=== PATIENT | male | born 1985 | race Caucasian/White ===

== ENCOUNTER 2018-04-03 18:24 | Emergency (ER) | payer MEDICAID, SELFPAY ==
[2018-04-03 18:27] VITALS: BP 138/118; PULSE 94; RESP 18; TEMP 36.4; O2SAT 97
--- NOTE | 2018-04-03 18:39 | W.ED.GENAD ---
Discharge Plan Disposition Patient Disposition: [facility] Condition: Stable Discharge Details Chief Complaint: Nk/Back Pain Clinical Impression: Back pain, Bulging lumbar disc Primary Care Provider: Rodriguez Roberts ED Provider: Romel Issa Home Meds and New Rx's Prescriptions: No Action vitamin B complex 1 EACH capsule 1 ea PO DAILY RF: 0 tramadol 50 mg tablet 50 mg PO Q4H PRN Qty: 180 RF: 2 diazepam 5 mg tablet 5 mg PO HS PRN (Reason: muscle spasm) Qty: 30 RF: 0 methylphenidate HCl [Ritalin] 20 mg tablet 20 mg PO TID MDD 60 mg Qty: 90 RF: 0 Medical Decision Making 32-year-old male states that 6 days ago he noticed numbness on his right neck and upper extremity. He now states he has had 2 days of low back pain. Over the past day and a half he noted increased numbness primarily below his umbilicus, to the right leg as well as his perineum. This afternoon while getting off a couch he felt abrupt increase in the low back pain and now reports numbness from the waist down about motor with her deficit. He denies recent fall, injury, illness. His temp is 36, pulse 94, somewhat hypertensive with blood pressure 141/87. Exam reveals decreased subjective sensation below the umbilicus including in the saddle distribution. Rectal exam with weak but present tone. No motor deficits. Reflexes intact. Differential diagnosis would include spinal cord lesion, central mass or tumor, myelopathy. Labs obtained which reveal unremarkable CBC, chemistries notable for hypomagnesemia. CRP within normal range. Patient given supplemental magnesium. Screening head CT and spine CT obtained. There is a broad-based disc bulge at C6/7/T1, there is also broad-based disc bulge at L4/5/S1. With these findings and the patient's presentation I am concerned for the possibility of cauda equina syndrome. On-call neurosurgery at [facility] contacted, Dr Yan. She agrees the patient should be evaluated for urgent MRI. Patient to be transported to [facility]. Lab Data Lab results reviewed: Yes I reviewed the patient's lab results. Laboratory Results - last 24 hr 04/03/18 04/03/18 04/03/18 19:03 19:03 19:03 WBC 7.99 RBC 4.99 Hgb 14.5 Hct 42.3 MCV 84.8 MCH 29.1 MCHC 34.3 RDW 13.1 Plt Count 206 MPV 11.4 H Immature Gran % 0.3 Neutrophils % 66.7 Lymphocytes % 22.7 Monocytes % 8.6 Eosinophils % 1.3 Basophils % 0.4 Absolute Neutrophils 5.34 Absolute Lymphocytes 1.81 Absolute Monocytes 0.69 Absolute Eosinophils 0.10 Absolute Basophils 0.03 Sodium 142 Potassium 4.0 Chloride 105 Carbon Dioxide 30.4 Anion Gap 6.6 BUN 18 Creatinine 1.09 Estimated GFR/1.73 m2 >= 60.00 Glucose 102 H Calcium 9.1 Magnesium 1.6 L Total Bilirubin 0.3 AST 18 ALT 28 Alkaline Phosphatase 73 C-Reactive Protein 0.11 Total Protein 7.9 Albumin 3.8 HPI General Mode of arrival: ambulatory. Date/Time Provider Initiated Documentation: 04/03/18 18:26. Limitations to Documentation: no limitations. Information obtained by: patient. History of Present Illness described as moderate, Quality is described as other (Numbness), and is localized to the right. Patient started experiencing this day(s) and it has been constant. No relieving factors improve symptom(s), No exacerbating factors reported . Patient notes denies fever/chills and headaches. Patient did receive the following treatments prior to arrival, none HPI Narrative: 32-year-old male states that he had the insidious onset 5 days ago of what started as right neck and right arm numbness this progressed to numbness that comes and goes on the right side of his body, worse today. He states this was associated with low back pain. Pain in his low back increased yesterday to today. He states he felt like he could not feel his stream of urine this afternoon and when he went to wipe his rectum he felt was insensate as well. When getting up off a couch this afternoon, the pain abruptly increased and he felt he could not feel his legs. No recent fall or trauma. He has not had a headache or recent illness. He has not had new clumsiness or new motor weakness. Denies incontinence. States that he has had degenerative disc disease in the past. He last had a lumbar steroid injection February 06 at [facility] where he has been followed in the pain clinic. Related Data Home Medications Medication Instructions Recorded Confirmed vitamin B complex 1 ea PO DAILY 10/09/14 04/03/18 tramadol 50 mg tablet 50 mg PO Q4H PRN #180 tab-cap 02/08/18 04/03/18 diazepam 5 mg tablet 5 mg PO HS PRN #30 tab-cap 03/02/18 04/03/18 methylphenidate 20 mg tablet 20 mg PO TID #90 tab-cap MDD 60 mg 03/15/18 04/03/18 Previous Rx's Medication Instructions Recorded tramadol 50 mg tablet 50 mg PO Q4H PRN #180 tab-cap 02/08/18 diazepam 5 mg tablet 5 mg PO HS PRN #30 tab-cap 03/02/18 methylphenidate 20 mg tablet 20 mg PO TID #90 tab-cap MDD 60 mg 03/15/18 Allergies Allergy/AdvReac Type Severity Reaction Status Date / Time No Known Allergies Allergy Unverified 04/03/18 18:46 General Stated Complaint: Nk/Back Pain BRIDGETTE: 3 Review of Systems Review of Systems No incontinence. 8 systems reviewed and otherwise neg PFSH Social History Smoking and Tabacco status: Former Tobacco Use Exam Narrative Exam Narrative: GEN: awake, alert, oriented 3. Pleasant, well groomed, interactive. HEAD: Normocephalic, atraumatic ENT: Mucous membranes moist, oropharynx unremarkable, External ear exam unremarkable EYES: PERRL, EOMI NECK: Full ROM, no ALBERTA, no menigismus CHEST/RESP: Nontender, clear to auscultation bilateral, no wheeze/rhonchi/rales CARDIOVASCULAR: RRR, no murmur, rub ang. 2+ Rad pulse bilateral ABDOMEN: Soft, nontender, no mass. +Bowel sounds Back: Nontender, no step-off or deformity. EXT: Full ROM, no edema, no rash. Subjectively diminished sensation below the umbilicus on the legs and saddle distribution. Subjectively diminished sensation right shoulder and humerus Neuro: Cranial nerves II through XII intact. Motor is rated 5 out of 5 in the bilateral upper and lower extremity. Patient has subjective lack of sensation right greater than left below the umbilicus. His rectal tone is weak but positive. 2+ patellar and ankle reflex bilaterally. Great toe proprioception intact bilateral. Psych: Speech fluent, thoughts congruent, affect normal Course Vital Signs Temperature 36.4 C L 04/03/18 18:27 Pulse 94 H 04/03/18 18:27 Respiratory Rate 18 04/03/18 18:27 Pulse Oximetry 97 04/03/18 18:27 Temperature 36.4 C L 04/03/18 18:27 Temperature Source Skin 04/03/18 18:27 Pulse 94 H 04/03/18 18:27 Respiratory Rate 18 04/03/18 18:27 Pulse Oximetry 97 04/03/18 18:27 Pain Level 8 04/03/18 18:27
--- NOTE | 2018-04-03 18:54 | DI.CT_ITS ---
SYMPTOMS/DIAGNOSIS: RIGHT-SIDED NUMBNESS, H/O DEGENERATIVE DISC DISEASE CRANIAL CT: There is no evidence of an intra/extra-axial hemorrhage. There is no evidence of significant white matter disease. There is no evidence of edema or a mass. The ventricles are normal. There is no skull fracture. As visualized, the paranasal sinuses and mastoid air cells appear normal. The soft tissues are intact. Note is made of periapical lucencies in the insula, which may represent periapical abscesses. C-SPINE CT: The study was conducted according to the usual protocol. Straightening of the normal cervical lordosis is identified. The vertebral bodies appear intact. There is some slight narrowing of the C3-C4 and C4-C5 and C5-C6 disc interspaces. There is a question regarding broad-based disc bulges at C6-C7 and C7-T1. Further evaluation of this finding with an MRI could be considered to evaluate the possibility of spinal stenosis. There is no evidence of a fracture or subluxation. The neural canal appears widely patent. There is no evidence of foraminal bony compromise. The posterior elements and facet joints are intact. The odontoid is intact and is closely applied to the anterior arch of C1. The prevertebral soft tissues are normal. SUMMARY: Question disc bulges or protrusions at C6-C7, C7-T1. Further assessment with MRI should be considered. There is no evidence of a fracture or subluxation. T-SPINE CT: The study was conducted according to the usual protocol. Note is made of mild degenerative changes involving the mid thoracic spine. There is nothing to suggest an acute fracture. The vertebral bodies, posterior elements, facet joints and paravertebral soft tissues are well maintained. L-SPINE CT: The study was carried out according to the usual protocol. There is no evidence of a fracture or subluxation and the bony structures are normally mineralized. The possibility of disc bulges at L4-5 and L5-S1 is raised. If there is any further specific clinical question regarding the possibility of spinal stenosis in this patient, then an MRI could be considered.
[2018-04-03 19:08] VITALS: BP 141/87
[2018-04-03 19:12] LABS: Abs Immature Grans 0.02 k/cumm (0.0-0.09); Absolute Basophil Count 0.03 k/cumm (0.0-0.2); Absolute Lymphocyte Count 1.81 k/cumm (1.2-3.4); Absolute Monocyte Count 0.69 k/cumm (0.11-0.7); Absolute Neutrophil Count 5.34 k/cumm (1.2-6.7); Basophils % 0.4; Eosinophils % 1.3; HCT 42.3 % (40.0-50.0); HGB 14.5 g/dL (13.5-17.5); Immature Grans % 0.3; Lymphocytes % 22.7; Mean Corp. HGB Concentration 34.3 g/dL (32.0-36.0); Mean Corpuscular Hemoglobin 29.1 pg (27.0-33.0); Mean Corpuscular Volume 84.8 fL (80-95); Mean Platelet Volume 11.4 fL (8.0-11.0); Monocytes % 8.6; Neutrophils % 66.7; Platelet Count 206 x1000/uL (130-400); RBC 4.99 m/cumm (4.50-6.00); RBC Distribution Width 13.1 % (11.8-14.1); White Blood Cell Count 7.99 k/cumm (4.4-10.8)
[2018-04-03 19:26] LABS: C-Reactive Protein 0.11 mg/dL (0.0-0.3); Magnesium 1.6 mg/dL (1.8-2.4)
[2018-04-03 19:28] LABS: ALT 28 U/L (12-78); AST 18 U/L (15-37); Albumin 3.8 g/dL (3.4-5.0); Alkaline Phosphatase 73 U/L (46-116); Anion Gap 6.6 mmol/L (3-11); BUN 18 mg/dL (7-18); Bilirubin, Total 0.3 mg/dL (0.2-1.0); CO2 30.4 mmol/L (21.0-32.0); CREATININE 1.09 mg/dL (0.70-1.30); Calcium 9.1 mg/dL (8.5-10.1); Chloride 105 mmol/L (98-107); Glucose 102 mg/dL (70-100); Sodium 142 mmol/L (136-145); Total Protein 7.9 g/dL (6.4-8.2)
[2018-04-03] MEDS: Normal Saline 1,000 ML 150 ML IV (19:47)
[2018-04-03] MEDS: MAGNESIUM SULFATE 1 GM/100 ML BAG IVPB (19:48)
[2018-04-03 20:04] LABS: ESR 7 MM/HR (0-15)
--- NOTE | 2018-04-03 20:52 | DI.VRAD_ITS ---
EXAM: CT Head Without Contrast EXAM DATE/TIME: 04/03/2018 6:57 PM CLINICAL HISTORY: 32 years old, male; Signs and symptoms; Numbness / parasthesia; Right; Patient HX: R sided numbness, neck, arm, groin, leg. Known degen disc disease TECHNIQUE: Axial computed tomography images of the head/brain without contrast. All CT scans at this facility use at least one of these dose optimization techniques: automated exposure control; mA and/or kV adjustment per patient size (includes targeted exams where dose is matched to clinical indication); or iterative reconstruction. Coronal and sagittal reformatted images were created and reviewed. COMPARISON: No relevant prior studies available. FINDINGS: Brain: Normal. No hemorrhage. No significant white matter disease. No edema. Ventricles: Normal. No ventriculomegaly. Bones/joints: Unremarkable. No acute fracture. Sinuses: Visualized sinuses are unremarkable. No acute sinusitis. Mastoid air cells: Visualized mastoid air cells are unremarkable. No mastoid effusion. Soft tissues: Unremarkable. Dental: Periapical lucencies in the insula may represent periapical abscess. IMPRESSION: Periapical lucencies in the insula may represent periapical abscess. No acute intracranial hemorrhage EXAM: CT Cervical Spine Without Contrast EXAM DATE/TIME: 04/03/2018 6:57 PM CLINICAL HISTORY: 32 years old, male; Signs and symptoms; Numbness / parasthesia; Right; Patient HX: R sided numbness, neck, arm, groin, leg. Known degen disc disease TECHNIQUE: Axial computed tomography images of the cervical spine without intravenous contrast. All CT scans at this facility use at least one of these dose optimization techniques: automated exposure control; mA and/or kV adjustment per patient size (includes targeted exams where dose is matched to clinical indication); or iterative reconstruction. Coronal and sagittal reformatted images were created and reviewed. COMPARISON: No relevant prior studies available. FINDINGS: Vertebrae: No acute fracture. Normal alignment. Minimal anterior osteophyte formation at C6 Discs/Spinal canal/Neural foramina: Broad-based disc bulge at C6/C7 and C7/T1. Soft tissues: Unremarkable. Lymph nodes: Small nodes in the cervical soft tissues Lungs: Lung apices are normal. IMPRESSION: Broad-based disc bulge at C6/C7 and C7/T1. Recommend MRI if clinically indicated Dictated and Authenticated by: Marck Beck MD. Ordering:KHADRA Urena MD
--- NOTE | 2018-04-03 20:57 | DI.VRAD_ITS ---
EXAM: CT Thoracic Spine Without Contrast EXAM DATE/TIME: 04/03/2018 6:57 PM CLINICAL HISTORY: 32 years old, male; Signs and symptoms; Numbness; Patient HX: R sided numbness in neck, arm, leg, groin. Known degen. Disc disease TECHNIQUE: Axial computed tomography images of the thoracic spine without intravenous contrast. All CT scans at this facility use at least one of these dose optimization techniques: automated exposure control; mA and/or kV adjustment per patient size (includes targeted exams where dose is matched to clinical indication); or iterative reconstruction. Coronal and sagittal reformatted images were created and reviewed. COMPARISON: No relevant prior studies available. FINDINGS: Vertebrae: Mild degenerative changes in the midthoracic spine. There is no evidence of acute fracture. Discs/Spinal canal/Neural foramina: No spinal stenosis. No neural foraminal narrowing. Soft tissues: Unremarkable. IMPRESSION: 1. Mild degenerative changes in the midthoracic spine. 2. There is no evidence of acute fracture. . EXAM: CT Lumbar Spine Without Contrast EXAM DATE/TIME: 04/03/2018 6:57 PM CLINICAL HISTORY: 32 years old, male; Signs and symptoms; Numbness; Patient HX: R sided numbness in neck, arm, leg, groin. Known degen. Disc disease TECHNIQUE: Axial computed tomography images of the lumbar spine without intravenous contrast. All CT scans at this facility use at least one of these dose optimization techniques: automated exposure control; mA and/or kV adjustment per patient size (includes targeted exams where dose is matched to clinical indication); or iterative reconstruction. Coronal and sagittal reformatted images were created and reviewed. COMPARISON: No relevant prior studies available. FINDINGS: Vertebrae: No acute fracture. Normal alignment. Discs/Spinal canal/Neural foramina: Mild broad-based disc bulge at L4/L5 and L5/S1 consistent with degenerative disc disease. Soft tissues: Unremarkable. IMPRESSION: Mild broad-based disc bulge at L4/L5 and L5/S1 consistent with degenerative disc disease. Recommend MRI if clinically indicated Dictated and Authenticated by: Marck Beck MD. Ordering:KHADRA Urena MD
[2018-04-03] MEDS: Ketorolac 30 MG/ML VIAL IVP ×2 (22:56→22:58)
== END 2018-04-03 23:02 | disposition short-term general hospital (02) ==
PROVIDERS: Emergency Provider Emergency Medicine; PCP Family Medicine
DX: M54.5 Low back pain (principal); M51.16 Intervertebral disc disorders with radiculopathy, lumbar region; E83.42 Hypomagnesemia; M50.13 Cervical disc disorder with radiculopathy, cervicothoracic region; M54.2 Cervicalgia; R03.0 Elevated blood-pressure reading, without diagnosis of hypertension
CPT/HCPCS: 36415; 80053; 85652; 96361; 96365; 96366; 96375; 99285; 70450; 72125; 72128; 72131; 83735; 85025; 86140; J3475

== ENCOUNTER 2018-05-22 15:04 | Outpatient (CLI) | payer MEDICAID, SELFPAY ==
[2018-05-22 15:50] LABS: Abs Immature Grans 0.01 k/cumm (0.0-0.09); Absolute Basophil Count 0.03 k/cumm (0.0-0.2); Absolute Eosinophil Count 0.05 k/cumm (0.0-0.7); Absolute Lymphocyte Count 2.32 k/cumm (1.2-3.4); Absolute Monocyte Count 0.47 k/cumm (0.11-0.7); Absolute Neutrophil Count 4.11 k/cumm (1.2-6.7); Basophils % 0.4; Eosinophils % 0.7; HCT 42.8 % (40.0-50.0); HGB 14.6 g/dL (13.5-17.5); Immature Grans % 0.1; Lymphocytes % 33.2; Mean Corp. HGB Concentration 34.1 g/dL (32.0-36.0); Mean Corpuscular Hemoglobin 28.7 pg (27.0-33.0); Mean Corpuscular Volume 84.1 fL (80-95); Mean Platelet Volume 11.7 fL (8.0-11.0); Monocytes % 6.7; Neutrophils % 58.9; Platelet Count 226 x1000/uL (130-400); RBC 5.09 m/cumm (4.50-6.00); RBC Distribution Width 13.2 % (11.8-14.1); White Blood Cell Count 6.99 k/cumm (4.4-10.8)
[2018-05-22 16:20] LABS: ALT 29 U/L (12-78); AST 22 U/L (15-37); Albumin 3.9 g/dL (3.4-5.0); Alkaline Phosphatase 67 U/L (46-116); Bilirubin, Direct 0.12 mg/dL (0.00-0.20); Bilirubin, Total 0.4 mg/dL (0.2-1.0); Total Protein 7.3 g/dL (6.4-8.2)
[2018-05-24 06:52] LABS: Vitamin D 25 Total 14.3 ng/ml (30-100)
== END 2018-05-22 15:24 ==
PROVIDERS: PCP Family Medicine; Visit Provider Psychiatry & Neurology Neurology
DX: G35 Multiple sclerosis (principal); R50.9 Fever, unspecified
CPT/HCPCS: 36415; 80076; 82306; 85025

== ENCOUNTER 2018-10-09 11:44 | Outpatient (CLI) | payer MEDICAID, SELFPAY ==
[2018-10-09 12:57] LABS: Abs Immature Grans 0.01 k/cumm (0.0-0.09); Absolute Basophil Count 0.02 k/cumm (0.0-0.2); Absolute Eosinophil Count 0.14 k/cumm (0.0-0.7); Absolute Lymphocyte Count 1.53 k/cumm (1.2-3.4); Absolute Monocyte Count 0.55 k/cumm (0.11-0.7); Absolute Neutrophil Count 4.02 k/cumm (1.2-6.7); Basophils % 0.3; Eosinophils % 2.2; HCT 43.6 % (40.0-50.0); HGB 15.1 g/dL (13.5-17.5); Immature Grans % 0.2; Lymphocytes % 24.4; Mean Corp. HGB Concentration 34.6 g/dL (32.0-36.0); Mean Corpuscular Volume 83.8 fL (80-95); Mean Platelet Volume 10.9 fL (8.0-11.0); Monocytes % 8.8; Neutrophils % 64.1; Platelet Count 238 x1000/uL (130-400); White Blood Cell Count 6.27 k/cumm (4.4-10.8)
[2018-10-09 13:12] LABS: ALT 51 U/L (12-78); AST 21 U/L (15-37); Alkaline Phosphatase 70 U/L (46-116); Bilirubin, Direct 0.11 mg/dL (0.00-0.20); Bilirubin, Total 0.3 mg/dL (0.2-1.0); Total Protein 7.8 g/dL (6.4-8.2)
== END 2018-10-09 12:04 ==
PROVIDERS: PCP Family Medicine; Visit Provider Psychiatry & Neurology Neurology
DX: G35 Multiple sclerosis (principal)
CPT/HCPCS: 36415; 80076; 85025

== ENCOUNTER 2019-03-08 15:22 | Outpatient (CLI) | payer MEDICAID, SELFPAY ==
[2019-03-08 15:46] LABS: Abs Immature Grans 0.01 k/cumm (0.0-0.09); Absolute Basophil Count 0.02 k/cumm (0.0-0.2); Absolute Eosinophil Count 0.07 k/cumm (0.0-0.7); Absolute Lymphocyte Count 1.21 k/cumm (1.2-3.4); Absolute Monocyte Count 0.67 k/cumm (0.11-0.7); Absolute Neutrophil Count 4.36 k/cumm (1.2-6.7); Basophils % 0.3; Eosinophils % 1.1; HCT 43.2 % (40.0-50.0); HGB 14.8 g/dL (13.5-17.5); Immature Grans % 0.2 %; Lymphocytes % 19.1; Mean Corp. HGB Concentration 34.3 g/dL (32.0-36.0); Mean Corpuscular Hemoglobin 28.9 pg (27.0-33.0); Mean Corpuscular Volume 84.4 fL (80-95); Mean Platelet Volume 10.6 fL (8.0-11.0); Monocytes % 10.6; Neutrophils % 68.7; Platelet Count 219 x1000/uL (130-400); RBC 5.12 m/cumm (4.50-6.00); RBC Distribution Width 12.7 % (11.8-14.1); White Blood Cell Count 6.34 k/cumm (4.4-10.8)
[2019-03-08 16:22] LABS: ALT 112 U/L (16-63); AST 48 U/L (15-37); Albumin 4.2 g/dL (3.4-5.0); Alkaline Phosphatase 79 U/L (46-116); Anion Gap 8.8 mmol/L (3-11); BUN 25 mg/dL (7-18); Bilirubin, Total 0.4 mg/dL (0.2-1.0); CO2 29.2 mmol/L (21.0-32.0); CREATININE 0.87 mg/dL (0.70-1.30); Calculated LDL 169 mg/dL; Chloride 102 mmol/L (98-107); Cholesterol 225 mg/dL (<200); Glucose 90 mg/dL (74-106); HDL Cholesterol 46 mg/dL (40-60); Potassium 4.5 mmol/L (3.5-5.1); Sodium 140 mmol/L (136-145); Total Protein 7.7 g/dL (6.4-8.2); Triglyceride 53 mg/dL (<150)
== END 2019-03-08 15:42 ==
PROVIDERS: PCP Family Medicine; Visit Provider Family Medicine
DX: G35 Multiple sclerosis (principal); R50.9 Fever, unspecified
CPT/HCPCS: 36415; 80053; 80061; 85025

== ENCOUNTER 2019-09-10 03:13 | Outpatient (CLI) | payer MEDICAID, SELFPAY ==
[2019-09-10 15:01] LABS: HCT 42.5 % (40.0-50.0); HGB 14.4 g/dL (13.5-17.5); Mean Corp. HGB Concentration 33.9 g/dL (32.0-36.0); Mean Corpuscular Hemoglobin 28.5 pg (27.0-33.0); Mean Corpuscular Volume 84.2 fL (80-95); Mean Platelet Volume 10.8 fL (8.0-11.0); Platelet Count 235 x1000/uL (130-400); RBC 5.05 m/cumm (4.50-6.00); RBC Distribution Width 12.6 % (11.8-14.1); White Blood Cell Count 5.39 k/cumm (4.4-10.8)
[2019-09-10 16:09] LABS: ALT 53 U/L (16-63); AST 24 U/L (15-37); Alkaline Phosphatase 78 U/L (46-116); Anion Gap 9.8 mmol/L (3-11); BUN 26 mg/dL (7-18); Bilirubin, Total 0.3 mg/dL (0.2-1.0); CO2 26.2 mmol/L (21.0-32.0); CREATININE 0.87 mg/dL (0.70-1.30); Calcium 8.7 mg/dL (8.5-10.1); Chloride 106 mmol/L (98-107); Glucose 93 mg/dL (74-106); Potassium 4.4 mmol/L (3.5-5.1); Sodium 142 mmol/L (136-145); Total Protein 7.2 g/dL (6.4-8.2)
== END 2019-09-10 03:33 ==
PROVIDERS: PCP Family Medicine; Visit Provider Family Medicine
DX: G35 Multiple sclerosis (principal)
CPT/HCPCS: 36415; 80053; 85027

== ENCOUNTER 2020-01-02 00:46 | Outpatient (CLI) | payer MEDICAID, SELFPAY ==
--- NOTE | 2020-01-02 08:00 | DI.CT_ITS ---
EXAM: CT THORACIC SPINE WO CLINICAL HISTORY: T 8-9 DISC HERNIATION,PRE SURGICAL, ? CALCIFIED DISC. TECHNIQUE: Imaging Protocol: Axial computed tomography images with coronal and sagittal reformatted images were created and reviewed. COMPARISON: MR MRI - LUMBAR SPINE WO CONTRAST from 07/04/[address] thoracic lumbar spine wo from 04/03/[address] thoracic lumbar spine wo from 04/03/2018 FINDINGS: Bones: No fractures or dislocations are seen. The alignment of the spine is normal including the cerv icothoracic junction. There are degenerative changes present throughout the thoracic spine. There is calcification of anterior longitudinal ligaments at multiple levels of the thoracic spine. No disca l calcifications are seen. Soft tissues: The soft tissues of the chest are unremarkable. No large disk herniations are identifie d. IMPRESSION: Degenerative changes in the thoracic spine. RADIATION DOSE DELIVERED: 1,029.25mGy.cm Total DLP 1,029.25mGy.cm Total DLP DATA REPOSITORY: All CT scans at this facility are submitted to the National Radiology Data Registry (NRDR) Dose Index Registry (DIR) with the [employer] ([employer]). RADIATION OPTIMIZATION: All CT scans at this facility use at least one of these dose optimization te chniques: automated exposure control; mA and/or kV adjustment per patient size (includes targeted exa ms where dose is matched to clinical indication); or iterative reconstruction.
== END 2020-01-02 01:06 ==
PROVIDERS: PCP Family Medicine; Visit Provider Physician Assistant Surgical
DX: M47.814 Spondylosis without myelopathy or radiculopathy, thoracic region (principal)
CPT/HCPCS: 72128

== ENCOUNTER 2020-05-29 03:00 | Outpatient (CLI) | payer MEDICAID, SELFPAY ==
[2020-05-29 15:08] LABS: HGB 14.9 g/dL (13.5-17.5); MCH 28.8 pg (27.0-33.0); MCHC 33.1 % (32.0-36.0); MPV 10.9 fL (8.0-11.0); Platelet Count 219 10^3/uL (130-400); RBC 5.17 10^6/uL (4.36-5.78); RDW 12.5 % (11.8-14.1); RDW-SD 39.7 fL
[2020-05-29 16:33] LABS: ALT 48 U/L (16-63); AST 23 U/L (15-37); Albumin 3.9 g/dL (3.4-5.0); Alkaline Phosphatase 83 U/L (46-116); Anion Gap 5.3 mmol/L (3-11); BUN 23 mg/dL (7-18); Bilirubin, Total 0.4 mg/dL (0.2-1.0); CO2 30.7 mmol/L (21.0-32.0); CREATININE 1.1 mg/dL (0.70-1.30); Calcium 9.2 mg/dL (8.5-10.1); Chloride 105 mmol/L (98-107); Glucose 105 mg/dL (74-106); Potassium 4.5 mmol/L (3.5-5.1); Sodium 141 mmol/L (136-145); Total Protein 7.5 g/dL (6.4-8.2)
[2020-06-02 17:05] LABS: 1,25-Dihydroxyvitamin D 28 pg/mL (18-64)
== END 2020-05-29 03:01 | disposition home or self-care (01) ==
LOC: LBO 03:00
PROVIDERS: PCP Family Medicine; Visit Provider Family Medicine
DX: D64.9 Anemia, unspecified (principal); E55.9 Vitamin D deficiency, unspecified; R10.9 Unspecified abdominal pain
CPT/HCPCS: 36415; 80053; 85027; 82652

== ENCOUNTER 2022-05-26 13:25 | Outpatient (REF) | payer MEDICARE, MEDICAID, SELFPAY ==
[2022-06-23 08:42] LABS: Fungus Smear No Fungi Seen
== END 2022-05-26 13:26 | disposition home or self-care (01) ==
LOC: LBN 13:25
PROVIDERS: PCP Family Medicine; Visit Provider Family Medicine
DX: R05.8 Other specified cough (principal); Z77.120 Contact with and (suspected) exposure to mold (toxic); R09.3 Abnormal sputum; F17.210 Nicotine dependence, cigarettes, uncomplicated
CPT/HCPCS: 87102; 87206; 87070; 87205

== ENCOUNTER 2022-06-07 01:32 | Emergency (ER) | payer MEDICARE, MEDICAID, SELFPAY ==
[2022-06-07] VITALS (11 sets, daily range): BP systolic 144–152; BP diastolic 69–85; PULSE 63–70; RESP 13–22; TEMP 36.7; O2SAT 98–100
--- NOTE | 2022-06-07 01:30 | RT.EKG_ITS ---
APPROVED REPORT Exam: Resting ECG Reason for Exam: trouble breathing Patient Location: E HR:67 bpm ECG Measurements Heart Rate 67 AXIS MO 173 P 45 QRSd 96 QRS 18 QT 406 T 17 QTc 429 Conclusion Sinus rhythm...normal P axis, V-rate 60- 99. Sinus. Normal intervals. No STEMI. I have reviewed and interpreted ECG and agree with software generated interpretation.
--- NOTE | 2022-06-07 01:45 | DI.RAD_ITS ---
Exam(s) XR CHEST 2V PA LATERAL EXAM: XR CHEST 2V PA LATERAL CLINICAL HISTORY: SOB, r/o acute disease TECHNIQUE: 2D digital imaging was performed of the chest. Two images were obtained. PA and lateral views were obtained. COMPARISON: No exams were available for comparison FINDINGS: MEDIASTINUM: Normal. HEART: Normal. PULMONARY VASCULATURE: Normal. LUNGS: Clear. PLEURAL SPACE: No pleural effusion or pneumothorax. BONE:Within normal limits for the patient's age. OTHER FINDINGS:Normal. IMPRESSION: No acute pulmonary findings. DATA REPOSITORY: RADIATION DOSE DELIVERED:
--- NOTE | 2022-06-07 01:59 | ED.GENADUL_ITS ---
Discharge Plan Disposition Patient Disposition: Home Condition: Stable Discharge Details Clinical Impression: Dizziness, Chronic nausea, Chronic shortness of breath, Paresthesias Primary Care Provider: Lamont Owusu. ED Provider: Sheri Lezama Home Meds and New Rx's Prescriptions: Continued fluoxetine 40 mg capsule 40 mg PO DAILY Qty: 90 3RF baclofen 10 mg tablet 10 mg PO TID zinc 50 mg tablet 50 mg PO DAILY diroximel fumarate 231 mg capsule,delayed release(DR/EC) 462 mg PO BID albuterol sulfate [Ventolin HFA] 90 mcg/actuation HFA aerosol inhaler 2 puff inhalation QID PRN (Reason: shortness of breath or wheezing) Qty: 8.5 0RF (DME) Aerochamber Mini Spacer See Rx Instructions .ROUTE .MEDSUPPLY Qty: 1 0RF Rx Instructions: As directed vitamin B complex 1 EACH capsule 1 ea PO DAILY naloxone [Narcan] 4 mg/actuation spray,non-aerosol 4 mg intranasal Q2M PRN (Reason: opioid overdose) Qty: 2 0RF Rx Instructions: spray 1 dose into ONE nostril; alternate nostrils w each dose until help arrives losartan 25 mg tablet 25 mg PO DAILY Qty: 90 4RF polyethylene glycol 3350 [Miralax] 17 gram/dose powder 17 g PO DAILY Qty: 850 4RF tramadol 50 mg tablet 50 mg PO Q4H PRN MDD 3 Qty: 90 0RF buprenorphine [Butrans] 15 mcg/hour patch weekly 1 patch transdermal Q7D Qty: 4 5RF methylphenidate HCl [Ritalin] 20 mg tablet 20 mg PO TID MDD 60mg Qty: 84 0RF diazepam 5 mg tablet 5 mg PO HS PRN (Reason: muscle spasm) Qty: 28 2RF gabapentin 400 mg capsule 400 mg PO TID Qty: 90 5RF No Action buspirone 15 mg tablet 7.5 mg PO BID Qty: 30 2RF Discharge Instructions Instructions: Acute Nausea and Vomiting (ED), Dyspnea (ED), Dizziness (ED) Additional Instructions: Your blood tests, EKG and imaging today are reassuring and show no evidence of acute concerning or significant findings. Drink plenty of fluids and get plenty of rest. Follow-up with your primary care doctor in 1 week. Return to the emergency department with any worsening or new concerning symptoms. Discharge Data Discharge Date/Time-TO BE ENTERED AT DEPARTURE: 06/07/22 04:24 Discharge Physician: Sheri Lezama Medical Decision Making 36-year-old male with a history of multiple sclerosis, fibromyalgia, PTSD, anxiety and depression who has been followed by his PCP for chronic dizziness and nausea in the setting of mold exposure at his apartment for the past few months presents for cute onset of dizziness, nausea associated with shortness of breath and tingling in his hands upon walking to his bathroom in his apartment earlier this morning. Patient appears significantly anxious. His vitals are reassuring. His EKG notes a rate of 67, sinus with no acute ischemic findings. He denies any posterior headache, neck pain, thunderclap sensation and has no fever, focal deficits or meningeal signs to suggest meningitis or CVA. He has no tachycardia, hypoxia, leg pain or swelling to suggest PE and is PERC negative. He does endorse that the symptoms have come and gone for months and are not present when he leaves the apartment and are only present when in the apartment. Will obtain screening labs, chest x-ray. Patient drove him self here but has Valium at home. Screening labs reassuring. Chest x-ray negative for acute disease. Patient feels comfortable going home. He was advised to take his regular medications including his Valium as directed. Advised to follow up with the primary care doctor for re-evaluation. Usual and customary return precautions given prior to discharge. Medical Records Medical records reviewed: Yes I reviewed the patient's medical records. Imaging Data Radiologic Study: Radiologist's impression: XR Chest Exam date and time: 06/07/2022 2:07 AM Age: 36 years old Clinical indication: Shortness of breath; Patient HX: SOB, R/O acute disease TECHNIQUE: Imaging protocol: Radiologic exam of the chest. Views: 2 views. COMPARISON: CTA THORAX 03/21/2017 2:04 PM FINDINGS: Lungs: No pulmonary consolidation is seen. Pleural spaces: No pleural effusion or pneumothorax is demonstrated. Heart/Mediastinum: Cardiac monitoring leads overlie the exam. Heart size is normal. Bones/joints: The visualized bony structures appear grossly intact, as seen. IMPRESSION: No active disease is seen in the chest. Lab Data Lab results reviewed: Yes I reviewed the patient's lab results. Labs: Laboratory Tests Range/Units 06/07/22 06/07/22 06/07/22 03:50 03:50 03:50 WBC (4.4-10.8) 10^3/uL 7.63 RBC (4.36-5.78) 10^6/uL 4.58 Hgb (13.5-17.5) g/dL 13.4 L Hct (40.0-50.0) % 38.7 L MCV (80-95) fL 85 MCH (27.0-33.0) pg 29.3 MCHC (32.0-36.0) % 34.6 RDW (11.8-14.1) % 12.7 Plt Count (130-400) 10^3/uL 185 MPV (8.0-11.0) fL 11.2 H Immature Gran % 0.3 Neutrophils % 44.9 Lymphocytes % 43.0 Monocytes % 9.7 Eosinophils % 1.6 Basophils % 0.5 Nucleated RBC % (0.0-0.3) % 0.0 Absolute Neutrophils (1.2-6.7) 10^3/uL 3.43 Absolute Lymphocytes (1.2-3.4) 10^3/uL 3.28 Absolute Monocytes (0.1-0.8) 10^3/uL 0.74 Absolute Eosinophils (0.0-0.7) 10^3/uL 0.12 Absolute Basophils (0.0-0.2) 10^3/uL 0.04 Carboxyhemoglobin % % 3.3 Sodium (136-145) mmol/L 139 Potassium (3.5-5.1) mmol/L 3.4 L Chloride (98-107) mmol/L 104 Carbon Dioxide (21.0-32.0) mmol/L 28.2 Anion Gap (3-11) mmol/L 6.8 BUN (7-18) mg/dL 22 H Creatinine (0.70-1.30) mg/dL 0.9 Est GFR (CKD-EPI 2020) (mL/min/1.73m2) 112.81 Glucose (74-106) mg/dL 98 Calcium (8.5-10.1) mg/dL 8.7 Total Bilirubin (0.2-1.0) mg/dL 0.3 AST (15-37) U/L 24 ALT (16-63) U/L 27 Alkaline Phosphatase (46-116) U/L 81 Total Protein (6.4-8.2) g/dL 7.3 Albumin (3.4-5.0) g/dL 3.8 ECG Data Attestation: I personally reviewed and interpreted this ECG (s) as follows: Interpretation: Rate of 67, sinus, normal intervals, no STEMI. HPI General Mode of arrival: ambulatory . Date/Time Provider Initiated Documentation: 06/07/22 01:37 . Limitations to Documentation: no limitations . Information obtained by: patient . HPI Narrative: Patient is a 36-year-old male with a history of multiple sclerosis, fibromyalgia, ADHD, anxiety and depression who presents for shortness of breath, dizziness and nausea that started when he awoke to go to the bathroom this morning. Patient states he has had similar symptoms ongoing for several months for which she has been seen by his primary care doctor due to concern for exposure to mold in his apartment. Patient states his apartment is currently being treated for mold. Patient states that the past few months he has dealt with a strong mold smell with frontal headache and nausea. He states he only has the symptoms when he is in his apartment and then they usually resolve approximately 30 minutes after leaving his apartment. Patient states that his primary care doctor has recently tested his sputum for mold. Patient states when he awoke to go to the bathroom this morning he smelled the usual strong mold smell and felt short of breath with tingling in his hands. Patient states he takes Valium at home most days as needed for anxiety. Patient states he started to feel anxious when he noted the tingling in his hands. He states he did not take any Valium but drove directly here. He denies any known fever, thunderclap headache, blurry vision, neck pain, chest pain, abdominal pain, vomiting or diarrhea. Patient states he does not think he has carbon monoxide detectors at home. Related Data Home Medications Medication Instructions Recorded Confirmed vitamin B complex 1 ea PO DAILY 10/09/14 06/07/22 baclofen 10 mg tablet 10 mg PO TID 04/12/18 06/07/22 zinc 50 mg tablet 50 mg PO DAILY 06/03/20 06/07/22 naloxone 4 mg/actuation nasal 4 mg intranasal Q2M PRN opioid 09/08/20 06/07/22 spray (Narcan) overdose #2 ea diroximel fumarate 231 mg 462 mg PO BID 03/24/21 05/25/22 capsule,delayed release losartan 25 mg tablet 25 mg PO DAILY #90 tabs 07/26/21 06/07/22 fluoxetine 40 mg capsule 40 mg PO DAILY #90 caps 09/22/21 06/07/22 polyethylene glycol 3350 17 17 g PO DAILY #850 grams 03/19/22 06/07/22 gram/dose oral powder (Miralax) tramadol 50 mg tablet 50 mg PO Q4H PRN #90 tab-caps 05/19/22 06/07/22 albuterol sulfate 90 mcg/actuation 2 puff inhalation QID PRN 05/25/22 06/07/22 aerosol inhaler (Ventolin HFA) shortness of breath or wheezing #8.5 grams inhalational spacing device #1 ea 05/25/22 05/25/22 (Aerochamber Mini) Butrans 15 mcg/hour transdermal 1 patch transdermal Q7D #4 ea 05/30/22 06/07/22 patch (buprenorphine) methylphenidate HCl 20 mg tablet 20 mg PO TID #84 tabs 05/30/22 06/07/22 (Ritalin) diazepam 5 mg tablet 5 mg PO HS PRN muscle spasm #28 06/03/22 06/07/22 tab-caps gabapentin 400 mg capsule 400 mg PO TID #90 caps 06/03/22 06/07/22 buspirone 15 mg tablet 7.5 mg PO BID #30 tabs 06/08/22 Previous Rx's Medication Instructions Recorded naloxone 4 mg/actuation nasal 4 mg intranasal Q2M PRN opioid 09/08/20 spray (Narcan) overdose #2 ea losartan 25 mg tablet 25 mg PO DAILY #90 tabs 07/26/21 fluoxetine 40 mg capsule 40 mg PO DAILY #90 caps 09/22/21 polyethylene glycol 3350 17 17 g PO DAILY #850 grams 03/19/22 gram/dose oral powder (Miralax) tramadol 50 mg tablet 50 mg PO Q4H PRN #90 tab-caps 05/19/22 albuterol sulfate 90 mcg/actuation 2 puff inhalation QID PRN 05/25/22 aerosol inhaler (Ventolin HFA) shortness of breath or wheezing #8.5 grams inhalational spacing device #1 ea 05/25/22 (Aerochamber Mini) Butrans 15 mcg/hour transdermal 1 patch transdermal Q7D #4 ea 05/30/22 patch (buprenorphine) methylphenidate HCl 20 mg tablet 20 mg PO TID #84 tabs 05/30/22 (Ritalin) diazepam 5 mg tablet 5 mg PO HS PRN muscle spasm #28 06/03/22 tab-caps gabapentin 400 mg capsule 400 mg PO TID #90 caps 06/03/22 buspirone 15 mg tablet 7.5 mg PO BID #30 tabs 06/08/22 Allergies Allergy/AdvReac Type Severity Reaction Status Date / Time No Known Allergies Allergy Verified 06/07/22 01:46 General Stated Complaint: SOB BRIDGETTE: 3 Review of Systems All systems reviewed & are unremarkable except as noted in HPI and below Constitutional Constitutional: Reports as per HPI, Denies chills and Denies fever(s) Eyes Eyes: Denies blurry vision ENT Ears, Nose, Mouth, and Throat: Reports dizziness, Denies sore throat and Denies throat swelling Cardiovascular Cardiovascular: Denies chest pain and Reports dyspnea Respiratory Respiratory: Denies cough and Reports dyspnea Gastrointestinal Gastrointestinal: Denies abdominal pain, Denies diarrhea, Reports nausea and Denies vomiting Genitourinary Genitourinary: Denies hematuria and Denies dysuria Musculoskeletal Musculoskeletal: Denies back pain and Denies numbness Integumentary/Breasts Skin/Breast: Denies lesions and Denies rash Neurologic Neurologic: Reports dizziness, Denies localized weakness and Denies numbness Allergic/Immunologic Allergic/Immunologic: Denies throat swelling PFSH All Active Problems (Updated 06/07/22 @ 04:15 by Sheri Lezama DO) Dizziness (Acute) Chronic nausea (Acute) Chronic shortness of breath (Acute) Paresthesias (Acute) Low libido (Acute) Constipation (Acute) Acute pain associated with herpes zoster (Acute) Peripheral edema (Acute) Vitamin D deficiency (Acute) Thoracic disc herniation (Chronic 10/31/14) Raynaud's phenomenon without gangrene (Chronic 01/29/16) Family history of cardiovascular disease (Chronic) HYPERTENSION Back pain (Chronic 08/12/14) 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 Demyelinating lesions spinal cord and brain Surgical History (Updated 06/07/22 @ 03:55 by Sheri Lezama DO) No significant past surgical history Family History (Updated 04/12/18 @ 08:34 by Rodriguez Roberts MD) Other Family history of cardiovascular disease Social History Smoking/Tobacco Use Status: Current every day Smoking risk assessment performed?: Yes Drug use: Occasionally Substance use type: marijuana Do you feel safe in your relationship?: Yes Exam Const General: cooperative, healthy appearing and no acute distress HENMT Head: normal to inspection Ears: hearing grossly normal bilaterally and external ears normal Face and sinus: normal facial exam Mouth: oral mucosae normal Throat: posterior oropharynx normal Eyes General: appearance normal, both eyes and all related structures Pupils: PERRL EOM: EOM intact bilaterally Neck Neck: normal visual inspection and No submandibular swelling Lymphatic: no lymphadenopathy noted Chest Chest: normal inspection of the chest and no tenderness Resp Effort & Inspection: normal respiratory effort and able to speak in complete sentences Auscultation: clear to auscultation bilaterally Cardio Rate: regular rate Rhythm: regular rhythm GI Inspection: normal to inspection Palpation: soft, not firm, not rigid and nontender Auscultation: normal bowel sounds Skin General skin exam: no rashes or lesions noted Neuro General: patient alert, patient awake, patient oriented x3, moves all extremities and no meningeal signs Cranial Nerves: CN's II-XI intact bilaterally Cognition: normal cognition Speech: speech normal Motor: muscle tone normal throughout and strength 5/5 throughout Sensory Exam: no sensory deficits noted Extrem General: normal to inspection, full ROM, capillary refill normal, no calf tenderness bilaterally and no edema Psych Appearance: grossly normal Mental Status: mental status grossly normal Speech and Movement: speech and movement normal Affect: normal affect Course Vital Signs Vital signs: Vital Signs Pulse 65 06/07/22 01:36 Respiratory Rate 22 06/07/22 01:36 Blood Pressure 152/85 H 06/07/22 01:36 Pulse Oximetry 98 06/07/22 01:36 Temperature 98.1 F 06/07/22 01:55 Pulse 65 06/07/22 01:36 Respiratory Rate 17 06/07/22 01:39 Respiratory Effort Non-Labored 06/07/22 01:39 Respiratory Depth Normal 06/07/22 01:39 Respiratory Pattern Normal 06/07/22 01:39 Blood Pressure 152/85 H 06/07/22 01:36 Pulse Oximetry 98 06/07/22 01:36 Oxygen Delivery Method Room Air 06/07/22 01:36 Oxygen Flow Rate 0 06/07/22 01:36
--- NOTE | 2022-06-07 03:51 | DI.VRAD_ITS ---
PROCEDURE INFORMATION: Exam: XR Chest Exam date and time: 06/07/2022 2:07 AM Age: 36 years old Clinical indication: Shortness of breath; Patient HX: SOB, R/O acute disease TECHNIQUE: Imaging protocol: Radiologic exam of the chest. Views: 2 views. COMPARISON: CTA THORAX 03/21/2017 2:04 PM FINDINGS: Lungs: No pulmonary consolidation is seen. Pleural spaces: No pleural effusion or pneumothorax is demonstrated. Heart/Mediastinum: Cardiac monitoring leads overlie the exam. Heart size is normal. Bones/joints: The visualized bony structures appear grossly intact, as seen. IMPRESSION: No active disease is seen in the chest. Dictated and Authenticated by: Napoleon Lemos MD. Ordering:OG Wade MD
[2022-06-07 03:54] LABS: Abs Immature Grans 0.02 10^3/uL (0.0-0.06); Absolute Basophil Count 0.04 10^3/uL (0.0-0.2); Absolute Eosinophil Count 0.12 10^3/uL (0.0-0.7); Absolute Lymphocyte Count 3.28 10^3/uL (1.2-3.4); Absolute Monocyte Count 0.74 10^3/uL (0.1-0.8); Absolute Neutrophil Count 3.43 10^3/uL (1.2-6.7); Basophils % 0.5; Carboxyhemoglobin 3.3 %; Eosinophils % 1.6; HCT 38.7 % (40.0-50.0); HGB 13.4 g/dL (13.5-17.5); Immature Grans % 0.3; MCH 29.3 pg (27.0-33.0); MCHC 34.6 % (32.0-36.0); MCV 85 fL (80-95); MPV 11.2 fL (8.0-11.0); Monocytes % 9.7; Neutrophils % 44.9; Platelet Count 185 10^3/uL (130-400); RBC 4.58 10^6/uL (4.36-5.78); RDW 12.7 % (11.8-14.1); RDW-SD 38.6 fL; WBC 7.63 10^3/uL (4.4-10.8)
[2022-06-07 04:12] LABS: ALT 27 U/L (16-63); AST 24 U/L (15-37); Albumin 3.8 g/dL (3.4-5.0); Alkaline Phosphatase 81 U/L (46-116); Anion Gap 6.8 mmol/L (3-11); BUN 22 mg/dL (7-18); Bilirubin, Total 0.3 mg/dL (0.2-1.0); CO2 28.2 mmol/L (21.0-32.0); CREATININE 0.9 mg/dL (0.70-1.30); Calcium 8.7 mg/dL (8.5-10.1); Chloride 104 mmol/L (98-107); Estimated GFR 112.81 (mL/min/1.73m2); Glucose 98 mg/dL (74-106); Potassium 3.4 mmol/L (3.5-5.1); Sodium 139 mmol/L (136-145); Total Protein 7.3 g/dL (6.4-8.2)
== END 2022-06-07 04:24 | disposition home or self-care (01) ==
PROVIDERS: Emergency Provider Physician Assistant; PCP Family Medicine
DX: R42 Dizziness and giddiness (principal); R06.02 Shortness of breath; R11.0 Nausea; R20.2 Paresthesia of skin
CPT/HCPCS: 80053; 82375; 93005; 99283; 71046; 85025; 93010

== ENCOUNTER 2022-12-12 03:56 | Outpatient (CLI) | payer MEDICARE, MEDICAID, SELFPAY ==
[2022-12-12 15:07] LABS: HCT 47.2 % (40.0-50.0); HGB 15.5 g/dL (13.5-17.5); MCHC 32.8 % (32.0-36.0); MCV 85 fL (80-95); MPV 10.4 fL (8.0-11.0); Platelet Count 250 10^3/uL (130-400); RBC 5.53 10^6/uL (4.36-5.78); RDW 13.1 % (11.8-14.1); RDW-SD 40.6 fL; WBC 9.32 10^3/uL (4.4-10.8)
[2022-12-12 15:31] LABS: Potassium 4.3 mmol/L (3.5-5.1)
== END 2022-12-12 03:57 | disposition home or self-care (01) ==
PROVIDERS: PCP Family Medicine; Visit Provider Family Medicine
DX: I10 Essential (primary) hypertension (principal); R53.83 Other fatigue
CPT/HCPCS: 36415; 85027; 84132

== ENCOUNTER 2023-03-28 04:48 | Outpatient (CLI) | payer MEDICARE, MEDICAID, SELFPAY ==
[2023-03-28 14:19] LABS: Calculated LDL 92 mg/dL (<100); Cholesterol 150 mg/dL (<200); HDL Cholesterol 40 mg/dL (40-60); Triglyceride 90 mg/dL (<150)
[2023-03-28 14:38] LABS: Vitamin D 25 Total 23.9 ng/mL (30-100)
== END 2023-03-28 04:49 | disposition home or self-care (01) ==
LOC: LBO 04:48
PROVIDERS: PCP Family Medicine; Visit Provider Family Medicine
DX: E78.5 Hyperlipidemia, unspecified (principal); E55.9 Vitamin D deficiency, unspecified
CPT/HCPCS: 36415; 80061; 82306

== ENCOUNTER 2023-12-20 09:52 | Outpatient (CLI) | payer MEDICARE, MEDICAID, SELFPAY ==
[2023-12-20 12:52] LABS: ALT 122 U/L (16-63); AST 68 U/L (15-37); Albumin 4.1 g/dL (3.4-5.0); Alkaline Phosphatase 82 U/L (46-116); Bilirubin, Total 0.58 mg/dL (0.2-1.0); Calculated LDL 146 mg/dL (<100); Cholesterol 237 mg/dL (<200); HDL Cholesterol 54 mg/dL (40-60); Total Protein 8.3 g/dL (6.4-8.2); Triglyceride 188 mg/dL (<150)
[2023-12-20 13:20] LABS: Bilirubin, Direct 0.1 mg/dL (0.0-0.2)
== END 2023-12-20 09:53 | disposition home or self-care (01) ==
LOC: LOS 09:53
PROVIDERS: PCP Family Medicine; Referring Provider Family Medicine; Visit Provider Family Medicine
DX: E78.5 Hyperlipidemia, unspecified (principal); G72.89 Other specified myopathies; M54.31 Sciatica, right side; F11.20 Opioid dependence, uncomplicated; Z23 Encounter for immunization; G35 Multiple sclerosis
CPT/HCPCS: 36415; 80061; 80076

== ENCOUNTER 2023-12-27 01:42 | Outpatient (CLI) | payer MEDICARE, MEDICAID, SELFPAY ==
--- NOTE | 2023-12-27 07:30 | DI.MRI_ITS ---
Exam(s) MR LUMBAR SPINE WO EXAM: MR LUMBAR SPINE WO CLINICAL HISTORY: worsening rt leg pain, s/p test injection,SCIATICA RT SIDE,M54.31. TECHNIQUE: Multiplanar multisequence MRI of the Lumbar spine was performed. COMPARISON: MR MRI - LUMBAR SPINE WO CONTRAST from 07/04/2017 FINDINGS: Bones: The last intervertebral disc space is designated the L5/S1 level for the numbering purpose of this examination. The vertebral body heights are well maintained. Alignment is satisfactory. There is disc desiccation at L5-S1. Cord: The conus tip ends at the T12 level. It is of normal size and signal intensity. T12-L1: No disc herniations or bulges are present. No central spinal canal or neural foraminal stenos is. L1-2: No disc herniations or bulges are present. No central spinal canal or neural foraminal stenosis . L2-3: No disc herniations or bulges are present. No central spinal canal or neural foraminal stenosis . L3-4: No disc herniations or bulges are present. No central spinal canal or neural foraminal stenosis . L4-5: No disc herniations or bulges are present. No central spinal canal or neural foraminal stenosis .There are mild degenerative changes of the facets at this level. L5-S1: There is again seen a disc herniation at L5-S1 eccentric to the right. It does extend part wa y into the right neural foramen. There is a mild impression on the right S1 nerve root. No signific ant central spinal canal stenosis is seen. There is mild right neural foraminal narrowing. No signi ficant left neural foraminal stenosis. This is unchanged compared to the prior examination. Soft tissues: The visualized SI joints and sacrum are well maintained. The paraspinal soft tissues ar e unremarkable. IMPRESSION: There is again seen an eccentric disc herniation at L5-S1 causing mild compression of the right S1 ne rve root and mild right neural foraminal stenosis. This appears similar compared to the prior examin ation from 2018. DATA REPOSITORY:
== END 2023-12-27 02:02 ==
LOC: DI 01:43
PROVIDERS: PCP Family Medicine; Visit Provider Family Medicine
DX: M51.26 Other intervertebral disc displacement, lumbar region (principal); M54.31 Sciatica, right side
CPT/HCPCS: 72148

== ENCOUNTER 2024-01-09 02:59 | Outpatient (CLI) | payer MEDICARE, MEDICAID, SELFPAY ==
[2024-01-09 13:15] LABS: ALT 28 U/L (16-63); AST 23 U/L (15-37); Albumin 3.6 g/dL (3.4-5.0); Alkaline Phosphatase 80 U/L (46-116); Bilirubin, Direct 0.1 mg/dL (0.0-0.2); Bilirubin, Total 0.44 mg/dL (0.2-1.0); Total Protein 7.2 g/dL (6.4-8.2)
== END 2024-01-09 03:00 | disposition home or self-care (01) ==
PROVIDERS: PCP Family Medicine; Visit Provider Family Medicine
DX: G72.89 Other specified myopathies (principal)
CPT/HCPCS: 36415; 80076

== ENCOUNTER 2024-01-15 19:41 | Emergency (ER) | payer MEDICARE, MEDICAID, SELFPAY ==
[2024-01-15 19:46] VITALS: BP 166/99; PULSE 82; RESP 15; TEMP 36.7; O2SAT 92
[2024-01-15 19:48] VITALS: BP 166/99; PULSE 82; RESP 15; TEMP 36.7; O2SAT 92
--- NOTE | 2024-01-15 19:53 | ED.GENADUL_ITS ---
Discharge Plan Disposition Patient Disposition: Home Condition: Stable Discharge Details Clinical Impression: MOUNA su, broken Primary Care Provider: Lamont Owusu ED Provider: Octavio Teague Home Meds and New Rx's Prescriptions: Continued Ocrevus 30 mg/mL solution 600 mg IV [id number] baclofen 10 mg tablet 10 mg PO TID albuterol sulfate [Ventolin HFA] 90 mcg/actuation HFA aerosol inhaler 2 puff inhalation QID PRN (Reason: shortness of breath or wheezing) Qty: 8.5 0RF (DME) Aerochamber Mini Spacer See Rx Instructions .ROUTE .MEDSUPPLY Qty: 1 0RF Rx Instructions: As directed naloxone [Narcan] 4 mg/actuation spray,non-aerosol 4 mg intranasal Q2M PRN (Reason: opioid overdose) Qty: 2 0RF Rx Instructions: spray 1 dose into ONE nostril; alternate nostrils w each dose until help arrives buspirone 15 mg tablet 15 mg PO BID Qty: 180 3RF losartan 25 mg tablet 25 mg PO DAILY Qty: 90 4RF anastrozole 1 mg tablet 1 mg PO .week Qty: 12 3RF gabapentin 400 mg capsule 400 mg PO TID Qty: 90 5RF diazepam 5 mg tablet 5 mg PO HS PRN (Reason: muscle spasm) Qty: 28 2RF cholecalciferol (vitamin D3) 25 mcg (1,000 unit) capsule 25 mcg PO DAILY Qty: 90 3RF hydrocodone bitartrate [Hysingla ER] 20 mg tablet,oral only,ext.rel.24 hr 20 mg PO DAILY MDD 1 tab Qty: 28 0RF tramadol 50 mg tablet 50 mg PO Q4H PRN MDD 3 Qty: 90 0RF methylphenidate HCl [Ritalin] 20 mg tablet 20 mg PO TID MDD 60mg Qty: 84 0RF polyethylene glycol 3350 [Miralax] 17 gram/dose powder 17 g PO DAILY Qty: 850 4RF hydrocodone bitartrate [Hysingla ER] 30 mg tablet,oral only,ext.rel.24 hr 30 mg PO DAILY MDD 1 tab Qty: 14 0RF Rx Instructions: temp docusate sodium 100 mg capsule 100 mg PO BID Patient Comments: TAKE ONE CAPSULE BY MOUTH TWICE A DAY FOR 10 DAYS Discharge Instructions Instructions: Luis Su Additional Instructions: You were seen in the emergency department for your MOUNA drain issue, I do not suspect that the left drain is fully clogged I think that clot will become dislodged the more you keep trying to strip the tubing. Please send a picture to your surgeon in the morning for any recommendations they may want you to open the bubble up and just pull the clot but I do not suspect any dangerous occlusion at this time, you are afebrile and have no pain. Do not hesitate to return to the emergency department for worsening pain and more evidence of full occlusion of the MOUNA drain Referrals: Lamont Owusu MD [Primary Care Provider] - Discharge Data Discharge Date/Time-TO BE ENTERED AT DEPARTURE: 01/15/24 20:32 HPI General Date/Time Provider Initiated Documentation: 01/15/24 19:43 . HPI Narrative: 38 year-old male presents to ED today by POV/ambulating with a chief complaint of concerned about MOUNA drains clogged, has bilateral MOUNA drains from lumpectomy and fat pad removal with onset 2 days ago, noticed it 30 minutes prior to arrival. Quality described as a scant little clot is at the end of the tubing where drains into the MOUNA drain bag, no radiation to fever, worsening pain at surgical sites, the right drain had appears to have the same amount of fluid of as the right one in the collection container. Severity is described as mild. Palliating factors include nothing specific- has been milking the tubing. P rovoking factors include nothing specific. Events leading up to the incident/Associated Symptoms: Patient had surgery at [facility]. Patient not anticoagulated. Related Data Home Medications ?Medication ?Instructions ?Recorded ?Confirmed baclofen 10 mg tablet 10 mg PO TID 04/12/18 01/15/24 albuterol sulfate 90 mcg/actuation 2 puff inhalation QID PRN 05/25/22 01/15/24 aerosol inhaler (Ventolin HFA) shortness of breath or wheezing #8.5 grams inhalational spacing device #1 ea 05/25/22 01/15/24 (Aerochamber Mini) gabapentin 400 mg capsule 400 mg PO TID #90 caps 07/01/23 01/15/24 naloxone 4 mg/actuation nasal 4 mg intranasal Q2M PRN opioid 09/15/23 01/15/24 spray (Narcan) overdose #2 ea anastrozole 1 mg tablet 1 mg PO .week #12 tabs 10/24/23 01/15/24 buspirone 15 mg tablet 15 mg PO BID #180 tabs 10/24/23 01/15/24 losartan 25 mg tablet 25 mg PO DAILY #90 tabs 10/24/23 01/15/24 diazepam 5 mg tablet 5 mg PO HS PRN muscle spasm #28 11/07/23 01/15/24 tab-caps cholecalciferol (vitamin D3) 25 25 mcg PO DAILY #90 caps 12/04/23 01/15/24 mcg (1,000 unit) capsule ocrelizumab 30 mg/mL intravenous 600 mg (20 mL) IV [id number] 12/20/23 01/15/24 solution (Ocrevus) Hysingla ER 20 mg tablet, crush 20 mg PO DAILY #28 tabs 12/25/23 01/15/24 resistant, extended release (hydrocodone bitartrate) methylphenidate HCl 20 mg tablet 20 mg PO TID #84 tabs 12/25/23 01/15/24 (Ritalin) polyethylene glycol 3350 17 17 g PO DAILY #850 grams 12/25/23 01/15/24 gram/dose oral powder (Miralax) tramadol 50 mg tablet 50 mg PO Q4H PRN #90 tab-caps 12/25/23 01/15/24 hydrocodone bitartrate 30 mg 30 mg PO DAILY #14 tabs 01/04/24 01/15/24 tablet,crush resist,extended rel. 24hr (Hysingla ER) docusate sodium 100 mg capsule 100 mg PO BID 01/15/24 01/15/24 Previous Rx's ?Medication ?Instructions ?Recorded albuterol sulfate 90 mcg/actuation 2 puff inhalation QID PRN 05/25/22 aerosol inhaler (Ventolin HFA) shortness of breath or wheezing #8.5 grams inhalational spacing device #1 ea 05/25/22 (Aerochamber Mini) gabapentin 400 mg capsule 400 mg PO TID #90 caps 07/01/23 naloxone 4 mg/actuation nasal 4 mg intranasal Q2M PRN opioid 09/15/23 spray (Narcan) overdose #2 ea anastrozole 1 mg tablet 1 mg PO .week #12 tabs 10/24/23 buspirone 15 mg tablet 15 mg PO BID #180 tabs 10/24/23 losartan 25 mg tablet 25 mg PO DAILY #90 tabs 10/24/23 diazepam 5 mg tablet 5 mg PO HS PRN muscle spasm #28 11/07/23 tab-caps cholecalciferol (vitamin D3) 25 25 mcg PO DAILY #90 caps 12/04/23 mcg (1,000 unit) capsule ocrelizumab 30 mg/mL intravenous 600 mg (20 mL) IV [id number] 12/20/23 solution (Ocrevus) Hysingla ER 20 mg tablet, crush 20 mg PO DAILY #28 tabs 12/25/23 resistant, extended release (hydrocodone bitartrate) methylphenidate HCl 20 mg tablet 20 mg PO TID #84 tabs 12/25/23 (Ritalin) polyethylene glycol 3350 17 17 g PO DAILY #850 grams 12/25/23 gram/dose oral powder (Miralax) tramadol 50 mg tablet 50 mg PO Q4H PRN #90 tab-caps 12/25/23 hydrocodone bitartrate 30 mg 30 mg PO DAILY #14 tabs 01/04/24 tablet,crush resist,extended rel. 24hr (Hysingla ER) Allergies Allergy/AdvReac Type Severity Reaction Status Date / Time No Known Allergies Allergy Verified 01/15/24 19:49 General Stated Complaint: GenMedical BRIDGETTE: 4 Review of Systems All systems reviewed & are unremarkable except as noted in HPI and below Exam Narrative Exam Narrative: GENERAL APPEARANCE: Well-nourished, non-toxic, awake and alert, atraumatic, no acute distress. SKIN: Warm, pink, dry, intact, without rashes/lesions/ulcerations. HEAD: Normocephalic, atraumatic, normal hair distribution for gender/age. EYES: Normal conjunctiva, no exudates on lids/lashes. ENT: Nares patent, no circumoral cyanosis, no facial swelling NECK: Supple, trachea midline, painless cervical ROM. LUNGS/CHEST: Non-labored respirations, normal A/P diameter, symmetrical expansion, no chest wall deformity HEART (CV/PV): No peripheral edema, no JVD. ABDOMEN: Soft, non-distended, no guarding, bilateral MOUNA drains in the lower quadrants, the left one has a clot in the collecting bag but I do not suspect a full occlusion as there is some fluid that is definitely draining after some tr oubleshooting, both collecting bags of the same of fluid and do not suspect emergent occlusion. No erythema at surgical sites. MSK: Normal ROM, no swelling/deformity to bilateral UEs or LEs, moving all extremities without weakness, no cyanosis, spine midline without tenderness, normal curvature. NEURO: Mental Status AAOx4 - alert to person, place, time, events No facial droop, no forehead involvement. Motor: No focal weakness - strength 5/5 in bilateral UEs and LEs, proximal and distal, symmetric. Sensory: sensation intact to light touch globally. Gait normal: patient ambulated without ataxia into ED room. PSYCH: euthymic, cooperative, pleasant, appropriate speech Course Vital Signs Vital signs: Vital Signs Temperature 36.7 C 01/15/24 19:46 Pulse 82 01/15/24 19:46 Respiratory Rate 15 01/15/24 19:46 Blood Pressure 166/99 H 01/15/24 19:46 Pulse Oximetry 92 01/15/24 19:46 Temperature 36.7 C 01/15/24 19:48 Pulse 82 01/15/24 19:48 Respiratory Rate 15 01/15/24 19:48 Respiratory Effort Normal 01/15/24 19:48 Blood Pressure 166/99 H 01/15/24 19:48 Blood Pressure Position Sitting 01/15/24 19:48 Pulse Oximetry 92 01/15/24 19:48 Oxygen Delivery Method Room Air 01/15/24 19:48 Oxygen Flow Rate 0 01/15/24 19:46 Medical Decision Making This dictation utilizes [id number] dictation software and may contain unedited grammatical errors. 38 year-old male presents to ED today by POV/ambulating with a chief complaint of concerned about MOUNA drains clogged, has bilateral MOUNA drains from lumpectomy and fat pad removal with onset 2 days ago, noticed it 30 minutes prior to arrival. Quality described as a scant little clot is at the end of the tubing where drains into the MOUNA drain bag, no radiation to fever, worsening pain at surgical sites, the right drain had appears to have the same amount of fluid of as the right one in the collection container. Severity is described as mild. Palliating factors include nothing specific- has been milking the tubing. Provoking factors include nothing specific. Events leading up to the incident/Associated Symptoms: Patient had surgery at [facility]. Patients' medical history: Fibromyalgia, chronic pain syndrome, peripheral edema. Family and social history: Noncontributory. Pertinent exam findings / vital signs include appears to have a small possibly partially obstructing tiny clot in the left MOUNA drain tubing at the distal end, but it appears after some troubleshooting that there is still active drainage, surgical sites without erythema, afebrile nontoxic. Differential / pathologies of concern include postsurgical complication, MOUNA drain problem. Diagnostic studies of: -None. Interventions of: -Counseled the patient that the collecting bags in the same fluid I do not suspect any emergent occlusion and I counseled him on following up with his surgeon tomorrow for any troubleshooting tips and he could happily return to the ER for other intervention. Findings not consistent with complete occlusion of MOUNA drain. Disposition of MOUNA drain, broken. Patient verbalized understanding of the plan and return to ED criteria and engaged in shared decision making. Medical Records Medical records reviewed: Yes I reviewed the patient's medical records. Quality:SDOH Health Related Social Needs: Health related social needs transportation insecurity( Z59.82), problem related to primary support group(Z63.9) Health related social needs details none PFSH All Active Problems (Updated 01/15/24 @ 20:15 by TITI Gibson) MOUNA drain, broken (Acute) Sciatica of right side (Acute) Chronic pain syndrome (Chronic) Acne (Acute) Low libido (Acute) Constipation (Acute) Acute pain associated with herpes zoster (Acute) Peripheral edema (Acute) Vitamin D deficiency (Acute) Thoracic disc herniation (Chronic 10/31/14) Raynaud's phenomenon without gangrene (Chronic 01/29/16) Family history of cardiovascular disease (Chronic) HYPERTENSION Back pain (Chronic 08/12/14) 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 Demyelinating lesions spinal cord and brain Fibromyalgia (11/03/15) Depressive disorder Attention deficit hyperactivity disorder, combined type (03/02/12) Lumbar radiculopathy Surgical History No significant past surgical history Family History Other Family history of cardiovascular disease Social History Smoking/Tobacco Use Status: Former Tobacco Use Smokeless tobacco user: other Quit status: has quit before Second Hand Exposure: Yes Smoking risk assessment performed?: Yes Alcohol Intake: never Drug use: Rarely Substance use type: marijuana Adopted: No Caregiver/Support person: No Foster care: No Household members: family Housing: other Details: [place] [facility] Number of Children: 0 number of grandchildren: 0 Communication Needs: None Education Level: high school Do you need help understanding health information?: Rarely 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 Pets and animals: Yes Pets and animals: cat(s) Sexually active: Yes Do you think of yourself as: straight/heterosexual Current gender identity: male What is your relationship status?: never How often do you talk on the phone with friends or family?: once per week How often do you attend confucianism or tenriism services?: decline to answer Do you belong to any clubs or organized social groups?: no Panel score (0-1 are the most socially isolated patients): 0 What type of physical activity do you participate in: walking and weight lifting Duration: 15-30 minutes/day Frequency: 3-4 times per week Erica/Sabianist: Taoism Special erica needs: No Agree to transfusion: Yes Seatbelt use: always Helmet use: Yes Helmet use: sometimes Drive intox or ride w/intox route driver salesperson: No Working smoke detector in home: Yes Carbon monox detector in home: Yes Firearms in home: Yes Do you feel safe at home: Yes Do you feel safe in your relationship?: Yes Victim of physical abuse: No Victim of emotional abuse: No Victim of sexual abuse: No Would you like helpful sources: No
--- OUTSIDE RECORDS SUMMARY | 2024-01-15 20:00 | XMS_ITS | Encounter Summary ---
Author Organization Formerly [facility] Address [facility] [address] [place] [address] Care Team Providers Care Optics Manufacturing Technician Name Role Phone Lamont Owusu MD Primary Care Provider [phone] Reason for Visit * Reason Comments Pre-op Exam Encounter Details Date Type Department Care Team (Late st Contact Info) Description 01/05/2024 2:00 PM EST Office Visit Urology at [facility] [address] [place] [phone] Desean Marinelli MD [facility] [place] [address] Acquired buried penis; Hypogonadism in male; Abnormal results of function studies of other organs and systems Social History Tobacco Use Types Packs/Day Years Used Date Smoking Tobacco: Former Cigarettes Q uit: 08/20/2018 Smokeless Tobacco: Never Comments:Stopped smoking abo ut two months (documented on 08/30/23) Alcohol Use Standard Drinks/Week Comments Not Currently 0 (1 standard drink = 0.6 oz pur e alcohol) Sex and Gender Information Value Date Recorded Sex Assigned at Male 06/03/2020 7:58 PM EDT Gender Identity Male 02/26/2022 11:00 AM EST Sexual Orientation Straight 06/03/2020 7: 58 PM EDT documented as of this encounter Last Filed Vital Signs Vital Sign Reading Time Taken Comments Blood Pressure 137/84 01/05/2024 2:00 PM EST Pulse 74 01/05/2024 2:00 PM EST Temperature 36.6 ??C (97.9 ??F) 01/05/2024 2:00 PM ES T Respiratory Rate 18 01/05/2024 2:00 PM EST Oxygen Saturation 97% 01/05/2024 2:00 PM EST Inhaled Oxygen Concentration - - Weight - - Height - - Body Mass Index - - documented in this encounter Progress Notes * Desean Marinelli MD - 01/05/2024 2:00 PM EST S: I saw Mr. Chacon in follow-up for his history of hypogonadism. He was previously seen in March for this issue. He has been on a regimen of injectable testosterone cypionate dosed 1 mL of 200mg/mL every 14 days. He is also on anastrozole 1 mg weekly. He denies any adverse effects from these medications. He does note improvement in his hypogonadal symptoms on these medications. His last testosterone measurement was 529 in November. His last CBC showed a hematocrit of 49.2 in November. Hislast PSA was 0.55 in November. His last estradiol was less than 9 in November. These labs were drawn 8 days after injection. I changed his prescription for anastrozole to 1 mg weekly from 1 mg daily atour last visit. He also has a history of erectile dysfunction. In September 2022 he underwent DDU. At that visit he was found to have mixed arteriogenic and venoocclusive erectile dysfunction. He also has Peyronie's disease and during that visit penile curvature was noted to be 20 degrees to the right and 20 degrees dorsal but he was unable to achieve erection to measure curvature accurately. At our last visit he reported that his ED remains sufficiently responsive to sildenafil at the 50 mg dose for sexual activity. In the past he noted a hinging with erection but from his description itwas unclear if this was indeed a hinge deformity and the photos he brought in were inconclusive (nor did they demonstrate significant penile curvature). He also reported pain in his penis at the point where he had bending occurs, and said this pain is worse prior to ejaculation. I advised him to take sildenafil at the 100 mg dose and document what he describes as a hinge deformity on video and bring this to our next visit. He said at our last visit that he forgot to video his penis but on furthe r discussion said he was confused about penile hinge deformity. He noted instead that he has a bendbut no hinging, and that his curvature does not prevent penetration. 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 He also notes significant bothersome scrotal webbing on the ventral surface of his penis. Past medical history is notable for MS, anxiety, hypertension, ADHD, back issues. He is also on aspirin for occasional pain. Past surgical history is denied. From a social perspective, he quit smoking in June 2022 and has 2-year history of smoking. Alcohol usage is denied. Street drug usage is denied. He is single. He is on disabilty. Family history is notable for prostate cancer in two maternal great uncles. He has no known allergies. His medications were reviewed and are consistent with those in the electronic medical record. O: On physical exam today he is in general a healthy, well-appearing man. He is awake, alert and oriented to person place and time. Mood and affect are normal. Gait: Normal and neurologically intact. No focal motor or sensory deficits are noted. Skin: Skin is warm and dry. There are no visible scars, rashes or lesions. HEENT: He is normocephalic and atraumatic. There is no scleral icterus. Pupils are equally round and reactive to light and accommodation. Extraocular motions intact. Trachea is midline. Lungs: No audible wheezing, normal respiratory effort. Chest rise is symmetric. Clear to auscultation bilaterally. Heart: Regular rate and rhythm, S1-S2 both present. Chest: There is no evidence of gynecomastia. Extremities: Extremities do not demonstrate clubbing, cyanosis or edema. His abdomen is soft, nontender, nondistended. There is no abdominal tenderness, guarding or rebound. No abdominal or inguinal hernias are seen. He has a large suprapubic fat pad obscuring his penis. His phallus is circumcised. There is a palpable penile plaque located at the dorsal midshaft. He has a patent, orthotopic urinary meatus. Both testes are scrotally located. The bilateral cords are palpable and within normal limits. There are no testicular masses or nodules bilaterally. His scrotum is without edema or erythema. Ventral penile skin and scrotal skin is webbed. A digital rectal exam was deferred. A: This is a 38-year-old gentleman with a history of symptomatic hypogonadism now successfully treated with testosterone replacement therapy. He also has erectile dysfunction well-controlled with sildenafil. He also has Peyronie's disease. He also has acquired buried penis. P: Regarding his symptomatic hypogonadism he is doing well on his current medications. There are noadverse symptoms or issues with his medication regimen at this point. I have advised him to continue on this medication and to contact me if he has any further issues. I have also ordered repeat CBC,T, PSA and estradiol levels for comparison and management. I will have him return to clinic to see me in six months for continued evaluation. Regarding his erectile dysfunction, this is well-controlled with sildenafil at this time. Regardinghis Peyronie's disease, this is stable and there is no hinge deformity and no interference with sexual activity. Regarding his history of acquired buried penis, he has elected to proceed with buried penis repair on January 10 at [facility]. I explained that the surgery will entail a suprapubic incision as well as ventral scrotoplasty incision. Informed consent was obtained today after extensive explanation of the risks and benefits. Preoperative labs are ordered and preoperative orders are placed.The perioperative course was explained in detail and preoperative and postoperative instructions were given and reviewed. All questions were answered to his satisfaction, and he expressed understanding. He will hold his aspirin for 7 days prior to surgery. Thank you very much for allowing me to participate in his care. Please do not hesitate to contact me if you have any questions. documented in this encounter Miscellaneous Notes * Addendum Note - Desean Marinelli MD - 01/05/2024 2:00 PM ESTAddended by: DESEAN MARINELLI on: 01/05/2024 02:32 PM Modules accepted: Orders documented in this encounter Plan of Treatment Upcoming Encounters Date Type Department Care Team (Late st Contact Info) Description 01/19/2024 1:00 PM EST Office Visit Urology at [facility] [address] [place] [phone] Desean Marinelli [place] [address] 01/22/2024 12:30 PM EST Office Visit Neurosurgery at [facility] [address] [place] [phone] [place] [address] Liudm[place] [address] 02/01/2024 12:00 PM EST Office [place] [phone] Georgette Monae PA [facility] [place] [address] 05/30/2024 10:30 AM EDT Appointment [place] [phone] Scheduled Orders Name Type Priority Associated Diagnoses Orde r Schedule EKG 12 Lead ECG Routine Acquired buried penis Expected: 01/05/2024, Expires: 07/06/2024 CBC (with Diff) Lab Routine Hypogonadism in male Expected: 07/04/2024, Expires: 01/04/2025 Testosterone, total Lab Routine Hypogonadism in male Expected: 07/04/2024, Expires: 01/03/2025 PSA (Ultrasensitive) Lab Routine Hypogonadism in male Abnormal results of function studies of other organs and systems Expected: 07/04/2024 (Approximate), Expires: 01/04/2025 Estradiol Lab Routine Hypogonadism in male Expected: 07/04/2024, Expires: 01/03/2025 documented as of this encounter Goals Goal Patient Goal Type Associated Problems Recent Progress Patient-Stated? Author prevention of MS relapse Patient Facing Action Plan Dionicio Almeida, [facility] documented as of this encounter Procedures Procedure Name Priority Date/Time Associated Diagnosis Comments ECG SCAN 01/05/2024 12:00 AM EST documented in this encounter Results * Basic Metabolic Panel Non-fasting (01/05/2024 1:45 PM EST) Glucose 93 65 - 199 mg/dL 01/05/2024 9:17 PM [facility] Comment:Glucose Concentratio n >=200 mg/dL plus symptoms is consistent with Diabetes Mellitus. Blood Urea Nitrogen 14 10 - 20 mg/dL 01/05/2024 9:17 PM [facility] Creatinine 0.99 0.80 - 1.50 mg/dL 01/05/2024 9:17 PM [facility] Sodium 139 135 - 145 mMol/L 01/05/2024 9:17 PM [facility] Potassium 4.5 3.5 - 5.0 mMol/L 01/05/2024 9:17 PM [facility] Chloride 103 98 - 107 mMol/L 01/05/2024 9:17 PM [facility] Carbon Dioxide 29 22 - 31 mMol/L 01/05/2024 9:17 PM [facility] Anion Gap 7 5 - 15 mMol/L 01/05/2024 9:17 PM [facility] Calcium 9.5 8.5 - 10.5 mg/dL 01/05/2024 9:17 PM [facility] Est Glomerular Filtration Rate - Male 99 mL/min/1. 73 m?? 01/05/2024 9:17 PM [facility] Comment: This patient's estimated GFR was calculated using the 2020 CKD-EPI equation. The estimated GFR can vary from the measured GFR by up to 30% in the absence of rapidly changing kidney function. Assessment of the estimated GFR is not appropriate when creatinine concentrations are rapidly changing. For clinical situations in which a more precise estimate of GFR is necessary, consider alternative methods of GFR estimation such as a 24-hour urine creatinine clearance. Assignment of CKD stage 1 - 5 for patients with an eGFR near the transition point between stages may be based on clinical assessment of muscle mass and symptoms in addition to eGFR. Link: eGFR Calculator [employer] Fasting Status No 01/05/2024 9:17 PM [facility] Blood VENOUS BLOOD SPECIMEN / Unknown Venipuncture / Unknown 01/05/2024 1:45 PM EST 01/05/2024 1:45 PM EST Desean Marinelli MD CHEMISTRY ORDERABLES [facility] [place] [address] * (ABNORMAL) CBC (with Diff) (01/05/2024 1:45 PM EST) White Blood Cell 6.96 4.00 - 9.50 x10(3)/mc L 01/05/2024 1:56 PM [facility] Red Blood Cell 5.89(H) 4.58 - 5.54 x10(6)/mc L 01/05/2024 1:56 PM [facility] Hemoglobin 17.0(H) 13.7 - 16.5 g/dL 01/05/2024 1:56 PM [facility] Hematocrit 49.9(H) 40.5 - 48.5 % 01/05/2024 1:56 PM [facility] Mean Cell Volume 84.7 82.9 - 93.1 fL 01/05/2024 1:56 PM [facility] Mean Cell Hemoglobin 28.9 27.5 - 32.1 pg 01/05/2024 1:56 PM [facility] Mean Cell Hemoglobin Concentration 34.1 32.0 - 35.7 g/dL 01/05/2024 1:56 PM [facility] Platelet 234 145 - 357 x10(3)/mc L 01/05/2024 1:56 PM [facility] Mean Platelet Volume 10.4 7.6 - 12.9 fL 01/05/2024 1:56 PM [facility] RDW Standard Deviation 38.6 36.0 - 45.0 fL 01/05/2024 1:56 PM [facility] RDW coefficient of variation 12.4 11.4 - 13.8 % 01/05/2024 1:56 PM [facility] Neutrophil % 68.2 % 01/05/2024 1:56 PM [facility] Neutrophil Absolute (ANC) - Automated 4.74 1.70 - 6.10 x10(3)/mc L 01/05/2024 1:56 PM [facility] Lymph % 21.1 % 01/05/2024 1:56 PM [facility] Lymph Absolute 1.47 0.90 - 3.20 x10(3)/mc L 01/05/2024 1:56 PM [facility] Monocyte % 9.2 % 01/05/2024 1:56 PM [facility] Monocyte Absolute 0.64 0.30 - 0.90 x10(3)/mc L 01/05/2024 1:56 PM [facility] Eos % 1.1 % 01/05/2024 1:56 PM [facility] Eos Absolute 0.08 0.00 - 0.40 x10(3)/mc L 01/05/2024 1:56 PM [facility] Basophil % 0.4 % 01/05/2024 1:56 PM [facility] Baso Absolute <0.04 0.00 - 0.10 x10(3)/mc L 01/05/2024 1:56 PM [facility] Immature Gran % 0.0 % 1:56 PM [facility] Immature Gran Absolute <0.04 0.00 - 0.04 x10(3)/mc L 01/05/2024 1:56 PM [facility] Blood VENOUS BLOOD SPECIMEN / Unknown Venipuncture / Unknown 01/05/2024 1:45 PM EST 01/05/2024 1:45 PM EST Desean Marinelli MD HEMATOLOGY ORDERABLE S Performing Organization Address City/State/[facility] Co de Phone Number [facility] [address] [place] [address] * Scan Doc: ECG (01/05/2024 12:00 AM EST) Narrative 01/05/2024 12:00 AM EST Ordered by an unspecified provider. Scanning Provider MEDIA MGR SCAN EXT O RDR/RSLT documented in this encounter Visit Diagnoses Diagnosis Acquired buried penis Other specified disorder of penis Hypogonadism in male Abnormal results of function studies of other organs and systems documented in this encounter Care Teams Optics Manufacturing Technician Relationship Specialty Start Date End Date Lamont Owusu MD [address] [place] [address] PCP - General Family Medicine 02/10/21 documented as of this encounter
--- OUTSIDE RECORDS SUMMARY | 2024-01-15 20:00 | XMS_ITS | Encounter Summary ---
Author Organization [facility] [place] [address] Care Team Providers Care Electric Repair Supervisor Name Role Phone Lamont Owusu MD Primary Care Provider [phone] Encounter Details Date Type Department Care Team (Late st Contact Info) Description 01/15/2024 Telephone Urology at [facility] [address] [place] [phone] Michelle Scott Social History Tobacco Use Types Packs/Day Years [...] PM EDT documented as of this encounter Miscellaneous Notes * Telephone Encounter - Michelle Scott - 01/15/2024 1:11 PM EST Caller: Self Name of Caller: Erick Consent on File: yes Caller Wanting a Call Back: yes Ok to Leave a Message: yes Call Back Number: [phone] Reason for Call / Patient Message: Follow up Is this a post op patient? Yes yes When was the surgery? 01/11/2024 Brief Summary of Chief Complaint / Reason for Call: Patient wants to know if it is okay for him to inject his testocerone after his surgery on 01/10? Please advise patient question Thank you Last Appointment (Date & Provider): 01/11/2024, Dr. Coronado documented in this encounter Plan of Treatment Upcoming Encounters Date Type Department Care Team (Late st Contact Info) Description 01/19/2024 1:00 PM EST Office Visit Urology at [facility] [address] [place] [phone] Desean Coronado MD [facility] [place] [address] 01/22/2024 12:30 PM EST Office Visit Neurosurgery at [facility] [address] [place] [phone] Hema Escalante MD [address] [place] [place] [address] Liudmila Oates PA [address] [place] [address] 02/01/2024 12:00 PM EST Office [place] [phone] Georgette Monae PA [facility] [place] [address] 05/30/2024 10:30 AM EDT Appointment [place] [phone] documented as of this encounter Goals Goal Patient Goal Type Associated Problems Recent Progress Patient-Stated? Author prevention of MS relapse Patient Facing Action Plan Dionicio Almeida, [facility] documented as of this encounter Visit Diagnoses Not on filedocumented in this encounter Care Teams Electric Repair Supervisor Relationship Specialty Start Date End Date Lamont Owusu MD [address] [place] [address] [address] [place] [address] PCP - General Family Medicine 02/10/21 documented as of this encounter
--- OUTSIDE RECORDS SUMMARY | 2024-01-15 20:00 | XMS_ITS | Encounter Summary ---
Author Organization [facility] [place] [address] Care Team Providers Care Mounter Saxophones Name Role Phone Lamont Owusu MD Primary Care Provider [phone] Reason for Visit * Treatment/Therapy Plan Authorization (Routine) - Authorized Specialty Diagnoses / Procedures Referred By Contac t Referred To Contact Diagnoses Multiple sclerosis Procedures INFUSION THERAPY TC OCRELIZUMAB, 1MG, INJECTION Erick Sullivan III, MD [facility] [place] [address] [facility] Med Infusion [address] [place] [phone] Referral ID Status Reason Start Date Expiration Date V isits Requested Visits Authorized [id number] Authorized 09/13/2023 09/12/2024 99 99 Encounter Details Date Type Department Care Team (Latest Contact Info) Description 11/30/2023 10:53 AM EDT - 11/30/2023 11:59 PM EDT Hospital En[place] [phone] Multiple sclerosis Discharge Disposition: Home Social History Tobacco Use Types Packs/Day Years [...] Sign Reading Time Taken Comments Blood Pressure 134/82 11/30/2023 11:10 AM EDT Pulse 58 11/30/2023 11:10 AM EDT Temperature 36.4 ??C (97.5 ??F) 11/30/2023 11:10 AM E DT Respiratory Rate 17 11/30/2023 11:10 AM EDT Oxygen Saturation 99% 11/30/2023 11:10 AM EDT Inhaled Oxygen Concentration - - Weight 99.9 kg (220 lb 3.2 oz) 11/30/2023 11:10 AM EDT Height - - Body Mass Index 32.52 09/11/2023 8:08 AM EDT documented in this encounter Medications at Time of Discharge Medication Sig Dispensed Refills Start Date End Date oxyCODONE-acetaminop hen (Percocet) 5-325 mg tablet Take 1 tablet by mouth every 4 hours as needed. 10 tablet 01/11/2024 docusate sodium (Colace) 100 mg capsule Take 1 capsule by mouth 2 times daily for 10 days. 20 capsule 01/11/2024 01/21/2024 Hysingla ER 20 mg ER 24 hr tablet (CRUSH RESISTANT) Take 1 tablet by mouth Daily at Noon. 11/29/2023 baclofen (Lioresal) 10 mg tabletIndications:Mu scle spasms of both lower extremities Take 1 tablet by mouth 3 times daily for 180 days. 90 tablet 5 11/29/2023 05/27/2024 testosterone cypionate (DepoTESTOSTERONE Cypionate) (200mg/mL) injectionIndications :Hypogonadism in male Inject 1 mL into the muscle every 14 days. 6 mL 11/20/2023 syringe with needle, disposable, 3 mL 22 gauge x 1 Syringe Use 1 syringe weekly for IM testosterone injection 12 each 3 11/20/2023 naloxone (Narcan) 4 mg/actuation nasal spray Q2M 09/08/2020 BD SafetyGlide Needle 18 gauge x 1 1/2 Needle USE ONCE WEEKLY FOR TESTOSTERONE INJECTION 06/22/2023 anastrozole (Arimidex) 1 mg tablet Take 1 tablet by mouth once a week. 12 tablet 3 08/30/2023 Needle, Disp, 18 G 18 gauge x 1 1/2 Needle Use 1 syringe weekly for IM testosterone injection 100 each 3 06/22/2023 cholecalciferol, Vitamin D3, 25 mcg (1,000 unit) Capsule Take 1 capsule by mouth Daily at Noon. 03/29/2023 sildenafiL (Viagra) 100 mg tablet Take 1 tablet by mouth as needed. 30 tablet 5 10/06/2022 albuteroL 90 mcg/actuation HFA Aerosol Inhaler 4 times daily. 05/25/2022 busPIRone (Buspar) 15 mg tablet Take 7.5 mg by mouth 2 times daily. 09/21/2022 polyethylene glycoL (Miralax) 17 gram/dose Powder daily. 03/19/2022 losartan (Cozaar) 25 mg Tablet Take 25 mg by mouth nightly. 04/30/2020 gabapentin (Neurontin) 100 mg CapsuleIndications:M ultiple sclerosis PO. 2 tabs in AM, 2 tabs in the afternoon, and 4 tabs nightly. 240 capsule 5 04/30/2020 diazePAM (VALIUM) 5 mg Tablet Take 1 tablet by mouth nightly as needed for Muscle spasms. 14 tablet 04/07/2018 traMADol (ULTRAM) 50 mg Tablet Take 1 tablet by mouth every 4 hours as needed for Pain. 60 tablet 04/07/2018 b complex vitamins Capsule Take 1 capsule by mouth daily. methylphenidate (RITALIN) 20 mg Tablet Take 20 mg by mouth 3 times daily. 0 10/17/2014 aspirin 325 mg Tablet Take 325 mg by mouth every 6 hours as needed for Pain. 01/11/2024 documented as of this encounter Progress Notes * Sharee Martinez RN - 11/30/2023 12:32 PM EDT INFUSION THERAPY ADMINISTRATION NOTE DIAGNOSIS: 1. Multiple sclerosis REASON FOR VISIT: Ocrevus Infusion (induction dose #2) SUBJECTIVE: No complaints. States that the day after his first infusion he came down with the flu. Symptoms resolved after approximately 11 days. OBJECTIVE: Erick arrives today for his second induction dose of Ocrevus, previous dose received 11/15/2023. In setting of post infusion mild hypersensitivity (flushing) day of first infusion and manufacturerdocumented potential side effects, Dr. York notified of Erick's statement above to include hot/cold flashes, cough, body aches, reported sinus infection (not formally diagnosed, no antibiotics). Dr. York felt that this was most likely coincidence and not infusion related due to length of time between infusion and symptom onset. Ocrevus infusion proceeded as scheduled, Erick agreed to notify Dr. York if he develops any illness post infusion. No Known Allergies LAB DATA: Recent Results (from the past 24 hour(s)) CBC (with Diff) Result Value Ref Range White Blood Cell 6.38 4.00 - 9.50 x10(3)/mcL Red Blood Cell 5.68 (H) 4.58 - 5.54 x10(6)/mcL Hemoglobin 16.4 13.7 - 16.5 g/dL Hematocrit 49.2 (H) 40.5 - 48.5 % Mean Cell Volume 86.6 82.9 - 93.1 fL Mean Cell Hemoglobin 28.9 27.5 - 32.1 pg Mean Cell Hemoglobin Concentration 33.3 32.0 - 35.7 g/dL Platelet 241 145 - 357 x10(3)/mcL Mean Platelet Volume 10.7 7.6 - 12.9 fL RDW Standard Deviation 39.0 36.0 - 45.0 fL RDW coefficient of variation 12.6 11.4 - 13.8 % NRBC% auto 0.0 % NRBC Absolute <0.01 <0.01 x10(3)/mcL Neutrophil % 58.6 % Neutrophil Absolute (ANC) - Automated 3.74 1.70 - 6.10 x10(3)/mcL Lymph % 30.6 % Lymph Absolute 1.95 0.90 - 3.20 x10(3)/mcL Monocyte % 7.7 % Monocyte Absolute 0.49 0.30 - 0.90 x10(3)/mcL Eos % 1.9 % Eos Absolute 0.12 0.00 - 0.40 x10(3)/mcL Basophil % 0.6 % Baso Absolute 0.04 0.00 - 0.10 x10(3)/mcL Immature Gran % 0.6 % Immature Gran Absolute 0.04 0.00 - 0.04 x10(3)/mcL PSA (Ultrasensitive) Result Value Ref Range Prostate Specific Antigen (Ultrasensitive) 0.55 0.00-4.00 ng/mL ng/ml Estradiol Result Value Ref Range Estradiol 9 11 to 43 pg/mL pg/mL VITAL SIGNS Patient Vitals for the past 24 hrs: Temp Pulse Resp BP SpO2 11/30/23 1110 36.4 ??C (97.5 ??F) 58 17 134/82 99 % IF PAIN > 5, INTERVENTION AND EFFECTIVENESS: NA IV PLACEMENT: PIV 11/30/23 1135 24 gauge;3/4 in length cephalic vein (lateral side of arm), left (Active) ANTIEMETICS/PREMEDS: Acetaminophen 650mg PO @ given, see MAR Benadryl 50mg in 50 cc NS IV @ given over 15 min, see NANCI Solumedrol 100mg IVP @ given, see NANCI Pneumococcal vaccine and Hep B vaccine status: Current Immunizations Name Date INFLUENZA 12/01/2015 Patient identification and orders checked against actual dose given at bedside by Sharee Martinez RN TREATMENT: Ocrevus (ocrelizumab) 300 mg IV Administration times: See NANCI Patient infused with Ocrevus protocol without issue, beginning at 30 ml/hr and increasing by 30 ml/hr every 30 minutes. REACTIONS None. ASSESSMENT Tolerated treatment well. Patient remained for post infusion observation period. PLAN Return to clinic 05/30/2024 for first maintenance infusion dose (standard rate) documented in this encounter Plan of Treatment Upcoming Encounters Date Type Department Care Team (Late st Contact Info) Description 01/19/2024 1:00 PM EST Office Visit Urology at [facility] [address] [place] [phone] Desean Coronado MD [facility] [place] [address] 01/22/2024 12:30 PM EST Office Visit Neurosurgery at [facility] [place] [phone] Hema Escalante MD [facility] [place] [address] Liudmila Oates [place] [address] 02/01/2024 12:00 PM EST Office [place] [phone] Georgette Monae PA [facility] [place] [address] 05/30/2024 10:30 AM EDT [place]ment [place] [phone] documented as of this encounter Goals Goal Patient Goal Type Associated Problems Recent Progress Patient-Stated? Author prevention of MS relapse Patient Facing Action Plan Dionicio Almeida, [facility] documented as of this encounter Visit Diagnoses Diagnosis Multiple sclerosis documented in this encounter Administered Medications Inactive Administered Medications - up to 3 most recent administrations Medication Order MAR Action Action Date Dose Rate Site acetaminophen (Tylenol) tablet 650 mg 650 mg, Oral, ONCE, 1 dose, On Serina 11/30/23 at 1130, Routine Given 11/30/2023 11:34 AM EDT 650 mg diphenhydrAMINE (Benadryl) (50 mg/mL) injection 50 mg 50 mg, Intravenous, ONCE, 1 dose, On Serina 11/30/23 at 1130, May take IV if unable to take orally., Routine Given 11/30/2023 11:39 AM EDT 50 mg methylPREDNISolone sod succ (pf) (SOLU-Medrol) (125 mg/2 mL) injection 100 mg 100 mg, Intravenous, ONCE, 1 dose, On Serina 11/30/23 at 1200 Given 11/30/2023 11:37 AM EDT 100 mg ocrelizumab (Ocrevus) 300 mg in sodium chloride 0.9% 250 mL Initial infusions 300 mg, Intravenous, ONCE, 1 dose, On Serina 11/30/23 at 1200, Ocrevus 300 mg IV day 1, Ocrevus 300 mg IV day 15, then Ocrevus 600 mg IV every 6 months, Restricted Biologic: Ordering restricted to neurology attending. Please indicate appropriate provider. Dr. Erick Mac 11/30/2023 12:29 PM EDT 300 mg documented in this encounter Care Teams Mounter Saxophones Relationship Specialty Start Date End Date Lamont Owusu MD [address] [place] [address] PCP - General Family Medicine 02/10/21 documented as of this encounter
--- OUTSIDE RECORDS SUMMARY | 2024-01-15 20:00 | XMS_ITS | Encounter Summary ---
Author Organization [facility] Address [facility] [place] [address] Care Team Providers Care Iron Setter Name Role Phone Lamont Owusu MD Primary Care Provider [phone] Encounter Details Date Type Department Care Team (Late st Contact Info) Description 01/12/2024 Telephone Urology at [facility] [address] [place] [phone] Michelle Scott Social History Tobacco Use [...] encounter Miscellaneous Notes * Telephone Encounter - Ana Maria Barbour LPN - 01/12/2024 4:36 PM EST Returned patients call back in regards to his questions. Patient reports he is wondering if it is okay to go ahead and put Neosporin ointment on his incisions. Patient was informed per Dr. Coronado thatit is okay to do so. Patient reports he collected about 15 cc of drainage from MOUNA drains but reports the right side is putting out less than the left. Patient was informed that per Dr. Coronado this is not concerns and patient was reassured. Patient will call back with any questions or concerns. * Telephone Encounter - Michelle Scott - 01/12/2024 10:13 AM EST Caller: Self Name of Caller: Erick Consent on File: yes Caller Wanting a Call Back: yes Ok to Leave a Message: yes Call Back Number: [phone] Reason for Call / Patient Message: Follow up Is this a post op patient? Yes yes When was the surgery? 01/11/2024 Brief Summary of Chief Complaint / Reason for Call: Patient called to see if he can put antibiotic ointment on incisions when changing his gauze pads? The ointment is equate bacitracin. He wanted Dr. Coronado to know that the pain is manageable and seems to be feeling okay. Please call patient back with instruction on changing dressings. Thank you, Michelle Last Appointment (Date & Provider): 01/11/2024, Dr. Coronado documented in this encounter Plan of Treatment Upcoming Encounters Date Type Department Care Team (Late st Contact Info) Description 01/19/2024 1:00 PM EST Office Visit Urology at [facility] [address] [place] [phone] Desean Coronado MD [facility] [place] [place] [address] 01/22/2024 12:30 PM EST Office Visit Neurosurgery at [facility] [address] [place] [phone] Hema Escalante MD [address] [facility] [place] [address] Liudmila Oates PA [address] [facility] [place] [address] 02/01/2024 12:00 PM EST Office [place] [phone] Georgette Monae PA [facility] [place] [address] 05/30/2024 10:30 AM EDT Appointment [place] [phone] documented as of this encounter Goals Goal Patient Goal Type Associated Problems Recent Progress Patient-Stated? Author prevention of MS relapse Patient Facing Action Plan Dionicio Almeida, [facility] documented as of this encounter Visit Diagnoses Not on filedocumented in this encounter Care Teams Iron Setter Relationship Specialty Start Date End Date Lamont Owusu MD [address] [place] [address] PCP - General Family Medicine 02/10/21 documented as of this encounter
--- OUTSIDE RECORDS SUMMARY | 2024-01-15 20:00 | XMS_ITS | Encounter Summary ---
Author Organization [facility] Melinda [place]ив[address] [place] [address] Care Team Providers Care Riding Coach Name Role Phone Lamont Owusu MD Primary Care Provider [phone] [phone] Reason for Visit * Auth/Cert (Routine) Specialty Diagnoses / Procedures Referred By Contac t Referred To Contact Diagnoses Acquired buried penis Acquired buried penis Procedures PRO ADJ TISS TRANSFER HEAD, FAC, HAND 10.1-30 ADJ.TISSUE TRANSFER, REARRANGEMENT, 10.1 TO 30 SQ.CM, GENITALIA (WRVU 10.83) Desean Coronado MD [facility] [place] [address] [facility] Referral ID Status Reason Start Date Expiration Date Visits Re quested Visits Authorized [id number] 1 1 Encounter Details Date Type Department Care Team (Late st Contact Info) Description 01/11/2024 8:30 AM EST - 01/11/2024 11:00 AM EST Surgery Main OR at [address] [address] Desean Coronado MD [facility] [place] [address] ADJ.TISSUE TRANSFER, REARRANGEMENT, 10.1 TO 30 SQ.CM, GENITALIA (WRVU 10.83) Social History Tobacco Use Types Packs/Day Years Used Date Smoking Tobacco: Former Cigarettes Q uit: 08/20/2018 Smokeless Tobacco: Never Comments:Stopped smoking abo ut two months (documented on 7/10/24) Alcohol Use Standard Drinks/Week Comments Not Currently [...] Sign Reading Time Taken Comments Blood Pressure 138/94 01/11/2024 11:00 AM EST Pulse 80 01/11/2024 11:00 AM EST Temperature 36.2 ??C (97.2 ??F) 01/11/2024 10:[address] Respiratory Rate 14 01/11/2024 11:00 AM EST Oxygen Saturation 94% 01/11/2024 11:00 AM EST Inhaled Oxygen Concentration - - Weight 103.4 kg (228 lb) 01/11/2024 7:39 AM EST Height 175.3 cm (5' 9.02) 01/11/2024 7:39 AM ES T Body Mass Index 33.65 01/11/2024 7:39 AM EST documented in this encounter Discharge Instructions * Patient Instructions* Desean Coronado MD - 01/11/2024 10:30 AM EST You will have a postoperative follow up visit in about one week at [facility]. You will becontacted with the exact date and time. Hold your aspirin until after your drain removal visit. Please follow the below discharge instructions and contact my office if you have any questions. - If you were seen in clinic at [facility] [place] call [phone]. - If you were seen in clinic at in [place] call [phone]. - If you were seen in clinic at [facility] in [place] call [phone]. - If you were seen in clinic at [facility] call [phone]. POSTOPERATIVE INSTRUCTIONS BURIED PENIS SURGERY Wound Care / General Information: Keep the operative areas clean and dry. Remove the entire dressing 24 hours following surgery. Wear athletic supporter all the time until follow-up. Apply ice to your scrotum regularly after surgery to help reduce swelling. Apply the ice for 20 minutes on, [address] the ice directly on the skin. Slight bleeding may occur after dressing is removed, if worse bleeding occurs see instructions below. You can shower after two (2) days. Rinse gently (do not scrub) and pat dry. You can take a tub bath or swim in 10 days. Your reese will be removed in about 2 weeks. Follow the instructions you were given by the nursing staff for emptying your drain. Empty your drain at least twice daily and record the amounts. Special Instructions: 1. No exercise/jogging, biking, weight lifting for two (2) weeks. 2. No intercourse for at least four (4) weeks. It may be more comfortable to wait until sutures aredissolved. 3. If you had a circumcision, the head of the penis can become dry and scaly after a few weeks. This is normal. Signs and Symptoms to Report: 1. Observe the operative area for signs of excessive bleeding - slow general oozing that saturates the dressing complete or jaon bright red bleeding. In either case, apply pressure to the area, elevate if possible and contact your physician at once. 2. Observe the operative areas for signs of infection: Increased pain, redness, swelling, foul odor, Increasing wound drainage (clear or cloudy), chills, shaking and/or fever elevations greater than 101??, nausea and vomiting 3. If you experience any of the above signs and symptoms or develop any other unusual symptoms postoperatively following discharge from the hospital, please contact your physician or go to the nearest emergency room. Medications: If your physician ordered pain medication please take it as directed. Do not drive a motor vehicle, operate machinery or power tools while taking this medication. * Attachments The following attachments cannot be sent through Care Everywhere. * Surgical Drain Care (Maldivian) * Caring for a Drain After Surgery: Video (Maldivian) documented in this encounter Medications at Time [...] by mouth 3 times daily. 0 10/17/2014 documented as of this encounter Progress Notes * Viky Curry RN - 01/11/2024 11:47 AM EST Patient meets criteria for discharge from [facility] per protocol. AVS reviewed, including medications, activity, wound care and reportable s/s and follow up. all questions answered pt verbalized understanding. MOUNA drain education provided verbally and written This demonstrated how to empty MOUNA drain with pt and pt's mother. Pt verbalized understanding. Pt pain assessed and reports tolerable pain prior to d/c. PIV removed prior to discharge. Pt gathered own belongings. Pt brought off unit via wheelchair accompanied by staff and safe ride home. * Viky Curry RN - 01/11/2024 11:04 AM EST Pt A&Ox4, pt eating and drinking without difficulty. Pt stating 4/10 pain, will medicate pt perMAR. Pt left MOUNA drain leaking at insertion site. Dr. Coronado team to bedside to assess, MOUNA drain in place,new dressing applied. respirations equal and unlabored skin PWD, NAD noted documented in this encounter H&P Notes * Desean Coronado MD - 01/11/2024 8:07 AM EST The patient's history and physical exam have been reviewed and completed. There has been no interval change from that of the pre-operative history and physical exam done within the last 30 days. Source Note - Desean Coronado MD - 01/05/2024 2:00 PM EST S: I saw Mr. Degreenia in follow-up for his history of hypogonadism. [...] forgot to video his penis but on r discussion said he was confused about [...] buried penis repair on January 10 at [facility]. I explained that the surgery will [...] documented in this encounter Miscellaneous Notes * Brief Op Note - Desean Coronado MD - 01/11/2024 10:21 AM EST [facility] Brief Operative Note [address] Patient Name: Erick Chacon : [id number] MR#: [id number] Case Date: 01/11/2024 Case Scheduled Time: 0830 Surgeon: Surgeons and Role: * Desean Coronado MD - Primary * Shelby Bruno MD - Resident - Assisting Preoperative diagnosis: Acquired buried penis Postoperative diagnosis: Acquired buried penis Procedure(s) (LRB): ADJ.TISSUE TRANSFER, REARRANGEMENT, 10.1 TO 30 SQ.CM, GENITALIA (WRVU 10.83) (N/A) Anesthesia: General Findings: See dictation Complications: None Intake: 500 mL Output: Estimated Blood Loss: 50 mL Urine Output:: (no urine output recorded) Other Output: (no other output recorded) Drains: Bilateral MOUNA drains Specimens removed during surgery: ID Type Source Tests Collected by Time Destination 1 : Suprapubic fat pad Tissue Abdominal Fat Pad SURGICAL PATHOLOGY Desean Coronado MD 01/11/2024 0903 Disposition: awakened from anesthesia, extubated and taken to the recovery room in a stable condition, having suffered no apparent untoward event. Condition: doing well without problems (Please see the Surgical Encounter Summary for any Implant and Specimen details pertinent to this patient.) * Op Note - Desean Coronado MD - 01/11/2024 8:52 AM EST [facility] Operative Note [address] Patient Name: Erick Chacon : [id number] MR#: [id number] Case Date: 01/11/2024 Case Scheduled Time: 829 SURGEON: Desean Coronado MD MATHEMATICS EDUCATION PROFESSOR: Shelby Bruno MD ANESTHESIOLOGIST: Rajendra Osorio CRNA ANESTHESIA: General. PREOPERATIVE DIAGNOSIS: Buried penis POSTOPERATIVE DIAGNOSIS: Buried penis TITLE OF OPERATION: Buried penis repair IV FLUIDS: 500 mL. URINE OUTPUT: Not recorded. ESTIMATED BLOOD LOSS: 50 mL. SPECIMENS: Suprapubic fat pad. DRAINS: Bilateral MOUNA drains. COUNT: All counts were correct at the end of the case. COMPLICATIONS: None. CONDITION: Good at the end of the case. INDICATIONS: This is a very pleasant 38-year-old obese gentleman with an obscured penis resulting in hygiene issues and inadequate externalization of his penis. He presents today for buried penis repair. The patient was informed of his condition one more time, the risks and benefits were carefully explained and all his questions answered. As such, he elected to undergo an elective buried penis repair today. PROCEDURE: The patient was correctly identified in the preoperative holding area. His surgical sitewas marked with a marking pen in the standing position in the preop holding area. Informed consent was confirmed after extensive explanation of the risks and benefits of the procedure, he was broughtback to the operating room and placed on the table in the supine position. He was given intravenousAncef as preoperative antibiotic prophylaxis. A universal time-out was performed. Venodyne boots were placed. All team members were identified. Following this, he was then given general anesthesia bythe anesthesia team and prepped and draped in the standard sterile fashion. During anesthesia induction patient developed an erection and assessment of this erection indicatedthat ventral scrotoplasty to treat scrotal webbing was unlikely to be necessary as no penoscrotal webbing or tethering was seen. The original marking site was examined thoroughly and deemed appropriate for excision. Bovie cautery was used to excise a substantial ellipse of suprapubic fat tissue (approximately 15 cm long by 5 cm wide by 3 cm deep). This was the total size of the primary and secondary defect. Meticulous hemostasis was obtained using Bovie electrocautery. The suprapubic fat pad was excised and removed from the field and sent to pathology. Deeper fat tissue was excised using Bovie electrocautery. We then examined the estimated wound closure following excision and deemed it cosmetically appropriate. We also noted, however, that we would need to raise upper and lower flaps in order to reapproximate this tissue appropriately. Thus the upper and lower portions of the wound, as well as the corners of the wound, were carefully undermined using Bovie electrocautery to create vascularized skin flaps that could be gently pulled across longitudinally to approximate this gap. Once the flaps were created we pulled them across the gap manually and they were noted to fit and adequately cover the defect. Bilateral MOUNA drains were placed across the wound bed and the tubings were run through small incisions lateral to the main incision and connected to suction bulbs. The drains were secured in place with 3-0 nylon sutures at the skin level. We subsequently used 0 PDS in an interrupted fashion to closedeep tissue in the excision site. Another layer of 0 Vicryl sutures were placed to close the deep tissue further. The superficial skin flaps were connected using 2-0 Vicryl in a running fashion. The wound was closed with reese. The wound was extended at the corners using Metzenbaum scissors to provide adequatecosmesis for about 2 cm in each direction and further reese were added at these locations. After further assessment of penile externalization following fat pad excision it was confirmed thatventral scrotoplasty was not necessary.He then received 30 mL of 0.5% bupivacaine infiltrated around the wound area for pain control. The wound was cleaned and dried. Bacitracin and an island dressing were applied. An athletic supporter was placed and the scrotum was padded with two unrolled Kerlix and two packs of 4x4 gauze. He was then reversed from anesthesia, transferred to the stretcher, and brought back to the PACU in stable condition. ATTESTATION: I performed this case and I agree with the above dictation. Desean Coronado MD 01/11/2024 documented in this encounter Plan of Treatment Upcoming Encounters Date Type Department Care Team (Late st Contact Info) Description 01/19/2024 1:00 PM EST Office Visit Urology at [address] [phone] Desean Coronado MD [facility] [place] [address] 01/22/2024 12:30 PM EST Office Visit Neurosurgery at [facility] [address] [place] [address] Hema Escalante MD [address] [facility] [place] [address] Liudmila Oates PA [address] [facility] [place] [address] 02/01/2024 12:00 PM EST [place] [phone] Georgette Monae PA [facility] [place] [address] 05/30/2024 10:30 AM EDT [place] [phone] Pending Results Name Type Priority Associated Diagnoses Date /Time Surgical Pathology Pathology/Cytolo gy Routine Acquired buried penis 01/11/2024 9:03 AM EST Scheduled Orders Name Type Priority Associated Diagnoses Orde r Schedule Surgical Pathology Pathology/Cytol ogy Routine Acquired buried penis Release Upon Ordering for 1 Occurrences starting 01/11/2024, 1 completed documented as of this encounter Goals Goal Patient Goal Type Associated Problems Recent Progress Patient-Stated? Author prevention of MS relapse Patient Facing Action Plan Dionicio Almeida, [facility] documented as of this encounter Procedures Procedure Name Priority Date/Time Associated Diagnosis Comments Adj Tiss Transfer Head, Fac, Hand 10.1-30 (53576) 01/11/2024 8:26 AM EST Acquired buried penis documented in this encounter Visit Diagnoses Diagnosis Acquired buried penis Other specified disorder of penis Acquired buried penis Other specified disorder of penis documented in this encounter Administered Medications Inactive Administered Medications - up to 3 most recent administrations Medication Order MAR Action Action Date Dose Rate Site acetaminophen (Tylenol) tablet 975 mg 975 mg, Oral, ONCE, 1 dose, On Serina 01/11/24 at 0745, - Maximum dose of acetaminophen is 4,000 mg from all sources in 24 hours. - Unless otherwise specified, when ordered PRN for pain, acetaminophen should be given first if other PRN pain medications are ordered., Day of Surgery (Day of Procedure), Routine Given 01/11/2024 7:41 AM EST 975 mg BUPivacaine (pf) (Marcaine) (5 mg/mL) 0.5% injection PRN, Starting on Serina 01/11/24 at 1001, Until Serina 01/11/24 at 1149, Intra-Operative (Intra-Procedure), Routine Given 01/11/2024 10:01 AM EST 30 mLs celecoxib (CeleBREX) capsule 200 mg 200 mg, Oral, ONCE, 1 dose, On Serina 01/11/24 at 0745, Day of Surgery (Day of Procedure), Routine Given 01/11/2024 7:41 AM EST 200 mg gabapentin (Neurontin) capsule 600 mg 600 mg, Oral, ONCE, 1 dose, On Serina 01/11/24 at 0745, Day of Surgery (Day of Procedure), Routine Given 01/11/2024 7:41 AM EST 600 mg oxyCODONE (Roxicodone) tablet 5 mg 5 mg, Oral, ONCE, 1 dose, On Serina 01/11/24 at 1115, PACU Recovery, Routine Given 01/11/2024 11:12 AM EST 5 mg sodium chloride 0.9 % (flush) (BD PosiFlush Normal Saline 0.9) flush 5-20 mL 5-20 mL, Intravenous, EVERY 1 MIN PRN, Starting on Serina 01/11/24 at 0812, Until Serina 01/11/24 at 1149, flush, Flush pertains to all indwelling lines. Flush per protocol found in the job aid using the link provided on this medication record., Day of Surgery (Day of Procedure), Routine Given 01/11/2024 8:02 AM EST 10 mLs documented in this encounter Active and Recently Administered Medications Times are shown in EST. Scheduled Medication Order 01/09/2024 01/10/2024 01/11/2024 acetaminophen (Tylenol) tablet 975 mg (COMPLETED) 975 mg, Oral, ONCE, 1 dose, On Serina 01/11/24 at 0745, - Maximum dose of acetaminophen is 4,000 mg from all sources in 24 hours. - Unless otherwise specified, when ordered PRN for pain, acetaminophen should be given first if other PRN pain medications are ordered., Day of Surgery (Day of Procedure), Routine 07 (Given - Provid er: Ana Maria Mcdaniel RN) ceFAZolin (Ancef) 2 g vial attach to sodium chloride 0.9% 100 mL Mini-Bag Plus (COMPLETED) 2 g, Intravenous, ONCE, 1 dose, On Serina 01/11/24 at 0745, Administer over 30 Minutes, Redose every 3 hours if CrCl is greater than 20. Redose every 8 hours if CrCl is less than 20., Day of Surgery (Day of Procedure), Indication for (Active or Suspected): Prophylaxis 0838 (New Bag - Prov ider: Rajendra Osorio, JOSE) celecoxib (CeleBREX) capsule 200 mg (COMPLETED) 200 mg, Oral, ONCE, 1 dose, On Serina 01/11/24 at 0745, Day of Surgery (Day of Procedure), Routine 07 (Given - Provid er: Ana Maria Mcdaniel RN) gabapentin (Neurontin) capsule 600 mg (COMPLETED) 600 mg, Oral, ONCE, 1 dose, On Serina 01/11/24 at 0745, Day of Surgery (Day of Procedure), Routine 07 (Given - Provid er: Ana Maria Mcdaniel RN) oxyCODONE (Roxicodone) tablet 5 mg (COMPLETED) 5 mg, Oral, ONCE, 1 dose, On Serina 01/11/24 at 1115, PACU Recovery, Routine 1112 (Given - Provid er: Viky Curry RN) Continuous Medication Order 01/09/2024 01/10/2024 01/11/2024 lactated ringers infusion (CANCELED) 1,000 mL, Intravenous, CONTINUOUS, Starting on Serina 01/11/24 at 0830, Until Serina 01/11/24 at 1149, Day of Surgery (Day of Procedure) 0827 (New Bag - Prov ider: Rajendra Osorio CRNA) PRN Medication Order 01/09/2024 01/10/2024 01/11/2024 BUPivacaine (pf) (Marcaine) (5 mg/mL) 0.5% injection (CANCELED) PRN, Starting on Serina 01/11/24 at 1001, Until Serina 01/11/24 at 1149, Intra-Operative (Intra-Procedure), Routine 1001 (Given - Provid er: Desean Coronado MD) sodium chloride 0.9 % (flush) (BD PosiFlush Normal Saline 0.9) flush 5-20 mL (CANCELED) 5-20 mL, Intravenous, EVERY 1 MIN PRN, Starting on Serina 01/11/24 at 0812, Until Serina 01/11/24 at 1149, flush, Flush pertains to all indwelling lines. Flush per protocol found in the job aid using the link provided on this medication record., Day of Surgery (Day of Procedure), Routine 0802 (Given - Provid er: Kathrine Coronado RN) documented in this encounter Care Teams Riding Coach Relationship Specialty Start Date End Date Lamont Owusu MD [address] [place] [address] PCP - General Family Medicine 02/10/21 documented as of this encounter
--- OUTSIDE RECORDS SUMMARY | 2024-01-15 20:00 | XMS_ITS | Encounter Summary ---
Author Organization [facility] Address [facility] [place] [place] [address] Care Team Providers Care Dredge Lever Operator Name Role Phone Lamont Owusu MD Primary Care Provider [phone] Reason for Visit * Reason Onset Date Comments Medication Refill 11/29/2023 Encounter Details Date Type Department Care Team (Late st Contact Info) Description 11/29/2023 [place] [phone] Erick York III, MD [facility] [place] [address] Muscle spasms of both lower extremities Social History Tobacco Use Types Packs/Day Years [...] encounter Miscellaneous Notes * Telephone Encounter - Cassidy Wilkinson RMA - 11/29/2023 9:13 AM EDT Prescription Renewal Request Name: Erick Chacon : 1985 Prescription(s) Requested: Requested Prescriptions Pending Prescriptions Disp Refills baclofen (Lioresal) 10 mg tablet 90 tablet 5 Sig: Take 1 tablet by mouth 3 times daily for 180 days. Date of Encounter last in This Dept (If need an appointment send to secretaries to schedule): 09/11/2023 with Erick York III, MD Next Encounter in This Dept: Visit date not found. Visit requested. 09/11/2023 Visit note: Plan: plan to start Ocrevus in the near future Continue on baclofen 10 mg 3 times daily Follow-Up: 2 months with TITI Lundy Date of Last Refill (for each medication): baclofen (Lioresal) 10 mg tablet () Authorized By: Erick York III, MD Take 1 tablet by mouth 3 times daily for 180 days. Dispense:90 tablet, Refills: 5 ordered 05/25/2023 11/21/2023 Status of request: Pended No Known Allergies SABA BERMUDEZ 11/29/23 9:16 AM documented in this encounter Plan of Treatment Upcoming Encounters Date Type Department Care Team (Late st Contact Info) Description 01/19/2024 1:00 PM EST Office Visit Urology at [facility] [address] [place] [phone] Desean Coronado MD [facility] [place] [address] 01/22/2024 12:30 PM EST Office Visit Neurosurgery at [facility] [address] [place] [address] Hema Escalante MD [facility] [place] [address] Liudmila Oates PA [facility] [place] [address] 02/01/2024 12:00 PM EST [place] [address] Georgette Monae PA [facility] [place] [address] 05/30/2024 10:30 AM EDT [place] [phone] documented as of this encounter Goals Goal Patient Goal Type Associated Problems Recent Progress Patient-Stated? Author prevention of MS relapse Patient Facing Action Plan Dionicio Almeida, [facility] documented as of this encounter Visit Diagnoses Diagnosis Muscle spasms of both lower extremities documented in this encounter Care Teams Dredge Lever Operator Relationship Specialty Start Date End Date Lamont Owusu MD [address] [place] [address] PCP - General Family Medicine 02/10/21 documented as of this encounter
--- OUTSIDE RECORDS SUMMARY | 2024-01-15 20:00 | XMS_ITS | Encounter Summary ---
Author Organization [facility] [place]inda [place] [place] [address] Care Team Providers Care Steel Fitter Name Role Phone Lamont Owusu MD Primary Care Provider [phone] Encounter Details Date Type Department Care Team (Late st Contact Info) Description 12/27/2023 Ancillary Procedure Radiology Library at [facility] [place] [phone] Lamont Owusu MD [facility] [address] [place] [address] Social History Tobacco Use Types Packs/Day Years [...] PM EDT documented as of this encounter Plan of Treatment Upcoming Encounters Date Type Department Care Team (Late st Contact Info) Description 01/19/2024 1:00 PM EST Office Visit Urology at [facility] [address] [place] [phone] Desean Coronado MD [facility] [place] [address] 01/22/2024 12:30 PM EST Office Visit Neurosurgery at [facility] [address] [place] [address] [place] [address] Liudmila Oates PA [facility] [place] [address] 02/01/2024 12:00 PM EST Office [place] [phone] Georgette Monae PA [facility] [place] [address] 05/30/2024 10:30 AM EDT [place]ment [place] [phone] documented as of this encounter Goals Goal Patient Goal Type Associated Problems Recent Progress Patient-Stated? Author prevention of MS relapse Patient Facing Action Plan Dionicio Almeida, [facility] documented as of this encounter Procedures Procedure Name Priority Date/Time Associated Diagnosis Comments FILM LIBRARY STORAGE ONLY MR SPINE Routine 12/27/2023 12:00 AM EST documented in this encounter Results * Film Library- Storage Only MR Spine (12/27/2023 12:00 AM EST) Narrative [facility] - 01/04/2024 12:24 PM EST This exam is auto-finalizing. It's purpose is for storage only. Lamont Owusu MD IMG FILM LIBRARY ORDERABLES [place], [place] documented in this encounter Visit Diagnoses Not on filedocumented in this encounter Care Teams Steel Fitter Relationship Specialty Start Date End Date Lamont Owusu MD [address] [place] [address] [address] [place] [address] PCP - General Family Medicine 02/10/21 documented as of this encounter
--- OUTSIDE RECORDS SUMMARY | 2024-01-15 20:00 | XMS_ITS | Encounter Summary ---
Author Organization [facility] [place] [address] Care Team Providers Care Commuter Pilot Name Role Phone Lamont Owusu MD Primary Care Provider +1 [phone] Reason for Referral * Consultation (CORINNE) - Authorized Specialty Diagnoses / Procedures Referred By Contac t Referred To Contact Neurosurgery Diagnoses Sciatica, right side Lamont Owusu MD [address] [place] [address] [place] [address] Referral ID Status Reason Start Date Expiration Date Visits Requested Visits Authorized [id number] Authorized Consult, Test & Treat 01/04/2024 01/03/2025 1 1 Encounter Details Date Type Department Care Team (Late st Contact Info) Description 01/04/2024 Transcribe Orders eDH Incoming Referrals [phone] Lamont Owusu MD [address] [place], [place] [id number] Sciatica, right side Social History Tobacco Use Types Packs/Day Years [...] 1:00 PM EST Office Visit [facility]rology at [facility] [address] [place] [phone] Desean Coronado MD [facility] [place] [address] 01/22/2024 12:30 PM EST Office Visit Neurosurgery at [facility] [address] [place] [address] Hema Escalante MD [address] [facility] [place] [address] Liudmila Oates PA 10 [facility] [place] [address] 02/01/2024 12:00 PM EST [place] [address] Georgette Monae PA [facility] [place] [address] 05/30/2024 10:30 AM EDT [place] [phone] Scheduled Referrals Name Type Priority Associated Diagnoses Order Schedule Referral to Neurosurgery Outpatient Referral Routine Sciatica, right side Ordered: 01/04/2024 documented as of this encounter Goals Goal Patient Goal Type Associated Problems Recent Progress Patient-Stated? Author prevention of MS relapse Patient Facing Action Plan Dionicio Almeida, [facility] documented as of this encounter Visit Diagnoses Diagnosis Sciatica, right side documented in this encounter Care Teams Commuter Pilot Relationship Specialty Start Date End Date Lamont Owusu MD [address] [place] [address] PCP - General Family Medicine 02/10/21 documented as of this encounter
--- OUTSIDE RECORDS SUMMARY | 2024-01-15 20:00 | XMS_ITS | Encounter Summary ---
Author Organization [facility] Address [facility] [place] [address] Care Team Providers Care Evaporator Operator Molasses Name Role Phone Lamont Owusu MD Primary Care Provider [phone] [phone] Encounter Details Date Type Department Care Team (Late st Contact Info) Description 12/01/2023 Orders [place] [address] Desean Coronado MD [facility] [place] [address] Hypogonadism in male (Primary Dx); Abnormal results of function studies of other [...] 1:00 PM EST Office Visit U[facility] at [facility] [address] [address] Desean Coronado MD [facility] [place] [address] 01/22/2024 12:30 PM EST Office Visit Neurosurgery at [facility] [place] [address] Hema Escalante MD [address] [place] [address] Liudmila Oates PA [address] [place] [address] 02/01/2024 12:00 PM EST Office [place] [phone] Georgette Monae PA [facility] [place] [address] 05/30/2024 10:30 AM EDT Appointment [place] [address] Scheduled Orders Name Type Priority Associated Diagnoses Orde r Schedule CBC (with Diff) Lab Routine Hypogonadism in male Expected: 02/21/2024 (Approximate), Expires: 11/30/2024 Estradiol Lab Routine Hypogonadism in male Expected: 02/21/2024, Expires: 11/30/2024 Testosterone, total Lab STAT Hypogonadism in male Expected: 02/21/2024 (Approximate), Expires: 11/30/2024 PSA (Ultrasensitive) Lab Routine Hypogonadism in male Abnormal results of function studies of other organs and systems Expected: 02/21/2024 (Approximate), Expires: 11/30/2024 documented as of this encounter Goals Goal Patient Goal Type Associated Problems Recent Progress Patient-Stated? Author prevention of MS relapse Patient Facing Action Plan Dionicio Almeida, [facility] documented as of this encounter Visit Diagnoses Diagnosis Hypogonadism in male- Primary Abnormal results of function studies of other organs and systems documented in this encounter Care Teams Evaporator Operator Molasses Relationship Specialty Start Date End Date Lamont Owusu MD [address] [place] [address] PCP - General Family Medicine 02/10/21 documented as of this encounter
--- OUTSIDE RECORDS SUMMARY | 2024-01-15 20:00 | XMS_ITS | Encounter Summary ---
Author Organization [facility] Address [facility] [address]inda [place] [place] [address] Care Team Providers Care Rolloff Truck Driver Name Role Phone Lamont Owusu MD Primary Care Provider [phone] [phone] Encounter Details Date Type Department Care Team (Late st Contact Info) Description 01/06/2024 Orders Only Urology [address] [place] [phone] Desean Coronado MD [facility] [place] [address] Social History Tobacco Use Types Packs/Day Years [...] 1:00 PM EST Office Visit Urology at [facility] [address] [place] [phone] Desean Coronado MD [facility] [address] 01/22/2024 12:30 PM EST Office Visit Neurosurgery at [facility] [address] [place] [address] Hema Escalante MD [address] [address] Liudmila Oates PA [facility] [place] [address] 02/01/2024 12:00 PM EST Office [place] [phone] Georgette Monae PA [facility] [place] [address] 05/30/2024 10:30 AM EDT Appointment [place] [phone] documented as of this encounter Goals Goal Patient Goal Type Associated Problems Recent Progress Patient-Stated? Author prevention of MS relapse Patient Facing Action Plan Dionicio Almeida, [facility] documented as of this encounter Visit Diagnoses Not on filedocumented in this encounter Care Teams Rolloff Truck Driver Relationship Specialty Start Date End Date Lamont Owusu MD [address] [place] [address] PCP - General Family Medicine 02/10/21 documented as of this encounter
--- OUTSIDE RECORDS SUMMARY | 2024-01-15 20:00 | XMS_ITS | Encounter Summary ---
Author Organization [facility] Address [facility] [place] [address] Care Team Providers Care Cement Truck Driver Name Role Phone Lamont Owusu MD Primary Care Provider [phone] [phone] Encounter Details Date Type Department Care Team (Latest Contact Info) Description 01/05/2024 1:45 PM EST Laboratory Appointment Lab at [address] [phone] Acquired buried penis Social History Tobacco Use Types Packs/Day Years [...] 1:00 PM EST Office Visit Urology at [facility] [address] [place] [phone] Desean Coronado MD [facility] [place] [place] [address] 01/22/2024 12:30 PM EST Office Visit Neurosurgery at [facility] [place] [phone] Hema Escalante MD [address] [place] [address] Liudmila [place] [address] 02/01/2024 12:00 PM EST Office [place] [phone] Georgette Monae PA [facility] [place] [address] 05/30/2024 10:30 AM EDT Appointment [place] [phone] documented as of this encounter Goals Goal Patient Goal Type Associated Problems Recent Progress Patient-Stated? Author prevention of MS relapse Patient Facing Action Plan Dionicio Almeida, [facility] documented as of this encounter Procedures Procedure Name Priority Date/Time Associated Diagnosis Comments CBC (WITH DIFF) Routine 01/05/2024 1:45 PM EST Acquired buried penis BASIC METABOLIC PANEL Routine 01/05/2024 1:45 PM EST Acquired buried penis documented in this encounter Results * Basic Metabolic Panel Non-fasting (01/05/2024 1:45 PM EST) Glucose 93 65 - 199 mg/dL 01/05/2024 9:17 PM EST [facility] Comment:Glucose Concentratio n >=200 mg/dL plus symptoms is consistent with Diabetes Mellitus. Blood Urea Nitrogen 14 10 - 20 mg/dL 01/05/2024 9:17 PM EST [facility] Creatinine 0.99 0.80 - 1.50 mg/dL 01/05/2024 9:17 PM EST [facility] Sodium 139 135 - 145 mMol/L 01/05/2024 9:17 PM EST [facility] Potassium 4.5 3.5 - 5.0 mMol/L 01/05/2024 9:17 PM [facility] Chloride 103 98 - 107 mMol/L 01/05/2024 9:17 PM [facility] Carbon Dioxide 29 22 - 31 mMol/L 01/05/2024 9:17 PM [facility] Anion Gap 7 5 - 15 mMol/L 01/05/2024 9:17 PM [facility] Calcium 9.5 8.5 - 10.5 mg/dL 01/05/2024 9:17 PM [facility] Est Glomerular Filtration Rate - Male 99 mL/min/1. 73 m?? 01/05/2024 9:17 PM [facility] Comment: This patient's estimated GFR was [...] Foundation Fasting Status No 01/05/2024 9:17 PM [facility] Blood VENOUS BLOOD SPECIMEN / Unknown Venipuncture / Unknown 01/05/2024 1:45 PM EST 01/05/2024 1:45 PM EST Desean Coronado MD CHEMISTRY ORDERABLES [facility] [place] [address] * (ABNORMAL) CBC (with Diff) (01/05/2024 1:45 PM EST) White Blood Cell 6.96 4.00 - 9.50 x10(3)/mc L 01/05/2024 1:56 PM [facility] Red Blood Cell 5.89(H) 4.58 - 5.54 x10(6)/mc L 01/05/2024 1:56 PM [facility] Hemoglobin 17.0(H) 13.7 - 16.5 g/dL 01/05/2024 1:56 PM [facility] Hematocrit 49.9(H) 40.5 - 48.5 % 01/05/2024 1:56 PM [facility] Mean Cell Volume 84.7 82.9 - 93.1 fL 01/05/2024 1:56 PM [facility] Mean Cell Hemoglobin 28.9 27.5 - 32.1 pg 01/05/2024 1:56 PM [facility] Mean Cell Hemoglobin Concentration 34.1 32.0 - 35.7 g/dL 01/05/2024 1:56 PM [facility] Platelet 234 145 - 357 x10(3)/mc L 01/05/2024 1:56 PM [facility] Mean Platelet Volume 10.4 7.6 - 12.9 fL 01/05/2024 1:56 PM [facility] RDW Standard Deviation 38.6 36.0 - 45.0 fL 01/05/2024 1:56 PM [facility] RDW coefficient of variation 12.4 11.4 - 13.8 % 01/05/2024 1:56 PM [facility] Neutrophil % 68.2 % 01/05/2024 1:56 PM [facility] Neutrophil Absolute (ANC) - Automated 4.74 1.70 - 6.10 x10(3)/mc L 01/05/2024 1:56 PM [facility] Lymph % 21.1 % 01/05/2024 1:56 PM [facility] Lymph Absolute 1.47 0.90 - 3.20 x10(3)/mc L 01/05/2024 1:56 PM [facility] Monocyte % 9.2 % 01/05/2024 1:56 PM [facility] Monocyte Absolute 0.64 0.30 - 0.90 x10(3)/mc L 01/05/2024 1:56 PM [facility] Eos % 1.1 % 01/05/2024 1:56 PM [facility] Eos Absolute 0.08 0.00 - 0.40 x10(3)/mc L 01/05/2024 1:56 PM EST [facility] Basophil % 0.4 % 01/05/2024 1:56 PM EST [facility] Baso Absolute <0.04 0.00 - 0.10 x10(3)/mc L 01/05/2024 1:56 PM EST [facility] Immature Gran % 0.0 % 1:56 PM [facility] Immature Gran Absolute <0.04 0.00 - 0.04 x10(3)/mc L 01/05/2024 1:56 PM EST [facility] Blood VENOUS BLOOD SPECIMEN / Unknown Venipuncture / Unknown 01/05/2024 1:45 PM EST 01/05/2024 1:45 PM EST Desean Coronado MD HEMATOLOGY ORDERABLE S Performing Organization Address City/State/[facility] Co de Phone Number [facility] [address] [place] [phone] documented in this encounter Visit Diagnoses Diagnosis Acquired buried penis Other specified disorder of penis documented in this encounter Care Teams Cement Truck Driver Relationship Specialty Start Date End Date Lamont Owusu MD [address] [place] [address] PCP - General Family Medicine 02/10/21 documented as of this encounter
--- OUTSIDE RECORDS SUMMARY | 2024-01-15 20:00 | XMS_ITS | Encounter Summary ---
Author Organization [facility] Address [facility] [address] [place] [address] Care Team Providers Care Build Engineer Name Role Phone Lamont Owusu MD Primary Care Provider [phone] [phone] Encounter Details Date Type Department Care Team (Latest Contact Info) Description 01/05/2024 Travel Social History Tobacco Use Types Packs/Day Years [...] 1:00 PM EST Office Visit [facility]rology at [facility] [address] [place] [phone] Desean Coronado MD [facility] [place] [address] 01/22/2024 12:30 PM EST Office Visit Neurosurgery at [facility] [address] [place] [address] Hema Escalante MD [facility] [place] [address] [place] [address] 02/01/2024 12:00 PM EST Office [place] [phone] Georgette Monae PA [facility] [place] [address] 05/30/2024 10:30 AM EDT [place]ointment [place] [phone] documented as of this encounter Goals Goal Patient Goal Type Associated Problems Recent Progress Patient-Stated? Author prevention of MS relapse Patient Facing Action Plan Dionicio Almeida, [facility] documented as of this encounter Visit Diagnoses Not on filedocumented in this encounter Care Teams Build Engineer Relationship Specialty Start Date End Date Lamont Owusu MD [address] [place] [address] PCP - General Family Medicine 02/10/21 documented as of this encounter
--- OUTSIDE RECORDS SUMMARY | 2024-01-15 20:00 | XMS_ITS | Encounter Summary ---
Author Organization [facility] [place] [address] Care Team Providers Care Review Analyst Name Role Phone Lamont Owusu MD Primary Care Provider +1 [phone] Encounter Details Date Type Department Care Team (Late st Contact Info) Description 12/19/2023 [place] [phone] Carolin Ordaz RN Social History Tobacco Use Types Packs/Day Years [...] PM EDT documented as of this encounter Progress Notes * Carolin Ordaz RN - 12/19/2023 3:12 PM EDT Call returned to patient, notified pt that Dr. Coronado is in agreement that he should rotate with tylenol/IBU and apply heat/ice, if his pain is not relieved with heat/ice, rotating with tylenol/IBU and his prescribed pain medications then pt should be evaluated in the ED, patient verbalizes understanding. * Carolin Ordaz RN - 12/19/2023 2:19 PM EDT Call returned to patient. Review of symptoms: Patient reports that since his right IM gluteal injection of testosterone on 12/05/23 he has he hasbeen experiencing sudden sharp pains down right leg that radiates down his into his calf into his foot, that is aggravated by sitting. Patient took double gabapentin, he is also prescribed baclofen and ultram which has not improved symptoms. Recommended that patient try applying heat or ice to the right upper quadrant of his glute and rotating with IBU and tylenol. Patient is scheduled to see his primary care physician tomorrow, advised that patient be evaluated in the ED if pain gets worse or is unrelieved with the above recommendation. documented in this encounter Miscellaneous Notes * Telephone Encounter - Carolin Ordaz RN - 12/19/2023 2:18 PM EDT Copied from [facility] #[id number]. Topic: Specialty Dept CRMs - Triage >> Dec 19, 2023 12:34 PM Hany Kahn wrote: Triage Message Specialist: Desean Coronado MD Relationship (if other than patient-full name): Patient Symptom: Pain in Leg Has patient experienced symptom before No If patient has experienced symptom before, when was the last time this occurred N/a Is patient currently having symptom Yes When did symptom begin After 10/15 Injection Additional Comments: Patient calling in regards to having sharp pains going down his leg after he did his testosterone injection on right side of his bottom. Please advise documented in this encounter Plan of Treatment Upcoming Encounters Date Type Department Care Team (Late st Contact Info) Description 01/19/2024 1:00 PM EST Office Visit Urology at [facility] [address] [place] [phone] Desean Coronado MD [facility] [place] [address] 01/22/2024 12:30 PM EST Office Visit Neurosurgery at [facility] [address] [facility] [place] [address] Hema Escalante MD [facility] [place] [address] Liudmila Oates PA [address] [address] 02/01/2024 12:00 PM EST [place] [phone] Georgette Monae PA [facility] [place] [address] 05/30/2024 10:30 AM EDT [place] [phone] documented as of this encounter Goals Goal Patient Goal Type Associated Problems Recent Progress Patient-Stated? Author prevention of MS relapse Patient Facing Action Plan Dionicio Almeida, [facility] documented as of this encounter Visit Diagnoses Not on filedocumented in this encounter Care Teams Review Analyst Relationship Specialty Start Date End Date Lamont Owusu MD [address] [place] [address] PCP - General Family Medicine 02/10/21 documented as of this encounter
--- OUTSIDE RECORDS SUMMARY | 2024-01-15 20:00 | XMS_ITS | Encounter Summary ---
Author Organization [facility] Address [facility] [address] [place] [place] [address] Care Team Providers Care Dual Hose Cementer Name Role Phone Lamont Owusu MD Primary Care Provider [phone] [phone] Encounter Details Date Type Department Care Team (Latest Contact Info) Description 01/12/2024 Travel Social History Tobacco Use Types Packs/Day [...] 1:00 PM EST Office Visit Urology at [facility] [address] [place] [phone] Desean Coronado MD [facility] [place] [address] 01/22/2024 12:30 PM EST Office Visit Neurosurgery at [facility] [address] [place] [address] Hema Escalante MD [facility] [place] [address] [place] [address] 02/01/2024 12:00 PM EST Office [place] [phone] Georgette Monae PA [facility] [place] [address] 05/30/2024 10:30 AM EDT Appointment [place] [phone] documented as of this encounter Goals Goal Patient Goal Type Associated Problems Recent Progress Patient-Stated? Author prevention of MS relapse Patient Facing Action Plan Dionicio Almeida, [facility] documented as of this encounter Visit Diagnoses Not on filedocumented in this encounter Care Teams Dual Hose Cementer Relationship Specialty Start Date End Date Lamont wOusu MD [address] [place] [address] PCP - General Family Medicine 02/10/21 documented as of this encounter
--- OUTSIDE RECORDS SUMMARY | 2024-01-15 20:00 | XMS_ITS | Clinical Summary ---
Author Organization [facility] Address [facility] [place] [address] Care Team Providers Care Cryptologic Technician Technical Name Role Phone Lamont Owusu MD Primary Care Provider [phone] Allergies No known active allergies Medications Medication Sig Dispensed Refills Start Date End Date Status methylphenidate (RITALIN) 20 mg Tablet Take 20 mg by mouth 3 times daily. 0 10/17/2014 Active b complex vitamins Capsule Take 1 capsule by mouth daily. Active diazePAM (VALIUM) 5 mg Tablet Take 1 tablet by mouth nightly as needed for Muscle spasms. 14 tablet 04/07/2018 Active traMADol (ULTRAM) 50 mg Tablet Take 1 tablet by mouth every 4 hours as needed for Pain. 60 tablet 04/07/2018 Active gabapentin (Neurontin) 100 mg CapsuleIndication s:Multiple sclerosis PO. 2 tabs in AM, 2 tabs in the afternoon, and 4 tabs nightly. 240 capsule 5 04/30/2020 Active Additional Information Patient taking differently: 400 mg 3 TIMES DAILY, (No instructions reported), Reported on 08/16/2023 losartan (Cozaar) 25 mg Tablet Take 25 mg by mouth nightly. 04/30/2020 Active sildenafiL (Viagra) 100 mg tablet Take 1 tablet by mouth as needed. 30 tablet 5 10/06/2022 Active albuteroL 90 mcg/actuation HFA Aerosol Inhaler 4 times daily. 05/25/2022 Activ e busPIRone (Buspar) 15 mg tablet Take 7.5 mg by mouth 2 times daily. 09/21/2022 Active polyethylene glycoL (Miralax) 17 gram/dose Powder daily. 03/19/2022 Active cholecalciferol, Vitamin D3, 25 mcg (1,000 unit) Capsule Take 1 capsule by mouth Daily at Noon. 03/29/2023 Active Needle, Disp, 18 G 18 gauge x 1 1/2 Needle Use 1 syringe weekly for IM testosterone injection 100 each 3 06/22/2023 Active naloxone (Narcan) 4 mg/actuation nasal spray Q2M 09/08/2020 Active BD SafetyGlide Needle 18 gauge x 1 1/2 Needle USE ONCE WEEKLY FOR TESTOSTERONE INJECTION 06/22/2023 Active anastrozole (Arimidex) 1 mg tablet Take 1 tablet by mouth once a week. 12 tablet 3 08/30/2023 Active testosterone cypionate (DepoTESTOSTERONE Cypionate) (200mg/mL) injectionIndicati ons:Hypogonadism in male Inject 1 mL into the muscle every 14 days. 6 mL 11/20/2023 Active syringe with needle, disposable, 3 mL 22 gauge x 1 Syringe Use 1 syringe weekly for IM testosterone injection 12 each 3 11/20/2023 Active baclofen (Lioresal) 10 mg tabletIndications :Muscle spasms of both lower extremities Take 1 tablet by mouth 3 times daily for 180 days. 90 tablet 5 11/29/2023 05/27/2024 Active Hysingla ER 20 mg ER 24 hr tablet (CRUSH RESISTANT) Take 1 tablet by mouth Daily at Noon. 11/29/2023 Active oxyCODONE-acetami nophen (Percocet) 5-325 mg tablet Take 1 tablet by mouth every 4 hours as needed. 10 tablet 01/11/2024 Active docusate sodium (Colace) 100 mg capsule Take 1 capsule by mouth 2 times daily for 10 days. 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 There is T2 prolongation within the disc and postcontrast enhancement consistent with an acute on chronic protrusion. Question caudad migration of a disc fragment inferior and along the posterior aspect of T9. 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 Right lumbar radiculopathy 11/14/2014 Lower back pain 11/14/2014 Left lumbar radiculopathy 08/25/2014 Encounters Date Type Department Care Team Description 01/15/2024 Telephone Urology at [address] [phone] Michelle Scott 01/12/2024 Telephone Urology at [address] [phone] Michelle Scott 01/12/2024 Travel 01/11/2024 8:30 AM EST - 01/11/2024 11:00 AM EST Surgery Main OR at [address] [phone] Desean Coronado MD ADJ.TISSUE TRANSFER, REARRANGEMENT, 10.1 TO 30 SQ.CM, GENITALIA (WRVU 10.83) 01/11/2024 8:27 AM EST Anesthesia Event Main OR at [address] [phone] Rajendra Osorio, Kristin Rangel, JOSE 01/11/2024 7:20 AM EST - 01/11/2024 11:45 AM EST Hospital Encounter PACU at [address] [phone] Desean Coronado MD Acquired buried penis Discharge Disposition: Home 01/06/2024 Orders Only Urology [address] [place] [phone] Desean Coronado MD 01/05/2024 2:00 PM EST Office Visit Urology at [facility] [address] [place] [phone] Desean Coronado MD Acquired buried penis; Hypogonadism in male; Abnormal results of function studies of other organs and systems 01/05/2024 1:45 PM EST Laboratory Appointment Lab at [address] [address] Acquired buried penis 01/05/2024 Travel 01/04/2024 1:30 PM EST Telephone Pre Admission Testing at [address] [phone] 01/04/2024 Transcribe Orders eDH Incoming Referrals [phone] Lamont Owusu MD Sciatica, right side 12/27/2023 Ancillary Procedure Radiology Library at [facility] [place] [phone] Lamont Owusu MD 12/19/2023 [place] [address] Carolin Ordaz RN 12/01/2023 [place] [address] Desean Coronado MD Hypogonadism in male (Primary Dx); Abnormal results of function studies of other organs and systems 11/30/2023 4:00 PM EDT Laboratory Appointment Lab [address] [place] [address] Hypogonadism in male; Abnormal results of function studies of other organs and systems 11/30/2023 10:53 AM EDT - 11/30/2023 11:59 PM EDT Hospital En[place] [address] Multiple sclerosis Discharge Disposition: Home 11/30/2023 Travel 11/29/2023 [place] [address] Erick York III, MD Muscle spasms of both lower extremities 11/23/2023 Travel 11/20/2023 [place] [address] Desean Coronado MD 11/17/2023 [place] [address] Desean Coronado MD Hypogonadism in male 11/15/2023 9:48 AM EDT - 11/15/2023 11:59 PM EDT Hospital Encounter [place] [phone] Multiple sclerosis Discharge Disposition: Home 11/15/2023 Travel 11/08/2023 Travel 11/01/2023 [place] [phone] Desean Coronado MD Acquired buried penis 10/30/2023 Telephone Urology at [facility] [address] [place] [phone] Ana Maria Barbour LPN from Last 3 Months Immunizations Name Administration Dates Next Due Influenza PF, Split 12/01/2015 Family History Medical History Relation Comments Arthritis Mother Hypertension Mother Diabetes Paternal Grandfather Amblyopia Neg Hx Cataracts Neg Hx Glaucoma Neg Hx Macular Degeneration Neg Hx Retinal Detachment Neg Hx Strabismus Neg Hx Thyroid Disease Neg Hx Relation Status Comments Mother Alive Paternal Grandfather Social History Tobacco Use Types Packs/Day Years Used Date Smoking Tobacco: Former Cigarettes Q uit: 08/20/2018 Smokeless Tobacco: Never Tobacco Cessation:Counseling Given: No Comments:Stopped smoking about two months (documented on 08/30/23) Alcohol Use Standard Drinks/Week Comments Not Currently 0 (1 standard drink = 0.6 oz pur e alcohol) Sex and Gender Information Value Date Recorded Sex Assigned at Male 06/03/2020 7:58 PM EDT Gender Identity Male 02/26/2022 11:00 AM EST Sexual Orientation Straight 06/03/2020 7: 58 PM EDT Last Filed Vital Signs Vital Sign Reading Time Taken Comments Blood Pressure 144/97 01/11/2024 11:35 AM EST pt sitting at edge of bed, no dizziness/lightheaded ness, no CP/SOB, skin PWD Pulse 76 01/11/2024 11:35 AM EST Temperature 36.2 ??C (97.2 ??F) 01/11/2024 1 1:35 AM EST Respiratory Rate 23 01/11/2024 11:3 5 AM EST Oxygen Saturation 94% 01/11/2024 11: 35 AM EST Inhaled Oxygen Concentration - - Weight 103.4 kg (228 lb) 01/11/2024 7:3 9 AM EST Height 175.3 cm (5' 9.02) 01/11/2024 7 :39 AM EST Body Mass Index 33.65 01/11/2024 7:39 AM EST Plan of Treatment Upcoming Encounters Date Type Department Care Team (Late st Contact Info) Description 01/19/2024 1:00 PM EST Office Visit Urology at [facility] [address] [place] [phone] Desean Coronado MD [facility] [place] [address] 01/22/2024 12:30 PM EST Office Visit Neurosurgery at [facility] [address] [place] [address] Hema Escalante MD 10 [facility] [address] Liudmila Oates PA 10 [facility] [address] 02/01/2024 12:00 PM EST Office [place] [phone] Georgette Monae PA [facility] [place] [address] 05/30/2024 10:30 AM EDT Appointment [place] [phone] Health Maintenance Due Date Last Done Comments Lipid Screening 2002 Hepatitis B vaccine (0-59 yrs) (1) 11/10/2003 Tetanus/Diphtheria/Pertussis Vaccines (1 - Tdap) 11/10/2003 Covid-19 Vaccine (1 - season) 2023 Influenza (Flu) vaccine (1 o f 1 - Influenza standard series) 10/22/2023 12/01/2015 HIV screen Completed 04/06/2018 Hepatitis C Screening Completed 06/16/2023, 019 Goals Goal Patient Goal Type Associated Problems Recent Progress Patient-Stated? Author prevention of MS relapse Patient Facing Action Plan Dionicio Almeida, [facility] Procedures Procedure Name Priority Date/Time Associated Diagnosis Comments SCAN DOC: TELEMETRY STRIPS 01/11/2024 11:10 AM EST Adj Tiss Transfer Head, Fac, Hand 10.1-30 ([id number]) 01/11/2024 8:26 AM EST Acquired buried penis BASIC METABOLIC PANEL Routine 01/05/2024 1:45 PM EST Acquired buried penis CBC (WITH DIFF) Routine 01/05/2024 1:45 PM EST Acquired buried penis ECG SCAN 01/05/2024 12:00 AM EST FILM LIBRARY STORAGE ONLY MR SPINE Routine 12/27/2023 12:00 AM EST ESTRADIOL Routine 11/30/2023 10:46 AM EDT Hypogonadism in male PSA (ULTRASENSITIVE) Routine 11/30/2023 10:46 AM EDT Hypogonadism in male Abnormal results of function studies of other organs and systems TESTOSTERONE, TOTAL Routine 11/30/2023 1 0:46 AM EDT Hypogonadism in male CBC (WITH DIFF) Routine 11/30/2023 10:46 AM EDT Hypogonadism in male HEPATITIS C ANTIBODY Routine 06/16/2023 12:55 PM EDT Multiple sclerosis HIV SCREEN, 4TH GENERATION ([facility]P/APD/[facility]H) Routine 04/06/2018 11:10 AM EST from Last 3 Months or Most Recently Relevant to Health Maintenance Results * Scan Doc: Telemetry Strips (01/11/2024 11:10 AM EST) Narrative 01/11/2024 11:10 AM EST Ordered by an unspecified provider. Scanning Provider MEDIA MGR SCAN EXT O RDR/RSLT * (ABNORMAL) CBC (with Diff) (01/05/2024 1:45 PM EST) Only the most recent of2 resultswithin the time period is included. White Blood Cell 6.96 4.00 - 9.50 x10(3)/mc L 01/05/2024 1:56 PM [facility] Red Blood Cell 5.89(H) 4.58 - 5.54 x10(6)/mc L 01/05/2024 1:56 PM [facility] Hemoglobin 17.0(H) 13.7 - 16.5 g/dL 01/05/2024 1:56 PM [facility] Hematocrit 49.9(H) 40.5 - 48.5 % 01/05/2024 1:56 PM [facility] Mean Cell Volume 84.7 82.9 - 93.1 fL 01/05/2024 1:56 PM [facility] Mean Cell Hemoglobin 28.9 27.5 - 32.1 pg 01/05/2024 1:56 PM [facility] Mean Cell Hemoglobin Concentration 34.1 32.0 - 35.7 g/dL 01/05/2024 1:56 PM [facility] Platelet 234 145 - 357 x10(3)/mc L 01/05/2024 1:56 PM [facility] Mean Platelet Volume 10.4 7.6 - 12.9 fL 01/05/2024 1:56 PM [facility] RDW Standard Deviation 38.6 36.0 - 45.0 fL 01/05/2024 1:56 PM [facility] RDW coefficient of variation 12.4 11.4 - 13.8 % 01/05/2024 1:56 PM [facility] Neutrophil % 68.2 % 01/05/2024 1:56 PM [facility] Neutrophil Absolute (ANC) - Automated 4.74 1.70 - 6.10 x10(3)/mc L 01/05/2024 1:56 PM [facility] Lymph % 21.1 % 01/05/2024 1:56 PM [facility] Lymph Absolute 1.47 0.90 - 3.20 x10(3)/mc L 01/05/2024 1:56 PM [facility] Monocyte % 9.2 % 01/05/2024 1:56 PM [facility] Monocyte Absolute 0.64 0.30 - 0.90 x10(3)/mc L 01/05/2024 1:56 PM [facility] Eos % 1.1 % 01/05/2024 1:56 PM [facility] Eos Absolute 0.08 0.00 - 0.40 x10(3)/mc L 01/05/2024 1:56 PM [facility] Basophil % 0.4 % 01/05/2024 1:56 PM [facility] Baso Absolute <0.04 0.00 - 0.10 x10(3)/mc L 01/05/2024 1:56 PM [facility] Immature Gran % 0.0 % 1:56 PM [facility] Immature Gran Absolute <0.04 0.00 - 0.04 x10(3)/mc L 01/05/2024 1:56 PM [facility] Blood VENOUS BLOOD SPECIMEN / Unknown Venipuncture / Unknown 01/05/2024 1:45 PM EST 01/05/2024 1:45 PM EST Desean Coronado MD HEMATOLOGY ORDERABLE S [facility] [address] [place] [address] * Basic Metabolic Panel Non-fasting (01/05/2024 1:45 PM EST) Glucose 93 65 - 199 mg/dL 01/05/2024 9:17 PM EST [facility] Comment:Glucose Concentratio n >=200 mg/dL plus symptoms is consistent with Diabetes Mellitus. Blood Urea Nitrogen 14 10 - 20 mg/dL 01/05/2024 9:17 PM [facility] Creatinine 0.99 0.80 - 1.50 mg/dL 01/05/2024 9:17 PM [facility] Sodium 139 135 - 145 mMol/L 01/05/2024 9:17 PM [facility] Potassium 4.5 3.5 - 5.0 mMol/L 01/05/2024 9:17 PM [facility] Chloride 103 98 - 107 mMol/L 01/05/2024 9:17 PM [facility] Carbon Dioxide 29 22 - 31 mMol/L 01/05/2024 9:17 PM [facility] Anion Gap 7 5 - 15 mMol/L 01/05/2024 9:17 PM [facility] Calcium 9.5 8.5 - 10.5 mg/dL 01/05/2024 9:17 PM [facility] Est Glomerular Filtration Rate - Male 99 mL/min/1. 73 m?? 01/05/2024 9:17 PM [facility] Comment: This patient's estimated GFR [...] Foundation Fasting Status No 01/05/2024 9:17 PM [facility] Blood VENOUS BLOOD SPECIMEN / Unknown Venipuncture / Unknown 01/05/2024 1:45 PM EST 01/05/2024 1:45 PM EST Desean Coronado MD CHEMISTRY ORDERABLES Performing Organization Address City/[facility]/[place] [address] * Scan Doc: ECG (01/05/2024 12:00 AM EST) Narrative 01/05/2024 12:00 AM EST Ordered by an unspecified provider. Scanning Provider MEDIA MGR SCAN EXT O RDR/RSLT * Film Library- Storage Only MR Spine (12/27/2023 12:00 AM EST) Narrative [facility] - 01/04/2024 12:24 PM EST This exam is auto-finalizing. It's purpose is for storage only. Lamont Owusu MD IMG FILM LIBRARY ORDERABLES Performing Organization Address [facility] Co de Phone Number [place], [place] * Estradiol (11/30/2023 10:46 AM EDT) Estradiol 9 11 to 43 pg/mL pg/mL 11/30/2023 11:57 AM EDT [facility] Blood VENOUS BLOOD SPECIMEN / Unknown Venipuncture / Unknown 11/30/2023 10:46 AM EDT 11/30/2023 10:46 AM EDT Desean Coronado MD CHEMISTRY ORDERABLES Performing Organization Address City/[facility]/[place] [address] * Testosterone, total (11/30/2023 10:46 AM EDT) Testosterone 5.29 2.49 - 8.36 ng/ml 11/30/2023 2:00 PM EDT [facility] Blood VENOUS BLOOD SPECIMEN / Unknown Venipuncture / Unknown 11/30/2023 10:46 AM EDT 11/30/2023 10:46 AM EDT Desean Coronado MD CHEMISTRY ORDERABLES [facility] [place] [address] * PSA (Ultrasensitive) (11/30/2023 10:46 AM EDT) Prostate Specific Antigen (Ultrasensitive) 0.55 0.00-4.00 ng/mL ng/ml 11/30/2023 11:53 AM EDT [facility] Comment:The reference interv al (0 - 4 ng/mL) is applicable to individuals with an intact prostate. Values within this reference interval may indicate recurrence in those who have undergone radical prostatectomy. This result was generated using a Jennie Marissa immunoassay. Results obtained from other methods or manufacturers cannot be used interchangeably with this method. Blood VENOUS BLOOD SPECIMEN / Unknown Venipuncture / Unknown 11/30/2023 10:46 AM EDT 11/30/2023 10:46 AM EDT Desean Coronado MD CHEMISTRY ORDERABLES Performing Organization Address [facility]/ZIP Co de Phone Number [facility] [place] [address] * Hepatitis C Antibody (06/16/2023 12:55 PM EDT) Hepatitis C Antibody Negative Negative [facility] Blood 06/16/2023 12:5 5 PM EDT 06/16/2023 1:11 PM EDT Narrative Resulting Agency Comment Spec In Lab Erick York III, MD CHEMISTRY ORDERAB LES Performing Organization Address City/[facility]/ZIP Co de Phone Number [facility] [place] [address] * HIV Screen, 4th Generation (04/06/2018 11:10 AM EST) HIV Ab/Ag Screen Negative Negative [facility] Comment: This 4th Generation HIV test screens for the presence of the HIV-1 p24 antigen as well as antibodies reactive against HIV-1 and HIV-2. A negative screen does not rule out an acute HIV infection. If acute HIV infection is suspected, testing should be repeated in 2 - 3 weeks or HIV nucleic acid testing performed. Blood specimen (specimen) 04/06/2018 11:10 AM EST 04/06/2018 11:31 AM EST Narrative Resulting Agency Comment Spec In Lab Erick York III, MD CHEMISTRY ORDERAB LES [facility] [place] [address] from Last 3 Months or Most Recently Relevant to Health Maintenance Advance Directives * Full Code (Latest Code Status on File) Date Activated Date Inactivated Comments 04/04/2018 10:10 PM 04/07/2018 6:28 PM Question Answer Comments Does patient have capacity to make decision: Yes Care Teams Cryptologic Technician Technical Relationship Specialty Start Date End Date Lamont Owusu MD [address] [place] [address] PCP - General Family Medicine 02/10/21
--- OUTSIDE RECORDS SUMMARY | 2024-01-15 20:00 | XMS_ITS | Encounter Summary ---
Author Organization [facility] Address [facility] [address] [place] [address] Care Team Providers Care Converter Supervisor Name Role Phone Lamont Owusu MD Primary Care Provider [phone] Encounter Details Date Type Department Care Team (Latest Contact Info) Description 11/23/2023 Travel Social History Tobacco Use Types Packs/Day [...] 1:00 PM EST Office Visit Urology at [facility] [address] [place] [phone] Desean Coronado MD [facility] [place] [place] [address] 01/22/2024 12:30 PM EST Office Visit Neurosurgery at [facility] [address] [place] [address] Hema Escalante MD [facility] [place] [address] [place] [address] 02/01/2024 12:00 PM EST Office [place] [phone] Georgette Monae PA [facility] [place] [address] 05/30/2024 10:30 AM EDT Appointment [place] [phone] documented as of this encounter Goals Goal Patient Goal Type Associated Problems Recent Progress Patient-Stated? Author prevention of MS relapse Patient Facing Action Plan Dionicio Almeida, [facility] documented as of this encounter Visit Diagnoses Not on filedocumented in this encounter Care Teams Converter Supervisor Relationship Specialty Start Date End Date Lamont Owusu MD [address] [place] [address] PCP - General Family Medicine 02/10/21 documented as of this encounter
--- OUTSIDE RECORDS SUMMARY | 2024-01-15 20:00 | XMS_ITS | Encounter Summary ---
Author Organization Formerly [facility] Melinda me[place]иван [place] [address] Care Team Providers Care Canvas Cutter Name Role Phone Lamont Owusu MD Primary Care Provider [phone] [phone] Reason for Visit * Auth/Cert (Routine) Specialty Diagnoses / Procedures Referred By Contac t Referred To Contact Diagnoses Acquired buried penis Acquired buried penis Procedures PRO ADJ TISS TRANSFER HEAD, FAC, HAND 10.1-30 ADJ.TISSUE TRANSFER, REARRANGEMENT, 10.1 TO 30 SQ.CM, GENITALIA (WRVU 10.83) Desean Coronado MD [facility] [place] [address] [facility] Referral ID Status Reason Start Date Expiration Date Visits Re quested Visits Authorized [id number] 1 1 Encounter Details Date Type Department Care Team (Latest Contact Info) Description 01/11/2024 7:20 AM EST - 01/11/2024 11:45 AM [facility] Hospital Encounter PACU at [address] [phone] Desean Coronado MD [facility] [place] [address] Acquired buried penis Discharge Disposition: Home Social History Tobacco Use [...] up visit in about one week at [facility]. You will becontacted with the exact date and time. Hold your aspirin until after your drain removal visit. Please follow the below discharge instructions and contact my office if you have any questions. - If you were seen in clinic at [facility] in [place] call [phone]. - If you were seen in clinic at in [place] call [phone]. - If you were seen in clinic at [facility] in [place] call [phone]. - If you were seen in clinic at [facility] call [phone]. POSTOPERATIVE INSTRUCTIONS BURIED PENIS SURGERY Wound Care [...] oozing that saturates the dressing complete or joan bright red bleeding. In either case, apply [...] through Care Everywhere. * Surgical Drain Care (Japanese) * Caring for a Drain After Surgery: Video (Japanese) documented in this encounter Medications at Time [...] EST Patient meets criteria for discharge from [facility] per protocol. AVS reviewed, including medications, [...] documented in this encounter H&P Notes * Deesan Coronado MD - 01/11/2024 8:07 AM EST [...] buried penis repair on January 10 at [facility]. I explained that the surgery will [...] Coronado MD - 01/11/2024 10:21 AM EST [facility] Brief Operative Note [address] Patient Name: Erick Chacon : [id number] MR#: [id number] Case Date: 01/11/2024 Case Scheduled Time: 829 Surgeon: Surgeons and Role: * Desean Coronado [...] Coronado MD - 01/11/2024 8:52 AM EST [facility] Operative Note [address] Patient Name: Erick Chacon : [id number] MR#: [id number] Case Date: 01/11/2024 Case Scheduled Time: 829 SURGEON: Desean Coronado MD SOURCING ASSOCIATE: Shelby Bruno MD ANESTHESIOLOGIST: Rajendra Osorio CRNA [...] 1:00 PM EST Office Visit Urology at [address] [phone] Desean Croonado MD [facility] [place] [address] 01/22/2024 12:30 PM EST Office Visit Neurosurgery at [facility] [address] [place] [phone] Hema Escalante MD 10 [facility] [place] [address] Liudmila Oates PA 10 [facility] [place] [address] 02/01/2024 12:00 PM [place] [phone] Georgette Monae PA [facility] [place] [address] 05/30/2024 10:30 AM EDT [place] [phone] Pending Results Name Type Priority Associated Diagnoses [...] [facility] documented as of this encounter Procedures Procedure Name Priority Date/Time Associated Diagnosis Comments Adj Tiss Transfer Head, Fac, Hand 10.1-30 (10702) 01/11/2024 8:26 AM EST Acquired buried penis [...] Given 01/11/2024 7:41 AM EST 975 mg celecoxib (CeleBREX) capsule 200 mg 200 mg, [...] Procedure), Indication for (Active or Suspected): Prophylaxis 08 (New Bag - Prov ider: Rajendra Osorio CRNA) celecoxib (CeleBREX) capsule 200 mg (COMPLETED) 200 [...] 1149, Day of Surgery (Day of Procedure) 08 (New Bag - Prov ider: Rajendra Osorio [...] RN) documented in this encounter Care Teams Canvas Cutter Relationship Specialty Start Date End Date Lamont Owusu MD [address] [place] [address] PCP - General Family Medicine 02/10/21 documented as of this encounter
--- OUTSIDE RECORDS SUMMARY | 2024-01-15 20:00 | XMS_ITS | Encounter Summary ---
Author Organization [facility] Address [facility] Melinda meyerиван [place] [address] Care Team Providers Care Dragsaw Operator Name Role Phone Lamont Owusu MD Primary Care Provider [phone] [phone] Encounter Details Date Type Department Care Team (Latest Contact Info) Description 11/30/2023 Travel Social History Tobacco Use Types Packs/Day [...] 1:00 PM EST Office Visit Urology at [facility] [address] [place] [phone] Desean Coronado MD [facility] [place] [address] 01/22/2024 12:30 PM EST Office Visit Neurosurgery at [facility] [address] [place] [address] Hema Escalante MD [facility] [place] [address] [place] [address] 02/01/2024 12:00 PM EST Office [place] [phone] Georgette Monae PA [facility] [place] [address] 05/30/2024 10:30 AM EDT Appointment [place] [phone] documented as of this encounter Goals Goal Patient Goal Type Associated Problems Recent Progress Patient-Stated? Author prevention of MS relapse Patient Facing Action Plan Dionicio Almeida, [facility] documented as of this encounter Visit Diagnoses Not on filedocumented in this encounter Care Teams Dragsaw Operator Relationship Specialty Start Date End Date Lamont Owusu MD [address] [place] [address] PCP - General Family Medicine 02/10/21 documented as of this encounter
--- OUTSIDE RECORDS SUMMARY | 2024-01-15 20:00 | XMS_ITS | Encounter Summary ---
Author Organization [facility] [place] [address] Care Team Providers Care Cooker Soda Name Role Phone Lamont Owusu MD Primary Care Provider [phone] [phone] Reason for Visit * Auth/Cert (Routine) Specialty Diagnoses / Procedures Referred By Contac t Referred To Contact Diagnoses Acquired buried penis Acquired buried penis Procedures PRO ADJ TISS TRANSFER HEAD, FAC, HAND 10.1-30 ADJ.TISSUE TRANSFER, REARRANGEMENT, 10.1 TO 30 SQ.CM, GENITALIA (WRVU 10.83) Desean Coronado MD [facility] [place] [address] [facility] Referral ID Status Reason Start Date Expiration Date Visits Re quested Visits Authorized [id number] 1 1 Encounter Details Date Type Department Care Team (Late st Contact Info) Description 01/11/2024 8:27 AM EST Anesthesia Event Main OR at [address] [phone] Rajendra Osorio, JOSE [address] [place] [address] Kristin Santillan CRNA [address] [place] [address] [place] [address] Anesthesia Record Procedure Summary Procedure Name Responsible Anesthesiologist Anesthesia Start Time Anesthesia Stop Time ADJ.TISSUE TRANSFER, REARRANGEMENT, 10.1 TO 30 SQ.CM, GENITALIA (WRVU 10.83) (Perineum) Rajendra Osorio, ELECTRICIAN BUS 01/11/24 0827 01/11/24 1032 Events Date Time Event Comment 01/11/2024 0730 0827 AN Verify 0827 Start 0827 An Start Data 0832 An Induction 0835 An Intubation 0836 Anesthesia Ready 1010 Extubation/LMA Out 1015 an stop data 1032 Stop Meds Name Total Midazolam 2 mg fentaNYL 100 mcg Propofol 250 mg Propofol INF 137.01 mg Rocuronium 50 mg Ondansetron 4 mg Dexamethasone 8 mg ceFAZolin (Ancef) 2 g vial a ttach to sodium chloride 0.9% 100 mL Mini-Bag Plus 2 g Sugammadex 200 mg lactated ringers infusion 0 mL * Agents Name O2 Sevoflurane (et) * Blood No blood administrations on file. Lines, Drains, and Airways Type Details Placement Removal Incision 01/11/24; 0852; anterior, lower; abdomen 01/11/24 0852 by Christina Rodriguez, ANTONIO Closed/Suction Drain 01/11/24; 0937; Rig ht, Anterior; Hip; Bulb 01/11/24 0937 by Christina Rodriguez, ANTONIO Closed/Suction Drain 01/11/24; 0937; Lef t, Anterior; Hip; Bulb 01/11/24 0937 by Christina Rodriguez, ANTONIO PIV 01/11/24; 0801; zlyj-gpe-mdoakb catheter system; 20 gauge; metacarpal vein (top of hand), left; Anatomical Landmarks; US Not Used; distraction, tolerated well, appears comfortable; no longer indicated, removed per policy/procedure, catheter/device intact; 01/11/24; 1150 01/11/24 0801 by Kathrine Coronado RN 01/11/24 1150 by Viky Curry, RN ETT Mask Ventilation: No t Attempted (0); ETT Type: Cuffed, Oral; ETT Size: 7.5 mm; Indirect: Video; Notes: Asleep, Pre-O2, Stylette; Attempts: 1; Laryngoscopy Grade: 2; ETT Placement Verified By: Auscultation, Capnometry, Visual; Secured at Teeth: 24 cm; Intubation Injury: Soft Tissue; Removal Date: 01/11/24; Removal Time: 1010 01/11/24 0835 by Rajendra Osorio CRNA 01/11/24 1010 by Rajendra Osorio CRNA documented in this encounter Social History Tobacco Use Types Packs/Day Years [...] PM EDT documented as of this encounter OR Notes * Anesthesia Postprocedure Evaluation - Rajendra Osorio CRNA - 01/11/2024 10:32 AM EST Department of Anesthesiology Post-procedure Note Patient: Erick Chacon Procedure Summary Date: 01/11/24 Room / Location: [facility] MA[facility] OR Anesthesia Start: 826 Anesthesia Stop: 1031 Procedure: ADJ.TISSUE TRANSFER, REARRANGEMENT, 10.1 TO 30 SQ.CM, GENITALIA (WRVU 10.83) (Perineum) Diagnosis: Acquired buried penis (Acquired buried penis) Surgeons: Desean Coronado MD Responsible Provider: Rajendra Osorio CRNA Anesthesia Type: general ASA Status: 3 All Anesthesia Providers: JOSE Independent: Rajendra Osorio CRNA Vitals Value Taken Time BP 124/85 01/11/24 1030 Temp 36.2 ??C (97.2 ??F) 01/11/24 1024 Pulse 93 01/11/24 1031 Resp 24 01/11/24 1031 SpO2 94 % 01/11/24 1031 Pain Level Vitals shown include unfiled device data. Patient Location: PACU/[facility] Level of Consciousness: Conscious but Sleepy Pain Management: Satisfactory Analgesia PONV: None Cardiovascular Status: At Baseline Respiratory Status: At Baseline Postoperative Fluid Status: Intravascular EUvolemia Possible Anesthetic Complications: NONE apparent at time of evaluation Final Primary Anesthesia Type: General (The anesthetic type performed was the same as planned.) Comments: Please see PACU flowsheet for VS. Report and care to RN * Anesthesia Preprocedure Evaluation - Rajendra Osorio CRNA - 01/11/2024 7:42 AM EST Pre-Anesthesia Evaluation for: Erick Chacon a 38 y.o. male. 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 Right lumbar radiculopathy 11/14/2014 Lower back pain 11/14/2014 Left lumbar radiculopathy 08/25/2014 Past Medical History: Diagnosis Date Anxiety Arthritis Cardiac disease Dry mouth Headache(784.0) Hypertension Neuromuscular disorder Trauma Past Surgical History: Procedure Laterality Date XR FLUORO GUIDED LUMBAR PUNCTURE N/A 04/06/2018 XR Fluoro Lumbar Puncture 04/06/2018 Isabel Echols MD [facility] RAD XRAY Social History Tobacco Use Smoking status: Former Current packs/day: 0.00 Types: Cigarettes Quit date: 08/20/2018 Years since quittin.3 Smokeless tobacco: Never Tobacco comments: Stopped smoking about two months (documented on 08/30/23) Substance Use Topics Alcohol use: Not Currently Social History Substance and Sexual Activity Drug Use No No Known Allergies Medications: MAR and/or home medications have been reviewed. Physical Exam: Preprocedure Vitals Current as of 01/11/24 0742 BP: 139/92 Pulse: 70 Resp: 18 SpO2: 95 Temp: 36.4 ??C (97.6 ??F) Height: 175.3 cm (5' 9.02) (01/11/24) Weight: 103.4 kg (228 lb) (01/11/24) BMI: 33.65 IBW: 70.7 kg (155 lb 15.1 oz) Last edited 01/11/24 0711 by Airway Assessment: Mallampati: III TM distance: >3 FB Neck ROM: full Cardiovascular Assessment: Rhythm: regular Rate: normal Pulmonary Assessment: unlabored breathing Dental Assessment: Misc Assessment: Patient is wearing No contact(s). IV access: Peripheral line Last Filed Perioperative Cognitive Screening None Anesthesia Plan: ASA 3 general, with a(n) intravenous induction 38 yo with MS- ble sx, HLD, HTN, CAD, depression, asthma BMI 33.6. Pt reports no sob, cp, difficulty swallowing, and that the ble sx are subjectively stable. Discussed r/b/a of GETA, including MS flare in next 30 days or acutely. Pt agrees to proceed given risks. Informed Consent: Anesthetic plan and risks discussed with patient. Anesthesia Screening documented in this encounter Miscellaneous Notes * Addendum Note - Rajendra Osorio CRNA - 01/11/2024 12:14 PM EST Addendum created 01/11/24 1214 by Rajendra Osorio CRNA Intraprocedure Event edited documented in this encounter Plan of Treatment Upcoming Encounters Date Type Department Care Team (Late st Contact Info) Description 01/19/2024 1:00 PM EST Office Visit Urology at [facility] [address] [place] [phone] Desean Coronado MD [facility] [place] [address] 01/22/2024 12:30 PM EST Office Visit Neurosurgery at [facility] [address] [facility] [place] [address] Hema Escalante MD [facility] [place] [address] Liudmila Oates PA [facility] [place] [address] 02/01/2024 12:00 PM EST [place] [phone] Georgette Monae PA [facility] [place] [address] 05/30/2024 10:30 AM EDT [place] [phone] documented as of this encounter Goals Goal Patient Goal Type Associated Problems Recent Progress Patient-Stated? Author prevention of MS relapse Patient Facing Action Plan Dionicio Almeida, [facility] documented as of this encounter Visit Diagnoses Not on filedocumented in this encounter Administered Medications Inactive Administered Medications - up to 3 most recent administrations Medication Order MAR Action Action Date Dose Rate Site ceFAZolin (Ancef) 2 g vial attach to sodium chloride 0.9% 100 mL Mini-Bag Plus 2 g, Intravenous, ONCE, 1 dose, On Serina 01/11/24 at 0745, Administer over 30 Minutes, Redose every 3 hours if CrCl is greater than 20. Redose every 8 hours if CrCl is less than 20., Day of Surgery (Day of Procedure), Indication for (Active or Suspected): Prophylaxis New Bag 01/11/2024 8:38 AM EST 2 g dexAMETHasone (Decadron) injection Intravenous, PRN, Starting on Serina 01/11/24 at 0838, Until Serina 01/11/24 at 1032, Anesthesia Intra-op, Routine Given 01/11/2024 8:38 AM EST 8 mg fentaNYL (pf) (50 mcg/mL) multi-dose injection Intravenous, PRN, Starting on Serina 01/11/24 at 0832, Until Serina 01/11/24 at 1032, Anesthesia Intra-op, Routine Given 01/11/2024 8:32 AM EST 100 mcg lactated ringers infusion 1,000 mL, Intravenous, CONTINUOUS, Starting on Serina 01/11/24 at 0830, Until Serina 01/11/24 at 1149, Day of Surgery (Day of Procedure) New Bag 01/11/2024 8:27 AM EST midazolam (pf) (Versed) (1 mg/mL) injection Intravenous, PRN, Starting on Serina 01/11/24 at 0827, Until Serina 01/11/24 at 1032, Anesthesia Intra-op, Routine Given 01/11/2024 8:27 AM EST 2 mg ondansetron (pf) (Zofran) (2 mg/mL) injection Intravenous, PRN, Starting on Serina 01/11/24 at 0838, Until Serina 01/11/24 at 1032, Anesthesia Intra-op, Routine Given 01/11/2024 8:38 AM EST 4 mg propofoL (Diprivan) (10 mg/mL) infusion Intravenous, CONTINUOUS PRN, Starting on Serina 01/11/24 at 0843, Until Serina 01/11/24 at 1032, Anesthesia Intra-op, Routine New Bag 01/11/2024 8:43 AM EST 15 mcg/kg/min 7.542 mL/hr propofoL (Diprivan) 10 mg/mL bolus injection (Anesthesia) Intravenous, PRN, Starting on Serina 01/11/24 at 0832, Until Serina 01/11/24 at 1032, Anesthesia Intra-op Given 01/11/2024 8:32 AM EST 250 mg rocuronium (Zemuron) 10 mg/mL injection Intravenous, PRN, Starting on Serina 01/11/24 at 0832, Until Serina 01/11/24 at 1032, Anesthesia Intra-op, Routine Given 01/11/2024 8:32 AM EST 50 mg sugammadex (Bridion) 100 mg/mL injection Intravenous, PRN, Starting on Serina 01/11/24 at 0928, Until Serina 01/11/24 at 1032, Anesthesia Intra-op, Routine Given 01/11/2024 9:28 AM EST 200 mg documented in this encounter Care Teams Cooker Soda Relationship Specialty Start Date End Date Lamont Owusu MD [address] [place] [address] PCP - General Family Medicine 02/10/21 documented as of this encounter
--- OUTSIDE RECORDS SUMMARY | 2024-01-15 20:00 | XMS_ITS | Encounter Summary ---
Author Organization [facility] [place] [address] Care Team Providers Care Crime Specialist Name Role Phone Lamont Owusu MD Primary Care Provider [phone] [phone] Encounter Details Date Type Department Care Team (Latest Contact Info) Description 11/30/2023 4:00 PM EDT Laboratory Appointment Lab 3L [place] [phone] Hypogonadism in male; Abnormal results of function [...] 1:00 PM EST Office Visit Urology at [facility] [address] [place] [phone] Desean Coronado MD [facility] [place] [address] 01/22/2024 12:30 PM EST Office Visit Neurosurgery at [facility] [place] [address] [place] [address] Liudmila [place] [address] 02/01/2024 12:00 PM EST [place] [phone] Georgette Monae PA [facility] [place] [address] 05/30/2024 10:30 AM EDT [place] [phone] documented as of this encounter Goals Goal Patient Goal Type Associated Problems Recent Progress Patient-Stated? Author prevention of MS relapse Patient Facing Action Plan Dionicio Almeida, [facility] documented as of this encounter Procedures Procedure Name Priority Date/Time Associated Diagnosis Comments ESTRADIOL Routine 11/30/2023 10:46 AM EDT Hypogonadism in male CBC (WITH DIFF) Routine 11/30/2023 10:46 AM EDT Hypogonadism in male TESTOSTERONE, TOTAL Routine 11/30/2023 1 0:46 AM EDT Hypogonadism in male PSA (ULTRASENSITIVE) Routine 11/30/2023 10:46 AM EDT Hypogonadism in male Abnormal results of function studies of other organs and systems documented in this encounter Results * Estradiol (11/30/2023 10:46 AM EDT) Estradiol 9 11 to 43 pg/mL pg/mL 11/30/2023 11:57 AM EDT [facility] Blood VENOUS BLOOD SPECIMEN / Unknown Venipuncture / Unknown 11/30/2023 10:46 AM EDT 11/30/2023 10:46 AM EDT Desean Coronado MD CHEMISTRY ORDERABLES Performing Organization Address [facility] Co de Phone Number [facility] [place] [address] * PSA (Ultrasensitive) (11/30/2023 10:46 AM EDT) Prostate Specific Antigen (Ultrasensitive) 0.55 0.00-4.00 ng/mL ng/ml 11/30/2023 11:53 AM EDT [facility] Comment:The reference interv al (0 [...] Coronado MD CHEMISTRY ORDERABLES Performing Organization Address [facility] Co de Phone Number [facility] [place] [address] * Testosterone, total (11/30/2023 10:46 AM EDT) Testosterone 5.29 2.49 - 8.36 ng/ml 11/30/2023 2:00 PM EDT [facility] Blood VENOUS BLOOD SPECIMEN / Unknown Venipuncture / Unknown 11/30/2023 10:46 AM EDT 11/30/2023 10:46 AM EDT Desean Coronado MD CHEMISTRY ORDERABLES Performing Organization Address [facility] Co de Phone Number [facility] [place] [address] * (ABNORMAL) CBC (with Diff) (11/30/2023 10:46 AM EDT) White Blood Cell 6.38 4.00 - 9.50 x10(3)/mc L 11/30/2023 12:[address] [facility] Red Blood Cell 5.68(H) 4.58 - 5.54 x10(6)/mc L 11/30/2023 12:[address] [facility] Hemoglobin 16.4 13.7 - 16.5 g/dL 11/30/2023 12:[address] [facility] Hematocrit 49.2(H) 40.5 - 48.5 % 11/30/2023 12:[address] [facility] Mean Cell Volume 86.6 82.9 - 93.1 fL 11/30/2023 12:[address] [facility] Mean Cell Hemoglobin 28.9 27.5 - 32.1 pg 11/30/2023 12:[address] [facility] Mean Cell Hemoglobin Concentration 33.3 32.0 - 35.7 g/dL 11/30/2023 12:[address] [facility] Platelet 241 145 - 357 x10(3)/mc L 11/30/2023 12:[address] [facility] Mean Platelet Volume 10.7 7.6 - 12.9 fL 11/30/2023 12:[address] [facility] RDW Standard Deviation 39.0 36.0 - 45.0 fL 11/30/2023 12:[address] [facility] RDW coefficient of variation 12.6 11.4 - 13.8 % 11/30/2023 12:[address] [facility] NRBC% auto 0.0 % 11/30/2023 12:[address] [facility] NRBC Absolute <0.01 <0.01 x10(3)/mc L 11/30/2023 12:[address] [facility] Neutrophil % 58.6 % 11/30/2023 12:15 PM EDT [facility] Neutrophil Absolute (ANC) - Automated 3.74 1.70 - 6.10 x10(3)/mc L 11/30/2023 12:15 PM EDT [facility] Lymph % 30.6 % 11/30/2023 12:15 PM EDT [facility] Lymph Absolute 1.95 0.90 - 3.20 x10(3)/mc L 11/30/2023 12:15 PM EDT [facility] Monocyte % 7.7 % 11/30/2023 12:15 PM EDT [facility] Monocyte Absolute 0.49 0.30 - 0.90 x10(3)/mc L 11/30/2023 12:15 PM EDT [facility] Eos % 1.9 % 11/30/2023 12:15 PM EDT [facility] Eos Absolute 0.12 0.00 - 0.40 x10(3)/mc L 11/30/2023 12:15 PM EDT [facility] Basophil % 0.6 % 11/30/2023 12:15 PM EDT [facility] Baso Absolute 0.04 0.00 - 0.10 x10(3)/mc L 11/30/2023 12:15 PM EDT [facility] Immature Gran % 0.6 % 12:15 PM EDT [facility] Immature Gran Absolute 0.04 0.00 - 0.04 x10(3)/mc L 11/30/2023 12:15 PM EDT [facility] Blood VENOUS BLOOD SPECIMEN / Unknown Venipuncture / Unknown 11/30/2023 10:46 AM EDT 11/30/2023 10:46 AM EDT Desean Coronado MD HEMATOLOGY ORDERABLE S [facility] [place] [address] documented in this encounter Visit Diagnoses Diagnosis Hypogonadism in male Abnormal results of function studies of other organs and systems documented in this encounter Care Teams Crime Specialist Relationship Specialty Start Date End Date Lamont Owusu MD [address] [place] [address] PCP - General Family Medicine 02/10/21 documented as of this encounter
--- OUTSIDE RECORDS SUMMARY | 2024-01-15 20:00 | XMS_ITS | Encounter Summary ---
Author Organization [facility] Melinda me[address] [place] [address] Care Team Providers Care Piercing Artist Name Role Phone Lamont Owusu MD Primary Care Provider [phone] Reason for Visit * Reason Onset Date Comments Medication Refill 11/20/2023 Encounter Details Date Type Department Care Team (Late st Contact Info) Description 11/20/2023 Refill [place] [address] Desean Coronado MD [facility] [place] [address] Social History Tobacco Use Types Packs/Day Years [...] encounter Miscellaneous Notes * Telephone Encounter - Selina Sandoval I - 11/20/2023 10:18 AM EDT Patient calling stating that the pharmacy does not have his prescription and he would like the needles sent to his home address on file if possible. documented in this encounter Plan of Treatment Upcoming Encounters Date Type Department Care Team (Late st Contact Info) Description 01/19/2024 1:00 PM EST Office Visit Urology at [facility] [address] [place] [phone] Desean Coronado MD [facility] [place] [address] 01/22/2024 12:30 PM EST Office Visit Neurosurgery at [facility] [address] [place] [address] Hema Escalante MD [address] [facility] [place] [address] Liudmila Oates PA [address] [facility] [place] [address] 02/01/2024 12:00 PM EST Office [place] [address] Georgette Monae PA [facility] [place] [address] 05/30/2024 10:30 AM EDT Appointment [place] [address] documented as of this encounter Goals Goal Patient Goal Type Associated Problems Recent Progress Patient-Stated? Author prevention of MS relapse Patient Facing Action Plan Dionicio Almeida, [facility] documented as of this encounter Visit Diagnoses Not on filedocumented in this encounter Care Teams Piercing Artist Relationship Specialty Start Date End Date Lamont Owusu MD [address] [place] [address] [address] [place] [address] PCP - General Family Medicine 02/10/21 documented as of this encounter
--- OUTSIDE RECORDS SUMMARY | 2024-01-15 20:00 | XMS_ITS | Encounter Summary ---
Author Organization [facility] Address [facility] [place] [address] Care Team Providers Care Fruit Harvester Name Role Phone Lamont Owusu MD Primary Care Provider [phone] Encounter Details Date Type Department Care Team (Late st Contact Info) Description 01/04/2024 1:30 PM EST Telephone Pre Admission Testing at [address] [phone] Social History Tobacco Use Types Packs/Day Years [...] as of this encounter Progress Notes * Ana Ruelas RN - 01/04/2024 1:29 PM EST EXPOSURE: Have you been in contact with anyone suspected of or confirmed to have COVID-19 or any other communicable illness in the PAST 10 DAYS? No INFECTIOUS DISEASE SCREENING: In the past 10 days, have you had any of the following symptoms: [] Fever (subjective or documented fever) [] Chills [] Cough [] Shortness of breath or difficulty breathing [] Fatigue [] Muscle or body aches [] Headache [] New loss of taste or smell [] Sore throat [] Nausea or vomiting [] Diarrhea [x]NONE OF THE ABOVE Tested positive for Covid (within the past 6 weeks): No Upper respiratory symptoms: No Lower respiratory symptoms: No Other symptoms: no OTHER SCREENING Anticipated Disposition from PACU: Home/Same Day Discharge Transportation Plan To and From Hospital: Christianne Velasco Current Living Situation and Caregiver Support (Name, Relationship and Level of Engagement): Lives with mom Patient perceived Barriers to Discharge: None documented in this encounter Plan of Treatment Upcoming Encounters Date Type Department Care Team (Late st Contact Info) Description 01/19/2024 1:00 PM EST Office Visit Urology at [facility] [address] [place] [phone] Desean Coronado MD [facility] [place] [address] 01/22/2024 12:30 PM EST Office Visit Neurosurgery at [facility] [address] [place] [address] Hema Escalante MD [address] [facility] [place] [address] Liudmila Oates PA [address] [facility] [place] [address] 02/01/2024 12:00 PM EST [place] [phone] Georgette Monae PA [facility] [place] [address] 05/30/2024 10:30 AM EDT [place] [phone] documented as of this encounter Goals Goal Patient Goal Type Associated Problems Recent Progress Patient-Stated? Author prevention of MS relapse Patient Facing Action Plan Dionicio Almeida, [facility] documented as of this encounter Visit Diagnoses Not on filedocumented in this encounter Care Teams Fruit Harvester Relationship Specialty Start Date End Date Lamont Owusu MD [address] [place] [address] PCP - General Family Medicine 02/10/21 documented as of this encounter
--- OUTSIDE RECORDS SUMMARY | 2024-01-15 20:01 | XMS_ITS | Encounter Summary ---
Author Organization [facility] Address [facility] [place] [address] Care Team Providers Care Life Science Research Assistant Name Role Phone Lamont Owusu MD Primary Care Provider [phone] Encounter Details Date Type Department Care Team (Late st Contact Info) Description 09/12/2023 [place] [address] Erick York III, MD [facility] [place] [address] Social History Tobacco Use Types Packs/Day Years [...] 1:00 PM EST Office Visit Urology at [facility] [address] [place] [phone] Desean Coronado MD [facility] [place] [address] 01/22/2024 12:30 PM EST Office Visit Neurosurgery at [facility] [address] [place] [address] Hema Escalante MD [facility] [place] [address] Liudmila Oates PA [address] [place] [address] 02/01/2024 12:00 PM EST Office [place] [phone] Georgette Monae PA [facility] [place] [address] 05/30/2024 10:30 AM EDT [place]ointment [place] [phone] documented as of this encounter Goals Goal Patient Goal Type Associated Problems Recent Progress Patient-Stated? Author prevention of MS relapse Patient Facing Action Plan Dionicio Almeida, [facility] documented as of this encounter Visit Diagnoses Not on filedocumented in this encounter Care Teams Life Science Research Assistant Relationship Specialty Start Date End Date Lamont Owusu MD [address] [place] [address] PCP - General Family Medicine 02/10/21 documented as of this encounter
--- OUTSIDE RECORDS SUMMARY | 2024-01-15 20:01 | XMS_ITS | Encounter Summary ---
Author Organization [facility] Address [facility] [place] [address] Care Team Providers Care Airport Ramp Supervisor Name Role Phone Lamont Owusu MD Primary Care Provider [phone] Encounter Details Date Type Department Care Team (Late st Contact Info) Description 09/04/2023 Orders [place] [address] Erick York III, MD [facility] [place] [address] Multiple sclerosis Social History Tobacco Use Types Packs/Day Years [...] 1:00 PM EST Office Visit Urology at [facility] [address] [place] [phone] Desean Coronado MD [facility] [place] [address] 01/22/2024 12:30 PM EST Office Visit Neurosurgery at [facility] [place] [address] [place] [address] Liudmila [place] [address] 02/01/2024 12:00 PM EST Office [place] [phone] Georgette Monae PA [facility] [place] [place] [address] 05/30/2024 10:30 AM EDT Appointment [place] [phone] documented as of this encounter Goals Goal Patient Goal Type Associated Problems Recent Progress Patient-Stated? Author prevention of MS relapse Patient Facing Action Plan Dionicio Almeida, [facility] documented as of this encounter Results * QuantiFERON-TB Gold (09/11/2023 9:31 AM EDT) Quantiferon Nil 0.028 IU/mL [facility] QFT TB Ag1-Nil 0.017 IU/mL [facility] QFT TB Ag2-Nil 0.052 IU/mL [facility] Quantiferon Mitogen-Nil 9.972 IU/mL [facility] Quantiferon-TB Gold Negative Negative [facility] Quantiferon Tb Interp M. tuberculosis infection NOT likely A negative specimen should have a TB1 Ag minus Nil value and TB2 Ag minus Nil value of less than 0.35 IU/mL OR a TB1 Ag minus Nil or TB2 Ag minus Nil value greater than or equal to 0.35 IU/mL AND a TB Ag minus Nil value from the same tube of less than 25% of the Nil value. A negative specimen must also have a mitogen minus Nil value greater than or equal to 0.5 IU/mL. A negative QFT-Plus result does not preclude the possibility of M. tuberculosis infection. False negative results can occur due to stage of infection (specimen obtained prior to the development of immune response), co-morbid conditions which affect immune function, or other immunological factors. [facility] Blood 09/11/2023 9:31 AM EDT 09/12/2023 7:33 AM EDT Narrative Resulting Agency Comment Spec In Lab Erick York III, MD CHEMISTRY ORDERAB LES [facility] [place] [address] documented in this encounter Visit Diagnoses Diagnosis Multiple sclerosis documented in this encounter Care Teams Airport Ramp Supervisor Relationship Specialty Start Date End Date Lamont Owusu MD [address] [place] [address] PCP - General Family Medicine 02/10/21 documented as of this encounter
--- OUTSIDE RECORDS SUMMARY | 2024-01-15 20:01 | XMS_ITS | Encounter Summary ---
Author Organization [facility] [place] [address] Care Team Providers Care Security Intern Name Role Phone Lamont Owusu MD Primary Care Provider [phone] Reason for Referral * Diagnostic Test (Routine) - Closed Specialty Diagnoses / Procedures Referred By Contac t Referred To Contact Radiology Diagnoses Multiple sclerosis Procedures MRI Thoracic Spine wo Contrast (Generic) Erick York III, MD [facility] [place] [address] [place] [address] Referral ID Status Reason Start Date Expiration Date V isits Requested Visits Authorized [id number] Closed Specialty Service Requested 05/25/2023 11/23/2024 1 1 * Diagnostic Test (Routine) - Closed Specialty Diagnoses / Procedures Referred By Contac t Referred To Contact Radiology Diagnoses Multiple sclerosis Procedures MRI Cervical Spine wo Contrast (Generic) Erick York III, MD [facility] [place] [address] [place] [address] Referral ID Status Reason Start Date Expiration Date V isits Requested Visits Authorized [id number] Closed Specialty Service Requested 05/25/2023 11/23/2024 1 1 * Diagnostic Test (Routine) - Closed Specialty Diagnoses / Procedures Referred By Mallorie swift Referred To Contact Radiology Diagnoses Multiple sclerosis Procedures MRI Brain wo Contrast Erick York III, MD [facility] [place] [address] [place] [address] Referral ID Status Reason Start Date Expiration Date V isits Requested Visits Authorized [id number] Closed Specialty Service Requested 05/25/2023 11/23/2024 1 1 Reason for Visit * Diagnostic Test (Routine) - Closed Specialty Diagnoses / Procedures Referred By Mallorie swift Referred To Contact Radiology Diagnoses Multiple sclerosis Procedures MRI Brain wo Contrast Erick York III, MD [facility] [place] [address] [place] [address] Referral ID Status Reason Start Date Expiration Date V isits Requested Visits Authorized [id number] Closed Specialty Service Requested 05/25/2023 11/23/2024 1 1 Encounter Details Date Type Department Care Team (Latest Contact Info) Description 06/16/2023 1:04 PM EDT - 06/16/2023 11:59 PM EDT Hospital [place] [address] Erick York III, MD [facility] [place] [address] Multiple sclerosis Discharge Disposition: Home Social History Tobacco Use Types Packs/Day Years Used Date Smoking Tobacco: Every Day Cigarettes Last attempted to quit: 08/20/2018 Smokeless Tobacco: Never Alcohol Use Standard Drinks/Week Comments Not Currently 0 (1 standard drink = 0.6 oz pur e alcohol) Sex and Gender Information Value Date Recorded Sex Assigned at Male 06/03/2020 7:58 PM EDT Gender Identity Male 02/26/2022 11:00 AM EST Sexual Orientation Straight 06/03/2020 7: 58 PM EDT documented as of this encounter Medications at Time of Discharge Medication Sig Dispensed Refills Start Date End Date naloxone (Narcan) 4 mg/actuation nasal spray Q2M 09/08/2020 cholecalciferol, Vitamin D3, 25 mcg (1,000 unit) [...] by mouth 3 times daily. 0 10/17/2014 syringe with needle, disposable, 3 mL 22 gauge x 1 Syringe Use 1 syringe weekly for IM testosterone injection 12 each 3 06/15/2023 11/20/2023 anastrozole (Arimidex) 1 mg tablet Take 1 tablet by mouth daily. 12 tablet 3 06/06/2023 08/15/2023 baclofen (Lioresal) 10 mg tabletIndications:Mu scle spasms of both lower extremities Take 1 tablet by mouth 3 times daily for 180 days. 90 tablet 5 05/25/2023 11/29/2023 testosterone cypionate (DepoTESTOSTERONE Cypionate) (200mg/mL) injectionIndications :Hypogonadism in male Inject 1 mL into the muscle every 14 days for 90 days. 6 mL 04/06/2023 06/27/2023 Butrans 15 mcg/hour Patch Weekly PLACE 1 PATCH ON THE SKIN EVERY 7 DAYS 08/30/2023 aspirin 325 mg Tablet Take 325 mg by mouth every 6 hours as needed for Pain. 01/11/2024 documented as of this encounter Plan of Treatment Upcoming Encounters Date Type Department Care Team (Late st Contact Info) Description 01/19/2024 1:00 PM EST Office Visit Urology at [facility] [address] [place] [phone] Desean Coronado MD [facility] [place] [address] 01/22/2024 12:30 PM EST Office Visit Neurosurgery at [facility] [place] [address] Hema Escalante MD [address] [facility] [address] [facility] [place] [address] Liudmila Oates PA [address] [facility] [place] [address] 02/01/2024 12:00 PM EST Office [place] [address] Georgette Monae PA [facility] [place] [address] 05/30/2024 10:30 AM EDT Appointment [place] [phone] documented as of this encounter Goals Goal Patient Goal Type Associated Problems Recent Progress Patient-Stated? Author prevention of MS relapse Patient Facing Action Plan Dionicio Almeida, [facility] documented as of this encounter Procedures Procedure Name Priority Date/Time Associated Diagnosis Comments MRI THORACIC SPINE WITHOUT CONTRAST Routine 06/16/2023 2:25 PM EDT Multiple sclerosis MRI CERVICAL SPINE WO CONTRAST Routine 06/16/2023 2:25 PM EDT Multiple sclerosis MRI BRAIN WO CONTRAST Routine 06/16/2023 2:25 PM EDT Multiple sclerosis documented in this encounter Results * MRI Thoracic Spine wo Contrast (Generic) (06/16/2023 2:25 PM EDT) [employer] Signature WORKSTATION ID [id number] RAD Anatomical Region Laterality Modality T-spine Magnetic Resonan ce Impressions 06/16/2023 3:10 PM EDT 1. ??Unchanged demyelinating cervical cord lesions. 2. ??No thoracic cord lesions. 3. ??Unchanged fluid-signal structure under the right hilum in the region of the pericardium, favor pericardial fluid or cyst. Thank you for letting us participate in the care of this patient. ??If you are a health care provider and have any questions regarding this report, please contact the number below. ??For patients who have questions please contact the health managed care nurse that requested your imaging first. ? Electronically signed by: Alba Oliver MD, [facility] ([phone]), at 06/16/2023 3:10 PM Narrative 06/16/2023 3:10 PM EDT EXAMINATION: MRI CERVICAL SPINE WO CONTRAST (GENERIC), MRI THORACIC SPINE WO CONTRAST (GENERIC) CLINICAL HISTORY: Multiple sclerosis, monitor G35, Multiple sclerosis TECHNIQUE: MRI of the cervical and thoracic spine performed without intravenous contrast administration. COMPARISON: MRI cervical and thoracic spine November 16, 2019. CT of the thoracic spine April 03, 2018. FINDINGS: Cervical spine: T2 hyperintense lesion along the right dorso-lateral spinal cord at C2-3; right dorsal cord at C3-4: No midline dorsal cord from C5-C6 to the inferior C6 level with accompanying cord volume loss are unchanged. No new cervical cord lesions. Vertebral body height, alignment and marrow signal are normal. No significant disc bulge or canal stenosis. Uncovertebral hypertrophy contributes to mild foraminal stenosis bilaterally at C3-4, C4-5 and C6-7, and on the left at C5-6. Thoracic spine: A right paracentral disc protrusion indenting the right ventral spinal cord at T8-9 be slightly decreased. There is no associated cord signal abnormality. Otherwise no abnormal spinal cord signal, caliber or contour. The conus terminates in normal position at the mid L1 level. Vertebral body height, alignment and marrow signal are preserved. No other disc bulges or significant canal or foraminal stenosis. T2 hyperintense and T1 hypointense structure at the right anteromedial lung base, and to the right hilum and in the region of the pericardium, is unchanged back to 2015. Procedure Note Alba Oliver MD - 06/16/2023 EXAMINATION: MRI CERVICAL SPINE WO CONTRAST (GENERIC), MRI THORACIC SPINEWO CONTRAST (GENERIC) CLINICAL HISTORY: Multiple sclerosis, monitor G35, Multiple sclerosis TECHNIQUE: MRI of the cervical and thoracic spine performed without intravenouscontrast administration. COMPARISON: MRI cervical and thoracic spine November 16, 2019. CT of the thoracicspine April 03, 2018. FINDINGS: Cervical spine: T2 hyperintense lesion along the right dorso-lateral spinal cord at C2-3;right dorsal cord at C3-4: No midline dorsal cord from C5-C6 to the inferior R1mrehm with accompanying cord volume loss are unchanged. No new cervical cordlesions. Vertebral body height, alignment and marrow signal are normal. Nosignificant disc bulge or canal stenosis. Uncovertebral hypertrophy contributes tomild foraminal stenosis bilaterally at C3-4, C4-5 and C6-7, and on the left atC5-6. Thoracic spine: A right paracentral disc protrusion indenting the right ventral spinalcord at T8-9 be slightly decreased. There is no associated cord signalabnormality. Otherwise no abnormal spinal cord signal, caliber or contour. The conus terminates in normal position at the mid L1 level. Vertebral body height, alignment and marrow signal are preserved. No otherdisc bulges or significant canal or foraminal stenosis. T2 hyperintense and T1 hypointense structure at the right anteromediallung base, and to the right hilum and in the region of the pericardium, isunchanged back to 2015. IMPRESSION 1. Unchanged demyelinating cervical cord lesions. 2. No thoracic cord lesions. 3. Unchanged fluid-signal structure under the right hilum in the regionof the pericardium, favor pericardial fluid or cyst. Thank you for letting us participate in the care of this patient. If youare a health care provider and have any questions regarding this report,please contact the number below. For patients who have questions please contactthe health managed care nurse that requested your imaging first. Electronically signed by: Alba Oliver MD, [facility]([phone]), at 06/16/2023 3:10 PM Erick York III, MD IMG MRI ORDERABLE S * MRI Cervical Spine wo Contrast (Generic) (06/16/2023 2:25 PM EDT) WORKSTATION ID [id number] RAD Anatomical Region Laterality Modality C-spine Magnetic Resonan ce Impressions 06/16/2023 3:10 PM EDT 1. ??Unchanged demyelinating cervical cord lesions. 2. ??No thoracic cord lesions. 3. ??Unchanged fluid-signal structure under the right hilum in the region of the pericardium, favor pericardial fluid or cyst. Thank you for letting us participate in the care of this patient. ??If you are a health care provider and have any questions regarding this report, please contact the number below. ??For patients who have questions please contact the health managed care nurse that requested your imaging first. ? Electronically signed by: Alba Oliver MD, [facility] ([phone]), at 06/16/2023 3:10 PM Narrative 06/16/2023 3:10 PM EDT EXAMINATION: MRI CERVICAL SPINE WO CONTRAST (GENERIC), MRI THORACIC SPINE WO CONTRAST (GENERIC) CLINICAL HISTORY: Multiple sclerosis, monitor G35, Multiple sclerosis TECHNIQUE: MRI of the cervical and thoracic spine performed without intravenous contrast administration. COMPARISON: MRI cervical and thoracic spine November 16, 2019. CT of the thoracic spine April 03, 2018. FINDINGS: Cervical spine: T2 hyperintense lesion along the right dorso-lateral spinal cord at C2-3; right dorsal cord at C3-4: No midline dorsal cord from C5-C6 to the inferior C6 level with accompanying cord volume loss are unchanged. No new cervical cord lesions. Vertebral body height, alignment and marrow signal are normal. No significant disc bulge or canal stenosis. Uncovertebral hypertrophy contributes to mild foraminal stenosis bilaterally at C3-4, C4-5 and C6-7, and on the left at C5-6. Thoracic spine: A right paracentral disc protrusion indenting the right ventral spinal cord at T8-9 be slightly decreased. There is no associated cord signal abnormality. Otherwise no abnormal spinal cord signal, caliber or contour. The conus terminates in normal position at the mid L1 level. Vertebral body height, alignment and marrow signal are preserved. No other disc bulges or significant canal or foraminal stenosis. T2 hyperintense and T1 hypointense structure at the right anteromedial lung base, and to the right hilum and in the region of the pericardium, is unchanged back to 2015. Procedure Note Alba Oliver MD - 06/16/2023 EXAMINATION: MRI CERVICAL SPINE WO CONTRAST (GENERIC), MRI THORACIC SPINEWO CONTRAST (GENERIC) CLINICAL HISTORY: Multiple sclerosis, monitor G35, Multiple sclerosis TECHNIQUE: MRI of the cervical and thoracic spine performed without intravenouscontrast administration. COMPARISON: MRI cervical and thoracic spine November 16, 2019. CT of the thoracicspine April 03, 2018. FINDINGS: Cervical spine: T2 hyperintense lesion along the right dorso-lateral spinal cord at C2-3;right dorsal cord at C3-4: No midline dorsal cord from C5-C6 to the inferior C2jqcsu with accompanying cord volume loss are unchanged. No new cervical cordlesions. Vertebral body height, alignment and marrow signal are normal. Nosignificant disc bulge or canal stenosis. Uncovertebral hypertrophy contributes tomild foraminal stenosis bilaterally at C3-4, C4-5 and C6-7, and on the left atC5-6. Thoracic spine: A right paracentral disc protrusion indenting the right ventral spinalcord at T8-9 be slightly decreased. There is no associated cord signalabnormality. Otherwise no abnormal spinal cord signal, caliber or contour. The conus terminates in normal position at the mid L1 level. Vertebral body height, alignment and marrow signal are preserved. No otherdisc bulges or significant canal or foraminal stenosis. T2 hyperintense and T1 hypointense structure at the right anteromediallung base, and to the right hilum and in the region of the pericardium, isunchanged back to 2015. IMPRESSION 1. Unchanged demyelinating cervical cord lesions. 2. No thoracic cord lesions. 3. Unchanged fluid-signal structure under the right hilum in the regionof the pericardium, favor pericardial fluid or cyst. Thank you for letting us participate in the care of this patient. If youare a health care provider and have any questions regarding this report,please contact the number below. For patients who have questions please contactthe health managed care nurse that requested your imaging first. Electronically signed by: Alba Oliver MD, [facility]([phone]), at 06/16/2023 3:10 PM Erick York III, MD [facility] MRI ORDERABLE S * MRI Brain wo Contrast (06/16/2023 2:25 PM EDT) WORKSTATION ID [id number] RAD Anatomical Region Laterality Modality Head Magnetic Resonan ce Impressions 06/16/2023 2:35 PM EDT Small left frontal juxtacortical and left medial parietal subcortical lesions are either new or increased conspicuity since the prior study, possibly due to differences in technique. Otherwise stable supratentorial white matter lesions. Thank you for letting us participate in the care of this patient. ??If you are a health care provider and have any questions regarding this report, please contact the number below. ??For patients who have questions please contact the health managed care nurse that requested your imaging first. ? Electronically signed by: Alba Oliver MD, [facility] ([phone]), at 06/16/2023 2:35 PM Narrative 06/16/2023 2:35 PM EDT EXAMINATION: MRI BRAIN WO CONTRAST CLINICAL HISTORY: Multiple sclerosis, monitor G35, Multiple sclerosis TECHNIQUE: MRI of the brain performed without intravenous contrast administration. COMPARISON: MRI brain November 11, 2019 FINDINGS: A radiating T2 hyperintense lesion in the right frontal rosado radiata a few small radiating periventricular white matter lesions, most prominent surrounding the left occipital horn, unchanged. Small left frontal juxtacortical lesion (series 3, image 107) and a punctate left medial parietal subcortical lesion (series 3, image 97) are new or increased in conspicuity, possibly due to differences in technique. There is no midline shift, mass effect, hydrocephalus or extra-axial collection. No diffusion restricted lesions. Expected intracranial vascular flow voids are preserved. 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 Pituitary gland is normal in size and signal. No aggressive osseous lesions. Small right posterior maxillary sinus callosal thickening. Visible paranasal sinuses are otherwise clear. Unchanged moderate left mastoid fluid. Procedure Note Alba Oliver MD - 06/16/2023 EXAMINATION: MRI BRAIN WO CONTRAST CLINICAL HISTORY: Multiple sclerosis, monitor G35, Multiple sclerosis TECHNIQUE: MRI of the brain performed without intravenous contrast administration. COMPARISON: MRI brain November 11, 2019 FINDINGS: A radiating T2 hyperintense lesion in the right frontal rosado radiata afew small radiating periventricular white matter lesions, most prominentsurrounding the left occipital horn, unchanged. Small left frontal juxtacorticallesion (series 3, image 107) and a punctate left medial parietal subcorticallesion (series 3, image 97) are new or increased in conspicuity, possibly dueto differences in technique. There is no midline shift, mass effect, hydrocephalus or extra-axialcollection. No diffusion restricted lesions. Expected intracranial vascular flow voidsare preserved. 7 mm cerebellar tonsillar ectopia and mild crowding at the foramenmagnum, unchanged. Pituitary gland is normal in size and signal. No aggressive osseous lesions. Small right posterior maxillary sinuscallosal thickening. Visible paranasal sinuses are otherwise clear. Unchangedmoderate left mastoid fluid. IMPRESSION Small left frontal juxtacortical and left medial parietal subcorticallesions are either new or increased conspicuity since the prior study, possiblydue to differences in technique. Otherwise stable supratentorial white matterlesions. Thank you for letting us participate in the care of this patient. If youare a health care provider and have any questions regarding this report,please contact the number below. For patients who have questions please contactthe health managed care nurse that requested your imaging first. Electronically signed by: Alba Oliver MD, [facility]([phone]), at 06/16/2023 2:35 PM Erick York III, MD IMG MRI ORDERABLE S documented in this encounter Visit Diagnoses Diagnosis Multiple sclerosis documented in this encounter Care Teams Security Intern Relationship Specialty Start Date End Date Lamont Owusu MD [address] [place] [address] PCP - General Family Medicine 02/10/21 documented as of this encounter
--- OUTSIDE RECORDS SUMMARY | 2024-01-15 20:01 | XMS_ITS | Encounter Summary ---
Author Organization [facility] Address [facility] [place] [address] Care Team Providers Care Drilling Plant Operator Name Role Phone Lamont Owusu MD Primary Care Provider [phone] Encounter Details Date Type Department Care Team (Latest Contact Info) Description 08/22/2023 Travel Social History Tobacco Use Types Packs/Day [...] 1:00 PM EST Office Visit Urology at [facility] [address] [place] [phone] Desean Coronado MD [facility] [place] [address] 01/22/2024 12:30 PM EST Office Visit Neurosurgery at [facility] [address] [place] [phone] Hema Escalante MD [facility] [place] [address] [place] [address] 02/01/2024 12:00 PM EST Office [place] [phone] Georgette Monae PA [facility] [place] [address] 05/30/2024 10:30 AM EDT Appointment [place] [phone] documented as of this encounter Goals Goal Patient Goal Type Associated Problems Recent Progress Patient-Stated? Author prevention of MS relapse Patient Facing Action Plan Dionicio Almeida, [facility] documented as of this encounter Visit Diagnoses Not on filedocumented in this encounter Care Teams Drilling Plant Operator Relationship Specialty Start Date End Date Lamont Owusu MD [address] [place] [address] PCP - General Family Medicine 02/10/21 documented as of this encounter
--- OUTSIDE RECORDS SUMMARY | 2024-01-15 20:01 | XMS_ITS | Encounter Summary ---
Author Organization [facility] Address [facility] [place] [address] Care Team Providers Care Hoop Rolls Operator Name Role Phone Lamont Owusu MD Primary Care Provider [phone] Encounter Details Date Type Department Care Team (Latest Contact Info) Description 06/16/2023 12:55 PM EDT Laboratory Appointment Lab [address] [place] [phone] Multiple sclerosis; Hypogonadism in male; Abnormal results of function [...] 1:00 PM EST Office Visit Urology at [facility] [address] [place] [phone] Desean Coronado MD [facility] [place] [address] 01/22/2024 12:30 PM EST Office Visit Neurosurgery at [facility] [place] [address] Hema Escalante MD [address] [place] [address] Liudmila Oates PA [address] [place] [address] 02/01/2024 12:00 PM EST Office [place] [phone] Georgette Monae PA [facility] [place] [address] 05/30/2024 10:30 AM EDT [place]ointment [place] [phone] documented as of this encounter Goals Goal Patient Goal Type Associated Problems Recent Progress Patient-Stated? Author prevention of MS relapse Patient Facing Action Plan Dionicio Almeida, [facility] documented as of this encounter Procedures Procedure Name Priority Date/Time Associated Diagnosis Comments IMMUNOGLOBULINS, QUANTITATIVE Routine 06/16/2023 12:55 PM EDT Multiple sclerosis HEMOGRAM Routine 06/16/2023 12:55 PM EDT Hypogonadism in male DIFFERENTIAL, AUTOMATED Routine 06/16/2023 12:55 PM EDT Hypogonadism in male HEPATITIS C ANTIBODY Routine 06/16/2023 12:55 PM EDT Multiple sclerosis HEPATITIS B CORE ANTIBODY, TOTAL Routine 06/16/2023 12:55 PM EDT Multiple sclerosis ESTRADIOL Routine 06/16/2023 12:55 PM EDT Hypogonadism in male HEPATITIS B SURFACE ANTIBODY Routine 06/16/2023 12:55 PM EDT Multiple sclerosis HEPATITIS B SURFACE ANTIGEN Routine 06/16/2023 12:55 PM EDT Multiple sclerosis CBC (WITH DIFF) Routine 06/16/2023 12:55 PM EDT Hypogonadism in male TESTOSTERONE, TOTAL Routine 06/16/2023 1 2:55 PM EDT Hypogonadism in male PSA (ULTRASENSITIVE) Routine 06/16/2023 12:55 PM EDT Hypogonadism in male Abnormal results of function studies of other organs and systems COMPREHENSIVE METABOLIC PANEL Routine 06/16/2023 12:55 PM EDT Multiple sclerosis documented in this encounter Results * Differential, Automated (06/16/2023 12:55 PM EDT) Neutrophil % 63.8 % [facility] Neutrophil Absolute 4.44 1.70 - 6.10 x10(3)/[facility] Lymph % 26.7 % [facility] Lymphocytes Abs 1.9 0.9 - 3.2 x10(3)/[facility] Monocyte % 7.9 % [facility] Monocyte Abs 0.6 0.3 - 0.9 x10(3)/[facility] Eos % 0.9 % [facility] Eosinophils Abs 0.1 0.0 - 0.4 x10(3)/[facility] Basophil % 0.4 % [facility] Baso Absolute 0.0 0.0 - 0.1 x10(3)/[facility] Immature Gran % 0.30 % [facility] Comment: Immature granulocytes(IG's)percentage and absolute count will include metamyelocytes, myelocytes, and promyelocytes. Blood smears from CBCs yielding IG's will be scanned manually for concordance. If this scan disagrees with the automated IG or if promyelocytes are noted, a manual differential will be performed. Immature Gran Absolute 0.02 0.00 - 0.04 x10(3)/[facility] Blood 06/16/2023 12:5 5 PM EDT 06/16/2023 1:11 PM EDT Narrative Resulting Agency Comment Spec In Lab Desean Coronado MD HEMATOLOGY ORDERABLE S [facility] [place] [address] * (ABNORMAL) Hemogram (06/16/2023 12:55 PM EDT) White Blood Cell 7.0 4.0 - 9.5 x10(3)/mc L [facility] Red Blood Cell 5.97(H) 4.58 - 5.54 x10(6)/mc L [facility] Hemoglobin 17.4(H) 13.7 - 16.5 g/dL [facility] Hematocrit 51.8(H) 40.5 - 48.5 % [facility] Mean Cell Volume 86.8 82.9 - 93.1 fL [facility] Mean Cell Hemoglobin 29.1 27.5 - 32.1 pg [facility] Mean Cell Hemoglobin Concentration 33.6 32.0 - 35.7 g/dL [facility] Platelet 210 145 - 357 x10(3)/mc L [facility] RDW Standard Deviation 41.3 36.0 - 45.0 fL [facility] RDW coefficient of variation 13.1 11.4 - 13.8 % [facility] Mean Platelet Volume 10.9 7.6 - 12.9 fL [facility] NRBC% auto 0.0 % [facility] NRBC Absolute 0.000 0.000 - 0.000 x10(3)/mc L [facility] Blood 06/16/2023 12:5 5 PM EDT 06/16/2023 1:11 PM EDT Narrative Resulting Agency Comment Spec In Lab Desean Coronado MD HEMATOLOGY ORDERABLE S Performing Organization Address City/[facility] Co de Phone Number [facility] [place] [address] * Immunoglobulins, Quantitative (06/16/2023 12:55 PM EDT) Immunoglobulin G 1,177 700 - 1,600 mg/dL [facility] Comment: Pediatric Reference Intervals obtained from the Caliper Reference Interval project. http://www.[employer].ca/caliperproject/index.html IgA 373 70 - 400 mg/dL [facility] IgM 98 40 - 230 mg/dL [facility] Blood 06/16/2023 12:5 5 PM EDT 06/16/2023 1:11 PM EDT Narrative Resulting Agency Comment Spec In Lab Erick York III, MD CHEMISTRY ORDERAB LES Performing Organization Address [facility] Co de Phone Number [facility] [place] [address] * Estradiol (06/16/2023 12:55 PM EDT) Pathologist [facility] Estradiol <5 pg/mL [facility] Comment: Reference ranges: Males: Adult: ? 11 to 43 pg/mL Females: Non- females: ?Follicular: ??12-233 pg/mL ?Ovulation: ?? 41-398 pg/mL ?Luteal: ?22-341 pg/mL ?Postmenopausal: ?? <5 - 138 pg/mL females: ?1st trimester: ??154-3243 pg/mL ?2nd trimester: ??1561-72078 pg/mL ?3rd trimester: ??8525- >08390 pg/mL Blood 06/16/2023 12:5 5 PM EDT 06/16/2023 1:11 PM EDT Narrative Resulting Agency Comment Spec In Lab Desean Coronado MD CHEMISTRY ORDERABLES Performing Organization Address [facility] de Phone Number [facility] [place] [address] * PSA (Ultrasensitive) (06/16/2023 12:55 PM EDT) Pathologist [facility] Prostate Specific Antigen (Ultrasensitive) 0.65 0.00 - 4.00 ng/mL [facility] Comment: PLEASE NOTE: The above reference interval is intended for healthy males with an intact prostate. Values within this reference interval may indicate recurrence in men who have undergone radical prostatectomy. This result was generated using a [employer] immunoassay. ??Results obtained from other methods or manufacturers cannot be used interchangeably with this method. Blood 06/16/2023 12:5 5 PM EDT 06/16/2023 1:11 PM EDT Narrative Resulting Agency Comment Spec In Lab Desean Coronado MD CHEMISTRY ORDERABLES Performing Organization Address [facility] de Phone Number [facility] [place] [address] * (ABNORMAL) Testosterone, total (06/16/2023 12:55 PM EDT) Pathologist [facility] Testosterone 14.40(H) 2.49 - 8.36 ng/mL [facility] Comment: Pediatric Reference Ranges: ? Males (7 - 18 years) ?Females (8 - 18 years) Ole Stage ?ng/ml ? ng/ml ? 1 ? <0.03 ? <0.03 to 0.06 ? 2 ? <0.03 to 4.32 ? <0.03 to 0.10 ? 3 ?0.65 to 7.78 ? <0.03 to 0.24 ? 4 ?1.80 to 7.63 ? <0.03 to 0.27 ? 5 ?1.88 to 8.82 ?0.05 to 0.38 Stated reference ranges derived from review of Jennie Marissa Testosterone II 12/2021, v2.0 Blood 06/16/2023 12:5 5 PM EDT 06/16/2023 1:11 PM EDT Narrative Resulting Agency Comment Spec In Lab Desean Coronado MD CHEMISTRY ORDERABLES Performing Organization Address [facility] de Phone Number [facility] [place] [address] * Hepatitis C Antibody (06/16/2023 12:55 PM EDT) Hepatitis C Antibody Negative Negative [facility] Blood 06/16/2023 12:5 5 PM EDT 06/16/2023 1:11 PM EDT Narrative Resulting Agency Comment Spec In Lab Erick York III, MD CHEMISTRY ORDERAB LES Performing Organization Address [facility] de Phone Number [facility] [place] [address] * Hepatitis B Surface Antibody (06/16/2023 12:55 PM EDT) Hepatitis B Surface Antibody, Quantitative <3.5 IU/L [facility] Comment: HepB Surface Ab Quant: Unvaccinated: < 8.5 IU/L Vaccinated: >= 11.5 IU/L Hepatitis B Surface Antibody Negative [facility] Comment: Patient is presumed to be not vaccinated or immune to HBV infection. Expected Results: Vaccinated: Positive Unvaccinated: Negative Blood 06/16/2023 12:5 5 PM EDT 06/16/2023 1:11 PM EDT Narrative Resulting Agency Comment Spec In Lab Erick York III, MD CHEMISTRY ORDERAB LES Performing Organization Address City/[facility]/ZIP Co de Phone Number [facility] [place] [address] * Hepatitis B Surface Antigen (06/16/2023 12:55 PM EDT) Hepatitis B Surface Antigen Negative Negative [facility] Blood 06/16/2023 12:5 5 PM EDT 06/16/2023 1:11 PM EDT Narrative Resulting Agency Comment Spec In Lab Erick York III, MD CHEMISTRY ORDERAB LES Performing Organization Address City/[facility]/ZIP Co de Phone Number [facility] [place] [address] * Hepatitis B Core Antibody, Total (06/16/2023 12:55 PM EDT) Hepatitis B Core Antibody Negative Negative [facility] Blood 06/16/2023 12:5 5 PM EDT 06/16/2023 1:11 PM EDT Narrative Resulting Agency Comment Spec In Lab Erick York III, MD CHEMISTRY ORDERAB LES Performing Organization Address City/[facility]/ZIP Co de Phone Number [facility] [place] [address] * Comprehensive metabolic panel (non-fasting) (06/16/2023 12:55 PM EDT) Glucose 99 65 - 199 mg/dL [facility] Comment:Diabetes: >=200 mg/d L plus symptoms Blood Urea Nitrogen 19 10 - 20 mg/dL [facility] Creatinine 1.00 0.80 - 1.50 mg/dL [facility] Sodium 144 135 - 145 mmol/L [facility] Potassium 4.7 3.5 - 5.0 mmol/L [facility] Comment: Please note: ??Patients with WBC >100,000 may have falsely elevated Potassium levels. ??For accurate Potassium quantification in these patients send serum separator tube (gold top) for subsequent determinations. ??Contact the Clinical Chemistry Laboratory if there are any questions. Chloride 105 98 - 107 mmol/L [facility] Carbon Dioxide 28 22 - 31 mmol/L [facility] Anion Gap 11 5 - 15 mmol/L [facility] Calcium 10.1 8.5 - 10.5 mg/dL [facility] Protein, Total 7.9 6.1 - 8.0 g/dL [facility] Albumin 4.7 3.2 - 5.2 g/dL [facility] Aspartate Aminotransferase 23 0 - 39 unit/L [facility] Alanine Aminotransferase 25 0 - 55 unit/L [facility] Alkaline Phosphatase 85 40 - 130 unit/L [facility] Bilirubin, Total 0.4 0.2 - 1.3 mg/dL [facility] Est Glomerular Filtration Rate 99 >=60 mL/min/1. 73 m?? [facility] Comment: This patient's estimated GFR was [...] urine creatinine clearance. Assignment of CKD stage 1-5 for patients with an eGFR near the transition point between stages may be based on clinical assessment of muscle mass and symptoms in addition to eGFR. Blood 06/16/2023 12:5 5 PM EDT 06/16/2023 1:11 PM EDT Narrative Resulting Agency Comment Spec In Lab Erick York III, MD CHEMISTRY ORDERAB LES [facility] [place] [address] documented in this encounter Visit Diagnoses Diagnosis Multiple sclerosis Hypogonadism in male Abnormal results of function studies of other organs and systems documented in this encounter Care Teams Hoop Rolls Operator Relationship Specialty Start Date End Date Lamont Owusu MD [address] [place] [address] PCP - General Family Medicine 02/10/21 documented as of this encounter
--- OUTSIDE RECORDS SUMMARY | 2024-01-15 20:01 | XMS_ITS | Encounter Summary ---
Author Organization [facility] Address [facility] [place] [address] Care Team Providers Care Vice President Marketing & Development Name Role Phone Lamont Owusu MD Primary Care Provider [phone] [phone] Reason for Visit * Reason Onset Date Comments Appointment 05/26/2023 Encounter Details Date Type Department Care Team (Late st Contact Info) Description 05/26/2023 [place] [address] Erick York III, MD [facility] [place] [address] Appointment Social History Tobacco Use Types Packs/Day Years [...] encounter Miscellaneous Notes * Telephone Encounter - Karen Hernandez Ko - 05/26/2023 9:00 AM EDT Scheduling Instructions Provider: Dr York Visit Type (paste SAIGE Instructions or manually enter): Return in about 2 months (around 07/25/2023) for In Person If EMG Visit needed list diagnosis for the EMG to be used in Decision Tree: Appt Note: MS Additional Info Needed: Schedule mri x 3 , mri questions need to be asked. documented in this encounter Plan of Treatment Upcoming Encounters Date Type Department Care Team (Late st Contact Info) Description 01/19/2024 1:00 PM EST Office Visit Urology at [address] [phone] Desean Coronado MD [facility] [place] [address] 01/22/2024 12:30 PM EST Office Visit Neurosurgery at [facility] [address] [place] [phone] Hema Escalante MD [address] [facility] [address] Liudmila Oates PA [address] [place] [address] 02/01/2024 12:00 PM EST Office [place] [phone] Georgette Monae PA [facility] [place] [address] 05/30/2024 10:30 AM EDT Appointment [place] [phone] documented as of this encounter Goals Goal Patient Goal Type Associated Problems Recent Progress Patient-Stated? Author prevention of MS relapse Patient Facing Action Plan Dionicio Almeida, [facility] documented as of this encounter Visit Diagnoses Not on filedocumented in this encounter Care Teams Vice President Marketing & Development Relationship Specialty Start Date End Date Lamont Owusu MD [address] [place] [address] [address] PCP - General Family Medicine 02/10/21 documented as of this encounter
--- OUTSIDE RECORDS SUMMARY | 2024-01-15 20:01 | XMS_ITS | Encounter Summary ---
Author Organization [facility] Address [facility] Melinda meyerиван [place] [address] Care Team Providers Care Neurology Physician Assistant Name Role Phone Lamont Owusu MD Primary Care Provider [phone] Encounter Details Date Type Department Care Team (Latest Contact Info) Description 11/15/2023 Travel Social History Tobacco Use Types Packs/Day [...] 1:00 PM EST Office Visit Urology at [facility] [address] [place] [phone] Desean Coronado MD [facility] [place] [address] 01/22/2024 12:30 PM EST Office Visit Neurosurgery at [facility] [address] [place] [address] Hema Escalante MD [facility] [place] [address] [place] [address] 02/01/2024 12:00 PM EST Office [place] [phone] Georgette Monae PA [facility] [place] [address] 05/30/2024 10:30 AM EDT Appointment [place] [phone] documented as of this encounter Goals Goal Patient Goal Type Associated Problems Recent Progress Patient-Stated? Author prevention of MS relapse Patient Facing Action Plan Dionicio Almeida, [facility] documented as of this encounter Visit Diagnoses Not on filedocumented in this encounter Care Teams Neurology Physician Assistant Relationship Specialty Start Date End Date Lamont Owusu MD [address] [place] [address] PCP - General Family Medicine 02/10/21 documented as of this encounter
--- OUTSIDE RECORDS SUMMARY | 2024-01-15 20:01 | XMS_ITS | Encounter Summary ---
Author Organization [facility] Address [facility] [place] [address] Care Team Providers Care Spinning Lathe Operator Hydraulic Name Role Phone Lamont Owusu MD Primary Care Provider [phone] Reason for Visit * Reason Onset Date Comments Other 10/02/2023 Encounter Details Date Type Department Care Team (Late st Contact Info) Description 10/02/2023 [place] [phone] Erick York III, MD [facility] [place] [address] Other Social History Tobacco Use Types Packs/Day Years [...] encounter Miscellaneous Notes * Telephone Encounter - Darinel-Audrey Nolan RN - 10/02/2023 10:54 AM EDT Renée from [employer] called stating she has been trying to reach patient but pt has not responded. She is following up to see pt has started ocrevus. I explained pt has not started Ocrevus but he is scheduled for 11/15/23 and 11/30/23. Plan: per above and Renée thankful for call back and f/u. No further action required at this time. documented in this encounter Plan of Treatment Upcoming Encounters Date Type Department Care Team (Late st Contact Info) Description 01/19/2024 1:00 PM EST Office Visit Urology at [facility] [address] [place] [phone] Desean Coronado MD [facility] [place] [address] 01/22/2024 12:30 PM EST Office Visit Neurosurgery at [facility] [address] [place] [address] Hema Escalante MD [address] [facility] [place] [address] Liudmila Oates PA [address] [facility] [place] [address] 02/01/2024 12:00 PM EST Office [place] [phone] Georgette Monae PA [facility] [place] [address] 05/30/2024 10:30 AM EDT Appointment [place] [phone] documented as of this encounter Goals Goal Patient Goal Type Associated Problems Recent Progress Patient-Stated? Author prevention of MS relapse Patient Facing Action Plan Dionicio Almeida, [facility] documented as of this encounter Visit Diagnoses Not on filedocumented in this encounter Care Teams Spinning Lathe Operator Hydraulic Relationship Specialty Start Date End Date Lamont Owusu MD [address] [place] [address] PCP - General Family Medicine 02/10/21 documented as of this encounter
--- OUTSIDE RECORDS SUMMARY | 2024-01-15 20:01 | XMS_ITS | Encounter Summary ---
Author Organization [facility] Address [facility] [place] [address] Care Team Providers Care Vest Baster Name Role Phone Lamont Owusu MD Primary Care Provider [phone] [phone] Encounter Details Date Type Department Care Team (Latest Contact Info) Description 06/07/2023 Travel Social History Tobacco Use Types Packs/Day [...] 1:00 PM EST Office Visit Urology at [facility] [address] [place] [phone] Desean Coronado MD [facility] [place] [address] 01/22/2024 12:30 PM EST Office Visit Neurosurgery at [facility] [address] [place] [phone] Hema Escalante MD [facility] [place] [address] [place] [address] 02/01/2024 12:00 PM EST [place] [phone] Georgette Monae PA [facility] [place] [address] 05/30/2024 10:30 AM EDT [place]oint[place] [phone] documented as of this encounter Goals Goal Patient Goal Type Associated Problems Recent Progress Patient-Stated? Author prevention of MS relapse Patient Facing Action Plan Dionicio Almeida, [facility] documented as of this encounter Visit Diagnoses Not on filedocumented in this encounter Care Teams Vest Baster Relationship Specialty Start Date End Date Lamont Owusu MD [address] [place] [address] PCP - General Family Medicine 02/10/21 documented as of this encounter
--- OUTSIDE RECORDS SUMMARY | 2024-01-15 20:01 | XMS_ITS | Encounter Summary ---
Author Organization [facility] Address [facility] [place] [address] Care Team Providers Care Bounty Hunter Name Role Phone Lamont Owusu MD Primary Care Provider [phone] Encounter Details Date Type Department Care Team (Latest Contact Info) Description 06/03/2023 Travel Social History Tobacco Use Types Packs/Day [...] 1:00 PM EST Office Visit Urology at [facility] [address] [place] [phone] Desean Coronado MD [facility] [place] [address] 01/22/2024 12:30 PM EST Office Visit Neurosurgery at [facility] [address] [place] [phone] Hema Escalante MD [facility] [address] [place] [address] 02/01/2024 12:00 PM EST [place] [phone] Georgette Monae PA [facility] [place] [place] [address] 05/30/2024 10:30 AM EDT [place]ointment [place] [phone] documented as of this encounter Goals Goal Patient Goal Type Associated Problems Recent Progress Patient-Stated? Author prevention of MS relapse Patient Facing Action Plan Dionicio Almeida, [facility] documented as of this encounter Visit Diagnoses Not on filedocumented in this encounter Care Teams Bounty Hunter Relationship Specialty Start Date End Date Lamont Owusu MD [address] [place] [address] PCP - General Family Medicine 02/10/21 documented as of this encounter
--- OUTSIDE RECORDS SUMMARY | 2024-01-15 20:01 | XMS_ITS | Encounter Summary ---
[facility] Organization [facility] Address [facility] [place] [address] Care Team Providers Care Wax Room Supervisor Name Role Phone Lamont Owusu MD Primary Care Provider [phone] [phone] Reason for Visit * Reason Onset Date Comments Medication Refill 06/27/2023 Encounter Details Date Type Department Care Team (Late st Contact Info) Description 06/27/2023 [place] [address] Desean Coronado MD [facility] [place] [address] Hypogonadism in male Social History Tobacco Use Types Packs/Day Years [...] encounter Miscellaneous Notes * Telephone Encounter - Jackie Niño RN - 06/27/2023 10:18 AM EDT Duplicate request documented in this encounter Plan of Treatment Upcoming Encounters Date Type Department Care Team (Late st Contact Info) Description 01/19/2024 1:00 PM EST Office Visit Urology at [facility] [address] [place] [phone] Desean Coronado MD [facility] [place] [address] 01/22/2024 12:30 PM EST Office Visit Neurosurgery at [facility] [address] [place] [address] Hema Escalante MD [address] [facility] [place] [address] Liudmila Oates PA [address] [facility] [place] [address] 02/01/2024 12:00 PM [place] [phone] Georgette Monae PA [facility] [place] [address] 05/30/2024 10:30 AM EDT [place] [phone] documented as of this encounter Goals Goal Patient Goal Type Associated Problems Recent Progress Patient-Stated? Author prevention of MS relapse Patient Facing Action Plan Dionicio Almeida, [facility] documented as of this encounter Visit Diagnoses Diagnosis Hypogonadism in male documented in this encounter Care Teams Wax Room Supervisor Relationship Specialty Start Date End Date Lamont Owusu MD [address] [place] [address] [address] [facility] [address] [place] [address] PCP - General Family Medicine 02/10/21 documented as of this encounter
--- OUTSIDE RECORDS SUMMARY | 2024-01-15 20:01 | XMS_ITS | Encounter Summary ---
Author Organization [facility] [place] [address] Care Team Providers Care Event Services Manager Name Role Phone Lamont Owusu MD Primary Care Provider [phone] [phone] Reason for Referral * Diagnostic Test (Routine) - Closed Specialty Diagnoses / Procedures Referred By Contac t Referred To Contact Radiology Diagnoses Multiple sclerosis Procedures MRI Thoracic Spine wwo Contrast Georgette Monae PA [facility] [place] [address] [place] [address] Referral ID Status Reason Start Date Expiration Date V isits Requested Visits Authorized [id number] Closed Specialty Service Requested 08/17/2023 02/15/2025 1 1 * Diagnostic Test (Routine) - Closed Specialty Diagnoses / Procedures Referred By Contac t Referred To Contact Radiology Diagnoses Multiple sclerosis Procedures MRI Brain wwo Contrast (Generic) Georgette Monae PA [facility] [place] [address] [place] [address] Referral ID Status Reason Start Date Expiration Date V isits Requested Visits Authorized [id number] Closed Specialty Service Requested 08/17/2023 02/15/2025 1 1 Encounter Details Date Type Department Care Team (Late st Contact Info) Description 08/17/[address] [facility] [address] [place] [address] Georgette Monae PA [facility] [place] [address] Social History Tobacco Use Types Packs/Day Years [...] encounter Miscellaneous Notes * Telephone Encounter - Georgette Monae PA - 08/17/2023 11:51 AM EDT Subjective: Erick Chacon is a 37 y.o. with MS who is concerned about MS relapse. Timeline: 08/01 noted new numbness in feet 08/04- up his legs, sharp pains in his feet as well. 08/07 numbness from the waist down, difficulty walking, legs very heavy 08/08-present: numbness has moved up to his chest, below the nipple but above the belly button. All symptoms are very similar to his first relapse in 2020, however, he states that the current symptoms are much worse. Specifically his legs are heavier, he is having more difficulty ambulating, hedid not have sharp pains in 2020, and he also has vision involvement. Vision complaints: started around 08/07. When trying to read or look at his phone, he reports the images/words are blurry/fuzzy. Red and greens colors are more fuzzy then other colors. When closing 1 eye - both are problematic, however, right is worse. He has a history of vision blurring in the past and was seen by Dr. Black - Dry eyes diagnosed; no evidence of MS disease activity. He is not on a DMT - he had discussed Ocrevus with Dr. York at this last visit on 05/25/23 but reports he is now hesitant to start this given what he has read. Pre-labs have been obtained but he has not received the Prevnar vaccine. Plan: MRI brain and T-spine ordered for worsening, ascending sensory changes in his legs up to his upper abdomen, as well as, vision blurring OU. Discussed Ocrevus concerns at length. Pt is willing to trial it and will work on getting Prevnar vaccine. I will send PCP a letter asking for him to administer it (per patient request). Briefly discussed IV steroids for the treatment of relapses. Pt aware side effects , risks, indications and expectations - will hold off for now. [place] documented in this encounter Plan of Treatment Upcoming Encounters Date Type Department Care Team (Late st Contact Info) Description 01/19/2024 1:00 PM EST Office Visit Urology at [facility] [address] [place] [phone] Desean Coronado MD [facility] [place] [address] 01/22/2024 12:30 PM EST Office Visit Neurosurgery at [facility] [place] [address] Hema Escalante MD [facility] [place] [address] Liudmila Oates PA [facility] [place] [address] 02/01/2024 12:00 PM EST [place] [address] Georgette Monae PA [facility] [place] [address] 05/30/2024 10:30 AM EDT [place]ointment [place] [phone] documented as of this encounter Goals Goal Patient Goal Type Associated Problems Recent Progress Patient-Stated? Author prevention of MS relapse Patient Facing Action Plan Dionicio Almeida, [facility] documented as of this encounter Results * MRI Thoracic Spine wwo Contrast (09/08/2023 8:32 AM EDT) WORKSTATION ID [id number] RAD Anatomical Region Laterality Modality T-spine Magnetic Resonan ce Impressions 09/10/2023 2:51 PM EDT MRI brain: 1. ??There are 5 new multiple sclerosis plaques, 4 of which have abnormal enhancement consistent with active demyelination. 2. ??Stable Chiari I malformation. MRI thoracic spine: 1. ??No multiple sclerosis plaques in the thoracic spine. Normal thoracic spinal cord signal abnormality. 2. ??Stable right disc protrusion at T9 which continues to contour the ventral right spinal cord without spinal cord compression. Thank you for letting us participate in the care of this patient. ??If you are a health care provider and have any questions regarding this report, please contact the number below. ??For patients who have questions please contact the health professional healthcare representative that requested your imaging first. ? Electronically signed by: Trish Corral MD, [facility] ([phone]), at 09/10/2023 2:51 PM Narrative 09/10/2023 2:51 PM EDT EXAMINATION: MRI BRAIN WWO CONTRAST (GENERIC), MRI THORACIC SPINE WWO CONTRAST CLINICAL HISTORY: c/f MS relapse: vision blurring OU, as well as, ascending numbness from the legs to the mid thoracic level G35, Multiple sclerosis TECHNIQUE: MRI of the brain and thoracic spine performed before and after the intravenous administration of 20cc Dotarem. COMPARISON: MRI brain 06/16/2023 FINDINGS: MRI brain: There are new T2 bright, enhancing lesions in the ventral left paramedian lloyd, along the lateral margin of the right lateral ventricular atrium, about the posterolateral aspect of the left occipital horn, and along the posterior margin of the right side of the corpus callosum splenium. There is a new T2 bright nonenhancing lesion along the lateral margin of the posterior body of the right lateral ventricle. Additional T2 bright lesions are stable. No additional abnormal enhancement. No mass, mass effect, hydrocephalus, or midline shift. The cerebellar tonsils again extend below the foramen magnum by roughly 7 mm. MRI thoracic spine: The vertebral bodies are normal in height. No subluxation. No marrow signal abnormality. Moderate degenerative disc changes at T8-9 with a similar right paracentral disc protrusion that mildly contours the ventral right spinal cord without cord compression. There is mild enhancement about the protrusion consistent with granulation tissue. No additional abnormal enhancement. No abnormal spinal cord signal. There is a 3.5 cm presumed pericardial cyst on the right. Procedure Note Trish Corral MD - 09/10/2023 EXAMINATION: MRI BRAIN WWO CONTRAST (GENERIC), MRI THORACIC SPINE WWOCONTRAST CLINICAL HISTORY: c/f MS relapse: vision blurring OU, as well as,ascending numbness from the legs to the mid thoracic level G35, Multiple sclerosis TECHNIQUE: MRI of the brain and thoracic spine performed before and after theintravenous administration of 20cc Dotarem. COMPARISON: MRI brain 06/16/2023 FINDINGS: MRI brain: There are new T2 bright, enhancing lesions in the ventral left paramedianpons, along the lateral margin of the right lateral ventricular atrium, aboutthe posterolateral aspect of the left occipital horn, and along the posteriormargin of the right side of the corpus callosum splenium. There is a new [id number] nonenhancing lesion along the lateral margin of the posterior body of theright lateral ventricle. Additional T2 bright lesions are stable. Noadditional abnormal enhancement. No mass, mass effect, hydrocephalus, or midline shift. The cerebellartonsils again extend below the foramen magnum by roughly 7 mm. MRI thoracic spine: The vertebral bodies are normal in height. No subluxation. No marrowsignal abnormality. Moderate degenerative disc changes at T8-9 with a similarright paracentral disc protrusion that mildly contours the ventral right spinalcord without cord compression. There is mild enhancement about the protrusion consistent with granulation tissue. No additional abnormal enhancement.No abnormal spinal cord signal. There is a 3.5 cm presumed pericardial cyst on the right. IMPRESSION MRI brain: 1. There are 5 new multiple sclerosis plaques, 4 of which have abnormal enhancement consistent with active demyelination. 2. Stable Chiari I malformation. MRI thoracic spine: 1. No multiple sclerosis plaques in the thoracic spine. Normal thoracicspinal cord signal abnormality. 2. Stable right disc protrusion at T9 which continues to contour theventral right spinal cord without spinal cord compression. Thank you for letting us participate in the care of this patient. If youare a health care provider and have any questions regarding this report,please contact the number below. For patients who have questions please contactthe health professional healthcare representative that requested your imaging first. Electronically signed by: Trish Corral MD, [facility]([phone]), at 09/10/2023 2:51 PM Erick Flowers MD IMG MRI ORDERABLES * MRI Brain wwo Contrast (Generic) (09/08/2023 8:32 AM EDT) WORKSTATION ID [id number] RAD Anatomical Region Laterality Modality Head Magnetic Resonan ce Impressions 09/10/2023 2:51 PM EDT MRI brain: 1. ??There are 5 new multiple sclerosis plaques, 4 of which have abnormal enhancement consistent with active demyelination. 2. ??Stable Chiari I malformation. MRI thoracic spine: 1. ??No multiple sclerosis plaques in the thoracic spine. Normal thoracic spinal cord signal abnormality. 2. ??Stable right disc protrusion at T9 which continues to contour the ventral right spinal cord without spinal cord compression. Thank you for letting us participate in the care of this patient. ??If you are a health care provider and have any questions regarding this report, please contact the number below. ??For patients who have questions please contact the health professional healthcare representative that requested your imaging first. ? Electronically signed by: Trish Corral MD, [facility] ([phone]), at 09/10/2023 2:51 PM Narrative 09/10/2023 2:51 PM EDT EXAMINATION: MRI BRAIN WWO CONTRAST (GENERIC), MRI THORACIC SPINE WWO CONTRAST CLINICAL HISTORY: c/f MS relapse: vision blurring OU, as well as, ascending numbness from the legs to the mid thoracic level G35, Multiple sclerosis TECHNIQUE: MRI of the brain and thoracic spine performed before and after the intravenous administration of 20cc Dotarem. COMPARISON: MRI brain 06/16/2023 FINDINGS: MRI brain: There are new T2 bright, enhancing lesions in the ventral left paramedian lloyd, along the lateral margin of the right lateral ventricular atrium, about the posterolateral aspect of the left occipital horn, and along the posterior margin of the right side of the corpus callosum splenium. There is a new T2 bright nonenhancing lesion along the lateral margin of the posterior body of the right lateral ventricle. Additional T2 bright lesions are stable. No additional abnormal enhancement. No mass, mass effect, hydrocephalus, or midline shift. The cerebellar tonsils again extend below the foramen magnum by roughly 7 mm. MRI thoracic spine: The vertebral bodies are normal in height. No subluxation. No marrow signal abnormality. Moderate degenerative disc changes at T8-9 with a similar right paracentral disc protrusion that mildly contours the ventral right spinal cord without cord compression. There is mild enhancement about the protrusion consistent with granulation tissue. No additional abnormal enhancement. No abnormal spinal cord signal. There is a 3.5 cm presumed pericardial cyst on the right. Procedure Note Trish Corral MD - 09/10/2023 EXAMINATION: MRI BRAIN WWO CONTRAST (GENERIC), MRI THORACIC SPINE WWOCONTRAST CLINICAL HISTORY: c/f MS relapse: vision blurring OU, as well as,ascending numbness from the legs to the mid thoracic level G35, Multiple sclerosis TECHNIQUE: MRI of the brain and thoracic spine performed before and after theintravenous administration of 20cc Dotarem. COMPARISON: MRI brain 06/16/2023 FINDINGS: MRI brain: There are new T2 bright, enhancing lesions in the ventral left paramedianpons, along the lateral margin of the right lateral ventricular atrium, aboutthe posterolateral aspect of the left occipital horn, and along the posteriormargin of the right side of the corpus callosum splenium. There is a new [id number] nonenhancing lesion along the lateral margin of the posterior body of theright lateral ventricle. Additional T2 bright lesions are stable. Noadditional abnormal enhancement. No mass, mass effect, hydrocephalus, or midline shift. The cerebellartonsils again extend below the foramen magnum by roughly 7 mm. MRI thoracic spine: The vertebral bodies are normal in height. No subluxation. No marrowsignal abnormality. Moderate degenerative disc changes at T8-9 with a similarright paracentral disc protrusion that mildly contours the ventral right spinalcord without cord compression. There is mild enhancement about the protrusion consistent with granulation tissue. No additional abnormal enhancement.No abnormal spinal cord signal. There is a 3.5 cm presumed pericardial cyst on the right. IMPRESSION MRI brain: 1. There are 5 new multiple sclerosis plaques, 4 of which have abnormal enhancement consistent with active demyelination. 2. Stable Chiari I malformation. MRI thoracic spine: 1. No multiple sclerosis plaques in the thoracic spine. Normal thoracicspinal cord signal abnormality. 2. Stable right disc protrusion at T9 which continues to contour theventral right spinal cord without spinal cord compression. Thank you for letting us participate in the care of this patient. If youare a health care provider and have any questions regarding this report,please contact the number below. For patients who have questions please contactthe health professional healthcare representative that requested your imaging first. Electronically signed by: Trish Corral MD, [facility]([phone]), at 09/10/2023 2:51 PM Erick Flowers MD IMG MRI ORDERABLES documented in this encounter Visit Diagnoses Diagnosis Multiple sclerosis Multiple sclerosis documented in this encounter Care Teams Event Services Manager Relationship Specialty Start Date End Date Lamont Owusu MD [address] [place] [address] PCP - General Family Medicine 02/10/21 documented as of this encounter
--- OUTSIDE RECORDS SUMMARY | 2024-01-15 20:01 | XMS_ITS | Encounter Summary ---
Author Organization [facility] Address [facility] Melinda [place]ив[address] [place] [address] Care Team Providers Care Build Engineer Name Role Phone Lamont Owusu MD Primary Care Provider [phone] [phone] Reason for Visit * Reason Onset Date Comments Medication Refill 09/06/2023 Encounter Details Date Type Department Care Team (Late st Contact Info) Description 09/06/2023 [place] [address] Desean Coronado MD [facility] [place] [address] Hypogonadism in male Social History Tobacco Use [...] Telephone Encounter - Jackie Niño RN - 09/06/2023 12:01 PM EDT Last office visit: 08/30/23 He has been on a regimen of injectable testosterone cypionate dosed 1 mL of 200 mg/mL every 14 days. He is also on anastrozole 1 mg daily (but was supposed to be prescribed weekly) A: This is a 37-year-old gentleman with a history of symptomatic hypogonadism [...] deformity and no interference with sexual activity. 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 We discussed buried penis repair in detail today as a surgical option to improve penis externalization and reduce hygiene concerns. I explained this procedure in detail, including the procedure itself as well as the perioperative course and the postoperative recovery. We discussed the risks of the procedure, including bleeding, bruising, swelling, infection, injury to surrounding structures, incisional discomfort,cosmetic changes, seroma formation, recurrence, and potential need for further procedures. He will let me know if he wishes to proceed. All questions were answered to his satisfaction and he expressed understanding. documented in this encounter Plan of Treatment Upcoming Encounters Date Type Department Care Team (Late st Contact Info) Description 01/19/2024 1:00 PM EST Office Visit Urology at [facility] [address] [place] [phone] Desean Coronado MD [facility] [place] [address] 01/22/2024 12:30 PM EST Office Visit Neurosurgery at [facility] [address] [facility] [place] [phone] Hema [place] [address] Liudmila [place] [address] 02/01/2024 12:00 PM EST Office [place] [phone] Georgette Monae PA [facility] [place] [address] 05/30/2024 10:30 AM EDT Appointment [place] [phone] documented as of this encounter Goals Goal Patient Goal Type Associated Problems Recent Progress Patient-Stated? Author prevention of MS relapse Patient Facing Action Plan Dionicio Almeida, [facility] documented as of this encounter Visit Diagnoses Diagnosis Hypogonadism in male documented in this encounter Care Teams Build Engineer Relationship Specialty Start Date End Date Lamont Owusu MD [address] [facility] 1 [place] [address] PCP - General Family Medicine 02/10/21 documented as of this encounter
--- OUTSIDE RECORDS SUMMARY | 2024-01-15 20:01 | XMS_ITS | Encounter Summary ---
Author Organization [facility] Address [facility] Melinda [place]ив[address] [place] [address] Care Team Providers Care Locker Room Attendant Name Role Phone Lamont Owusu MD Primary Care Provider [phone] Encounter Details Date Type Department Care Team (Latest Contact Info) Description 09/06/2023 Travel Social History Tobacco Use Types Packs/Day [...] 1:00 PM EST Office Visit Urology at [facility] [address] [place] [phone] Desean Coronado MD [facility] [place] [address] 01/22/2024 12:30 PM EST Office Visit Neurosurgery at [facility] [address] [place] [address] Hema Escalante MD [facility] [place] [address] [place] [address] 02/01/2024 12:00 PM EST [place] [phone] Georgette Monae PA [facility] [place] [address] 05/30/2024 10:30 AM EDT [place]oint[place] [phone] documented as of this encounter Goals Goal Patient Goal Type Associated Problems Recent Progress Patient-Stated? Author prevention of MS relapse Patient Facing Action Plan Dionicio Almeida, [facility] documented as of this encounter Visit Diagnoses Not on filedocumented in this encounter Care Teams Locker Room Attendant Relationship Specialty Start Date End Date Lamont Owusu MD [address] [place] [address] PCP - General Family Medicine 02/10/21 documented as of this encounter
--- OUTSIDE RECORDS SUMMARY | 2024-01-15 20:01 | XMS_ITS | Encounter Summary ---
Author Organization [facility] Address [facility] Melinda [place]ив[address] [place] [address] Care Team Providers Care Bus Escort Name Role Phone Lamont Owusu MD Primary Care Provider [phone] Reason for Visit * Reason Onset Date Comments Medication Refill 11/17/2023 Encounter Details Date Type Department Care Team (Late Contact Info) Description 11/17/2023 [place] [address] Desean Coronado MD [facility] [place] [address] Hypogonadism in male Social History Tobacco Use [...] 1:00 PM EST Office Visit Urology at [facility] [address] [phone] Desean Coronado MD [facility] [place] [address] 01/22/2024 12:30 PM EST Office Visit Neurosurgery at [facility] [address] [place] [address] Hema Escalante MD [address] [place] [address] Liudmila Oates PA [address] [place] [address] 02/01/2024 12:00 PM EST Office [place] [phone] Georgette Monae PA [facility] [place] [address] 05/30/2024 10:30 AM EDT Appointment [place] [phone] documented as of this encounter Goals Goal Patient Goal Type Associated Problems Recent Progress Patient-Stated? Author prevention of MS relapse Patient Facing Action Plan Dionicio Almeida, [facility] documented as of this encounter Visit Diagnoses Diagnosis Hypogonadism in male documented in this encounter Care Teams Bus Escort Relationship Specialty Start Date End Date Lamont Owusu MD [address] [place] [address] [address] [place] [address] PCP - General Family Medicine 02/10/21 documented as of this encounter
--- OUTSIDE RECORDS SUMMARY | 2024-01-15 20:01 | XMS_ITS | Encounter Summary ---
Author Organization [facility] [place] [address] Care Team Providers Care Neon Electrician Name Role Phone Lamont Owusu MD Primary Care Provider [phone] [phone] Encounter Details Date Type Department Care Team (Late st Contact Info) Description 09/11/2023 8:00 AM EDT [place] [address] Erick Yrok III, MD [facility] [place] [address] Multiple sclerosis Social History Tobacco Use Types [...] Sign Reading Time Taken Comments Blood Pressure 147/98 09/11/2023 8:08 AM EDT Pulse 78 09/11/2023 8:08 AM EDT Temperature - - Respiratory Rate - - Oxygen Saturation - - Inhaled Oxygen Concentration - - Weight 99.8 kg (220 lb) 09/11/2023 8:08 AM EDT p t reported Height 175.3 cm (5' 9) 09/11/2023 8:08 AM EDT p t reported Body Mass Index 32.49 09/11/2023 8:08 AM EDT documented in this encounter Progress Notes * Agustina Tidwell MAPPING SPECIALIST - 09/11/2023 8:00 AM EDT Images from the original note were not included. [facility] Follow-up Visit Dear Lamont Owusu MD, I saw Erick Valero Ines in clinic today in follow-up for Multiple sclerosis. He was not accompanied with any one at today's visit. Below is my progress note with impression and plan. Please do not hesitate to call with any questions. DISEASE SUMMARY: Principal neurologic diagnosis: MS Onset: 2018 Diagnosis of MS: 03/2018 CSF: 13 OCBs, normal IgG index, normal cell# and protein Disease course at onset: Relapsing Current disease course: Relapsing Relapses: 2019 -B/L legs ,Right arm and neck Last relapse: 07/2023: Bilateral leg weakness and numbness MS Severity Score (EDSS and Disease Duration): 12/11/2019 3:22 PM 06/03/2020 8:20 PM 02/01/2021 6:41 PM 05/25/2023 10:36 AM 06/14/2023 11:43 AM 09/10/2023 2:34 PM [facility] Multiple Sclerosis Audit Sub Scores 1 (Low Risk) 2 (Low Risk) 2 (Low Risk) Pain Typical 5 (None-0, Worst-10) Incomplete Incomplete 4 (None-0, Worst-10) 3 (None-0, Worst-10) 3(None-0, Worst-10) Pain Now 3 (None-0, Worst-10) 2 (None-0, Worst-10) Incomplete 2 (None-0, Worst- 10) 5 (None-0, Worst-10) 5 (None-0, Worst-10) Pain at Rest 2 (None-0, Worst-10) Incomplete Incomplete 1 (None-0, Worst-10) 1 (None-0, Worst-10) 1(None-0, Worst-10) Pain with Activity 8 (None-0, Worst-10) Incomplete Incomplete 7 (None-0, Worst- 10) 3 (None-0, Worst-10) 3 (None-0, Worst-10) PHQ-9 Depression 20 (Severe Depression) MSIS-29 100 69 82 70 61 62 Treatment History Previous disease therapies: Tecfidera, Vumerity Current disease therapies: None Imaging History Most recent MRI brain: 09/08/2023 (5 new lesions, 4 with enhancement; prior imaging May 2023) Most recent MRI cervical spine: 06/16/2023 (stable, no new lesions; prior October 2019) Most recent MRI thoracic spine: 09/08/2023 (no lesions) Interval History: Erick Chacon was last seen via telemedicine in May 2023. At that time he did not report anynew or worsening neurological symptoms concerning for MS relapse or disability progression. He has reported stopping Vumerity 1 year prior (2022) due to flushing. Repeat MRI scan of his brain, cervical, and thoracic spine did not show any new lesions. We discussed transitioning to alternative MS immunotherapy, and specifically discussed treatment with Eliquis. However apparently after this appointment he was reticent to start Ocrevus due to infection concerns. In the interim, he called the clinic in July 2023 with symptoms of new numbness in his feet which gradually progressed to the torso. He also reported increased heaviness in both legs and more difficulties with walking. Additionally he reported some difficulties with reading due to images being blurry or fuzzy, but denied any double vision. Treatment with steroids was offered, but he deferred at that time. MRI scan of his brain and thoracic spine were ordered. Treatment options were discussed again including Ocrevus. When seated for a bowel movement he develops numbness and tingling sensation in both legs (L > R) that takes a couple of minutes to resolve upon moving from the toilet. His symptoms are lessened when using a toilet seat that is higher and wider. Today he further added that he have numbness /tingling all around his abdomen which is kind of persistent since his flare in July 2023. Over the course of the past month or so his leg weakness and walking difficulties have gradually improved, but not back to their baseline. His vision is also improving, but not back to his baseline. He does not report any additional new or worsening neurological symptoms. Current Medications: reviewed and updated in EMR Physical Examination No data found. He was alert and oriented to person, place, and time with normal language, attention and concentration, recent and remote memory, praxis, and intellectual function. Mood was euthymic. Affect was congruent. Visual acuity was 20/25 OD, 20/25 OS. Visual joiner were full to confrontation. Funduscopic examination appeared normal. Ocular ductions were full without nystagmus. Facial sensation was normal. Muscles of facial expression moved normally. Hearing was normal. There was no dysarthria. Motor tone was as below. There was no pronator drift. Upper extremities (R/L) Die Repair 5/5 Finger abduction 5/5 Finger extension 5/5 Wrist extension 5/5 Elbow flexion 5/5 Elbow extension 5/5 Shoulder abduction 5/5 Lower extremities (R/L) Hip flexion 5/5 Knee extension 5/5 Knee flexion 5/5 Ankle plantarflexion 5/5 Ankle dorsiflexion 5/5 Pin sensation was intact and symmetric in all distal extremities. Vibratory sensation was 10-14 seconds at the toes. Negative Romberg. No dysmetria with [id number]-tu-[id number] testing bilaterally. Finger tapping was rapid and accurate bilaterally. Standard gait was normal . He was able to tandem walk. Timed 25-foot walk (sec): 4 sec Assistive device: -None. REVIEW OF IMAGING STUDIES: I reviewed the following studies: MRI brain: [facility] contrast Date:09/08/2023 IMPRESSION MRI brain: 1. There are 5 new multiple sclerosis plaques, 4 of which have abnormal enhancement consistent with active demyelination. 2. Stable Chiari I malformation. MRI spine: without contrast -09/08/2023 MRI thoracic spine: 1. No multiple sclerosis plaques in the thoracic spine. Normal thoracic spinal cord signal abnormality. 2. Stable right disc protrusion at T9 which continues to contour the ventral right spinal cord without spinal cord compression. Assessment: ICD-10-CM 1. Multiple sclerosis G35 2. Muscle spasms of both lower extremities M62.838 baclofen (Lioresal) 10 mg tablet Erick Chacon is a 37 y.o. man with relapsing multiple sclerosis with activity not currently on MS immunotherapy (last on Vumerity in 2022). He is presenting with walking difficulties as well asblurring of vision with recent MRI scan of the brain showing 5 new lesions, for which showed evidence of contrast-enhancement. We again discussed the role of treatment with MS immunotherapy to reducethe risk of future relapses. We again reviewed efficacy, safety concerns, and potential side effects of treatment with Ocrevus (he is not interested in treatment with Kesimpta due to home injections). He will need to receive Prevnar 20 vaccination. QuantiFERON testing was completed following this appointment and was negative. Hepatitis B and C panel was also negative. Plan: plan to start Ocrevus in the near future Continue on baclofen 10 mg 3 times daily Follow-Up: 2 months with TITI Lundy Thank you for allowing us to participate in Erick 's [facility]. If you have questions or concerns please do not hesitate to call our clinic at [phone]. Erick York III, MD Department of Neurology [address] [place], [place] P F 4:55 PM 09/16/2023 documented in this encounter Plan of Treatment Upcoming Encounters Date Type Department Care Team (Late st Contact Info) Description 01/19/2024 1:00 PM EST Office Visit [facility] at [facility] [address] [place] [phone] Desean Coronado MD [facility] [place] [address] 01/22/2024 12:30 PM EST Office Visit Neurosurgery at [facility] [address] [place] [address] Hema Escalante MD [facility] [place] [address] Liudmila Oates PA [facility] [place] [address] 02/01/2024 12:00 PM EST Office [place] [address] Georgette Monae PA [facility] [place] [address] 05/30/2024 10:30 AM EDT [place]ointment [place] [address] documented as of this encounter Goals Goal Patient Goal Type Associated Problems Recent Progress Patient-Stated? Author prevention of MS relapse Patient Facing Action Plan Dionicio Almeida, [facility] documented as of this encounter Visit Diagnoses Diagnosis Multiple sclerosis documented in this encounter Care Teams Neon Electrician Relationship Specialty Start Date End Date Lamont Owusu MD [facility] [address] [facility] [address] [place] [address] PCP - General Family Medicine 02/10/21 documented as of this encounter
--- OUTSIDE RECORDS SUMMARY | 2024-01-15 20:01 | XMS_ITS | Encounter Summary ---
Author Organization [facility] Address [facility] [place] [address] Care Team Providers Care Software Project Lead Name Role Phone Lamont Owusu MD Primary Care Provider [phone] [phone] Encounter Details Date Type Department Care Team (Latest Contact Info) Description 06/15/2023 Travel Social History Tobacco Use Types Packs/Day [...] 1:00 PM EST Office Visit Urology at [facility] [address] [place] [phone] Desean Coronado MD [facility] [place] [address] 01/22/2024 12:30 PM EST Office Visit Neurosurgery at [facility] [address] [place] [phone] Hema Escalante MD [facility] [place] [address] [place] [address] 02/01/2024 12:00 PM EST [place] [phone] Georgette Monae PA [facility] [place] [address] 05/30/2024 10:30 AM EDT [place] [address] documented as of this encounter Goals Goal Patient Goal Type Associated Problems Recent Progress Patient-Stated? Author prevention of MS relapse Patient Facing Action Plan Dionicio Almeida, [facility] documented as of this encounter Visit Diagnoses Not on filedocumented in this encounter Care Teams Software Project Lead Relationship Specialty Start Date End Date Lamont Owusu MD [address] [place] [address] PCP - General Family Medicine 02/10/21 documented as of this encounter
--- OUTSIDE RECORDS SUMMARY | 2024-01-15 20:01 | XMS_ITS | Encounter Summary ---
Author Organization [facility] [place]inda [place] [address] Care Team Providers Care Press Hand Supervisor Name Role Phone Lamont Owusu MD Primary Care Provider [phone] [phone] Reason for Visit * Reason Onset Date Comments Medication Refill 06/15/2023 Encounter Details Date Type Department Care Team (Late st Contact Info) Description 06/15/2023 [place] [address] Desean Coronado MD [facility] [place] [address] Social History Tobacco Use Types Packs/Day Years [...] 1:00 PM EST Office Visit Urology at [facility] [address] [place] [phone] Desean Coronado MD [facility] [place] [address] 01/22/2024 12:30 PM EST Office Visit Neurosurgery at [facility] [address] [facility] [address] Hema Escalante MD [facility] [place] [address] Liudmila Oates PA [address] [place] [address] 02/01/2024 12:00 PM EST [place] [phone] Georgette Monae PA [facility] [place] [address] 05/30/2024 10:30 AM EDT [place] [phone] documented as of this encounter Goals Goal Patient Goal Type Associated Problems Recent Progress Patient-Stated? Author prevention of MS relapse Patient Facing Action Plan Dionicio Almeida, [facility] documented as of this encounter Visit Diagnoses Not on filedocumented in this encounter Care Teams Press Hand Supervisor Relationship Specialty Start Date End Date Lamont Owusu MD [address] [place] [address] PCP - General Family Medicine 02/10/21 documented as of this encounter
--- OUTSIDE RECORDS SUMMARY | 2024-01-15 20:01 | XMS_ITS | Encounter Summary ---
Author Organization [facility] Address [facility] Melinda meyerиван [place] [address] Care Team Providers Care Optician Manager Name Role Phone Lamont Owusu MD Primary Care Provider [phone] [phone] Encounter Details Date Type Department Care Team (Latest Contact Info) Description 08/30/2023 Travel Social History Tobacco Use Types Packs/Day [...] 1:00 PM EST Office Visit [facility]rology at [facility] [address] [place] [phone] Desean Coronado MD [facility] [place] [address] 01/22/2024 12:30 PM EST Office Visit Neurosurgery at [facility] [address] [place] [address] Hema Escalante MD [facility] [place] [address] [place] [address] 02/01/2024 12:00 PM EST Office [place] [phone] Georgette Monae PA [facility] [place] [address] 05/30/2024 10:30 AM EDT Appointment [place] [phone] documented as of this encounter Goals Goal Patient Goal Type Associated Problems Recent Progress Patient-Stated? Author prevention of MS relapse Patient Facing Action Plan Dionicio Almeida, [facility] documented as of this encounter Visit Diagnoses Not on filedocumented in this encounter Care Teams Optician Manager Relationship Specialty Start Date End Date Lamont Owusu MD [address] [place] [address] PCP - General Family Medicine 02/10/21 documented as of this encounter
--- OUTSIDE RECORDS SUMMARY | 2024-01-15 20:01 | XMS_ITS | Encounter Summary ---
Author Organization [facility] Melinda [facility] [place] [address] Care Team Providers Care Survey Superintendent Name Role Phone Lamont Owusu MD Primary Care Provider [phone] [phone] Encounter Details Date Type Department Care Team (Late st Contact Info) Description 06/16/2023 [place] [phone] Devon Hilario RN Social History Tobacco Use Types Packs/Day [...] encounter Miscellaneous Notes * Telephone Encounter - Devon Hilario RN - 06/16/2023 3:21 PM EDT Copied from [facility] #[id number]. Topic: Specialty Dept CRMs - Generic Call >> Jun 16, 2023 2:46 PM Vanessa Silver wrote: Specialist: Desean Coronado MD Relationship (if other than patient-full name): Self Reason for Call: Patient stated he was just speaking to someone regarding his last testosterone injection - please see lab note from today. Patient confirmed last injection was Monday, 06/13. documented in this encounter Plan of Treatment Upcoming Encounters Date Type Department Care Team (Late st Contact Info) Description 01/19/2024 1:00 PM EST Office Visit Urology at [facility] [address] [place] [phone] Desean Coronado MD [facility] [place] [address] 01/22/2024 12:30 PM EST Office Visit Neurosurgery at [facility] [address] [place] [address] Hema Escalante MD [address] [facility] [place] [address] Liudmila Oates PA [address] [facility] [place] [address] 02/01/2024 12:00 PM EST [place] [phone] Georgette Monae PA [facility] [place] [address] 05/30/2024 10:30 AM EDT [place] [phone] documented as of this encounter Goals Goal Patient Goal Type Associated Problems Recent Progress Patient-Stated? Author prevention of MS relapse Patient Facing Action Plan Dionicio Almeida, [facility] documented as of this encounter Visit Diagnoses Not on filedocumented in this encounter Care Teams Survey Superintendent Relationship Specialty Start Date End Date Lamont Owusu MD [address] [place] [address] [address] [place] [address] PCP - General Family Medicine 02/10/21 documented as of this encounter
--- OUTSIDE RECORDS SUMMARY | 2024-01-15 20:01 | XMS_ITS | Encounter Summary ---
Author Organization [facility] Address [facility] Melinda [place]ив[place] [address] Care Team Providers Care Executive Talent Acquisition Consultant Name Role Phone Lamont Owusu MD Primary Care Provider [phone] [phone] Encounter Details Date Type Department Care Team (Latest Contact Info) Description 09/08/2023 Travel Social History Tobacco Use Types Packs/Day [...] 1:00 PM EST Office Visit Urology at [facility] [address] [place] [phone] Desean Coronado MD [facility] [place] [address] 01/22/2024 12:30 PM EST Office Visit Neurosurgery at [facility] [address] [place] [address] Hema Escalante MD [facility] [place] [address] [place] [address] 02/01/2024 12:00 PM EST [place] [phone] Georgette Monae PA [facility] [place] [address] 05/30/2024 10:30 AM EDT [place]ointment [place] [phone] documented as of this encounter Goals Goal Patient Goal Type Associated Problems Recent Progress Patient-Stated? Author prevention of MS relapse Patient Facing Action Plan Dionicio Almeida, [facility] documented as of this encounter Visit Diagnoses Not on filedocumented in this encounter Care Teams Executive Talent Acquisition Consultant Relationship Specialty Start Date End Date Lamont Owusu MD [address] [place] [address] PCP - General Family Medicine 02/10/21 documented as of this encounter
--- OUTSIDE RECORDS SUMMARY | 2024-01-15 20:01 | XMS_ITS | Encounter Summary ---
Author Organization [facility] Address [facility] [place] [address] Care Team Providers Care Reel Repairer Name Role Phone Lamont Owusu MD Primary Care Provider [phone] [phone] Encounter Details Date Type Department Care Team (Latest Contact Info) Description 06/14/2023 Travel Social History Tobacco Use Types Packs/Day [...] 1:00 PM EST Office Visit Urology at [facility] [address] [place] [phone] Desean Coronado MD [facility] [place] [address] 01/22/2024 12:30 PM EST Office Visit Neurosurgery at [facility] [address] [place] [phone] Hema Escalante MD [facility] [place] [address] [place] [address] 02/01/2024 12:00 PM EST [place] [phone] Georgette Monae PA [facility] [place] [place] [address] 05/30/2024 10:30 AM EDT [place]ointment [place] [address] documented as of this encounter Goals Goal Patient Goal Type Associated Problems Recent Progress Patient-Stated? Author prevention of MS relapse Patient Facing Action Plan Dionicio Almeida, [facility] documented as of this encounter Visit Diagnoses Not on filedocumented in this encounter Care Teams Reel Repairer Relationship Specialty Start Date End Date Lamont Owusu MD [address] [place] [address] PCP - General Family Medicine 02/10/21 documented as of this encounter
--- OUTSIDE RECORDS SUMMARY | 2024-01-15 20:01 | XMS_ITS | Encounter Summary ---
Author Organization [facility] Address [facility] Melinda [place]иван [place] [address] Care Team Providers Care Paste Up Artist Name Role Phone Lamont Owusu MD Primary Care Provider [phone] [phone] Reason for Visit * Reason Onset Date Comments Medication Refill 08/15/2023 Encounter Details Date Type Department Care Team (Late st Contact Info) Description 08/15/2023 [place] [address] Desean Coronado MD [facility] [place] [address] Social History Tobacco Use Types Packs/Day Years [...] Telephone Encounter - Jackie Niño RN - 08/15/2023 11:31 AM EDT Last office visit: 04/06/23 A: This is a 37-year-old gentleman with a history of symptomatic hypogonadism now successfully treated with testosterone replacement therapy. He also has erectile dysfunction well-controlled with sildenafil. He also has Peyronie's disease. He also has acquired buried penis. P: Regarding his symptomatic hypogonadism he is doing well on his current medication. There are no adverse symptoms or issues with his medication regimen at this point. I have advised him to continueon this medication and to contact me if he has any further issues. We discussed adding anastrozole 1 mg weekly in order to mitigate effects of increased estradiol. We discussed proper dosing and administration of this medication as well as potential side effects in detail. He expressed understanding and would like to proceed. I have sent a prescription to his pharmacy. I have also ordered repeat CBC, T, PSA and estradiol levels for comparison and management. I will have him return to clinic to see me in three months for continued evaluation. Regarding his erectile dysfunction, this is well-controlled with sildenafil at this time. Regardinghis Peyronie's disease, the presence of a hinge deformity remains unclear. I advised him to take sildenafil at the 100 mg dose and document what he describes as a hinge deformity on video and bring this to our next visit. We will also work on his acquired buried penis once we have adequately improved his symptomatic hypogonadism and erectile dysfunction and Peyronie's disease. He expressed understanding of this plan, and all questions were answered to his satisfaction. documented in this encounter Plan of Treatment Upcoming Encounters Date Type Department Care Team (Late st Contact Info) Description 01/19/2024 1:00 PM EST Office Visit Urology at [facility] [address] [place] [phone] Desean Coronado MD [facility] [address] 01/22/2024 12:30 PM EST Office Visit Neurosurgery at [facility] [place] [phone] Hema Escalante MD [place] [address] Liudmila Oates PA [facility] [place] [address] 02/01/2024 12:00 PM EST Office [place] [phone] Georgette Monae PA [facility] [place] [address] 05/30/2024 10:30 AM EDT Appointment [place] [phone] documented as of this encounter Goals Goal Patient Goal Type Associated Problems Recent Progress Patient-Stated? Author prevention of MS relapse Patient Facing Action Plan Dionicio Almeida, [facility] documented as of this encounter Visit Diagnoses Not on filedocumented in this encounter Care Teams Paste Up Artist Relationship Specialty Start Date End Date Lamont Owusu MD [address] [place] [address] PCP - General Family Medicine 02/10/21 documented as of this encounter
--- OUTSIDE RECORDS SUMMARY | 2024-01-15 20:01 | XMS_ITS | Encounter Summary ---
Author Organization [facility] [place] [address] Care Team Providers Care Mds Nurse Name Role Phone Lamont Owusu MD Primary Care Provider [phone] Encounter Details Date Type Department Care Team (Late st Contact Info) Description 11/01/2023 Orders [place] [address] Desean Coronado MD [facility] [place] [address] Acquired buried penis Social History Tobacco Use [...] 1:00 PM EST Office Visit Urology at [facility] [address] [place] [phone] Desean Coronado MD [facility] [place] [place] [address] 01/22/2024 12:30 PM EST Office Visit Neurosurgery at [facility] [address] [facility] [place] [address] Hema Escalante MD [address] [place] [address] Liudmila Oates PA [address] [place] [address] 02/01/2024 12:00 PM EST Office [place] [phone] Georgette Monae PA [facility] [place] [address] 05/30/2024 10:30 AM EDT Appointment [place] [phone] Scheduled Orders Name Type Priority Associated Diagnoses Orde r Schedule SURGICAL CASE REQUEST: ADJ.TISSUE TRANSFER, REARRANGEMENT, 10.1 TO 30 SQ.CM, GENITALIA (WRVU 10.83) Procedures Routine Acquired buried penis Ordered: 11/01/2023 documented as of this encounter Goals Goal Patient Goal Type Associated Problems Recent Progress Patient-Stated? Author prevention of MS relapse Patient Facing Action Plan Dionicio Almeida, [facility] documented as of this encounter Visit Diagnoses Diagnosis Acquired buried penis Other specified disorder of penis documented in this encounter Care Teams Mds Nurse Relationship Specialty Start Date End Date Lamont Owusu MD [address] [place] [address] [address] [place] [address] PCP - General Family Medicine 02/10/21 documented as of this encounter
--- OUTSIDE RECORDS SUMMARY | 2024-01-15 20:01 | XMS_ITS | Encounter Summary ---
Author Organization [facility] Address [facility] [place] [address] Care Team Providers Care Marketing Operations Specialist Name Role Phone Lamont Owusu MD Primary Care Provider [phone] Reason for Visit * Reason Onset Date Comments Letter/Form 09/04/2023 Ocrevus start fo rm Encounter Details Date Type Department Care Team (Late st Contact Info) Description 09/04/2023 [place] [address] Erick York III, MD [facility] [place] [address] Letter/Form (Ocrevus start form) Social History Tobacco Use Types Packs/Day Years [...] Telephone Encounter - Darinel-Audrey Nolan RN - 09/13/2023 2:[address] York patient is clear to start Ocrevus. Therapy plan pended for provider review and signature. Ocrevus start form faxed to [employer] on 09/13/23 to fax number [phone]. Copy of form scanned to chart. * Telephone Encounter - Audrey Rausch RN - 09/04/2023 3:09 PM EDT I phoned pt as he will be starting Ocrevus. Pt needs to have prevnar 20 vaccine and quantiferon test prior to starting. I phoned pt to review above. He will have lab draw next week when he is here for his office visit. Pt states he sees his PCP 09/13 and will have Prevnar vaccine then. Plan: as above and pt instructed to call back once he has received the prevnar vaccine. Pt agrees with plan and verbalizes understanding. documented in this encounter Plan of Treatment Upcoming Encounters Date Type Department Care Team (Late st Contact Info) Description 01/19/2024 1:00 PM EST Office Visit Urology at [facility] [address] [place] [phone] Desean Coronado MD [facility] [place] [address] 01/22/2024 12:30 PM EST Office Visit Neurosurgery at [facility] [address] [facility] [place] [address] Hema Escalante MD [address] [place] [address] Liudmila Oates PA [address] [place] [address] 02/01/2024 12:00 PM EST Office [place] [address] Georgette Monae PA [facility] [place] [address] 05/30/2024 10:30 AM EDT Appointment [place] [address] documented as of this encounter Goals Goal Patient Goal Type Associated Problems Recent Progress Patient-Stated? Author prevention of MS relapse Patient Facing Action Plan Dionicio Almeida, [facility] documented as of this encounter Visit Diagnoses Not on filedocumented in this encounter Care Teams Marketing Operations Specialist Relationship Specialty Start Date End Date Lamont Owusu MD [address] [place] [address] [address] [facility] [address] [place] [address] PCP - General Family Medicine 02/10/21 documented as of this encounter
--- OUTSIDE RECORDS SUMMARY | 2024-01-15 20:01 | XMS_ITS | Encounter Summary ---
Author Organization Replaced By [facility] Address [facility] [place]inda [place] [address] Care Team Providers Care Job Developer For Deaf Adults Name Role Phone Lamont Owusu MD Primary Care Provider [phone] Encounter Details Date Type Department Care Team (Latest Contact Info) Description 09/11/2023 Travel Social History Tobacco Use Types Packs/Day [...] 1:00 PM EST Office Visit Urology at [facility] [address] [place] [phone] Desean Coronado MD [facility] [place] [address] 01/22/2024 12:30 PM EST Office Visit Neurosurgery at [facility] [address] [place] [address] Hema Escalante MD [facility] [place] [address] [place] [place] [address] 02/01/2024 12:00 PM [place] [phone] Georgette Monae PA [facility] [place] [place] [address] 05/30/2024 10:30 AM EDT [place] [phone] documented as of this encounter Goals Goal Patient Goal Type Associated Problems Recent Progress Patient-Stated? Author prevention of MS relapse Patient Facing Action Plan Dionicio Almeida, [facility] documented as of this encounter Visit Diagnoses Not on filedocumented in this encounter Care Teams Job Developer For Deaf Adults Relationship Specialty Start Date End Date Lamont Owusu MD [address] [place] [address] PCP - General Family Medicine 02/10/21 documented as of this encounter
--- OUTSIDE RECORDS SUMMARY | 2024-01-15 20:01 | XMS_ITS | Encounter Summary ---
Author Organization [facility] [place] [address] Care Team Providers Care Ground Equipment Mechanic Name Role Phone Lamont Owusu MD Primary Care Provider [phone] [phone] Reason for Referral * Diagnostic Test (Routine) - Closed Specialty Diagnoses / Procedures Referred By Contac t Referred To Contact Radiology Diagnoses Multiple sclerosis Procedures MRI Thoracic Spine wo Contrast (Generic) Erick York III, MD [facility] [place] [address] [place] [address] Referral ID Status Reason Start Date Expiration Date V isits Requested Visits Authorized [id number] Closed Specialty Service Requested 05/25/2023 11/23/2024 1 1 * Diagnostic Test (Routine) - Closed Specialty Diagnoses / Procedures Referred By Contac t Referred To Contact Radiology Diagnoses Multiple sclerosis Procedures MRI Cervical Spine wo Contrast (Generic) Erick York III, MD [facility] [place] [address] [place] [address] Referral ID Status Reason Start Date Expiration Date V isits Requested Visits Authorized [id number] Closed Specialty Service Requested 05/25/2023 11/23/2024 1 1 * Diagnostic Test (Routine) - Closed Specialty Diagnoses / Procedures Referred By Contac t Referred To Contact Radiology Diagnoses Multiple sclerosis Procedures MRI Brain wo Contrast Erick York III, MD [facility] [place] [address] [facility] [place] [address] Referral ID Status Reason Start Date Expiration Date V isits Requested Visits Authorized [id number] Closed Specialty Service Requested 05/25/2023 11/23/2024 1 1 Encounter Details Date Type Department Care Team (Latest Contact Info) Description 05/25/2023 10:30 AM EDT TH Visit (TeleHealth) [place] [address] Erick York III, MD [facility] [place] [address] Multiple sclerosis; Muscle spasms of both lower extremities Social [...] as of this encounter Progress Notes * Erick York III, MD - 05/25/2023 10:30 AM EDT [facility] Telemedicine Follow-Up Visit (home) Dear Lamont Owusu MD, I saw Erick Chacon today in follow-up for multiple via telemedicine. Below is my progress note with impression and plan. Please do not hesitate to call with any questions. DISEASE SUMMARY: Principal neurologic diagnosis: MS Onset: 2019 Diagnosis of MS: 03/2018 CSF: 13 OCBs, normal IgG index, normal cell# and protein Disease course at onset: relapsing Current disease course: relapsing Relapses: 2019 - bilateral leg, R arm and neck numbness Treatment History Previous disease therapies: Tecfidera, Vumerity Current disease therapies: none Imaging History Most recent MRI brain: 11/11/2019 Most recent MRI cervical spine: 11/16/2019 Most recent MRI thoracic spine: 11/16/2019 Interval History: Erick Chacon was last seen in clinic in January 2021. Prior to that he had sent a message saying that he had stopped Tecfidera in December 2020 due to side effect of flushing. In January 2021he reported development of numbness from mid torso down through his feet including genital area, occasional sensation of leg heaviness. His symptoms were worse with sitting. His neurological examination was notable for mild right hip flexion weakness, bilateral lower extremity hyperreflexia, and decreased sensation with mid thoracic sensory level. I ordered MRI scan of the brain and thoracic spine. We discussed switching to Vumerity. Vumerity was prescribed with subsequent refills completed in February 2021, October 2021, and February 2022. He continued on baclofen 10 mg 2 times daily. In the interim, he canceled or no showed for appointments appointments in March 2021, June 2022, August 2022, and September 2022. Today, Erick Today, he reports no new or worsening neurological symptoms concerning for MS relapse or disabilityprogression. He stopped taking Vumerity due to flushing - stopped more than 1 year ago. Specifically, they deny any new subacute onset of neurological symptoms lasting more than 24 hours,including: loss of vision in 1 or both eyes, double vision, vertigo with ataxia, hemiface/arm/leg/hemibody numbness or weakness or bilateral lower extremity numbness or weakness. He reports pain on either side of his face. He was seen by a dentist who did not find a cause for the pain. He report that the pain started in March 2023. He describes the pain as a dull ache thatis worse with chewing. He denies any shooting pain. The pain is anterior to the TMJ. He reports more grinding of his teeth when he sleeps. He has been seen by a urologist (Dr. Coronado at [facility]) for erectile dysfunction (start ~ 1 year ago). He has been taking testosterone due to low testosterone levels. The testosterone treatments have been helpful. He was also started on sildenafil which has been effective. He reports when supine if he moves his head he has an internal sensation of spinning that lasts about 30 seconds. He is not sure if this is triggered with left or right head movements. This started about 1 year ago and occurs a few times per month. He reports hearing a pulse in his R ear that is constant, but no loss of hearing or pressure/pain in the ear. He plans to discuss this with his PCP. Outside of these episodes of vertigo he is not having difficulty with walking other than when he turns quickly. He is able to walk > 1-2 miles and @ 1 mile he might experience recurrence of paresthesias in his legs. He has not had any falls in the past year. When seated for a bowel movement he develops numbness and tingling sensation in both legs (L > R) that takes a couple of minutes to resolve upon moving from the toilet. His symptoms are lessened when using a toilet seat that is higher and wider. He continues on baclofen 10mg 2 times daily. His muscle spasms seem to recur in the early afternoon. Current Medications: reviewed and updated in EMR Physical Examination VS were not able to be obtained due to patient location. He was alert and oriented to person, place, and time with normal language, attention and concentration, recent and remote memory, praxis, and intellectual function. Mood was euthymic. Affect was congruent. REVIEW OF IMAGING STUDIES: I reviewed the following studies: no new imaging Assessment: ICD-10-CM 1. Multiple sclerosis G35 2. Muscle spasms of both lower extremities M62.838 baclofen (Lioresal) 10 mg tablet Erick Chacon is a 37 y.o. man with relapsing multiple sclerosis with uncertain disease activity status not currently on MS immunotherapy. He was previously on Vumerity, but stopped more than 1 year ago and since that time has been lost to follow-up. He is not reporting any new neurological symptoms concerning for MS relapse or disability progression. He has chronic lower back pain not secondary to multiple sclerosis. His facial pain seems to be most consistent with TMJ, not consistent with trigeminal neuralgia which is sometimes seen in patients with multiple sclerosis. 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 Treatment Plan: Muscle spasticity: Increase baclofen from 10 mg 2 times daily to 10 mg 3 times daily. We discussed potential for sedation. Advised him not to drive after the new midday dose until he is aware of potential We discussed starting a new MS immunotherapy. We specifically discussed Ocrevus and Kesimpta including efficacy, potential safety concerns (immunosuppression and increased risks of infection), infusion/injection reactions, screening laboratory evaluation and serial laboratory monitoring. He was most interested in starting Ocrevus. Prior to starting Ocrevus he will need CBC diff, CMP, hepatitis screening (B and C), and QuantiFERON. There was also noted that if I that he will need the influenza and Prevnar 20 vaccination at least 1 month before starting Ocrevus. Follow-up: 2 to 3 months in clinic Thank you for allowing us to participate in [facility]. If you have questions or concerns please do not hesitate to call our clinic at [phone]. Erick York III, MD Building Superintendent [facility] Department of Neurology [facility] [address] P F 5:16 PM 05/25/2023 documented in this encounter Plan of Treatment Upcoming Encounters Date Type Department Care Team (Late st Contact Info) Description 01/19/2024 1:00 PM EST Office Visit Urology at [facility] [address] [place] [phone] Desean Coronado MD [facility] [place] [address] 01/22/2024 12:30 PM EST Office Visit Neurosurgery at [facility] [address] [place] [phone] Hema Escalante MD [facility] [place] [address] Liudmila Oates PA [address] [address] 02/01/2024 12:00 PM EST Office [place] [phone] Georgette Monae PA [facility] [place] [address] 05/30/2024 10:30 AM EDT Appointment [place] [address] Scheduled Orders Name Type Priority Associated Diagnoses Orde r Schedule CBC (with Diff) Lab Routine Multiple sclerosis Every 6 months for 3 Occurrences starting 05/25/2023 until 05/24/2024 Immunoglobulins, Quantitative Lab Routine Multiple sclerosis Every 6 months for 3 Occurrences starting 05/25/2023 until 05/24/2024, 1 completed documented as of this encounter Goals Goal Patient Goal Type Associated Problems Recent Progress Patient-Stated? Author prevention of MS relapse Patient Facing Action Plan Dionicio Almeida, [facility] documented as of this encounter Results * MRI Thoracic Spine wo Contrast (Generic) (06/16/2023 2:25 PM EDT) [employer] WORKSTATION ID [id number] [facility] Anatomical Region Laterality Modality T-spine Magnetic Resonan [...] who have questions please contact the health director career that requested your imaging first. ? Narrative 06/16/2023 3:10 PM EDT EXAMINATION: MRI [...] dorsal cord from C5-C6 to the inferior [id number] with accompanying cord volume loss are unchanged. [...] patients who have questions please contactthe health director career that requested your imaging first. Erick York III, MD IM MRI ORDERABLE S * MRI Cervical Spine wo Contrast (Generic) (06/16/2023 2:25 PM EDT) WORKSTATION ID [id number] RAD Anatomical Region Laterality Modality C-spine Magnetic [...] who have questions please contact the health director career that requested your imaging first. ? Narrative 06/16/2023 3:10 PM EDT EXAMINATION: MRI [...] of the pericardium, is unchanged back to 2014. Procedure Note Alba Oliver MD - 06/16/2023 [...] dorsal cord from C5-C6 to the inferior R9fpesh with accompanying cord volume loss are unchanged. [...] region of the pericardium, isunchanged back to 2014. IMPRESSION 1. Unchanged demyelinating cervical cord lesions. [...] patients who have questions please contactthe health director career that requested your imaging first. Erick York III, MD [facility] MRI ORDERABLE S * MRI Brain wo Contrast (06/16/2023 2:25 PM EDT) WORKSTATION ID [id number] RAD Anatomical Region Laterality Modality Head Magnetic [...] who have questions please contact the health director career that requested your imaging first. ? Narrative 06/16/2023 2:35 PM EDT EXAMINATION: MRI [...] patients who have questions please contactthe health director career that requested your imaging first. Erick York III, MD [facility] MRI ORDERABLE S * Immunoglobulins, Quantitative (06/16/2023 12:55 PM EDT) Immunoglobulin G 1,177 700 - 1,600 mg/dL [facility] Comment: Pediatric Reference Intervals obtained from the Caliper Reference Interval project. http://www.Jibe.ca/caliperproject/index.html IgA 373 70 - 400 mg/dL [facility] IgM 98 40 - 230 mg/dL [facility] Blood 06/16/2023 12:5 5 PM EDT 06/16/2023 1:11 PM EDT Narrative Resulting Agency Comment Spec In Lab Erick York III, MD CHEMISTRY ORDERAB LES Performing Organization Address City/[facility]/ZIP Co de Phone Number [facility] [place] [address] * Hepatitis C Antibody (06/16/2023 12:55 PM EDT) Hepatitis C Antibody Negative Negative [facility] Blood 06/16/2023 12:5 5 PM EDT 06/16/2023 1:11 PM EDT Narrative Resulting Agency Comment Spec In Lab Erick York III, MD CHEMISTRY ORDERAB LES Performing Organization Address City/[facility]/ZIP Co de Phone Number [facility] [place] [address] * Hepatitis B Surface Antibody (06/16/2023 12:55 PM EDT) Hepatitis B Surface Antibody, Quantitative <3.5 IU/L [facility] Comment: HepB Surface Ab Quant: Unvaccinated: < 8.5 IU/L Vaccinated: >= 11.5 IU/L Hepatitis B Surface Antibody Negative [facility] Comment: Patient is presumed to be not vaccinated or immune to HBV infection. Expected Results: Vaccinated: Positive Unvaccinated: Negative Blood 06/16/2023 12:5 5 PM EDT 06/16/2023 1:11 PM EDT Narrative Resulting Agency Comment Spec In Lab Erick York III, MD CHEMISTRY ORDERAB LES Performing Organization Address City/[facility]/ZIP Co de Phone Number [facility] [place] [address] * Hepatitis B Surface Antigen (06/16/2023 12:55 PM EDT) Hepatitis B Surface Antigen Negative Negative [facility] Blood 06/16/2023 12:5 5 PM EDT 06/16/2023 1:11 PM EDT Narrative Resulting Agency Comment Spec In Lab Erick York III, MD CHEMISTRY ORDERAB LES Performing Organization Address [facility]/[employer] Co de Phone Number [facility] [place] [address] * Hepatitis B Core Antibody, Total (06/16/2023 12:55 PM EDT) Hepatitis B Core Antibody Negative Negative [facility] Blood 06/16/2023 12:5 5 PM EDT 06/16/2023 1:11 PM EDT Narrative Resulting Agency Comment Spec In Lab Erick York III, MD CHEMISTRY ORDERAB LES Performing Organization Address [facility]/[employer] Co de Phone Number [facility] [place] [address] * Comprehensive metabolic panel (non-fasting) (06/16/2023 12:55 PM EDT) Glucose 99 65 - 199 mg/dL [facility] Comment:Diabetes: >=200 mg/d L plus symptoms Blood Urea Nitrogen 19 10 - 20 mg/dL [facility] Creatinine 1.00 0.80 - 1.50 mg/dL [facility] Sodium 144 135 - 145 mmol/L [facility] Potassium 4.7 3.5 - 5.0 mmol/L [facility] Comment: Please note: ??Patients with WBC >100,000 may have falsely elevated Potassium levels. ??For accurate Potassium quantification in these patients send serum separator tube (gold top) for subsequent determinations. ??Contact the Clinical Chemistry Laboratory if there are any questions. Chloride 105 98 - 107 mmol/L [facility] Carbon Dioxide 28 22 - 31 mmol/L [facility] Anion Gap 11 5 - 15 mmol/L [facility] Calcium 10.1 8.5 - 10.5 mg/dL [facility] Protein, Total 7.9 6.1 - 8.0 g/dL [facility] Albumin 4.7 3.2 - 5.2 g/dL [facility] Aspartate Aminotransferase 23 0 - 39 unit/L [facility] Alanine Aminotransferase 25 0 - 55 unit/L [facility] Alkaline Phosphatase 85 40 - 130 unit/L [facility] Bilirubin, Total 0.4 0.2 - 1.3 mg/dL [facility] Est Glomerular Filtration Rate 99 >=60 mL/min/1. 73 m?? [facility] Comment: This patient's estimated GFR [...] Erick York III, MD CHEMISTRY ORDERAB LES [facility] [place] [address] documented in this encounter Visit Diagnoses Diagnosis Multiple sclerosis Muscle spasms of both lower extremities Multiple sclerosis documented in this encounter Care Teams Ground Equipment Mechanic Relationship Specialty Start Date End Date Lamont Owusu MD [address] [place] [address] PCP - General Family Medicine 02/10/21 documented as of this encounter
--- OUTSIDE RECORDS SUMMARY | 2024-01-15 20:01 | XMS_ITS | Encounter Summary ---
Author Organization [facility] [place] [address] Care Team Providers Care Rotary Envelope Machine Operator Name Role Phone Lamont Owusu MD Primary Care Provider [phone] [phone] Reason for Visit * Treatment/Therapy Plan Authorization (Routine) - Authorized Specialty Diagnoses / Procedures Referred By Contac t Referred To Contact Diagnoses Multiple sclerosis Procedures INFUSION THERAPY TC OCRELIZUMAB, 1MG, INJECTION Erick Sullivan III, MD [facility] [place] [address] [facility] Med Infusion [address] [place] [phone] Referral ID Status Reason Start Date Expiration Date V isits Requested Visits Authorized [id number] Authorized 09/13/2023 09/12/2024 99 99 Encounter Details Date Type Department Care Team (Latest Contact Info) Description 11/15/2023 9:48 AM EDT - 11/15/2023 11:59 PM EDT Hospital Encounter [place] [phone] Multiple sclerosis Discharge Disposition: Home [...] Sign Reading Time Taken Comments Blood Pressure 135/84 11/15/2023 2:12 PM EDT Pulse 77 11/15/2023 2:12 PM EDT Temperature 36.2 ??C (97.1 ??F) 11/15/2023 9:49 AM ED T Respiratory Rate 16 11/15/2023 9:49 AM EDT Oxygen Saturation 100% 11/15/2023 9:49 AM EDT Inhaled Oxygen Concentration - - Weight 101 kg (222 lb 9.6 oz) 11/15/2023 9:49 AM EDT Height - - Body Mass Index 32.87 09/11/2023 8:08 AM EDT documented in this encounter Medications at Time of Discharge Medication Sig Dispensed Refills Start Date End Date oxyCODONE-acetaminop hen (Percocet) 5-325 mg tablet Take 1 tablet by mouth every 4 hours as needed. 10 tablet 01/11/2024 docusate sodium (Colace) 100 mg capsule Take 1 capsule by mouth 2 times daily for 10 days. 20 capsule 01/11/2024 01/21/2024 naloxone (Narcan) 4 mg/actuation nasal spray Q2M [...] by mouth 3 times daily. 0 10/17/2014 testosterone cypionate (DepoTESTOSTERONE Cypionate) (200mg/mL) injectionIndications :Hypogonadism in male Inject 1 mL into the muscle every 14 days. 6 mL 09/06/2023 11/17/2023 syringe with needle, disposable, 3 mL 22 gauge x 1 Syringe Use 1 syringe weekly for IM testosterone injection 12 each 3 06/15/2023 11/20/2023 baclofen (Lioresal) 10 mg tabletIndications:Mu scle spasms of both lower extremities Take 1 tablet by mouth 3 times daily for 180 days. 90 tablet 5 05/25/2023 11/29/2023 aspirin 325 mg Tablet Take 325 mg by mouth every 6 hours as needed for Pain. 01/11/2024 documented as of this encounter Progress Notes * Sharee Martinez RN - 11/15/2023 10:57 AM EDT Images from the original note were not included. INFUSION THERAPY ADMINISTRATION NOTE DIAGNOSIS: 1. Multiple sclerosis REASON FOR VISIT: Ocrevus Infusion (FIRST dose) SUBJECTIVE: No complaints. OBJECTIVE: Erick arrives today for his first Ocrevus infusion. Nursing education regarding medication, s/s ofpossible hypersensitivity and protocol reviewed. No Known Allergies LAB DATA: No results found for this or any previous visit (from the past 24 hour(s)). VITAL SIGNS Patient Vitals for the past 24 hrs: Temp Pulse Resp BP SpO2 11/15/23 0949 36.2 ??C (97.1 ??F) 65 16 135/82 100 % IF PAIN > 5, INTERVENTION AND EFFECTIVENESS: NA IV PLACEMENT: PIV 11/15/23 1040 24 gauge;3/4 in length median vein (underside of arm), right (Active) ANTIEMETICS/PREMEDS: Acetaminophen 650mg PO @ given, see NANCI Benadryl 50mg in 50 cc NS IV [...] by 30 ml/hr every 30 minutes. REACTIONS Upon completion of infusion it was noted that Gage cheeks had become blotchy, flush, and warm totouch. He states that this is what has happened before with medications and it typically spreads tohis chest. Currently it is localized to his face. No other s/s of hypersensitivity, states he feelsfine. 1410: NS fluid bolus started, provider notified and in agreement with fluid bolus and monitoring. 1430: Right cheek still reddened, all other areas clear, continue fluid bolus. 1445: Flushing resolved and no longer warm to touch. Will finish NS bolus and discharged home. Discussed with Erick following the same premedication and monitoring protocol for his next 300 mg dose, recommend his first 600 mg dose be given at the standard infusion rate and not accelerated until it is known how he will react. He is in agreement with this plan. ASSESSMENT Tolerated treatment well. Patient remained for 60 min post infusion observation period. PLAN Next infusion on 11/30/2023, dose 2. documented in this encounter Plan of Treatment Upcoming Encounters Date Type Department Care Team (Late st Contact Info) Description 01/19/2024 1:00 PM EST Office Visit Urology at [facility] [address] [place] [phone] Desean Coronado MD [facility] [place] [address] 01/22/2024 12:30 PM EST Office Visit Neurosurgery at [facility] [address] [place] [address] Hema Escalante MD [address] [facility] [place] [address] Liudmila Oates PA [address] [facility] [place] [address] 02/01/2024 12:00 PM EST Office [place] [phone] Georgette Monae PA [facility] [place] [address] 05/30/2024 10:30 AM EDT [place]ointment [place] [phone] documented as of this encounter [...] 650 mg, Oral, ONCE, 1 dose, On Mon11/15/23 at 1030, Routine Given 11/15/2023 10:46 AM EDT 650 mg diphenhydrAMINE (Benadryl) (50 mg/mL) injection 50 mg 50 mg, Intravenous, ONCE, 1 dose, On Mon11/15/23 at 1030, May take IV if unable to take orally., Routine Given 11/15/2023 10:45 AM EDT 50 mg methylPREDNISolone sod succ (pf) (SOLU-Medrol) (125 mg/2 mL) injection 100 mg 100 mg, Intravenous, ONCE, 1 dose, On Mon11/15/23 at 1100 Given 11/15/2023 10:45 AM EDT 100 mg ocrelizumab (Ocrevus) 300 mg in sodium chloride 0.9% 250 mL Initial infusions 300 mg, Intravenous, ONCE, 1 dose, On Mon11/15/23 at 1100, Ocrevus 300 mg IV day 1, Ocrevus 300 mg IV day 15, then Ocrevus 600 mg IV every 6 months, Restricted Biologic: Ordering restricted to neurology attending. Please indicate appropriate provider. Dr. Erick York III New Bag 11/15/2023 11:23 AM EDT 300 mg sodium chloride 0.9% infusion 500 mL, Intravenous, CONTINUOUS, Starting on Mon11/15/23 at 1430, Until Serina 11/16/23 at 0435, Ensure patent IV access to keep vein open New Bag 11/15/2023 2:10 PM EDT 500 mLs documented in this encounter Care Teams Rotary Envelope Machine Operator Relationship Specialty Start Date End Date Lamont Owusu MD [facility] [address] [facility] [address] [place] [address] PCP - General Family Medicine 02/10/21 documented as of this encounter
--- OUTSIDE RECORDS SUMMARY | 2024-01-15 20:01 | XMS_ITS | Encounter Summary ---
Author Organization [facility] Address [facility] [address] [place] [address] Care Team Providers Care Nut Orchardist Name Role Phone Lamont Owusu MD Primary Care Provider [phone] [phone] Encounter Details Date Type Department Care Team (Late st Contact Info) Description 08/30/2023 1:40 PM EDT [place] [phone] Desean Coronado MD [facility] [place] [address] Hypogonadism in male; Abnormal results of function studies of other organs and systems; Peyronie's disease; Erectile dysfunction, unspecified erectile dysfunction type; Acquired buried penis Social History Tobacco Use Types Packs/Day Years Used Date Smoking Tobacco: Former Cigarettes Q uit: 08/20/2018 Smokeless Tobacco: Never Tobacco Cessation:Counseling Given: Not Answered Comments:Stopped smoking about two months (documented on [...] Sign Reading Time Taken Comments Blood Pressure 140/98 08/30/2023 1:31 PM EDT Pulse 76 08/30/2023 1:31 PM EDT Temperature - - Respiratory Rate - - Oxygen Saturation - - Inhaled Oxygen Concentration - - Weight - - Height - - Body Mass Index - - documented in this encounter Progress Notes * Desean Coronado MD - 08/30/2023 1:40 PM EDT S: I saw Mr. Chacon in follow-up for his history of hypogonadism. He was previously seen in March for this issue. He has been on a regimen of injectable testosterone cypionate dosed 1 mL of 200mg/mL every 14 days. He is also on anastrozole 1 mg daily (but was supposed to be prescribed weekly). He denies any adverse effects from these medications. He does note improvement in his hypogonadalsymptoms on these medications. His last testosterone measurement was 1440 in May. His last CBC showed a hematocrit of 51.8 in May. His last PSA was 0.65 in May. His last estradiol was less than5 in May. These labs were drawn 3 days after injection. I changed his prescription for anastrozole dose to 1 mg weekly. He also has a history of erectile dysfunction and was seen for this issue in September for DDU. At that visit he was found to have mixed arteriogenic and venoocclusive erectile dysfunction. He also has Peyronie's disease and during that visit penile curvature was noted to be 20 degrees to the right and 20 degrees dorsal but he was unable to achieve erection to measure curvature accurately. He reports today that his ED remains sufficiently responsive to sildenafil at the 50 mg dose for sexual activity. At our last visit he noted a hinging with erection but from his description it was unclear if this was indeed a hinge deformity and the photos he brought in were inconclusive (nor do they demonstrate significant penile curvature). He also reported pain in his penis at the point where he had bending occurs, and said this pain is worse prior to ejaculation. I advised him to take sildenafil at the 100 mg dose and document what he describes as a hinge deformity on video and bring thisto our next visit. He says today that he forgot to video his penis but on further discussion today says he was confused about penile hinge deformity. He notes instead that he has a bend but no hinging, and that his curvature does not prevent penetration. He also has a history of acquired buried penis and the plan is to treat this once his other urologic issues have been successfully resolved. Today he notes that he remains interested in buried penis repair and that he is having penile hygiene issues due to his buried penis. He also notes significant bothersome scrotal webbing on the ventral surface of his penis. Past medical history is notable for MS, anxiety, hypertension, ADHD, back issues. He is also on aspirin for occasional pain. Past surgical history is denied. From a social perspective, he quit smoking in June and has 2-year history of smoking. Alcohol [...] normal respiratory effort. Chest rise is symmetric. Chest: There is no evidence of gynecomastia. [...] erythema. Ventral penile skin and scrotal skin has a mild degree of webbing. A digital rectal exam was deferred. A: This is a 37-year-old gentleman with [...] to his satisfaction and he expressed understanding. Thank you very much for allowing me to participate in his care. Please do not hesitate to contact me if you have any questions. documented in this encounter Plan of Treatment Upcoming Encounters Date Type Department Care Team (Late st Contact Info) Description 01/19/2024 1:00 PM EST Office Visit Urology at [facility] [address] [place] [phone] Desean Coronado MD [facility] [place] [address] 01/22/2024 12:30 PM EST Office Visit Neurosurgery at [facility] [place] [phone] Hema Escalante MD [facility] [place] [address] Liudmila [place] [address] 02/01/2024 12:00 PM EST Office [place] [phone] Georgette Monae PA [facility] [place] [address] 05/30/2024 10:30 AM EDT Appointment [place] [phone] documented as of this encounter Goals Goal Patient Goal Type Associated Problems Recent Progress Patient-Stated? Author prevention of MS relapse Patient Facing Action Plan Dionicio Almeida, [facility] documented as of this encounter Results * Estradiol (11/30/2023 10:46 AM EDT) Estradiol 9 11 to 43 pg/mL pg/mL 11/30/2023 11:[address] [facility] Blood VENOUS BLOOD SPECIMEN / Unknown Venipuncture / Unknown 11/30/2023 10:46 AM EDT 11/30/2023 10:46 AM EDT Desean Coronado MD CHEMISTRY ORDERABLES [facility] [place] [address] * PSA (Ultrasensitive) (11/30/2023 10:46 AM EDT) Prostate Specific Antigen (Ultrasensitive) 0.55 0.00-4.00 ng/mL ng/ml 11/30/2023 11:[address] [facility] Comment:The reference interv al (0 [...] 10:46 AM EDT 11/30/2023 10:46 AM EDT Narrative Authorizing Provider Result Alejandra Coronado MD CHEMISTRY ORDERABLES [facility] [place] [address] * Testosterone, total (11/30/2023 10:46 AM EDT) Testosterone 5.29 2.49 - 8.36 ng/ml 11/30/2023 2:[address] [facility] Blood VENOUS BLOOD SPECIMEN / Unknown Venipuncture / Unknown 11/30/2023 10:46 AM EDT 11/30/2023 10:46 AM EDT Narrative Authorizing Provider Result Alejandra Coronado MD CHEMISTRY ORDERABLES Performing Organization Address City/[facility]/ZIP Co de Phone Number [facility] [place] [address] * (ABNORMAL) CBC (with Diff) (11/30/2023 10:46 AM EDT) Pathologist [facility] White Blood Cell 6.38 4.00 - 9.50 x10(3)/mc L 11/30/2023 12:[address] [facility] Red Blood Cell 5.68(H) 4.58 - 5.54 x10(6)/mc L 11/30/2023 12:[address] [facility] Hemoglobin 16.4 13.7 - 16.5 g/dL 11/30/2023 12:[address] [facility] Hematocrit 49.2(H) 40.5 - 48.5 % 11/30/2023 12:[address] [facility] Mean Cell Volume 86.6 82.9 - 93.1 fL 11/30/2023 12:[address] [facility] Mean Cell Hemoglobin 28.9 27.5 - 32.1 pg 11/30/2023 12:15 PM [facility] Mean Cell Hemoglobin Concentration 33.3 32.0 - 35.7 g/dL 11/30/2023 12:15 PM [facility] Platelet 241 145 - 357 x10(3)/mc L 11/30/2023 12:15 PM [facility] Mean Platelet Volume 10.7 7.6 - 12.9 fL 11/30/2023 12:15 PM [facility] RDW Standard Deviation 39.0 36.0 - 45.0 fL 11/30/2023 12:15 PM [facility] RDW coefficient of variation 12.6 11.4 - 13.8 % 11/30/2023 12:15 PM [facility] NRBC% auto 0.0 % 11/30/2023 12:15 PM [facility] NRBC Absolute <0.01 <0.01 x10(3)/mc L 11/30/2023 12:15 PM [facility] Neutrophil % 58.6 % 11/30/2023 12:15 PM [facility] Neutrophil Absolute (ANC) - Automated 3.74 1.70 - 6.10 x10(3)/mc L 11/30/2023 12:15 PM [facility] Lymph % 30.6 % 11/30/2023 12:15 PM [facility] Lymph Absolute 1.95 0.90 - 3.20 x10(3)/mc L 11/30/2023 12:15 PM [facility] Monocyte % 7.7 % 11/30/2023 12:15 PM [facility] Monocyte Absolute 0.49 0.30 - 0.90 x10(3)/mc L 11/30/2023 12:15 PM [facility] Eos % 1.9 % 11/30/2023 12:15 PM [facility] Eos Absolute 0.12 0.00 - 0.40 x10(3)/mc L 11/30/2023 12:[address] [facility] Basophil % 0.6 % 11/30/2023 12:[address] [facility] Baso Absolute 0.04 0.00 - 0.10 x10(3)/mc L 11/30/2023 12:[address] [facility] Immature Gran % 0.6 % 12:[address] [facility] Immature Gran Absolute 0.04 0.00 - 0.04 x10(3)/mc L 11/30/2023 12:[address] [facility] Blood VENOUS BLOOD SPECIMEN / Unknown Venipuncture / Unknown 11/30/2023 10:46 AM EDT 11/30/2023 10:46 AM EDT Desean Coronado MD HEMATOLOGY ORDERABLE S [facility] [place] [address] documented in this encounter Visit Diagnoses Diagnosis Hypogonadism in male Abnormal results of function studies of other organs and systems Peyronie's disease Erectile dysfunction, unspecified erectile dysfunction type Acquired buried penis Other specified disorder of penis documented in this encounter Care Teams Nut Orchardist Relationship Specialty Start Date End Date Lamont Owusu MD [address] [place] [address] PCP - General Family Medicine 02/10/21 documented as of this encounter
--- OUTSIDE RECORDS SUMMARY | 2024-01-15 20:01 | XMS_ITS | Encounter Summary ---
Author Organization [facility] Address [facility] [place] [address] Care Team Providers Care Overnight Houseperson Name Role Phone Lamont Owusu MD Primary Care Provider [phone] [phone] Encounter Details Date Type Department Care Team (Late st Contact Info) Description 10/30/2023 Telephone Urology at [facility] [address] [place] [phone] Ana Maria Barbour LPN Social History Tobacco Use Types Packs/Day Years [...] Encounter - Ana Maria Barbour LPN - 10/30/2023 2:32 PM EDT Patient called, Health Assessment reviewed with patient. Patient reports he has no history of Anesthesia. Patient states he does sometimes feel sleepy or tired during the day. Patient reports his neck size is unknown and he is not sure if it is over 17 inches. Patient reports a history of high blood pressure which managed by Losartan 25 mg. Patient reports he does take controlled substances senior care for a chronic pain condition. Patient reports his PCP Lamont Owusu MD prescribes and monitors the prescriptions for Hysingla 20 mg daily, and Tramadol 50 mg which he can take up to 3 times daily. Patient verbalizes he has answered all questions to the best of his ability. Health assessment form dropped of in OR space scheduler office and message sent to Dr. Coronado, and Melissa Chandler. documented in this encounter Plan of Treatment Upcoming Encounters Date Type Department Care Team (Late st Contact Info) Description 01/19/2024 1:00 PM EST Office Visit Urology at [facility] [address] [phone] Desean Coronado MD [facility] [address] 01/22/2024 12:30 PM EST Office Visit Neurosurgery at [facility] [address] [place] [address] Hema Escalante MD [address] [facility] [place] [address] Liudmila Oates PA [address] [facility] [place] [address] 02/01/2024 12:00 PM EST [place] [phone] Georgette Monae PA [facility] [place] [address] 05/30/2024 10:30 AM EDT [place] [phone] documented as of this encounter Goals Goal Patient Goal Type Associated Problems Recent Progress Patient-Stated? Author prevention of MS relapse Patient Facing Action Plan Dionicio Almeida, [facility] documented as of this encounter Visit Diagnoses Not on filedocumented in this encounter Care Teams Overnight Houseperson Relationship Specialty Start Date End Date Lamont Owusu MD [address] [place] [address] PCP - General Family Medicine 02/10/21 documented as of this encounter
--- OUTSIDE RECORDS SUMMARY | 2024-01-15 20:01 | XMS_ITS | Encounter Summary ---
Author Organization [facility] [place] [address] Care Team Providers Care Sketch Liner Name Role Phone Lamont Owusu MD Primary Care Provider [phone] Encounter Details Date Type Department Care Team (Late st Contact Info) Description 06/21/2023 [place] [phone] Jackie Niño RN Social History Tobacco Use Types Packs/Day [...] Telephone Encounter - Jackie Niño RN - 06/21/2023 12:10 PM EDT ----- Message from Erick Chacon sent at 06/21/2023 11:58 AM EDT ----- Regarding: Received Wrong Prescription For Sharps Contact: Alyse Coronado, apparently whom ever did the renewal for the needles that I needed, didn't read mynote in the renewal quest under the syringes themselves, because there's wasn't a spot to just request the 18g x 1 1/2 so under the renewal for syringes, I stated I was all set on the syringes, I just need the 18g x 1 1/2 needles. Erick Becker. documented in this encounter Plan of Treatment Upcoming Encounters Date Type Department Care Team (Late st Contact Info) Description 01/19/2024 1:00 PM EST Office Visit Urology at [facility] [address] [place] [phone] Desean Coronado MD [facility] [place] [address] 01/22/2024 12:30 PM EST Office Visit Neurosurgery at [facility] [address] [place] [address] Hema Escalante MD [address] [facility] [place] [place] [address] Liudmila Oates PA [address] [facility] [place] [address] 02/01/2024 12:00 PM EST [place] [phone] Georgette Monae PA [facility] [place] [place] [address] 05/30/2024 10:30 AM EDT [place]oint[place] [phone] documented as of this encounter Goals Goal Patient Goal Type Associated Problems Recent Progress Patient-Stated? Author prevention of MS relapse Patient Facing Action Plan Dionicio Almeida, [facility] documented as of this encounter Visit Diagnoses Not on filedocumented in this encounter Care Teams Sketch Liner Relationship Specialty Start Date End Date Lamont Owusu MD [address] [place] [address] PCP - General Family Medicine 02/10/21 documented as of this encounter
--- OUTSIDE RECORDS SUMMARY | 2024-01-15 20:01 | XMS_ITS | Encounter Summary ---
Author Organization [facility] Address [facility] [place] [address] Care Team Providers Care Skip Load Driver Name Role Phone Lamont Owusu MD Primary Care Provider [phone] [phone] Reason for Visit * Reason Onset Date Comments Other 08/14/2023 MS flare up Encounter Details Date Type Department Care Team (Late st Contact Info) Description 08/14/2023 [place] [address] Erick York III, MD [facility] [place] [address] Other (MS flare up) Social History Tobacco Use Types Packs/Day Years [...] Telephone Encounter - Darinel-Audrey Nolan RN - 08/21/2023 12:23 PM EDT I phoned pt to f/u on how he is doing. He states that his symptoms are improving and he is feeling better. He denies any fever or illness. After speaking with TITI Lundy he states he is willing to give ocrevus a try. He states he will call his PCP to get the prevnar 20 vaccine. Pt instructed to let me know once he is vaccinated. Iinstructed pt that he needs to wait 4 weeks to start infusion after vaccine. Ocrevus start form sent to pt via my to complete. Pt instructed to let me know if he has any issues completing on line and I would mail him form. Plan: per above and pt agrees with plan and verbalizes understanding. * Telephone Encounter - Audrey Rausch RN - 08/15/2023 2:13 PM EDT Multiple Sclerosis Symptom Last Appointment: 05/25/23 Next Appointment: 09/11/23 Primary Question/Concern Today: Patient reports numbness from belly button to feet and pins and needles feeling in the balls of hisfeet. Pt reports he has had this feeling in his feet/legs off and on, usually once year. He states the last bad spell was when he was diagnosed. He reports he has not had numbness to his belly button [id number] when he was diagnosed. Pt also states that he read up on Ocrevus and is very nervous about it. He thinks he wants to go back on [employer]. I explained I would forward to for when he returns. Pt aware I will forwardmessage with current symptom concerns to covering provider in absence of . Current Symptoms: (for any positive/yes answer provide explanation) Changes in sensation: numbness from belly button to feet. Pins and needles feeling balls of his feet (patch of numbness also - worse left side) Changes in strength: legs feel heavy and he shuffles with his cane Changes in vision: vision is fuzzy ( he describes it as 3D) - this started the no double or burred vision When did symptoms start/or start to get worse: began August 01 and increased the Has pt had symptoms in past: has had numbness to belly button but not since diagnosis in 2019 What alleviates symptoms: What aggravates symptoms: heat Current Medications: Current Outpatient Medications on File Prior to Visit Medication Sig Dispense Refill gabapentin (Neurontin) 100 mg Capsule PO. 2 tabs in AM, 2 tabs in the afternoon, and 4 tabs nightly. (Patient taking differently: 400 mg 3 times daily.) 240 capsule 5 testosterone cypionate (DepoTESTOSTERONE Cypionate) (200mg/mL) injection INJECT 1 ML INTO THE MUSCLE EVERY 14 DAYS 6 mL 0 Needle, Disp, 18 G 18 gauge x 1 1/2 Needle Use 1 syringe weekly for IM testosterone injection 100 each 3 syringe with needle, disposable, 3 mL 22 gauge x 1 Syringe Use 1 syringe weekly for IM testosterone injection 12 each 3 [DISCONTINUED] anastrozole (Arimidex) 1 mg tablet Take 1 tablet by mouth daily. 12 tablet 3 baclofen (Lioresal) 10 mg tablet Take 1 tablet by mouth 3 times daily for 180 days. 90 tablet 5 cholecalciferol, Vitamin D3, 25 mcg (1,000 unit) Capsule Take 1 capsule by mouth Daily at Noon. sildenafiL (Viagra) 100 mg tablet Take 1 tablet by mouth as needed. 30 tablet 5 albuteroL 90 mcg/actuation HFA Aerosol Inhaler 4 times daily. Butrans 15 mcg/hour Patch Weekly PLACE 1 PATCH ON THE SKIN EVERY 7 DAYS busPIRone (Buspar) 15 mg tablet Take 7.5 mg by mouth 2 times daily. polyethylene glycoL (Miralax) 17 gram/dose Powder daily. losartan (Cozaar) 25 mg Tablet Take 25 mg by mouth daily. aspirin 325 mg Tablet Take 325 mg by mouth daily. diazePAM (VALIUM) 5 mg Tablet Take 1 tablet by mouth nightly as needed for Muscle spasms. 14 tablet0 traMADol (ULTRAM) 50 mg Tablet Take 1 tablet by mouth every 4 hours as needed for Pain. 60 tablet 0 b complex vitamins Capsule Take 1 capsule by mouth daily. methylphenidate (RITALIN) 20 mg Tablet Take 20 mg by mouth 3 times daily. 0 No current facility-administered medications on file prior to visit. GENERAL QUESTIONS (for any positive response note explanation) Any current sleep concerns: since symptoms it has been harder to sleep Any current appetite or eating concerns: No Any current bladder or bowel concerns: he states can't tell if he is moving bowels and it also feels like he can't empty his bladder like when he was diagnosed in 2019 Any current respiratory or cardiac concerns: No Any current movement/mobility concerns: legs heavy and shuffles with cane Any current pain concerns: No If yes please explain: Rate on scale of 1-10: Any new worries, stressors, or routine changes: Yes Any recent Illness/Injuries/Surgeries: No - denies fever, illness, injuries etc Plan/Intervention/Follow Up - Report forwarded to TITI Lundy for review and comment. Pt/calleraware they will be called back with input when available and to call back in the interim if additional questions or change arise before they hear back from this office. Pt/caller agreeable to this plan. * Telephone Encounter - Melissa Carrillo RN - 08/14/2023 8:56 AM EDT Copied from [facility] #[id number]. Topic: Specialty Dept CRMs - Triage >> Aug 14, 2023 8:43 AM Soila Lawrence wrote: Triage Message Specialist: Jaylen Suarez MD Relationship (if other than patient-full name): self Erick Degreenia Symptom: ms flare up Has patient experienced symptom before yes If patient has experienced symptom before, when was the last time this occurred last severe flare up was 2018 Is patient currently having symptom yes When did symptom begin August 01 Additional Comments: Erick states he started to experience symptoms around the that had increased in severity around the and have become very bad over the weekend. Erick is experiencing numbness from his belly button down to his feel all over, declines any one sided numbness or tingling. Erick is experiencing pins and needles feeling in the balls of his feet.Please return call to advise as soon as able documented in this encounter Plan of Treatment Upcoming Encounters Date Type Department Care Team (Late st Contact Info) Description 01/19/2024 1:00 PM EST Office Visit Urology at [facility] [address] [place] [phone] Desean Coronado MD [facility] [place] [address] 01/22/2024 12:30 PM EST Office Visit Neurosurgery at [facility] [address] [place] [address] Hema Escalante MD [address] [place] [address] Liudmila Oates PA [facility] [place] [address] 02/01/2024 12:00 PM EST [place] [phone] Georgette Monae PA [facility] [place] [address] 05/30/2024 10:30 AM EDT Appointment [place] [phone] documented as of this encounter Goals Goal Patient Goal Type Associated Problems Recent Progress Patient-Stated? Author prevention of MS relapse Patient Facing Action Plan Dionicio Almeida, [facility] documented as of this encounter Visit Diagnoses Not on filedocumented in this encounter Care Teams Skip Load Driver Relationship Specialty Start Date End Date Lamont Owusu MD [address] [place] [address] PCP - General Family Medicine 02/10/21 documented as of this encounter
--- OUTSIDE RECORDS SUMMARY | 2024-01-15 20:01 | XMS_ITS | Encounter Summary ---
Author Organization [facility] Address [facility] Melinda meyerиван [place] [address] Care Team Providers Care Category Development Analyst Name Role Phone Lamont Owusu MD Primary Care Provider [phone] [phone] Encounter Details Date Type Department Care Team (Latest Contact Info) Description 11/08/2023 Travel Social History Tobacco Use Types Packs/Day [...] 1:00 PM EST Office Visit Urology at [facility] [address] [place] [phone] Desean Coronado MD [facility] [place] [address] 01/22/2024 12:30 PM EST Office Visit Neurosurgery at [facility] [address] [place] [address] Hema Escalante MD [facility] [address] [place] [place] [address] 02/01/2024 12:00 PM EST [place] [phone] Georgette Monae PA [facility] [place] [address] 05/30/2024 10:30 AM EDT [place] [phone] documented as of this encounter Goals Goal Patient Goal Type Associated Problems Recent Progress Patient-Stated? Author prevention of MS relapse Patient Facing Action Plan Dionicio Almeida, [facility] documented as of this encounter Visit Diagnoses Not on filedocumented in this encounter Care Teams Category Development Analyst Relationship Specialty Start Date End Date Lamont Owusu MD [address] [place] [address] PCP - General Family Medicine 02/10/21 documented as of this encounter
--- OUTSIDE RECORDS SUMMARY | 2024-01-15 20:01 | XMS_ITS | Encounter Summary ---
Author Organization [facility] [address] Care Team Providers Care Barrel Raiser Name Role Phone Lamont Owusu MD Primary Care Provider [phone] [phone] Reason for Referral * Diagnostic Test (Routine) - Closed Specialty Diagnoses / Procedures Referred By Contac t Referred To Contact Radiology Diagnoses Multiple sclerosis Procedures MRI Thoracic Spine wwo Contrast Georgette Monae PA [facility] [place] [address] [place] [address] Referral ID Status Reason Start Date Expiration Date V isits Requested Visits Authorized [id number] Closed Specialty Service Requested 08/17/2023 02/15/2025 1 1 * Diagnostic Test (Routine) - Closed Specialty Diagnoses / Procedures Referred By Contac t Referred To Contact Radiology Diagnoses Multiple sclerosis Procedures MRI Brain wwo Contrast (Generic) Georgette Monae PA [facility] [place] [address] [place] [address] Referral ID Status Reason Start Date Expiration Date V isits Requested Visits Authorized [id number] Closed Specialty Service Requested 08/17/2023 02/15/2025 1 1 Reason for Visit * Diagnostic Test (Routine) - Closed Specialty Diagnoses / Procedures Referred By Mallorie swift Referred To Contact Radiology Diagnoses Multiple sclerosis Procedures MRI Brain wwo Contrast (Generic) Georgette Monae PA [facility] [place] [address] [facility] [place] [address] Referral ID Status Reason Start Date Expiration Date V isits Requested Visits Authorized [id number] Closed Specialty Service Requested 08/17/2023 02/15/2025 1 1 Encounter Details Date Type Department Care Team (Latest Contact Info) Description 09/08/2023 7:08 AM EDT - 09/08/2023 11:59 PM EDT Hospital [place] [address] Erick Flowers MD [facility] [place] [address] Multiple sclerosis Discharge Disposition: Home Social History [...] 1:00 PM EST Office Visit Urology at [facility] [address] [place] [phone] Desean Coronado MD [facility] [place] [address] 01/22/2024 12:30 PM EST Office Visit Neurosurgery at [facility] 10 [place] [address] Hema Escalante MD [address] [facility] [place] [address] Liudmila Oates PA [address] [facility] [place] [address] 02/01/2024 12:00 PM EST [place] [phone] Georgette Monae PA [facility] [place] [address] 05/30/2024 10:30 AM EDT [place]oint[place] [phone] documented as of this encounter Goals Goal Patient Goal Type Associated Problems Recent Progress Patient-Stated? Author prevention of MS relapse Patient Facing Action Plan Dionicio Almeida, [facility] [facility] documented as of this encounter Procedures Procedure Name Priority Date/Time Associated Diagnosis Comments MRI THORACIC SPINE WITH/WO CONTRAST Routine 09/08/2023 8:32 AM EDT Multiple sclerosis MRI BRAIN WWO CONTRAST (GENERIC) Routine 09/08/2023 8:32 AM EDT Multiple sclerosis documented in this encounter Results * MRI Thoracic Spine wwo Contrast (09/08/2023 8:32 AM EDT) [employer] Signature WORKSTATION ID [id number] [facility] Anatomical Region Laterality Modality T-spine Magnetic Resonan [...] who have questions please contact the health physician assistant primary care that requested your imaging first. ? Narrative 09/10/2023 2:51 PM EDT EXAMINATION: MRI [...] corpus callosum splenium. There is a new [id number] nonenhancing lesion along the lateral margin of [...] patients who have questions please contactthe health physician assistant primary care that requested your imaging first. Erick Flowers MD IMG MRI ORDERABLES * MRI Brain wwo Contrast (Generic) (09/08/2023 8:32 AM EDT) [employer] WORKSTATION ID [id number] [facility] Anatomical Region Laterality Modality Head Magnetic Resonan [...] who have questions please contact the health physician assistant primary care that requested your imaging first. ? Narrative 09/10/2023 2:51 PM EDT EXAMINATION: MRI [...] corpus callosum splenium. There is a new D4khcanh nonenhancing lesion along the lateral margin of [...] patients who have questions please contactthe health physician assistant primary care that requested your imaging first. Erick Flowers MD [facility] MRI ORDERABLES documented in this encounter Visit Diagnoses Diagnosis Multiple sclerosis documented in this encounter Administered Medications Inactive Administered Medications - up to 3 most recent administrations Medication Order MAR Action Action Date Dose Rate Site gadoterate meglumine (Dotarem) (0.5 mMol/mL) injection solution 0-100 mL 0-100 mL, Intravenous, ONCE PRN, 1 dose, Starting on Mon09/08/23 at 0832, Until Mon09/08/23 at 0832, Per Protocol, Radiology Contrast, Routine Given 09/08/2023 8:32 AM EDT 20 mLs documented in this encounter Care Teams Barrel Raiser Relationship Specialty Start Date End Date Lamont Owusu MD [address] [place] [address] [address] [facility] [address] [place] [address] PCP - General Family Medicine 02/10/21 documented as of this encounter
--- OUTSIDE RECORDS SUMMARY | 2024-01-15 20:01 | XMS_ITS | Encounter Summary ---
Author Organization [facility] Address [facility] [place] [address] Care Team Providers Care Valve Setter Name Role Phone Lamont Owusu MD Primary Care Provider [phone] [phone] Reason for Visit * Reason Comments Medication Refill Encounter Details Date Type Department Care Team (Late st Contact Info) Description 06/27/2023 [place] [address] Desean Coronado MD [facility] [place] [address] Hypogonadism in male Social History Tobacco Use [...] Encounter - Jackie Niño RN - 06/27/2023 10:19 AM EDT Last visit: 04/06/23 A: This is a 37-year-old [...] 1:00 PM EST Office Visit Urology at [facility] [address] [place] [phone] Desean Coronado MD [facility] [place] [address] 01/22/2024 12:30 PM EST Office Visit Neurosurgery at [facility] [place] [phone] Hema Escalante MD [address] [place] [address] Liudmila Oates PA [address] [facility] [place] [address] 02/01/2024 12:00 PM EST Office [place] [phone] Georgette Monae PA [facility] [place] [address] 05/30/2024 10:30 AM EDT Appointment [place] [phone] documented as of this encounter Goals Goal Patient Goal Type Associated Problems Recent Progress Patient-Stated? Author prevention of MS relapse Patient Facing Action Plan Dionicio Almeida, [facility] documented as of this encounter Visit Diagnoses Diagnosis Hypogonadism in male documented in this encounter Care Teams Valve Setter Relationship Specialty Start Date End Date Lamont Owusu MD [address] [place] [address] PCP - General Family Medicine 02/10/21 documented as of this encounter
--- OUTSIDE RECORDS SUMMARY | 2024-01-15 20:01 | XMS_ITS | Encounter Summary ---
Author Organization [facility] [place] [address] Care Team Providers Care Frit Burner Name Role Phone Lamont Owusu MD Primary Care Provider [phone] [phone] Reason for Visit * Reason Onset Date Comments Letter/Form 06/01/2023 Ocrevus start fo rm Encounter Details Date Type Department Care Team (Late st Contact Info) Description 06/01/2023 [place] [address] Erick York III, MD [facility] DR [place] [address] Letter/Form (Ocrevus start form) Social History Tobacco [...] encounter Miscellaneous Notes * Telephone Encounter - Audrey Lucas RN - 06/01/2023 10:52 AM EDT Ocrevus start form and patient pamphlet placed in outgoing mail to home address on file at request of Dr. York. I attempted to phone pt to discuss. There was no answer. Message left on voice mail to call back [phone]. documented in this encounter Plan of Treatment Upcoming Encounters Date Type Department Care Team (Late st Contact Info) Description 01/19/2024 1:00 PM EST Office Visit Urology at [facility] [address] [place] [phone] Desean Coronado MD [facility] [place] [address] 01/22/2024 12:30 PM EST Office Visit Neurosurgery at [facility] 10 [place] [phone] Hema Escalante MD [address] [facility] [place] [address] Liudmila Oates PA [address] [facility] [place] [address] 02/01/2024 12:00 PM EST [place] [phone] Georgette Monae PA [facility] [place] [address] 05/30/2024 10:30 AM EDT Appointment [place] [phone] documented as of this encounter Goals Goal Patient Goal Type Associated Problems Recent Progress Patient-Stated? Author prevention of MS relapse Patient Facing Action Plan Dionicio Almeida, [facility] documented as of this encounter Visit Diagnoses Not on filedocumented in this encounter Care Teams Frit Burner Relationship Specialty Start Date End Date Lamont Owusu MD [address] [place], [place] [address]Y [address] [address] PCP - General Family Medicine 02/10/21 documented as of this encounter
--- OUTSIDE RECORDS SUMMARY | 2024-01-15 20:01 | XMS_ITS | Encounter Summary ---
Author Organization [facility] Address [facility] Melinda [place]yerиван [place] [address] Care Team Providers Care Manager Banking Name Role Phone Lamont Owusu MD Primary Care Provider [phone] [phone] Reason for Visit * Reason Onset Date Comments Medication Refill 06/06/2023 Encounter Details Date Type Department Care Team (Late st Contact Info) Description 06/06/2023 [place] [address] Desean Coronado MD [facility] [place] [address] Social History Tobacco Use Types Packs/Day Years [...] Telephone Encounter - Jackie Niño RN - 06/06/2023 12:52 PM EDT Last visit: 04/06/23 A: This is [...] return to clinic to see me in the months for continued evaluation. Regarding his erectile [...] and all questions were answered to his satisfaction documented in this encounter Plan of Treatment Upcoming Encounters Date Type Department Care Team (Late st Contact Info) Description 01/19/2024 1:00 PM EST Office Visit Urology at [facility] [address] [place] [phone] Desean Coronado MD [facility] [address] 01/22/2024 12:30 PM EST Office Visit Neurosurgery at [facility] [address] [place] [phone] Hema Escalante MD [address] [place] [address] Liudmila Oates PA [facility] [place] [address] 02/01/2024 12:00 PM EST [place] [phone] Georgette Monae PA [facility] [place] [address] 05/30/2024 10:30 AM EDT [place]ointment [place] [phone] documented as of this encounter Goals Goal Patient Goal Type Associated Problems Recent Progress Patient-Stated? Author prevention of MS relapse Patient Facing Action Plan Dionicio Almeida, [facility] documented as of this encounter Visit Diagnoses Not on filedocumented in this encounter Care Teams Manager Banking Relationship Specialty Start Date End Date Lamont Owusu MD [address] [place] [address] PCP - General Family Medicine 02/10/21 documented as of this encounter
--- OUTSIDE RECORDS SUMMARY | 2024-01-15 20:01 | XMS_ITS | Encounter Summary ---
Author Organization [facility] [place] [address] Care Team Providers Care Mechanical Intern Name Role Phone Lamont Owusu MD Primary Care Provider [phone] [phone] Encounter Details Date Type Department Care Team (Late Contact Info) Description 09/15/2023 Telephone [place] [phone] Iris Gupta Social History Tobacco Use Types Packs/Day Years [...] encounter Miscellaneous Notes * Telephone Encounter - Iris Gupta - 09/15/2023 12:23 PM EDT 1st attempt to contact Pt: Reason for call: LVM to schedule OCREVUS [x] Left Message for Pt to return call to the Office Appt Notes: DAY1 & DAY15 RANDAL documented in this encounter Plan of Treatment Upcoming Encounters Date Type Department Care Team (Late st Contact Info) Description 01/19/2024 1:00 PM EST Office Visit Urology at [facility] [address] [place] [phone] Desean Coronado MD [facility] [place] [address] 01/22/2024 12:30 PM EST Office Visit Neurosurgery at [facility] 10 [place] [address] Hema Escalante MD [address] [facility] [place] [address] Liudmila Oaets PA [address] [facility] [place] [address] 02/01/2024 12:00 PM EST Office [place] [address] Georgette Monae PA [facility] [place] [address] 05/30/2024 10:30 AM EDT Appointment [place] [phone] documented as of this encounter Goals Goal Patient Goal Type Associated Problems Recent Progress Patient-Stated? Author prevention of MS relapse Patient Facing Action Plan Dionicio Almeida, [facility] documented as of this encounter Visit Diagnoses Not on filedocumented in this encounter Care Teams Mechanical Intern Relationship Specialty Start Date End Date Lamont Owusu MD [address] [place] [address] [address] PCP - General Family Medicine 02/10/21 documented as of this encounter
--- OUTSIDE RECORDS SUMMARY | 2024-01-15 20:01 | XMS_ITS | Encounter Summary ---
Author Organization [facility] Address [facility] [place] [address] Care Team Providers Care Disk Grinder Name Role Phone Lamont Owusu MD Primary Care Provider +1 [phone] Encounter Details Date Type Department Care Team (Latest Contact Info) Description 09/11/2023 9:40 AM EDT Laboratory Appointment Lab [address] [place] [phone] Multiple sclerosis Social History Tobacco Use Types [...] 1:00 PM EST Office Visit Urology at [place] [facility] [address] [place] [phone] Desean Coronado MD [facility] [place] [address] 01/22/2024 12:30 PM EST Office Visit Neurosurgery at [facility] [place] [address] Hema Escalante MD [address] [place] [address] Liudmila [place] [address] 02/01/2024 12:00 PM EST Office [place] [phone] Georgette Monae PA [facility] [place] [address] 05/30/2024 10:30 AM EDT Appointment [place] [phone] documented as of this encounter Goals Goal Patient Goal Type Associated Problems Recent Progress Patient-Stated? Author prevention of MS relapse Patient Facing Action Plan Dionicio Almeida, [facility] documented as of this encounter Procedures Procedure Name Priority Date/Time Associated Diagnosis Comments QUANTIFERON-TB GOLD Routine 09/11/2023 9 :31 AM EDT Multiple sclerosis documented in this encounter Results * QuantiFERON-TB Gold (09/11/2023 9:31 AM EDT) Quantiferon Nil 0.028 IU/mL [facility] QFT TB Ag1-Nil 0.017 IU/mL [facility] QFT TB Ag2-Nil 0.052 IU/mL [facility] Quantiferon Mitogen-Nil 9.972 IU/mL [facility] Quantiferon-TB Gold Negative Negative [facility] Quantiferon Tb Interp M. tuberculosis infection [...] affect immune function, or other immunological factors. [facility] Blood 09/11/2023 9:31 AM EDT 09/12/2023 7:33 AM EDT Narrative Resulting Agency Comment Spec In Lab Erick York III, MD CHEMISTRY ORDERAB LES [facility] [place] [id number] documented in this encounter Visit Diagnoses Diagnosis Multiple sclerosis documented in this encounter Care Teams Disk Grinder Relationship Specialty Start Date End Date Lamont Owusu MD [address] [place] [address] PCP - General Family Medicine 02/10/21 documented as of this encounter
--- OUTSIDE RECORDS SUMMARY | 2024-01-15 20:02 | XMS_ITS | Encounter Summary ---
Author Organization [facility] Address [facility] [place] [address] Care Team Providers Care Structural Ironworker Name Role Phone Lamont Owusu MD Primary Care Provider [phone] [phone] Reason for Visit * Reason Onset Date Comments Medication Refill 01/31/2023 Encounter Details Date Type Department Care Team (Late st Contact Info) Description 01/31/2023 [place] [address] Erick York III, MD [facility] [place] [address] Multiple sclerosis Social History Tobacco Use Types Packs/Day Years Used Date Smoking Tobacco: Former Cigarettes Q uit: 08/20/2018 Smokeless Tobacco: Never Alcohol Use Standard Drinks/Week Comments Not Currently 0 (1 standard drink = 0.6 oz pur e alcohol) Sex and Gender Information Value Date Recorded Sex Assigned at Male 06/03/2020 7:58 PM EDT Gender Identity Male 02/26/2022 11:00 AM EST Sexual Orientation Straight 06/03/2020 7: 58 PM EDT documented as of this encounter Miscellaneous Notes * Telephone Encounter - Jennie Rice MA - 02/02/2023 12:39 PM EST Prescription Renewal Request Name: Erick Chacon : 1985 Prescription(s) Requested: Requested Prescriptions Pending Prescriptions Disp Refills baclofen (Lioresal) 10 mg tablet 30 tablet 0 Sig: TAKE ONE TABLET BY MOUTH EVERY MORNING AND ONE TABLET EVERY EVENING Date of Encounter last in This Dept (If need an appointment send to secretaries to schedule): Next Encounter in This Dept: Visit date not found Date of Last Refill (for each medication): 01/31/23 30 tabs with 0 refills Medication category requirements (labs etc): Status of request: Refused No Known Allergies Jennie Rice MA 02/02/23 12:39 PM documented in this encounter Plan of Treatment Upcoming Encounters Date Type Department Care Team (Late st Contact Info) Description 01/19/2024 1:00 PM EST Office Visit Urology at [place] [facility] [address] [place] [phone] Desean Coronado MD [facility] [place] [address] 01/22/2024 12:30 PM EST Office Visit Neurosurgery at [facility] [address] [place] [address] Hema Escalante MD 10 [facility] [place] [address] Liudmila Oates PA 10 [facility] [place] [address] 02/01/2024 12:00 PM EST Office [place] [phone] Georgette Monae PA [facility] [place] [address] 05/30/2024 10:30 AM EDT Appointment [place] [phone] documented as of this encounter Goals Goal Patient Goal Type Associated Problems Recent Progress Patient-Stated? Author prevention of MS relapse Patient Facing Action Plan No Doherty, Dionicio D, [facility] documented as of this encounter Visit Diagnoses Diagnosis Multiple sclerosis documented in this encounter Care Teams Structural Ironworker Relationship Specialty Start Date End Date Lamont Owusu MD [address] [place] [address] PCP - General Family Medicine 02/10/21 documented as of this encounter
--- OUTSIDE RECORDS SUMMARY | 2024-01-15 20:02 | XMS_ITS | Encounter Summary ---
Author Organization [facility] Address [facility] [place]inda [place] [place] [address] Care Team Providers Care Director Corporate Security Name Role Phone Lamont Owusu MD Primary Care Provider [phone] [phone] Reason for Visit * Reason Onset Date Comments Medication Refill 07/05/2022 Encounter Details Date Type Department Care Team (Late st Contact Info) Description 07/05/2022 [place] [address] Erick York III, MD [facility] [place] [address] Multiple sclerosis Social History Tobacco Use Types [...] 1:00 PM EST Office Visit Urology at [place] [facility] [address] [place] [phone] Desean Coronado MD [facility] [place] [place] [address] 01/22/2024 12:30 PM EST Office Visit Neurosurgery at [facility] [address] [place] [address] Hema Escalante MD [address] [place] [address] Liudmila Oates PA [address] [place] [address] 02/01/2024 12:00 PM EST Office [place] [phone] Georgette Monae PA [facility] [place] [address] 05/30/2024 10:30 AM EDT Appointment [place] [phone] documented as of this encounter Goals Goal Patient Goal Type Associated Problems Recent Progress Patient-Stated? Author prevention of MS relapse Patient Facing Action Plan Dionicio Almeida, [facility] documented as of this encounter Visit Diagnoses Diagnosis Multiple sclerosis documented in this encounter Care Teams Director Corporate Security Relationship Specialty Start Date End Date Lamont Owusu MD [address] [place] [address] PCP - General Family Medicine 02/10/21 documented as of this encounter
--- OUTSIDE RECORDS SUMMARY | 2024-01-15 20:02 | XMS_ITS | Encounter Summary ---
Author Organization [facility] Address [facility] [place] [place] [address] Care Team Providers Care Contracting Support Specialist Name Role Phone Lamont Owusu MD Primary Care Provider [phone] [phone] Reason for Visit * Reason Onset Date Comments Medication Refill 03/09/2023 Encounter Details Date Type Department Care Team (Late st Contact Info) Description 03/09/2023 [place] [address] Erick York III, MD [facility] [place] [address] Multiple sclerosis Social History Tobacco Use Types [...] Telephone Encounter - Jennie Rice MA - 03/09/2023 11:51 AM EST Prescription Renewal Request Name: Erick Chacon : 1985 Prescription(s) Requested: Requested Prescriptions Pending Prescriptions Disp Refills baclofen (Lioresal) 10 mg tablet 60 tablet 0 Sig: TAKE ONE TABLET BY MOUTH EVERY MORNING AND ONE TABLET EVERY EVENING Date of Encounter last in This Dept (If need an appointment send to secretaries to schedule): 02/03/21 Jaylen Next Encounter in This Dept: 05/29/2023 Date of Last Refill (for each medication): 02/21/23 30 tabs with 0 refills Medication category requirements (labs etc): n/a Status of request: Pended No Known Allergies Jennie Rice MA 03/09/23 11:54 AM documented in this encounter Plan of Treatment Upcoming Encounters Date Type Department Care Team (Late st Contact Info) Description 01/19/2024 1:00 PM EST Office Visit Urology at [place] [facility] [address] [place] [phone] Desean Coronado MD [facility] [place] [address] 01/22/2024 12:30 PM EST Office Visit Neurosurgery at [facility] [address] [place] [address] Hema Esaclante MD 10 [facility] [place] [address] Liudmila Oates PA 10 [facility] [place] [address] 02/01/2024 12:00 PM EST [place] [phone] Georgette Monae PA [facility] [place] [address] 05/30/2024 10:30 AM EDT [place] [phone] documented as of this encounter Goals Goal Patient Goal Type Associated Problems Recent Progress Patient-Stated? Author prevention of MS relapse Patient Facing Action Plan Dionicio Almeida, [facility] documented as of this encounter Visit Diagnoses Diagnosis Multiple sclerosis documented in this encounter Care Teams Contracting Support Specialist Relationship Specialty Start Date End Date Lamont Owusu MD [address] [place] [address] PCP - General Family Medicine 02/10/21 documented as of this encounter
--- OUTSIDE RECORDS SUMMARY | 2024-01-15 20:02 | XMS_ITS | Encounter Summary ---
Author Organization [facility] Address [facility] [place] [address] Care Team Providers Care Help Desk Operator Name Role Phone Lamont Owusu MD Primary Care Provider [phone] [phone] Encounter Details Date Type Department Care Team (Latest Contact Info) Description 09/14/2022 Travel Social History Tobacco Use Types Packs/Day [...] 1:00 PM EST Office Visit [facility] at [place] [facility] [address] [place] [phone] Desean Coronado MD [facility] [place] [address] 01/22/2024 12:30 PM EST Office Visit Neurosurgery at [facility] 10 [place] [phone] Hema Escalante MD [facility] [place] [address] [place] [address] 02/01/2024 12:00 PM EST [place] [phone] Georgette Monae PA [facility] [place] [address] 05/30/2024 10:30 AM EDT [place] [phone] documented as of this encounter Goals Goal Patient Goal Type Associated Problems Recent Progress Patient-Stated? Author prevention of MS relapse Patient Facing Action Plan Dionicio Almeida, [facility] documented as of this encounter Visit Diagnoses Not on filedocumented in this encounter Care Teams Help Desk Operator Relationship Specialty Start Date End Date Lamont Owusu MD [facility] [address] [place] [address] PCP - General Family Medicine 02/10/21 documented as of this encounter
--- OUTSIDE RECORDS SUMMARY | 2024-01-15 20:02 | XMS_ITS | Encounter Summary ---
Author Organization [facility] Address [facility] Melinda [place]ив[address] [place] [address] Care Team Providers Care Pattern Drum Maker Name Role Phone Lamont Owusu MD Primary Care Provider +1 [phone] Reason for Visit * Reason Comments Follow-up Encounter Details Date Type Department Care Team (Late st Contact Info) Description 09/14/2022 11:40 AM EDT [place] [address] Desean Coronado MD [facility] [place] [address] Low libido; Peyronie's disease; Erectile dysfunction, unspecified erectile dysfunction type; Acquired buried penis; Hypogonadism in male Social History Tobacco Use [...] Sign Reading Time Taken Comments Blood Pressure 121/79 09/14/2022 11:40 AM EDT Pulse 70 09/14/2022 11:40 AM EDT Temperature - - Respiratory Rate 14 09/14/2022 11:40 AM EDT Oxygen Saturation - - Inhaled Oxygen Concentration - - Weight 92.5 kg (204 lb) 09/14/2022 11:40 AM EDT Height 175.3 cm (5' 9) 09/14/2022 11:40 AM EDT Body Mass Index 30.13 09/14/2022 11:40 AM EDT documented in this encounter Progress Notes * Desean Coronado MD - 09/14/2022 11:40 AM EDT S: I saw Mr. Chacon in follow-up for his history of erectile dysfunction, Peyronie's disease, acquired buried penis, and low libido. He was previously seen in May for these issues. He has been on a regimen of sildenafil. He denies any adverse effects from this medication, specifically pain, headaches, priapism or other concerning findings. He does note improvement in his erectile dysfunctionon this medication. At 100 mg and 50 mg he had sufficient erectile quality for sexual activity. Perhis report he had increased penile pain with a more rigid erection, likely due to his Peyronie's disease. Neither curvature nor suprapubic fat pad precluded sexual activity. In his low libido, at our last visit I recommended obtaining a free and total testosterone to evaluate further. This returned at 145 in July, and thus he had further labs for baseline evaluation and confirmation. Repeat testosterone was 0.9 in July drawn at 10 AM. PSA was 0.37 in July. CBC showed ahematocrit of 40.2 in July. LH was 2.4 in July. Prolactin was 8.3 in July. Estradiol was 17 in July. At our last visit he also noted a sensation of incomplete emptying and PVR was 139 mL 2.5 hours after voiding. There have been no changes to his past medical, surgical, or social histories since his last visit.His allergies and medications were reviewed. A review of systems was performed and he has no pertinent positives, except for those listed in thehistory of present illness. O: On physical exam today he is [...] normal respiratory effort. Chest rise is symmetric. Extremities: Extremities do not demonstrate clubbing, cyanosis or edema. His abdomen is nondistended. A: This is a 36-year-old gentleman with a history of erectile dysfunction now successfully treated with sildenafil. He also has Peyronie's disease. He also has acquired buried penis. He also has symptomatic hypogonadism.. P: Regarding his erectile dysfunction, he is doing well on his current medication. There are no adverse symptoms or issues with his medication regimen at this point. I have advised him to continue onthis medication and to contact me if he has any further issues. Regarding his Peyronie's disease, we discussed proceeding with intracavernosal injection and duplexDoppler ultrasound to evaluate his penis curvature in more detail as he is interested in pursuing further management of this issue. I explained the procedure to him, including the risk of priapism, and he wishes to proceed. My staff will have this scheduled to be performed in September. We discussed the role of testosterone in male physiology. We also discussed how hypogonadism influences this physiology. We discussed options for testosterone replacement therapy in detail today. These could include treatment with clomiphene to improve his own testosterone production versus exogenous testosterone replacement therapy. Risks of clomiphene include tachyphylaxis, vasomotor flushing, abdominal pelvic discomfort, nausea and vomiting, breast discomfort, headache, visual symptoms, and venous thrombosis. These were listed in declining order of prevalence and all are reported in very low percentages in the literature. Exogenous testosterone methods could include gels (with specific risk of medication transference), injections, or testosterone pellets (with specific risk of periprocedural bruising if on anticoagulation medications). We also discussed newer oral testosterone formulations and I explained that I am a waiting long-term data on efficacy and safety before prescribing these medications. We also discussed intranasal testosterone gel and I explained the dose frequency needed as well as potential side effects like nasal irritation and runny nose. We had an extensive and detailed discussion regarding the costs, risks and benefits of each method. We also discussed the potential use of aromatase inhibitors if clinically appropriate. We talked about the impact of testosterone replacement therapy on spermatogenesis and fertility. I explained that clomiphene therapy will improve fertility and increase testicular volume whereas treatment with exogenous testosterone will compromise fertility and reduce testicular volume. We discusse d the varied (and often protracted) durations of time to return of normal spermatogenesis followingcessation of testosterone replacement therapy in the literature. We discussed the risk of venothromboembolic events (VTE) and cardiovascular events (myocardial infarction, stroke, cardiovascular-related mortality) with testosterone replacement therapy. I explainedthat systematic reviews of the literature do not show increased incidence of VTE with testosterone replacement therapy. I also explained that there is no definitive evidence linking testosterone replacement therapy to an increase or decrease in cardiovascular events. We will proceed with testosterone replacement therapy with an appropriate method of his choosing atour next visit if he so desires. He is going to decide between clomiphene (in order to preserve fertility) or testosterone replacement therapy (if he has no interest in future fertility). We discussed the need for follow-up labs 6 to 8 weeks after initiation of therapy and every 6 months thereafter. I explained that testosterone, CBC, and PSA will also be followed every 6 months once testosteronetherapy has started. I explained the importance of the office visits associated with these lab checks, in order to assess for symptom improvement, medication efficacy, and any adverse medication effects. I further explained the rationale for monitoring these lab values. I explained that testosterone levels are checked to evaluate the adequacy of his medication regimen. I explained that CBCs are checked to monitor hematocrit levels and to evaluate for polycythemia and risk of VTE. I explained that PSA values are checked to screen for prostate cancer, and that any future evidence of concern for prostate cancer with PSA screening will warrant temporary or permanent cessation of testosterone replacement therapy and further investigation regarding prostate cancer. All questions were answered to his satisfaction, and he expressed understanding. Thank you very much for allowing me to participate in his care. Please do not hesitate to contact me if you have any questions. documented in this encounter Plan of Treatment Upcoming Encounters Date Type Department Care Team (Late st Contact Info) Description 01/19/2024 1:00 PM EST Office Visit Urology at [place] [facility] [address] [place] [phone] Desean Coronado MD [facility] [place] [address] 01/22/2024 12:30 PM EST Office Visit Neurosurgery at [facility] [address] [place] [address] Hema Escalante MD [address] [place] [address] Liudmila Oates PA [address] [place] [address] 02/01/2024 12:00 PM EST Office [place] [phone] Georgette Monae PA [facility] [place] [address] 05/30/2024 10:30 AM EDT Appointment [place] [phone] documented as of this encounter Goals Goal Patient Goal Type Associated Problems Recent Progress Patient-Stated? Author prevention of MS relapse Patient Facing Action Plan Dionicio Almeida, [facility] documented as of this encounter Visit Diagnoses Diagnosis Low libido Peyronie's disease Erectile dysfunction, unspecified erectile dysfunction type Acquired buried penis Other specified disorder of penis Hypogonadism in male documented in this encounter Care Teams Pattern Drum Maker Relationship Specialty Start Date End Date Lamont Owusu MD [address] [place] [address] [address] [place] [address] PCP - General Family Medicine 02/10/21 documented as of this encounter
--- OUTSIDE RECORDS SUMMARY | 2024-01-15 20:02 | XMS_ITS | Encounter Summary ---
Author Organization [facility] [place] [address] Care Team Providers Care Mask Layout Designer Name Role Phone Lamont Owusu MD Primary Care Provider [phone] [phone] Encounter Details Date Type Department Care Team (Late st Contact Info) Description 08/09/2022 [place] [phone] Yari Marquez RN Social History Tobacco Use Types Packs/Day [...] encounter Miscellaneous Notes * Telephone Encounter - Yari Marquez RN - 08/09/2022 2:09 PM EDT I called the patient to let him know the results of his testosterone level was low per Dr. Coronado. The patient would like to do the repeat testing. He will do this on 08/12/22 at 3L in the morning. * Telephone Encounter - Yari Marquez RN - 08/09/2022 2:08 PM EDT ----- Message from Desean Coronado MD sent at 08/09/2022 2:03 PM EDT ----- Please let him know testosterone level was low and I would recommend getting repeat testosterone, PSA, LH, estradiol, prolactin, and CBC to evaluate further. If he wishes to do so please order these and I will sign them. ----- Message ----- From: Mert, [facility] Sent: 08/09/2022 1:40 PM EDT To: Desean Coronado MD documented in this encounter Plan of Treatment Upcoming Encounters Date Type Department Care Team (Late st Contact Info) Description 01/19/2024 1:00 PM EST Office Visit Urology at [address] [phone] Desean Coronado MD [facility] [place] [address] 01/22/2024 12:30 PM EST Office Visit Neurosurgery at [facility] [address] [place] [address] Hema Escalante MD 10 [facility] [place] [address] Liudmila Oates PA 10 [facility] [place] [address] 02/01/2024 12:00 PM EST [place] [phone] Georgette Monae PA [facility] [place] [place] [address] 05/30/2024 10:30 AM EDT [place] [phone] documented as of this encounter Goals Goal Patient Goal Type Associated Problems Recent Progress Patient-Stated? Author prevention of MS relapse Patient Facing Action Plan Dionicio Almeida, [facility] documented as of this encounter Visit Diagnoses Not on filedocumented in this encounter Care Teams Mask Layout Designer Relationship Specialty Start Date End Date Lamont Owusu MD [address] [place] [address] PCP - General Family Medicine 02/10/21 documented as of this encounter
--- OUTSIDE RECORDS SUMMARY | 2024-01-15 20:02 | XMS_ITS | Encounter Summary ---
Author Organization [facility] Address [facility] [place] [address] Care Team Providers Care Cath Lab Nurse Name Role Phone Lamont Owusu MD Primary Care Provider +1 [phone] Encounter Details Date Type Department Care Team (Latest Contact Info) Description 04/06/2023 Travel Social History Tobacco Use Types Packs/Day [...] 1:00 PM EST Office Visit Urology at [facility] [address] [place] [phone] Desean Coronado MD [facility] [place] [address] 01/22/2024 12:30 PM EST Office Visit Neurosurgery at [facility] 10 [place] [phone] Hema Escalante MD [facility] [place] [address] [place] [address] 02/01/2024 12:00 PM EST Office [place] [phone] Georgette Monae PA [facility] [place] [address] 05/30/2024 10:30 AM EDT Appointment [place] [phone] documented as of this encounter Goals Goal Patient Goal Type Associated Problems Recent Progress Patient-Stated? Author prevention of MS relapse Patient Facing Action Plan Dionicio Almeida, [facility] documented as of this encounter Visit Diagnoses Not on filedocumented in this encounter Care Teams Cath Lab Nurse Relationship Specialty Start Date End Date Lamont Owusu MD [address] [place] [address] PCP - General Family Medicine 02/10/21 documented as of this encounter
--- OUTSIDE RECORDS SUMMARY | 2024-01-15 20:02 | XMS_ITS | Encounter Summary ---
Author Organization [facility] Address [facility] [place] [address] Care Team Providers Care Certified Court/Medical Interpreter Name Role Phone Lamont Owusu MD Primary Care Provider [phone] [phone] Reason for Visit * Reason Onset Date Comments Medication Refill 10/06/2022 Encounter Details Date Type Department Care Team (Late st Contact Info) Description 10/06/2022 [place] [address] Erick York III, MD [facility] [place] [address] Multiple sclerosis Social History Tobacco Use Types [...] encounter Miscellaneous Notes * Telephone Encounter - Susan Gamez RN - 10/07/2022 6:04 AM EDT Prescription Renewal Request Name: Erick Chacon : 1985 Prescription(s) Requested: Requested Prescriptions Pending Prescriptions Disp Refills baclofen (Lioresal) 10 mg tablet 60 tablet 1 Sig: TAKE ONE TABLET BY MOUTH EVERY MORNING AND ONE TABLET EVERY EVENING Date of Last Encounter: 02/03/21 Erick Chacon is a 35 y.o. man with relapsing multiple sclerosis previously on Tecfidera, stopped within the last 2 months due to adverse side effects (flushing). Now presenting with new onset/recurrence of decreased sensation below mid thoracic region. Neurological examination notable for decreased vibration sensation on the left more than right lower extremity. He had similar prior examination findings in the past. Interestingly, pin sensation is decreased in the mid thoracic region, butintact in the legs which may suggest nerve root impingement in the thoracic region bilaterally suchas with a large disc. He has history of T9-T10 spinal canal stenosis (moderate) with eccentric discprotrusion affecting right more than left. Next Encounter: 10/20/2022 Date of Last Refill: 08/04/22 Status of request: Pended No Known Allergies Susan Gamez RN 10/07/22 6:05 AM documented in this encounter Plan of Treatment Upcoming Encounters Date Type Department Care Team (Late st Contact Info) Description 01/19/2024 1:00 PM EST Office Visit Urology at [facility] [address] [place] [phone] Desean Coronado MD [facility] [place] [address] 01/22/2024 12:30 PM EST Office Visit Neurosurgery at [facility] 10 [place] [address] Hema Escalante MD [facility] [place] [address] Liudmila Oates PA [facility] [place] [address] 02/01/2024 12:00 PM EST [place] [address] Georgette Monae PA [facility] [place] [address] 05/30/2024 10:30 AM EDT [place] [address] documented as of this encounter Goals Goal Patient Goal Type Associated Problems Recent Progress Patient-Stated? Author prevention of MS relapse Patient Facing Action Plan Dionicio Almeida, [facility] documented as of this encounter Visit Diagnoses Diagnosis Multiple sclerosis documented in this encounter Care Teams Certified Court/Medical Interpreter Relationship Specialty Start Date End Date Lamont Owusu MD [address] [place] [address] PCP - General Family Medicine 02/10/21 documented as of this encounter
--- OUTSIDE RECORDS SUMMARY | 2024-01-15 20:02 | XMS_ITS | Encounter Summary ---
Author Organization [facility] Melinda [place] [place] [address] Care Team Providers Care Food Service Counter Clerk Name Role Phone Lamont Owusu MD Primary Care Provider [phone] [phone] Encounter Details Date Type Department Care Team (Late st Contact Info) Description 09/07/2022 Telephone Urology at [facility] [place] [address] Desean Coronado MD [facility] [place] [address] Social History Tobacco Use Types Packs/Day Years [...] encounter Miscellaneous Notes * Telephone Encounter - Jag Atkins - 09/07/2022 8:43 AM EDTSummary: time change LMOM for pt to call back to confirm appt time change to 4:20pm with Dr. Coronado documented in this encounter Plan of Treatment Upcoming Encounters Date Type Department Care Team (Late st Contact Info) Description 01/19/2024 1:00 PM EST Office Visit Urology at [facility] [address] [place] [phone] Desean Coronado MD [facility] [place] [address] 01/22/2024 12:30 PM EST Office Visit Neurosurgery at [facility] 10 [place] [address] Hema Escalante MD [address] [facility] [place] [address] Liudmila Oates PA [address] [facility] [place] [address] 02/01/2024 12:00 PM EST [place] [address] Georgette Monae PA [facility] [place] [address] 05/30/2024 10:30 AM EDT [place] [address] documented as of this encounter Goals Goal Patient Goal Type Associated Problems Recent Progress Patient-Stated? Author prevention of MS relapse Patient Facing Action Plan Dionicio Almeida, [facility] documented as of this encounter Visit Diagnoses Not on filedocumented in this encounter Care Teams Food Service Counter Clerk Relationship Specialty Start Date End Date Lamont Owusu MD [address] [place] [address] [address] [place] [address] PCP - General Family Medicine 02/10/21 documented as of this encounter
--- OUTSIDE RECORDS SUMMARY | 2024-01-15 20:02 | XMS_ITS | Encounter Summary ---
Author Organization [facility] [place] [address] Care Team Providers Care Transmissions Systems Operator Name Role Phone Lamont Owusu MD Primary Care Provider [phone] [phone] Encounter Details Date Type Department Care Team (Late st Contact Info) Description 01/19/2023 [place] [address] Desean Coronado MD [facility] [address] Hypogonadism in male Social History Tobacco Use [...] 1:00 PM EST Office Visit Urology at [facility] [address] [place] [phone] Desean Coronado MD [facility] [place] [address] 01/22/2024 12:30 PM EST Office Visit Neurosurgery at [facility] [address] [place] [address] Hema Escalante MD [address] [place] [address] [place] [address] 02/01/2024 12:00 PM EST [place] [address] Georgette Monae PA [facility] [place] [address] 05/30/2024 10:30 AM EDT [place] [phone] documented as of this encounter Goals Goal Patient Goal Type Associated Problems Recent Progress Patient-Stated? Author prevention of MS relapse Patient Facing Action Plan Dionicio Almeida, [facility] documented as of this encounter Visit Diagnoses Diagnosis Hypogonadism in male documented in this encounter Care Teams Transmissions Systems Operator Relationship Specialty Start Date End Date Lamont Owusu MD [address] [place] [address] PCP - General Family Medicine 02/10/21 documented as of this encounter
--- OUTSIDE RECORDS SUMMARY | 2024-01-15 20:02 | XMS_ITS | Encounter Summary ---
Author Organization [facility] [place]inda [place] [address] Care Team Providers Care Federal Mediator Name Role Phone Lamont Owusu MD Primary Care Provider [phone] [phone] Reason for Visit * Reason Onset Date Comments Medication Refill 10/26/2022 Encounter Details Date Type Department Care Team (Late st Contact Info) Description 10/26/2022 [place] [address] Desean Coronado MD [facility] [place] [address] Social History Tobacco Use Types Packs/Day Years [...] 1:00 PM EST Office Visit Urology at [facility] [address] [place] [phone] Desean Coronado MD [facility] [place] [address] 01/22/2024 12:30 PM EST Office Visit Neurosurgery at [facility] 10 [place] [address] Hema Escalante MD [address] [place] [address] Liudmila Oates PA [address] [place] [address] 02/01/2024 12:00 PM EST Office [place] [phone] Georgette Monae PA [facility] [place] [address] 05/30/2024 10:30 AM EDT [place]ointment [place] [phone] documented as of this encounter Goals Goal Patient Goal Type Associated Problems Recent Progress Patient-Stated? Author prevention of MS relapse Patient Facing Action Plan Dionicio Almeida, [facility] documented as of this encounter Visit Diagnoses Not on filedocumented in this encounter Care Teams Federal Mediator Relationship Specialty Start Date End Date Lamont Owusu MD [address] [place] [address] PCP - General Family Medicine 02/10/21 documented as of this encounter
--- OUTSIDE RECORDS SUMMARY | 2024-01-15 20:02 | XMS_ITS | Encounter Summary ---
Author Organization [facility] Address [facility] [place] [address] Care Team Providers Care Commercial Food Instructor Name Role Phone Lamont Owusu MD Primary Care Provider [phone] [phone] Encounter Details Date Type Department Care Team (Latest Contact Info) Description 10/06/2022 Travel Social History Tobacco Use Types Packs/Day [...] 1:00 PM EST Office Visit Urology at [facility] [address] [place] [phone] Desean Coronado MD [facility] [place] [address] 01/22/2024 12:30 PM EST Office Visit Neurosurgery at [facility] 10 [place] [phone] Hema Escalante MD [facility] [place] [address] [place] [address] 02/01/2024 12:00 PM EST [place] [phone] Georgette Monae PA [facility] [place] [address] 05/30/2024 10:30 AM EDT [place] [address] documented as of this encounter Goals Goal Patient Goal Type Associated Problems Recent Progress Patient-Stated? Author prevention of MS relapse Patient Facing Action Plan Dionicio Almeida, [facility] documented as of this encounter Visit Diagnoses Not on filedocumented in this encounter Care Teams Commercial Food Instructor Relationship Specialty Start Date End Date Lamont Owusu MD [facility] [address] [place] [address] PCP - General Family Medicine 02/10/21 documented as of this encounter
--- OUTSIDE RECORDS SUMMARY | 2024-01-15 20:02 | XMS_ITS | Encounter Summary ---
Author Organization [facility] [place] [address] Care Team Providers Care Rebeamer Name Role Phone Lamont Owusu MD Primary Care Provider [phone] [phone] Encounter Details Date Type Department Care Team (Late st Contact Info) Description 08/09/2022 Orders [place] [address] Desean Coronado MD [facility] [place] [address] Low libido Social History Tobacco Use Types Packs/Day Years [...] 1:00 PM EST Office Visit Urology at [facility] [address] [place] [phone] Desean Coronado MD [facility] [place] [address] 01/22/2024 12:30 PM EST Office Visit Neurosurgery at [facility] [address] [place] [address] Hema Escalante MD [address] [place] [address] Liudmila Oates PA [address] [address] 02/01/2024 12:00 PM EST Office [place] [address] Georgette Monae PA [facility] [place] [place] [address] 05/30/2024 10:30 AM EDT Appointment [place] [address] documented as of this encounter Goals Goal Patient Goal Type Associated Problems Recent Progress Patient-Stated? Author prevention of MS relapse Patient Facing Action Plan Dionicio Almeida, [facility] documented as of this encounter Results * (ABNORMAL) Testosterone, total (08/12/2022 10:05 AM EDT) [facility] Testosterone 0.90(L) 2.49 - 8.36 ng/mL [facility] Comment: Pediatric Reference Ranges: ? [...] Jennie Marissa Testosterone II 12/2021, v2.0 Blood 08/12/2022 10:0 5 AM EDT 08/12/2022 10:12 AM EDT Narrative Resulting Agency Comment Spec In Lab Desean Coronado MD CHEMISTRY ORDERABLES Performing Organization Address [facility] Phone Number [facility] [place] [address] * PSA (Ultrasensitive) (08/12/2022 10:05 AM EDT) Prostate Specific Antigen (Ultrasensitive) 0.37 0.00 - 4.00 ng/mL [facility] Comment: PLEASE NOTE: The above reference interval is intended for healthy males with an intact prostate. Values within this reference interval may indicate recurrence in men who have undergone radical prostatectomy. This result was generated using a Jennie Marissa immunoassay. ??Results obtained from other methods or manufacturers cannot be used interchangeably with this method. Blood 08/12/2022 10:0 5 AM EDT 08/12/2022 10:13 AM EDT Narrative Resulting Agency Comment Spec In Lab Desean Coronado MD CHEMISTRY ORDERABLES Performing Organization Address City/State/[facility] Co de Phone Number [facility] [place] [address] * Estradiol (08/12/2022 10:05 AM EDT) Estradiol 17 pg/mL [facility] Comment: Reference ranges: Males: Adult: ? 11 to 43 pg/mL Females: Non- females: ?Follicular: ??12-233 pg/mL ?Ovulation: ?? 41-398 pg/mL ?Luteal: ?22-341 pg/mL ?Postmenopausal: ?? <5 - 138 pg/mL females: ?1st trimester: ??154-3243 pg/mL ?2nd trimester: ??1561-25913 pg/mL ?3rd trimester: ??8525- >12054 pg/mL Blood 08/12/2022 10:0 5 AM EDT 08/12/2022 10:12 AM EDT Narrative Resulting Agency Comment Spec In Lab Desean Coronado MD CHEMISTRY ORDERABLES Performing Organization Address [facility] Co de Phone Number [facility] [place] [address] * Prolactin (08/12/2022 10:05 AM EDT) Prolactin 8.3 4.0 - 15.2 ng/mL [facility] Blood 08/12/2022 10:0 5 AM EDT 08/12/2022 10:12 AM EDT Narrative Resulting Agency Comment Spec In Lab Desean Coronado MD CHEMISTRY ORDERABLES Performing Organization Address [facility] Co de Phone Number [facility] [place] [address] * Luteinizing Hormone (08/12/2022 10:05 AM EDT) Luteinizing Hormone 2.4 1.7 - 8.6 mlU/ML [facility] Comment: Reference Ranges Male: ? 1.7-8.6 mIU/mL Female ?? Follicular: ?2.4-12.6 mIU/mL ?? Ovulation: ? 14.0-95.6 mIU/mL ?? Luteal: ?1.0-11.4 mIU/mL ?? Postmenopausal: ?7.7-58.5 mIU/mL Blood 08/12/2022 10:0 5 AM EDT 08/12/2022 10:12 AM EDT Narrative Resulting Agency Comment Spec In Lab Desean Coronado MD CHEMISTRY ORDERABLES Performing Organization Address City/State/[facility] Co de Phone Number [facility] [place] [address] documented in this encounter Visit Diagnoses Diagnosis Low libido documented in this encounter Care Teams Rebeamer Relationship Specialty Start Date End Date Lamont Owusu MD [address] [place] [address] PCP - General Family Medicine 02/10/21 documented as of this encounter
--- OUTSIDE RECORDS SUMMARY | 2024-01-15 20:02 | XMS_ITS | Encounter Summary ---
Author Organization [facility] Address [facility] [place] [address] Care Team Providers Care Diesel Engine Fitter Name Role Phone Lamont Owusu MD Primary Care Provider [phone] [phone] Reason for Visit * Reason Onset Date Comments Medication Refill 04/09/2023 Encounter Details Date Type Department Care Team (Late st Contact Info) Description 04/09/2023 [place] [address] Erick York III, MD [facility] [place] [address] Multiple sclerosis Social History Tobacco Use Types [...] encounter Miscellaneous Notes * Telephone Encounter - Sonia CarneyJINA - 04/10/2023 3:15 PM EST Prescription Renewal Request Name: Erick Chacon : 1985 Prescription(s) Requested: Requested Prescriptions Pending Prescriptions Disp Refills baclofen (Lioresal) 10 mg tablet 60 tablet 1 Sig: TAKE ONE TABLET BY MOUTH EVERY MORNING AND ONE TABLET EVERY EVENING Date of Encounter last in This Dept (If need an appointment send to secretaries to schedule): 02/03/2021 with Erick York III, MD Next Encounter in This Dept: 05/29/2023 with Erick York III, MD Date of Last Refill (for each medication): 03/09/2023, 60:0 Status of request: Pended No Known Allergies Sonia Carney CMA 04/10/23 3:15 PM documented in this encounter Plan of Treatment Upcoming Encounters Date Type Department Care Team (Late st Contact Info) Description 01/19/2024 1:00 PM EST Office Visit Urology at [facility] [address] [place] [phone] Desean Coronado MD [facility] [place] [address] 01/22/2024 12:30 PM EST Office Visit Neurosurgery at [facility] 10 [place] [address] Hema Escalante MD [address] [facility] [place] [address] Liudmila Oates PA [address] [facility] [place] [address] 02/01/2024 12:00 PM EST [place] [phone] Georgette Monae PA [facility] [place] [address] 05/30/2024 10:30 AM EDT [place] [phone] documented as of this encounter Goals Goal Patient Goal Type Associated Problems Recent Progress Patient-Stated? Author prevention of MS relapse Patient Facing Action Plan Dionicio Almeida, [facility] documented as of this encounter Visit Diagnoses Diagnosis Multiple sclerosis documented in this encounter Care Teams Diesel Engine Fitter Relationship Specialty Start Date End Date Lamont Owusu MD [address] [place] [address] PCP - General Family Medicine 02/10/21 documented as of this encounter
--- OUTSIDE RECORDS SUMMARY | 2024-01-15 20:02 | XMS_ITS | Encounter Summary ---
Author Organization [facility] Address [facility] [place] [address] Care Team Providers Care Clinical Nursing Manager Name Role Phone Lamont Owusu MD Primary Care Provider [phone] [phone] Reason for Visit * Reason Onset Date Comments Appointment 03/25/2022 Encounter Details Date Type Department Care Team (Late st Contact Info) Description 03/25/2022 [place] [address] Erick York III, MD [facility] [place] [address] Appointment Social History Tobacco Use Types Packs/Day [...] encounter Miscellaneous Notes * Telephone Encounter - [place] - 03/25/2022 10:44 AM EST Patient needing follow up with Dr. York first available. documented in this encounter Plan of Treatment Upcoming Encounters Date Type Department Care Team (Late st Contact Info) Description 01/19/2024 1:00 PM EST Office Visit Urology at [facility] [address] [place] [phone] Desean Coronado MD [facility] [place] [address] 01/22/2024 12:30 PM EST Office Visit Neurosurgery at [facility] 10 [place] [address] Hema Escalante MD [address] [facility] [place] [address] Liudmila Oates PA [address] [facility] [place] [address] 02/01/2024 12:00 PM EST [place] [phone] Georgette Monae PA [facility] [place] [address] 05/30/2024 10:30 AM EDT [place] [phone] documented as of this encounter Goals Goal Patient Goal Type Associated Problems Recent Progress Patient-Stated? Author prevention of MS relapse Patient Facing Action Plan Dionicio Almeida, [facility] documented as of this encounter Visit Diagnoses Not on filedocumented in this encounter Care Teams Clinical Nursing Manager Relationship Specialty Start Date End Date Lamont Owusu MD [address] [place] [address] [address] [place] [address] PCP - General Family Medicine 02/10/21 documented as of this encounter
--- OUTSIDE RECORDS SUMMARY | 2024-01-15 20:02 | XMS_ITS | Encounter Summary ---
Author Organization [facility] Melinda me[place]иван [place] [address] Care Team Providers Care House Shorer Name Role Phone Lamont Owusu MD Primary Care Provider [phone] [phone] Reason for Visit * Reason Onset Date Comments Medication Refill 10/06/2022 Encounter Details Date Type Department Care Team (Late st Contact Info) Description 10/06/2022 [place] [address] Desean Coronado MD [facility] [place] [address] Social History Tobacco Use Types Packs/Day Years [...] 1:00 PM EST Office Visit Urology at [facility] [address] [place] [phone] Desean Coronado MD [facility] [place] [address] 01/22/2024 12:30 PM EST Office Visit Neurosurgery at [facility] 10 [place] [address] Hema Escalante MD [address] [place] [address] Liudmila Oates PA [address] [place] [address] 02/01/2024 12:00 PM [place] [phone] Georgette Monae PA [facility] [place] [address] 05/30/2024 10:30 AM EDT [place] [phone] documented as of this encounter Goals Goal Patient Goal Type Associated Problems Recent Progress Patient-Stated? Author prevention of MS relapse Patient Facing Action Plan Dionicio Almeida, [facility] documented as of this encounter Visit Diagnoses Not on filedocumented in this encounter Care Teams House Shorer Relationship Specialty Start Date End Date Lamont Owusu MD [address] [place] [address] PCP - General Family Medicine 02/10/21 documented as of this encounter
--- OUTSIDE RECORDS SUMMARY | 2024-01-15 20:02 | XMS_ITS | Encounter Summary ---
Author Organization [facility] Address [facility] [place] [address] Care Team Providers Care Cutter In Name Role Phone Lamont Owusu MD Primary Care Provider [phone] [phone] Encounter Details Date Type Department Care Team (Latest Contact Info) Description 06/01/2022 Travel Social History Tobacco Use Types Packs/Day [...] 1:00 PM EST Office Visit Urology at [facility] [address] [place] [phone] Desean Coronado MD [facility] [place] [address] 01/22/2024 12:30 PM EST Office Visit Neurosurgery at [facility] 10 [place] [phone] Hema Escalante MD [facility] [place] [address] [place] [address] 02/01/2024 12:00 PM EST Office [place] [phone] Georgette Monae PA [facility] [place] [address] 05/30/2024 10:30 AM EDT Appointment [place] [address] documented as of this encounter Goals Goal Patient Goal Type Associated Problems Recent Progress Patient-Stated? Author prevention of MS relapse Patient Facing Action Plan Dionicio Almeida, [facility] documented as of this encounter Visit Diagnoses Not on filedocumented in this encounter Care Teams Cutter In Relationship Specialty Start Date End Date Lamont Owusu MD [facility] [address] [place] [address] PCP - General Family Medicine 02/10/21 documented as of this encounter
--- OUTSIDE RECORDS SUMMARY | 2024-01-15 20:02 | XMS_ITS | Encounter Summary ---
Author Organization [facility] Address [facility] [place] [address] Care Team Providers Care Gas Technician Name Role Phone Lamont Owusu MD Primary Care Provider [phone] [phone] Encounter Details Date Type Department Care Team (Late st Contact Info) Description 10/07/2022 Orders Only Urology at [facility] [place] [address] Desean Coronado MD [facility] [place] [address] Social History Tobacco Use Types Packs/Day Years [...] as of this encounter Progress Notes * Deana Rivera RN - 10/07/2022 7:03 AM EDT Pended orders for testosterone 200 mg IM every 14 days. Supplies were provided in clinic yesterday for syringes and needles. documented in this encounter Plan of Treatment Upcoming Encounters Date Type Department Care Team (Late st Contact Info) Description 01/19/2024 1:00 PM EST Office Visit Urology at [facility] [address] [place] [phone] Desean Coronado MD [facility] [place] [address] 01/22/2024 12:30 PM EST Office Visit Neurosurgery at [facility] 10 [place] [address] Hema Escalante MD [address] [facility] [place] [address] Liudmila Oates PA [address] [facility] [place] [address] 02/01/2024 12:00 PM EST Office Visit [place] [address] Georgette Monae PA [facility] [place] [place] [address] 05/30/2024 10:30 AM EDT Appointment Med [place] [phone] documented as of this encounter Goals Goal Patient Goal Type Associated Problems Recent Progress Patient-Stated? Author prevention of MS relapse Patient Facing Action Plan Dionicio Almeida, [facility] documented as of this encounter Visit Diagnoses Not on filedocumented in this encounter Care Teams Gas Technician Relationship Specialty Start Date End Date Lamont Owusu MD [address] [place] [address] [address] PCP - General Family Medicine 02/10/21 documented as of this encounter
--- OUTSIDE RECORDS SUMMARY | 2024-01-15 20:02 | XMS_ITS | Encounter Summary ---
Author Organization [facility] [place] [place] [address] Care Team Providers Care Hl7 Developer Name Role Phone Lamont Owusu MD Primary Care Provider [phone] [phone] Reason for Visit * Reason Comments Medication Management Encounter Details Date Type Department Care Team (Late st Contact Info) Description 03/29/2022 Specialty [place] [phone] Dionicio Doherty [facility] Social History Tobacco Use Types Packs/Day Years [...] as of this encounter Progress Notes * Dionicio Doherty [facility] - 03/29/2022 9:08 AM EST Clinical Management Plan: Transfer of Care/Discharge Specialty Services Specialty Pharmacy Consultation; Dionicio Doherty [facility] Comprehensive Medication Management (CMM) Erick Chacon [address] [facility] [address] Telephone Information: Work Phone Not on file. Is the patient transferring services to a different Specialty Pharmacy or discontinuing the medication? Discontinuing Services Medication: Vumerity Reason for discontinuation or transfer: unable to reach patient Approximate date of discontinuation or transfer: 03/29/22 Patient's response to therapy: well tolerated Summary of services provided by D- Specialty: hank krishna consult, PA renewals, refill reminders Summary of on-going needs: Follow up with clinic or pharmacy to resume filling medication Referral for additional services (if applicable): n/a Is patient aware of referral? n/a Instructions provided to patient about discharge/transfer: yes - left voicemail stating we would stop outreach, but to call to resume services Provider aware of discontinuation or transfer: yes Patient understands no changes to current drug regimen were made at the appointment and that [facility] isproviding recommendations (summary located at top of note) for provider review and follow up. Dionicio Doherty RPH 03/29/22 9:09 AM documented in this encounter Plan of Treatment Upcoming Encounters Date Type Department Care Team (Late st Contact Info) Description 01/19/2024 1:00 PM EST Office Visit Urology at [facility] [address] [place] [phone] Desean Coronado MD [facility] [place] [address] 01/22/2024 12:30 PM EST Office Visit Neurosurgery at [facility] 10 [place] [address] Hema Escalante MD 10 [facility] [place] [address] Liudmila Oates PA [address] [facility] [place] [address] 02/01/2024 12:00 PM EST Office [place] [address] Georgette Monae PA [facility] [place] [address] 05/30/2024 10:30 AM EDT Appointment [place] [address] documented as of this encounter Goals Goal Patient Goal Type Associated Problems Recent Progress Patient-Stated? Author prevention of MS relapse Patient Facing Action Plan Dionicio Almeida, [facility] documented as of this encounter Visit Diagnoses Not on filedocumented in this encounter Care Teams Hl7 Developer Relationship Specialty Start Date End Date Lamont Owusu MD [address] [place] [address] PCP - General Family Medicine 02/10/21 documented as of this encounter
--- OUTSIDE RECORDS SUMMARY | 2024-01-15 20:02 | XMS_ITS | Encounter Summary ---
Author Organization [facility] Address [facility] Melinda [place]yerиван [place] [address] Care Team Providers Care Beauty Culture Teacher Name Role Phone Lamont Owusu MD Primary Care Provider [phone] [phone] Reason for Visit * Reason Onset Date Comments Medication Refill 10/07/2022 Encounter Details Date Type Department Care Team (Late st Contact Info) Description 10/07/2022 [place] [address] Erick [place] III, MD [facility] [place] [address] Multiple sclerosis Social History Tobacco Use Types [...] 1:00 PM EST Office Visit Urology at [facility] [address] [place] [phone] Desean Coronado MD [facility] [place] [address] 01/22/2024 12:30 PM EST Office Visit Neurosurgery at [facility] 10 [place] [address] Hema Escalante MD [address] [place] [address] Liudmila Oates PA [place] [address] 02/01/2024 12:00 PM EST Office [place] [phone] Georgette Monae PA [facility] [place] [place] [address] 05/30/2024 10:30 AM EDT [place] [phone] documented as of this encounter Goals Goal Patient Goal Type Associated Problems Recent Progress Patient-Stated? Author prevention of MS relapse Patient Facing Action Plan Dionicio Almeida, [facility] documented as of this encounter Visit Diagnoses Diagnosis Multiple sclerosis documented in this encounter Care Teams Beauty Culture Teacher Relationship Specialty Start Date End Date Lamont Owusu MD [address] [place] [address] PCP - General Family Medicine 02/10/21 documented as of this encounter
--- OUTSIDE RECORDS SUMMARY | 2024-01-15 20:02 | XMS_ITS | Encounter Summary ---
Author Organization [facility] Address [facility] Melinda meyerиван [place] [address] Care Team Providers Care School Bus Dispatcher Name Role Phone Lamont Owusu MD Primary Care Provider [phone] [phone] Reason for Visit * Reason Comments Specialty Pharmacy Review Vumerity 231mg Cap Encounter Details Date Type Department Care Team (Late st Contact Info) Description 09/08/2022 Specialty [place] [address] Latosha Bai, INSULATION MECHANIC Social History Tobacco Use Types Packs/Day Years [...] 1:00 PM EST Office Visit Urology at [place] [facility] [address] [place] [phone] Desean Coronado MD [facility] [place] [address] 01/22/2024 12:30 PM EST Office Visit Neurosurgery at [facility] [place] [place] [phone] Hema Escalante MD [address] [place] [address] [place] [address] 02/01/2024 12:00 PM EST Office [place] [phone] Georgette Monae PA [facility] [place] [address] 05/30/2024 10:30 AM EDT Appointment [place] [phone] documented as of this encounter Goals Goal Patient Goal Type Associated Problems Recent Progress Patient-Stated? Author prevention of MS relapse Patient Facing Action Plan Dionicio Almeida, [facility] documented as of this encounter Visit Diagnoses Not on filedocumented in this encounter Care Teams School Bus Dispatcher Relationship Specialty Start Date End Date Lamont Owusu MD [address] [facility] 1 [place] [address] PCP - General Family Medicine 02/10/21 documented as of this encounter
--- OUTSIDE RECORDS SUMMARY | 2024-01-15 20:02 | XMS_ITS | Encounter Summary ---
Author Organization [facility] [place] [address] Care Team Providers Care Human Services Worker Name Role Phone Lamont Owusu MD Primary Care Provider [phone] [phone] Encounter Details Date Type Department Care Team (Late st Contact Info) Description 08/02/2022 9:50 AM EDT Laboratory Appointment Lab 3L [place] [phone] Low libido Social History Tobacco Use Types [...] 1:00 PM EST Office Visit Urology at [facility] [place] [facility] [address] [place] [phone] Desean Coronado MD [facility] [place] [address] 01/22/2024 12:30 PM EST Office Visit [place] [phone] Hema [place] [address] Liudmila [place] [address] 02/01/2024 12:00 PM EST Office [place] [address] Georgette Monae PA [facility] [place] [address] 05/30/2024 10:30 AM EDT [place]ointment [place] [address] documented as of this encounter Goals Goal Patient Goal Type Associated Problems Recent Progress Patient-Stated? Author prevention of MS relapse Patient Facing Action Plan Dionicio Almeida, [facility] documented as of this encounter Procedures Procedure Name Priority Date/Time Associated Diagnosis Comments TESTOSTERONE, TOTAL AND FREE Routine 08/02/2022 9:44 AM EDT Low libido documented in this encounter Results * (ABNORMAL) Testosterone, total and free (08/02/2022 9:44 AM EDT) Testo, Total (Ms) (JUNE) 145(L) 240 - 950 ng/dL [facility] Comment: ADDITIONAL INFORMATION Testing performed by Liquid Chromatography-Tandem Mass Spectrometry (LC-MS/MS). This test was developed and its performance characteristics determined by [facility] in a manner consistent with CLIA requirements. This test has not been cleared or approved by the U.S. Food and Drug Administration. Test Performed by: [address] [address] Armature Winder Helper Repair: Gilson Christine M.D. Ph.D.; CLIA# [id number] Testo Free (JUNE) 5.35 4.65 - 18.1 ng/dL [facility] Comment: ADDITIONAL INFORMATION This test was developed and its performance characteristics determined by [facility] in a manner consistent with CLIA requirements. This test has not been cleared or approved by the U.S. Food and Drug Administration. Test Performed by: [facility] [address] [place] [address] Armature Winder Helper Repair: Gilson Christine M.D. Ph.D.; CLIA# [id number] Blood 08/02/2022 9:44 AM EDT 08/02/2022 12:18 PM EDT Narrative Resulting Agency Comment Spec In Lab Desean Coronado MD LAB SEND OUT ORDERAB LES Performing Organization Address City/State/[facility] Co de Phone Number [facility] [place] [address] documented in this encounter Visit Diagnoses Diagnosis Low libido documented in this encounter Care Teams Human Services Worker Relationship Specialty Start Date End Date Lamont Owusu MD [address] [place] [address] PCP - General Family Medicine 02/10/21 documented as of this encounter
--- OUTSIDE RECORDS SUMMARY | 2024-01-15 20:02 | XMS_ITS | Encounter Summary ---
Author Organization [facility] Address [facility] [place] [address] Care Team Providers Care Lapeler Name Role Phone Lamont Owusu MD Primary Care Provider [phone] [phone] Reason for Visit * Reason Comments Medication Refill Encounter Details Date Type Department Care Team (Late st Contact Info) Description 07/02/2022 [place] [address] Erick [place] III, MD [facility] [place] [address] Multiple sclerosis Social History Tobacco Use Types [...] 1:00 PM EST Office Visit Urology at [place] [facility] [address] [place] [phone] Desean Coronado MD [facility] [place] [address] 01/22/2024 12:30 PM EST Office Visit Neurosurgery at [facility] [address] [place] [address] Hema Escalante MD [address] [place] [address] Liudmila Oates PA [facility] [place] [address] 02/01/2024 12:00 PM EST [place] [phone] Georgette Monae PA [facility] [place] [place] [address] 05/30/2024 10:30 AM EDT [place] [phone] documented as of this encounter Goals Goal Patient Goal Type Associated Problems Recent Progress Patient-Stated? Author prevention of MS relapse Patient Facing Action Plan Dionicio Almeida, [facility] documented as of this encounter Visit Diagnoses Diagnosis Multiple sclerosis documented in this encounter Care Teams Lapeler Relationship Specialty Start Date End Date Lamont Owusu MD [address] [place] [address] PCP - General Family Medicine 02/10/21 documented as of this encounter
--- OUTSIDE RECORDS SUMMARY | 2024-01-15 20:02 | XMS_ITS | Encounter Summary ---
Author Organization [facility] Address [facility] [place] [place] [address] Care Team Providers Care Special Forces Officer Name Role Phone Lamont Owusu MD Primary Care Provider [phone] [phone] Reason for Visit * Reason Onset Date Comments Medication Refill 02/17/2023 Encounter Details Date Type Department Care Team (Late st Contact Info) Description 02/17/2023 [place] [address] Erick [place] III, MD [facility] [place] [address] Multiple sclerosis Social History Tobacco Use Types [...] encounter Miscellaneous Notes * Telephone Encounter - Rommel Sonia Tony CMA - 02/21/2023 1:02 PM EST Prescription Renewal Request Name: Erick Chacon : 1985 Prescription(s) Requested: Requested Prescriptions Pending Prescriptions Disp Refills baclofen (Lioresal) 10 mg tablet 30 tablet 0 Sig: TAKE ONE TABLET BY MOUTH EVERY MORNING AND ONE TABLET EVERY EVENING Date of Encounter last in This Dept (If need an appointment send to secretaries to schedule): 02/03/2021 with Melquiades [place] MD Next Encounter in This Dept: 05/29/2023 Date of Last Refill (for each medication): 01/31/2023, 30:0 Status of request: Pended No Known Allergies Sonia Carney CMA 02/21/23 1:02 PM documented in this encounter Plan of Treatment Upcoming Encounters Date Type Department Care Team (Late st Contact Info) Description 01/19/2024 1:00 PM EST Office Visit Urology at [place] [facility] [address] [place] [phone] Desean Coronado MD [place] [address] 01/22/2024 12:30 PM EST Office Visit Neurosurgery at [facility] 10 [place] [address] Hema Escalante MD [address] [facility] [place] [address] Liudmila Oates PA [address] [facility] [place] [address] 02/01/2024 12:00 PM EST [place] [phone] Georgette Monae PA [facility] [place] [address] 05/30/2024 10:30 AM EDT [place] [phone] documented as of this encounter Goals Goal Patient Goal Type Associated Problems Recent Progress Patient-Stated? Author prevention of MS relapse Patient Facing Action Plan Dionicio Almeida, [facility] documented as of this encounter Visit Diagnoses Diagnosis Multiple sclerosis documented in this encounter Care Teams Special Forces Officer Relationship Specialty Start Date End Date Lamont Owusu MD [address] [place] [address] PCP - General Family Medicine 02/10/21 documented as of this encounter
--- OUTSIDE RECORDS SUMMARY | 2024-01-15 20:02 | XMS_ITS | Encounter Summary ---
Author Organization [facility] [address] Care Team Providers Care Scene And Lighting Design Lecturer Name Role Phone Lamont Owusu MD Primary Care Provider [phone] Encounter Details Date Type Department Care Team (Late st Contact Info) Description 06/03/2022 Telephone [place] [phone] Veronika James, RN Social History Tobacco Use Types Packs/Day [...] encounter Miscellaneous Notes * Telephone Encounter - Veronika James, RN - 06/03/2022 1:58 PM EDT Received call from Erick on nurse line. He states that he was told by [facility] that he would have to wait until a prior auth could be submitted for his rx for sildenafil. Left a voicemail lettinghim know that I have submitted a prior authorization, but it can take several days to hear back. Advised him that If he does not want to wait, he can go on [employer] and print a coupon and it looks l radha it would be approx $14 for 30, 100 mg tablets at [facility]. Requested he call the clinic withany additional questions or concerns. documented in this encounter Plan of Treatment Upcoming Encounters Date Type Department Care Team (Late st Contact Info) Description 01/19/2024 1:00 PM EST Office Visit Urology at [address] [phone] Desean Coronado MD [facility] [place] [address] 01/22/2024 12:30 PM EST Office Visit Neurosurgery at [facility] 10 [place] [phone] Hema Escalante MD [address] [facility] [place] [address] Liudmila Oates PA [address] [facility] [place] [address] 02/01/2024 12:00 PM EST Office Visit [place] [phone] Georgette Monae PA [facility] [place] [address] 05/30/2024 10:30 AM EDT Appointment Med [place] [phone] documented as of this encounter Goals Goal Patient Goal Type Associated Problems Recent Progress Patient-Stated? Author prevention of MS relapse Patient Facing Action Plan Dionicio Almeida, [facility] documented as of this encounter Visit Diagnoses Not on filedocumented in this encounter Care Teams Scene And Lighting Design Lecturer Relationship Specialty Start Date End Date Lamont Owusu MD [address] [place] [address] [address] PCP - General Family Medicine 02/10/21 documented as of this encounter
--- OUTSIDE RECORDS SUMMARY | 2024-01-15 20:02 | XMS_ITS | Encounter Summary ---
Author Organization [facility] Address [facility] [place] [address] Care Team Providers Care Cookie Mixer Helper Name Role Phone Lamont Owusu MD Primary Care Provider [phone] [phone] Reason for Visit * Reason Onset Date Comments Appointment 07/12/2022 Encounter Details Date Type Department Care Team (Late st Contact Info) Description 07/12/2022 Telephone [place] [address] Erick York III, MD [facility] [place] [address] Appointment Social History Tobacco Use Types Packs/Day [...] * Telephone Encounter - Nova [place] - 07/12/2022 1:30 PM EDT Left message to schedule an appointment with Dr. York. First available. documented in this encounter Plan of Treatment Upcoming Encounters Date Type Department Care Team (Late st Contact Info) Description 01/19/2024 1:00 PM EST Office Visit Urology at [place] [facility] [address] [place] [phone] Desean Coronado MD [facility] [place] [address] 01/22/2024 12:30 PM EST Office Visit Neurosurgery at [facility] [address] [place] [address] Hema Escalante MD [address] [facility] [place] [address] Liudmila Oates PA [address] [facility] [place] [address] 02/01/2024 12:00 PM EST Office [place] [address] Georgette Monae PA [facility] [place] [address] 05/30/2024 10:30 AM EDT Appointment [place] [phone] documented as of this encounter Goals Goal Patient Goal Type Associated Problems Recent Progress Patient-Stated? Author prevention of MS relapse Patient Facing Action Plan Dionicio Almeida, [facility] documented as of this encounter Visit Diagnoses Not on filedocumented in this encounter Care Teams Cookie Mixer Helper Relationship Specialty Start Date End Date Lamont Owusu MD [address] [place] [address] PCP - General Family Medicine 02/10/21 documented as of this encounter
--- OUTSIDE RECORDS SUMMARY | 2024-01-15 20:02 | XMS_ITS | Encounter Summary ---
Author Organization [facility] Address [facility] [place] [address] Care Team Providers Care Supervisor Fruit Grading Name Role Phone Lamont Owusu MD Primary Care Provider [phone] [phone] Encounter Details Date Type Department Care Team (Latest Contact Info) Description 09/01/2022 Travel Social History Tobacco Use Types Packs/Day [...] 1:00 PM EST Office Visit Urology at [place] [facility] [address] [place] [phone] Desean Coronado MD [facility] [place] [address] 01/22/2024 12:30 PM EST Office Visit Neurosurgery at [facility] 10 [place] [phone] Hema Escalante MD [facility] [place] [address] [place] [address] 02/01/2024 12:00 PM EST Office [place] [phone] Georgette Monae PA [facility] [place] [address] 05/30/2024 10:30 AM EDT Appointment [place] [address] documented as of this encounter Goals Goal Patient Goal Type Associated Problems Recent Progress Patient-Stated? Author prevention of MS relapse Patient Facing Action Plan Dionicio Almeida, [facility] documented as of this encounter Visit Diagnoses Not on filedocumented in this encounter Care Teams Supervisor Fruit Grading Relationship Specialty Start Date End Date Lamont Owusu MD [facility] [address] [place] [address] PCP - General Family Medicine 02/10/21 documented as of this encounter
--- OUTSIDE RECORDS SUMMARY | 2024-01-15 20:02 | XMS_ITS | Encounter Summary ---
Author Organization [facility] Address [facility] [place] [address] Care Team Providers Care Pharmacy Customer Care Specialist Name Role Phone Lamont Owusu MD Primary Care Provider [phone] [phone] Encounter Details Date Type Department Care Team (Latest Contact Info) Description 08/18/2022 Travel Social History Tobacco Use Types Packs/Day [...] 1:00 PM EST Office Visit Urology at [place] [facility] [address] [place] [phone] Desean Coronado MD [facility] [place] [address] 01/22/2024 12:30 PM EST Office Visit Neurosurgery at [facility] 10 [place] [phone] Hema Escalante MD [facility] [place] [address] [place] [address] 02/01/2024 12:00 PM EST Office [place] [phone] Georgette Monae PA [facility] [place] [address] 05/30/2024 10:30 AM EDT [place]ointment [place] [address] documented as of this encounter Goals Goal Patient Goal Type Associated Problems Recent Progress Patient-Stated? Author prevention of MS relapse Patient Facing Action Plan Dionicio Almeida, [facility] documented as of this encounter Visit Diagnoses Not on filedocumented in this encounter Care Teams Pharmacy Customer Care Specialist Relationship Specialty Start Date End Date Lamont Owusu MD [facility] [address] [place] [address] PCP - General Family Medicine 02/10/21 documented as of this encounter
--- OUTSIDE RECORDS SUMMARY | 2024-01-15 20:02 | XMS_ITS | Encounter Summary ---
Author Organization [facility] Address [facility] [place] [address] Care Team Providers Care Station Manager Name Role Phone Lamont Owusu MD Primary Care Provider [phone] [phone] Reason for Visit * Reason Onset Date Comments Reminder Appointment 10/12/2022 Encounter Details Date Type Department Care Team (Late st Contact Info) Description 10/12/2022 [place] [address] Erick York III, MD [facility] [place] [address] Reminder Appointment Social History Tobacco Use Types Packs/Day [...] encounter Miscellaneous Notes * Telephone Encounter - Eladia Cleary CMA - 10/12/2022 8:33 AM EDT Unable to reach this patient by phone to review their medications and allergies prior to their upcoming tele-appointment with the Neurology provider. No message left. documented in this encounter Plan of Treatment Upcoming Encounters Date Type Department Care Team (Late st Contact Info) Description 01/19/2024 1:00 PM EST Office Visit Urology at [place] [facility] [address] [place] [phone] Desean Coronado MD [facility] [place] [address] 01/22/2024 12:30 PM EST Office Visit Neurosurgery at [facility] 10 [place] [address] Hema Escalante MD [address] [facility] [place] [address] Liudmila Oates PA [address] [facility] [place] [address] 02/01/2024 12:00 PM EST [place] [address] Georgette Monae PA [facility] [place] [address] 05/30/2024 10:30 AM EDT [place] [address] documented as of this encounter Goals Goal Patient Goal Type Associated Problems Recent Progress Patient-Stated? Author prevention of MS relapse Patient Facing Action Plan Dionicio Almeida, [facility] documented as of this encounter Visit Diagnoses Not on filedocumented in this encounter Care Teams Station Manager Relationship Specialty Start Date End Date Lamont Owusu MD [address] [place] [address] [facility] [address] [place] [address] PCP - General Family Medicine 02/10/21 documented as of this encounter
--- OUTSIDE RECORDS SUMMARY | 2024-01-15 20:02 | XMS_ITS | Encounter Summary ---
Author Organization [facility] [place] [address] Care Team Providers Care Marketing Project Coordinator Name Role Phone Lamont Owusu MD Primary Care Provider [phone] [phone] Encounter Details Date Type Department Care Team (Late st Contact Info) Description 02/17/2023 [place] [address] Desean Coronado MD [facility] [place] [address] Social History Tobacco Use Types Packs/Day Years [...] 1:00 PM EST Office Visit Urology at [place] [facility] [address] [place] [phone] Desean Coronado MD [facility] [place] [address] 01/22/2024 12:30 PM EST Office Visit Neurosurgery at 10 [place] [address] Hema Escalante MD [address] [place] [address] Liudm[place] [address] 02/01/2024 12:00 PM EST [place] [phone] Georgette Monae PA [facility] [place] [address] 05/30/2024 10:30 AM EDT [place]ointment [place] [address] documented as of this encounter Goals Goal Patient Goal Type Associated Problems Recent Progress Patient-Stated? Author prevention of MS relapse Patient Facing Action Plan Dionicio Almeida, [facility] documented as of this encounter Visit Diagnoses Not on filedocumented in this encounter Care Teams Marketing Project Coordinator Relationship Specialty Start Date End Date Lamont Owusu MD [address] [place] [address] PCP - General Family Medicine 02/10/21 documented as of this encounter
--- OUTSIDE RECORDS SUMMARY | 2024-01-15 20:02 | XMS_ITS | Encounter Summary ---
Author Organization [facility] Address [facility] [place] [address] Care Team Providers Care Collar Feller Name Role Phone Lamont Owusu MD Primary Care Provider [phone] Reason for Visit * Reason Comments Medication Refill Encounter Details Date Type Department Care Team (Late st Contact Info) Description 08/04/2022 Refill [place] [address] Erick York III, MD [facility] [place] [address] Multiple sclerosis Social History Tobacco Use Types [...] Telephone Encounter - Susan Gamez RN - 08/04/2022 2:44 PM EDT Medication request for : Baclofen 10 mg tablets Information from Last Rx filled: Dose, Route, Frequency: As Directed Dispense Quantity: 60 tablet Refills: 0 Note to Pharmacy: Pt needs to call clinic and schedule visit Sig: TAKE ONE TABLET BY MOUTH EVERY MORNING AND ONE TABLET BY MOUTH EVERY EVENING Start Date: 07/06/22 End Date: -- Written Date: 07/06/22 From last note: Erick Chacon is a 35 y.o. man [...] eccentric discprotrusion affecting right more than left. He also notes episodes of imbalance/incoordination without other lateralizing features. For evaluation of both current symptoms as well as prior episode of imbalance and coordination willobtain MRI demonstrating and thoracic spine. We will also be able to evaluate prior thoracic spinalcanal stenosis. We discussed alternative MS immunotherapies including efficacy, potential side effects, laboratory monitoring, and potential risks in the setting of COVID-19 pandemic. Decision was made to switch to alternative fumarate medication, Vumerity (diroximal fumarate). Prior clinical studies have showed that Vumerity results in less frequent adverse side effects. He had been clinically stable on Tecfidera. I think that there is relatively low utility of treatment with steroids and rate given relatively mild symptoms without significant change in functional abilities. Monitoring Plan: Repeat MRI brain and thoracic spine Recent CBC diff and LFTs Treatment Plan: Continue on switching to Vumerity Follow-Up: 2 months via telemedicine Last appt: 02/03/21 Next appt: 09/08/22 documented in this encounter Plan of Treatment Upcoming Encounters Date Type Department Care Team (Late st Contact Info) Description 01/19/2024 1:00 PM EST Office Visit Urology at [place] [facility] [address] [place] [phone] Desean Coronado MD [facility] [place] [address] 01/22/2024 12:30 PM EST Office Visit Neurosurgery at [facility] 10 [place] [address] Hema Escalante MD [address] [place] [address] [place] [address] 02/01/2024 12:00 PM EST Office Visit [place] [phone] Georgette Monae PA [facility] [place] [address] 05/30/2024 10:30 AM EDT Appointment [place] [phone] documented as of this encounter Goals Goal Patient Goal Type Associated Problems Recent Progress Patient-Stated? Author prevention of MS relapse Patient Facing Action Plan Dionicio Almeida, [facility] documented as of this encounter Visit Diagnoses Diagnosis Multiple sclerosis documented in this encounter Care Teams Collar Feller Relationship Specialty Start Date End Date Lamont Owusu MD [address] [place] [address] PCP - General Family Medicine 02/10/21 documented as of this encounter
--- OUTSIDE RECORDS SUMMARY | 2024-01-15 20:02 | XMS_ITS | Encounter Summary ---
Author Organization [facility] Address [facility] [place] [address] Care Team Providers Care Civil Draftsman Name Role Phone Lamont Owusu MD Primary Care Provider [phone] Encounter Details Date Type Department Care Team (Latest Contact Info) Description 08/12/2022 Travel Social History Tobacco Use Types Packs/Day [...] 1:00 PM EST Office Visit Urology at [place] [facility] [address] [place] [phone] Desean Coronado MD [facility] [place] [address] 01/22/2024 12:30 PM EST Office Visit Neurosurgery at [facility] 10 [place] [phone] Hema Escalante MD [facility] [address] [place] [address] 02/01/2024 12:00 PM EST Office [place] [phone] Georgette Monae PA [facility] [place] [address] 05/30/2024 10:30 AM EDT Appointment [place] [address] documented as of this encounter Goals Goal Patient Goal Type Associated Problems Recent Progress Patient-Stated? Author prevention of MS relapse Patient Facing Action Plan Dionicio Almeida, [facility] documented as of this encounter Visit Diagnoses Not on filedocumented in this encounter Care Teams Civil Draftsman Relationship Specialty Start Date End Date Lamont Owusu MD [facility] [address] [place] [address] PCP - General Family Medicine 02/10/21 documented as of this encounter
--- OUTSIDE RECORDS SUMMARY | 2024-01-15 20:02 | XMS_ITS | Encounter Summary ---
Author Organization [facility] Address [facility] [place] [address] Care Team Providers Care Intramural Director Name Role Phone Lamont Owusu MD Primary Care Provider [phone] [phone] Encounter Details Date Type Department Care Team (Latest Contact Info) Description 08/02/2022 Travel Social History Tobacco Use Types Packs/Day [...] 1:00 PM EST Office Visit Urology at [place] [facility] [address] [place] [phone] Desean Coronado MD [facility] [place] [address] 01/22/2024 12:30 PM EST Office Visit Neurosurgery at [facility] 10 [place] [phone] Hema Escalante MD [facility] [place] [address] [place] [address] 02/01/2024 12:00 PM EST Office [place] [phone] Georgette Monae PA [facility] [place] [address] 05/30/2024 10:30 AM EDT Appointment [place] [address] documented as of this encounter Goals Goal Patient Goal Type Associated Problems Recent Progress Patient-Stated? Author prevention of MS relapse Patient Facing Action Plan Dionicio Almeida, [facility] documented as of this encounter Visit Diagnoses Not on filedocumented in this encounter Care Teams Intramural Director Relationship Specialty Start Date End Date Lamont Owusu MD [facility] [address] [place] [address] PCP - General Family Medicine 02/10/21 documented as of this encounter
--- OUTSIDE RECORDS SUMMARY | 2024-01-15 20:02 | XMS_ITS | Encounter Summary ---
Author Organization [facility] Address [facility] [place] [place] [address] Care Team Providers Care Liability Claims Adjuster Name Role Phone Lamont Owusu MD Primary Care Provider [phone] [phone] Reason for Visit * Reason Onset Date Comments Medication Refill 01/09/2023 Encounter Details Date Type Department Care Team (Late st Contact Info) Description 01/09/2023 [place] [address] Erick York III, MD [facility] [place] [address] Multiple sclerosis Social History Tobacco Use Types [...] Telephone Encounter - Jennie Rice MA - 01/11/2023 8:29 AM EST Prescription Renewal Request Name: Erick Chacon : 1985 Prescription(s) Requested: Requested Prescriptions Pending Prescriptions Disp Refills baclofen (Lioresal) 10 mg tablet 30 tablet 0 Sig: TAKE ONE TABLET BY MOUTH EVERY MORNING AND ONE TABLET EVERY EVENING Date of Encounter last in This Dept (If need an appointment send to secretaries to schedule): 02/03/21 Jay[place] Next Encounter in This Dept: Visit date not found Date of Last Refill (for each medication): 12/09/22 60 tabs with 0 refills Medication category requirements (labs etc): n/a Status of request: Pended No Known Allergies Jennie Rice MA 01/11/23 8:29 AM documented in this encounter Plan of Treatment Upcoming Encounters Date Type Department Care Team (Late st Contact Info) Description 01/19/2024 1:00 PM EST Office Visit Urology at [place] [facility] [address] [place] [phone] Desean Coronado MD [facility] [place] [address] 01/22/2024 12:30 PM EST Office Visit Neurosurgery at [facility] 10 [place] [address] Hema Escalante MD [address] [facility] [place] [address] Liudmila Oates PA [address] [facility] [place] [address] 02/01/2024 12:00 PM EST Office [place] [phone] Georgette Monae PA [facility] [place] [address] 05/30/2024 10:30 AM EDT [place]ointment [place] [phone] documented as of this encounter Goals Goal Patient Goal Type Associated Problems Recent Progress Patient-Stated? Author prevention of MS relapse Patient Facing Action Plan Dionicio Almeida, [facility] documented as of this encounter Visit Diagnoses Diagnosis Multiple sclerosis documented in this encounter Care Teams Liability Claims Adjuster Relationship Specialty Start Date End Date Lamont Owusu MD [address] [place] [address] PCP - General Family Medicine 02/10/21 documented as of this encounter
--- OUTSIDE RECORDS SUMMARY | 2024-01-15 20:02 | XMS_ITS | Encounter Summary ---
Author Organization [facility] Address [facility] [place]inda [place]ив[place] [address] Care Team Providers Care Supervisor Asbestos Textile Name Role Phone Lamont Owusu MD Primary Care Provider +1 [phone] Encounter Details Date Type Department Care Team (Latest Contact Info) Description 01/17/2023 10:50 AM EST Laboratory Appointment Lab [address]L [place] [phone] Hypogonadism in male; Abnormal results of function [...] 1:00 PM EST Office Visit [facility] at [facility] [address] [place] [phone] Desean Coronado MD [facility] [place] [address] 01/22/2024 12:30 PM EST Office Visit Neurosurgery at [facility] [place] [address] [place] [address] Liudmila O[place]se [place] [address] 02/01/2024 12:00 PM EST [place] [address] Georgette Monae PA [facility] [place] [address] 05/30/2024 10:30 AM EDT [place] [phone] documented as of this encounter Goals Goal Patient Goal Type Associated Problems Recent Progress Patient-Stated? Author prevention of MS relapse Patient Facing Action Plan Dionicio Almeida, [facility] documented as of this encounter Procedures Procedure Name Priority Date/Time Associated Diagnosis Comments HEMOGRAM Routine 01/17/2023 10:26 AM EST Hypogonadism in male DIFFERENTIAL, AUTOMATED Routine 01/17/2023 10:26 AM EST Hypogonadism in male ESTRADIOL Routine 01/17/2023 10:26 AM EST Hypogonadism in male CBC (WITH DIFF) Routine 01/17/2023 10:26 AM EST Hypogonadism in male TESTOSTERONE, TOTAL Routine 01/17/2023 1 0:26 AM EST Hypogonadism in male PSA (ULTRASENSITIVE) Routine 01/17/2023 10:26 AM EST Hypogonadism in male Abnormal results of function studies of other organs and systems documented in this encounter Results * Differential, Automated (01/17/2023 10:26 AM EST) Neutrophil % 58.8 % [facility] Neutrophil Absolute 4.45 1.70 - 6.10 x10(3)/[facility] Lymph % 28.8 % [facility] Lymphocytes Abs 2.2 0.9 - 3.2 x10(3)/[facility] Monocyte % 9.9 % [facility] Monocyte Abs 0.8 0.3 - 0.9 x10(3)/[facility] Eos % 1.7 % [facility] Eosinophils Abs 0.1 0.0 - 0.4 x10(3)/[facility] Basophil % 0.7 % [facility] Baso Absolute 0.0 0.0 - 0.1 x10(3)/[facility] Immature Gran % 0.10 % [facility] Comment: Immature granulocytes(IG's)percentage and absolute count will include metamyelocytes, myelocytes, and promyelocytes. Blood smears from CBCs yielding IG's will be scanned manually for concordance. If this scan disagrees with the automated IG or if promyelocytes are noted, a manual differential will be performed. Immature Gran Absolute 0.01 0.00 - 0.04 x10(3)/[facility] Blood 01/17/2023 10:2 6 AM EST 01/17/2023 10:31 AM EST Narrative Resulting Agency Comment Spec In Lab Desean Coronado MD HEMATOLOGY ORDERABLE S Performing Organization Address City/State/[facility] Co de Phone Number [facility] [place] [address] * (ABNORMAL) Hemogram (01/17/2023 10:26 AM EST) White Blood Cell 7.6 4.0 - 9.5 x10(3)/mc L [facility] Red Blood Cell 5.57(H) 4.58 - 5.54 x10(6)/mc L [facility] Hemoglobin 15.9 13.7 - 16.5 g/dL [facility] Hematocrit 47.2 40.5 - 48.5 % [facility] Mean Cell Volume 84.7 82.9 - 93.1 fL [facility] Mean Cell Hemoglobin 28.5 27.5 - 32.1 pg [facility] Mean Cell Hemoglobin Concentration 33.7 32.0 - 35.7 g/dL [facility] Platelet 216 145 - 357 x10(3)/mc L [facility] RDW Standard Deviation 43.0 36.0 - 45.0 fL [facility] RDW coefficient of variation 13.9(H) 11.4 - 13.8 % [facility] Mean Platelet Volume 11.0 7.6 - 12.9 fL [facility] NRBC% auto 0.0 % [facility] NRBC Absolute 0.000 0.000 - 0.000 x10(3)/mc L [facility] Blood 01/17/2023 10:2 6 AM EST 01/17/2023 10:31 AM EST Narrative Resulting Agency Comment Spec In Lab Desean Coronado MD HEMATOLOGY ORDERABLE S Performing Organization Address City/State/[facility] Co de Phone Number [facility] [place] [address] * (ABNORMAL) Testosterone, total (01/17/2023 10:26 AM EST) Testosterone 8.61(H) 2.49 - 8.36 ng/mL [facility] Comment: Pediatric Reference Ranges: ? [...] Jennie Marissa Testosterone II 12/2021, v2.0 Blood 01/17/2023 10:2 6 AM EST 01/17/2023 10:31 AM EST Narrative Resulting Agency Comment Spec In Lab Desean Coronado MD CHEMISTRY ORDERABLES Performing Organization Address [facility] de Phone Number [facility] [place] [address] * PSA (Ultrasensitive) (01/17/2023 10:26 AM EST) [facility] Prostate Specific Antigen (Ultrasensitive) 0.50 0.00 - 4.00 ng/mL [facility] Comment: PLEASE NOTE: The above reference interval is intended for healthy males with an intact prostate. Values within this reference interval may indicate recurrence in men who have undergone radical prostatectomy. This result was generated using a Jennie Marissa immunoassay. ??Results obtained from other methods or manufacturers cannot be used interchangeably with this method. Blood 01/17/2023 10:2 6 AM EST 01/17/2023 10:31 AM EST Narrative Resulting Agency Comment Spec In Lab Desean Coronado MD CHEMISTRY ORDERABLES Performing Organization Address [facility] de Phone Number [facility] [place] [address] * Estradiol (01/17/2023 10:26 AM EST) [facility] Estradiol 104 pg/mL [facility] Comment: Reference ranges: Males: Adult: ? 11 to 43 pg/mL Females: Non- females: ?Follicular: ??12-233 pg/mL ?Ovulation: ?? 41-398 pg/mL ?Luteal: ?22-341 pg/mL ?Postmenopausal: ?? <5 - 138 pg/mL females: ?1st trimester: ??154-3243 pg/mL ?2nd trimester: ??1561-92282 pg/mL ?3rd trimester: ??8525- >35886 pg/mL Blood 01/17/2023 10:2 6 AM EST 01/17/2023 10:31 AM EST Narrative Resulting Agency Comment Spec In Lab Desean Coronado MD CHEMISTRY ORDERABLES [facility] [place] [address] documented in this encounter Visit Diagnoses Diagnosis Hypogonadism in male Abnormal results of function studies of other organs and systems documented in this encounter Care Teams Supervisor Asbestos Textile Relationship Specialty Start Date End Date Lamont Owusu MD [address] [place] [address] PCP - General Family Medicine 02/10/21 documented as of this encounter
--- OUTSIDE RECORDS SUMMARY | 2024-01-15 20:02 | XMS_ITS | Encounter Summary ---
Author Organization [facility], [facility]1983 Address [facility] [place] [place] [address] Care Team Providers Care Accounts Payable Technician Name Role Phone Lamont Owusu MD Primary Care Provider [phone] [phone] Reason for Visit * Reason Onset Date Comments Medication Refill 04/08/2022 Encounter Details Date Type Department Care Team (Late st Contact Info) Description 04/08/2022 [place] [address] Erick York III, MD [facility] [place] [address] Multiple sclerosis Social History Tobacco Use Types [...] Miscellaneous Notes * Telephone Encounter - Eladia Cleary, POLITICAL DIRECTOR - 04/08/2022 12:12 PM EST Last Appt: 02/03/21 Next Appt Schedule date: 07/25/22 Msg sent to medical secretary receptionist to schedule past due or needed Appt:no Last Rx: 03/25/22 Quantity: 30 Refills: 0 Request matches most recent chart documentation for dosing directions: yes OR Request does not match most recent chart documentation for dosing directions - msg sent to the nurse Quantity on prepped rx equals either 30 or 90 day of med: 30 documented in this encounter Plan of Treatment Upcoming Encounters Date Type Department Care Team (Late st Contact Info) Description 01/19/2024 1:00 PM EST Office Visit Urology at [place] [place] [facility] [address] [place] [phone] Desean Coronado MD [facility] [place] [address] 01/22/2024 12:30 PM EST Office Visit Neurosurgery at [facility] [address] [place] [address] Hema Escalante MD [address] [facility] [place] [address] Liudmila Oates PA [address] [facility] [place] [address] 02/01/2024 12:00 PM EST Office [place] [phone] Georgette Monae PA [facility] [place] [address] 05/30/2024 10:30 AM EDT Appointment [place] [phone] documented as of this encounter Goals Goal Patient Goal Type Associated Problems Recent Progress Patient-Stated? Author prevention of MS relapse Patient Facing Action Plan Dionicio Almeida, [facility] documented as of this encounter Visit Diagnoses Diagnosis Multiple sclerosis documented in this encounter Care Teams Accounts Payable Technician Relationship Specialty Start Date End Date Lamont Owusu MD [address] [place] [address] [place] [address] PCP - General Family Medicine 02/10/21 documented as of this encounter
--- OUTSIDE RECORDS SUMMARY | 2024-01-15 20:02 | XMS_ITS | Encounter Summary ---
Author Organization [facility] Address [facility] [place] [address] Care Team Providers Care Valuation Consultant Name Role Phone Lamont Owusu MD Primary Care Provider +1 [phone] Encounter Details Date Type Department Care Team (Late st Contact Info) Description 11/03/2022 [place] [phone] Veronika James RN Social History Tobacco Use Types Packs/Day [...] as of this encounter Progress Notes * Veronika James RN - 11/03/2022 3:12 PM EDT Prior authorization for testosterone cypionate approved documented in this encounter Plan of Treatment Upcoming Encounters Date Type Department Care Team (Late st Contact Info) Description 01/19/2024 1:00 PM EST Office Visit Urology at [facility] [address] [phone] Desean Coronado MD [facility] [address] 01/22/2024 12:30 PM EST Office Visit Neurosurgery at [facility] [address] [place] [address] Hema Escalante MD [address] [place] [address] Liudmila Oates PA [facility] [place] [place] [address] 02/01/2024 12:00 PM EST [place] [phone] Georgette Monae PA [facility] [place] [address] 05/30/2024 10:30 AM EDT [place] [phone] documented as of this encounter Goals Goal Patient Goal Type Associated Problems Recent Progress Patient-Stated? Author prevention of MS relapse Patient Facing Action Plan Dionicio Almeida, [facility] documented as of this encounter Visit Diagnoses Not on filedocumented in this encounter Care Teams Valuation Consultant Relationship Specialty Start Date End Date Lamont Owusu MD [address] [place] [address] [address] [place] [address] PCP - General Family Medicine 02/10/21 documented as of this encounter
--- OUTSIDE RECORDS SUMMARY | 2024-01-15 20:02 | XMS_ITS | Encounter Summary ---
Author Organization [facility] Address [facility] [place] [address] Care Team Providers Care Spiral Gear Generator Name Role Phone Lamont Owusu MD Primary Care Provider +1 [phone] Encounter Details Date Type Department Care Team (Latest Contact Info) Description 10/06/2022 4:00 PM EDT [place] [address] Desean Coronado MD [facility] [address] Hypogonadism in male; Abnormal results of function [...] Sign Reading Time Taken Comments Blood Pressure 122/80 10/06/2022 4:10 PM EDT Pulse 80 10/06/2022 4:10 PM EDT Temperature - - Respiratory Rate - - Oxygen Saturation - - Inhaled Oxygen Concentration - - Weight - - Height - - Body Mass Index - - documented in this encounter Progress Notes * Desean Coronado MD - 10/06/2022 4:00 PM EDT I had the pleasure of seeing Mr. Chacon back today in followup. He presents today for duplex Doppler ultrasonography of his penis to identify and characterize his erectile dysfunction and Peyronie's disease. At our initial visit he reported 30 degree dorsal penile curvature and bilateral indentation. At our last visit he noted that his erectile dysfunction was sufficiently responsive to sildenafil at the 50 mg and 100 mg doses, but today he notes this was during masturbation.Thus it is unclear if he has bending with full erection as described in his initial visit. At his last visit we also discussed his symptomatic hypogonadism and today he notes that he has elected to proceed with testosterone injections as per our discussion. PROCEDURE: The patient was brought back to the procedure room. The procedure was explained in detail and he agreed to proceed. He was given an injection of 5 units of mix #5. This is a standard rangedose mix consisting of 30 mg papaverine, 1 mg phentolamine, and 10 mcg prostaglandin E1. About 15 minutes later, he had a 30% erection and was redosed with another 15 units of mix #5. About 15 minutes later he had a 50% erection and measurements were taken. Penile curvature was measured by goniometer and was noted to be 20 degrees to the right and 20 degrees dorsal. Cavernosal arterial diameters were 1 mm on the right and 1 mm on the left. Peak systolic velocitieswere 23 cm/second on the right and 29 cm/second on the left. End diastolic velocities were 9 cm/second on the right and 9 cm/second on the left. No perforators were seen traversing between the corpora. Cavernosal arteries had normal vascular integrity and smooth vessel espino. Erectile tissue appeared normal with intact integrity and homogeneity throughout. On grayscale evaluation for Peyronie's disease at the point of maximal curvature no penile plaque was seen. Tunica albuginea integrity appeared normal, with smooth and continuous tunica with thickness less than 2 mm. At the end of the procedure, his phallus had mostly detumesced. He denied penile pain. He was discharged from clinic with appropriate plans for followup. ASSESSMENT/PLAN: Mr. Chacon is a very pleasant 36-year-old gentleman with chronic phase Peyronie's disease and mixed arteriogenic and venoocclusive erectile dysfunction. He also has acquired buried penis. He also has symptomatic hypogonadism. We discussed these issues at length today. Unfortunately his penile curvature was not sufficiently evaluated during DDU today. He was unable to achieve an erection sufficient to quantify penile curvature to an accurate degree. Per his report,he has better response to sildenafil at home, although it is unclear if this medication resulted inan erection that is suitable for sexual activity without bending at maximal erection. Regarding his symptomatic hypogonadism. He underwent nurse teaching for testosterone injections today and will start at 1 mL of 200 mg/mL testosterone cypionate every 14 days. He will have repeat labwork in 2 months, drawn in the middle of his cycle. I will contact him with these results. He will tell me at that time if improvement in testosterone and if sildenafil have both been sufficient to improve his erectile quality in order to accurately quantify his penile curvature further. I advised him to take photographs at home at maximal erection and have given him a goniometer to use to quantify curvature further. We will also work on his acquired buried penis once we have adequately improved his symptomatic hypogonadism and erectile dysfunction and Peyronie's disease. He expressed understanding of this plan, and all questions were answered to his satisfaction. Thank you for allowing me to participate in his care. Please do not hesitate to contact me if you have any questions. documented in this encounter Plan of Treatment Upcoming Encounters Date Type Department Care Team (Late st Contact Info) Description 01/19/2024 1:00 PM EST Office Visit [facility]rology at [place] [facility] [address] [place] [phone] Desean Coronado MD [facility] [place] [address] 01/22/2024 12:30 PM EST Office Visit Neurosurgery at [facility] [address] [facility] [place] [address] Hema Ecsalante MD [facility] [place] [address] [place] [address] 02/01/2024 12:00 PM EST [place] [phone] Georgette Monae PA [facility] [place] [address] 05/30/2024 10:30 AM EDT [place] [phone] documented as of this encounter Goals Goal Patient Goal Type Associated Problems Recent Progress Patient-Stated? Author prevention of MS relapse Patient Facing Action Plan Dionicio Almeida, [facility] documented as of this encounter Results * Estradiol (01/17/2023 10:26 AM EST) Estradiol 104 pg/mL [facility] Comment: Reference ranges: Males: Adult: ? 11 to 43 pg/mL Females: Non- females: ?Follicular: ??12-233 pg/mL ?Ovulation: ?? 41-398 pg/mL ?Luteal: ?22-341 pg/mL ?Postmenopausal: ?? <5 - 138 pg/mL females: ?1st trimester: ??154-3243 pg/mL ?2nd trimester: ??1561-47217 pg/mL ?3rd trimester: ??8525- >59951 pg/mL Blood 01/17/2023 10:2 6 AM EST 01/17/2023 10:31 AM EST Narrative Resulting Agency Comment Spec In Lab Desean Coronado MD CHEMISTRY ORDERABLES Performing Organization Address City/State/[facility] de Phone Number [facility] [place] [address] * PSA (Ultrasensitive) (01/17/2023 10:26 AM EST) Prostate Specific Antigen (Ultrasensitive) 0.50 0.00 - 4.00 ng/mL [facility] Comment: PLEASE NOTE: The above [...] Coronado MD CHEMISTRY ORDERABLES Performing Organization Address [facility] de Phone Number [facility] [place] [address] * (ABNORMAL) Testosterone, total (01/17/2023 10:26 AM EST) Pathologist [facility] Testosterone 8.61(H) 2.49 - 8.36 ng/mL [facility] Comment: Pediatric Reference Ranges: ? [...] In Lab Desean Coronado MD CHEMISTRY ORDERABLES [facility] [place] [address] documented in this encounter Visit Diagnoses Diagnosis Hypogonadism in male Abnormal results of function studies of other organs and systems Peyronie's disease Erectile dysfunction, unspecified erectile dysfunction type Acquired buried penis Other specified disorder of penis documented in this encounter Administered Medications Inactive Administered Medications - up to 3 most recent administrations Medication Order MAR Action Action Date Dose Rate Site testosterone cypionate (DepoTESTOSTERONE Cypionate) (200mg/mL) injection 200 mg 200 mg, Intramuscular, ONCE, 1 dose, On Serina 10/06/22 at 1815, Routine Given 10/06/2022 6:15 PM EDT 200 mg Right Quadriceps documented in this encounter Care Teams Spiral Gear Generator Relationship Specialty Start Date End Date Lamont Owusu MD [address] [place] [address] PCP - General Family Medicine 02/10/21 documented as of this encounter
--- OUTSIDE RECORDS SUMMARY | 2024-01-15 20:02 | XMS_ITS | Encounter Summary ---
Author Organization [facility] [place] [address] Care Team Providers Care Transmission Supervisor Name Role Phone Lamont Owusu MD Primary Care Provider +1 [phone] Encounter Details Date Type Department Care Team (Late st Contact Info) Description 01/18/2023 [place] [phone] Carolin Ordaz RN Social History Tobacco Use [...] Progress Notes * Carolin Ordaz RN - 01/18/2023 4:56 PM EST Call placed to patient as requested per Dr. Coronado, message reviewed with patient. Patient is not bothered by breast enlargement or tenderness. Patient reports improved erectile function with combination of sildenafil and testosterone, he willneed a refill on testosterone. Patient in agreement with plan for follow up. documented in this encounter Miscellaneous Notes * Telephone Encounter - Carolin Ordaz RN - 01/18/2023 4:56 PM EST ----- Message from Desean Coronado MD sent at 01/17/2023 5:15 PM EST ----- Please let him know labs look good. Estradiol was a little high and please check if he is having any symptoms of this (i.e. breast tenderness or enlargement). Plan per my last note was to see if his erectile function was improved with the combination of sildenafil and testosterone replacement therapy. Please ask him if this is the case. If so, I want to see him 6 months from his last visit. If not, I want to see him sooner. Thanks. ----- Message ----- From: Mert, Lab In [facility] Sent: 01/17/2023 10:36 AM EST To: Desean Coronado MD documented in this encounter Plan of Treatment Upcoming Encounters Date Type Department Care Team (Late st Contact Info) Description 01/19/2024 1:00 PM EST Office Visit Urology at [place] [facility] [address] [place] [phone] Desean Coronado MD [facility] [place] [address] 01/22/2024 12:30 PM EST Office Visit Neurosurgery at [facility] [address] [place] [address] Hema Escalante MD [address] [facility] [address] Liudmila Oates PA [address] [facility] [place] [address] 02/01/2024 12:00 PM EST Office [place] [address] Georgette Monae PA [facility] [place] [address] 05/30/2024 10:30 AM EDT [place]ointment [place] [address] documented as of this encounter Goals Goal Patient Goal Type Associated Problems Recent Progress Patient-Stated? Author prevention of MS relapse Patient Facing Action Plan Dionicio Almeida, [facility] documented as of this encounter Visit Diagnoses Not on filedocumented in this encounter Care Teams Transmission Supervisor Relationship Specialty Start Date End Date Lamont Owusu MD [address] [place] [address] PCP - General Family Medicine 02/10/21 documented as of this encounter
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
--- OUTSIDE RECORDS SUMMARY | 2024-01-15 20:02 | XMS_ITS | Encounter Summary ---
Author Organization [facility] Melinda meyerиван [place] [address] Care Team Providers Care Sausage Canner Name Role Phone Lamont Owusu MD Primary Care Provider [phone] Reason for Visit * Reason Onset Date Comments Medication Refill 01/19/2023 Encounter Details Date Type Department Care Team (Late st Contact Info) Description 01/19/2023 [place] [address] Desean Coronado MD [facility] [address] Hypogonadism in male Social History Tobacco Use [...] 1:00 PM EST Office Visit [facility] at [place] [facility] [address] [place] [phone] Desean Coronado MD [facility] [place] [address] 01/22/2024 12:30 PM EST Office Visit Neurosurgery at [facility] [address] [place] [address] [place] [address] Liudmila Oates PA [address] [address] 02/01/2024 12:00 PM EST Office [place] [phone] Georgette Monae PA [facility] [place] [place] [address] 05/30/2024 10:30 AM EDT Appointment [place] [phone] documented as of this encounter Goals Goal Patient Goal Type Associated Problems Recent Progress Patient-Stated? Author prevention of MS relapse Patient Facing Action Plan Dionicio Almeida, [facility] documented as of this encounter Visit Diagnoses Diagnosis Hypogonadism in male documented in this encounter Care Teams Sausage Canner Relationship Specialty Start Date End Date Lamont Owusu MD [address] [place] [address] PCP - General Family Medicine 02/10/21 documented as of this encounter
--- OUTSIDE RECORDS SUMMARY | 2024-01-15 20:02 | XMS_ITS | Encounter Summary ---
Author Organization [facility] Address [facility] [place] [place] [address] Care Team Providers Care Assistant Women'S Tennis Coach Name Role Phone Lamont Owusu MD Primary Care Provider [phone] Reason for Visit * Reason Onset Date Comments Medication Refill 12/08/2022 Encounter Details Date Type Department Care Team (Late st Contact Info) Description 12/08/2022 [place] [address] Erick York III, MD [facility] [place] [place] [address] Multiple sclerosis Social History Tobacco Use Types [...] Telephone Encounter - Jennie Rice MA - 12/09/2022 9:22 AM EDT Prescription Renewal Request Name: Erick [...] Date of Last Refill (for each medication): 10/07/2022 60 tabs with 1 refill Medication category requirements (labs etc): n/a Status of request: Pended No Known Allergies Jennie Rice MA 12/09/22 9:27 AM documented in this encounter Plan of Treatment Upcoming Encounters Date Type Department Care Team (Late st Contact Info) Description 01/19/2024 1:00 PM EST Office Visit [facility] at [place] [facility] [address] [place] [phone] Desean Coronado MD [facility] [place] [address] 01/22/2024 12:30 PM EST Office Visit Neurosurgery at [facility] 10 [place] [address] Hema Escalante MD 10 [facility] [place] [address] Liudmila Oates PA 10 [facility] [place] [address] 02/01/2024 12:00 PM EST Office [place] [address] Georgette Monae PA [facility] [place] [place] [address] 05/30/2024 10:30 AM EDT [place]ointment [place] [phone] documented as of this encounter Goals Goal Patient Goal Type Associated Problems Recent Progress Patient-Stated? Author prevention of MS relapse Patient Facing Action Plan Dionicio Almeida, [facility] documented as of this encounter Visit Diagnoses Diagnosis Multiple sclerosis documented in this encounter Care Teams Assistant Women'S Tennis Coach Relationship Specialty Start Date End Date Lamont Owusu MD [address] [place] [address] PCP - General Family Medicine 02/10/21 documented as of this encounter
--- OUTSIDE RECORDS SUMMARY | 2024-01-15 20:02 | XMS_ITS | Encounter Summary ---
Author Organization [facility] Address [facility] [place] [address] Care Team Providers Care Brick Or Block Maker Name Role Phone Lamont Owusu MD Primary Care Provider [phone] Encounter Details Date Type Department Care Team (Latest Contact Info) Description 01/17/2023 Travel Social History Tobacco Use Types Packs/Day [...] 1:00 PM EST Office Visit [facility] at [place] [facility] [address] [place] [phone] Desean Coronado MD [facility] [place] [address] 01/22/2024 12:30 PM EST Office Visit Neurosurgery at [facility] 10 [place] [phone] Hema [address] [facility] [place] [address] [place] [address] 02/01/2024 12:00 PM EST [place] [phone] Georgette Monae PA [facility] [place] [place] [address] 05/30/2024 10:30 AM EDT [place] [phone] documented as of this encounter Goals Goal Patient Goal Type Associated Problems Recent Progress Patient-Stated? Author prevention of MS relapse Patient Facing Action Plan Dionicio Almeida, [facility] documented as of this encounter Visit Diagnoses Not on filedocumented in this encounter Care Teams Brick Or Block Maker Relationship Specialty Start Date End Date Lamont Owusu MD [facility] [address] [place] [address] PCP - General Family Medicine 02/10/21 documented as of this encounter
--- OUTSIDE RECORDS SUMMARY | 2024-01-15 20:02 | XMS_ITS | Encounter Summary ---
Author Organization [facility] Address [facility] Melinda [facility] [place] [address] Care Team Providers Care Denture Finisher Name Role Phone Lamont Owusu MD Primary Care Provider [phone] [phone] Encounter Details Date Type Department Care Team (Late st Contact Info) Description 04/06/2023 4:20 PM EST Office [place] [address] Desean Coronado MD [facility] [place] [address] Hypogonadism in male; Abnormal results of function studies of other organs and systems; Peyronie's disease; Erectile dysfunction, unspecified erectile dysfunction type; Acquired buried penis Social History Tobacco Use Types Packs/Day Years Used Date Smoking Tobacco: Every Day Cigarettes Last attempted to quit: 08/20/2018 Smokeless Tobacco: Never Tobacco Cessation:Ready to Q uit: Not Asked; Counseling Given: Not Answered Alcohol Use Standard Drinks/Week Comments Not Currently [...] Sign Reading Time Taken Comments Blood Pressure 143/93 04/06/2023 4:05 PM EST Pulse 77 04/06/2023 4:05 PM EST Temperature - - Respiratory Rate - - Oxygen Saturation 97% 04/06/2023 4:05 PM EST Inhaled Oxygen Concentration - - Weight - - Height - - Body Mass Index - - documented in this encounter Progress Notes * Desean Coronado MD - 04/06/2023 4:20 PM EST S: I saw Mr. Chacon in follow-up for his history of hypogonadism. He was previously seen in September for this issue. He has been on a regimen of injectable testosterone cypionate dosed 1 mL of 200 mg/mL every 14 days. He denies any adverse effects from this medication but does note left nipple tenderness. He does note improvement in his hypogonadal symptoms on this medication. His last testosterone measurement was 861 in December. His last CBC showed a hematocrit of 47.2 in December. His last PSA was 0.5 in December. His last estradiol was 104 in December. These labs were drawn 1 week after injection. He also has a history of erectile dysfunction and was last seen for this issue in September for DDU. At that visit he was found to have mixed arteriogenic and venoocclusive erectile dysfunction. He alsohas Peyronie's disease and during that visit penile curvature was noted to be 20 degrees to the right and 20 degrees dorsal but he was unable to achieve erection to measure curvature accurately. He reports today that his ED is sufficiently responsive to sildenafil at the 50 mg dose for sexual activity. He continues to note a hinging with erection but from his description it is unclear if this is indeed a hinge deformity and the photos he brought in today are inconclusive (nor do they demonstrate significant penile curvature). He also reports pain in his penis at the point where he says bending occurs, and says this pain is worse prior to ejaculation. He also has a history of acquired buried penis and the plan is to treat this once his other urologic issues have been successfully resolved. There have been no changes to his [...] abdomen is nondistended. A: This is a 37-year-old gentleman with [...] were answered to his satisfaction. Thank you very much for allowing me to participate in his care. Please do not hesitate to contact me if you have any questions. documented in this encounter Plan of Treatment Upcoming Encounters Date Type Department Care Team (Late st Contact Info) Description 01/19/2024 1:00 PM EST Office Visit [facility] at [place] [facility] [address] [place] [phone] Desean Coronado MD [facility] [place] [address] 01/22/2024 12:30 PM EST Office Visit Neurosurgery at [facility] 10 [place] [address] Hema Escalante MD [address] [facility] [place] [address] Liudmila Oates PA [address] [facility] [place] [address] 02/01/2024 12:00 PM EST Office [place] [phone] Georgette Monae PA [facility] [place] [address] 05/30/2024 10:30 AM EDT Appointment [place] [phone] documented as of this encounter Goals Goal Patient Goal Type Associated Problems Recent Progress Patient-Stated? Author prevention of MS relapse Patient Facing Action Plan Dionicio Almeida, [facility] documented as of this encounter Results * Estradiol (06/16/2023 12:55 PM EDT) Estradiol <5 pg/mL [facility] Comment: Reference ranges: Males: Adult: ? 11 to 43 pg/mL Females: Non- females: ?Follicular: ??12-233 pg/mL ?Ovulation: ?? 41-398 pg/mL ?Luteal: ?22-341 pg/mL ?Postmenopausal: ?? <5 - 138 pg/mL females: ?1st trimester: ??154-3243 pg/mL ?2nd trimester: ??1561-50966 pg/mL ?3rd trimester: ??8525- >57495 pg/mL Blood 06/16/2023 12:5 5 PM EDT 06/16/2023 1:11 PM EDT Narrative Resulting Agency Comment Spec In Lab Desean Coronado MD CHEMISTRY ORDERABLES Performing Organization Address [facility] de Phone Number [facility] [address] * PSA (Ultrasensitive) (06/16/2023 12:55 PM EDT) Prostate Specific Antigen (Ultrasensitive) 0.65 0.00 - 4.00 ng/mL [facility] Comment: PLEASE NOTE: The above [...] Coronado MD CHEMISTRY ORDERABLES Performing Organization Address [facility] de Phone Number [facility] [place] [address] * (ABNORMAL) Testosterone, total (06/16/2023 12:55 PM EDT) Testosterone 14.40(H) 2.49 - 8.36 ng/mL [facility] Comment: Pediatric Reference Ranges: ? [...] In Lab Desean Coronado MD CHEMISTRY ORDERABLES [facility] [place] [address] documented in this encounter Visit Diagnoses Diagnosis Hypogonadism in male Abnormal results of function studies of other organs and systems Peyronie's disease Erectile dysfunction, unspecified erectile dysfunction type Acquired buried penis Other specified disorder of penis documented in this encounter Care Teams Denture Finisher Relationship Specialty Start Date End Date Lamont Owusu MD [address] [place] [address] PCP - General Family Medicine 02/10/21 documented as of this encounter
--- OUTSIDE RECORDS SUMMARY | 2024-01-15 20:02 | XMS_ITS | Encounter Summary ---
Author Organization [facility] [place] [address] Care Team Providers Care Professor Of Architecture Name Role Phone Lamont Owusu MD Primary Care Provider [phone] Encounter Details Date Type Department Care Team (Late st Contact Info) Description 08/12/2022 9:50 AM EDT Laboratory Appointment Lab [address] [place] [phone] Low libido Social History Tobacco Use Types [...] 1:00 PM EST Office Visit [facility] at [facility] [address] [place] [phone] Desean Coronado MD [facility] [place] [address] 01/22/2024 12:30 PM EST Office Visit [place] [phone] Hema Escalante [place] [address] Liudmila [place] [address] 02/01/2024 12:00 PM EST Office [place] [phone] Georgette Monae PA [facility] [place] [address] 05/30/2024 10:30 AM EDT Appointment [place] [phone] documented as of this encounter Goals Goal Patient Goal Type Associated Problems Recent Progress Patient-Stated? Author prevention of MS relapse Patient Facing Action Plan Dionicio Almeida, [facility] documented as of this encounter Procedures Procedure Name Priority Date/Time Associated Diagnosis Comments HEMOGRAM Routine 08/12/2022 10:05 AM EDT Low libido DIFFERENTIAL, AUTOMATED Routine 08/12/2022 10:05 AM EDT Low libido PROLACTIN Routine 08/12/2022 10:05 AM EDT Low libido ESTRADIOL Routine 08/12/2022 10:05 AM EDT Low libido CBC (WITH DIFF) Routine 08/12/2022 10:05 AM EDT Low libido TESTOSTERONE, TOTAL Routine 08/12/2022 1 0:05 AM EDT Low libido PSA (ULTRASENSITIVE) Routine 08/12/2022 10:05 AM EDT Low libido HC LH ASSAY, SERUM Routine 08/12/2022 10 :05 AM EDT Low libido documented in this encounter Results * Differential, Automated (08/12/2022 10:05 AM EDT) Neutrophil % 57.6 % [facility] Neutrophil Absolute 4.28 1.70 - 6.10 x10(3)/[facility] LAB[facility] Lymph % 29.2 % [facility] Lymphocytes Abs 2.2 0.9 - 3.2 x10(3)/[facility]ORATORY Monocyte % 9.8 % [facility] Monocyte Abs 0.7 0.3 - 0.9 x10(3)/[facility] LABORATORY Eos % 2.2 % [facility] Eosinophils Abs 0.2 0.0 - 0.4 x10(3)/[facility] LABORATORY Basophil % 0.8 % [facility] Baso Absolute 0.1 0.0 - 0.1 x10(3)/[facility] LABORATORY Immature Gran % 0.40 % [facility] Comment: Immature granulocytes(IG's)percentage and absolute count will include metamyelocytes, myelocytes, and promyelocytes. Blood smears from CBCs yielding IG's will be scanned manually for concordance. If this scan disagrees with the automated IG or if promyelocytes are noted, a manual differential will be performed. Immature Gran Absolute 0.03 0.00 - 0.04 x10(3)/[facility]ATORY Blood 08/12/2022 10:0 5 AM EDT 08/12/2022 10:13 AM EDT Narrative Resulting Agency Comment Spec In Lab Desean Coronado MD HEMATOLOGY ORDERABLE S [facility] [place] [address] * (ABNORMAL) Hemogram (08/12/2022 10:05 AM EDT) Pathologist [facility] [place] White Blood Cell 7.4 4.0 - 9.5 x10(3)/mc L [facility] Red Blood Cell 4.67 4.58 - 5.54 x10(6)/mc L [facility] Hemoglobin 13.8 13.7 - 16.5 g/dL [facility] Hematocrit 40.2(L) 40.5 - 48.5 % [facility] Mean Cell Volume 86.1 82.9 - 93.1 fL [facility] Mean Cell Hemoglobin 29.6 27.5 - 32.1 pg [facility] Mean Cell Hemoglobin Concentration 34.3 32.0 - 35.7 g/dL [facility] Platelet 203 145 - 357 x10(3)/mc L [facility] RDW Standard Deviation 40.2 36.0 - 45.0 fL [facility] RDW coefficient of variation 12.8 11.4 - 13.8 % [facility] Mean Platelet Volume 11.3 7.6 - 12.9 fL [facility] NRBC% auto 0.0 % [facility] NRBC Absolute 0.000 0.000 - 0.000 x10(3)/mc L [facility] Blood 08/12/2022 10:0 5 AM EDT 08/12/2022 10:13 AM EDT Narrative Resulting Agency Comment Spec In Lab Desean Coronado MD HEMATOLOGY ORDERABLE S [facility] [place] [address] * Luteinizing Hormone (08/12/2022 10:05 AM EDT) Luteinizing Hormone 2.4 1.7 - 8.6 mlU/ML [facility] Comment: Reference Ranges Male: ? 1.7-8.6 mIU/mL Female ?? Follicular: ?2.4-12.6 mIU/mL ?? Ovulation: ? 14.0-95.6 mIU/mL ?? Luteal: ?1.0-11.4 mIU/mL ?? Postmenopausal: ?7.7-58.5 mIU/mL Blood 08/12/2022 10:0 5 AM EDT 08/12/2022 10:12 AM EDT Narrative Resulting Agency Comment Spec In Lab Desean Coronado MD CHEMISTRY ORDERABLES Performing Organization Address City/[facility] Co de Phone Number [facility] [place] [address] * Prolactin (08/12/2022 10:05 AM EDT) Prolactin 8.3 4.0 - 15.2 ng/mL [facility] Blood 08/12/2022 10:0 5 AM EDT 08/12/2022 10:12 AM EDT Narrative Resulting Agency Comment Spec In Lab Desean Coronado MD CHEMISTRY ORDERABLES Performing Organization Address [facility] Co de Phone Number [facility] [place] [address] * Estradiol (08/12/2022 10:05 AM EDT) Estradiol 17 pg/mL [facility] Comment: Reference ranges: Males: Adult: ? 11 to 43 pg/mL Females: Non- females: ?Follicular: ??12-233 pg/mL ?Ovulation: ?? 41-398 pg/mL ?Luteal: ?22-341 pg/mL ?Postmenopausal: ?? <5 - 138 pg/mL females: ?1st trimester: ??154-3243 pg/mL ?2nd trimester: ??1561-62796 pg/mL ?3rd trimester: ??8525- >64664 pg/mL Blood 08/12/2022 10:0 5 AM EDT 08/12/2022 10:12 AM EDT Narrative Resulting Agency Comment Spec In Lab Desean Coronado MD CHEMISTRY ORDERABLES Performing Organization Address City/[facility] Co de Phone Number [facility] [place] [address] * PSA (Ultrasensitive) (08/12/2022 10:05 AM EDT) Prostate Specific Antigen (Ultrasensitive) 0.37 0.00 - 4.00 ng/mL [facility] Comment: PLEASE NOTE: The above reference [...] In Lab Desean Coronado MD CHEMISTRY ORDERABLES [facility] [place] [address] * (ABNORMAL) Testosterone, total (08/12/2022 10:05 AM EDT) Pathologist [facility] [place] Testosterone 0.90(L) 2.49 - 8.36 ng/mL [facility] Comment: Pediatric Reference Ranges: ? Males [...] Stated reference ranges derived from review of [employer] Marissa Testosterone II 12/2021, v2.0 Blood 08/12/2022 10:0 5 AM EDT 08/12/2022 10:12 AM EDT Narrative Resulting Agency Comment Spec In Lab Dseean Coronado MD CHEMISTRY ORDERABLES Performing Organization Address City/State/[facility] Co de Phone Number [facility] [address] documented in this encounter Visit Diagnoses Diagnosis Low libido documented in this encounter Care Teams Professor Of Architecture Relationship Specialty Start Date End Date Lamont Owusu MD [address] [place] [address] PCP - General Family Medicine 02/10/21 documented as of this encounter
--- OUTSIDE RECORDS SUMMARY | 2024-01-15 20:02 | XMS_ITS | Encounter Summary ---
Author Organization [facility] Address [facility] [place] [address] Care Team Providers Care Tray Drier Operator Name Role Phone Lamont Owusu MD Primary Care Provider [phone] Encounter Details Date Type Department Care Team (Latest Contact Info) Description 06/20/2022 Travel Social History Tobacco Use Types Packs/Day [...] 1:00 PM EST Office Visit [facility] at [place] [facility] [address] [place] [phone] Desean Coronado MD [facility] [place] [address] 01/22/2024 12:30 PM EST Office Visit Neurosurgery at [facility] [address] [place] [phone] Hmea Escalante MD [facility] [place] [address] [place] [address] 02/01/2024 12:00 PM EST [place] [phone] Georgette Monae PA [facility] [place] [address] 05/30/2024 10:30 AM EDT [place] [phone] documented as of this encounter Goals Goal Patient Goal Type Associated Problems Recent Progress Patient-Stated? Author prevention of MS relapse Patient Facing Action Plan Dionicio Almeida, [facility] documented as of this encounter Visit Diagnoses Not on filedocumented in this encounter Care Teams Tray Drier Operator Relationship Specialty Start Date End Date Lamont Owusu MD [facility] [address] [place] [address] PCP - General Family Medicine 02/10/21 documented as of this encounter
--- OUTSIDE RECORDS SUMMARY | 2024-01-15 20:02 | XMS_ITS | Encounter Summary ---
Author Organization [facility] Address [facility] [place] [address] Care Team Providers Care Orthopaedic Physician Assistant Name Role Phone Lamont Owusu MD Primary Care Provider [phone] Reason for Visit * Reason Onset Date Comments Medication Refill 01/28/2023 Encounter Details Date Type Department Care Team (Late st Contact Info) Description 01/28/2023 [place] [phone] Erick York III, MD [facility] [place] [address] Multiple sclerosis Social History Tobacco Use Types [...] Miscellaneous Notes * Telephone Encounter - Jennie iRce MA - 01/31/2023 4:31 PM EST Prescription Renewal Request Name: Erick [...] Date of Last Refill (for each medication): 01/11/2023 30 tabs with 0 refills Medication category requirements (labs etc): n/a Status of request: Pended No Known Allergies Jennie Rice MA 01/31/23 4:32 PM documented in this encounter Plan of Treatment Upcoming Encounters Date Type Department Care Team (Late st Contact Info) Description 01/19/2024 1:00 PM EST Office Visit Urology at [place] [facility] [address] [place] [phone] Desean Coronado MD [facility] [place] [address] 01/22/2024 12:30 PM EST Office Visit Neurosurgery at [facility] 10 [place] [address] Hema Escalante MD [address] [facility] [place] [address] Liudmila Oates PA [address] [facility] [place] [address] 02/01/2024 12:00 PM EST Office [place] [phone] Georgette Monae PA [facility] [place] [address] 05/30/2024 10:30 AM EDT Appointment [place] [phone] documented as of this encounter Goals Goal Patient Goal Type Associated Problems Recent Progress Patient-Stated? Author prevention of MS relapse Patient Facing Action Plan Dionicio Almeida, [facility] documented as of this encounter Visit Diagnoses Diagnosis Multiple sclerosis documented in this encounter Care Teams Orthopaedic Physician Assistant Relationship Specialty Start Date End Date Lamont Owusu MD [address] [place] [address] PCP - General Family Medicine 02/10/21 documented as of this encounter
--- OUTSIDE RECORDS SUMMARY | 2024-01-15 20:03 | XMS_ITS | Encounter Summary ---
Author Organization [place] [address] Care Team Providers Care Men'S Basketball Coach Name Role Phone Rodriguez Roberts MD Primary Care Provider [phone] Reason for Visit * Reason Comments Medication Management Encounter Details Date Type Department Care Team (Late st Contact Info) Description 01/07/2021 Specialty [place] [phone] Dionicio Doherty [facility] Social History Tobacco Use Types Packs/Day Years [...] this encounter Progress Notes * Dionicio Doherty RP - 01/07/2021 1:28 PM EST Clinical Management Plan: Medication Question Specialty Pharmacy Consultation; Dionicio Doherty [facility] Comprehensive Medication Management (CMM) Erick Narvaezbrigida Mr. Erick Chacon is a 35 y.o. (1985) male who contacted Specialty Pharmacy regarding a concern with their specialty medication, Tecfidera. Summary and Recommendations: Specialty Pharmacy has tried contacting Erick several times via phone and [facility] messages regarding a refill reminder and consult for his Tecfidera, but we have not received any response. It appears that he is currently not adherent to the medication. We last sent it to him on 11/27/20, so his next fill was due about 12/28/20. We will continue to try to contact him, but if we don't get a responsein the next 2 weeks, we will likely stop our outreach attempts until we hear back from him. Clinic follow-up needed: yes - please try to reach patient Was a change made to the Care Plan: no If yes, should the medication be held: No Pt understands no changes to current drug regimen were made at the appointment and that [facility] is providing recommendations (summary located at top of note) for provider review and follow up. Dionicio Doherty RPH 01/07/21 1:33 PM documented in this encounter Plan of Treatment Upcoming Encounters Date Type Department Care Team (Late st Contact Info) Description 01/19/2024 1:00 PM EST Office Visit Urology at [facility] [facility] [address] [place] [phone] Desean Coronado MD [facility] [place] [address] 01/22/2024 12:30 PM EST Office Visit Neurosurgery at [facility] [place] [address] Hema Escalante MD [address] [facility] [place] [address] Liudmila Oates PA [address] [facility] [address] 02/01/2024 12:00 PM EST Office [place] [address] Georgette Monae PA [facility] [place] [address] 05/30/2024 10:30 AM EDT Appointment [place] [phone] documented as of this encounter Visit Diagnoses Not on filedocumented in this encounter Care Teams Men'S Basketball Coach Relationship Specialty Start Date End Date Rodriguez Roberts MD [address] [place] [address] PCP - General 11/15/13 02/09/21 documented as of this encounter
--- OUTSIDE RECORDS SUMMARY | 2024-01-15 20:03 | XMS_ITS | Encounter Summary ---
[place] [address] Care Team Providers Care Auto Electrical Technician Name Role Phone Lamont Owusu MD Primary Care Provider [phone] Reason for Referral * Consultation (Routine) - Closed Specialty Diagnoses / Procedures Referred By Contxavier t Referred To Contact Urology Diagnoses Decreased libido Lamont Owusu MD [address] [place] [address] [facility] [place] [address] Referral ID Status Reason Start Date Expiration Date V isits Requested Visits Authorized [id number] Closed Consult, Test & Treat PCP Updated and/or Approved 09/29/2021 09/29/2022 6 6 Encounter Details Date Type Department Care Team (Late st Contact Info) Description 09/29/2021 Transcribe Orders eDH Incoming Referrals [phone] Lamont Owusu MD [address] [place], [place] [phone] Decreased libido Social History Tobacco Use Types Packs/Day [...] 1:00 PM EST Office Visit Urology at [facility] [address] [place] [phone] Desean Coronado MD [facility] [address] 01/22/2024 12:30 PM EST Office Visit Neurosurgery at [facility] 10 [place] [address] Hema Escalante MD [address] [facility] [place] [address] Liudmila Oates PA [address] [facility] [place] [address] 02/01/2024 12:00 PM EST [place] [address] Georgette Monae PA [facility] [place] [place] [address] 05/30/2024 10:30 AM EDT [place] [address] Scheduled Referrals Name Type Priority Associated Diagnoses Orde r Schedule Referral to Urology Outpatient Referral Routine Decreased libido Ordered: 09/29/2021 documented as of this encounter Goals Goal Patient Goal Type Associated Problems Recent Progress Patient-Stated? Author prevention of MS relapse Patient Facing Action Plan Dionicio Almeida, [facility] documented as of this encounter Visit Diagnoses Diagnosis Decreased libido documented in this encounter Care Teams Auto Electrical Technician Relationship Specialty Start Date End Date Lamont Owusu MD [address] [place] [address] PCP - General Family Medicine 02/10/21 documented as of this encounter
--- OUTSIDE RECORDS SUMMARY | 2024-01-15 20:03 | XMS_ITS | Encounter Summary ---
Author Organization [facility] [place] [address] Care Team Providers Care Pc Installation Engineer Name Role Phone Rodriguez Roberts MD Primary Care Provider [phone] Reason for Visit * Reason Comments Prior Authorization Tecfidera 240MG CPDR Encounter Details Date Type Department Care Team (Late st Contact Info) Description 08/25/2020 Specialty [place] [phone] Tyler Shah, SNOWBOARD INSTRUCTOR Social History Tobacco Use Types Packs/Day Years [...] as of this encounter Progress Notes * Tyler Shah - 08/25/2020 9:50 AM EDT [facility], Medication Prior Authorization Patient: Ada Valero Ines Patient : 1985 Patient Address: [address] [place] [address] [address] [facility] [address] (home) Medication Name: TECFIDERA 240 MG CAPSULE,DELAYED RELEASE Medication ID: [id number] Patient Location: [facility] 3C Patient Location Comment: Subscriber Insurance: [place] Medicaid Subscriber Insurance Comment: Fax: Physician: ADA ZAVALA III Physician Comment: Sent Via: Fax Zarate: Ref/Case/PA#: Medication Strength Frequency Requested: Tecfidera 240MG CPDR Take one capsule by mouth two times daily Qty/Day Supply: New Start: Renewal Diagnosis & ICD-10 Code: Multiple sclerosis [G35] Patient Notified: No Submission Notes: None Tyler Shah 08/25/20 9:54 AM * Tyler Shah - 08/25/2020 9:50 AM EDT [facility], Prior Authorization Approval Medication Name: TECFIDERA 240 MG CAPSULE,DELAYED RELEASE Medication ID: [id number] Approval Dates: 08/25/2020 to 08/25/2021 Insurance requirements/notes: None Other Notes: None Case/Reference #: [id number] Approval notification Received via: Fax Copay: $3.00 Copay assistance: None Copay Notes: Insurance mandated Pharmacy: Fillable at [facility]: Yes Pharmacy staff will be reaching out to the patient to inform them of their medication's approval byecu health insurance. If applicable, a pharmacist will speak with the patient to offer our specialty pharmacy services and to arrange delivery of their medication. Tyler Shah 08/25/20 1:02 PM documented in this encounter Plan of Treatment Upcoming Encounters Date Type Department Care Team (Late Contact Info) Description 01/19/2024 1:00 PM EST Office Visit Urology at [place] [facility] [address] [place] [phone] Desean Coronado MD [facility] [place] [address] 01/22/2024 12:30 PM EST Office Visit Neurosurgery at [facility] 10 [place] [address] Hema Escalante MD [address] [facility] [place] [address] Liudmila Oates PA [address] [facility] [place] [place] [address] 02/01/2024 12:00 PM EST Office [place] [phone] Georgette Monae PA [facility] [place] [address] 05/30/2024 10:30 AM EDT Appointment [place] [phone] documented as of this encounter Visit Diagnoses Not on filedocumented in this encounter Care Teams Pc Installation Engineer Relationship Specialty Start Date End Date Rodriguez Roberts MD [address] [place] [address] PCP - General 11/15/13 02/09/21 documented as of this encounter
--- OUTSIDE RECORDS SUMMARY | 2024-01-15 20:03 | XMS_ITS | Encounter Summary ---
Author Organization [facility] Address [facility] [place] [address] Care Team Providers Care Laundry Marker Supervisor Name Role Phone Lamont Owusu MD Primary Care Provider [phone] Reason for Visit * Reason Onset Date Comments Medication Refill 03/24/2022 Encounter Details Date Type Department Care Team (Late st Contact Info) Description 03/24/2022 Refill [place] [address] Erick York III, MD [facility] [place] [address] Multiple sclerosis Social History Tobacco Use Types [...] encounter Miscellaneous Notes * Telephone Encounter - Marium Macias RN - 03/25/2022 10:02 AM EST Surescript request for : baclofen (Lioresal) 10 mg Last rx: 02/24/22 Quantity: 60 Refills: 0 Last appt:02/03/21 Next appt: Was to have been 04/2021, cancelled, no pending FUV. Msg to corporate legal secretary as pt needs to be scheduled for FUV. Pt also messaged in [facility]. documented in this encounter Plan of Treatment Upcoming Encounters Date Type Department Care Team (Late st Contact Info) Description 01/19/2024 1:00 PM EST Office Visit Urology at [place] [facility] [address] [place] [phone] Desean Coronado MD [facility] [place] [address] 01/22/2024 12:30 PM EST Office Visit Neurosurgery at [facility] 10 [place] [address] Hema Escalante MD [address] [facility] [place] [address] Liudmila Oates PA [address] [facility] [place] [address] 02/01/2024 12:00 PM EST Office Visit [place] [phone] Georgette Monae PA [facility] [place] [address] 05/30/2024 10:30 AM EDT Appointment Med [place] [phone] documented as of this encounter Goals Goal Patient Goal Type Associated Problems Recent Progress Patient-Stated? Author prevention of MS relapse Patient Facing Action Plan Dionicio Almeida, [facility] documented as of this encounter Visit Diagnoses Diagnosis Multiple sclerosis documented in this encounter Care Teams Laundry Marker Supervisor Relationship Specialty Start Date End Date Lamont Owusu MD [address] [place] [address] [address] PCP - General Family Medicine 02/10/21 documented as of this encounter
--- OUTSIDE RECORDS SUMMARY | 2024-01-15 20:03 | XMS_ITS | Encounter Summary ---
Author Organization [facility] Address [facility] [place] [address] Care Team Providers Care Rod Greaser Name Role Phone Lamont Owusu MD Primary Care Provider [phone] Reason for Visit * Reason Onset Date Comments Medication Refill 09/02/2021 Encounter Details Date Type Department Care Team (Late st Contact Info) Description 09/02/2021 [place] [address] Erick York III, MD [facility] [place] [address] Multiple sclerosis Social History Tobacco Use Types [...] Telephone Encounter - Eladia Cleary CMA - 09/02/2021 11:36 AM EDT Surescript request for : BACLOFEN Last rx: 05/17/21 Quantity: 180 Refills: 0 Last appt: 02/03/21 Next appt: Pt needs a follow up appt- MSG sent to certified legal secretary specialist pool documented in this encounter Plan of Treatment Upcoming Encounters Date Type Department Care Team (Late st Contact Info) Description 01/19/2024 1:00 PM EST Office Visit Urology at [address] [address] Desean Coronado MD [facility] [place] [address] 01/22/2024 12:30 PM EST Office Visit Neurosurgery at [facility] 10 [place] [phone] Hema Escalante MD [address] [facility] [place] [address] Liudmila Oates PA [address] [facility] [place] [address] 02/01/2024 12:00 PM EST Office [place] [phone] Georgette Monae PA [facility] [place] [address] 05/30/2024 10:30 AM EDT [place] [phone] documented as of this encounter Goals Goal Patient Goal Type Associated Problems Recent Progress Patient-Stated? Author prevention of MS relapse Patient Facing Action Plan Dionicio Almeida, [facility] documented as of this encounter Visit Diagnoses Diagnosis Multiple sclerosis documented in this encounter Care Teams Rod Greaser Relationship Specialty Start Date End Date Lamont Owusu MD [address] [place] [address] PCP - General Family Medicine 02/10/21 documented as of this encounter
--- OUTSIDE RECORDS SUMMARY | 2024-01-15 20:03 | XMS_ITS | Encounter Summary ---
Author Organization [facility] [place] [address] Care Team Providers Care Care Transport Nurse Name Role Phone Lamont Owusu MD Primary Care Provider [phone] Encounter Details Date Type Department Care Team (Late st Contact Info) Description 05/15/2021 [place] [phone] Carolin Keyes MD [facility] [place] [address] Social History Tobacco Use Types Packs/Day Years [...] Miscellaneous Notes * Telephone Encounter - Carolin Keyes MD - 05/15/2021 8:38 PM EDT Returned patient phone call. There was no answer; left voicemail instructing patient to call back if he still needs to speak with the provider. Carolin Keyes MD 05/15/2021 documented in this encounter Plan of Treatment Upcoming Encounters Date Type Department Care Team (Late st Contact Info) Description 01/19/2024 1:00 PM EST Office Visit Urology at [facility] [address] [address] Desean Coronado MD [facility] [place] [address] 01/22/2024 12:30 PM EST Office Visit Neurosurgery at [facility] 10 [place] [address] Hema Escalante MD [address] [place] [address] Liudmila Oates PA [address] [place] [address] 02/01/2024 12:00 PM EST Office [place] [address] Georgette Monae PA [facility] [place] [address] 05/30/2024 10:30 AM EDT [place]oint[place] [phone] documented as of this encounter Goals Goal Patient Goal Type Associated Problems Recent Progress Patient-Stated? Author prevention of MS relapse Patient Facing Action Plan Dionicio Almeida, [facility] documented as of this encounter Visit Diagnoses Not on filedocumented in this encounter Care Teams Care Transport Nurse Relationship Specialty Start Date End Date Lamont Owusu MD [address] [place] [address] [address] PCP - General Family Medicine 02/10/21 documented as of this encounter
--- OUTSIDE RECORDS SUMMARY | 2024-01-15 20:03 | XMS_ITS | Encounter Summary ---
Author Organization [facility] Address [facility] [place] [address] Care Team Providers Care Timing Inspector Name Role Phone Rodriguez Roberts MD Primary Care Provider [phone] Encounter Details Date Type Department Care Team (Late st Contact Info) Description 12/11/2019 Specialty [place] [address] Octavio Yanes, [facility] Social History Tobacco Use Types Packs/Day Years [...] 1:00 PM EST Office Visit Urology at [facility] [address] [place] [phone] Desean Coronado MD [facility] [place] [address] 01/22/2024 12:30 PM EST Office Visit Neurosurgery at [place] [address] Hema Escalante MD [address] [address] Liudmila Oates PA [facility] [address] 02/01/2024 12:00 PM EST [place] [phone] Georgette Monae PA [facility] [place] [address] 05/30/2024 10:30 AM EDT [place] [phone] documented as of this encounter Visit Diagnoses Not on filedocumented in this encounter Care Teams Timing Inspector Relationship Specialty Start Date End Date Rodriguez Roberts MD [address] [place] [address] PCP - General 11/15/13 02/09/21 documented as of this encounter
--- OUTSIDE RECORDS SUMMARY | 2024-01-15 20:03 | XMS_ITS | Encounter Summary ---
Author Organization [facility] [place] [address] Care Team Providers Care Talent Rep Name Role Phone Lamont Owusu MD Primary Care Provider [phone] Reason for Visit * Reason Comments Specialty Pharmacy Review Encounter Details Date Type Department Care Team (Late st Contact Info) Description 02/03/2021 Specialty [place] [phone] Dionicio Doherty Adrianne Social History Tobacco Use Types Packs/Day Years [...] this encounter Progress Notes * Dionicio Doherty RPH - 02/03/2021 10:43 AM EST [facility] has completed a benefits investigation for Erick Marylu Chacon to review their eligibility to fill at [facility]. Per patient's medication list they are prescribed Vumerity and the medication is able to be filled at the [facility]. documented in this encounter Plan of Treatment Upcoming Encounters Date Type Department Care Team (Late st Contact Info) Description 01/19/2024 1:00 PM EST Office Visit Urology at [facility] [address] [place] [phone] Desean Coronado MD [facility] [place] [address] 01/22/2024 12:30 PM EST Office Visit Neurosurgery at [facility] 10 [place] [address] Hema Escalante MD [address] [facility] [place] [address] Liudmila Oates PA [address] [facility] [place] [address] 02/01/2024 12:00 PM EST Office [place] [address] Georgette Monae PA [facility] [place] [address] 05/30/2024 10:30 AM EDT Appointment [place] [address] documented as of this encounter Goals Goal Patient Goal Type Associated Problems Recent Progress Patient-Stated? Author prevention of MS relapse Patient Facing Action Plan Dionicio Almeida, [facility] documented as of this encounter Visit Diagnoses Not on filedocumented in this encounter Care Teams Talent Rep Relationship Specialty Start Date End Date Lamont Owusu MD [address] [place] [address] [address] [facility] [address] [place] [address] PCP - General Family Medicine 02/10/21 documented as of this encounter
--- OUTSIDE RECORDS SUMMARY | 2024-01-15 20:03 | XMS_ITS | Encounter Summary ---
Author Organization [facility] [place] [address] Care Team Providers Care Lockstitch Waistline Joiner Name Role Phone Rodriguez Roberts MD Primary Care Provider [phone] Encounter Details Date Type Department Care Team (Late st Contact Info) Description 12/20/2019 [place] [phone] Komal Chan Social History Tobacco Use Types Packs/Day Years [...] encounter Miscellaneous Notes * Telephone Encounter - Komal Chan - 01/08/2020 4:44 PM EST Called pt to schedule = scheduled for next available pm appt per pt request Pt uses [facility] * Telephone Encounter - Donna Tovar - 01/03/2020 12:[address] imaging in [facility]. Left message for patient to call back to schedule with TCR. * Telephone Encounter - Donna Tovar - 12/26/2019 4:01 PM EST Spoke with [facility] radiology, patient is not scheduled, but they have reached out twice with no returncall. Called patient to follow up on scheduling CT scan. He advised he hasn't scheduled, but will call now. Asked that he call back to let us know date of imaging and can then schedule consult with TCR. * Telephone Encounter - Donna Tovar - 12/20/2019 12:18 PM EDT Per [facility] website, PA not required due to pandemic. Faxed order to [facility] via eD. Postponing to allow time for scheduling. * Telephone Encounter - Komal Chan - 12/20/2019 8:54 AM EDT Patient needs f/u appointment(s): With TCR on/around after imaging after imaging CON, s/p Thoracic disc herniation, CT T-spine-[facility] prior ~~~~~~~~~~~~~~~~~~~~~~~~~~~~~~~~~~~~~~~~~~~~~~~~~~~~~~~~~~ Dannie Sorto PA Sent: Serina December 19, 2019 10:02 PM To: Amos Hanson MD; P [facility] [employer] ?? Follow-up and Dispositions Check-out Note: 1) CT thoracic spine in [facility] 2) FU w/ TCR after documented in this encounter Plan of Treatment Upcoming Encounters Date Type Department Care Team (Late st Contact Info) Description 01/19/2024 1:00 PM EST Office Visit Urology at [facility] [address] [place] [phone] Desean Coronado MD [facility] [place] [address] 01/22/2024 12:30 PM EST Office Visit Neurosurgery at [facility] 10 [place] [address] Hema Escalante MD [address] [place] [address] Liudmila Oates PA [address] [place] [address] 02/01/2024 12:00 PM EST [place] [phone] Georgette Monae PA [facility] [place] [address] 05/30/2024 10:30 AM EDT [place] [phone] documented as of this encounter Visit Diagnoses Not on filedocumented in this encounter Care Teams Lockstitch Waistline Joiner Relationship Specialty Start Date End Date Rodriguez Roberts MD [address] [place] [address] PCP - General 11/15/13 02/09/21 documented as of this encounter
--- OUTSIDE RECORDS SUMMARY | 2024-01-15 20:03 | XMS_ITS | Encounter Summary ---
[place] [address] Care Team Providers Care Senior Relationship Manager Name Role Phone Rodriguez Roberts MD Primary Care Provider [phone] Encounter Details Date Type Department Care Team (Latest Contact Info) Description 12/11/2019 3:30 PM EDT TH Visit (TeleHealth) [place] [address] Erick York III, MD [facility] [place] [address] Multiple sclerosis; Thoracic spinal stenosis Social History Tobacco Use Types Packs/Day Years [...] Notes * Erick York III, MD - 12/11/2019 3:30 PM EDT [facility] Telemedicine Follow-Up Visit (home) Dear Rodriguez Roberts MD, I saw Erick Chacon today in follow-up for multiple via telemedicine. Erick Chacon was unaccompanied at today's visit. Below is my progress note with impression and plan. Please do not hesitate to call with any questions. Appointment time: 3:36-3:58 (total 22 minutes) DISEASE SUMMARY: Principal neurologic diagnosis: MS Onset: 2018 Diagnosis of MS: 03/2018 CSF: 13 OCBs, normal IgG index, normal cell# and protein Disease course at onset: relapsing Current disease course: relapsing Relapses: 2019 - bilateral leg, R arm and neck numbness Treatment History Previous disease therapies: none Current disease therapies: Tecfidera (May 2018) Imaging History Most recent MRI brain: 11/11/2019 Most recent MRI cervical spine: 11/16/2019 Most recent MRI thoracic spine: 11/16/2019 Interval History: Erick Chacon was last seen in clinic on 11/11/2019. At that time he did not report any new neurological symptoms concerning for MS relapse since his last appointment in October 2018. He continued to have difficulty with walking due to leg fatigue as well as imbalance. He noted significant difficulty with adherence to Tecfidera. Repeat MRI scan of his brain not clearly show any new lesion, question of a possible new right cerebellar lesion though this could be artifact as well. Neuroradiology did not think there were any new lesions. Due to his continued difficulty with walking I ordered an MRI scan of his cervical and thoracic spine due to his known thoracic spinal canal stenosis. Today, Erick denies any new neurological symptoms. Overall he feels his symptoms are relatively similar compared to 1 month ago. He continues to have midthoracic neuropathic pain that is worse when he lies on either side. He is currently taking baclofen 10 mg the morning, 10 mg in the afternoon and 15 to 20 mg at night and gabapentin 200 mg 3 times daily. He reports improved adherence to Tecfidera without missed doses. Flushing side effect has improved with taking pills following eating peanut butter. He has questions about his MRI scan of his brain and spine which we reviewed. Current Medications: reviewed and updated in EMR Physical Examination VS were not able to be obtained due to patient location. He was alert and oriented to person, place, and time with normal language, attention and concentration, recent and remote memory, praxis, and intellectual function. Mood was euthymic. Affect was congruent. REVIEW OF IMAGING STUDIES: I reviewed the following studies: MRI cervical and thoracic spine: without and with contrast Date: 11/16/2019 Cervical spine: Disc spaces and vertebral body heights are well-maintained. 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 ?? No significant spinal canal narrowing. ?? Several sites of signal alteration within the cervical cord most prominent at C5-C6 similar compared to prior examination. None of these sites enhance. ?? Thoracic spine: Alignment is near anatomic. Disc spaces and vertebral body heights are well-maintained. The previously identified signal alteration within the right side of the cord at T9-T10 is not well visualized on the current study. No new sites of thoracic spinal cord signal alteration. Stability of the right paracentral disc extrusion at T8-T9 that results in focal moderate spinal canal narrowing. Otherwise the spinal canal is patent. No new disc herniations. ?? Stability of a nonenhancing right hilar T2 hyperintense structure measuring about 3.8 cm in size. The etiology for this is uncertain. ?? IMPRESSION No evidence for progression of the demyelination within the cervical or thoracic spinal cord. ?? 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 ?? Stability of a 3.8 cm T2 hyperintense structure within the right hilum going back to 2015. Assessment: ICD-10-CM 1. Multiple sclerosis G35 2. Thoracic spinal stenosis M48.04 Erick Chacon is a 34 y.o. man with relapsing multiple sclerosis without activity on Tecfidera. He also has moderate spinal canal stenosis at T9-T10 secondary to bulging vertebral disc. This maybe contributing to his walking difficulties. He has been referred to neurosurgery and has appointment on 12/18/2019. He had questions about the Chiari malformation that has been noted on prior MRI scans. I do not think that this has changed over time and that reported differences are related to measurement techniques. There is no evidence of crowding of the foramen magnum or clinical or radiographic sequelae of a symptomatic Chiari malformation. Treatment Plan: 1. Continue on Tecfidera 240 mg 2 times daily 2. Continue on baclofen: 10 mg, 10 mg 15 to 20 mg 3. Increase gabapentin from 200 mg 3 times daily to 200 mg in the morning, 200 mg in the afternoon and 400 mg at night Follow-up: 4 months Thank you for allowing us to participate [facility]. If you have questions or concerns please do not hesitate to call our clinic at [phone]. Erick York III, MD [facility] Department of Neurology [facility] of Medicine [address] [place] [address] F More than 50% of this 22 minute telemedicine appointment was spent in counseling on diagnosis, prognosis, and medication and symptom management. 4:14 PM 12/11/2019 documented in this encounter Plan of Treatment Upcoming Encounters Date Type Department Care Team (Late st Contact Info) Description 01/19/2024 1:00 PM EST Office Visit Urology at [facility] [address] [place] [phone] Desean Coronado MD [facility] [place] [address] 01/22/2024 12:30 PM EST Office Visit Neurosurgery at [facility] 10 [place] [address] Hema Escalante MD [address] [facility] [place] [address] Liudmila Oates PA [address] [facility] [place] [address] 02/01/2024 12:00 PM EST Office [place] [phone] Georgette Monae PA [facility] [place] [address] 05/30/2024 10:30 AM EDT Appointment [place] [phone] documented as of this encounter Visit Diagnoses Diagnosis Multiple sclerosis Thoracic spinal stenosis Spinal stenosis of thoracic region documented in this encounter Care Teams Senior Relationship Manager Relationship Specialty Start Date End Date Rodriguez Roberts MD [address] [place] [address] PCP - General 11/15/13 02/09/21 documented as of this encounter
--- OUTSIDE RECORDS SUMMARY | 2024-01-15 20:03 | XMS_ITS | Encounter Summary ---
Author Organization [facility] Address [facility] [place] [place] [address] Care Team Providers Care Feedlot Manager Name Role Phone Rodriguez Roberts MD Primary Care Provider [phone] Reason for Visit * Reason Comments Medication Management Patient Education Encounter Details Date Type Department Care Team (Late st Contact Info) Description 04/29/2020 Specialty [place] [phone] Josef Zabala Adrianne Social History Tobacco Use Types Packs/Day [...] as of this encounter Progress Notes * Josef Zabala RPH - 04/29/2020 2:00 PM EST Clinical Management Plan: Refill Specialty Pharmacy Consultation; Josef Zabala Adrianne Comprehensive Medication Management (CMM) Erick Chacon Mr. Erick Chacon is a 34 y.o. (1985) male who was contacted in regard to a specialty medication refill reminder. Spoke with patient regarding tecfidera. A review of the medication therapy was performed. The medication was Refilled as scheduled, and all medication related questions and concerns were addressed. The specialty pharmacy staff will follow up with the patient 5-7 days prior to next refill. Was a change made to the Care Plan: no If yes, should the medication be held: No Assessment and Recommendations: Title Type of Medication Management: chronic disease management, comprehensive medication review, targeted medication review Referred By: provider Recipient: beneficiary Provider: plan sponsor pharmacist Visit Type: [facility] Follow-up Method of Contact: by telephone Cognitive Ability: good Cognitive Impairment Status Verified this Year: no Allergies and Drug intolerance: No Known Allergies Medication Reconciliation Discrepancies (compared to [facility] med list) -none New medications: no New medical conditions: no New allergies: no Adherence: Medication Adherence Patient reported X missed doses in the last month: 0 Any gaps in refill history greater than 2 weeks in the last 3 months: no Demonstrates understanding of importance of adherence: yes Informant: patient Reliability of informant: reliable Provider-estimated medication adherence level: 90-100% Reasons for non-adherence: no problems identified Adherence tools used: alarm Support network for adherence: family member Confirmed plan for next specialty medication refill: delivery by pharmacy Refills needed for supportive medications: not needed Are you experiencing any side effects from your medications? no Pt understands no changes to current drug regimen were made at the appointment and that [facility] is providing recommendations (summary located at top of note) for provider review and follow up. Josef Zabala RPH 04/29/20 2:02 PM documented in this encounter Plan of Treatment Upcoming Encounters Date Type Department Care Team (Late st Contact Info) Description 01/19/2024 1:00 PM EST Office Visit Urology at [facility] [address] [place] [phone] Desean Coronado MD [facility] [place] [address] 01/22/2024 12:30 PM EST Office Visit Neurosurgery at [facility] 10 [place] [address] Hema Escalante MD [facility] [place] [address] [place] [address] 02/01/2024 12:00 PM EST [place] [address] Georgette Monae PA [facility] [place] [place] [address] 05/30/2024 10:30 AM EDT [place] [phone] documented as of this encounter Visit Diagnoses Not on filedocumented in this encounter Care Teams Feedlot Manager Relationship Specialty Start Date End Date Rordiguez Roberts MD [address] [place] [address] PCP - General 11/15/13 02/09/21 documented as of this encounter
--- OUTSIDE RECORDS SUMMARY | 2024-01-15 20:03 | XMS_ITS | Encounter Summary ---
Author Organization [facility] [address] Care Team Providers Care Ethylene Plant Helper Name Role Phone Rodriguez Roberts MD Primary Care Provider Encounter Details Date Type Department Care Team (Late st Contact Info) Description 02/25/2020 Specialty [place] [address] Octavio Yanes [facility] Social History Tobacco Use Types Packs/Day Years [...] as of this encounter Progress Notes * Octavio Yanes [facility] - 02/25/2020 10:40 AM EST Clinical Management Plan: Transfer of Care/Discharge Specialty Services Specialty Pharmacy Consultation; Octavio Yanes [facility] Comprehensive Medication Management (CMM) Erick Chacon [address] [address] Telephone Information: Work Phone Not on file. Is the patient transferring services to a different Specialty Pharmacy or discontinuing the medication? Discontinuing services Medication: Tecfidera Reason for discontinuation or transfer: unable to reach patient after multiple attempts since 01/06/2020 Approximate date of discontinuation or transfer: 01/06/2020 Patient's response to therapy: unknown, non-adherent Summary of services provided by D- Specialty: benefits investigation, one time fill Summary of on-going needs: Follow up with patient, if patient is interested in taking therapy must return communication on a monthly basis to authorize refills Referral for additional services (if applicable): no Is patient aware of referral? no Instructions provided to patient about discharge/transfer: no Provider aware of discontinuation or transfer: yes Patient understands no changes to current drug regimen were made at the appointment and that [facility] isproviding recommendations (summary located at top of note) for provider review and follow up. Octavio Yanes RPH 02/25/20 10:41 AM * Octavio Yanes RPH - 02/25/2020 10:40 AM EST Patient enrolled on 03/06 after calling pharmacy for refill documented in this encounter Plan of Treatment Upcoming Encounters Date Type Department Care Team (Late st Contact Info) Description 01/19/2024 1:00 PM EST Office Visit Urology at [facility] [address] [place] [phone] Desean Coronado MD [facility] [place] [address] 01/22/2024 12:30 PM EST Office Visit Neurosurgery at [facility] [address] [place] [phone] Hema Escalante MD [address] [place] [address] Liudmila Oates PA 10 [facility] [place] [address] 02/01/2024 12:00 PM EST [place] [phone] Georgette Monae PA [facility] [place] [address] 05/30/2024 10:30 AM EDT [place] [phone] documented as of this encounter Visit Diagnoses Not on filedocumented in this encounter Care Teams Ethylene Plant Helper Relationship Specialty Start Date End Date Rodriguez Roberts MD [address] [place] [address] PCP - General 11/15/13 02/09/21 documented as of this encounter
--- OUTSIDE RECORDS SUMMARY | 2024-01-15 20:03 | XMS_ITS | Encounter Summary ---
[facility] Organization [facility] [place] [address] Care Team Providers Care Software Development Specialist Name Role Phone Lamont Owusu MD Primary Care Provider [phone] Reason for Visit * Reason Onset Date Comments Medication Refill 02/23/2022 Encounter Details Date Type Department Care Team (Late st Contact Info) Description 02/23/2022 [place] [address] Erick Flowers MD [facility] DR NEUROLOG[place] [address] Multiple sclerosis Social History Tobacco Use Types [...] encounter Miscellaneous Notes * Telephone Encounter - Lisa Choudhury RN - 02/24/2022 2:00 PM EST Surescript request for : Baclofen Last rx: 09/02/21 Quantity: 180 Refills: 1 From last note: Last appt: 02/03/21 Next appt: Needs a follow up. Message sent to division head documented in this encounter Plan of Treatment Upcoming Encounters Date Type Department Care Team (Late st Contact Info) Description 01/19/2024 1:00 PM EST Office Visit Urology at [facility] [address] [place] [phone] Desean Coronado MD [facility] [place] [address] 01/22/2024 12:30 PM EST Office Visit Neurosurgery at [facility] 10 [place] [address] Hema Escalante MD [address] [facility] [address] [place] [address] Liudmila Oates PA [address] [facility] [address] [place] [address] 02/01/2024 12:00 PM EST Office [place] [phone] Georgette Monae PA [facility] [address] [place]OLOG[place] [address] 05/30/2024 10:30 AM EDT Appointment [place] [phone] documented as of this encounter Goals Goal Patient Goal Type Associated Problems Recent Progress Patient-Stated? Author prevention of MS relapse Patient Facing Action Plan Dionicio Almeida, [facility] documented as of this encounter Visit Diagnoses Diagnosis Multiple sclerosis documented in this encounter Care Teams Software Development Specialist Relationship Specialty Start Date End Date Lamont Owusu MD [address] [facility] [address] [place] [address] PCP - General Family Medicine 02/10/21 documented as of this encounter
--- OUTSIDE RECORDS SUMMARY | 2024-01-15 20:03 | XMS_ITS | Encounter Summary ---
Author Organization [facility] [place] [address] Care Team Providers Care Energy Management Specialist Name Role Phone Lamont Owusu MD Primary Care Provider [phone] Reason for Visit * Reason Comments Patient Education Encounter Details Date Type Department Care Team (Late st Contact Info) Description 10/14/2021 Specialty [place] [phone] Dionicio Doherty [facility] Social History Tobacco Use Types [...] Progress Notes * Dionicio Doherty RPH - 10/14/2021 11:24 AM EDT Specialty Pharmacy Consultation; Dionicio Doherty RPH Comprehensive Medication Management (CMM): Specialty Consult, Opt Out Erick Narvaezbrigida Diagnosis: MS ?? Current Therapy Start Date: 02/2021 ?? MS Diagnosis date (mm/yy): 03/2018 ?? Prior MS therapy: Tecfidera Duration of therapy: 2.5 years Reason for discontinuation: side effects Mr. Erick Chacon is a 35 y.o. (1985) male who was contacted in regard to specialty medication. Spoke with patient regarding Vumerity. A review of the medication therapy was performed. The medication was refilled as scheduled, and all medication related questions and concerns were addressed. The specialty pharmacy staff will follow up with the patient 7-10 days prior to next refill. Is the patient willing to proceed with the Clinical Assessment? No Summary and Recommendations: Patient responded to refill reminder, but has not responded to any consult outreach attempts. Economic Assessment: Patient is agreeable to medication copay: Yes Copay Amount: $3 Day Supply: 30 Date Needed: 10/11/21 Therapy Assessment: Appropriate Therapy: Yes Current Medication Dosing/Route/Frequency: Vumerity 462 mg po BID Additional equipment/supplies required: no Care Plan Reviewed and Approved by Pharmacist : Yes Problem List: Patient Active Problem List Diagnosis Code ??? Left lumbar radiculopathy M54.16 ??? Right lumbar radiculopathy M54.16 ??? Lower back pain M54.50 ??? 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 Abnormal MRI, spinal cord R90.89 ??? Multiple sclerosis G35 ??? Abnormal brain MRI R90.89 ??? Sensory impairment R44.8 ??? Lhermitte's sign positive R29.818 ??? Gait instability R26.81 ??? Thoracic disc herniation M51.24 Medications Reviewed: Yes Medications reconciled: No Allergies Reviewed:Yes Allergies reconciled: No Pharmacist follow-up needed: Yes Informed patient of specialty pharmacy services: Yes -Patient will be provided with welcome packet: Yes Date to be provided: 12/13/2019 Delivery Method: mail -Patient returned signed Rights & Responsibilities: No Date to be provided: 12/13/2019 Delivery Method: mail -Patient is aware a licensed pharmacist is available 24 hours a day, 7 days a week to discuss medication-related questions or concerns: Yes -Patient verbalizes understanding of the common side effect profile of their medication. The patient is able to call 911 or seek urgent care if signs/symptoms of allergy or harmful adverse reactions occur: Yes Patient understands no changes to current drug regimen were made at the appointment and that the pharmacist is providing recommendations (summary located at top of note) for provider review and follow up. Dionicio Doherty [facility] 10/14/21 11:31 AM documented in this encounter Plan of Treatment Upcoming Encounters Date Type Department Care Team (Late st Contact Info) Description 01/19/2024 1:00 PM EST Office Visit Urology at [address] [address] Desean Coronado MD [facility] [place] [address] 01/22/2024 12:30 PM EST Office Visit Neurosurgery at [facility] 10 [place] [phone] Hema Escalante MD 10 [facility] [place] [address] Liudmila Oates PA 10 [facility] [place] [address] 02/01/2024 12:00 PM EST [place] [phone] Georgette Monae PA [facility] [place] [address] 05/30/2024 10:30 AM EDT [place] [phone] documented as of this encounter Goals Goal Patient Goal Type Associated Problems Recent Progress Patient-Stated? Author prevention of MS relapse Patient Facing Action Plan No Dinoicio Doherty [facility] documented as of this encounter Visit Diagnoses Not on filedocumented in this encounter Care Teams Energy Management Specialist Relationship Specialty Start Date End Date Lamont Owusu MD [address] [place] [address] [address] PCP - General Family Medicine 02/10/21 documented as of this encounter
--- OUTSIDE RECORDS SUMMARY | 2024-01-15 20:03 | XMS_ITS | Encounter Summary ---
[place] [address] Care Team Providers Care Assembly Line Robot Operator Name Role Phone Rodriguez Roberts MD Primary Care Provider [phone] Reason for Visit * Reason Comments Medication Management Encounter Details Date Type Department Care Team (Late st Contact Info) Description 01/21/2021 Specialty [place] [phone] Dionicio Doherty [facility] Social History Tobacco Use Types Packs/Day Years [...] this encounter Progress Notes * Dionicio Doherty [facility] - 01/21/2021 10:48 AM EST Clinical Management Plan: Transfer of Care/Discharge Specialty Services Specialty Pharmacy Consultation; Dionicio Doherty [facility] Comprehensive Medication Management (CMM) Erick Chacon [address] [facility] [address] Telephone Information: Work Phone Not on file. Is the patient transferring services to a different Specialty Pharmacy or discontinuing the medication? Discontinuing Services Medication: Tecfidera Reason for discontinuation or transfer: Unable to reach patient Approximate date of discontinuation or transfer: 01/21/2021 Patient's response to therapy: n/a Summary of services provided by D- Specialty: New start consult, benefits investigation, refill reminders, follow-up consults Summary of on-going needs: Please call clinic or pharmacy to continue Referral for additional services (if applicable): n/a Is patient aware of referral? no Instructions provided to patient about discharge/transfer: no Provider aware of discontinuation or transfer: Yes Patient understands no changes to current drug regimen were made at the appointment and that [facility] isproviding recommendations (summary located at top of note) for provider review and follow up. Dionicio Doherty RPH 01/21/21 10:49 AM documented in this encounter Plan of Treatment Upcoming Encounters Date Type Department Care Team (Late st Contact Info) Description 01/19/2024 1:00 PM EST Office Visit Urology at [facility] [address] [place] [phone] Desean Coronado MD [facility] [place] [address] 01/22/2024 12:30 PM EST Office Visit Neurosurgery at [facility] 10 [place] [address] Hema Escalante MD 10 [facility] [place] [address] Liudmila Oates PA 10 [facility] [place] [address] 02/01/2024 12:00 PM EST Office [place] [address] Georgette Monae PA [facility] [place] [address] 05/30/2024 10:30 AM EDT [place]oint[place] [address] documented as of this encounter Visit Diagnoses Not on filedocumented in this encounter Care Teams Assembly Line Robot Operator Relationship Specialty Start Date End Date Rodriguez Roberts MD [address] [place] [address] PCP - General 11/15/13 02/09/21 documented as of this encounter
--- OUTSIDE RECORDS SUMMARY | 2024-01-15 20:03 | XMS_ITS | Encounter Summary ---
Author Organization [facility] [place] [place] [address] Care Team Providers Care Paper Deliverer Name Role Phone Lamont Owusu MD Primary Care Provider [phone] Reason for Visit * Reason Comments Prior Authorization Vumerity 231MG CPDR Encounter Details Date Type Department Care Team (Late st Contact Info) Description 02/03/2021 Specialty [place] [phone] Kayce Ramos, ENVIRONMENTAL PLANNER Social History Tobacco Use Types Packs/Day Years [...] as of this encounter Progress Notes * Kayce Ramos - 02/03/2021 3:26 PM EST [facility], Medication Prior Authorization Submission Patient: dAa Chacon Patient : 1985 Patient Address: [address] [place] [address] [address] [facility] [address] (home) Medication Name: VUMERITY 231 MG CAPSULE,DELAYED RELEASE Medication ID: [id number] Subscriber Insurance: [place] Subscriber Insurance Comment: Fax: Physician: ADA ZAVALA III Physician Comment: Sent Via: Fax Zarate: Ref/Case/PA#: [id number] Medication Strength Frequency Requested: Vumerity 231MG capsules. Take 231 mg by mouth 2 times daily for 7 days. Then increase to 462 mg (2 capsules) twice a day thereafter Qty/Day Supply: New Start: New to Therapy Diagnosis & ICD-10 Code: Multiple sclerosis G35 Patient Notified: No Submission Notes: None Kayce Ramos 02/03/21 3:33 PM * Kayce Ramos - 02/03/2021 3:26 PM EST [facility], Prior Authorization Approval Medication Name: VUMERITY 231 MG CAPSULE,DELAYED RELEASE Medication ID: [id number] Approval Dates: 02/09/2021 to 05/10/2021 Insurance requirements/notes: None Other Notes: None Case/Reference #: [id number] Approval notification Received via: Telephone Copay: $3.00 Copay assistance: None Copay Notes: Insurance mandated Pharmacy: Fillable at [facility]: Yes Pharmacy staff will be reaching out to the patient to inform them of their medication's approval by[employer] health insurance. If applicable, a pharmacist will speak with the patient to offer our specialty pharmacy services and to arrange delivery of their medication. Kayce Ramos 02/10/21 9:44 AM documented in this encounter Plan of Treatment Upcoming Encounters Date Type Department Care Team (Late st Contact Info) Description 01/19/2024 1:00 PM EST Office Visit Urology at [facility] [address] [place] [phone] Desean Coronado MD [facility] [place] [address] 01/22/2024 12:30 PM EST Office Visit Neurosurgery at [facility] 10 [place] [address] Hema Escalante MD [address] [facility] [place] [address] Liudmila Oates PA 10 [facility] [place] [address] 02/01/2024 12:00 PM EST [place] [address] Georgette Monae PA [facility] [place] [address] 05/30/2024 10:30 AM EDT [place] [phone] documented as of this encounter Goals Goal Patient Goal Type Associated Problems Recent Progress Patient-Stated? Author prevention of MS relapse Patient Facing Action Plan Dionicio Almeida, [facility] documented as of this encounter Visit Diagnoses Not on filedocumented in this encounter Care Teams Paper Deliverer Relationship Specialty Start Date End Date Lamont Owusu MD [address] [place] [address] [address] [facility] 1 [place] [address] PCP - General Family Medicine 02/10/21 documented as of this encounter
--- OUTSIDE RECORDS SUMMARY | 2024-01-15 20:03 | XMS_ITS | Encounter Summary ---
Author Organization [facility] Address [facility] [place] [place] [address] Care Team Providers Care Research Interviewer Name Role Phone Rodriguez Roberts MD Primary Care Provider [phone] Reason for Visit * Reason Comments Medication Management Patient Education Encounter Details Date Type Department Care Team (Late st Contact Info) Description 03/06/2020 Specialty Pharm[place] [phone] Dionicio Hsu [facility] Social History Tobacco Use Types Packs/Day Years [...] of this encounter Progress Notes * Dionicio Hsu [facility] - 03/06/2020 3:42 PM EST Clinical Management Plan: Refill Specialty Pharmacy Consultation; Dionicio Hsu [facility] Comprehensive Medication Management (CMM) Erick Marylu Ines Mr. Erick Chacon is a 34 y.o. (1985) male who was contacted in regard to a specialty medication refill reminder. Spoke with patient regarding TECFIDERA. A review of the medication therapy was performed. The medication was Refilled as scheduled, and all medication related questions and concerns were addressed. The specialty pharmacy staff will follow up with the patient 5-7 days prior to next refill. Was a change made to the Care Plan: no Assessment and Recommendations: Title Type of Medication Management: chronic disease management, targeted medication review Referred By: pharmacist Recipient: beneficiary Provider: plan sponsor pharmacist Visit Type: [facility] Follow-up Method of Contact: by telephone Cognitive Ability: good Cognitive Impairment Status Verified this Year: no Allergies and Drug intolerance: No Known Allergies Medication Reconciliation Discrepancies (compared to [facility] med list) -None New medications: no New medical conditions: no New allergies: no Adherence: Medication Adherence Patient reported X missed doses in the last month: 0 Any gaps in refill history greater than 2 weeks in the last 3 months: no Demonstrates understanding of importance of adherence: yes Informant: patient Reliability of informant: reliable Provider-estimated medication adherence level: good Reasons for non-adherence: no problems identified Adherence tools used: alarm Support network for adherence: family member Are you experiencing any side effects from your medications? no Pt understands no changes to current drug regimen were made at the appointment and that [facility] is providing recommendations (summary located at top of note) for provider review and follow up. Dionicio Hsu [facility] 03/06/20 3:43 PM documented in this encounter Plan of Treatment Upcoming Encounters Date Type Department Care Team (Late st Contact Info) Description 01/19/2024 1:00 PM EST Office Visit Urology at [facility] [address] [place] [phone] Desean Coronado MD [facility] [place] [address] 01/22/2024 12:30 PM EST Office Visit Neurosurgery at [facility] [place] [phone] Hema Escalante MD [address] [place] [address] Liudmila Oates PA 10 [facility] [place] [address] 02/01/2024 12:00 PM EST Office [place] [phone] Georgette Monae PA [facility] [place] [address] 05/30/2024 10:30 AM EDT Appointment [place] [address] documented as of this encounter Visit Diagnoses Not on filedocumented in this encounter Care Teams Research Interviewer Relationship Specialty Start Date End Date Rodriguez Roberts MD [address] [place] [address] PCP - General 11/15/13 02/09/21 documented as of this encounter
--- OUTSIDE RECORDS SUMMARY | 2024-01-15 20:03 | XMS_ITS | Encounter Summary ---
Author Organization [facility] Address [facility] [place] [address] Care Team Providers Care Wire Weaver Name Role Phone Rodriguez Roberts MD Primary Care Provider [phone] Reason for Visit * Reason Onset Date Comments Other 12/26/2019 Encounter Details Date Type Department Care Team (Late st Contact Info) Description 12/26/2019 [place] [phone] Erick York III, MD [facility] [place] [address] Other Social History Tobacco Use Types Packs/Day [...] encounter Miscellaneous Notes * Telephone Encounter - Angeline Goodwin - 12/26/2019 4:14 PM EST Call Center / Senior Accounting Analyst Message - General Issue Call Provider patient sees in Clinic: Analilia Caller and relationship (if other than patient-full name): self Call back number: [phone] Ok to leave a message: y Reason for call: Pt states he has a CT appt on 12/30/19 at [facility] and would like to make Dr. York aware of this please. Disposition of Call (choose one and remove others): ??? Red Arrow Message Reason red arrow Message: n ??? Routine Message sent to the Nurse: y ??? Routine message sent to Senior Accounting Analyst: n documented in this encounter Plan of Treatment Upcoming Encounters Date Type Department Care Team (Late st Contact Info) Description 01/19/2024 1:00 PM EST Office Visit Urology at [facility] [address] [place] [phone] Desean Coronado MD [facility] [place] [address] 01/22/2024 12:30 PM EST Office Visit Neurosurgery at [facility] 10 [place] [address] Hema Escalante MD 10 [facility] [address] Liudmila Oates PA 10 [facility] [address] 02/01/2024 12:00 PM EST [place] [phone] Georgette Monae PA [facility] [place] [address] 05/30/2024 10:30 AM EDT [place] [phone] documented as of this encounter Visit Diagnoses Not on filedocumented in this encounter Care Teams Wire Weaver Relationship Specialty Start Date End Date Rodriguez Roberts MD [address] [place] [address] [address] [place] [address] PCP - General 11/15/13 02/09/21 documented as of this encounter
--- OUTSIDE RECORDS SUMMARY | 2024-01-15 20:03 | XMS_ITS | Encounter Summary ---
Author Organization [facility] [place] [address] Care Team Providers Care Burial Vault Deliverer And Installer Name Role Phone Lamont Owusu MD Primary Care Provider [phone] Reason for Visit * Reason Comments Prior Authorization Vumerity 231mg CPDR Encounter Details Date Type Department Care Team (Late st Contact Info) Description 05/17/2021 Specialty [place] [phone] Tyler Shah, DIRECTOR AUDIENCE MARKETING Social History Tobacco Use Types Packs/Day Years [...] encounter Progress Notes * Tyler Shah - 05/17/2021 2:15 PM EDT [facility], Medication Prior Authorization Submission Patient: Ada Chacon Patient : 1985 Patient Address: [address] [place] [address] [facility] [address] (home) Medication Name: VUMERITY 231 MG CAPSULE,DELAYED RELEASE Medication ID: [id number] Subscriber Insurance: [place] Subscriber Insurance Comment: Phone: Fax: Physician: ADA ZAVALA III Physician Comment: Sent Via: Fax Zarate: Ref/Case/PA#: Medication Strength Frequency Requested: Vumerity 231mg CPDR Take 2 capsules by mouth 2 times daily. Qty/Day Supply: 120/30 New Start: Renewal Diagnosis & ICD-10 Code: Multiple sclerosis [G35] Patient Notified: No Submission Notes: None Tyelr Shah 05/17/21 2:19 PM * Kayce Ramos - 05/17/2021 2:15 PM EDT [facility], Prior Authorization Approval Medication Name: VUMERITY 231 MG CAPSULE,DELAYED RELEASE Medication ID: [id number] Approval Dates: 05/17/2021 to 05/17/2022 Insurance requirements/notes: None Other Notes: None Case/Reference #: [id number] Approval notification Received via: Fax Copay: $ 3.00 Copay assistance: None Copay Notes: Insurance mandated Pharmacy: Fillable at [facility]: Yes Pharmacy staff will be reaching out to the patient to inform them of their medication[facility]. If applicable, a pharmacist will speak with the patient to offer our specialty pharmacy services and to arrange delivery of their medication. Kayce Ramos 05/18/21 9:05 AM documented in this encounter Plan of Treatment Upcoming Encounters Date Type Department Care Team (Late st Contact Info) Description 01/19/2024 1:00 PM EST Office Visit Urology at [place] [address] [place] [phone] Desean Coronado MD [facility] [place] [address] 01/22/2024 12:30 PM EST Office Visit Neurosurgery at [facility] [address] [place] [address] Hema Escalante MD [address] [facility] [place] [address] Liudmila Oates PA [address] [facility] [place] [address] 02/01/2024 12:00 PM EST Office [place] [phone] Georgette Monae PA [facility] [place] [address] 05/30/2024 10:30 AM EDT [place]oint[place] [phone] documented as of this encounter Goals Goal Patient Goal Type Associated Problems Recent Progress Patient-Stated? Author prevention of MS relapse Patient Facing Action Plan Dionicio Almeida, [facility] documented as of this encounter Visit Diagnoses Not on filedocumented in this encounter Care Teams Burial Vault Deliverer And Installer Relationship Specialty Start Date End Date Lamont Ouwsu MD [address] [place] [address] [address] [place] [address] PCP - General Family Medicine 02/10/21 documented as of this encounter
--- OUTSIDE RECORDS SUMMARY | 2024-01-15 20:03 | XMS_ITS | Encounter Summary ---
Author Organization [facility] [place] [address] Care Team Providers Care Toddler Lead Teacher Name Role Phone Lamont Owusu MD Primary Care Provider [phone] Reason for Visit * Reason Comments Patient Education Encounter Details Date Type Department Care Team (Late st Contact Info) Description 04/01/2021 Specialty [place] [phone] Dionicio Doherty [facility] Social History Tobacco Use Types Packs/Day [...] Progress Notes * Dionicio Doherty RPH - 04/01/2021 2:55 PM EST Specialty Pharmacy Consultation; Dionicio Doherty RPH Comprehensive Medication Management (CMM): Specialty Consult, Opt Out Erick R Ines Diagnosis: MS Current Therapy Start Date: 02/2021 MS Diagnosis date (mm/yy): 03/2018 Prior MS therapy: Tecfidera Duration of therapy: 2.5 years Reason for discontinuation: side effects Contact in person or via telephone:[facility] Mr. Erick Chacon is a 35 y.o. [...] Amount: $3 Day Supply: 30 Date Needed: 03/29/2021 Therapy Assessment: Appropriate Therapy: Yes Current Medication Dosing/Route/Frequency: Vumerity 231 mg, Take 2 caps BID Additional equipment/supplies required: no Care Plan [...] welcome packet: Yes Date to be provided: 12/13/19 Delivery Method: mail -Patient returned signed Rights & Responsibilities: Yes Date to be provided: 12/13/2019 Delivery [...] provider review and follow up. Dionicio Doherty [facility] 04/01/21 2:55 PM documented in this encounter Plan of Treatment Upcoming Encounters Date Type Department Care Team (Late st Contact Info) Description 01/19/2024 1:00 PM EST Office Visit Urology at [address] [phone] Desean Coronado MD [facility] [place] [address] 01/22/2024 12:30 PM EST Office Visit Neurosurgery at [facility] [address] [place] [phone] Hema Escalante MD [address] [facility] [place] [address] Liudmila Oates PA [address] [facility] [place] [address] 02/01/2024 12:00 PM EST Office [place] [phone] Georgette Monae PA [facility] [place] [address] 05/30/2024 10:30 AM EDT Appointment [place] [phone] documented as of this encounter Goals Goal Patient Goal Type Associated Problems Recent Progress Patient-Stated? Author prevention of MS relapse Patient Facing Action Plan No Dionicio Doherty Adrianne documented as of this encounter Visit Diagnoses Not on filedocumented in this encounter Care Teams Toddler Lead Teacher Relationship Specialty Start Date End Date Lamont Owusu MD [address] [place] [address] [address] [place] [address] PCP - General Family Medicine 02/10/21 documented as of this encounter
--- OUTSIDE RECORDS SUMMARY | 2024-01-15 20:03 | XMS_ITS | Encounter Summary ---
Author Organization [facility] Address [facility] Melinda mitchиван [place] [address] Care Team Providers Care Industrial Roof Plumber Name Role Phone Rodriguez Roberts MD Primary Care Provider [phone] Encounter Details Date Type Department Care Team (Late st Contact Info) Description 02/03/2021 [place] [address] Erick York III, MD [facility] [place] [address] Social History Tobacco Use Types Packs/Day Years [...] 1:00 PM EST Office Visit Urology at [facility] [address] [place] [phone] Desean Coronado MD [facility] [place] [address] 01/22/2024 12:30 PM EST Office Visit Neurosurgery at [facility] [place] [address] Hema Escalante MD [address] [place] [address] Liudmila Oates PA [facility] [address] 02/01/2024 12:00 PM EST Office [place] [address] Georgette Monae PA [facility] [place] [address] 05/30/2024 10:30 AM EDT [place]ointment [place] [phone] documented as of this encounter Visit Diagnoses Not on filedocumented in this encounter Care Teams Industrial Roof Plumber Relationship Specialty Start Date End Date Rodriguez Roberts MD [address] [place] [address] PCP - General 11/15/13 02/09/21 documented as of this encounter
--- OUTSIDE RECORDS SUMMARY | 2024-01-15 20:03 | XMS_ITS | Encounter Summary ---
Author Organization [facility] Address [facility] [place] [address] Care Team Providers Care Shore Worker Name Role Phone Lamont Owusu MD Primary Care Provider [phone] Reason for Visit * Reason Comments Medication Refill Encounter Details Date Type Department Care Team (Late st Contact Info) Description 10/06/2020 Ref[place] [address] Erick York III, MD [facility] [place] [address] Multiple sclerosis Social History Tobacco Use Types [...] 1:00 PM EST Office Visit Urology at [facility] [address] [place] [phone] Desean Coronado MD [facility] [place] [address] 01/22/2024 12:30 PM EST Office Visit Neurosurgery at [facility] [address] [place] [address] Hema Escalante MD [address] [place] [address] Liudmila Oates PA [facility] [place] [address] 02/01/2024 12:00 PM EST Office [place] [phone] Georgette Monae PA [facility] [place] [address] 05/30/2024 10:30 AM EDT Appointment [place] [phone] documented as of this encounter Goals Goal Patient Goal Type Associated Problems Recent Progress Patient-Stated? Author prevention of MS relapse Patient Facing Action Plan Dionicio Almeida, [facility] documented as of this encounter Visit Diagnoses Diagnosis Multiple sclerosis documented in this encounter Care Teams Shore Worker Relationship Specialty Start Date End Date Lamont Owusu MD [address] [place] [address] PCP - General Family Medicine 02/10/21 documented as of this encounter
--- OUTSIDE RECORDS SUMMARY | 2024-01-15 20:03 | XMS_ITS | Encounter Summary ---
Author Organization [facility] Address [facility] [place] [address] Care Team Providers Care Supervising Editor News Reel Name Role Phone Rodriguez Roberts MD Primary Care Provider [phone] Encounter Details Date Type Department Care Team (Late st Contact Info) Description 01/02/2020 1:35 PM EST Ancillary Procedure Radiology Library at [facility] [place] [phone] Rodriguez Roberts MD [address] [place] [address] [address] [facility] [address] [place] [address] Social History Tobacco Use Types Packs/Day Years [...] 1:00 PM EST Office Visit Urology at [place] [facility] [address] [place] [phone] Desean Coronado MD [facility] [place] [address] 01/22/2024 12:30 PM EST Office Visit Neurosurgery at [facility] [address] [place] [address] [place] [address] Liudmila [place] [address] 02/01/2024 12:00 PM EST [place] [address] Georgette Monae PA [facility] [place] [address] 05/30/2024 10:30 AM EDT [place] [phone] documented as of this encounter Procedures Procedure Name Priority Date/Time Associated Diagnosis Comments FILM LIBRARY STORAGE ONLY CT SPINE Routine 01/02/2020 1:32 PM EST documented in this encounter Results * Film Library- Storage Only CT Spine (01/02/2020 1:32 PM EST) Narrative [facility] - 01/02/2020 1:32 PM EST This exam is auto-finalizing. It's purpose is for storage only. Rodriguez Roberts MD G FILM LIBRARY ORD ERABLES [place], [place] documented in this encounter Visit Diagnoses Not on filedocumented in this encounter Care Teams Supervising Editor News Reel Relationship Specialty Start Date End Date Rodriguez Roberts MD [address] [place] [address] PCP - General 11/15/13 02/09/21 documented as of this encounter
--- OUTSIDE RECORDS SUMMARY | 2024-01-15 20:03 | XMS_ITS | Encounter Summary ---
Author Organization [facility] Address [facility] [place]ив[place] [address] Care Team Providers Care Fender Mechanic Name Role Phone Lamont Owusu MD Primary Care Provider [phone] Reason for Visit * Reason Onset Date Comments Medication Refill 05/16/2021 Encounter Details Date Type Department Care Team (Late st Contact Info) Description 05/16/2021 [place] [address] Erick York III, MD [facility] [place] [address] Multiple sclerosis Social History Tobacco Use Types [...] Telephone Encounter - Eladia Cleary CMA - 05/17/2021 7:24 AM EDT Surescript request for : baclofen Last rx: 11/10/20 Quantity: 120 Refills: 3 Last appt: 02/03/21 Next appt: Pt needs a follow up appt- MSG sent to administrative secretary pool documented in this encounter Plan of Treatment Upcoming Encounters Date Type Department Care Team (Late st Contact Info) Description 01/19/2024 1:00 PM EST Office Visit Urology at [address] [phone] Desean Coronado MD [facility] [place] [address] 01/22/2024 12:30 PM EST Office Visit [facility]surgery at [facility] [address] [place] [phone] Hema Escalante MD [address] [facility] [place] [address] Liudmila Oates PA [address] [facility] [place] [address] 02/01/2024 12:00 PM EST [place] [phone] Georgette Monae PA [facility] [place] [address] 05/30/2024 10:30 AM EDT [place] [phone] documented as of this encounter Goals Goal Patient Goal Type Associated Problems Recent Progress Patient-Stated? Author prevention of MS relapse Patient Facing Action Plan Dionicio Almeida, [facility] documented as of this encounter Visit Diagnoses Diagnosis Multiple sclerosis documented in this encounter Care Teams Fender Mechanic Relationship Specialty Start Date End Date Lamont Owusu MD [address] [facility] [address] [place] [address] PCP - General Family Medicine 02/10/21 documented as of this encounter
--- OUTSIDE RECORDS SUMMARY | 2024-01-15 20:03 | XMS_ITS | Encounter Summary ---
Author Organization [facility] Address [facility] [place] [address] Care Team Providers Care Used Equipment Sales Representative Name Role Phone Rodriguez Roberts MD Primary Care Provider [phone] Encounter Details Date Type Department Care Team (Late st Contact Info) Description 02/03/2021 10:30 AM EST Office [place] [address] Erick Yokr III, MD [facility] [place] [address] Multiple sclerosis; Thoracic spinal stenosis Social History [...] Sign Reading Time Taken Comments Blood Pressure 121/84 02/03/2021 10:12 AM EST Pulse 67 02/03/2021 10:12 AM EST Temperature - - Respiratory Rate - - Oxygen Saturation - - Inhaled Oxygen Concentration - - Weight 101.5 kg (223 lb 12. 8 oz) 02/03/2021 10:12 AM EST with shoes n Height 175.3 cm (5' 9) 02/03/2021 10:1 2 AM EST reported Body Mass Index 33.05 02/03/2021 10:12 AM EST documented in this encounter Progress Notes * Erick York III, MD - 02/03/2021 10:30 AM EST [facility] Follow-up Visit Dear Rodriguez Roberts MD, I saw Erick Valero Ines in clinic today in follow-up for newly diagnosed MS. He was unaccompanied at today's visit. Below is my progress note with impression and plan. Please do not hesitate to callwith any questions. Appointment time: 10:37 AM-11:07 AM (30 minutes) DISEASE SUMMARY: Principal neurologic diagnosis: MS Onset: 2018 Diagnosis of MS: 03/2018 CSF: 13 OCBs, normal IgG index, normal cell# and protein Disease course at onset: relapsing Current disease course: relapsing Relapses: 2019 - bilateral leg, R arm and neck numbness EDSS (today): between 2-4.5 MS Severity Score (EDSS and Disease Duration): too early myD-H Multiple Sclerosis 07/18/2018 09/27/2018 11/11/2019 12/11/2019 06/03/2020 02/01/2021 Audit Sub Scores - 1 (Low Risk) - - 1 (Low Risk) - Pain Typical 7 (None-0, Worst-10) 5 (None-0, Worst-10) 4 (None-0, Worst-10) 5 (None-0, Worst-10) Incomplete Incomplete Pain Now 4 (None-0, Worst-10) 2 (None-0, Worst-10) 2 (None-0, Worst-10) 3 (None- 0, Worst-10) 2 (None-0, Worst-10) Incomplete Pain at Rest 5 (None-0, Worst-10) 2 (None-0, Worst-10) 2 (None-0, Worst-10) 2 (None-0, Worst-10) Incomplete Incomplete Pain with Activity 10 (None-0, Worst-10) 7 (None-0, Worst-10) 7 (None-0, Worst- 10) 8 (None-0, Worst-10) Incomplete Incomplete PHQ-9 Depression 12 (Moderate Depression) 15 (Moderately Severe Depression) 17 (Moderately Severe Depression) 20 (Severe Depression) - - MSIS-29 93 104 92 100 69 82 Treatment History Previous disease therapies: none Current disease therapies: Tecfidera (May 2018) Imaging History Most recent MRI brain:11/11/2019 Most recent MRI cervical spine: 11/16/2019 Most recent MRI thoracic spine: 11/16/2019 Medication-related monitoring: see below Interval History: Erick was last seen via telemedicine in November 2019. At that time reviewed prior MRI scan of his cervical and thoracic spine which did not show any new lesions. He continued on Tecfidera. Recently, he sent a [facility] message saying that he has stopped Tecfidera in early December 2020 due to side effect of flushing. Then approximately 10 days ago he developed numbness from mid torso down through his feet includinggenital area. Positioning such as sitting makes the numbness worse. He also notes occasional sensation of leg heaviness. He has chronic lower back pain. He notes that there is a sensation of numbnessthat wraps around his abdomen. He denies any recent fevers or symptoms of infection. He received COVID-19 vaccination in late December 2020. He also notes episodes of incoordination/imbalance in the spring 2020. Current Medications: reviewed and updated in EMR Physical Examination Patient Vitals for the past 24 hrs: Pulse BP 02/03/21 1012 67 121/84 Hair, skin, nails, and joints were normal. Neck was supple without Lhermitte???s phenomenon. He was alert and oriented to person, place, and time with normal language, attention and concentration, recent and remote memory, praxis, and intellectual function. Mood was euthymic. Affect was flat. Ocular ductions were full without nystagmus. Facial sensation was normal. Muscles of facial expression moved normally. Hearing was normal. Palatal movements were normal. Trapezius power and tongue movements were normal. There was no dysarthria. Motor tone was increased in the RLE. There was no pronator drift. Upper extremities (R/L) Site Leader 5/5 Finger abduction 5/5 Finger extension 5/5 Wrist extension 5/5 Elbow flexion 5/5 Elbow extension 5/5 Shoulder abduction 5/5 Lower extremities (R/L) Hip flexion 5-/5 Knee extension 5/5 Knee flexion 5/5 Ankle plantarflexion 5/5 Ankle dorsiflexion 5/5 Deep tendon reflexes (R/L): Biceps 2+/2+ Triceps 2+/2+ Knees 3+/3+ Ankles 3+/3+ Pin sensation was intact in bilateral lower extremities, but decreased in mid to lower thoracic region and around the abdomen. Vibration sensation was absent in the left lower extremity to the ankle,present on the right. There was a thoracic region sensory level with vibration on the back. Mildly positive Romberg No dysmetria with vflvho-ao-zlnd testing bilaterally. Finger tapping was slowed on the R fast on the L and accurate bilaterally. Standard gait was slightly slowed. He had difficulty with tandem walk due to recurrent sway to the right. Timed 25-foot walk (sec): 4.3 (last 4.5 in 10/2019) Assistive device: none. QUANTITATIVE SCORES: Vision 0 Brainstem 0 Pyramidal 2 Cerebellar 0 Sensory 2 B&B 1 Cerebral 0 Ambulation 1 EDSS 2.5 REVIEW OF IMAGING STUDIES: No new imaging REVIEW OF LABORATORY STUDIES: No recent labs Assessment: ICD-10-CM 1. Multiple sclerosis G35 CBC (with Diff) Hepatic Function Panel MRI Brain wo Contrast MRI Thoracic Spine wo Contrast (Generic) Hepatic Function Panel CBC (with Diff) 2. Thoracic spinal stenosis M48.04 MRI Thoracic Spine wo Contrast (Generic) Erick Chacon is a 35 y.o. man [...] significant change in functional abilities. Monitoring Plan: 1. Repeat MRI brain and thoracic spine 2. Recent CBC diff and LFTs Treatment Plan: 1. Continue on switching to Vumerity Follow-Up: 2 months via telemedicine Thank you for allowing [facility]. If you have questions or concerns please do not hesitate to call our clinic at [phone]. Erick York III, MD Radiology Specialist of Neurology [facility] More than 50% of this 30 minute wipi-od-dgft interaction was spent in counseling on diagnosis, prognosis, and medication and symptom management. 12:09 PM 02/03/2021 documented in this encounter Plan of Treatment Upcoming Encounters Date Type Department Care Team (Late st Contact Info) Description 01/19/2024 1:00 PM EST Office Visit Urology at [place] [facility] [address] [place] [phone] Desean Coronado MD [facility] [address] 01/22/2024 12:30 PM EST Office Visit Neurosurgery at [facility] [address] [place] [address] Hema Escalante MD [facility] [place] [address] Liudmila Oates PA [facility] [address] 02/01/2024 12:00 PM EST Office [place] [phone] Georgette Monae PA [facility] [place] [address] 05/30/2024 10:30 AM EDT Appointment Med Infusion at [facility] [place] [address] documented as of this encounter Procedures Procedure Name Priority Date/Time Associated Diagnosis Comments HEMOGRAM Routine 02/03/2021 11:45 AM EST Multiple sclerosis DIFFERENTIAL, AUTOMATED Routine 02/03/2021 11:45 AM EST Multiple sclerosis HC CBC,PLT & AUTO DIFF Routine 02/03/2021 11:45 AM EST Multiple sclerosis HC VENIPUNCTURE Routine 02/03/2021 11:45 AM EST Multiple sclerosis documented in this encounter Results * (ABNORMAL) Differential, Automated (02/03/2021 11:45 AM EST) Neutrophil % 73.9 % [facility] Neutrophil Absolute 6.21(H) 1.70 - 6.10 x10(3)/mc L [facility] Lymph % 17.9 % [facility] Lymphocytes Abs 1.5 0.9 - 3.2 x10(3)/mc L [facility] Monocyte % 6.1 % [facility] Monocyte Abs 0.5 0.3 - 0.9 x10(3)/mc L [facility] Eos % 1.3 % [facility] Eosinophils Abs 0.1 0.0 - 0.4 x10(3)/mc L [facility] Basophil % 0.6 % [facility] Baso Absolute 0.0 0.0 - 0.1 x10(3)/mc L [facility] Immature Gran % 0.20 % [facility] Comment: Immature granulocytes(IG's)percentage and absolute count will include metamyelocytes, myelocytes, and promyelocytes. Blood smears from CBCs yielding IG's will be scanned manually for concordance. If this scan disagrees with the automated IG or if promyelocytes are noted, a manual differential will be performed. Immature Gran Absolute 0.02 0.00 - 0.04 x10(3)/mc L [facility] Blood 02/03/2021 11:4 5 AM EST 02/03/2021 11:53 AM EST Narrative Resulting Agency Comment Spec In Lab Erick York III, MD HEMATOLOGY ORDERA BLES [facility] [place] [address] * Hemogram (02/03/2021 11:45 AM EST) White Blood Cell 8.4 4.0 - 9.5 x10(3)/[facility] Red Blood Cell 5.20 4.58 - 5.54 x10(6)/[facility] Hemoglobin 15.1 13.7 - 16.5 g/dL [facility] Hematocrit 44.3 40.5 - 48.5 % [facility] Mean Cell Volume 85.2 82.9 - 93.1 fL [facility] Mean Cell Hemoglobin 29.0 27.5 - 32.1 pg [facility] Mean Cell Hemoglobin Concentration 34.1 32.0 - 35.7 g/dL [facility] Platelet 232 145 - 357 x10(3)/[facility] RDW Standard Deviation 40.3 36.0 - 45.0 fL [facility] RDW coefficient of variation 13.0 11.4 - 13.8 % [facility] Mean Platelet Volume 11.2 7.6 - 12.9 fL [facility] NRBC% auto 0.0 % [facility] NRBC Absolute 0.000 0.000 - 0.000 x10(3)/[facility] Blood 02/03/2021 11:4 5 AM EST 02/03/2021 11:53 AM EST Narrative Resulting Agency Comment Spec In Lab Erick York III, MD HEMATOLOGY ORDERA BLES Performing Organization Address City/[facility] Co de Phone Number [facility] [place] [address] * Hepatic Function Panel (02/03/2021 11:45 AM EST) Protein, Total 7.4 6.1 - 8.0 g/dL [facility] Albumin 4.4 3.2 - 5.2 g/dL [facility] Aspartate Aminotransferase 20 0 - 39 unit/L [facility] Alanine Aminotransferase 27 0 - 55 unit/L [facility] Alkaline Phosphatase 74 40 - 130 unit/L [facility] Bilirubin, Total 0.4 0.2 - 1.3 mg/dL [facility] Bilirubin, Direct 0.1 0.0 - 0.3 mg/dL [facility] Blood 02/03/2021 11:4 5 AM EST 02/03/2021 11:53 AM EST Narrative Resulting Agency Comment Spec In Lab Erick York III, MD CHEMISTRY ORDERAB LES Performing Organization Address City/[facility] Co de Phone Number [facility] [place] [address] documented in this encounter Visit Diagnoses Diagnosis Multiple sclerosis Thoracic spinal stenosis Spinal stenosis of thoracic region documented in this encounter Care Teams Used Equipment Sales Representative Relationship Specialty Start Date End Date Rodriguez Roberts MD [address] [place] [address] PCP - General 11/15/13 02/09/21 documented as of this encounter
--- OUTSIDE RECORDS SUMMARY | 2024-01-15 20:03 | XMS_ITS | Encounter Summary ---
Author Organization [facility] Address [facility] Melinda meyerиван [place] [address] Care Team Providers Care Silverware Washer Name Role Phone Lamont Owusu MD Primary Care Provider [phone] Reason for Visit * Reason Onset Date Comments Medication Refill 02/27/2020 Encounter Details Date Type Department Care Team (Late st Contact Info) Description 02/27/2020 [place] [address] Erick York III, MD [facility] [place] [address] Social History Tobacco Use Types Packs/Day Years [...] 1:00 PM EST Office Visit [facility]rology at [place] [facility] [address] [place] [phone] Desean Coronado MD [facility] [place] [address] 01/22/2024 12:30 PM EST Office Visit Neurosurgery at [facility] [place] [address] [place] [address] Liudmila Oates PA [facility] [place] [address] 02/01/2024 12:00 PM EST Office [place] [phone] Georgette Monae PA [facility] [place] [address] 05/30/2024 10:30 AM EDT Appointment [place] [phone] documented as of this encounter Visit Diagnoses Not on filedocumented in this encounter Care Teams Silverware Washer Relationship Specialty Start Date End Date Lamont Owusu MD [address] [place] [address] PCP - General Family Medicine 02/10/21 documented as of this encounter
--- OUTSIDE RECORDS SUMMARY | 2024-01-15 20:03 | XMS_ITS | Encounter Summary ---
Author Organization [facility] [place] [address] Care Team Providers Care Tube Building Machine Operator Name Role Phone Rodriguez Roberts MD Primary Care Provider [phone] Reason for Visit * Reason Comments Specialty Pharmacy Review Encounter Details Date Type Department Care Team (Late st Contact Info) Description 12/02/2020 Specialty [place] [phone] Josef Zabala RPH Social History Tobacco Use Types Packs/Day Years [...] Progress Notes * Josef Zabala RPH - 12/02/2020 11:59 PM EDT The [facility] has completed a benefits investigation for Erick Valero Ines to review their eligibility to fill at [facility]. Per patient's medication list they are prescribed Tecfidera and the medication is able to be filled at the [facility]. documented in this encounter Plan of Treatment Upcoming Encounters Date Type Department Care Team (Late st Contact Info) Description 01/19/2024 1:00 PM EST Office Visit Urology at [place] [facility] [address] [place] [phone] Desean Coronado MD [facility] [place] [address] 01/22/2024 12:30 PM EST Office Visit Neurosurgery at [facility] [address] [place] [address] Hema Escalante MD [address] [facility] [place] [address] Liudmila Oates PA [address] [facility] [place] [place] [address] 02/01/2024 12:00 PM EST [place] [address] Georgette Monae PA [facility] [place] [address] 05/30/2024 10:30 AM EDT Appointment [place] [address] documented as of this encounter Visit Diagnoses Not on filedocumented in this encounter Care Teams Tube Building Machine Operator Relationship Specialty Start Date End Date Rodriguez Roberts MD [address] [place] [address] PCP - General 11/15/13 02/09/21 documented as of this encounter
--- OUTSIDE RECORDS SUMMARY | 2024-01-15 20:03 | XMS_ITS | Encounter Summary ---
Author Organization [facility] Address [facility] [place] [address] Care Team Providers Care Senior Android Software Engineer Name Role Phone Lamont Owusu MD Primary Care Provider [phone] Encounter Details Date Type Department Care Team (Late st Contact Info) Description 03/03/2021 [place] [address] Erick York III, MD [facility] [place] [address] Social History Tobacco Use Types Packs/Day Years [...] 1:00 PM EST Office Visit Urology at [place] [facility] [address] [place] [phone] Desean Coronado MD [facility] [place] [address] 01/22/2024 12:30 PM EST Office Visit Neurosurgery at [facility] [place] [address] Hema Escalante MD [address] [address] [place] [address] 02/01/2024 12:00 PM EST Office [place] [phone] Georgette Monae PA [facility] [place] [address] 05/30/2024 10:30 AM EDT Appointment [place] [phone] documented as of this encounter Goals Goal Patient Goal Type Associated Problems Recent Progress Patient-Stated? Author prevention of MS relapse Patient Facing Action Plan Dionicio Almeida, [facility] documented as of this encounter Visit Diagnoses Not on filedocumented in this encounter Care Teams Senior Android Software Engineer Relationship Specialty Start Date End Date Lamont Owusu MD [address] [place] [address] PCP - General Family Medicine 02/10/21 documented as of this encounter
--- OUTSIDE RECORDS SUMMARY | 2024-01-15 20:03 | XMS_ITS | Encounter Summary ---
[place] [address] Care Team Providers Care Staff Midwife Name Role Phone Rodriguez Roberts MD Primary Care Provider [phone] Reason for Visit * Reason Onset Date Comments TeleHealth 12/17/2019 Encounter Details Date Type Department Care Team (Late st Contact Info) Description 12/17/2019 [place] [phone] Babs Nguyễn V, RN TeleHealth Social History Tobacco Use Types Packs/Day Years [...] encounter Miscellaneous Notes * Telephone Encounter - Babs Nguyễn CCMA - 12/17/2019 2:36 PM EDT Unable to reach patient to review medications and allergies prior to upcoming tele- appointment scheduled with Neurosurgery provider. documented in this encounter Plan of Treatment Upcoming Encounters Date Type Department Care Team (Late st Contact Info) Description 01/19/2024 1:00 PM EST Office Visit Urology at [place] [facility] [address] [place] [phone] Desean Coronado MD [facility] [place] [address] 01/22/2024 12:30 PM EST Office Visit Neurosurgery at [facility] [address] [facility] [place] [address] Hema Escalante MD [address] [facility] [place] [address] Liudmila Oates PA [address] [facility] [place] [address] 02/01/2024 12:00 PM EST [place] [phone] Georgette Monae PA [facility] [place] [address] 05/30/2024 10:30 AM EDT [place] [phone] documented as of this encounter Visit Diagnoses Not on filedocumented in this encounter Care Teams Staff Midwife Relationship Specialty Start Date End Date Rodriguez Roberts MD [address] [place] [address] PCP - General 11/15/13 02/09/21 documented as of this encounter
--- OUTSIDE RECORDS SUMMARY | 2024-01-15 20:03 | XMS_ITS | Encounter Summary ---
Author Organization [facility] [place] [address] Care Team Providers Care Credit Risk Analytics Manager Name Role Phone Rodriguez Roberts MD Primary Care Provider [phone] Reason for Visit * Reason Comments Specialty Pharmacy Review Encounter Details Date Type Department Care Team (Late Contact Info) Description 07/08/2020 Specialty [place] [phone] Octavio Yanes RPH Social History Tobacco Use Types Packs/Day [...] this encounter Progress Notes * Octavio Yanes RPH - 07/08/2020 9:52 AM EDT The [facility] has completed a benefits investigation for Erick Valero Ines to review their eligibility to fill at [facility]. Per patient's medication list they are prescribed Tecfidera and the medication is able to be filled at the [facility]. documented in this encounter Plan of Treatment Upcoming Encounters Date Type Department Care Team (Late st Contact Info) Description 01/19/2024 1:00 PM EST Office Visit Urology at [place] [facility] [address] [place] [phone] Desean Coronado MD [facility] [place] [address] 01/22/2024 12:30 PM EST Office Visit Neurosurgery at [facility] 10 [place] [address] Hema Escalante MD [address] [facility] [place] [address] Liudmila Oates PA [address] [facility] [place] [address] 02/01/2024 12:00 PM EST [place] [address] Georgette Monae PA [facility] [place] [address] 05/30/2024 10:30 AM EDT [place]oint[place] [phone] documented as of this encounter Visit Diagnoses Not on filedocumented in this encounter Care Teams Credit Risk Analytics Manager Relationship Specialty Start Date End Date Rodriguez Roberts MD [address] [place] [address] PCP - General 11/15/13 02/09/21 documented as of this encounter
--- OUTSIDE RECORDS SUMMARY | 2024-01-15 20:03 | XMS_ITS | Encounter Summary ---
Author Organization [facility] [place] [address] Care Team Providers Care Title Clerk Automobile Name Role Phone Lamont Owusu MD Primary Care Provider [phone] Reason for Visit * Reason Comments Patient Education Medication Management Encounter Details Date Type Department Care Team (Late st Contact Info) Description 02/10/2021 Specialty [place] [phone] Dionicio Doherty [facility] Social History Tobacco Use Types Packs/Day Years [...] Progress Notes * Dionicio Doherty RP - 02/10/2021 3:24 PM EST Images from the original note were not included. Specialty Pharmacy Consultation; Dionicio Doherty Adrianne Comprehensive Medication Management (CMM) Erick Valero Ines Diagnosis: MS Therapy Start Date: anticipated start 02/18/2021 MS Diagnosis date (mm/yy): Prior MS therapy: Tecfidera Duration of therapy: 2.5 years Reason for discontinuation: side effects Contact in person or via telephone:telephone Mr. Erick Chacon is a 35 y.o. (1985) male who was contacted in regard to specialty medication. Spoke with patient regarding Vumerity . A review of the medication therapy was performed. Themedication was Filled as scheduled, and all medication related questions and concerns were addressed. The specialty pharmacy staff will follow up with the patient 5-7 days prior to next refill. Is the patient willing to proceed with the Clinical Assessment? Yes Summary and Recommendations: ?? Comprehensive review of Vumerity discussed with the patient. Topics covered include: warnings/precautions & contraindications, patient's dose and frequency of administration, personal indication for use, potential adverse effects, drug &/or food interactions, monitoring/safety parameters ?? Medication & allergy review completed ?? Medication access - Prior Authorization was recently approved and patient was agreeable to $3 copay ?? Titration - discussed rationale for dose titration and went over dosing schedule, Erick felt confident that he could take medication correctly ?? Side effects - discussed common side effects (flushing, GI issues) and mitigation strategies ?? Clinic follow-up needed: no Allergies and Drug intolerance: No Known Allergies Problem List: Patient Active Problem List Diagnosis Code ??? Left lumbar radiculopathy M54.16 ??? Right lumbar radiculopathy M54.16 ??? Lower back pain M54.50 ??? 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 Abnormal MRI, spinal cord R90.89 ??? Multiple sclerosis G35 ??? Abnormal brain MRI R90.89 ??? Sensory impairment R44.8 ??? Lhermitte's sign positive R29.818 ??? Gait instability R26.81 ??? Thoracic disc herniation M51.24 Special Dietary or Hydration Requirements: no Medication Reconciliation Discrepancies (compared to [facility] med list) -n/a Medication List: Current Outpatient Medications Medication Sig Dispense Refill ??? meloxicam (MOBIC) 15 mg Tablet Take 15 mg by mouth daily. ??? FLUoxetine (PROzac) 20 mg Capsule Take 40 mg by mouth daily. ??? diroximel fumarate (Vumerity) 231 mg Capsule, Delayed Release(E.C.) Take 231 mg by mouth 2 times daily for 7 days. Then increase to 462 mg (2 capsules) twice a day thereafter 106 capsule 0 ??? baclofen (Lioresal) 10 mg Tablet PO. 10mg AM, 10mg PM, 15-20mg in the evening. 120 tablet 3 ??? losartan (Cozaar) 25 mg Tablet Take 25 mg by mouth daily. ??? gabapentin (Neurontin) 100 mg Capsule PO. 2 tabs in AM, 2 tabs in the afternoon, and 4 tabs nightly. 240 capsule 5 ??? venlafaxine (EFFEXOR-XR) 150 mg Capsule, Sust. Release 24 hr Take 150 mg by mouth daily. ??? aspirin 325 mg Tablet Take 325 mg by mouth daily. ??? diazePAM (VALIUM) 5 mg Tablet Take 1 tablet by mouth nightly as needed for Muscle spasms. 14 tablet 0 ??? traMADol (ULTRAM) 50 mg Tablet Take 1 tablet by mouth every 4 hours as needed for Pain. 60 tablet 0 ??? b complex vitamins Capsule Take 1 capsule by mouth daily. ??? methylphenidate (RITALIN) 20 mg Tablet Take 20 mg by mouth 3 times daily. 0 No current facility-administered medications for this visit. Most Recent Vitals: Ht Readings from Last 1 Encounters: 02/03/21 175.3 cm (5' 9) Wt Readings from Last 3 Encounters: 02/03/21 101.5 kg (223 lb 12.8 oz) 11/11/19 99.3 kg (219 lb) 10/26/18 103.8 kg (228 lb 12.8 oz) Temp Readings from Last 3 Encounters: 04/07/18 36.6 ??C (97.9 ??F) (Oral) 12/01/15 36.7 ??C (98 ??F) 10/08/15 36.7 ??C (98 ??F) (Oral) BP Readings from Last 3 Encounters: 02/03/21 121/84 11/11/19 132/81 10/26/18 123/71 Pulse Readings from Last 3 Encounters: 02/03/21 67 11/11/19 75 10/26/18 75 There is no height or weight on file to calculate BMI. Pertinent Lab values: Lab Results Component Value Date NA 139 04/05/2018 K 3.8 04/05/2018 CL 103 04/05/2018 CO2 27 04/05/2018 BUN 16 04/05/2018 CREATININE 0.76 (L) 04/05/2018 GLUCOSE 106 04/05/2018 CALCIUM 9.1 04/05/2018 Lab Results Component Value Date ALT 27 02/03/2021 AST 20 02/03/2021 ALKPHOS 74 02/03/2021 BILITOT 0.4 02/03/2021 BILIDIR 0.1 02/03/2021 ALBUMIN 4.4 02/03/2021 PROT 7.4 02/03/2021 Lab Results Component Value Date WBC 8.4 02/03/2021 HGB 15.1 02/03/2021 HCT 44.3 02/03/2021 MCV 85.2 02/03/2021 PLATELET 232 02/03/2021 No results found for: HA1C Immunization History Administered Date(s) Administered ??? Influenza PF, Split 12/01/2015 Assessment and Recommendations: Patient Counseling Patient accepted offer to certified alcohol drug counselor: cost of medications/cost implications, possible adverse side effects and management, possible drug/Rx drug interactions, therapeutic rationale, adherence/missed doses, doses and administration, pharmacy contact information, possible drug/OTC drug and food interactions, safe handling, storage, and disposal Medication Management Summary Topics discussed: reviewed medication changes since last visit, drug interaction education provided to patient, possible adverse effects and management discussed, cost of medications and cost implications discussed, adherence and missed doses discussed, health goals discussed, monitoring medication discussed, recommendations to doctor discussed, reminder to refill or pickling tank operator medication discussed, self-monitoring discussed, start medication discussed Time spent: 1-15 min Treatment Outcomes 02/10/2021 1532 Disease progression: Mild Treatment Goals: Have not been met Patient Overall Status: Worsensed experienced relapse before starting new med Reviewed in detail with patient: Dose appropriateness based on recommended standard dosing Current medication list including OTC medications Medication and disease problems Allergies Comorbid conditions/ Problem List Past adverse events if any Special needs of the patient including physical and cognitive limitations Goals of therapy and management strategies Warnings, precautions, and contraindications Side effects Drug-drug and drug-food interactions Administration instructions including dose, frequency and method Handling, storage, and disposal Verifying expiration dates on products before use Rotating medication inventory to use oldest product first Relevant lab data Treatments impact on disease Dose appropriateness based on recommended standard dosing schedule, including any variations from FDA approved dosing Patient verbalizes understanding and is able to read-back instructions on self-administration/injection, proper storage, drug stability, importance of adherence and management strategies, side effect avoidance and mitigation strategies, and interruptions in therapy: Yes Patient is aware a licensed pharmacist is available 24 hours a day, 7 days a week to discuss medication-related questions or concerns: Yes Patient verbalizes understanding of the common side effect profile of their medication. The patient is able to call 911 or seek urgent care if signs/symptoms of allergy or harmful adverse reactions occur: Yes Additional care/services needed: No Additional equipment/supplies required: No Patient satisfied with care/services provided: Yes Specialty Assessment: Physical and Cognitive Assessment: Functional limitations identified: No Cognitive limitations identified: No Concern regarding orientation/memory: No Concern with reasoning/judgement: No Is patient a fall risk: No Social Assessment: Does patient have a primary director of primary care: No Does patient have an emergency contact on file: Yes Does patient need referral to renal social worker: No Does patient need referral to advocacy group: No Home Health Assessment: Is the patient in a safe home environment?: Yes Is the patient able to store their medication as directed?: Yes Does the patient have a support network at home?: Yes Reviewed potential home safety hazards with patient: Yes Economic Assessment: Patient is agreeable to medication copay: Yes Actual Copay: $: 3 Days Supply: 30 Welcome Packet and Rights and Responsibilities: Patient provided welcome packet/rights and responsibilities: Yes Date Confirmed: 12/13/19 Confirmation: Verbal Specialty Med Adherence Patient Demonstrates Understanding of Importance of Adherence: Yes Educational Information or Adherence Tools Provided: Yes Patient Reported X Missed Doses in the Last Month: 0 Other reason for gaps in therapy: experienced side effects from Tecfidera and went off medication Adherence Tools Used: directed education Adherence Summary: Pt experienced side effects from previous therapy, stopped med and agreed with decision Therapy Assessment: Current Medication Dosing/Route/Frequency: Vumerity 231 mg, Take one capsule BID for 7 days, then take 2 capsules BID thereafter Appropriate Therapy: Yes MS Diagnosis Type: RRMS Recent Relapses: yes - Dec 2020 after stopping Tecfidera Relapsing/Remitting Factors: numbness in torso and lower extremities Current Pain Levels: 2-3 Unmanaged MS Symptoms Identified: none Patient's Problems/Needs: none Expected Outcome: prevention of future MS relapses Patient's goals: Patient's specific desired goal: to prevent MS relapses Measured by: MRI and clinical symptoms Time-frame to meet goal: 6 months Monitoring requirements for prescribed medication: CBC with diff, LFTS, MRI Care Plan Reviewed and Approved by both Pharmacist and Patient: Yes Interventions (if applicable): No Pharmacist follow-up needed: Yes Patient understands no changes to current drug regimen were made at the appointment and that [facility] is[facility] (summary located at top of note) for provider review and follow up. Dionicio Doherty RPH 02/10/21 3:41 PM documented in this encounter Plan of Treatment Upcoming Encounters Date Type Department Care Team (Late st Contact Info) Description 01/19/2024 1:00 PM EST Office Visit Urology at [place] [address] [place] [phone] Desean Coronado MD [facility] [place] [address] 01/22/2024 12:30 PM EST Office Visit Neurosurgery at [facility] [place] [address] Hema Escalante MD [address] [facility] [place] [address] Liudmila Oates PA 10 [facility] [place] [address] 02/01/2024 12:00 PM EST Office [place] [address] Georgette Monae PA [facility] [place] [place] [address] 05/30/2024 10:30 AM EDT Appointment [place] [phone] documented as of this encounter Goals Goal Patient Goal Type Associated Problems Recent Progress Patient-Stated? Author prevention of MS relapse Patient Facing Action Plan Dionicio Almeida, [facility] documented as of this encounter Visit Diagnoses Not on filedocumented in this encounter Care Teams Title Clerk Automobile Relationship Specialty Start Date End Date Lamont Owusu MD [address] [place] [address] PCP - General Family Medicine 02/10/21 documented as of this encounter
--- OUTSIDE RECORDS SUMMARY | 2024-01-15 20:03 | XMS_ITS | Encounter Summary ---
Author Organization [facility] Address [facility] [place] [address] Care Team Providers Care News Clerk Name Role Phone Rodriguez Roberts MD Primary Care Provider [phone] Reason for Visit * Consultation - Closed Specialty Diagnoses / Procedures Referred By Contac t Referred To Contact Neurosurgery Diagnoses Thoracic spinal stenosis T8-9 extruding disc with impression on the ventral aspect of the spinal cord Erick York III, MD [facility] [place] [address] [facility] Neurosurgery [address] [place] [phone] Referral ID Status Reason Start Date Expiration Date V isits Requested Visits Authorized [id number] Closed Consult, Test & Treat 12/04/2019 12/03/2020 1 1 Encounter Details Date Type Department Care Team (Latest Contact Info) Description 12/18/2019 2:30 PM EDT TH Visit (TeleHealth) [place] [phone] Dannie Sorto PA [facility] [place] [address] Thoracic disc herniation Social History Tobacco Use Types Packs/Day Years [...] as of this encounter Progress Notes * aDnnie Sorto PA - 12/18/2019 2:30 PM EDT Images from the original note were not included. . Section of Neurosurgery Initial Consultation Note - Telehealth Office Visit 12/18/2019 Erick York III, MD [facility] [place] [address] RE: Erick Chacon : [address] York: Thank you for referring your patient Erick Chacon to the Neurosurgery Clinic at [facility] for evaluation of T8-9 disc herniation. Mr. Chacon is a 34 yo M with h/o MS, cervicothoracic plaques, Chiari I malformation, and a T8-9 right paracentral disc herniation (stable since 2014). He complains of weakness and spasticity in the RLE and altered sensation in the LLE. He has been having worsening difficulty with ambulating due to leg fatigue and imbalance. He reports he can only walk about a quarter of a mile before his symptoms set in. PAST MEDICAL HISTORY: Patient Active Problem List Diagnosis ??? Multiple sclerosis ??? Abnormal brain MRI ??? Sensory impairment Overview Note: Decreased sensation of BL lower extremities (right worse than left), right arm, and right neck ??? Lhermitte's sign positive ??? Gait instability ??? Thoracic disc herniation Overview Note: RIGHT posterior lateral T8-T9 disc protrusion with foraminal extension and mass effect on the cord resulting in moderate central canal narrowing and moderate RIGHT T8-T9 subarticular recess narrowing. There is T2 prolongation within the disc and postcontrast enhancement consistent with an acute on chronic protrusion. Question caudad migration of a disc fragment inferior and along the posterior aspect of T9. ??? Abnormal MRI, spinal cord ??? Angiokeratoma circumscriptum ??? Right lumbar radiculopathy ??? Lower back pain ??? Left lumbar radiculopathy Past Medical History: Diagnosis Date ??? Anxiety ??? Arthritis ??? Cardiac disease ??? Dry mouth ??? Headache(784.0) ??? Hypertension ??? Neuromuscular disorder ??? Trauma PAST SURGICAL HISTORY: Past Surgical History: Procedure Laterality Date ??? XR FLUORO GUIDED LUMBAR PUNCTURE N/A 04/06/2018 XR Fluoro Lumbar Puncture 04/06/[address] [facility] RAD XRAY SOCIAL HISTORY: Social History Tobacco Use ??? Smoking status: Former Smoker Types: Cigarettes Quit date: 08/20/2018 Years since quittin.3 ??? Smokeless tobacco: Never Used Substance Use Topics ??? Alcohol use: Not Currently ??? Drug use: No FAMILY HISTORY: Family History Problem Relation Age of Onset ??? Arthritis Mother ??? Hypertension Mother ??? Diabetes Paternal Grandfather ??? Amblyopia Neg Hx ??? Cataracts Neg Hx ??? Glaucoma Neg Hx ??? Macular Degeneration Neg Hx ??? Retinal Detachment Neg Hx ??? Strabismus Neg Hx ??? Thyroid Disease Neg Hx CURRENT MEDICATIONS: ??? Tecfidera 240 mg Capsule, Delayed Release(E.C.) ??? baclofen (Lioresal) 10 mg Tablet ??? gabapentin (Neurontin) 100 mg Capsule ??? topiramate (TOPAMAX) 50 mg Tablet ??? venlafaxine (EFFEXOR-XR) 150 mg Capsule, Sust. Release 24 hr ??? aspirin 325 mg Tablet ??? diazePAM (VALIUM) 5 mg Tablet ??? traMADol (ULTRAM) 50 mg Tablet ??? NIFEdipine (ADALAT CC) 30 mg Tablet Sustained Release ??? b complex vitamins Capsule ??? methylphenidate (RITALIN) 20 mg Tablet ALLERGIES: No Known Allergies REVIEW OF SYSTEMS: MSK: Per HPI Neuro: Per HPI : Negative GI: Constipation RADIOGRAPHIC STUDIES: MRI thoracic spine w/wo contrast 11/16/2019 T8-9 right paracentral disc herniation indents right nilton cord with compression. No associate cord signal change. Finding similar to 2015. IMPRESSION AND PLAN: Mr. Chacon is a 34 y.o. male with MS, Chiari I malformation, and right paracentral T8-9 disc herniation presenting with RLE spasticity, and LLE sensory deficits Findings warrant further evaluation. Patient will be scheduled for in person evaluation and meetingwith Dr. Hanson. CT thoracic spine beforehand. Thank you again for your referral. Please don't hesitate to contact me if you have any further questions. Sincerely, Dannie Sorto PA-C, [place] Physician Game Artist [facility] Department of Neurosurgery [address] [place] [phone] CC: Rodriguez Roberts MD CC: Erick York III, MD [facility] [place] [address] This message is confidential, intended only for the named recipient(s) and may contain information that is privileged or exempt from disclosure under applicable law. If you are not the intended recipient(s), you are notified that the dissemination, distribution or copying of this information is strictly prohibited. If you received this message in error, please notify the sender then delete this message. documented in this encounter Plan of Treatment Upcoming Encounters Date Type Department Care Team (Late st Contact Info) Description 01/19/2024 1:00 PM EST Office Visit Urology at [place] [facility] [address] [place] [phone] Desean Coronado MD [facility] [place] [address] 01/22/2024 12:30 PM EST Office Visit Neurosurgery at [facility] [place] [address] Hema Escalante MD [address] [facility] [place] [address] Liudmila Oates PA [address] [facility] [place] [address] 02/01/2024 12:00 PM EST Office [place] [address] Georgette Monae PA [facility] [place] [address] 05/30/2024 10:30 AM EDT Appointment [place] [phone] documented as of this encounter Visit Diagnoses Diagnosis Thoracic disc herniation Displacement of thoracic intervertebral disc without myelopathy documented in this encounter Care Teams News Clerk Relationship Specialty Start Date End Date Rodriguez Roberts MD [address] [place] [address] PCP - General 11/15/13 02/09/21 documented as of this encounter
--- OUTSIDE RECORDS SUMMARY | 2024-01-15 20:03 | XMS_ITS | Encounter Summary ---
Author Organization [facility] Address [facility] [place] [address] Care Team Providers Care Camp Coordinator Name Role Phone Lamont Owusu MD Primary Care Provider [phone] Encounter Details Date Type Department Care Team (Latest Contact Info) Description 12/27/2021 Travel Social History Tobacco Use Types Packs/Day [...] 1:00 PM EST Office Visit Urology at [place] [facility] [address] [place] [phone] Desean Coronado MD [facility] [place] [address] 01/22/2024 12:30 PM EST Office Visit Neurosurgery at [facility] [address] [place] [phone] Hema Escalante MD [facility] [place] [address] [place] [address] 02/01/2024 12:00 PM EST Office [place] [phone] Georgette Monae PA [facility] [place] [address] 05/30/2024 10:30 AM EDT Appointment [place] [phone] documented as of this encounter Goals Goal Patient Goal Type Associated Problems Recent Progress Patient-Stated? Author prevention of MS relapse Patient Facing Action Plan Dionicio Almeida, [facility] documented as of this encounter Visit Diagnoses Not on filedocumented in this encounter Care Teams Camp Coordinator Relationship Specialty Start Date End Date Lamont Owusu MD [facility] [address] [place] [address] PCP - General Family Medicine 02/10/21 documented as of this encounter
--- OUTSIDE RECORDS SUMMARY | 2024-01-15 20:03 | XMS_ITS | Encounter Summary ---
Author Organization [facility] Address [facility] [place] [place] [address] Care Team Providers Care Medical Equipment Sales Name Role Phone Rodriguez Roberts MD Primary Care Provider [phone] Reason for Visit * Reason Onset Date Comments Appointment 12/16/2019 Encounter Details Date Type Department Care Team (Late st Contact Info) Description 12/16/2019 [place] [address] Erick York III, MD [facility] [place] [address] Appointment Social History Tobacco Use Types Packs/Day [...] encounter Miscellaneous Notes * Telephone Encounter - Francisco Bailey - 12/16/2019 8:26 AM EDT Schedule 4mo FUV w/ Dr. York (around 04/12/2020) documented in this encounter Plan of Treatment Upcoming Encounters Date Type Department Care Team (Late st Contact Info) Description 01/19/2024 1:00 PM EST Office Visit Urology at [place] [facility] [address] [place] [phone] Desean Coronado MD [facility] [place] [address] 01/22/2024 12:30 PM EST Office Visit Neurosurgery at [facility] [address] [place] [address] Hema Escalante MD [address] [facility] [place] [address] Liudmila Oates PA [address] [facility] [place] [address] 02/01/2024 12:00 PM EST Office [place] [address] [facility] [place] [address] 05/30/2024 10:30 AM EDT Appointment [place] [phone] documented as of this encounter Visit Diagnoses Not on filedocumented in this encounter Care Teams Medical Equipment Sales Relationship Specialty Start Date End Date Rodriguez Roberts MD [address] [place] [address] PCP - General 11/15/13 02/09/21 documented as of this encounter
--- OUTSIDE RECORDS SUMMARY | 2024-01-15 20:03 | XMS_ITS | Encounter Summary ---
Author Organization [facility] Address [facility] [place] [address] Care Team Providers Care Promotions Team Leader Name Role Phone Rodriguez Roberts MD Primary Care Provider [phone] Reason for Visit * Reason Onset Date Comments Medication Refill 11/10/2020 Encounter Details Date Type Department Care Team (Late st Contact Info) Description 11/10/2020 [place] [address] Erick York III, MD [facility] [place] [address] Multiple sclerosis Social History Tobacco Use Types [...] 1:00 PM EST Office Visit U[facility] at [facility] [address] [place] [phone] Desean Coronado MD [facility] [place] [address] 01/22/2024 12:30 PM EST Office Visit Neurosurgery at [facility] [address] [place] [address] Hema Escalante MD [address] [place] [address] Liudmila Oates PA [facility] [place] [address] 02/01/2024 12:00 PM EST Office [place] [phone] Georgette Monae PA [facility] [place] [address] 05/30/2024 10:30 AM EDT [place]ointment [place] [phone] documented as of this encounter Visit Diagnoses Diagnosis Multiple sclerosis documented in this encounter Care Teams Promotions Team Leader Relationship Specialty Start Date End Date Rodriguez Roberts MD [address] [place] [address] PCP - General 11/15/13 02/09/21 documented as of this encounter
--- OUTSIDE RECORDS SUMMARY | 2024-01-15 20:03 | XMS_ITS | Encounter Summary ---
Author Organization [facility] Address [facility] [place] [address] Care Team Providers Care Insect Control Inspector Name Role Phone Rodriguez Roberts MD Primary Care Provider [phone] Reason for Visit * Reason Onset Date Comments Appointment 01/08/2021 Encounter Details Date Type Department Care Team (Late st Contact Info) Description 01/08/2021 [place] [address] Erick York III, MD [facility] [place] [address] Appointment Social History Tobacco Use Types Packs/Day [...] Miscellaneous Notes * Telephone Encounter - Babs Perry - 01/08/2021 8:[address] York, patient contacted one additional time to schedule an overdue follow up visit. Scheduling Instructions Provider: migdalia Visit Type (paste SAIGE Instructions or manually enter): fuv Appt Note: overdue ms fuv Additional Info Needed: documented in this encounter Plan of Treatment Upcoming Encounters Date Type Department Care Team (Late st Contact Info) Description 01/19/2024 1:00 PM EST Office Visit Urology at [facility] [address] [place] [phone] Desean Coronado MD [facility] [place] [address] 01/22/2024 12:30 PM EST Office Visit Neurosurgery at [facility] 10 [place] [address] Hema Escalante MD 10 [facility] [place] [address] Liudmila Oates PA 10 [facility] [place] [address] 02/01/2024 12:00 PM EST Office [place] [phone] Georgette Monae PA [facility] [place] [address] 05/30/2024 10:30 AM EDT [place]oint[place] [phone] documented as of this encounter Visit Diagnoses Not on filedocumented in this encounter Care Teams Insect Control Inspector Relationship Specialty Start Date End Date Rodriguez Roberts MD [address] [place] [address] PCP - General 11/15/13 02/09/21 documented as of this encounter
--- OUTSIDE RECORDS SUMMARY | 2024-01-15 20:03 | XMS_ITS | Encounter Summary ---
Author Organization [facility] Address [facility] [place] [address] Care Team Providers Care Drop Wire Hanger Name Role Phone Lamont Owusu MD Primary Care Provider [phone] Reason for Visit * Reason Onset Date Comments Appointment 02/25/2022 Encounter Details Date Type Department Care Team (Late st Contact Info) Description 02/25/2022 Telephone [place] [address] Erick York III, MD [facility] [place] [address] Appointment Social History Tobacco Use Types Packs/Day [...] * Telephone Encounter - Nova [place] - 03/18/2022 8:20 AM EST Left message to schedule overdue follow up with Dr. York. Letter sent. * Telephone Encounter - Nova [place] - 02/25/2022 2:24 PM EST Scheduling Instructions Provider: Jaylen Visit Type (paste SAIGE Instructions or manually enter): Follow up If EMG Visit needed list diagnosis for the EMG to be used in Decision Tree: Appt Note: Overdue follow up Additional Info Needed: Schedule first available follow up documented in this encounter Plan of Treatment Upcoming Encounters Date Type Department Care Team (Late st Contact Info) Description 01/19/2024 1:00 PM EST Office Visit Urology at [facility] [address] [place] [phone] Desean Coronado MD [facility] [place] [address] 01/22/2024 12:30 PM EST Office Visit Neurosurgery at [facility] 10 [place] [address] Hema Escalante MD 10 [facility] [place] [address] Liudmila Oates PA 10 [facility] [place] [address] 02/01/2024 12:00 PM EST Office [place] [phone] Georgette Monae PA [facility] [place] [address] 05/30/2024 10:30 AM EDT Appointment [place] [address] documented as of this encounter Goals Goal Patient Goal Type Associated Problems Recent Progress Patient-Stated? Author prevention of MS relapse Patient Facing Action Plan Dionicio Almeida, [facility] documented as of this encounter Visit Diagnoses Not on filedocumented in this encounter Care Teams Drop Wire Hanger Relationship Specialty Start Date End Date Lamont Owusu MD [address] [place] [address] PCP - General Family Medicine 02/10/21 documented as of this encounter
--- OUTSIDE RECORDS SUMMARY | 2024-01-15 20:03 | XMS_ITS | Encounter Summary ---
Author Organization [facility] Address [facility] [place] [address] Care Team Providers Care Beet End Supervisor Name Role Phone Lamont Owusu MD Primary Care Provider [phone] Encounter Details Date Type Department Care Team (Late st Contact Info) Description 11/01/2021 [place] [address] Erick York III, MD [facility] [place] [address] Social History Tobacco Use Types Packs/Day Years [...] 1:00 PM EST Office Visit Urology at [facility] [address] [place] [phone] Desean Coronado MD [facility] [place] [address] 01/22/2024 12:30 PM EST Office Visit Neurosurgery at [facility] [place] [address] Hema Escalante MD [address] [place] [address] [place] [address] 02/01/2024 12:00 PM EST Office [place] [phone] Georgette Monae PA [facility] [place] [address] 05/30/2024 10:30 AM EDT Appointment [place] [phone] documented as of this encounter Goals Goal Patient Goal Type Associated Problems Recent Progress Patient-Stated? Author prevention of MS relapse Patient Facing Action Plan Dionicio Almeida, [facility] documented as of this encounter Visit Diagnoses Not on filedocumented in this encounter Care Teams Beet End Supervisor Relationship Specialty Start Date End Date Lamont Owusu MD [address] [place] [address] PCP - General Family Medicine 02/10/21 documented as of this encounter
--- OUTSIDE RECORDS SUMMARY | 2024-01-15 20:03 | XMS_ITS | Encounter Summary ---
Author Organization [facility] [place] [address] Care Team Providers Care Floor Layer Apprentice Name Role Phone Rodriguez Roberts MD Primary Care Provider [phone] Encounter Details Date Type Department Care Team (Late st Contact Info) Description 07/29/2020 [place] [address] Erick York III, MD [facility] [place] [address] Social History Tobacco Use Types Packs/Day Years [...] encounter Miscellaneous Notes * Telephone Encounter - Octavio Yanes RPH - 07/29/2020 12:29 PM EDT Erick is past due for refill of Tecfidera. Pending rx accordingly. documented in this encounter Plan of Treatment Upcoming Encounters Date Type Department Care Team (Late st Contact Info) Description 01/19/2024 1:00 PM EST Office Visit [facility] at [facility] [address] [place] [phone] Desean Coronado MD [facility] [place] [address] 01/22/2024 12:30 PM EST Office Visit Neurosurgery at [facility] 10 [place] [address] Hema Escalante MD 10 [facility] [place] [address] Liudmila Oates PA 10 [facility] [place] [address] 02/01/2024 12:00 PM EST [place] [address] Georgette Monae PA [facility] [place] [address] 05/30/2024 10:30 AM EDT Appointment [place] [phone] documented as of this encounter Visit Diagnoses Not on filedocumented in this encounter Care Teams Floor Layer Apprentice Relationship Specialty Start Date End Date Rodriguez Roberts MD [address] [facility] [place] [address] PCP - General 11/15/13 02/09/21 documented as of this encounter
--- OUTSIDE RECORDS SUMMARY | 2024-01-15 20:03 | XMS_ITS | Encounter Summary ---
Author Organization [facility] [place] [address] Care Team Providers Care Skidder Loader Name Role Phone Rodriguez Roberts MD Primary Care Provider [phone] Encounter Details Date Type Department Care Team (Late st Contact Info) Description 12/13/2019 [place] [address] Erick York III, MD [facility] [place] [address] Social History Tobacco Use Types Packs/Day Years [...] Telephone Encounter - Octavio Yanes RPH - 12/13/2019 2:06 PM EDT Patient would like to fill Tecfidera through [facility]. Pended accordingly. He only has3 days left documented in this encounter Plan of Treatment Upcoming Encounters Date Type Department Care Team (Late st Contact Info) Description 01/19/2024 1:00 PM EST Office Visit Urology at [place] [facility] [address] [place] [phone] Desean Coronado MD [facility] [place] [address] 01/22/2024 12:30 PM EST Office Visit Neurosurgery at [facility] 10 [place] [address] Hema Escalante MD [address] [facility] [place] [address] Liudmila Oates PA 10 [facility] [place] [address] 02/01/2024 12:00 PM EST [place] [address] Georgette Monae PA [facility] [place] [address] 05/30/2024 10:30 AM EDT [place]oint[place] [phone] documented as of this encounter Visit Diagnoses Not on filedocumented in this encounter Care Teams Skidder Loader Relationship Specialty Start Date End Date Rodriguez Roberts MD [address] [facility] [place] [address] PCP - General 11/15/13 02/09/21 documented as of this encounter
--- OUTSIDE RECORDS SUMMARY | 2024-01-15 20:03 | XMS_ITS | Encounter Summary ---
Author Organization [facility] [address] Care Team Providers Care Stiff Leg Operator Name Role Phone Lamont Owusu MD Primary Care Provider [phone] Reason for Visit * Reason Comments Specialty Pharmacy Review Encounter Details Date Type Department Care Team (Late st Contact Info) Description 05/17/2021 Specialty Pharm[place] [phone] Dionicio Doherty [facility] Social History Tobacco Use Types [...] Progress Notes * Dionicio Doherty RPH - 05/17/2021 11:59 PM EDT [facility] has completed a benefits investigation for Erick Marylu Chacon to review their eligibility to fill at [facility]. Per patient's medication list they are prescribed Vumerity and the medication is able to be filled at the [facility]. documented in this encounter Plan of Treatment Upcoming Encounters Date Type Department Care Team (Late st Contact Info) Description 01/19/2024 1:00 PM EST Office Visit Urology at [place] [facility] [address] [place] [phone] Desean Coronado MD [facility] [place] [address] 01/22/2024 12:30 PM EST Office Visit Neurosurgery at [facility] 10 [place] [address] Hema Escalante MD [address] [facility] [place] [address] Liudmila Oates PA 10 [facility] [place] [address] 02/01/2024 12:00 PM EST Office [place] [address] Georgette Monae PA [facility] [place] [address] 05/30/2024 10:30 AM EDT Appointment [place] [address] documented as of this encounter Goals Goal Patient Goal Type Associated Problems Recent Progress Patient-Stated? Author prevention of MS relapse Patient Facing Action Plan Dionicio Almeida, [facility] documented as of this encounter Visit Diagnoses Not on filedocumented in this encounter Care Teams Stiff Leg Operator Relationship Specialty Start Date End Date Lamont Owusu MD [address] [place] [address] [address] PCP - General Family Medicine 02/10/21 documented as of this encounter
--- OUTSIDE RECORDS SUMMARY | 2024-01-15 20:03 | XMS_ITS | Encounter Summary ---
Author Organization [facility] Address [facility] [place] [address] Care Team Providers Care Business Analyst Manager Name Role Phone Rodriguez Roberts MD Primary Care Provider [phone] Reason for Visit * Reason Onset Date Comments Medication Refill 10/06/2020 Encounter Details Date Type Department Care Team (Late st Contact Info) Description 10/06/2020 [place] [address] Erick York III, MD [facility] [place] [address] Multiple sclerosis Social History Tobacco Use Types [...] encounter Miscellaneous Notes * Telephone Encounter - Kimberley Best RN - 10/07/2020 8:13 AM EDT surescript for baclofen last rx 11/2019 1 mo and 5 RF Last appt 07/08/20 Pt No Show - no pending appts - msg to guidance secretary documented in this encounter Plan of Treatment Upcoming Encounters Date Type Department Care Team (Late st Contact Info) Description 01/19/2024 1:00 PM EST Office Visit Urology at [place] [address] [place] [phone] [facility] [place] [address] 01/22/2024 12:30 PM EST Office Visit Neurosurgery at [facility] 10 [place] [address] Hema Escalante MD 10 [facility] [place] [address] Liudmila Oates PA 10 [facility] [place] [address] 02/01/2024 12:00 PM EST [place] [phone] [facility] [place] [address] 05/30/2024 10:30 AM EDT [place] [address] documented as of this encounter Visit Diagnoses Diagnosis Multiple sclerosis documented in this encounter Care Teams Business Analyst Manager Relationship Specialty Start Date End Date Rodriguez Roberts MD [address] [place] [address] PCP - General 11/15/13 02/09/21 documented as of this encounter
--- OUTSIDE RECORDS SUMMARY | 2024-01-15 20:03 | XMS_ITS | Encounter Summary ---
Author Organization [facility] Address [facility] [place] [address] Care Team Providers Care Flour Broker Name Role Phone Lamont Owusu MD Primary Care Provider [phone] Reason for Visit * Reason Onset Date Comments Other 02/09/2021 Encounter Details Date Type Department Care Team (Late st Contact Info) Description 02/09/2021 Tele[place] [phone] Erick York III, MD [facility] [place] [address] Other Social History Tobacco Use Types Packs/Day [...] Telephone Encounter - Audrey Lucas RN - 02/11/2021 8:46 AM EST PA has been approved per [facility]. * Telephone Encounter - Audrey Caldwell RN - 02/09/2021 11:16 AM EST forwarded to Kayce Ramos at [facility] who has been working on PA * Telephone Encounter - Vanessa Mora - 02/09/2021 11:06 AM EST Call Center / Facility Operations Manager Message - General Issue Call Provider patient sees in Clinic: Jaylen Caller and relationship (if other than patient-full name): [employer] and position if other than patient or family: [employer]- [place] Medicaid Pharmacy Benefits Call back number: [phone], ask for Mercedes Ok to leave a message: no Reason for call: [employer] called today, return Dr. York's call. She states that he asked her to fax over a determination for an appealed PA but her team works remotely and does not have a fax machine. Someone will be able to fax on 02/11. Please return Mercedes's call Disposition of Call (choose one and remove others): ??? Routine Message sent to the Nurse: yes Nurse/Facility Operations Manager contacted via: Message: y Call: n Pager: n documented in this encounter Plan of Treatment Upcoming Encounters Date Type Department Care Team (Late st Contact Info) Description 01/19/2024 1:00 PM EST Office Visit Urology at [place] [facility] [address] [place] [phone] Desean Coronado MD [facility] [place] [address] 01/22/2024 12:30 PM EST Office Visit Neurosurgery at [facility] 10 [facility] [place] [phone] Hema Escalante MD [address] [address] [place] [address] 02/01/2024 12:00 PM EST Office [place] [phone] Georgette Monae PA [facility] [place] [address] 05/30/2024 10:30 AM EDT Appointment [place] [phone] documented as of this encounter Goals Goal Patient Goal Type Associated Problems Recent Progress Patient-Stated? Author prevention of MS relapse Patient Facing Action Plan Dionicio Almeida, [facility] documented as of this encounter Visit Diagnoses Not on filedocumented in this encounter Care Teams Flour Broker Relationship Specialty Start Date End Date Lamont Owusu MD [facility] [address] [place] [address] PCP - General Family Medicine 02/10/21 documented as of this encounter
--- OUTSIDE RECORDS SUMMARY | 2024-01-15 20:03 | XMS_ITS | Encounter Summary ---
Author Organization [facility] Address [facility] [place] [address] Care Team Providers Care Inspector Metal Fabricating Name Role Phone Lamont Owusu MD Primary Care Provider [phone] Reason for Visit * Reason Comments Medication Refill Encounter Details Date Type Department Care Team (Late st Contact Info) Description 05/15/2021 [place] [address] Erick York III, MD [facility] [place] [address] Multiple sclerosis Social History Tobacco Use Types [...] Office Visit Urology at [facility] [address] [place] [phone] Desean Coronado MD [facility] [place] [address] 01/22/2024 12:30 PM EST Office Visit Neurosurgery at [facility] [address] [place] [address] Hema Escalante MD [address] [place] [address] Liudmila Oates PA [facility] [place] [address] 02/01/2024 12:00 PM EST [place] [phone] Georgette Moane PA [facility] [place] [address] 05/30/2024 10:30 AM EDT [place]ointment [place] [phone] documented as of this encounter Goals Goal Patient Goal Type Associated Problems Recent Progress Patient-Stated? Author prevention of MS relapse Patient Facing Action Plan Dionicio Almeida, [facility] documented as of this encounter Visit Diagnoses Diagnosis Multiple sclerosis documented in this encounter Care Teams Inspector Metal Fabricating Relationship Specialty Start Date End Date Lamont Owusu MD [address] [place] [address] PCP - General Family Medicine 02/10/21 documented as of this encounter
--- OUTSIDE RECORDS SUMMARY | 2024-01-15 20:03 | XMS_ITS | Encounter Summary ---
Author Organization [facility] Address [facility] [place] [address] Care Team Providers Care Cardiology Tech Name Role Phone Rodriguez Roberts MD Primary Care Provider [phone] Reason for Visit * Reason Onset Date Comments Appointment 10/07/2020 Encounter Details Date Type Department Care Team (Late st Contact Info) Description 10/07/2020 [place] [phone] Erick York III, MD [facility] [place] [address] Appointment Social History Tobacco Use Types Packs/Day [...] * Telephone Encounter - Babs Perry - 10/07/2020 11:01 AM EDT Scheduling Instructions Provider: migdalia Visit Type: fuv Appt Note: ms fuv Additional Info Needed: documented in this encounter Plan of Treatment Upcoming Encounters Date Type Department Care Team (Late st Contact Info) Description 01/19/2024 1:00 PM EST Office Visit [facility] at [facility] [address] [place] [phone] Desean Coronado MD [facility] [address] 01/22/2024 12:30 PM EST Office Visit Neurosurgery at [facility] 10 [place] [address] Hema Escalante MD [address] [facility] [place] [address] Liudmila Oates PA 10 [facility] [place] [address] 02/01/2024 12:00 PM EST [place] [address] Georgette Monae PA [facility] [place] [address] 05/30/2024 10:30 AM EDT [place]oint[place] [address] documented as of this encounter Visit Diagnoses Not on filedocumented in this encounter Care Teams Cardiology Tech Relationship Specialty Start Date End Date Rodriguez Roberts MD [address] [place] [address] PCP - General 11/15/13 02/09/21 documented as of this encounter
--- OUTSIDE RECORDS SUMMARY | 2024-01-15 20:03 | XMS_ITS | Encounter Summary ---
Author Organization [facility] Address [facility] [place] [place] [address] Care Team Providers Care Automotive Engineering Technician Name Role Phone Lamont Owusu MD Primary Care Provider [phone] Reason for Visit * Reason Onset Date Comments Bumped Appointment 04/22/2021 Encounter Details Date Type Department Care Team (Late Contact Info) Description 04/22/2021 [place] [address] Erick York III, MD [facility] [place] [address] Bumped Appointment Social History Tobacco Use Types Packs/Day [...] * Telephone Encounter - Babs Perry - 04/22/2021 2:53 PM EST Patient's appointment with Dr. York on 04/29 requires rescheduling. documented in this encounter Plan of Treatment Upcoming Encounters Date Type Department Care Team (Late st Contact Info) Description 01/19/2024 1:00 PM EST Office Visit Urology at [facility] [address] [place] [phone] Desean Coronado MD [facility] [place] [address] 01/22/2024 12:30 PM EST Office Visit Neurosurgery at [facility] [address] [place] [address] Hema Escalante MD [address] [place] [address] Liudmila Oates PA [address] [place] [address] 02/01/2024 12:00 PM [place] [address] Georgette Monae PA [facility] [place] [address] 05/30/2024 10:30 AM EDT [place] [phone] documented as of this encounter Goals Goal Patient Goal Type Associated Problems Recent Progress Patient-Stated? Author prevention of MS relapse Patient Facing Action Plan Dionicio Almeida, [facility] documented as of this encounter Visit Diagnoses Not on filedocumented in this encounter Care Teams Automotive Engineering Technician Relationship Specialty Start Date End Date Lamont Owusu MD [address] [place] [address] [address] [facility] [address] [place] [address] PCP - General Family Medicine 02/10/21 documented as of this encounter
--- OUTSIDE RECORDS SUMMARY | 2024-01-15 20:03 | XMS_ITS | Encounter Summary ---
Author Organization [facility] [place] [address] Care Team Providers Care Pitch Gatherer Name Role Phone Rodriguez Roberts MD Primary Care Provider [phone] Reason for Visit * Reason Comments Medication Management Prior Authorization Encounter Details Date Type Department Care Team (Late st Contact Info) Description 12/13/2019 Specialty [place] [phone] Octavio Yanes [facility] Social History Tobacco Use Types [...] this encounter Progress Notes * Octavio Yanes [facility] - 12/13/2019 3:24 PM EDT Specialty Pharmacy Consultation; Octavio Yanes [facility] Comprehensive Medication Management (CMM) Erick Chacon Diagnosis: MS Current Therapy Start Date: 05/2018 MS Diagnosis date (mm/yy): 03/2018 Prior MS therapy: none Contact in person or via telephone:telephone Mr. Erick Chacon is a 34 y.o. (1985) male who was contacted in regard to specialty medication. Spoke with patient regarding Tecfidera. A review of the medication therapy was performed. Themedication was Filled as scheduled, and all medication related questions and concerns were addressed. The specialty pharmacy staff will follow up with the patient 5-7 days prior to next refill. Is the patient willing to proceed with the Clinical Assessment? Yes Summary and Recommendations: Erick has been existing to therapy since 05/2018. He denies cramping, diarrhea, or constipation from Tecfidera but does flush. Symptoms start from legs and redness works its' way up. Symptoms onset approximately 10-50 minutes after dose and happens with more than half of the doses. No other reported side effects. Patient was seen in telehealth on 12/10 and recommendations were provided by Clinician to take withfood/peanut butter. Erick does feel like his side effects have improved. Erick had no further questions or concerns at this time. Clinic follow-up needed: no Allergies and Drug intolerance: No Known Allergies Problem List: Patient Active Problem List Diagnosis Code ??? Left lumbar radiculopathy M54.16 ??? Right lumbar radiculopathy M54.16 ??? Lower back pain M54.5 ??? 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 Abnormal MRI, spinal cord R90.89 ??? Multiple sclerosis G35 ??? Abnormal brain MRI R90.89 ??? Sensory impairment R44.8 ??? Lhermitte's sign positive R29.818 ??? Gait instability R26.81 ??? Thoracic disc herniation M51.24 Special Dietary or Hydration Requirements: no There is no height or weight on file to calculate BMI. Medication Reconciliation Discrepancies (compared to [facility] med list) no Medication Adherence Patient reported X missed doses in the last month: 0 Any gaps in refill history greater than 2 weeks in the last 3 months: no Informant: patient Reliability of informant: reliable Provider-estimated medication adherence level: 90-100% Reasons for non-adherence: no problems identified Adherence tools used: alarm Support network for adherence: family member Medication List: Current Outpatient Medications Medication Sig Dispense Refill ??? Tecfidera 240 mg Capsule, Delayed Release(E.C.) Take 240 mg by mouth 2 times daily. 60 capsule 5 ??? baclofen (Lioresal) 10 mg Tablet PO. 10mg AM, 10mg PM, 15-20mg in the evening. 120 tablet 5 ??? gabapentin (Neurontin) 100 mg Capsule PO. 2 tabs in AM, 2 tabs in PM, and 4 tabs nightly. 240 capsule 2 ??? topiramate (TOPAMAX) 50 mg Tablet Take 1 tablet by mouth nightly for 30 days. 30 tablet 3 ??? venlafaxine (EFFEXOR-XR) 150 mg Capsule, Sust. [...] needed for Pain. 60 tablet 0 ??? NIFEdipine (ADALAT CC) 30 mg Tablet Sustained Release Take 30 mg by mouth daily. ??? b complex vitamins Capsule Take 1 capsule by mouth daily. ??? methylphenidate (RITALIN) 20 mg Tablet Take 20 mg by mouth 3 times daily. 0 No current facility-administered medications for this visit. Most Recent Vitals: Ht Readings from Last 1 Encounters: 11/11/19 175.3 cm (5' 9) Wt Readings from Last 3 Encounters: 11/11/19 99.3 kg (219 lb) 10/26/18 103.8 kg (228 lb 12.8 oz) 09/03/18 99.8 kg (220 lb) Temp Readings from Last 3 Encounters: 04/07/18 36.6 ??C (97.9 ??F) (Oral) 12/01/15 36.7 ??C (98 ??F) 10/08/15 36.7 ??C (98 ??F) (Oral) BP Readings from Last 3 Encounters: 11/11/19 132/81 10/26/18 123/71 09/03/18 143/87 Pulse Readings from Last 3 Encounters: 11/11/19 75 10/26/18 75 09/03/18 74 Pertinent Lab values: Lab Results Component Value Date NA 139 04/05/2018 K 3.8 04/05/2018 CL 103 04/05/2018 CO2 27 04/05/2018 BUN 16 04/05/2018 CREATININE 0.76 (L) 04/05/2018 GLUCOSE 106 04/05/2018 CALCIUM 9.1 04/05/2018 Lab Results Component Value Date ALT 51 10/09/2018 AST 21 10/09/2018 ALKPHOS 70 10/09/2018 BILITOT 0.3 10/09/2018 BILIDIR 0.11 10/09/2018 ALBUMIN 4.0 10/09/2018 PROT 7.8 10/09/2018 Lab Results Component Value Date WBC 6.27 10/09/2018 HGB 15.1 10/09/2018 HCT 43.6 10/09/2018 MCV 83.8 10/09/2018 PLATELET 238 10/09/2018 No results found for: HA1C Immunization History Administered Date(s) Administered ??? Influenza PF, Split 12/01/2015 Assessment and Recommendations: Title Type of Medication Management: comprehensive medication review, chronic disease management Referred By: provider Recipient: beneficiary Provider: plan sponsor pharmacist Visit Type: [facility] Follow-up Method of Contact: by telephone Cognitive Ability: good Cognitive Impairment Status Verified this Year: no Patient Counseling Counseled the patient on the following: doses and administration discussed, safe handling, storage, and disposal discussed, possible adverse effects and management discussed, possible drug and prescription drug interactions discussed, possible drug and OTC drug and food interactions discussed, lab monitoring and follow-up discussed, therapeutic rationale discussed, cost of medications and cost implications discussed, adherence and missed doses discussed, pharmacy contact information discussed, health goals discussed, monitoring medication discussed, lifestyle modification education Drug Medication Management Summary Topics discussed: doses and administration discussed, safe handling, storage, and disposal discussed, possible adverse effects and management discussed, possible drug and prescription drug interactions discussed, possible drug and OTC drug and food interactions discussed, lab monitoring and follow-up discussed, therapeutic rationale discussed, cost of medications and cost implications discussed, adherence and missed doses discussed, pharmacy contact information discussed, health goals discussed, monitoring medication discussed, lifestyle modification education Number of adverse drug events identified: 1 Time spent: 31-45 min Treatment Outcomes 12/13/2019 1525 Disease progression: Stable Patient Overall Status: Stable Reviewed in detail with patient: Dose appropriateness [...] use oldest product first Relevant lab data Patient verbalizes understanding and is able to read-back instructions on self-administration/injection, proper storage, drug stability, importance of adherence and management strategies, side effectavoidance and mitigation strategies, and interruptions in therapy: Yes Physical and Cognitive Assessment: Functional limitations identified: no Cognitive limitations identified: no Concern regarding orientation/memory: no Concern with reasoning/judgement: no Is patient a fall risk: no Other needed information: no Social Assessment: Does the patient have a primary resident care supervisor? no Does the patient have an emergency contact on file: Yes Does patient need referral to bilingual social worker: No Does patient need referral to advocacy group: No Home Health Assessment: Is the patient in a safe home environment? Yes Is the patient able to store their medication as directed? Yes Does the patient have a support network at home? Yes Reviewed potential home safety hazards with patient: Yes Economic Assessment: Patient is agreeable to medication copay: yes Copay Amount: $3 Day Supply: 30 Date Needed: 12/14 Copay assistance required: no Therapy Assessment: Current Medication Dosing/Route/Frequency: Tecfidera 240mg by mouth twice daily Appropriate Therapy: Yes Effective: yes - Recent Relapses: 2019 Current pain rating (1-10): unreported Relapsing/Remitting Factors: bilateral leg, right arm, and neck numbness Patient-Reported Side Effects: yes - moderate flushing Occurrence of recent infections: no Patient Goals: Patient's specific desired goal: reduce risk for relapse and slow disease progression Measured by: MRI, symptom reports Time-frame to meet goal: ongoing Is the patient on track to achieve goals of therapy? yes Care Plan and Interventions: Care Plan Reviewed and Approved by both Pharmacist and Patient: Yes Did Care Plan Change? No Interventions (if applicable): No Patient experienced change in condition that affects treatment: no Additional care/services needed: no Educational information or adherence tools provided: Yes Additional equipment/supplies required: no Patient Counseling: Administration issues identified: no Pharmacist follow-up needed: No Patient Satisfaction with Care/Services Provided: Yes Informed patient of specialty pharmacy services: Yes -Patient received welcome packet: yes - Date Received: 12/13/19 Delivery Method: mail -Patient returned signed Rights & Responsibilities: no Date Received: 12/13/19 Delivery Method: mail -Patient is aware a licensed pharmacist is available 24 hours a day, 7 days a week to discuss medication-related questions or concerns: Yes -Patient verbalizes understanding of education on the common side effect profile of the medication:Yes -The patient is able to call 911 or seek urgent care if signs/symptoms of allergy or harmful adverse reactions occur: Yes Patient understands no changes to current drug regimen were made at the appointment and that [facility] (summary located at top of note) for provider review and follow up. Octavio Yanes RPH 12/13/19 3:26 PM documented in this encounter Plan of Treatment Upcoming Encounters Date Type Department Care Team (Late st Contact Info) Description 01/19/2024 1:00 PM EST Office Visit Urology at [facility] [address] [place] [phone] Desean Coronado MD [facility] [place] [address] 01/22/2024 12:30 PM EST Office Visit Neurosurgery at [facility] [address] [facility] [place] [address] Hema Escalante MD [address] [facility] [place] [address] Liudmila Oates PA [address] [facility] [address] 02/01/2024 12:00 PM EST Office [place] [address] Georgette Monae PA [facility] [place] [address] 05/30/2024 10:30 AM EDT Appointment [place] [phone] documented as of this encounter Visit Diagnoses Not on filedocumented in this encounter Care Teams Pitch Gatherer Relationship Specialty Start Date End Date Rodriguez Roberts MD [address] [place] [address] PCP - General 11/15/13 02/09/21 documented as of this encounter
--- OUTSIDE RECORDS SUMMARY | 2024-01-15 20:03 | XMS_ITS | Encounter Summary ---
Author Organization [facility] Address [facility] [place] [place] [address] Care Team Providers Care Forge Shop Machine Repairer Name Role Phone Lamont Owusu MD Primary Care Provider [phone] Reason for Visit * Reason Onset Date Comments Medication Refill 02/23/2022 Encounter Details Date Type Department Care Team (Late st Contact Info) Description 02/23/2022 [place] [address] Erick York III, MD [facility] [place] [address] Social History Tobacco Use Types Packs/Day Years [...] Telephone Encounter - Kimberley Best RN - 02/25/2022 1:51 PM EST Last appt 01/2021 FUV was to have been 03/2021 - no pending FUV Surescript request for Vumerity Last rx sent to pharmacy - this is request for local pharmacy Msg to secretary to the vice president as pt needs to be sched for FUV rx repped for 1 mo and no RF and forwarded to Dr. York Last rx Dose: 2 capsule Route: Oral Frequency: 2 TIMES DAILY Dispense Quantity: 120 capsule Refills: 5 ?? Sig: Take 2 capsules by mouth 2 times daily. ?? Start Date: 11/01/21 End Date: -- Written Date: 11/01/21 Expiration Date: -- Original Order: diroximel fumarate (Vumerity) 231 mg Capsule, Delayed Release(E.C.) [[id number]] Providers Ordering and Authorizing Provider: Erick York III, MD documented in this encounter Plan of Treatment Upcoming Encounters Date Type Department Care Team (Late st Contact Info) Description 01/19/2024 1:00 PM EST Office Visit Urology at [facility] [address] [address] Desean Coronado MD [facility] [place] [address] 01/22/2024 12:30 PM EST Office Visit Neurosurgery at [facility] [place] [address] Hema Escalante MD [facility] [place] [address] Liudmila Oates PA [facility] [place] [address] 02/01/2024 12:00 PM EST [place] [phone] Georgette Monae PA [facility] [place] [address] 05/30/2024 10:30 AM EDT [place]ointment [place] [address] documented as of this encounter Goals Goal Patient Goal Type Associated Problems Recent Progress Patient-Stated? Author prevention of MS relapse Patient Facing Action Plan Dionicio Almeida, [facility] documented as of this encounter Visit Diagnoses Not on filedocumented in this encounter Care Teams Forge Shop Machine Repairer Relationship Specialty Start Date End Date Lamont Owusu MD [address] [place] [address] PCP - General Family Medicine 02/10/21 documented as of this encounter
--- OUTSIDE RECORDS SUMMARY | 2024-01-15 20:03 | XMS_ITS | Encounter Summary ---
Author Organization [facility] Address [facility] [place] [address] Care Team Providers Care Baker Biscuit Name Role Phone Rodriguez Roberts MD Primary Care Provider Reason for Visit * Reason Onset Date Comments Medication Refill 04/29/2020 Encounter Details Date Type Department Care Team (Late st Contact Info) Description 04/29/2020 [place] [address] Erick York III, MD [facility] [place] [address] Multiple sclerosis Social History Tobacco Use Types [...] 1:00 PM EST Office Visit Urology at [facility] [address] [place] [phone] Desean Coronado MD [facility] [place] [address] 01/22/2024 12:30 PM EST Office Visit Neurosurgery at [facility] [address] [place] [address] Hema Escalante MD [address] [place] [address] Liudmila Oates [place] [address] 02/01/2024 12:00 PM EST [place] [phone] Georgette Monae PA [facility] [place] [address] 05/30/2024 10:30 AM EDT [place] [phone] documented as of this encounter Visit Diagnoses Diagnosis Multiple sclerosis documented in this encounter Care Teams Baker Biscuit Relationship Specialty Start Date End Date Rodriguez Roberts MD [address] [place] [address] PCP - General 11/15/13 02/09/21 documented as of this encounter
--- OUTSIDE RECORDS SUMMARY | 2024-01-15 20:03 | XMS_ITS | Encounter Summary ---
Author Organization [facility] Address [facility] [place] [address] Care Team Providers Care Theater Manager Name Role Phone Lamont Owusu MD Primary Care Provider [phone] Encounter Details Date Type Department Care Team (Late st Contact Info) Description 10/14/2021 [place] [address] Dionicio Doherty, [facility] Social History Tobacco [...] 1:00 PM EST Office Visit Urology at [facility] [address] [place] [phone] Desean Coronado MD [facility] [place] [address] 01/22/2024 12:30 PM EST Office Visit Neurosurgery at [facility] [place] [address] Hema Escalante MD [address] [place] [address] Liudmila Oates PA [facility] [address] 02/01/2024 12:00 PM EST [place] [phone] Georgette Monae PA [facility] [place] [address] 05/30/2024 10:30 AM EDT [place] [phone] documented as of this encounter Goals Goal Patient Goal Type Associated Problems Recent Progress Patient-Stated? Author prevention of MS relapse Patient Facing Action Plan Dionicio Almeida, [facility] documented as of this encounter Visit Diagnoses Not on filedocumented in this encounter Care Teams Theater Manager Relationship Specialty Start Date End Date Lamont Owusu MD [address] [place] [address] PCP - General Family Medicine 02/10/21 documented as of this encounter
--- OUTSIDE RECORDS SUMMARY | 2024-01-15 20:04 | XMS_ITS | Encounter Summary ---
Author Organization [facility] [place] [address] Care Team Providers Care Internal Carver Name Role Phone Rodriguez Roberts MD Primary Care Provider [phone] Encounter Details Date Type Department Care Team (Late st Contact Info) Description 07/18/2018 [place] [address] Erick York III, MD [facility] [place] [address] Social History Tobacco Use Types Packs/Day Years Used Date Smoking Tobacco: Some Days Cigarettes Smokeless Tobacco: Never Alcohol Use Standard Drinks/Week Comments Not Currently 0 (1 standard drink = 0.6 oz pur e alcohol) Sex and Gender Information Value Date Recorded Sex Assigned at Male 06/03/2020 7:58 PM EDT Gender Identity Male 02/26/2022 11:00 AM EST Sexual Orientation Straight 06/03/2020 7: 58 PM EDT documented as of this encounter Miscellaneous Notes * Telephone Encounter - Zahra David RN - 07/18/2018 11:09 AM EDT Received call from Deja at [facility]. She called to find out if the patient is still taking his Tecfidera as they have only filled this once and they have been unable to reach him to fill this again. Explained that the patient is being seen in clinic today and we will know after that visit what the plan is. She gave the pharmacy phone number for the patient to call to set up shipment if he is to continue on the tecfidera that is [phone]. documented in this encounter Plan of Treatment Upcoming Encounters Date Type Department Care Team (Late st Contact Info) Description 01/19/2024 1:00 PM EST Office Visit Urology at [facility] [address] [place] [phone] Desean Coronado MD [facility] [place] [address] 01/22/2024 12:30 PM EST Office Visit Neurosurgery at [facility] [address] [place] [address] Hema Escalante MD [address] [place] [address] Liudmila Oates PA [address] [place] [address] 02/01/2024 12:00 PM EST [place] [address] Georgette Monae PA [facility] [place] [address] 05/30/2024 10:30 AM EDT [place]oint[place] [phone] documented as of this encounter Visit Diagnoses Not on filedocumented in this encounter Care Teams Internal Carver Relationship Specialty Start Date End Date Rodriguez Roberts MD [address] [place] [address] PCP - General 11/15/13 02/09/21 documented as of this encounter
--- OUTSIDE RECORDS SUMMARY | 2024-01-15 20:04 | XMS_ITS | Encounter Summary ---
Author Organization [facility] Address [facility] [place] [address] Care Team Providers Care Elevator Repairer Helper Name Role Phone Rodriguez Roberts MD Primary Care Provider [phone] Encounter Details Date Type Department Care Team (Late st Contact Info) Description 10/26/2018 3:00 PM EDT [place] [address] Erick York III, MD [facility] [place] [address] Multiple sclerosis; Neuropathic pain; Depression, unspecified depression type Social History Tobacco Use Types Packs/Day Years [...] Sign Reading Time Taken Comments Blood Pressure 123/71 10/26/2018 2:46 PM EDT Pulse 75 10/26/2018 2:46 PM EDT Temperature - - Respiratory Rate - - Oxygen Saturation - - Inhaled Oxygen Concentration - - Weight 103.8 kg (228 lb 12. 8 oz) 10/26/2018 2:46 PM EDT With shoes Height 175.3 cm (5' 9) 10/26/2018 2:46 PM EDT Reported Body Mass Index 33.79 10/26/2018 2:46 PM EDT documented in this encounter Patient Instructions * Patient Instructions* Erick York III, MD - 10/26/2018 3:00 PM EDT Continue on Tecfidera: set a timer/alert on your phone to space the doses by 12 hours. Increase baclofen to 10mg in the AM, 10mg PM, and 15-20mg in the evening. You stopped taking nortriptyline. Start taking Cymbalta 20mg daily for depression and neuropathic pain. I will see you back in clinic in 3 months to see how you are doing. Quit smoking. Try to increase your exercise as this will help with sleep, mood, and fatigue. Erick York III, MD documented in this encounter Progress Notes * Erick York III, MD - 10/26/2018 3:00 PM EDT [facility] Sclerosis [facility] Follow-up Visit Dear Rodriguez Roberts MD, I saw Erick Marylu Chacon in clinic today in follow-up for newly diagnosed MS. He was unaccompanied at today's visit. Below is my progress note with impression and plan. Please do not hesitate to callwith any questions. Appointment time: 3:00 - 3:28 (28 minutes) DISEASE SUMMARY: Principal neurologic diagnosis: MS Onset: 2019 Diagnosis of MS: 03/2018 CSF: 13 OCBs, normal IgG index, normal cell# and protein Disease course at onset: relapsing Current disease course: relapsing Relapses: 2019 - bilateral leg, R arm and neck numbness EDSS (today): between 2-4.5 MS Severity Score (EDSS and Disease Duration): too early myD-H Multiple Sclerosis 08/25/2014 07/18/2018 09/27/2018 Audit Sub Scores - - 1 (Low Risk) Pain Typical 8 7 5 Pain Now 7 4 2 Pain at Rest 3 5 2 Pain with Activity 10 10 7 PHQ-9 Depression - 12 (Moderate Depression) 15 (Moderately Severe Depression) MSIS-29 - 93 104 Treatment History Previous disease therapies: none Current disease therapies: Tecfidera (May 2018) Imaging History Most recent MRI brain: 10/26/2018 Most recent MRI cervical spine: 10/26/2018 Most recent MRI thoracic spine: 04/04/2018 Medication-related monitoring: see below Interval History: Erick was last seen in clinic on July 18, 2018. At that time he did not report any new neurologicalsymptoms concerning for relapse. He continued on Tecfidera, but had significant flushing medicationreaction. I advised him to try taking aspirin twice daily prior to each dose. I advised him to increase his baclofen dosing from 10 mg 3 times daily to 10 mg in the morning, 10 mg in the afternoon, and 20 mg nightly. Today, and he denies any new neurological symptoms consistent with an MS relapse. He continues to have flushing medication reaction secondary to Tecfidera despite taking aspirin prior to each dose and eating fatty food prior to each Tecfidera dose. He still would rather continue on Tecfidera then switch to an alternative therapy. MS Symptom Review: Mood: He is being referred for psychological counseling due to his depression. He has rare suicidalideation, without intent or plan. Spasms/spasticity: Continues to have muscle spasms primarily in the evening. He is taking baclofen 10 mg 3 times daily. He never increase the dose to 10 mg in the morning, 10 mg in the afternoon, and20 mg nightly as discussed at his last appointment in June. Neuropathic pain: He reports intermittent shooting pain on the left side of his head starting in the neck. There are no clear provoking factors. He is currently taking gabapentin 100 mg 3 times daily, previously on 900 mg 3 times daily but had to reduce dose due to sedation. Walking: Stable-he reports difficulty with walking more than 0.5mile due to balance difficulties - he has started to use a cane for longer walks/hikes. Turning quickly can worsen his balance Bladder: On tamsulosin 0.4 mg daily for neurogenic bladder Bowel: none Current Medications: reviewed and updated in EMR Review of Systems A ROS was obtained and reviewed with the patient. Pertinent positives and negatives were included in the HPI. Physical Examination Most Recent Vitals: 10/26/18 1446 BP: 123/71 Pulse: 75 Hair, skin, nails, and joints were normal. Neck was supple without Lhermitte???s phenomenon. He was alert and oriented to person, place, and time with normal language, attention and concentration, recent and remote memory, praxis, and intellectual function. Mood was euthymic. Affect was congruent. Ocular ductions were full without nystagmus. Facial sensation was normal. Muscles of facial expression moved normally. Hearing was normal. Palatal movements were normal. Trapezius power and tongue movements were normal. There was no dysarthria. Motor tone was increased in the RLE. There was no pronator drift. Upper extremities (R/L) Coordinator Of Genetic Services 5/5 Finger abduction 5/5 Finger extension 5/5 Wrist extension 5/5 Elbow flexion 5/5 Elbow extension 5/5 Shoulder abduction 5/5 Lower extremities (R/L) Hip flexion 5/5 Knee extension 5/5 Knee flexion 5/5 Ankle plantarflexion 5/5 Ankle dorsiflexion 5/5 Deep tendon reflexes (R/L): Biceps 2+/2+ Triceps 2+/2+ Knees 3+/3+ Ankles 3+/3+ Temperature sensation was decreased in the LLE. Vibratory sensation was slightly reduced in the LLEto about 6 seconds at the feet Negative Romberg. No dysmetria with [id number] testing bilaterally. Finger tapping was slowed on the R fast on the L and accurate bilaterally. Standard gait was normal. Timed 25-foot walk (sec): 4.0 - stable Assistive device: none. QUANTITATIVE SCORES: Vision 0 Brainstem 0 Pyramidal 1 Cerebellar 0 Sensory 2 B&B 1 Cerebral 0 Ambulation 1 EDSS 2.0 REVIEW OF IMAGING STUDIES: MRI brain and cervical spine wwo contrast 10/26/2018 -stable, no new lesions REVIEW OF LABORATORY STUDIES: Assessment: ICD-10-CM 1. Multiple sclerosis G35 baclofen (LIORESAL) 10 mg Tablet 2. Neuropathic pain M79.2 DULoxetine (CYMBALTA) 20 mg Capsule, Delayed Release(E.C.) 3. Depression, unspecified depression type F32.9 DULoxetine (CYMBALTA) 20 mg Capsule, Delayed Release(E.C.) Erick Chacon is a 32 y.o. man with recent diagnosis of relapsing multiple sclerosis with activity (March 2018) who was started on Tecfidera in May 2018. He continues to have side effects of flushing since starting Tecfidera 240 mg twice daily despite taking aspirin prior to each dose. Heis not always taking the dose 12 hours apart which may be contributing to some of the side effects.I recommend that he start taking Tecfidera closer to 12 hours apart. Regardless, he reports that should his flushing side effects continue acute rather stay on Tecfidera than switch to an alternate disease modifying therapy. Laboratory monitoring on Tecfidera has been within normal limits-last completed 10/09/2018. His neurological examination has remained stable including time 25 Foot Walk. He does have significant disability related to his ambulation secondary to imbalance which is likely related to his sensory deficit in his feet from his prior spinal cord lesions. Due to this he requires using a cane whenwalking more than several blocks. He never increased his baclofen dosing as discussed as his last appointment. Therefore I recommend that he start doing this at this time: Baclofen 10 mg in the morning, 10 mg in the afternoon, and 20mg nightly. For his worsening depression and neuropathic pain we will have him try Cymbalta 20 mg daily. He is also scheduled to start counseling therapy in the near future. Monitoring Plan: 1. Repeat MRI scan of the brain in 6 months 2. CBC with differential and LFTs today every 3 months after starting Tecfidera Treatment Plan: 1. Continue on Tecfidera 240 mg twice daily 2. Start Cymbalta 20 mg daily 3. Take Tecfidera approximately 30 minutes after eating. Take aspirin 81 mg approximately 1 hour prior to each dose 4. Increase baclofen to 10 mg in a.m., 10 mg early p.m., and 20 mg nightly 5. Continue tamsulosin 0.4 mg daily 6. Recommend regular exercise Follow-Up: 3 months Thank you for allowing us to participate in [facility]. If you have questions or concerns please do not hesitate to call our clinic at [phone]. Erick York III, MD Wrap Yarn Sorter of Neurology Multiple S[facility] More than 50% of this 28 minute [id number] interaction was spent in counseling on diagnosis, prognosis, and medication and symptom management. 12:16 PM 10/29/2018 documented in this encounter Plan of Treatment Upcoming Encounters Date Type Department Care Team (Late st Contact Info) Description 01/19/2024 1:00 PM EST Office Visit Urology at [facility] [address] [place] [phone] Desean Coronado MD [facility] [place] [address] 01/22/2024 12:30 PM EST Office Visit Neurosurgery at [facility] [address] [place] [address] Hema Escalante MD [address] [facility] [place] [address] Liudmila Oates PA [address] [facility] [place] [address] 02/01/2024 12:00 PM EST [place] [address] Georgette Monae PA [facility] [place] [address] 05/30/2024 10:30 AM EDT [place] [address] documented as of this encounter Visit Diagnoses Diagnosis Multiple sclerosis Neuropathic pain Neuralgia, neuritis, and radiculitis, unspecified Depression, unspecified depression type documented in this encounter Care Teams Elevator Repairer Helper Relationship Specialty Start Date End Date Rodriguez Roberts MD [address] [place] [address] PCP - General 11/15/13 02/09/21 documented as of this encounter
--- OUTSIDE RECORDS SUMMARY | 2024-01-15 20:04 | XMS_ITS | Encounter Summary ---
Author Organization [facility] Address [facility] [place] [address] Care Team Providers Care Wrapper Hands Sprayer Name Role Phone Rodriguez Roberts MD Primary Care Provider [phone] Reason for Visit * Reason Onset Date Comments TeleHealth 12/10/2019 apt 12/10 Encounter Details Date Type Department Care Team (Late st Contact Info) Description 12/10/2019 [place] [address] Erick York III, MD [facility] [place] [address] TeleHealth (apt 12/10) Social History Tobacco Use Types Packs/Day Years [...] encounter Miscellaneous Notes * Telephone Encounter - Claudia Herman CCMA - 12/10/2019 3:48 PM EDT Unable to reach patient to review medications and allergies prior to upcoming tele- appointment scheduled with Neurology provider. documented in this encounter Plan of Treatment Upcoming Encounters Date Type Department Care Team (Late st Contact Info) Description 01/19/2024 1:00 PM EST Office Visit Urology at [facility] [address] [place] [phone] Desean Coronado MD [facility] [place] [address] 01/22/2024 12:30 PM EST Office Visit [facility]surgery at [facility] [address] [place] [address] Hema Escalante MD [address] [facility] [place] [address] Liudmila Oates PA [address] [facility] [place] [address] 02/01/2024 12:00 PM EST [place] [address] Georgette Monae PA [facility] [place] [address] 05/30/2024 10:30 AM EDT [place] [address] documented as of this encounter Visit Diagnoses Not on filedocumented in this encounter Care Teams Wrapper Hands Sprayer Relationship Specialty Start Date End Date Rodriguez Roberts MD [address] [place] [address] PCP - General 11/15/13 02/09/21 documented as of this encounter
--- OUTSIDE RECORDS SUMMARY | 2024-01-15 20:04 | XMS_ITS | Encounter Summary ---
Author Organization [facility] [place] [address] Care Team Providers Care Equal Opportunity Officer Name Role Phone Rodriguez Roberts MD Primary Care Provider [phone] Reason for Referral * Consultation - Closed Specialty Diagnoses / Procedures Referred By Contac t Referred To Contact Neurosurgery Diagnoses Thoracic spinal stenosis T8-9 extruding disc with impression on the ventral aspect of the spinal cord Erick York III, MD [facility] [place] [address] [facility] [address] [place] [address] Referral ID Status Reason Start Date Expiration Date V isits Requested Visits Authorized [id number] Closed Consult, Test & Treat 12/04/2019 12/03/2020 1 1 Encounter Details Date Type Department Care Team (Late st Contact Info) Description 12/04/2019 Telephone [place] [address] Erick York III, MD [facility] [place] [address] Social History Tobacco Use Types Packs/Day Years [...] encounter Miscellaneous Notes * Telephone Encounter - Erick York III, MD - 12/04/2019 5:16 PM EDT Called Erick with MRI scan results. Continued abdominal and LE paresthesias. No change in functional ability compared to last visit. MRI showing T8-9 disc protrusion with impression on the spinal cord - similar to prior imaging. Will refer to neurosurgery for further evaluaiton. He is reporting headaches consistent with cluster-SUNCT - R sided radiating to behind the R eye lasting 30 seconds to a couple of minutes and occurring 2 days per week with some days having recurrentepisodes. Will start topamax 50mg nightly. Reviewed potential side effects including acute angle glaucoma, nephrolithiasis, sedation. Erick York III, MD documented in this encounter Plan of Treatment Upcoming Encounters Date Type Department Care Team (Late st Contact Info) Description 01/19/2024 1:00 PM EST Office Visit Urology at [facility] [address] [place] [phone] Desean Coronado MD [facility] [place] [address] 01/22/2024 12:30 PM EST Office Visit Neurosurgery at [facility] [address] [place] [address] Hema Escalante MD [facility] [address] Liudmila Oates PA [facility] [address] 02/01/2024 12:00 PM EST Office [place] [address] Georgette Monae PA [facility] [place] [address] 05/30/2024 10:30 AM EDT Appointment [place] [address] Scheduled Referrals Name Type Priority Associated Diagnoses Order Schedule Referral to Neurosurgery Outpatient Referral Routine Thoracic spinal stenosis Ordered: 12/04/2019 documented as of this encounter Visit Diagnoses Diagnosis Thoracic spinal stenosis Spinal stenosis of thoracic region Episodic cluster headache, not intractable Episodic cluster headache documented in this encounter Care Teams Equal Opportunity Officer Relationship Specialty Start Date End Date Rodriguez Roberts MD [address] [place] [address] PCP - General 11/15/13 02/09/21 documented as of this encounter
--- OUTSIDE RECORDS SUMMARY | 2024-01-15 20:04 | XMS_ITS | Encounter Summary ---
Author Organization [facility] Address [facility] [place] [address] Care Team Providers Care Inspector Glass Or Mirror Name Role Phone Rodriguez Roberts MD Primary Care Provider [phone] Reason for Visit * Reason Onset Date Comments Other 12/28/2018 Encounter Details Date Type Department Care Team (Late st Contact Info) Description 12/28/2018 [place] [phone] Erick York III, MD [facility] [place] [address] Other Social History Tobacco Use Types Packs/Day [...] Telephone Encounter - Audrey Lucas RN - 12/28/2018 1:09 PM EST My message sent to pt asking he call Deja at [employer]. * Telephone Encounter - [place] - 12/28/2018 11:49 AM EST Clinical Accounts Payable Specialist Message Call from Mail Order Pharmacy / Specialty Pharmacy Name of Pharmacy: [facility] Name of Caller:Deja Kidders role at pharmacy: Pharmacy Call back number: [phone] Any extension or option numbers to go with phone number: Mail Order Pharmacy / Specialty Pharmacy calling to: Alert that they have been unable to reach the patient regarding medication delivery Additional pharmacy questions requiring a nurse: Asks if the pt calls in about medication states that he will have to reach out to them to get set up. States been trying to reach pt. Confirmed numberand stated not in service. Disposition of call: ?? FYI message of mail order pharmacy inability to reach pt sent to nurse documented in this encounter Plan of Treatment Upcoming Encounters Date Type Department Care Team (Late st Contact Info) Description 01/19/2024 1:00 PM EST Office Visit Urology at [facility] [address] [place] [phone] Desean Coronado MD [facility] [place] [address] 01/22/2024 12:30 PM EST Office Visit Neurosurgery at [facility] [address] [place] [address] Hema Escalante MD [address] [facility] [place] [address] Liudmila Oates PA [address] [facility] [place] [address] 02/01/2024 12:00 PM EST [place] [address] Georgette Monae PA [facility] [place] [address] 05/30/2024 10:30 AM EDT Appointment [place] [address] documented as of this encounter Visit Diagnoses Not on filedocumented in this encounter Care Teams Inspector Glass Or Mirror Relationship Specialty Start Date End Date Rodriguez Roberts MD [address] [place] [address] PCP - General 11/15/13 02/09/21 documented as of this encounter
--- OUTSIDE RECORDS SUMMARY | 2024-01-15 20:04 | XMS_ITS | Encounter Summary ---
Author Organization [facility] [place] [address] Care Team Providers Care Intelligence Operations Name Role Phone Rodriguez Roberts MD Primary Care Provider [phone] Reason for Referral * Diagnostic Test (Routine) - Closed Specialty Diagnoses / Procedures Referred By Contac t Referred To Contact Radiology Diagnoses Multiple sclerosis Procedures MRI Thoracic Spine wwo Erick Gaffney III, MD [facility] [place] [address] [place] [address] Referral ID Status Reason Start Date Expiration Date V isits Requested Visits Authorized [id number] Closed Specialty Service Requested 11/12/2019 05/10/2020 1 1 * Diagnostic Test (Routine) - Closed Specialty Diagnoses / Procedures Referred By Contac t Referred To Contact Radiology Diagnoses Multiple sclerosis Procedures MRI Cervical Spine wwo Erick Gaffney III, MD [facility] [place] [address] [place] [address] Referral ID Status Reason Start Date Expiration Date V isits Requested Visits Authorized [id number] Closed Specialty Service Requested 11/12/2019 05/10/2020 1 1 Reason for Visit * Diagnostic Test (Routine) - Closed Specialty Diagnoses / Procedures Referred By Mallorie t Referred To Contact Radiology Diagnoses Multiple sclerosis Procedures MRI Thoracic Spine wwo Contrast Erick York III, MD [facility] [place] [address] [facility] [place] [address] Referral ID Status Reason Start Date Expiration Date V isits Requested Visits Authorized [id number] Closed Specialty Service Requested 11/12/2019 05/10/2020 1 1 Encounter Details Date Type Department Care Team (Latest Contact Info) Description 11/16/2019 12:57 PM EDT - 11/16/2019 11:59 PM EDT Hospital [place] [address] Erick York III, MD [facility] [place] [address] Multiple sclerosis Discharge Disposition: Home [...] Sig Dispensed Refills Start Date End Date diazePAM (VALIUM) 5 mg Tablet Take 1 [...] by mouth 3 times daily. 0 10/17/2014 venlafaxine (EFFEXOR-XR) 150 mg Capsule, Sust. Release 24 hr Take 150 mg by mouth daily. 09/14/2022 baclofen (Lioresal) 10 mg TabletIndications:Multi ple sclerosis PO. 10mg AM, 10mg PM, 15-20mg in the evening. 120 tablet 10/25/2019 12/11/2019 aspirin 325 mg Tablet Take 325 mg by mouth every 6 hours as needed for Pain. 01/11/2024 gabapentin (NEURONTIN) 100 mg Capsule Take 100 mg by mouth 3 times daily. 2 10/13/2018 12/11/2019 NIFEdipine (ADALAT CC) 30 mg Tablet Sustained Release Take 30 mg by mouth daily. 06/01/2020 documented as of this encounter Plan of Treatment Upcoming Encounters Date Type Department Care Team (Late st Contact Info) Description 01/19/2024 1:00 PM EST Office Visit Urology at [place] [facility] [address] [place] [phone] Desean Coronado MD [facility] [place] [address] 01/22/2024 12:30 PM EST Office Visit Neurosurgery at [facility] [address] [place] [address] Hema Escalante MD 10 [facility] [place] [address] Liudmila Oates PA 10 [facility] [place] [address] 02/01/2024 12:00 PM EST Office [place] [phone] Georgette Monae PA [facility] [place] [address] 05/30/2024 10:30 AM EDT Appointment [place] [phone] documented as of this encounter Procedures Procedure Name Priority Date/Time Associated Diagnosis Comments MRI THORACIC SPINE WITH/WO CONTRAST Routine 11/16/2019 2:31 PM EDT Multiple sclerosis MRI CERVICAL SPINE WITH/WO CONTRAST Routine 11/16/2019 2:31 PM EDT Multiple sclerosis documented in this encounter Results * MRI Thoracic Spine wwo Contrast (11/16/2019 2:31 PM EDT) Anatomical Region Laterality Modality T-spine Magnetic Resonan ce Impressions 11/16/2019 6:02 PM EDT No evidence for progression of the demyelination within the cervical or thoracic spinal cord. 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 Stability of a 3.8 cm T2 hyperintense structure within the right hilum going back to 2014. Thank you for letting us participate in the care of this patient. For questions regarding this report, please contact the number below. ? Narrative 11/16/2019 6:02 PM EDT EXAMINATION: MRI CERVICAL SPINE WWO CONTRAST, MRI THORACIC SPINE WWO CONTRAST CLINICAL HISTORY: Multiple sclerosis, monitor Other Pertinent Information TECHNIQUE: MRI of the cervical spine and thoracic was performed before and after the intravenous administration of 20cc Dotarem.Myelopathy protocol. COMPARISON: Cervical spine MRI 10/26/2018. MRI total spine 04/04/2018. FINDINGS: Cervical spine: Disc spaces and vertebral body heights are well-maintained. 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 No significant spinal canal narrowing. Several sites of signal alteration within the cervical cord most prominent at C5-C6 similar compared to prior examination. None of these sites enhance. Thoracic spine: Alignment is near anatomic. Disc [...] canal is patent. No new disc herniations. Stability of a nonenhancing right hilar T2 hyperintense structure measuring about 3.8 cm in size. The etiology for this is uncertain. Procedure Note Dannie Cintron MD - 11/16/2019 EXAMINATION: MRI CERVICAL SPINE WWO CONTRAST, MRI THORACIC SPINE WWOCONTRAST CLINICAL HISTORY: Multiple sclerosis, monitor Other Pertinent Information TECHNIQUE: MRI of the cervical spine and thoracic was performed before and afterthe intravenous administration of 20cc Dotarem.Myelopathy protocol. COMPARISON: Cervical spine MRI 10/26/2018. MRI total spine 04/04/2018. FINDINGS: Cervical spine: Disc spaces and vertebral body heights arewell-maintained. 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 No significant spinal canal narrowing. Several sites of signal alteration within the cervical cord most prominentat C5-C6 similar compared to prior examination. None of these sitesenhance. Thoracic spine: Alignment is near anatomic. Disc spaces and vertebralbody heights are well-maintained. The previously identified signal alterationwithin the right side of the cord at T9-T10 is not well visualized on thecurrent study. No new sites of thoracic spinal cord signal alteration. Stabilityof the right paracentral disc extrusion at T8-T9 that results in focal moderatespinal canal narrowing. Otherwise the spinal canal is patent. No new discherniations. Stability of a nonenhancing right hilar T2 hyperintense structuremeasuring about 3.8 cm in size. The etiology for this is uncertain. IMPRESSION No evidence for progression of the demyelination within the cervical orthoracic spinal cord. 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 Stability of a 3.8 cm T2 hyperintense structure within the right hilumgoing back to 2014. Thank you for letting us participate in the care of this patient. Forquestions regarding this report, please contact the number below. Erick York III, MD IMG MRI ORDERABLE S * MRI Cervical Spine wwo Contrast (11/16/2019 2:31 PM EDT) Anatomical Region Laterality Modality C-spine Magnetic Resonan ce Impressions 11/16/2019 6:02 PM EDT No evidence for progression of the demyelination within the cervical or thoracic spinal cord. 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 Stability of a 3.8 cm T2 hyperintense structure within the right hilum going back to 2014. Thank you for letting us participate in the care of this patient. For questions regarding this report, please contact the number below. ? Narrative 11/16/2019 6:02 PM EDT EXAMINATION: MRI CERVICAL SPINE WWO CONTRAST, MRI THORACIC SPINE WWO CONTRAST CLINICAL HISTORY: Multiple sclerosis, monitor Other Pertinent Information TECHNIQUE: MRI of the cervical spine and thoracic was performed before and after the intravenous administration of 20cc Dotarem.Myelopathy protocol. COMPARISON: Cervical spine MRI 10/26/2018. MRI total spine 04/04/2018. FINDINGS: Cervical spine: Disc spaces and vertebral body heights are well-maintained. 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 No significant spinal canal narrowing. Several sites of signal alteration within the cervical cord most prominent at C5-C6 similar compared to prior examination. None of these sites enhance. Thoracic spine: Alignment is near anatomic. Disc [...] canal is patent. No new disc herniations. Stability of a nonenhancing right hilar T2 hyperintense structure measuring about 3.8 cm in size. The etiology for this is uncertain. Procedure Note Dannie Cintron MD - 11/16/2019 EXAMINATION: MRI CERVICAL SPINE WWO CONTRAST, MRI THORACIC SPINE WWOCONTRAST CLINICAL HISTORY: Multiple sclerosis, monitor Other Pertinent Information TECHNIQUE: MRI of the cervical spine and thoracic was performed before and afterthe intravenous administration of 20cc Dotarem.Myelopathy protocol. COMPARISON: Cervical spine MRI 10/26/2018. MRI total spine 04/04/2018. FINDINGS: Cervical spine: Disc spaces and vertebral body heights arewell-maintained. 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 No significant spinal canal narrowing. Several sites of signal alteration within the cervical cord most prominentat C5-C6 similar compared to prior examination. None of these sitesenhance. Thoracic spine: Alignment is near anatomic. Disc spaces and vertebralbody heights are well-maintained. The previously identified signal alterationwithin the right side of the cord at T9-T10 is not well visualized on thecurrent study. No new sites of thoracic spinal cord signal alteration. Stabilityof the right paracentral disc extrusion at T8-T9 that results in focal moderatespinal canal narrowing. Otherwise the spinal canal is patent. No new discherniations. Stability of a nonenhancing right hilar T2 hyperintense structuremeasuring about 3.8 cm in size. The etiology for this is uncertain. IMPRESSION No evidence for progression of the demyelination within the cervical orthoracic spinal cord. 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 Stability of a 3.8 cm T2 hyperintense structure within the right hilumgoing back to 2014. Thank you for letting us participate in the care of this patient. Forquestions regarding this report, please contact the number below. Erick York III, MD IMG MRI ORDERABLE S documented in this encounter Visit Diagnoses Diagnosis Multiple sclerosis documented in this encounter Administered Medications Inactive Administered Medications - up to 3 most recent administrations Medication Order MAR Action Action Date Dose Rate Site gadoterate meglumine (DOTAREM) 0.5 mmol/mL (376.9 mg/mL) injection 19.86 mL 19.86 mL (0.2 mL/kg/dose ? 99.3 kg), Intravenous, ONCE PRN, 1 dose, Starting on 11/16/19 at 1432, Until 11/16/19 at 1432, Per Protocol, Radiology Contrast, Routine Given 11/16/2019 2:32 PM EDT 20 mLs documented in this encounter Care Teams Intelligence Operations Relationship Specialty Start Date End Date Rodriguez Roberts MD [address] [place] [address] [address] [facility] [address] [place] [address] PCP - General 11/15/13 02/09/21 documented as of this encounter
--- OUTSIDE RECORDS SUMMARY | 2024-01-15 20:04 | XMS_ITS | Encounter Summary ---
Author Organization [facility] Address [facility] [place] [address] Care Team Providers Care Sr. Manager Name Role Phone Rodriguez Roberts MD Primary Care Provider [phone] Encounter Details Date Type Department Care Team (Late st Contact Info) Description 05/16/2018 [place] [address] Erick York III, MD [facility] [place] [address] Social History Tobacco Use Types Packs/Day Years Used Date Smoking Tobacco: Some Days Smokeless Tobacco: Never Alcohol Use Standard Drinks/Week [...] 1:00 PM EST Office Visit Urology at [place] [facility] [address] [place] [phone] Desean Coronado MD [facility] [place] [address] 01/22/2024 12:30 PM EST Office Visit Neurosurgery at [facility] [place] [address] Hema Escalante MD [address] [facility] [place] [address] Liudmila Oates PA [facility] [address] 02/01/2024 12:00 PM EST Office [place] [address] Georgette Monae PA [facility] [place] [address] 05/30/2024 10:30 AM EDT Appointment [place] [phone] documented as of this encounter Visit Diagnoses Not on filedocumented in this encounter Care Teams Sr. Manager Relationship Specialty Start Date End Date Rodriguez Roberts MD [address] [place] [address] PCP - General 11/15/13 02/09/21 documented as of this encounter
--- OUTSIDE RECORDS SUMMARY | 2024-01-15 20:04 | XMS_ITS | Encounter Summary ---
Author Organization [facility] Address [facility] [place] [address] Care Team Providers Care Manager Of Broadcast Content Name Role Phone Rodriguez Robrets MD Primary Care Provider [phone] Reason for Visit * Reason Onset Date Comments Other 11/28/2019 medical source s tatement of ability to do work related activities Encounter Details Date Type Department Care Team (Late st Contact Info) Description 11/28/2019 Tele[place] [address] Erick York III, MD [facility] [place] [address] Other (medical source statement of ability to do work related activities) Social History Tobacco Use Types Packs/Day Years [...] Telephone Encounter - Audrey Lucas RN - 11/28/2019 9:12 AM EDT medical source statement of ability to do work related activities completed by Dr. York and faxed to [employer] attn: Js Lopez on 11/28/2019 to fax number [phone]. Copy sent to be scanned to chart. documented in this encounter Plan of Treatment Upcoming Encounters Date Type Department Care Team (Late st Contact Info) Description 01/19/2024 1:00 PM EST Office Visit Urology at [place] [address] [place] [phone] Desean Coronado MD [facility] [place] [address] 01/22/2024 12:30 PM EST Office Visit Neurosurgery at [facility] 10 [place] [address] Hema Escalante MD [address] [facility] [place] [address] Liudmila Oates PA [address] [facility] [place] [address] 02/01/2024 12:00 PM EST Office [place] [phone] Georgette Monae PA [facility] [place] [address] 05/30/2024 10:30 AM EDT Appointment [place] [phone] documented as of this encounter Visit Diagnoses Not on filedocumented in this encounter Care Teams Manager Of Broadcast Content Relationship Specialty Start Date End Date Rodriguez Roberts MD [address] [place] [address] PCP - General 11/15/13 02/09/21 documented as of this encounter
--- OUTSIDE RECORDS SUMMARY | 2024-01-15 20:04 | XMS_ITS | Encounter Summary ---
Author Organization [facility] Address [facility] [place] [address] Care Team Providers Care Engraver Signature Name Role Phone Rodriguez Roberts MD Primary Care Provider [phone] Reason for Visit * Reason Onset Date Comments Prior Authorization 05/18/2018 TECFIDERA 12 0MG - APPROVED & 240MG APPROVED (1 MONTH EACH) Encounter Details Date Type Department Care Team (Late st Contact Info) Description 05/18/2018 [place] [address] Erick York III, MD [facility] [place] [address] Prior Authorization (TECFIDERA 120MG - APPROVED & 240MG APPROVED (1 MONTH EACH) ) Social History Tobacco Use Types Packs/Day Years [...] Telephone Encounter - Audrey Lucas RN - 06/20/2018 10:20 AM EDT I called [facility] pharmacy and spoke with Deja. She will f/u on this and call back if any further issues. * Telephone Encounter - Meenu Berry - 06/20/2018 10:08 AM EDT CALLED [place] MEDICAID TO SEE WHY THIS WAS REJECTING AT PHARMACY (BELOW PA REQUEST) [phone]. 240MG WAS APPROVED 06/18/18-08/28/18. REJECTION SHOWING UP IS A 'DUR' CODE. THIS WILL SHOW UP LOOKING LIKE A PA BUT IT IS NOT. IT IS BUMPING AGAINST THE STARTER PACK (MS RX DMD). THIS NEEDS TO BE ADDRESSED AT THE PHARMACY BEFORE IT CAN BE FILLED. NOTHING THE DRS OFFICE OR INSURANCE CAN DO. PHARMACY INFO LISTED BELOW IN PA REQUEST FROM 06/19/18. * Telephone Encounter - Meenu Berry - 06/20/2018 9:59 AM EDT Images from the original note were not included. PA REQUEST CAME IN 06/19/2018 * Telephone Encounter - Meenu Berry - 06/20/2018 9:57 AM EDT Images from the original note were not included. * Telephone Encounter - Meenu Berry - 06/20/2018 9:56 AM EDT Images from the original note were not included. * Telephone Encounter - Meenu Berry - 05/23/2018 11:21 AM EDT Images from the original note were not included. * Telephone Encounter - Meenu Berry - 05/22/2018 3:47 PM EDT CHECKING STATUS OF MAINTENANCE DOSE. NEVER REC'D DECISION. * Telephone Encounter - Meenu Berry - 05/22/2018 8:37 AM EDT Images from the original note were not included. * Telephone Encounter - Meenu Berry - 05/21/2018 2:06 PM EDT Images from the original note were not included. WROTE UP THE FOLLOWING AND FAXED IT BACK TO INSURANCE WITH BOTH REQUESTS FOR MORE INFORMATION. * Telephone Encounter - Meenu Berry - 05/21/2018 1:33 PM EDT Images from the original note were not included. LOOKED UP CRITERIA ON [employer] WEBSITE. * Telephone Encounter - Meenu Berry - 05/21/2018 1:25 PM EDT IT IS CLEARLY MARKED ON THE PA REQUESTS THAT THE PT HAS A DX OF RELAPSING REMITTING MS. IT IS ALSO MARKED ON THE PA REQUEST THAT PT CANNOT DO INJECTIONS DUE TO DECREASED RIGHT ARM SENSATION. CANNOT TAKE GILENYA DUE TO EXISTING BACK PROBLEMS. GILENYA HAS COMMON SIDE EFFECTS OF BACK PROBLEMS. * Telephone Encounter - Meenu Berry - 05/21/2018 1:24 PM EDT Images from the original note were not included. * Telephone Encounter - Meenu Berry - 05/18/2018 2:21 PM EDT Images from the original note were not included. FORMS FILLED OUT FOR BOTH 120MG AND 240MG AND FAXED TO [facility] [employer]. [phone]. * Telephone Encounter - Meenu Berry - 05/18/2018 2:18 PM EDT Images from the original note were not included. documented in this encounter Plan of Treatment Upcoming Encounters Date Type Department Care Team (Late st Contact Info) Description 01/19/2024 1:00 PM EST Office Visit Urology at [place] [address] [place] [phone] Desean Coronado MD [facility] [place] [address] 01/22/2024 12:30 PM EST Office Visit Neurosurgery at [facility] 10 [place] [address] Hema Escalante MD [address] [facility] [place] [address] Liudmila Oates PA [address] [facility] [place] [address] 02/01/2024 12:00 PM EST Office [place] [phone] Georgette Monae PA [facility] [place] [address] 05/30/2024 10:30 AM EDT Appointment [place] [phone] documented as of this encounter Visit Diagnoses Not on filedocumented in this encounter Care Teams Engraver Signature Relationship Specialty Start Date End Date Rodriguez Roberts MD [address] [place] [address] [address] [place] [address] PCP - General 11/15/13 02/09/21 documented as of this encounter
--- OUTSIDE RECORDS SUMMARY | 2024-01-15 20:04 | XMS_ITS | Encounter Summary ---
Author Organization [facility] Address [facility] [place] [address] Care Team Providers Care Application Penetration Tester Name Role Phone Rodriguez Roberts MD Primary Care Provider [phone] Encounter Details Date Type Department Care Team (Late st Contact Info) Description 01/18/2019 Specialty [place] [address] Octavio Yanes, [facility] Social History Tobacco Use Types Packs/Day Years [...] 1:00 PM EST Office Visit Urology at [place] [facility] [address] [place] [phone] Desean Coronado MD [facility] [place] [address] 01/22/2024 12:30 PM EST Office Visit Neurosurgery at [facility] [address] [place] [address] Hema Escalante MD [address] [facility] [place] [address] Liudmila Oates PA [facility] [place] [address] 02/01/2024 12:00 PM EST Office [place] [phone] Georgette Monae PA [facility] [place] [address] 05/30/2024 10:30 AM EDT Appointment [place] [phone] documented as of this encounter Visit Diagnoses Not on filedocumented in this encounter Care Teams Application Penetration Tester Relationship Specialty Start Date End Date Rodriguez Roberts MD [address] [place] [address] PCP - General 11/15/13 02/09/21 documented as of this encounter
--- OUTSIDE RECORDS SUMMARY | 2024-01-15 20:04 | XMS_ITS | Encounter Summary ---
Author Organization [facility] [place] [address] Care Team Providers Care Car Driver Name Role Phone Rodriguez Roberts MD Primary Care Provider [phone] Reason for Visit * Reason Onset Date Comments Other 12/02/2019 Encounter Details Date Type Department Care Team (Late st Contact Info) Description 12/02/2019 [place] [address] Erick York III, MD [facility] [place] [address] Other Social History Tobacco Use Types Packs/Day [...] Telephone Encounter - Audrey Lucas RN - 12/02/2019 11:04 AM EDT I will forward to Dr. York * Telephone Encounter - Sharee Wilson - 12/02/2019 10:23 AM EDT Call Center / [place] Message - General Issue Call Provider patient sees in Clinic: Dr. York Caller and relationship (if other than patient-full name): Pt Call back number: [phone] Ok to leave a message: yes Reason for call: Pt called stating he is returning Dr. York's phone call regarding his MRI results. Pt stated he is available all day today to go over results but if Dr. York is unable to call today then pt will keep his cellphone with him all week. Please call pt back. Disposition of Call (choose one and remove others): ??? Routine Message sent to the Nurse: documented in this encounter Plan of Treatment Upcoming Encounters Date Type Department Care Team (Late st Contact Info) Description 01/19/2024 1:00 PM EST Office Visit Urology at [address] [address] Desean Coronado MD [facility] [place] [address] 01/22/2024 12:30 PM EST Office Visit Neurosurgery at [facility] [address] [place] [address] Hema Escalante MD [address] [facility] [place] [address] Liudmila Oates PA [address] [facility] [place] [address] 02/01/2024 12:00 PM EST Office [place] [address] Georgette Monae PA [facility] [place] [address] 05/30/2024 10:30 AM EDT [place]oint[place] [address] documented as of this encounter Visit Diagnoses Not on filedocumented in this encounter Care Teams Car Driver Relationship Specialty Start Date End Date Rodriguez Roberts MD [address] [place] [address] PCP - General 11/15/13 02/09/21 documented as of this encounter
--- OUTSIDE RECORDS SUMMARY | 2024-01-15 20:04 | XMS_ITS | Encounter Summary ---
Author Organization [facility] [place] [address] Care Team Providers Care Civil Preparedness Training Officer Name Role Phone Rodriguze Roberts MD Primary Care Provider [phone] Reason for Visit * Reason Comments Pain Management Back Pain Pain, Chronic * Consultation (Routine) - Closed Specialty Diagnoses / Procedures Referred By Contac t Referred To Contact Pain Management Diagnoses Multiple sclerosis Chronic bilateral low back pain with right-sided sciatica Erick York III, MD [facility] [place] [address] [facility] [address] [place] [phone] Referral ID Status Reason Start Date Expiration Date V isits Requested Visits Authorized [id number] Closed Consult, Test & Treat 08/22/2018 08/22/2019 1 1 Encounter Details Date Type Department Care Team (Late st Contact Info) Description 09/03/2018 8:30 AM EDT Office [place] [id number] Asael Tejada PA [facility] [place] [address] Bilateral low back pain with sciatica, sciatica laterality unspecified, unspecified chronicity Social History Tobacco Use Types Packs/Day Years [...] Sign Reading Time Taken Comments Blood Pressure 143/87 09/03/2018 8:29 AM EDT Pulse 74 09/03/2018 8:29 AM EDT Temperature - - Respiratory Rate - - Oxygen Saturation 98% 09/03/2018 8:29 AM EDT Inhaled Oxygen Concentration - - Weight 99.8 kg (220 lb) 09/03/2018 8:29 AM EDT Height 175.3 cm (5' 9) 09/03/2018 8:29 AM EDT Body Mass Index 32.49 09/03/2018 8:29 AM EDT documented in this encounter Patient Instructions * Patient Instructions* Asael Tejada PA - 09/03/2018 8:30 AM EDT Recommendations: #1 Medications:Discussed low dose naltrexone at some length When used at low doses, naltrexone functions as a microglial attenuating therapy that decreases inflammation within the central nervous system and improves chronic pain without causing habituation and dependence. ?? -Sofya Rivera, et al. The use of low-dose naltrexone (LDN) as a novel anti- inflammatory treatment for chronic pain. Clin Rheumatol (2014) 33:451-459 -Sofya Rivera, et al. Fibromyalgia symptoms are reduced by low dose naltrexone: a outside contractor sales study. ?? PainMedicine (200() 10:663-672 Low-Dose Naltrexone (LDN)-Review of Therapeutic Utilization. Joan Bauer. Med Sci ([place]). 2018 Nov 10;6(4). pii: E82. doi: 10.3390/[id number]. Review. Low dose naltrexone is a compounded medication that must be made at this low dosage per capsule by a compounding pharmacy. As a compounded medication is unlikely to be covered by insurance. The compounding pharmacy will contact you with a nelson and will ask how you would like to pay. They will thenship the medication to your address. Discussion of medical cannabis: I include the following concerning he use of medical cannabis for pain management. I do not advocate for or against the use of therapeutic cannabis. I leave it to patients and their Primary Care Physician to determine if it is appropriate for any individual case. ?? Cannabis is not approved by the Federal Food and Drug Administration for therapeutic purposes and that, although [place] and [place] have approved the limited use of cannabis for therapeutic purposes, its use is not approved under federal law. An individual risks loss of employment may occur at employer???s discretion for using cannabis. ?? There is controversy in the medical scientific literature available regarding the health effects ofcannabis for therapeutic purposes and more research is currently being conducted. ?? Cannabis is an herb that contains over 400 chemicals many of which are biologically active. Some ofthese are ???cannabinoids?? which may be helpful for pain, anxiety, loss of appetite, nausea or other symptoms in some persons. Cannabinoids and other chemicals also may be associated with toxic effects (see below) ?? Cannabis is a naturally occurring substance and therefore the chemical content is not precisely controlled and the effects of marijuana can vary considerably between plants. ?? No Federal, State or other regulatory agency oversees the production or distribution of cannabis toassure dosing or quality of cannabis or freedom from contaminants such pesticides, fungi or other contaminants. ?? The following are potential health effects of therapeutic use of cannabis: Potential Immediate Risks or Side Effects whether smoked, orally consumed, or vaporized: 1. Altered sensations, perceptions, thinking, memory, and/or judgment that can impair your ability to safely and responsibly drive, work, or operate machinery for hours to days after last use depending on the type, amount and frequency of marijuana used ?? 2. Risk for falls, motor vehicle accidents, or other accidents or injury due to above impairments ?? 3. Anxiety or panic has been reported in some persons ?? 4. Dryness of mouth and/or other mucosal membranes. ?? 5. Increased appetite ?? 6. Rapid heart rate and increased blood pressure. These may increase risk of heart attack, especially in persons with pre-existing heart disease or condition. ?? 7. Possibly increased risk of stroke (brain injury) due to spasm of blood vessels in the brain. ?? 8. Smoked cannabis may worsen symptoms due to asthma, COPD or other pulmonary conditions. ?? Potential Risks or Side Effects from Regular Cannabis Use 1. Physical dependency on the cannabis which means that a person may experience a number of withdrawal symptoms if the person stops using it regularly including irritability, anxiety, disordered sleep, loss of appetite, cannabis craving and others ?? 2. Addiction, indicated by an inability to stop using cannabis despite the fact it is causing ongoing negative effects; evidence suggest occurs in approximately 9% of persons who use cannabis ?? 3. Academic, social, or work related problems due to delays or challenges in intellectual, psychological or social development, including significant memory impairment ?? 4. Schizophrenia and some other psychiatric disorders appear to be more common and earlier in onsetin persons who use cannabis regularly in their teenage years. ?? 5. Smoked cannabis may cause bronchitis, increased asthma symptoms and possible increased risk of lung cancer. ?? 6. Cannabis use by women is associated with abnormal development of the nervous system in unborn babies and in growth retardation and low weights. #2 Procedures: No new procedures at this time #3 Imaging:None at this time #4 Referrals:None at this time #5 Behavioral Medicine:None at this time #6 Physical Medicine:Recommend a round of physical therapy/pool therapy to try to enhance Mobilization Discussed the FRP program. Mr. Chacon is not interested at this time but may consider in The future. Right now he's an hour away and feels that is too far to be manageable. #7 Education:None at this time #8 FOLLOW UP: F/u PRN, call or return if symptoms worsen or fail to improve documented in this encounter Progress Notes * Asael Tejada PA - 09/03/2018 8:30 AM EDT PAIN CLINIC FOLLOW-UP DATE OF VISIT 09/03/2018 Patient Erick Chacon 1985 PRIMARY CARE PROVIDER Rodriguez Roberts MD CHIEF COMPLAINT: Chronic back pain HPI: Erick Chacon is a 32 y.o. male is here today to follow up in the [facility] for chronic pain and multiple sclerosis. He was seen in Neurology 07/18/2018 where this was noted: Erick Chacon is a 32 y.o. year old right-handed man with chronic back pain who was diagnosed with MS in March 2018 after presenting to [facility] on 04/04/2018 with subacute onset of progressivenumbness in the legs and right arm. His initial examination was notable for decreased sensation in the right upper extremity and right lower extremity more than left lower extremity, mild hyperreflexia on the right, and decreased finger tapping on the right. MRI scan of his cervical spine shows multilevel foci of T2 hyperintense signal in which the longus lesion spans from C2-C4 with focal enhancement at C2-C3 on the right. There are also several other cervical cord lesions without contrast enhancement. MRI of the thoracic spine showed interval worsening of right posterior lateral T8-T9 disc protrusion with mass-effect on the cord resulting in moderate central canal narrowing. MRI scan of his brain showed multiple T2 hyperintense white matter lesions consistent with demyelination including a contrast-enhancing lesion at the right brachium pontis. He was treated with 3 days of IV steroids followed by a 2-week prednisone taper. He had a lumbar puncture performed which showed the presence of 13 oligoclonal bands, but was otherwise unremarkable. Serum autoimmune markers were notable forpositive HELEN with titer of 1: 320. ?? Interval History: Erick was last seen in clinic in April after his hospitalization in when he was diagnosedwith MS. At that time he completed enrollment for Tecfidera. Today, he reports flushing with every dosing of Tecfidera (which he started in May). He has triedtaking a baby Aspirin at the same time that he takes Tecfidera. He experiences the flushing sensation about 15 minutes after he takes Tecfidera and lasts about 1 hour. He eats before taking Tecfidera. Sometimes the flushing is so intense that he does not want to continue on Tecfidera. He also notesworsening fatigue with the flushing sensation. He has also had some intermittent LLQ abdominal painsince starting Tecfidera - happens sometimes about 1 hour after doses. ?? He denies any new neurological symptoms at today's appointment concerning for a MS relapse. ?? He notes worsening neck pain that radiates down into both of his elbows that is worse when he lifts. It is not an electrical sensation, but more of a muscle pain. He reports stiffness in both of his elbows that is worse in the morning. He continues to have spasms in his legs, shoulders, forearms despite taking baclofen 10mg three times daily. He denies any side effects from baclofen and is unsureif it was helping. He is doing some stretching exercises every other day, but is not sure that thisis helping. ? MS Symptom Review: Mood: Frustrated, anxious and depressed. He denies any thoughts of hurting himself. He has difficulty sleeping at night due to muscle spasms but also worsening anxiety. He is under a lot of financialstress. Spasms/spasticity: improved on baclofen 10mg three times daily Walking: He reports difficulty with walking more than 0.5mile due to balance difficulties - he has started to use a cane for longer walks/hikes. Turning quickly can worsen his balance Bladder: intermittent difficulty with micturition Bowel: none ?? He was seen by Dr. Franco in our clinic last January and this was noted: Erick Chacon He is a 32 y.o. year old male who presents to the pain clinic today at the referral of: ?? Rodriguez Roberts MD [address] [place], [place] [id number] ?? for consideration of low back pain radiating down legs. Was last seen here 2.5 years ago by Prema Vazquez APRN when he was titrating off opioids. He has since gotten off all extended release opioids. He still takes Tramadol prn for pain which he feels helps him do his job. He is here today because his pain has become acutely worse over the past few months. This pain originally started about 4 years ago. He had LESI x3 which provided him with good relief and he states that he feels like that would likely be helpful for his current pain. He is currently on a steroid burst which he states has helped the the pain in his back, but has not really improved the pain that shoots down his legs. 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 [facility] and needs to be able to lift heavy boxes. ?? He followed that with an epidural steroid injection 02/06/2019. He now returns for follow up. INTERVAL HISTORY: He says the last injection gave maybe a couple of weeks of relief. But, it did not provide a long lasting solution. Pain Assessment: Description: Aching pain usually; but sometime stabbing Location: across bilateral lumbar spine and now having symptoms in upper thoracic back (left side) and shoulder Weakness, numbness, tingling: sometimes in lateral thigh and in calf and into feet Saddle Anesthesia: none Other associated symptoms: none Alleviating factors: lying down can help with legs propped on pillow Aggravating factors: prolonged sitting; bending over; twisting Pain today: 5/10 Best in past week: 10--lying down Worst in past week: 6-08/29--when being active PAST THERAPIES: Acetaminophen: tried it, doesn't help NSAID: aleve in past Opioids: was on in past maybe 2 yrs ago and was on morphine for 2 years earlier Storage of opioids:na Antidepressants: cymbalta and amitriptyline in past (was working ) Anticonvulsants: gabapentin and lyrica--was on 900mg daily of gabapentin; was on Lyrica too--says wasn't helping and thinks he had some side effect issue Muscle relaxants: on baclofen now; calmed spasms down some Topicals: tried lidocaine; tried compounded ointment--PCP was not a big fan Herbal supplements/vitamins: none Injections: multiple epidural steroid injections Surgery: none Physical Therapy: can't do it due to pain TENS: has one Acupuncture: none Chiropractic: none Massage: none CBT,Meditation/Imagery: listens to music Yoga/David Chi/ Movement: none Marijuana: none Other: sometimes heat and cold WOULD LIKE TO: Bike, play basketball, exercise, We discussed the FRP and he says he would be kicked out in two days because he is so bad. MEDICATIONS Medications 09/03/18 8462 Medication Sig Taking? nortriptyline (PAMELOR) 25 mg Capsule Take 1 capsule by mouth nightly. Yes baclofen (LIORESAL) 10 mg Tablet Take 1 tablet by mouth 3 times daily. Yes dimethyl fumarate (TECFIDERA) 120 mg (14)- 240 mg (46) Capsule, Delayed Release(E.C.) Take by mouth. Continue 240 mg BID after titration pack Yes diazePAM (VALIUM) 5 mg Tablet Take 1 tablet by mouth nightly as needed for Muscle spasms. Yes traMADol (ULTRAM) 50 mg Tablet Take 1 tablet by mouth every 4 hours as needed for Pain. Yes NIFEdipine (ADALAT CC) 30 mg Tablet Sustained Release Take 30 mg by mouth daily. Yes arginine 500 mg Tablet Take 1,000 mg by mouth daily. Yes b complex vitamins Capsule Take 1 capsule by mouth daily. Yes methylphenidate (RITALIN) 20 mg Tablet Take 20 mg by mouth 3 times daily. Yes [place] and [place] Prescription Monitoring Program were checked and 31 prescriptions were reported. FUNCTIONAL /SOCIAL Lives with: alone Work: not working, filed for disability Interference with activities/ADL: doing daily activities, has help with housework and shopping RISK ASSESSMENT Smoking: quit smoking Alcohol: none Other drugs: none ADVERSE DRUG REACTIONS Allergies as of 09/03/2018 ??? (No Known Allergies) REVIEW OF SYSTEMS: Constitutional Denies Fevers, sweats when back is bad Chills, loss of weight HEENT Denies new hearing problems, vision problems has dry eye or dental problems. Cardiovascular Denies chest pain occasional after pushups; (was told it was heartburn) then told itwas maybe from cervical or thoracic spine, palpitations, OR, hypertension (recommended talking withPCP about that), heart murmur. Respiratory Denies cough, SOB, wheezing, asthma. GI Denies N when really sore/V, Hepatits, yellow jaudice, liver problems. Stool incontinence Denies kidney problems, infections, blood in urine, or kidney stones Musculoskeletal Denies other joint pains, see HPI. Neurologic Denies seizures, convulsions, stroke, shock, frequent headaches getting more with MS, dizziness or passing out. Sleep is poor. Psychiatric Denies depression, anxiety, stress or suicidal ideation. Hematologic Denies prolonged bleeding, easy bruising, lymph gland swelling Dermatologic Denies rashes, or other skin problems saw dermatology and did biopsies with nothing serious PHYSICAL EXAMINATION Body mass index is 32.49 kg/m??. BP 143/87 Pulse 74 Ht 175.3 cm (5' 9) Wt 99.8 kg (220 lb) Appearance/ Behavior Well groomed, good eye contact, relaxed, cooperative, normal speech, no acute distress. HEENT Sclera non-icteric, conjunctiva clear. Hearing grossly intact. Lungs Clear to ausculation bilaterally Cardiovascular Regular rate and rhythm Psychiatric Pleasant mood, cooperative, oriented to person, place, and date Extremities No peripheral edema or digital cyanosis Skin No rash, lesions or ulcers Psych Alert and oriented to person, place and time, cooperative, pleasant affect MSK Tenderness to palpation of the mid-thoracic spine and over lower lumbar spine. Positive Cooney test R more than L. Pain with lumbar flexion to 30 deg and extension to 5 degrees. Neg straight leg raise bilat. Neg Sharon bilat. Neg SI compression/distraction bilat. Neuro No apparent sensory loss in lower extremities. DIAGNOSTIC STUDIES EXAMINATION: MRI TOTAL SPINE WWO CONTRAST ?? CLINICAL HISTORY: saddle anesthesia, difficulty urinating, numbness radiating from neck, more pronounced sensory level at t10 ?? TECHNIQUE: MRI of the cervical, thoracic and lumbar spine was performed before and after the intravenous administration of 20cc Dotarem. ?? COMPARISON: CT of the cervical thoracic and lumbar spine dated April 03, 2018. MR total spine dated September 22, 2014. ?? FINDINGS: CERVICAL SPINE: There is mild straightening of the normal cervical lordosis is maintained part be positional. The vertebral body heights and disc spaces are well-maintained. Normal regional osseous marrow signal. ?? Multiple foci of T2 signal alteration within the cervical spine, the longest lesion affects the posterior RIGHT lateral aspect of the cord and spans from the inferior endplate of C2 to the superior endplate of C4, approximately 2.8 cm in length with focal enhancement posterior to the C2-C3 disc space in the RIGHT posterior column (series 26 image 16). [place] segments of T2 prolongation with enhancement are seen within the anterolateral cord posterior to the C4 vertebral body (series 26 image 22), and involving the bilateral posterior columns posterior to the C6 vertebral body. ?? Foci of T2 prolongation without enhancement are seen involving the RIGHT ventrolateral cord and RIGHT posterolateral cord at the mid C5 vertebral body (series 8 image 25) and involving the the RIGHT posterior lateral cord posterior to the C6 inferior endplate (series 8 image 31). ?? THORACIC SPINE: Unchanged disc space height loss at T8-T9 with interval worsening of the RIGHT posterior lateral T8-T9 disc protrusion with foraminal extension and mass effect on the cord resulting in moderate central canal narrowing and moderate RIGHT T8-T9 subarticular recess narrowing. There is T2 prolongation within the disc and postcontrast enhancement consistent with an acute on chronic protrusion. Question caudad migration of a disc fragment inferior and along the posterior aspect of T9 (series 9 image 10). ?? The remaining thoracic vertebral body heights and disc spaces are maintained with normal alignment. Normal regional osseous marrow signal. ?? Focal T2 signal alteration without enhancement within the RIGHT lateral aspect of the thoracic cord at the level of the T9-T10 disc space (series 100 image 40). ?? LUMBAR SPINE: Unchanged degenerative T1 and T2 signal alteration at the L5-S1 disc, with mild posterior disc space height loss. ?? The remaining vertebral body heights and disc spaces are preserved. Normal alignment of the lumbar spine. No areas of significant central canal or neural foraminal narrowing. Regional osseous marrow is normal in signal characteristics. ?? The visualized cervical soft tissues, intrathoracic and intra-abdominal contents are unremarkable. No lesions within the visualized posterior fossa. Incidentally noted is nonspecific fluid signal within the LEFT mastoid air cell. ?? IMPRESSION 1. Multifocal nonexpansile T2 signal alteration within the cervical and thoracic cord, with 3 enhancing lesions in the cervical cord as above. Differential diagnosis includes demyelinating disease such as multiple sclerosis. MRI with and without contrast suggested of the brain.. 2. Disc extrusion T8-T9 with moderate central canal narrowing and moderate RIGHT T8-T9 subarticular recess narrowing, question possible caudad migration posterior to the mid T9 vertebral body. ?? Preliminary report signed by: Rajendra Rowell MD at 04/04/2018 3:26 PM ?? I have personally reviewed the image(s) and the residents interpretation and agree with the findings, John Hartman at 04/04/2018 3:44 PM ?? Thank you for letting us participate in the care of this patient. For questions regarding this report, please contact the number below. EXAMINATION: MRI TOTAL SPINE WWO CONTRAST ?? CLINICAL HISTORY: saddle anesthesia, difficulty urinating, numbness radiating from neck, more pronounced sensory level at t10 ?? TECHNIQUE: MRI of the cervical, thoracic and lumbar spine was performed before and after the intravenous administration of 20cc Dotarem. ?? COMPARISON: CT of the cervical thoracic and lumbar spine dated April 03, 2018. MR total spine dated September 22, 2014. ?? FINDINGS: CERVICAL SPINE: There is mild straightening of the normal cervical lordosis is maintained part be positional. The vertebral body heights and disc spaces are well-maintained. Normal regional osseous marrow signal. ?? Multiple foci of T2 signal alteration within the cervical spine, the longest lesion affects the posterior RIGHT lateral aspect of the cord and spans from the inferior endplate of C2 to the superior endplate of C4, approximately 2.8 cm in length with focal enhancement posterior to the C2-C3 disc space in the RIGHT posterior column (series 26 image 16). [place] segments of T2 prolongation with enhancement are seen within the anterolateral cord posterior to the C4 vertebral body (series 26 image 22), and involving the bilateral posterior columns posterior to the C6 vertebral body. ?? Foci of T2 prolongation without enhancement are seen involving the RIGHT ventrolateral cord and RIGHT posterolateral cord at the mid C5 vertebral body (series 8 image 25) and involving the the RIGHT posterior lateral cord posterior to the C6 inferior endplate (series 8 image 31). ?? THORACIC SPINE: Unchanged disc space height loss at T8-T9 with interval worsening of the RIGHT posterior lateral T8-T9 disc protrusion with foraminal extension and mass effect on the cord resulting in moderate central canal narrowing and moderate RIGHT T8-T9 subarticular recess narrowing. There is T2 prolongation within the disc and postcontrast enhancement consistent with an acute on chronic protrusion. Question caudad migration of a disc fragment inferior and along the posterior aspect of T9 (series 9 image 10). ?? The remaining thoracic vertebral body heights and disc spaces are maintained with normal alignment. Normal regional osseous marrow signal. ?? Focal T2 signal alteration without enhancement within the RIGHT lateral aspect of the thoracic cord at the level of the T9-T10 disc space (series 100 image 40). ?? LUMBAR SPINE: Unchanged degenerative T1 and T2 signal alteration at the L5-S1 disc, with mild posterior disc space height loss. ?? The remaining vertebral body heights and disc spaces are preserved. Normal alignment of the lumbar spine. No areas of significant central canal or neural foraminal narrowing. Regional osseous marrow is normal in signal characteristics. ?? The visualized cervical soft tissues, intrathoracic and intra-abdominal contents are unremarkable. No lesions within the visualized posterior fossa. Incidentally noted is nonspecific fluid signal within the LEFT mastoid air cell. ?? IMPRESSION 1. Multifocal nonexpansile T2 signal alteration within the cervical and thoracic cord, with 3 enhancing lesions in the cervical cord as above. Differential diagnosis includes demyelinating disease such as multiple sclerosis. MRI with and without contrast suggested of the brain.. 2. Disc extrusion T8-T9 with moderate central canal narrowing and moderate RIGHT T8-T9 subarticular recess narrowing, question possible caudad migration posterior to the mid T9 vertebral body. ?? Preliminary report signed by: Rajendra Rowell MD at 04/04/2018 3:26 PM ?? I have personally reviewed the image(s) and the residents interpretation and agree with the findings, John Hartman at 04/04/2018 3:44 PM ?? Thank you for letting us participate in the care of this patient. For questions regarding this report, please contact the number below. SSMENT Erick Chacon is a 32 y.o. male is here today to follow up in the [facility] for chronicpain and multiple sclerosis. He has had multiple epidural steroid injections in the past for back/leg symptoms. But, he denies that these had much beneficial effect. He has bilateral low back pain, pain in the upper thoracic back (rhomboid area), and symptoms into his lower extremities. It seems difficult to discern whether the leg symptoms are spine driven or MSdriven at this point. His lack of response to LESI makes spinal etiology less likely. On exam, he has tenderness to palpation over his mid-thoracic spine, his lower lumbar spine, his lumbar paraspinal muscles, and to a lesser extent in his rhomboid muscles (L worse than R). We discussed how this generalized muscle pain would likely be improved with physical therapy (or pool therapy). Mr. Chacon does not feel he can tolerate PT at this time and does not with to try it right now. We also discussed the [employer] [facility], a 3 week intensive program to aid in regaining function that has been lost due to chronic pain. It does not pretend to be a program that will take pain away. But, it can help people with chronic pain achieve their activity goals in spite of their pain. Mr. Chacon feels his distance from [facility] is prohibitive at this time anyway. We discussed medications. I'm unclear exactly what the history is with gabapentin and Lyrica. He believes he had some cognitive adverse effect from the gabapentin and was less sure about Lyrica. But,those would be the medications I would try were it not for adverse effects. We discussed low dose naltrexone at some length. I said that would be what I would recommend. But, one can not concurrently take opioids and naltrexone. So, he would have to taper his tramadol and beopioid free for at least 5 days prior to starting LDN. I said I would include some information about it in my note. The other thing Mr. Chacon could discuss with his PCP is medical marijuana. I again said I wouldnot recommend for or against that but would provide some information in my note. We discussed procedures and how LESI is the procedure most likely to help with his leg symptoms. But, it appears his last one was only successful in the short term. Given that, I said it could be repeated. But, it may be that there is a mix of spine and MS related symptoms in his lower extremities that is confounding whatever benefit there is from the LESI. We agreed to follow up as needed with the understanding that he is free to contact us if he wants more information on LDN or on the [employer] [facility] that we discussed. Recommendations: #1 Medications:Discussed low dose naltrexone at some length When used at low doses, naltrexone functions as a microglial attenuating therapy that decreases inflammation within the central nervous system and improves chronic pain without causing habituation and dependence. ?? -Sofya Rivera, et al. The use of low-dose naltrexone (LDN) as a novel anti- inflammatory treatment for chronic pain. Clin Rheumatol (2014) 33:451-459 -Sofya Rivera, et al. Fibromyalgia symptoms are reduced by low dose naltrexone: a outside contractor sales study. ?? PainMedicine (200() 10:663-672 Low-Dose Naltrexone (LDN)-Review of Therapeutic Utilization. Joan Bauer. Med Sci ([place]). 2018 Nov 10;6(4). pii: E82. doi: 10.3390/gldxud0828472. Review. Low dose naltrexone is a compounded medication that must be made at this low dosage per capsule by a compounding pharmacy. As a compounded medication is unlikely to be covered by insurance. The compounding pharmacy will contact you with a nelson and will ask how you would like to pay. They will thenship the medication to your address. Discussion of medical cannabis: I include the following concerning he use of medical cannabis for pain management. I do not advocate for or against the use of therapeutic cannabis. I leave it to patients and their Primary Care Physician to determine if it is appropriate for any individual case. ?? Cannabis is not approved by the Federal Food and Drug Administration for therapeutic purposes and that, although [place] and [place] have approved the limited use of cannabis for therapeutic purposes, its use is not approved under federal law. An individual risks loss of employment may occur at employer???s discretion for using cannabis. ?? There is controversy in the medical scientific literature available regarding the health effects ofcannabis for therapeutic purposes and more research is currently being conducted. ?? Cannabis is an herb that contains over 400 chemicals many of which are biologically active. Some ofthese are ???cannabinoids?? which may be helpful for pain, anxiety, loss of appetite, nausea or other symptoms in some persons. Cannabinoids and other chemicals also may be associated with toxic effects (see below) ?? Cannabis is a naturally occurring substance and therefore the chemical content is not precisely controlled and the effects of marijuana can vary considerably between plants. ?? No Federal, State or other regulatory agency oversees the production or distribution of cannabis toassure dosing or quality of cannabis or freedom from contaminants such pesticides, fungi or other contaminants. ?? The following are potential health effects of therapeutic use of cannabis: Potential Immediate Risks or Side Effects whether smoked, orally consumed, or vaporized: 1. Altered sensations, perceptions, thinking, memory, and/or judgment that can impair your ability to safely and responsibly drive, work, or operate machinery for hours to days after last use depending on the type, amount and frequency of marijuana used ?? 2. Risk for falls, motor vehicle accidents, or other accidents or injury due to above impairments ?? 3. Anxiety or panic has been reported in some persons ?? 4. Dryness of mouth and/or other mucosal membranes. ?? 5. Increased appetite ?? 6. Rapid heart rate and increased blood pressure. These may increase risk of heart attack, especially in persons with pre-existing heart disease or condition. ?? 7. Possibly increased risk of stroke (brain injury) due to spasm of blood vessels in the brain. ?? 8. Smoked cannabis may worsen symptoms due to asthma, COPD or other pulmonary conditions. ?? Potential Risks or Side Effects from Regular Cannabis Use 1. Physical dependency on the cannabis which means that a person may experience a number of withdrawal symptoms if the person stops using it regularly including irritability, anxiety, disordered sleep, loss of appetite, cannabis craving and others ?? 2. Addiction, indicated by an inability to stop using cannabis despite the fact it is causing ongoing negative effects; evidence suggest occurs in approximately 9% of persons who use cannabis ?? 3. Academic, social, or work related problems due to delays or challenges in intellectual, psychological or social development, including significant memory impairment ?? 4. Schizophrenia and some other psychiatric disorders appear to be more common and earlier in onsetin persons who use cannabis regularly in their teenage years. ?? 5. Smoked cannabis may cause bronchitis, increased asthma symptoms and possible increased risk of lung cancer. ?? 6. Cannabis use by women is associated with abnormal development of the nervous system in unborn babies and in growth retardation and low weights. #2 Procedures: No new procedures at this time. #3 Imaging:None at this time #4 Referrals:None at this time #5 Behavioral Medicine:None at this time #6 Physical Medicine:Recommend a round of physical therapy/pool therapy to try to enhance Mobilization Discussed the [facility]P program. Mr. Chacon is not interested at this time but may consider in the Future. Right now he's an hour away and feels that is too far to be manageable. #7 Education:None at this time #8 FOLLOW UP: F/u PRN, call or return if symptoms worsen or fail to improve Erick Chacon had the opportunity to ask questions and indicated that all questions were answered to his satisfaction. Asael Tejada PA-C Physician [facility] [address] [phone] / [facility] documented in this encounter Plan of Treatment Upcoming Encounters Date Type Department Care Team (Late st Contact Info) Description 01/19/2024 1:00 PM EST Office Visit Urology at [facility] [address] [place] [phone] Desean Coronado MD [facility] [place] [address] 01/22/2024 12:30 PM EST Office Visit Neurosurgery at [facility] [address] [facility] [place] [address] Hema Escalante MD [address] [facility] [place] [address] Liudmila Oates PA [facility] [place] [address] 02/01/2024 12:00 PM [place] [address] Georgette Monae PA [facility] [place] [place] [address] 05/30/2024 10:30 AM EDT [place] [address] Scheduled Referrals Name Type Priority Associated Diagnoses Orde r Schedule Referral to Pain Clinic Outpatient Referral Routine Multiple sclerosis Chronic bilateral low back pain with right-sided sciatica Ordered: 08/22/2018 documented as of this encounter Visit Diagnoses Diagnosis Bilateral low back pain with sciatica, sciatica laterality unspecified, unspecified chronicity documented in this encounter Care Teams Civil Preparedness Training Officer Relationship Specialty Start Date End Date Rodriguez Roberts MD [address] [place] [address] PCP - General 11/15/13 02/09/21 documented as of this encounter
--- OUTSIDE RECORDS SUMMARY | 2024-01-15 20:04 | XMS_ITS | Encounter Summary ---
Author Organization [place] [address] Care Team Providers Care Drier Unloader Name Role Phone Rodriguez Roberts MD Primary Care Provider [phone] Reason for Referral * Consultation (Routine) - Closed Specialty Diagnoses / Procedures Referred By Contxavier t Referred To Contact Ophthalmology Diagnoses Multiple sclerosis Ada York III, MD [facility] [place] [address] Sherley Hope MD [facility] [place] [address] Referral ID Status Reason Start Date Expiration Date V isits Requested Visits Authorized [id number] Closed Consult, Test & Treat 05/16/2018 05/16/2019 1 1 * Diagnostic Test (Routine) - Closed Specialty Diagnoses / Procedures Referred By Contac t Referred To Contact Radiology Diagnoses Multiple sclerosis Procedures MRI Cervical Spine wwo Contrast Ada York III, MD [facility] [place] [address] [place] [address] Referral ID Status Reason Start Date Expiration Date V isits Requested Visits Authorized [id number] Closed Specialty Service Requested 05/16/2018 05/16/2019 1 1 * Diagnostic Test (Routine) - Closed Specialty Diagnoses / Procedures Referred By Mallorie swift Referred To Contact Radiology Diagnoses Multiple sclerosis Procedures MRI Brain wwo Contrast (Generic) Ada York III, MD [facility] [place] [address] [facility] [place] [address] Referral ID Status Reason Start Date Expiration Date V isits Requested Visits Authorized [id number] Closed Specialty Service Requested 10/04/2018 01/02/2019 1 1 Reason for Visit * Consultation (Routine) - Closed Specialty Diagnoses / Procedures Referred By Mallorie swift Referred To Contact Neurology Diagnoses Multiple sclerosis Stephania Bhardwaj MD [facility] [place] [address] [facility] [address] [place] [address] Referral ID Status Reason Start Date Expiration Date V isits Requested Visits Authorized [id number] Closed Consult, Test & Treat 04/07/2018 04/07/2019 1 1 Encounter Details Date Type Department Care Team (Late st Contact Info) Description 05/16/2018 2:00 PM EDT Office [place] [address] Ada York III, MD [facility] [place] [address] Multiple sclerosis Social History Tobacco Use Types [...] Sign Reading Time Taken Comments Blood Pressure 134/76 05/16/2018 1:44 PM EDT Pulse 92 05/16/2018 1:44 PM EDT Temperature - - Respiratory Rate - - Oxygen Saturation - - Inhaled Oxygen Concentration - - Weight 98.4 kg (217 lb) 05/16/2018 1:44 PM EDT Height 175.3 cm (5' 9) 05/16/2018 1:44 PM EDT r eported Body Mass Index 32.05 05/16/2018 1:44 PM EDT documented in this encounter Patient Instructions * Patient Instructions* Ada York III, MD - 05/16/2018 2:00 PM EDT We talked about starting a medication to reduce your risk of future MS relapses including: Tecfidera Gilenya Tysabri and Rituximab and Ocrelizumab We decided to start Tecfidera. I gave you information on this medication. We completed an enrollment form today. You should know in the next 2-4 weeks about starting. I will see you back in clinic in about 2 months. I have referred you to Dr. Jordan, neuro-ophthalmology, to evaluation your vision. Continue on Baclofen 10mg three times daily. Ada York III, MD documented in this encounter Progress Notes * Ada York III, MD - 05/16/2018 2:00 PM EDT [facility] Follow-up Visit Dear Rodriguez Roberts MD, I saw Ada Chacon in clinic today in follow-up for newly diagnosed MS. He was unaccompanied at today's visit. Below is my progress note with impression and plan. Please do not hesitate to callwith any questions. Appointment time: 2:00-3:05 (total 65 minutes) DISEASE SUMMARY: Principal neurologic diagnosis: MS Onset: 2019 Diagnosis of MS: 03/2018 CSF: 13 OCBs, normal IgG index, normal cell# and protein Disease course at onset: relapsing Current disease course: relapsing Relapses: 2019 - bilateral leg, R arm and neck numbness EDSS (today): 2.0 MS Severity Score (EDSS and Disease Duration): too early myD-H Multiple Sclerosis 08/25/2014 Pain Typical 8 Pain Now 7 Pain at Rest 3 Pain with Activity 10 Treatment History Previous disease therapies: none Current disease therapies: none Imaging History Most recent MRI brain: 04/05/2018 Most recent MRI cervical spine: 04/04/2018 Most recent MRI thoracic spine: 04/04/2018 Medication-related monitoring: see below HPI: Ada Chacon is a 32 y.o. year old right-handed man with chronic back pain who was diagnosed with MS in March 2018 after presenting to [facility] on 04/04/2018 with subacute onset of [...] forpositive HELEN with titer of 1: 320. Interval History: Since Ada was last seen in clinic he notes significant improvement of his symptoms. In the interim he developed transient abdominal numbness that have since resolved. He continues to have intermittent spasms, but these are significantly improved on baclofen 10 mg 3 times daily. He does report some intermittent blurring of his vision in both eyes without retro-orbital pain or loss of color perception. This is not necessarily new. Headaches: History of Migraines: since about age 24 Severity is worse than prior migraines Location - bilateral temporal Duration: a couple of hours Frequency: 3 times per week Aura: none Associated: light and sound sensitivity, no nausea Triggers: anxiety/stress Trigeminal symptoms: L lacrimation; no conjunctival erythema or rhinorea Current Medication - Taking Tylenol, does not help MS Symptom Review: Cognition: some difficulty with short-term memory Vision: some blurring of vision that lasted about 1 week a few weeks ago - (OS > OD), no color desaturation Fatigue: more fatigued after 3PM Mood: weird - more irritable, feels depressed in the setting of increased financial stress; he denies suicidal ideation Neuropathic symptoms: intermittent bilateral hand numbness Spasms/spasticity: improved on baclofen 10mg three times daily Falls: none in the past 6 months Bladder: intermittent difficulty with micturition Bowel: none Lifestyle: Exercise: started to lift weights - notices that hands cramp and go numb Diet: improved diet - more fish, vegetables Sleep: well - on baclofen and valium Current Medications: reviewed and updated in EMR Review of Systems A ROS was obtained and reviewed with the patient. Pertinent positives and negatives were included in the HPI. Physical Examination Most Recent Vitals: 05/16/18 1344 BP: 134/76 Pulse: 92 Hair, skin, nails, and joints were normal. Neck was supple without Lhermitte???s phenomenon. He was alert and oriented to person, place, and time with normal language, attention and concentration, recent and remote memory, praxis, and intellectual function. Mood was euthymic. Affect was congruent. Visual acuity was 20/15 OD, 20/20 OS. No clear red desaturation was noted bilaterally. Visual joiner were full on OD, possible small inferior nasal scotoma on OS, otherwise intact VF. Pupils were 3 mm and briskly reactive OU to 2 mm without a relative afferent pupillary defect. Funduscopic examination appeared normal. Ocular ductions were full without nystagmus. Facial sensation was normal. Muscles of facial expression moved normally. Hearing was normal. Palatal movements were normal. Trapeziuspower and tongue movements were normal. There was no dysarthria. Motor tone was increased in the RLE. There was no pronator drift. Upper extremities (R/L) Paper Testing Supervisor 5/5 Finger abduction 5/5 Finger extension 5/5 [...] the feet Negative Romberg. No dysmetria with abvgnv-sv-wply testing bilaterally. Finger tapping was slowed on the R fast on the L and accurate bilaterally. Standard gait was normal. Timed 25-foot walk (sec): 3.9 Assistive device: none. QUANTITATIVE SCORES: Vision 0 Brainstem 0 Pyramidal 1 Cerebellar 0 Sensory 2 B&B 1 Cerebral 0 Ambulation 0 EDSS 2.0 REVIEW OF IMAGING STUDIES: No new imaging REVIEW OF LABORATORY STUDIES: Results for ADA CHACON ( ) as of 05/16/2018 13:57 Ref. Range 04/06/2018 11:10 04/06/2018 15:41 HIV-1/2 Ab and Ag Latest Ref Range: Negative Negative QFT Nil Latest Units: IU/mL 0.030 QFT TB Ag1-Nil Latest Units: IU/mL -0.010 QFT TB Ag2-Nil Latest Units: IU/mL -0.010 QFT Mitogen-Nil Latest Units: IU/mL 9.820 Quantiferon TB Latest Ref Range: Negative Negative Quantiferon TB Interp Unknown M. tuberculosis infection not likely Enterovirus PCR, Qualitative Latest Ref Range: Negative Negative HepB Surface Ab Quant Latest Units: IU/L 3.5 HepB Surface Ab Unknown Negative HepB Surface Ag Latest Ref Range: Negative Negative Hep B Core IgM Latest Ref Range: Negative Negative Hepatitis C Ab Latest Ref Range: Negative Negative Varicella-Zoster PCR Unknown ... Varicella IgG Unknown Pos Assessment: ICD-10-CM 1. Multiple sclerosis G35 CBC (with Diff) Hepatic Function Panel Vitamin D, 25-Hydroxy MRI Brain wwo Contrast (Generic) MRI Cervical Spine wwo Contrast Referral to Ophthalmology Ada Chacon is a 32 y.o. man with recent diagnosis of relapsing multiple sclerosis with activity. He does have significant risk factors for disability in the future including sex and cervical lesion burden. Based on this I would like to start him on a highly effective MS disease modifying therapy in the near future. We discussed the following treatments: Tecfidera, Gilenya, ocrelizumab/rituximab, and Tysabri. After lengthy discussion about potential side effects, safety concerns, efficacy we decided to complete enrollment forms for starting Tecfidera. Monitoring Plan: 1. Repeat MRI scan of the brain in approximately 6 months 2. CBC with differential and LFTs every 3 months after starting Tecfidera 3. Referral to neuro-ophthalmology, Dr. Munoz, for reported vision difficulties Treatment Plan: 1. Enrollment form for Tecfidera completed today 2. Continue baclofen 10 mg 3 times daily 3. Continue tamsulosin 0.4 mg daily 4. Recommend regular exercise Follow-Up: 2 months Thank you for allowing [facility]. If you have questions or concerns please do not hesitate to call our clinic at [phone]. Ada York III, MD Mobile Marketing Specialist of Neurology [facility] More than 50% of this 65 minute sjkr-sm-vppw interaction was spent in counseling on diagnosis, prognosis, and medication and symptom management. 3:22 PM 05/18/2018 documented in this encounter Plan of Treatment Upcoming Encounters Date Type Department Care Team (Late st Contact Info) Description 01/19/2024 1:00 PM EST Office Visit Urology at [facility] [address] [place] [phone] Desean Coronado MD [facility] [place] [address] 01/22/2024 12:30 PM EST Office Visit Neurosurgery at [facility] [address] [place] [phone] Hema Escalante MD [facility] [place] [address] Liudmila Oates PA [address] [facility] [address] 02/01/2024 12:00 PM EST Office [place] [phone] Georgette Monae PA [facility] [place] [address] 05/30/2024 10:30 AM EDT Appointment [place] [address] Scheduled Referrals Name Type Priority Associated Diagnoses Order Schedule Referral to Ophthalmology Outpatient Referral Routine Multiple sclerosis Ordered: 05/16/2018 documented as of this encounter Results * MRI Cervical Spine wwo Contrast (10/26/2018 2:17 PM EDT) Anatomical Region Laterality Modality C-spine Magnetic Resonan ce Impressions 10/26/2018 3:55 PM EDT No new or enhancing lesion within the brain or cervical cord. Resolution of enhancement within the previously enhancing brain and cervical cord lesions. Thank you for letting us participate in the care of this patient. For questions regarding this report, please contact the number below. ? Narrative 10/26/2018 3:55 PM EDT EXAMINATION: MRI CERVICAL SPINE WWO CONTRAST, MRI BRAIN WWO CONTRAST (GENERIC) CLINICAL HISTORY: MS, serial evaluation for interval new lesions TECHNIQUE: Multiple sclerosis protocol MRI of the brain and cervical spine was performed before and after the intravenous administration of 20cc Dotarem. COMPARISON: MRI brain 04/05/2018, MRI spine 04/04/2018 FINDINGS: Brain: Similar appearance of the previously described subcortical and deep supratentorial white matter lesions. Less conspicuous signal alteration along the right lloyd/brachium pontis which no longer demonstrates enhancement. No new or enhancing lesion in the brain. No diffusion-weighted abnormality, mass effect or extra-axial collection. The ventricles are unchanged in caliber and contour. Similar appearance of cerebellar tonsillar descent through the foramen magnum by approximately 6 mm, though the tonsils maintain their normal rounded morphology and there is no effacement of CSF at the foramen magnum. Partial fluid opacification of left mastoid air cells. Trace maxillary sinus and ethmoid air cell mucosal thickening. The orbits are unremarkable. Cervical spine: ??Alignment and regional marrow signal are normal. The prevertebral soft tissues are normal in thickness. Similar size of right dorsal cord lesion at the superior C3 level. And central and dorsal cord lesion at the superior C4 level. Unchanged small left ventral cord lesion at the C4 level. Unchanged left ventral lateral and right dorsolateral cord lesions at the C5 level. Slightly more conspicuous central dorsal cord lesion at the C5-6 level, possibly related to technique. Unchanged right dorsolateral cord lesion at C6 level. The previously describe enhancing lesions no longer demonstrate enhancement. No new enhancing lesion. Procedure Note Isabel Echols MD - 10/26/2018 EXAMINATION: MRI CERVICAL SPINE WWO CONTRAST, MRI BRAIN WWO CONTRAST(GENERIC) CLINICAL HISTORY: MS, serial evaluation for interval new lesions TECHNIQUE: Multiple sclerosis protocol MRI of the brain and cervical spine wasperformed before and after the intravenous administration of 20cc Dotarem. COMPARISON: MRI brain 04/05/2018, MRI spine 04/04/2018 FINDINGS: Brain: Similar appearance of the previously described subcortical anddeep supratentorial white matter lesions. Less conspicuous signal alterationalong the right lloyd/brachium pontis which no longer demonstrates enhancement.No new or enhancing lesion in the brain. No diffusion-weighted abnormality, masseffect or extra-axial collection. The ventricles are unchanged in caliber andcontour. Similar appearance of cerebellar tonsillar descent through the foramenmagnum by approximately 6 mm, though the tonsils maintain their normal roundedmorphology and there is no effacement of CSF at the foramen magnum. Partial fluid opacification of left mastoid air cells. Trace maxillary sinus and ethmoidair cell mucosal thickening. The orbits are unremarkable. Cervical spine: Alignment and regional marrow signal are normal. The prevertebral soft tissues are normal in thickness. Similar size of rightdorsal cord lesion at the superior C3 level. And central and dorsal cord lesionat the superior C4 level. Unchanged small left ventral cord lesion at the [id number]. Unchanged left ventral lateral and right dorsolateral cord lesions at theC5 level. Slightly more conspicuous central dorsal cord lesion at the C5-6level, possibly related to technique. Unchanged right dorsolateral cord lesion atC6 level. The previously describe enhancing lesions no longer demonstrate enhancement. No new enhancing lesion. IMPRESSION No new or enhancing lesion within the brain or cervical cord. Resolution of enhancement within the previously enhancing brain andcervical cord lesions. Thank you for letting us participate in the care of this patient. Forquestions regarding this report, please contact the number below. Ada York III, MD [facility] MRI ORDERABLE S * MRI Brain wwo Contrast (Generic) (10/26/2018 2:17 PM EDT) Anatomical Region Laterality Modality Head Magnetic Resonan ce Impressions 10/26/2018 3:55 PM EDT No new or enhancing lesion within the brain or cervical cord. Resolution of enhancement within the previously enhancing brain and cervical cord lesions. Thank you for letting us participate in the care of this patient. For questions regarding this report, please contact the number below. ? Narrative 10/26/2018 3:55 PM EDT EXAMINATION: MRI CERVICAL SPINE WWO CONTRAST, MRI BRAIN WWO CONTRAST (GENERIC) CLINICAL HISTORY: MS, serial evaluation for interval new lesions TECHNIQUE: Multiple sclerosis protocol MRI of the brain and cervical spine was performed before and after the intravenous administration of 20cc Dotarem. COMPARISON: MRI brain 04/05/2018, MRI spine 04/04/2018 FINDINGS: Brain: Similar appearance of the previously described subcortical and deep supratentorial white matter lesions. Less conspicuous signal alteration along the right lloyd/brachium pontis which no longer demonstrates enhancement. No new or enhancing lesion in the brain. No diffusion-weighted abnormality, mass effect or extra-axial collection. The ventricles are unchanged in caliber and contour. Similar appearance of cerebellar tonsillar descent through the foramen magnum by approximately 6 mm, though the tonsils maintain their normal rounded morphology and there is no effacement of CSF at the foramen magnum. Partial fluid opacification of left mastoid air cells. Trace maxillary sinus and ethmoid air cell mucosal thickening. The orbits are unremarkable. Cervical spine: ??Alignment and regional marrow signal are normal. The prevertebral soft tissues are normal in thickness. Similar size of right dorsal cord lesion at the superior C3 level. And central and dorsal cord lesion at the superior C4 level. Unchanged small left ventral cord lesion at the C4 level. Unchanged left ventral lateral and right dorsolateral cord lesions at the C5 level. Slightly more conspicuous central dorsal cord lesion at the C5-6 level, possibly related to technique. Unchanged right dorsolateral cord lesion at C6 level. The previously describe enhancing lesions no longer demonstrate enhancement. No new enhancing lesion. Procedure Note Isabel Echols MD - 10/26/2018 EXAMINATION: MRI CERVICAL SPINE WWO CONTRAST, MRI BRAIN WWO CONTRAST(GENERIC) CLINICAL HISTORY: MS, serial evaluation for interval new lesions TECHNIQUE: Multiple sclerosis protocol MRI of the brain and cervical spine wasperformed before and after the intravenous administration of 20cc Dotarem. COMPARISON: MRI brain 04/05/2018, MRI spine 04/04/2018 FINDINGS: Brain: Similar appearance of the previously described subcortical anddeep supratentorial white matter lesions. Less conspicuous signal alterationalong the right lloyd/brachium pontis which no longer demonstrates enhancement.No new or enhancing lesion in the brain. No diffusion-weighted abnormality, masseffect or extra-axial collection. The ventricles are unchanged in caliber andcontour. Similar appearance of cerebellar tonsillar descent through the foramenmagnum by approximately 6 mm, though the tonsils maintain their normal roundedmorphology and there is no effacement of CSF at the foramen magnum. Partial fluid opacification of left mastoid air cells. Trace maxillary sinus and ethmoidair cell mucosal thickening. The orbits are unremarkable. Cervical spine: Alignment and regional marrow signal are normal. The prevertebral soft tissues are normal in thickness. Similar size of rightdorsal cord lesion at the superior C3 level. And central and dorsal cord lesionat the superior C4 level. Unchanged small left ventral cord lesion at the K8gxgah. Unchanged left ventral lateral and right dorsolateral cord lesions at theC5 level. Slightly more conspicuous central dorsal cord lesion at the C5-6level, possibly related to technique. Unchanged right dorsolateral cord lesion atC6 level. The previously describe enhancing lesions no longer demonstrate enhancement. No new enhancing lesion. IMPRESSION No new or enhancing lesion within the brain or cervical cord. Resolution of enhancement within the previously enhancing brain andcervical cord lesions. Thank you for letting us participate in the care of this patient. Forquestions regarding this report, please contact the number below. Ada York III, MD IMG MRI ORDERABLE S documented in this encounter Visit Diagnoses Diagnosis Multiple sclerosis Multiple sclerosis documented in this encounter Care Teams Drier Unloader Relationship Specialty Start Date End Date Rodriguez Roberts MD [address] [facility] [address] [place] [address] PCP - General 11/15/13 02/09/21 documented as of this encounter
--- OUTSIDE RECORDS SUMMARY | 2024-01-15 20:04 | XMS_ITS | Encounter Summary ---
Author Organization [facility] Address [facility] [place] [address] Care Team Providers Care Recreation Therapy Teacher Name Role Phone Rodriguez Roberts MD Primary Care Provider Encounter Details Date Type Department Care Team (Late st Contact Info) Description 10/16/2018 External [place] [address] Erick York III, MD [facility] [place] [address] Social History Tobacco Use Types Packs/Day Years [...] 1:00 PM EST Office Visit Urology at [facility] [address] [place] [phone] Desean Coronado MD [facility] [place] [address] 01/22/2024 12:30 PM EST Office Visit Neurosurgery at [address] [place] [phone] Hema Escalante MD [address] [place] [address] Liudmila Oates [place] [address] 02/01/2024 12:00 PM EST [place] [address] Georgette Monae PA [facility] [place] [place] [address] 05/30/2024 10:30 AM EDT [place]ointment [place] [phone] documented as of this encounter Procedures Procedure Name Priority Date/Time Associated Diagnosis Comments CBC (WITH DIFF) Routine 10/09/2018 COMPREHENSIVE METABOLIC PANEL Routine 10/09/2018 documented in this encounter Results * Comprehensive metabolic panel (non-fasting) (10/09/2018) Pathologist [facility] Protein, Total 7.8 Albumin 4.0 Bilirubin, Total 0.3 Bilirubin, Direct 0.11 Alkaline Phosphatase 70 Aspartate Aminotransferase 21 Alanine Aminotransferase 51 Blood specimen (specimen) 10/09/2018 Historical Provider CHEMISTRY ORDERAB LES * CBC (with Diff) (10/09/2018) White Blood Cell 6.27 Red Blood Cell 5.20 Hemoglobin 15.1 Hematocrit 43.6 Mean Cell Volume 83.8 Mean Cell Hemoglobin 29.0 Mean Cell Hemoglobin Concentration 34.6 RDW coefficient of variation 13 Platelet 238 Mean Platelet Volume 10.9 Neutrophil % 64.1 Lymph % 24.4 Monocyte % 8.8 Eosinophil Manual 2.2 Basophil % 0.3 Immature Gran % 0.2 Neutrophil Absolute (ANC) - Automated 4.02 Lymph Absolute Manual 1.53 Monocyte Abs 0.55 Eos Absolute Manual 0.14 Baso Absolute Manual 0.02 Blood specimen (specimen) 10/09/2018 Historical Provider HEMATOLOGY ORDERA BLES documented in this encounter Visit Diagnoses Not on filedocumented in this encounter Care Teams Recreation Therapy Teacher Relationship Specialty Start Date End Date Rodriguez Roberts MD [address] [place] [address] [place] [address] PCP - General 11/15/13 02/09/21 documented as of this encounter
--- OUTSIDE RECORDS SUMMARY | 2024-01-15 20:04 | XMS_ITS | Encounter Summary ---
Author Organization [facility] [place] [address] Care Team Providers Care Jira Developer Name Role Phone Rodriguez Roberts MD Primary Care Provider [phone] Reason for Referral * Diagnostic Test (Routine) - Closed Specialty Diagnoses / Procedures Referred By Mallorie swift Referred To Contact Radiology Diagnoses Multiple sclerosis Procedures MRI Brain wwo Contrast (Generic) Ada York III, MD [facility] [place] [address] [place] [address] Referral ID Status Reason Start Date Expiration Date V isits Requested Visits Authorized [id number] Closed Specialty Service Requested 11/05/2019 05/03/2020 1 1 Reason for Visit * Reason Onset Date Comments Questions 10/07/2019 Encounter Details Date Type Department Care Team (Late st Contact Info) Description 10/07/2019 [place] [phone] Ada York III, MD [facility] [place] [address] Questions Social History Tobacco Use Types Packs/Day Years [...] * Telephone Encounter - Babs Perry - 10/15/2019 8:48 AM EDT Pt successfully scheduled. * Telephone Encounter - Babs Perry - 10/10/2019 11:29 AM EDT Pt to be scheduled for MRI Brain wwo Contrast. Can be coordinated for same day as f/u w/ Dr. York. * Addendum Note - Ada York III, MD - 10/07/2019 1:17 PM EDTAddended by: ADA YORK III on: 10/07/2019 01:17 PM Modules accepted: Orders * Telephone Encounter - Audrey Caldwell RN - 10/07/2019 12:42 PM EDT will discuss with Dr York and let pt know if he needs any imaging prior to appt * Telephone Encounter - Joon Terrell - 10/07/2019 12:11 PM EDT Call Center / Production Tester Message - General Issue Call Provider patient sees in Clinic: Dr. York Caller and relationship (if other than patient-full name): self Call back number: [phone] Ok to leave a message: yes Reason for call: Patient called to schedule a follow up which this agent scheduled. Patient was unsure at time of the appointment if he needs a routine Mri to go along with his follow up. Please callto discuss. Disposition of Call (choose one and remove others): ??? Routine Message sent to the Nurse: yes documented in this encounter Plan of Treatment Upcoming Encounters Date Type Department Care Team (Late st Contact Info) Description 01/19/2024 1:00 PM EST Office Visit Urology at [facility] [address] [address] Desean Coronado MD [facility] [address] 01/22/2024 12:30 PM EST Office Visit Neurosurgery at [facility] [address] [place] [address] Hema Escalante MD [address] [facility] [address] [place] [address] Liudmila Oates PA [address] [facility] [address] [place] [address] 02/01/2024 12:00 PM EST Office [place] [phone] Georgette Monae PA [facility] [place] [address] 05/30/2024 10:30 AM EDT Appointment [place] [phone] documented as of this encounter Results * MRI Brain wwo Contrast (Generic) (11/11/2019 7:24 AM EDT) Anatomical Region Laterality Modality Head Magnetic Resonan ce Impressions 11/11/2019 10:55 AM EDT No new or enhancing white matter lesion in the brain. I have personally reviewed the image(s) and the resident's interpretation and agree with the findings, John Hartman MD at 11/11/2019 10:55 AM Thank you for letting us participate in the care of this patient. For questions regarding this report, please contact the number below. ? Electronically signed by: John Hartman MD, [facility] ([phone]), at 11/11/2019 10:55 AM Narrative 11/11/2019 10:55 AM EDT EXAMINATION: MRI BRAIN WWO CONTRAST (GENERIC) CLINICAL HISTORY: Multiple sclerosis, monitor TECHNIQUE: MRI of the brain was performed before and after the intravenous administration of 20cc Dotarem. COMPARISON: MR brain 10/26/2018 FINDINGS: There is no mass or mass effect. Similar appearance of white matter lesions within the subcortical white matter and right centrum semiovale. There is new lesion or abnormal enhancement. No diffusion-weighted abnormality. No extra-axial collection. Ventricles are unchanged in caliber and contour. There is approximately 6 mm of descent of the cerebellar tonsils through the foramen magnum, similar to prior. Proximal intracranial vascular flow voids. There is fluid signal within the left mastoid air cells, the remainder the visualized paranasal sinuses and right mastoid air cells are normal in signal. Procedure Note John Hartman MD - 11/11/2019 EXAMINATION: MRI BRAIN WWO CONTRAST (GENERIC) CLINICAL HISTORY: Multiple sclerosis, monitor TECHNIQUE: MRI of the brain was performed before and after the intravenousadministration of 20cc Dotarem. COMPARISON: MR brain 10/26/2018 FINDINGS: There is no mass or mass effect. Similar appearance of white matterlesions within the subcortical white matter and right centrum semiovale. There isnew lesion or abnormal enhancement. No diffusion-weighted abnormality. No extra-axial collection. Ventricles are unchanged in caliber and contour.There is approximately 6 mm of descent of the cerebellar tonsils through theforamen magnum, similar to prior. Proximal intracranial vascular flow voids. Thereis fluid signal within the left mastoid air cells, the remainder thevisualized paranasal sinuses and right mastoid air cells are normal in signal. IMPRESSION No new or enhancing white matter lesion in the brain. I have personally reviewed the image(s) and the resident's interpretationand agree with the findings, John Hartman MD at 11/11/2019 10:55 AM Thank you for letting us participate in the care of this patient. Forquestions regarding this report, please contact the number below. Electronically signed by: John Hartman MD, [facility]([phone]), at 11/11/2019 10:55 AM Ada York III, MD IMG MRI ORDERABLE S documented in this encounter Visit Diagnoses Diagnosis Multiple sclerosis Multiple sclerosis documented in this encounter Care Teams Jira Developer Relationship Specialty Start Date End Date Rodriguez Roberts MD [address] [place] [address] PCP - General 11/15/13 02/09/21 documented as of this encounter
--- OUTSIDE RECORDS SUMMARY | 2024-01-15 20:04 | XMS_ITS | Encounter Summary ---
Author Organization [facility] Address [facility] [place] [place] [address] Care Team Providers Care Hospice Educator Name Role Phone Rodriguez Roberts MD Primary Care Provider [phone] Reason for Visit * Reason Onset Date Comments Appointment 11/07/2019 Encounter Details Date Type Department Care Team (Late st Contact Info) Description 11/07/2019 [place] [address] Erick York III, MD [facility] [place] [address] Appointment Social History Tobacco Use Types Packs/Day [...] Telephone Encounter - Audrey Lucas RN - 11/11/2019 8:[address] York: He can leave the paperwork for me. Otherwise he can reschedule to a different time. I attempted to phone pt Monday11/08/19 and left detailed message on named voice mail per Dr. York above. * Telephone Encounter - WillardJennieAna E - 11/07/2019 4:42 PM EDT Call Center / Agenda Message - General Issue Call Provider patient sees in Clinic: Erick York Caller and relationship (if other than patient-full name): Patient Call back number: [phone] Ok to leave a message: yes Reason for call: Patient called to see if appointment can be extended for a longer time 11/10. Patient needs help from the provider to fill out paperwork. Please contact back to discuss. Disposition of Call (choose one and remove others): ??? Routine message sent to Agenda: documented in this encounter Plan of Treatment Upcoming Encounters Date Type Department Care Team (Late st Contact Info) Description 01/19/2024 1:00 PM EST Office Visit Urology at [facility] [address] [place] [phone] Desean Coronado MD [facility] [place] [address] 01/22/2024 12:30 PM EST Office Visit Neurosurgery at [facility] [address] [place] [address] Hema Escalante MD [address] [facility] [address] Liudmila Oates PA [address] [facility] [place] [address] 02/01/2024 12:00 PM EST [place] [address] Georgette Monae PA [facility] [place] [address] 05/30/2024 10:30 AM EDT [place] [phone] documented as of this encounter Visit Diagnoses Not on filedocumented in this encounter Care Teams Hospice Educator Relationship Specialty Start Date End Date Rodriguez Roberts MD [address] [place] [address] PCP - General 11/15/13 02/09/21 documented as of this encounter
--- OUTSIDE RECORDS SUMMARY | 2024-01-15 20:04 | XMS_ITS | Encounter Summary ---
Author Organization [facility] Address [facility] [place] [place] [place] [address] Care Team Providers Care Die Polisher Name Role Phone Rodriguez Roberts MD Primary Care Provider [phone] Reason for Visit * Reason Onset Date Comments Medication Refill 06/02/2018 Encounter Details Date Type Department Care Team (Late st Contact Info) Description 06/02/2018 [place] [address] Melissa Blake MD [facility] [place] [address] Social History Tobacco Use Types Packs/Day Years [...] 1:00 PM EST Office Visit Urology at [facility] [address] [place] [phone] Desean Coronado MD [facility] [place] [address] 01/22/2024 12:30 PM EST Office Visit Neurosurgery at [facility] [address] [place] [address] [place] [address] Liudmila [place]ates [place] [address] 02/01/2024 12:00 PM EST Office [place] [address] Georgette Monae PA [facility] [place] [address] 05/30/2024 10:30 AM EDT Appointment [place] [phone] documented as of this encounter Visit Diagnoses Not on filedocumented in this encounter Care Teams Die Polisher Relationship Specialty Start Date End Date Rodriguez oRberts MD [address] [place] [address] PCP - General 11/15/13 02/09/21 documented as of this encounter
--- OUTSIDE RECORDS SUMMARY | 2024-01-15 20:04 | XMS_ITS | Encounter Summary ---
Author Organization [facility] [place] [address] Care Team Providers Care Gericare Aide Name Role Phone Rodriguez Roberts MD Primary Care Provider [phone] Reason for Referral * Diagnostic Test (Routine) - Closed Specialty Diagnoses / Procedures Referred By Contac t Referred To Contact Radiology Diagnoses Multiple sclerosis Procedures MRI Thoracic Spine wwo Erick Gaffney III, MD [facility] [place] [place] [address] [place] [address] Referral ID Status Reason Start Date Expiration Date V isits Requested Visits Authorized [id number] Closed Specialty Service Requested 11/12/2019 05/10/2020 1 1 * Diagnostic Test (Routine) - Closed Specialty Diagnoses / Procedures Referred By Contac t Referred To Contact Radiology Diagnoses Multiple sclerosis Procedures MRI Cervical Spine wwo Erick Gaffney III, MD [facility] [place] [address] [place] [address] Referral ID Status Reason Start Date Expiration Date V isits Requested Visits Authorized [id number] Closed Specialty Service Requested 11/12/2019 05/10/2020 1 1 Encounter Details Date Type Department Care Team (Late st Contact Info) Description 11/11/2019 8:30 AM EDT Office [place] [address] Erick York III, MD [facility] [place] [address] Multiple sclerosis Social History Tobacco Use Types [...] Sign Reading Time Taken Comments Blood Pressure 132/81 11/11/2019 8:22 AM EDT Pulse 75 11/11/2019 8:22 AM EDT Temperature - - Respiratory Rate - - Oxygen Saturation 98% 11/11/2019 8:22 AM EDT Inhaled Oxygen Concentration - - Weight 99.3 kg (219 lb) 11/11/2019 8:22 AM EDT Height 175.3 cm (5' 9) 11/11/2019 8:22 AM EDT Body Mass Index 32.34 11/11/2019 8:22 AM EDT documented in this encounter Patient Instructions * Patient Instructions* Erick York III, MD - 11/11/2019 8:30 AM EDT I think that your MRI scan today shows 1 new lesion that could cause more difficulty with balance. Because of your worsening walking and spasms I would like to repeat MRI scans of your cervical and thoracic spine - especially to evaluate for the disc at T8-9. I recommend taking Tecfidera 2 times daily without missed doses. Take 15 minutes after starting to eat. You can also try Aspirin 81mg about 15-30 prior to each dose. Let's do a follow-up via telehealth in about 1 month. Erick York III, MD documented in this encounter Progress Notes * Erick York III, MD - 11/11/2019 8:30 AM EDT Multiple Sclerosis [facility] Follow-up Visit Dear Rodriguez Roberts MD, I saw Erick Chacon in clinic today in follow-up for newly diagnosed MS. He was unaccompanied at today's visit. Below is my progress note with impression and plan. Please do not hesitate to callwith any questions. DISEASE SUMMARY: Principal neurologic diagnosis: MS Onset: 2018 Diagnosis of MS: 03/2018 CSF: 13 OCBs, normal IgG index, normal cell# and protein Disease course at onset: relapsing Current disease course: relapsing Relapses: 2019 - bilateral leg, R arm and neck numbness EDSS (today): between 2-4.5 MS Severity Score (EDSS and Disease Duration): too early myD-H Multiple Sclerosis 08/25/2014 07/18/2018 09/27/2018 11/11/2019 Audit Sub Scores - - 1 (Low Risk) - Pain Typical 8 7 5 4 Pain Now 7 4 2 2 Pain at Rest 3 5 2 2 Pain with Activity 10 10 7 7 PHQ-9 Depression - 12 (Moderate Depression) 15 (Moderately Severe Depression) 17 (Moderately SevereDepression) MSIS-29 - 93 104 92 Treatment History Previous disease therapies: none Current disease therapies: Tecfidera (May 2018) Imaging History Most recent MRI brain:11/11/2019 Most recent MRI cervical spine: 10/26/2018 Most recent MRI thoracic spine: 04/04/2018 Medication-related monitoring: see below Interval History: Erick was last seen in clinic in October 2018. At that time he did not report any new neurological symptoms consistent with MS relapse. His walking ability (reduced) and muscle spasms continued. He was advised to increase the baclofen to 10 mg in the morning, 10 mg in the afternoon and 20 mg nightly. He continued on Tecfidera though reported ongoing intermittent flushing following dosing but did not want to switch medications. In the interim he missed follow-up appointments with me in January 2019, February 2019, and March 2019. Today, Erick reports no new neurological symptoms concerning for MS relapse. He has continued difficulties with ambulation and only able to walk approximately half a mile before he needs to stop or has more difficulties with balance. This is not dramatically changed in the course of the past year, although he does feel like his leg strength has worsened gradually over that t mana period. While he has continued on Tecfidera, he is not taking doses 2 to 3 days (4-6 doses) per week. This is primarily related to either forgetting his doses or adverse side effects. MS Symptom Review: Cognition: + forgetful with house keys - has locked himself out of his house on a few occasions; sometimes forgetting his phone; has left his oven on; he has started to use a pill box to help remind him on medications Mood: continued significant depression, no SI; has had negative thoughts of hurting someone; he hasbeen under the care of psychiatrist and counselor - but both no longer providing care ?? On venlafaxine 150mg daily - but only taking every other day - taking daily makes him feel too spacey ?? On diazepam 2.5mg prn for anxiety Spasms/spasticity: Continues to have muscle spasms primarily in the evening. He is taking baclofen 10 mg in the morning, 10 mg in the afternoon, and 20 mg nightly as discussed at his last appointmentin June. Neuropathic pain: He is currently taking gabapentin 100 mg 6 times daily Walking: Stable-he reports difficulty with walking more than 0.5mile due to balance difficulties - he has started to use a cane for longer walks/hikes. Turning quickly can worsen his balance Falls: no falls in the past year Bladder: stopped taking tamsulosin; feels as though he does empty his bladder Bowel: + constipation, started on Miralax which he takes every other day - only having BM once per week. He has not tried talking Miralax dayil Current Medications: reviewed and updated in EMR Physical Examination Vitals 11/11/2019 BP 132/81 Pulse 75 Temp Resp Height (Sammarinese) 69 Height (Metric) 175.3 cm Weight (Sammarinese) 219 lbs Weight (Metric) 99.338 kg BMI (Calculated) 32.34 kg/m2 Pulse Oximetry 98 O2 Device BSA 2.2 Hair, skin, nails, and joints were normal. [...] was no pronator drift. Upper extremities (R/L) Coffee Attendant 5/5 Finger abduction 5/5 Finger extension 5/5 Wrist extension 5/5 Elbow flexion 5/5 Elbow extension 5/5 Shoulder abduction 5/5 Lower extremities (R/L) Hip flexion 5-/5 Knee extension 5/5 Knee flexion 5/5 Ankle plantarflexion 5/5 Ankle dorsiflexion 5/5 Deep tendon reflexes (R/L): Biceps 2+/2+ Triceps 2+/2+ Knees 3+/3+ Ankles 3+/3+ Temperature sensation was decreased in the LLE. There is no clear sensory level on the back. Vibratory sensation was slightly reduced in the LLE to about 6 seconds at the feet Negative Romberg. No dysmetria with [id number]-ez-[id number] testing bilaterally. Finger tapping was slowed on the R fast on the L and accurate bilaterally. Standard gait was slightly slowed. He had difficulty with tandem walk due to recurrent sway to the right. Timed 25-foot walk (sec): 4.5 (last 4.0 in 10/2018) Assistive device: none. QUANTITATIVE SCORES: Vision 0 Brainstem 0 Pyramidal 2 Cerebellar 0 Sensory 2 B&B 1 Cerebral 0 Ambulation 1 EDSS 2.5 REVIEW OF IMAGING STUDIES: MRI brain with and without contrast 11/11/2019 -official read was no new lesions, but I wonder whether or not there could be a small new right cerebellar lesion. REVIEW OF LABORATORY STUDIES: 09/11/2019 CBC and CMP -unremarkable Assessment: ICD-10-CM 1. Multiple sclerosis G35 MRI Cervical Spine wwo Contrast MRI Thoracic Spine wwo Contrast Erick Chacon is a 34 y.o. man with recent diagnosis of relapsing multiple sclerosis with activity (March 2018) who was started on Tecfidera in May 2018. His last seen in clinic approximately 1 year ago. Over that timeframe he has not clearly had any new symptoms concerning for an MS relapse. However he has had worsening difficulty with walking and balance. His neurological examination today is notable for mild worsening leg weakness as well as gait instability. MRI scan of his brain completed today shows 1 possible new T2 hyperintense right cerebellar lesion (though neuroradiology read was stable) in comparison to prior MRI scan. 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 Therefore plan to repeat as MRI scans of the cervical and thoracic spine in the near future. He is not taking Tecfidera on a consistent basis. Some of this may be due to adverse side effects. We discussed ways to decrease potential side effects including eating food prior to dosing as well as low-dose aspirin prior to each dose. We also discussed switching to an alternative immunotherapy, such as infusion therapy like Ocrevus. He is concerned about the possibility of more significant immunosuppression on Ocrevus and would rather stay with Tecfidera with improved medication adherence. Monitoring Plan: 1. Repeat MRI cervical and thoracic spine wwo contrast - scheduled for 11/16/2019 2. Recent CBC diff and LFTs from08/2019 were unremarkable - continue every 3 month monitoring Treatment Plan: 1. Continue on Tecfidera 240 mg twice daily - agrees to be more adherent. Will eat ~ 15 minutes prior to each dose, trial of ASA 81mg prior to each dose to reduce side effects. He is not interested in switching medications. 2. Continue baclofen 10 mg in a.m., 10 mg early p.m., and 20 mg nightly Follow-Up: 1 month via telehealth Thank you for allowing us to participate in [facility]. If you have questions or concerns please do not hesitate to call our clinic at [phone]. Erick York III, MD [facility] Multiple Sclerosis [facility] More than 50% of this 28 minute [id number]-[id number] interaction was spent in counseling on diagnosis, prognosis, and medication and symptom management. 10:01 AM 11/12/2019 documented in this encounter Plan of Treatment Upcoming Encounters Date Type Department Care Team (Late st Contact Info) Description 01/19/2024 1:00 PM EST Office Visit Urology at [facility] [address] [place] [phone] Desean Coronado MD [facility] [place] [address] 01/22/2024 12:30 PM EST Office Visit Neurosurgery at [facility] [address] [place] [address] Hema Escalante MD [address] [facility] [address] [place] [address] Liudmila Oates PA [address] [facility] [place] [address] 02/01/2024 12:00 PM EST Office [place] [phone] Georgette Monae PA [facility] [place] [address] 05/30/2024 10:30 AM EDT Appointment [place] [phone] documented as of this encounter Results * [...] sclerosis documented in this encounter Care Teams Gericare Aide Relationship Specialty Start Date End Date Rodriguez Roberts MD [address] [facility] [facility] [facility] [place] [address] PCP - General 11/15/13 02/09/21 documented as of this encounter
--- OUTSIDE RECORDS SUMMARY | 2024-01-15 20:04 | XMS_ITS | Encounter Summary ---
Author Organization [facility] Address [facility] Melinda [place]иван [place] [address] Care Team Providers Care General Ii Farmworker Name Role Phone Rodriguez Roberts MD Primary Care Provider [phone] Encounter Details Date Type Department Care Team (Late st Contact Info) Description 05/25/2018 External [place] [address] Erick York III, MD [facility] [place] [address] Social History Tobacco Use Types Packs/Day Years [...] 1:00 PM EST Office Visit [facility] at [facility] [facility] [address] [place] [phone] Desean Coronado MD [facility] [place] [address] 01/22/2024 12:30 PM EST Office Visit [facility]surgery at [facility] [place] [phone] Hema Escalante MD [address] [address] Liudmila Oates PA [address] [address] 02/01/2024 12:00 PM EST [place] [address] Georgette Monae PA [facility] [place] [address] 05/30/2024 10:30 AM EDT [place] [address] documented as of this encounter Procedures Procedure Name Priority Date/Time Associated Diagnosis Comments CBC (WITH DIFF) Routine 05/22/2018 HEPATIC FUNCTION PANEL Routine 05/22/2018 documented in this encounter Results * Hepatic Function Panel (05/22/2018) Pathologist [facility] Protein, Total 7.3 Albumin 3.9 Bilirubin, Total 0.4 Bilirubin, Direct 0.12 Alkaline Phosphatase 67 Aspartate Aminotransferase 22 Alanine Aminotransferase 29 Blood specimen (specimen) 05/22/2018 Historical Provider CHEMISTRY ORDERAB LES * (ABNORMAL) CBC (with Diff) (05/22/2018) Pathologist [facility] White Blood Cell 6.99 Red Blood Cell 5.09 Hemoglobin 14.6 Hematocrit 42.8 Mean Cell Volume 84.1 Mean Cell Hemoglobin 28.7 Mean Cell Hemoglobin Concentration 34.1 RDW coefficient of variation 13.2 Platelet 226 Mean Platelet Volume 11.7(H) Neutrophil % 58.9 Lymph % 33.2 Monocyte % 6.7 Eosinophil Manual 0.7 Basophil % 0.4 Immature Gran % 0.1 Neutrophil Absolute (ANC) - Automated 4.11 Lymph Absolute Manual 2.32 Monocyte Abs 0.47 Eos Absolute Manual 0.05 Baso Absolute Manual 0.03 Blood specimen (specimen) 05/22/2018 Historical Provider MD HEMATOLOGY ORDERA BLES documented in this encounter Visit Diagnoses Not on filedocumented in this encounter Care Teams General Ii Farmworker Relationship Specialty Start Date End Date Rodriguez Roberts MD [address] [place] [address] [address] [place] [address] PCP - General 11/15/13 02/09/21 documented as of this encounter
--- OUTSIDE RECORDS SUMMARY | 2024-01-15 20:04 | XMS_ITS | Encounter Summary ---
[facility] Address [facility] [place] [place] [address] Care Team Providers Care Blacksmith Farm Name Role Phone Rodriguez Roberts MD Primary Care Provider [phone] Encounter Details Date Type Department Care Team (Late st Contact Info) Description 11/28/2019 Telephone [place] [address] Erick York III, MD [facility] [place] [address] Social History Tobacco Use Types Packs/Day Years [...] 1:00 PM EST Office Visit [facility] at [place] [facility] [address] [place] [phone] Desean Coronado MD [facility] [place] [address] 01/22/2024 12:30 PM EST Office [place] [address] Hema [place] [address] Liudmila [place] [address] 02/01/2024 12:00 PM EST Office [place] [phone] Georgette Monae PA [facility] [place] [address] 05/30/2024 10:30 AM EDT Appointment [place] [phone] documented as of this encounter Visit Diagnoses Not on filedocumented in this encounter Care Teams Blacksmith Farm Relationship Specialty Start Date End Date Rodriguez Roberts MD [address] [place] [address] PCP - General 11/15/13 02/09/21 documented as of this encounter
--- OUTSIDE RECORDS SUMMARY | 2024-01-15 20:04 | XMS_ITS | Encounter Summary ---
Author Organization [facility], [facility] Address [facility] [place] [place] [address] Care Team Providers Care Tire Manager Name Role Phone Rodriguez Roberts MD Primary Care Provider [phone] Reason for Visit * Reason Onset Date Comments Other 10/08/2018 Encounter Details Date Type Department Care Team (Late st Contact Info) Description 10/08/2018 Telephone [place] [address] Erick York III, MD [facility] [place] [address] Other Social History Tobacco Use Types Packs/Day [...] Telephone Encounter - Audrey Lucas RN - 10/09/2018 1:49 PM EDT Pt communicating via My * Telephone Encounter - Audrey Lucas RN - 10/08/2018 12:09 PM EDT Last visit 07/18/18 Next visit 10/26/18 I attempted to phone pt back. There was no answer. Message left on named voice mail to call back [phone]. Lab orders faxed. * Telephone Encounter - Nova [place] - 10/08/2018 11:46 AM EDT Clinical [place] Message Caller: Erick If not Pt / Relation to pt: Call back Number: [phone] Reason for call: Asking that labs for his white blood cell count and liver test [facility] he states he has been having some sharp pain. Message/information for the nurse: States that he has been having what feels like electric shocksin his head started last week. States that they are sharp tight prick. Feels like stabbing pain. States it feels like what it would if getting an electric shock. Disposition of Call ?? Routine Message sent to the Nurse documented in this encounter Plan of Treatment Upcoming Encounters Date Type Department Care Team (Late st Contact Info) Description 01/19/2024 1:00 PM EST Office Visit Urology at [place] [facility] [address] [place] [phone] Desean Coronado MD [facility] [place] [address] 01/22/2024 12:30 PM EST Office Visit Neurosurgery at [facility] 10 [place] [address] Hema Escalante MD 10 [facility] [place] [address] Liudmila Oates PA 10 [facility] [place] [address] 02/01/2024 12:00 PM EST Office [place] [address] Georgette Monae PA [facility] [place] [address] 05/30/2024 10:30 AM EDT Appointment [place] [address] documented as of this encounter Visit Diagnoses Not on filedocumented in this encounter Care Teams Tire Manager Relationship Specialty Start Date End Date Rodriguez Roberts MD [address] [place] [address] PCP - General 11/15/13 02/09/21 documented as of this encounter
--- OUTSIDE RECORDS SUMMARY | 2024-01-15 20:04 | XMS_ITS | Encounter Summary ---
Author Organization [facility] Address [facility] [place] [address] Care Team Providers Care Food Service Worker Name Role Phone Rodriguez Roberts MD Primary Care Provider [phone] Reason for Visit * Reason Onset Date Comments Medication Refill 05/27/2019 Encounter Details Date Type Department Care Team (Late st Contact Info) Description 05/27/2019 [place] [address] Erick York III, MD [facility] [place] [address] Multiple sclerosis Social History Tobacco Use Types [...] 1:00 PM EST Office Visit [facility] at [place] [facility] [address] [place] [phone] Desean Coronado MD [facility] [place] [address] 01/22/2024 12:30 PM EST Office Visit Neurosurgery at [facility] 10 [facility] [place] [address] Hema Escalante MD [address] [place] [address] Liudmila Oates PA [address] [place] [address] 02/01/2024 12:00 PM EST [place] [phone] Georgette Monae PA [facility] [place] [address] 05/30/2024 10:30 AM EDT [place] [phone] documented as of this encounter Visit Diagnoses Diagnosis Multiple sclerosis documented in this encounter Care Teams Food Service Worker Relationship Specialty Start Date End Date Rodriguez Roberts MD [address] [place] [address] PCP - General 11/15/13 02/09/21 documented as of this encounter
--- OUTSIDE RECORDS SUMMARY | 2024-01-15 20:04 | XMS_ITS | Encounter Summary ---
Author Organization [facility] Address [facility] [place] [address] Care Team Providers Care Swimming Pool Installer And Servicer Name Role Phone Rodriguez Roberts MD Primary Care Provider [phone] Reason for Visit * Reason Onset Date Comments Other 05/16/2018 tecfidera start form Encounter Details Date Type Department Care Team (Late st Contact Info) Description 05/16/2018 [place] [address] Erick York III, MD [facility] [place] [address] Other (tecfidera start form) Social History Tobacco Use Types [...] Telephone Encounter - Audrey Lucas RN - 05/16/2018 4:27 PM EDT tecfidera start form faxed to [facility] on 05/15/18 at 4:28 pm to fax number [phone]. Copy sent tomedical records to be scanned to chart. documented in this encounter Plan of Treatment Upcoming Encounters Date Type Department Care Team (Late st Contact Info) Description 01/19/2024 1:00 PM EST Office Visit [facility] at [place] [facility] [address] [place] [phone] Desean Coronado MD [facility] [place] [address] 01/22/2024 12:30 PM EST Office Visit Neurosurgery at [facility] 10 [place] [phone] Hema Escalante MD 10 [facility] [address] Liudmila Oates PA 10 [facility] [address] 02/01/2024 12:00 PM EST Office [place] [phone] Georgette Monae PA [facility] [place] [address] 05/30/2024 10:30 AM EDT Appointment [place] [phone] documented as of this encounter Visit Diagnoses Not on filedocumented in this encounter Care Teams Swimming Pool Installer And Servicer Relationship Specialty Start Date End Date Rodriguez Roberts MD [address] [place] [address] PCP - General 11/15/13 02/09/21 documented as of this encounter
--- OUTSIDE RECORDS SUMMARY | 2024-01-15 20:04 | XMS_ITS | Encounter Summary ---
Author Organization [facility] Address [facility] Melinda [place]yerив[place] [address] Care Team Providers Care Passenger Relations Representative Name Role Phone Rodriguez Roberts MD Primary Care Provider [phone] Reason for Visit * Reason Comments Medication Refill Encounter Details Date Type Department Care Team (Late st Contact Info) Description 05/24/2019 [place] [address] Erick York III, MD [facility] [place] [address] Multiple sclerosis Social History Tobacco Use Types [...] 1:00 PM EST Office Visit [facility] at [place] [facility] [address] [place] [phone] Desean Coronado MD [facility] [place] [address] 01/22/2024 12:30 PM EST Office Visit Neurosurgery at [facility] [address] [place] [address] Hema Escalante MD [address] [place] [address] Liudmila Oates PA [facility] [place] [address] 02/01/2024 12:00 PM EST [place] [address] Georgette Monae PA [facility] [place] [address] 05/30/2024 10:30 AM EDT [place] [phone] documented as of this encounter Visit Diagnoses Diagnosis Multiple sclerosis documented in this encounter Care Teams Passenger Relations Representative Relationship Specialty Start Date End Date Rodriguez Roberts MD [address] [place] [address] PCP - General 11/15/13 02/09/21 documented as of this encounter
--- OUTSIDE RECORDS SUMMARY | 2024-01-15 20:04 | XMS_ITS | Encounter Summary ---
Author Organization [facility] Address [facility] [place] [address] Care Team Providers Care Brim Blocker Name Role Phone Lamont Owusu MD Primary Care Provider [phone] Reason for Visit * Reason Comments Medication Refill Encounter Details Date Type Department Care Team (Late st Contact Info) Description 10/25/2019 [place] [address] Erick York III, MD [facility] [place] [address] Multiple sclerosis Social History Tobacco Use Types [...] 1:00 PM EST Office Visit [facility] at [place] [facility] [address] [place] [phone] Desean Coronado MD [facility] [place] [address] 01/22/2024 12:30 PM EST Office Visit Neurosurgery at [facility] [address] [place] [address] Hema Escalante MD [address] [place] [address] Liudmila Oates PA [facility] [place] [address] 02/01/2024 12:00 PM EST Office [place] [phone] Georgette Monae PA [facility] [place] [address] 05/30/2024 10:30 AM EDT Appointment [place] [phone] documented as of this encounter Goals Goal Patient Goal Type Associated Problems Recent Progress Patient-Stated? Author prevention of MS relapse Patient Facing Action Plan Dionicio Almeida, [facility] documented as of this encounter Visit Diagnoses Diagnosis Multiple sclerosis documented in this encounter Care Teams Brim Blocker Relationship Specialty Start Date End Date Lamont Owusu MD [address] [place] [address] PCP - General Family Medicine 02/10/21 documented as of this encounter
--- OUTSIDE RECORDS SUMMARY | 2024-01-15 20:04 | XMS_ITS | Encounter Summary ---
Author Organization [facility] Address [facility] [place] [address] Care Team Providers Care Nursing Clerk Name Role Phone Rodriguez Roberts MD Primary Care Provider [phone] Reason for Visit * Reason Onset Date Comments Prior Authorization 06/20/2018 Encounter Details Date Type Department Care Team (Late st Contact Info) Description 06/20/2018 [place] [address] Erick York III, MD [facility] [place] [place] [address] Prior Authorization Social History Tobacco Use Types Packs/Day Years [...] * Telephone Encounter - Nova Montana - 06/20/2018 2:47 PM EDT Clinical [place] Message Caller: Zarha If not Pt / Relation to pt: Regan Call back Number: [phone] Best time to reach caller: Anytime Reason for call: Rejection of Tecfidera Message/information for the nurse: States that it will go through tomorrow as it was too soon of a fill. Disposition of Call ?? Routine Message sent to Meenu documented in this encounter Plan of Treatment Upcoming Encounters Date Type Department Care Team (Late st Contact Info) Description 01/19/2024 1:00 PM EST Office Visit [facility]rology at [place] [facility] [address] [place] [phone] Desean Coronado MD [facility] [place] [address] 01/22/2024 12:30 PM EST Office Visit Neurosurgery at [facility] 10 [place] [phone] Hema Escalante MD 10 [facility] [place] [address] Liudmila Oates PA [address] [facility] [place] [address] 02/01/2024 12:00 PM EST [place] [phone] Georgette Monae PA [facility] [place] [place] [address] 05/30/2024 10:30 AM EDT [place] [phone] documented as of this encounter Visit Diagnoses Not on filedocumented in this encounter Care Teams Nursing Clerk Relationship Specialty Start Date End Date Rodriguez Roberts MD [address] [place] [address] PCP - General 11/15/13 02/09/21 documented as of this encounter
--- OUTSIDE RECORDS SUMMARY | 2024-01-15 20:04 | XMS_ITS | Encounter Summary ---
Author Organization [facility] [place] [address] Care Team Providers Care Risk Management Internship Name Role Phone Rodriguez Roberts MD Primary Care Provider [phone] Reason for Referral * Diagnostic Test (Routine) - Closed Specialty Diagnoses / Procedures Referred By Contac t Referred To Contact Radiology Diagnoses Multiple sclerosis Procedures MRI Cervical Spine wwo Contrast Erick York III, MD [facility] [place] [address] [place] [address] Referral ID Status Reason Start Date Expiration Date V isits Requested Visits Authorized [id number] Closed Specialty Service Requested 05/16/2018 05/16/2019 1 1 * Diagnostic Test (Routine) - Closed Specialty Diagnoses / Procedures Referred By Contac t Referred To Contact Radiology Diagnoses Multiple sclerosis Procedures MRI Brain wwo Contrast (Generic) Erick York III, MD [facility] [place] [address] [place] [address] Referral ID Status Reason Start Date Expiration Date V isits Requested Visits Authorized [id number] Closed Specialty Service Requested 10/04/2018 01/02/2019 1 1 Reason for Visit * Diagnostic Test (Routine) - Closed Specialty Diagnoses / Procedures Referred By Mallorie t Referred To Contact Radiology Diagnoses Multiple sclerosis Procedures MRI Brain wwo Contrast (Generic) Erick York III, MD [facility] [place] [address] [facility] [place] [address] Referral ID Status Reason Start Date Expiration Date V isits Requested Visits Authorized [id number] Closed Specialty Service Requested 10/04/2018 01/02/2019 1 1 Encounter Details Date Type Department Care Team (Latest Contact Info) Description 10/26/2018 11:50 AM EDT - 10/26/2018 11:59 PM EDT Hospital [place] [address] Erick York III, MD [facility] [place] [address] Multiple sclerosis Discharge Disposition: Home [...] by mouth 3 times daily. 0 10/17/2014 gabapentin (NEURONTIN) 100 mg Capsule Take 100 mg by mouth 3 times daily. 2 10/13/2018 12/11/2019 DULoxetine (CYMBALTA) 20 mg Capsule, Delayed Release(E.C.)Indicatio ns:Neuropathic pain,Depression, unspecified depression type Take 1 capsule by mouth daily. 30 tablet 3 10/26/2018 04/30/2019 baclofen (LIORESAL) 10 mg TabletIndications:Mult iple sclerosis PO. 10mg AM, 10mg PM, 15-20mg in the evening. 120 tablet 3 10/26/2018 05/27/2019 dimethyl fumarate (TECFIDERA) 120 mg (14)- 240 mg (46) Capsule, Delayed Release(E.C.) Take by mouth. Continue 240 mg BID after titration pack 05/24/2019 NIFEdipine (ADALAT CC) 30 mg Tablet Sustained Release Take 30 mg by mouth daily. 06/01/2020 arginine 500 mg Tablet Take 1,000 mg by mouth daily. 04/30/2019 documented as of this encounter Plan of Treatment Upcoming Encounters Date Type Department Care Team (Late st Contact Info) Description 01/19/2024 1:00 PM EST Office Visit [facility]rology at [place] [facility] [address] [place] [phone] Desean Coronado MD [facility] [place] [address] 01/22/2024 12:30 PM EST Office Visit Neurosurgery at [facility] [place] [address] Hema Escalante MD [facility] [place] [address] Liudmila Oates PA [facility] [place] [address] 02/01/2024 12:00 PM EST [place] [address] Georgette Monae PA [facility] [place] [address] 05/30/2024 10:30 AM EDT [place] [address] documented as of this encounter Procedures Procedure Name Priority Date/Time Associated Diagnosis Comments MRI CERVICAL SPINE WITH/WO CONTRAST Routine 10/26/2018 2:17 PM EDT Multiple sclerosis MRI BRAIN WWO CONTRAST (GENERIC) Routine 10/26/2018 2:17 PM EDT Multiple sclerosis documented in this encounter Results * MRI Cervical Spine [...] small left ventral cord lesion at the [id number]. Unchanged left ventral lateral and right dorsolateral [...] the number below. Erick York III, MD IM MRI ORDERABLE S * MRI Brain wwo [...] small left ventral cord lesion at the [id number]. Unchanged left ventral lateral and right dorsolateral [...] meglumine (DOTAREM) 0.5 mmol/mL (376.9 mg/mL) injection 0-100 mL 0-100 mL, Intravenous, ONCE PRN, 1 dose, Starting on Mon10/26/18 at 1222, Until Mon10/26/18 at 1343, Per Protocol, Radiology Contrast, Routine Given 10/26/2018 1:43 PM EDT 20 mLs documented in this encounter Care Teams Risk Management Internship Relationship Specialty Start Date End Date Rodriguez Roberts MD [address] [place] [address] PCP - General 11/15/13 02/09/21 documented as of this encounter
--- OUTSIDE RECORDS SUMMARY | 2024-01-15 20:04 | XMS_ITS | Encounter Summary ---
Author Organization [facility] Address [facility] [place] [address] Care Team Providers Care Shift Coordinator Name Role Phone Rodriguez Roberts MD Primary Care Provider [phone] Encounter Details Date Type Department Care Team (Late st Contact Info) Description 06/06/2019 [place] [address] Erick York III, MD [facility] [place] [address] Social History Tobacco Use Types Packs/Day Years [...] * Telephone Encounter - Babs Perry - 06/28/2019 9:14 AM EDT Last Appointment Cancel Date - 06/12 Left msg x3. No further attempts will be made to reschedule. * Telephone Encounter - Babs Perry - 06/12/2019 11:45 AM EDT Left msg x2. Letter sent. Will try again 06/19/19. * Telephone Encounter - Babs Perry - 06/06/2019 12:[address] York has requested that the Currently Scheduled Neurology visit be rescheduled into a virtual visit. SAME DAY / TIME If patient agrees to this virtual visit after answering technology assessment questions, please addnote to this encounter documenting agreement and cancel and reschedule appointment as noted below. * Change Length of Visit to match currently scheduled visit length First Preference: Telehealth Follow Up (THF) Second Preference: Telephone (TOV) If a Telephone Office Visit is scheduled, please advise patient that they should be hearing from someone in the Neurology department a day prior to their appointment to review some clinical information in preparation for their visit with the provider the following day and to remove any filter for receiving calls from blocked numbers. If patient declines Telehealth appointment: - Cancel appointment - Document patient declined in this encounter - Sign encounter and forward to Provider listed above documented in this encounter Plan of Treatment Upcoming Encounters Date Type Department Care Team (Late st Contact Info) Description 01/19/2024 1:00 PM EST Office Visit Urology at [facility] [address] [place] [phone] Desean Coronado MD [facility] [place] [address] 01/22/2024 12:30 PM EST Office Visit Neurosurgery at [facility] [address] [place] [phone] Hema Escalante MD [address] [place] [address] Liudmila Oates PA 10 [facility] [place] [address] 02/01/2024 12:00 PM EST Office [place] [phone] Georgette Monae PA [facility] [place] [address] 05/30/2024 10:30 AM EDT Appointment [place] [phone] documented as of this encounter Visit Diagnoses Not on filedocumented in this encounter Care Teams Shift Coordinator Relationship Specialty Start Date End Date Rodriguez Roberts MD [address] [place] [address] PCP - General 11/15/13 02/09/21 documented as of this encounter
--- OUTSIDE RECORDS SUMMARY | 2024-01-15 20:04 | XMS_ITS | Encounter Summary ---
Author Organization [facility] Address [facility] [place] [address] Care Team Providers Care Plant Changer Name Role Phone Rodriguez Roberts MD Primary Care Provider [phone] Reason for Visit * Reason Onset Date Comments Other 10/04/2019 records request for patric box Encounter Details Date Type Department Care Team (Late st Contact Info) Description 10/04/2019 [place] [address] Erick York III, MD [facility] [place] [address] Other (records request for patric box) Social History Tobacco Use Types Packs/Day Years [...] Telephone Encounter - Audrey Lucas RN - 10/04/2019 10:35 AM EDT records request for patric box. Request dates are 11/22/18 to present. Pt has not been seen in this time frame. No notes available. I phoned patric box and spoke with Batool Moncada and informed her of this. No further action required at this time. documented in this encounter Plan of Treatment Upcoming Encounters Date Type Department Care Team (Late st Contact Info) Description 01/19/2024 1:00 PM EST Office Visit Urology at [facility] [address] [place] [phone] Desean Coronado MD [facility] [place] [address] 01/22/2024 12:30 PM EST Office Visit Neurosurgery at [facility] [address] [place] [phone] Hema Escalante MD 10 [facility] [place] [address] Liudmila Oates PA 10 [facility] [place] [address] 02/01/2024 12:00 PM EST [place] [phone] Georgette Monae PA [facility] [place] [address] 05/30/2024 10:30 AM EDT [place] [phone] documented as of this encounter Visit Diagnoses Not on filedocumented in this encounter Care Teams Plant Changer Relationship Specialty Start Date End Date Rodriguez Roberts MD [address] [place] [address] PCP - General 11/15/13 02/09/21 documented as of this encounter
--- OUTSIDE RECORDS SUMMARY | 2024-01-15 20:04 | XMS_ITS | Encounter Summary ---
Author Organization [facility] Address [facility] [place] [address] Care Team Providers Care Binder Cutter Hand Name Role Phone Rodriguez Roberts MD Primary Care Provider [phone] Encounter Details Date Type Department Care Team (Late st Contact Info) Description 07/18/2018 11:00 AM EDT Office [place] [address] Erick oYrk III, MD [facility] [place] [address] Multiple sclerosis; Neuropathic pain; Anxiety and depression Social History Tobacco Use Types Packs/Day Years [...] Reading Time Taken Comments Blood Pressure 138/94 07/18/2018 10:48 AM EDT Pulse 69 07/18/2018 10:48 AM EDT Temperature - - Respiratory Rate - - Oxygen Saturation - - Inhaled Oxygen Concentration - - Weight 102.4 kg (225 lb 12. 8 oz) 07/18/2018 10:48 AM EDT With shoes Height 175.3 cm (5' 9) 07/18/2018 10:4 8 AM EDT Reported Body Mass Index 33.34 07/18/2018 10:48 AM EDT documented in this encounter Patient Instructions * Patient Instructions* Erick York III, MD - 07/18/2018 11:00 AM EDT You need to get blood work done soon and then in 3 months. Start taking Nortriptyline 25mg nightly to see if this helps with neuropathic pain, anxiety, and sleep difficulties. After 2 weeks if there is no improvement in muscle spasms you can increase baclofen to 10mg AM, 10mg noon/early PM, and 20mg in the evening. Continue to stay active. We talked about the Love your Brain Yoga in MS study. I will see you back in clinic in about 3 months. Erick York III, MD documented in this encounter Progress Notes * Erick York III, MD - 07/18/2018 11:00 AM EDT [facility] Follow-up Visit Dear Rodriguez Roberts MD, I saw Erick Valero Ines in clinic today in follow-up for newly diagnosed MS. He was unaccompanied at today's visit. Below is my progress note with impression and plan. Please do not hesitate to callwith any questions. Appointment time: 11:20 - 11:52 (32 minutes) DISEASE SUMMARY: Principal neurologic diagnosis: MS Onset: 2018 Diagnosis of MS: 03/2018 CSF: 13 OCBs, normal IgG index, normal cell# and protein Disease course at onset: relapsing Current disease course: relapsing Relapses: 2019 - bilateral leg, R arm and neck numbness EDSS (today): 2.0 MS Severity Score (EDSS and Disease Duration): too early myD-H Multiple Sclerosis 08/25/2014 07/18/2018 Pain Typical 8 7 Pain Now 7 4 Pain at Rest 3 5 Pain with Activity 10 10 PHQ-9 Depression - 12 (Moderate Depression) MSIS-29 - 93 Treatment History Previous disease therapies: none Current disease therapies: Tecfidera (May 2018) Imaging History Most recent MRI brain: 04/05/2018 Most recent MRI cervical spine: 04/04/2018 Most recent MRI thoracic spine: 04/04/2018 Medication-related monitoring: see below HPI: Erick Chacon is a 32 y.o. year old right-handed man with chronic back pain who was diagnosed with MS in March 2018 after presenting to [facility] on 04/04/2018 with subacute onset of [...] with titer of 1: 320. Interval History: Erick was last seen in [...] happens sometimes about 1 hour after doses. He denies any new neurological symptoms at today's appointment concerning for a MS relapse. He notes worsening neck pain that radiates [...] but is not sure that thisis helping. MS Symptom Review: Mood: Frustrated, anxious and [...] Bladder: intermittent difficulty with micturition Bowel: none Current Medications: reviewed and updated in EMR Review of Systems A ROS was obtained and reviewed with the patient. Pertinent positives and negatives were included in the HPI. Physical Examination Most Recent Vitals: 07/18/18 1048 BP: (!) 138/94 Pulse: 69 Hair, skin, nails, and joints were normal. [...] was no pronator drift. Upper extremities (R/L) Wind Turbine Erector 5/5 Finger abduction 5/5 Finger extension 5/5 [...] the feet Negative Romberg. No dysmetria with boualp-uv-gpic testing bilaterally. Finger tapping was slowed on the R fast on the L and accurate bilaterally. Standard gait was normal. Timed 25-foot walk (sec): 3.9 (Stable) Assistive device: none. QUANTITATIVE SCORES: Vision 0 Brainstem 0 Pyramidal 1 Cerebellar 0 Sensory 2 B&B 1 Cerebral 0 Ambulation 0 EDSS 2.0 REVIEW OF IMAGING STUDIES: No new imaging REVIEW OF LABORATORY STUDIES: Assessment: ICD-10-CM 1. Multiple sclerosis G35 nortriptyline (PAMELOR) 25 mg Capsule 2. Neuropathic pain M79.2 nortriptyline (PAMELOR) 25 mg Capsule 3. Anxiety and depression F41.9 nortriptyline (PAMELOR) 25 mg Capsule F32.9 Erick Chacon is a 32 y.o. man with recent diagnosis of relapsing multiple sclerosis with activity who was started on Tecfidera in May 2018. He is having side effects of flushing and occasional lower quadrant abdominal pain since starting Tecfidera 240 mg twice daily. I have recommended thathe take aspirin 81 mg about 1 hour prior to each dose. It would also be helpful for him to eat food approximately 30 minutes prior to each dose. His neurological examination has remained stable including time 25 Foot Walk. He continues to have significant pain including pain related to muscle spasms. I will have him try to increase his baclofen dose from 10 mg 3 times daily to 10 mg in a.m., 10 mg early p.m., and 20 mgin the evening. I recommended that he continue to stay active including starting. We discussed potential benefits of exercise, stretching, and relaxation techniques such as yoga. I informed him of anongoing clinical trial saying that affects of meditation, yoga and psychoeducation called Love YourBrain Yoga in MS study. He was interested in learning more about the study. Monitoring Plan: 1. Repeat MRI scan of the brain in October 2018 2. CBC with differential and LFTs today every 3 months after starting Tecfidera Treatment Plan: 1. Continue on Tecfidera 240 mg twice daily 2. Take Tecfidera approximately 30 minutes after eating. Take aspirin 81 mg approximately 1 hour prior to each dose 3. Increase baclofen to 10 mg in a.m., 10 mg early p.m., and 20 mg nightly 4. Continue tamsulosin 0.4 mg daily 5. Recommend regular exercise Follow-Up: October 2018 Thank you for allowing us to participate in Erick's healthcare. If you have questions or concerns please do not hesitate to call our clinic at [phone]. Erick York III, MD System Analyst of Neurology [facility] More than 50% of this 32 minute aiyy-xq-[id number] interaction was spent in counseling on diagnosis, prognosis, and medication and symptom management. 12:27 PM 07/19/2018 documented in this encounter Plan of Treatment Upcoming Encounters Date Type Department Care Team (Late st Contact Info) Description 01/19/2024 1:00 PM EST Office Visit Urology at [facility] [address] [place] [phone] Desean Coronado MD [facility] [place] [address] 01/22/2024 12:30 PM EST Office Visit Neurosurgery at [facility] [place] [address] Hema Escalante MD [facility] [place] [address] Liudmila Oates PA [facility] [address] 02/01/2024 12:00 PM EST Office [place] [address] Georgette Monae PA [facility] [place] [address] 05/30/2024 10:30 AM EDT Appointment [place] [address] documented as of this encounter Visit Diagnoses Diagnosis Multiple sclerosis Neuropathic pain Neuralgia, neuritis, and radiculitis, unspecified Anxiety and depression Dysthymic disorder documented in this encounter Care Teams Binder Cutter Hand Relationship Specialty Start Date End Date Rodriguez Roberts MD [address] [place] [address] PCP - General 11/15/13 02/09/21 documented as of this encounter
--- OUTSIDE RECORDS SUMMARY | 2024-01-15 20:04 | XMS_ITS | Encounter Summary ---
Author Organization [facility] [place] [address] Care Team Providers Care Associate Software Developer Name Role Phone Rodriguez Roberts MD Primary Care Provider [phone] Reason for Visit * Reason Onset Date Comments Prior Authorization 08/31/2018 TECFIDERA 24 0 MG APPROVED 09/05/18-09/06/19 Encounter Details Date Type Department Care Team (Late st Contact Info) Description 08/31/2018 [place] [address] Erick York III, MD [facility] [place] [address] Prior Authorization (TECFIDERA 240 MG APPROVED 09/05/18-09/06/19) Social History Tobacco Use Types Packs/Day Years [...] encounter Miscellaneous Notes * Telephone Encounter - Meenu Berry - 09/05/2018 3:49 PM EDT Images from the original note were not included. * Telephone Encounter - Meenu Berry - 09/05/2018 12:30 PM EDT FAXED 07/18/2018 OFFICE NOTE AND HIGHLIGHTED THE FOLLOWING INFORMATION: TAKEN FROM 07/18/2018 OFFICE NOTE: Standard gait was normal. Timed 25-foot walk (sec): 3.9 (Stable) Assistive device: none. His neurological examination has remained stable including time 25 Foot Walk. * Telephone Encounter - Meenu Berry - 09/05/2018 12:24 PM EDT Images from the original note were not included. * Telephone Encounter - Audrey Lucas RN - 09/05/2018 11:14 AM EDT I will forward to PA coordinator. * Telephone Encounter - Nova Montana - 09/05/2018 11:09 AM EDT Clinical Fur Puller Message Caller: Deja If not Pt / Relation to pt: Ruby Call back Number: [phone] Reason for call: States she spoke to Medicaid on pts PA and they are stating they need more information. Message/information for the nurse: States Medicaid informed her that they would need more information for the pts PA. States they told her that they resent something back over on the . Deja asking to keep an eye out as they are receiving a denial to it. Disposition of Call ?? Routine Message sent to the Nurse * Telephone Encounter - Meenu Berry - 08/31/2018 10:56 AM EDT Images from the original note were not included. FORM FILLED OUT FOR [facility] AND FAXED TO [phone]. documented in this encounter Plan of Treatment Upcoming Encounters Date Type Department Care Team (Late st Contact Info) Description 01/19/2024 1:00 PM EST Office Visit Urology at [facility] [address] [place] [phone] Desean Coronado MD [facility] [place] [address] 01/22/2024 12:30 PM EST Office Visit Neurosurgery at [facility] 10 [place] [phone] Hema Escalante MD 10 [facility] [place] [address] Liudmila Oates PA 10 [facility] [place] [address] 02/01/2024 12:00 PM EST Office [place] [phone] Georgette Monae PA [facility] [place] [address] 05/30/2024 10:30 AM EDT [place] [phone] documented as of this encounter Visit Diagnoses Not on filedocumented in this encounter Care Teams Associate Software Developer Relationship Specialty Start Date End Date Rodriguez Roberts MD [address] [place] [address] PCP - General 11/15/13 02/09/21 documented as of this encounter
--- OUTSIDE RECORDS SUMMARY | 2024-01-15 20:04 | XMS_ITS | Encounter Summary ---
Author Organization [facility] Address [facility] [place] [address] Care Team Providers Care Instrument Repairer Helper Name Role Phone Rodriguez Roberts MD Primary Care Provider [phone] Reason for Visit * Reason Comments Blurred Vision * Consultation (Routine) - Closed Specialty Diagnoses / Procedures Referred By Contxavier t Referred To Contact Ophthalmology Diagnoses Multiple sclerosis Erick York III, MD [facility] [place] [place] [address] Sherley Hope MD [facility] [place] [address] Referral ID Status Reason Start Date Expiration Date V isits Requested Visits Authorized [id number] Closed Consult, Test & Treat 05/16/2018 05/16/2019 1 1 Encounter Details Date Type Department Care Team (Late st Contact Info) Description 07/27/2018 8:45 AM EDT Office [place] [address] Sherley Hope MD [facility] [place] [address] Blurry vision, bilateral; Visual field defects Social History Tobacco Use Types Packs/Day Years [...] as of this encounter Progress Notes * Sherley Jordan MD - 07/27/2018 8:45 AM EDT Ines is a 32 y.o. year old right-handed man with chronic back pain who was diagnosed with MS in March 2018. He presented to the ED with progressive numbness in the legs and right arm. From a visual standpoint, he reports intermittent blurry vision and crusting of eyelids. On examination today, Erick Chacon exhibited normal visual function at 2020 in each eye, normal color vision, with no evidence of a relative afferent pupillary defect that would suggest an underlying optic nerve dysfunction. The intraocular pressures were normal in each eye. Static visual joiner were full bilaterally. Sensorimotor examination revealed full extraocular movements in each eye.Erick Chacon was orthophoric in all directions of gaze. Dilated eye examination revealed normal anterior segment structures. The optic nerves are healthy and pink with normal maculae and peripheral retina in each eye. The OCT revealed normal RNFL of both optic nerves. 1) Newly diagnosed MS - after presenting with progressive numbness in both legs and right arm - Currently on tecfidera. - Normal neuro-ophthalmic examination 2) Blepharitis, dry eyes - causing his fluctuating vision - advised to use warm compresses to the eyelids. Advised to use preservative free artificial tears,four to six times a day, as well as lubricating ointment at night. - written information on dry eye therapies given to patient RTC 1 year documented in this encounter Plan of Treatment Upcoming Encounters Date Type Department Care Team (Late st Contact Info) Description 01/19/2024 1:00 PM EST Office Visit Urology at [facility] [address] [place] [phone] Desean Coronado MD [facility] [place] [address] 01/22/2024 12:30 PM EST Office Visit Neurosurgery at [facility] [address] [place] [address] [place] [address] Liudmila Oates PA [facility] [place] [address] 02/01/2024 12:00 PM EST Office [place] [address] Georgette Monae PA [facility] [place] [place] [address] 05/30/2024 10:30 AM EDT [place] [phone] documented as of this encounter Procedures Procedure Name Priority Date/Time Associated Diagnosis Comments FUNDUS PHOTOS - OU- BOTH EYES Routine 07/27/2018 1:05 PM EDT Blurry vision, bilateral OCT OPTIC NERVE - OU - BOTH EYES Routine 07/27/2018 1:05 PM EDT Visual field defects SENSORIMOTOR EXAM Routine 07/27/2018 1:0 5 PM EDT Blurry vision, bilateral AUTOMATED VISUAL FIELD - EXTENDED - OU- BOTH EYES Routine 07/27/2018 1:05 PM EDT Blurry vision, bilateral documented in this encounter Results * FUNDUS PHOTOS - OU- BOTH EYES (07/27/2018 1:05 PM EDT) Anatomical Region Laterality Modality Other Narrative 07/27/2018 1:05 PM EDT Right Eye Disc findings include normal observations. Vessel findings include normal observations. Periphery findings include normal observations. Left Eye Disc findings include normal observations. Vessel findings include normal observations. Periphery findings include normal observations. Notes Normal discs Sherley Hope MD OPHTHALMOLOGY SE RVICES ORDERABLES * OCT OPTIC [id number]-GO-ICDP EYES (07/27/2018 1:05 PM EDT) Anatomical Region Laterality Modality Other Narrative 07/27/2018 1:05 PM EDT Right Eye Quality was good. Findings include normal observations. Temporal thickness was normal. Superior thickness was normal. Nasal thickness was normal. Inferior thickness was normal. Left Eye Quality was good. Findings include normal observations. Temporal thickness was normal. Superior thickness was normal. Nasal thickness was normal. Inferior thickness was normal. Notes Normal RNFL OU Sherley Hope MD OPHTHALMOLOGY SE RVICES ORDERABLES * SENSORIMOTOR EXAM [OH SPECIAL EYE EXAM] - OU- BOTH EYES (07/27/2018 1:05 PM EDT) Anatomical Region Laterality Modality Other Narrative 07/27/2018 1:05 PM EDT Orthotropic in all directions of gaze Sherley Hope MD OPHTHALMOLOGY SE RVICES ORDERABLES * AUTOMATED VISUAL FIELD - EXTENDED - OU- BOTH EYES (07/27/2018 1:05 PM EDT) Anatomical Region Laterality Modality Other Narrative 07/27/2018 1:05 PM EDT Right Eye Threshold was 24-2. Strategy was RM. Reliability was good. Findings include normal observations. Left Eye Threshold was 24-2. Strategy was MR. Reliability was good. Findings include normal observations. Sherley Hope MD OPHTHALMOLOGY SE RVICES ORDERABLES documented in this encounter Visit Diagnoses Diagnosis Blurry vision, bilateral Other specified visual disturbances Visual field defects Visual field defect, unspecified documented in this encounter Care Teams Instrument Repairer Helper Relationship Specialty Start Date End Date Rodriguez Roberts MD [address] [place] [address] PCP - General 11/15/13 02/09/21 documented as of this encounter
--- OUTSIDE RECORDS SUMMARY | 2024-01-15 20:04 | XMS_ITS | Encounter Summary ---
Author Organization [facility] Address [facility] [place] [address] Care Team Providers Care Pattern Weaver Name Role Phone Rodriguez Roberts MD Primary Care Provider [phone] Encounter Details Date Type Department Care Team (Late st Contact Info) Description 09/16/2019 [place] [address] Erick York III, MD [facility] [place] [address] Multiple sclerosis; High risk medication use Social History Tobacco Use Types Packs/Day Years [...] 1:00 PM EST Office Visit Urology at [facility] [address] [place] [phone] Desean Coronado MD [facility] [place] [address] 01/22/2024 12:30 PM EST Office Visit Neurosurgery at [facility] [address] [place] [address] [place] [address] Liudmila [place] [address] 02/01/2024 12:00 PM EST [place] [address] Georgette Monae PA [facility] [place] [place] [address] 05/30/2024 10:30 AM EDT [place] [phone] documented as of this encounter Visit Diagnoses Diagnosis Multiple sclerosis High risk medication use Encounter for long-term (current) use of other medications documented in this encounter Care Teams Pattern Weaver Relationship Specialty Start Date End Date Rodriguez Roberts MD [address] [place] [address] PCP - General 11/15/13 02/09/21 documented as of this encounter
--- OUTSIDE RECORDS SUMMARY | 2024-01-15 20:04 | XMS_ITS | Encounter Summary ---
Author Organization [facility] Address [facility] [place] [address] Care Team Providers Care Tram Operator Name Role Phone Rodriguez Roberts MD Primary Care Provider [phone] Reason for Visit * Reason Onset Date Comments Prior Authorization 07/19/2019 Encounter Details Date Type Department Care Team (Late st Contact Info) Description 07/19/2019 [place] [address] Erick York III, MD [facility] [place] [address] Prior Authorization Social History Tobacco Use Types [...] * Telephone Encounter - Meenu Berry - 08/02/2019 4:45 PM EDT Images from the original note were not included. * Telephone Encounter - Meenu Berry - 08/02/2019 4:44 PM EDT Images from the original note were not included. * Telephone Encounter - Meenu Berry - 08/01/2019 4:12 PM EDT Images from the original note were not included. * Telephone Encounter - Veronika Ryan - 07/19/2019 1:13 PM EDT Provider patient sees in Clinic: Dr. York Caller and relationship (if other than patient-full name): Patient Call Back Number: Ok to leave a message: Yes Medication requiring PA: [employer] When will patient be out of medication: Patient stated he is already out (Pharmacy Coverage Information can be found on the back of the patient's insurance card under pharmacy benefits. This information must be supplied in order for medication PA's to be processed. If thecaller does not have this information they must get the information and call back to the office) Pharmacy Benefits/Coverage Company: Medicaid MD Pharmacy Benefits/Coverage ID #: [id number] Pharmacy Benefits/Coverage Company Phone Number: Pharmacy used by patient: [facility] location: [place], [place] Disposition of Call: ??? Red Arrow Message Reason red arrow Message: Patient is completely out of this prescription. documented in this encounter Plan of Treatment Upcoming Encounters Date Type Department Care Team (Late st Contact Info) Description 01/19/2024 1:00 PM EST Office Visit Urology at [facility] [place] [address] [place] [phone] Desean Coronado MD [facility] [address] 01/22/2024 12:30 PM EST Office Visit Neurosurgery at [facility] [place] [phone] Hema Escalante MD [address] [place] [place] [address] Liudmila Oates [place] [address] 02/01/2024 12:00 PM EST Office [place] [phone] Georgette Monae PA [facility] [place] [address] 05/30/2024 10:30 AM EDT [place]oint[place] [phone] documented as of this encounter Visit Diagnoses Not on filedocumented in this encounter Care Teams Tram Operator Relationship Specialty Start Date End Date Rodriguez Roberts MD [address] [place] [address] PCP - General 11/15/13 02/09/21 documented as of this encounter
--- OUTSIDE RECORDS SUMMARY | 2024-01-15 20:04 | XMS_ITS | Encounter Summary ---
Author Organization [facility] Address [facility] [place] [address] Care Team Providers Care Dialer Name Role Phone Lamont Owusu MD Primary Care Provider [phone] Reason for Visit * Reason Onset Date Comments Prior Authorization 04/09/2019 Encounter Details Date Type Department Care Team (Late st Contact Info) Description 04/09/2019 [place] [address] Erick York III, MD [facility] [place] [address] Prior Authorization Social History Tobacco Use Types [...] 1:00 PM EST Office Visit Urology at [facility] [address] [place] [phone] Desean Coronado MD [facility] [place] [address] 01/22/2024 12:30 PM EST Office Visit Neurosurgery at [facility] [address] [place] [address] Hema Escalante MD [address] [place] [address] Liudmila Oates PA [address] [address] 02/01/2024 12:00 PM EST [place] [phone] Georgette Monae PA [facility] [place] [address] 05/30/2024 10:30 AM EDT [place] [phone] documented as of this encounter Goals Goal Patient Goal Type Associated Problems Recent Progress Patient-Stated? Author prevention of MS relapse Patient Facing Action Plan Dionicio Almeida, [facility] documented as of this encounter Visit Diagnoses Not on filedocumented in this encounter Care Teams Dialer Relationship Specialty Start Date End Date Lamont Owusu MD [address] [place] [address] PCP - General Family Medicine 02/10/21 documented as of this encounter
--- OUTSIDE RECORDS SUMMARY | 2024-01-15 20:04 | XMS_ITS | Encounter Summary ---
Author Organization [facility] Address [facility] [place] [address] Care Team Providers Care Lending Manager Name Role Phone Rodriguez Roberts MD Primary Care Provider [phone] Reason for Visit * Reason Onset Date Comments Medication Refill 10/25/2019 Encounter Details Date Type Department Care Team (Late st Contact Info) Description 10/25/2019 Ref[place] [address] Erick York III, MD [facility] [place] [address] Multiple sclerosis Social History Tobacco Use Types [...] 1:00 PM EST Office Visit Urology at [facility] [address] [place] [phone] Desean Coronado MD [facility] [place] [address] 01/22/2024 12:30 PM EST Office Visit Neurosurgery at [facility] [address] [facility] [place] [address] Hema Escalante MD [address] [place] [address] Liudmila Oates PA [address] [place] [address] 02/01/2024 12:00 PM EST Office [place] [phone] Georgette Monae PA [facility] [place] [address] 05/30/2024 10:30 AM EDT Appointment [place] [phone] documented as of this encounter Visit Diagnoses Diagnosis Multiple sclerosis documented in this encounter Care Teams Lending Manager Relationship Specialty Start Date End Date Rodriguez Roberts MD [address] [place] [address] PCP - General 11/15/13 02/09/21 documented as of this encounter
--- OUTSIDE RECORDS SUMMARY | 2024-01-15 20:04 | XMS_ITS | Encounter Summary ---
Author Organization [facility] Address [facility] [place] [address] Care Team Providers Care Radar Signal Processing Engineer Name Role Phone Rodriguez Roberts MD Primary Care Provider [phone] Encounter Details Date Type Department Care Team (Late st Contact Info) Description 09/16/2019 [place] [address] Erick York III, MD [facility] [place] [address] Multiple sclerosis; High risk medication use Social [...] 1:00 PM EST Office Visit Urology at [facility] [address] [place] [phone] Desean Coronado MD [facility] [place] [address] 01/22/2024 12:30 PM EST Office Visit Neurosurgery at [facility] 10 [place] [address] [place] [address] Liudmila [place] [address] 02/01/2024 12:00 PM EST [place] [address] Georgette Monae PA [facility] [place] [address] 05/30/2024 10:30 AM EDT [place]oint[place] [phone] documented as of this encounter Visit Diagnoses Diagnosis Multiple sclerosis High risk medication use Encounter for long-term (current) use of other medications documented in this encounter Care Teams Radar Signal Processing Engineer Relationship Specialty Start Date End Date Rodriguez Roberts MD [address] [place] [address] PCP - General 11/15/13 02/09/21 documented as of this encounter
--- OUTSIDE RECORDS SUMMARY | 2024-01-15 20:04 | XMS_ITS | Encounter Summary ---
Author Organization [facility] Address [facility] [place] [address] Care Team Providers Care Rn Documentation Name Role Phone Rodriguez Roberts MD Primary Care Provider [phone] Reason for Visit * Reason Onset Date Comments Medication Refill 09/13/2019 Encounter Details Date Type Department Care Team (Late st Contact Info) Description 09/13/2019 [place] [address] Erick York III, MD [facility] [place] [address] Multiple sclerosis Social History Tobacco Use Types [...] PM EST Office Visit Urology at [facility] [address] [place] [phone] Desean Coronado MD [facility] [place] [address] 01/22/2024 12:30 PM EST Office Visit Neurosurgery at [facility] [address] [facility] [place] [address] Hema Escalante MD [address] [place] [address] Liudmila Oates PA [address] [address] 02/01/2024 12:00 PM EST [place] [phone] Georgette Monae PA [facility] [place] [address] 05/30/2024 10:30 AM EDT [place] [phone] documented as of this encounter Visit Diagnoses Diagnosis Multiple sclerosis documented in this encounter Care Teams Rn Documentation Relationship Specialty Start Date End Date Rodriguez Roberts MD [address] [place] [address] PCP - General 11/15/13 02/09/21 documented as of this encounter
--- OUTSIDE RECORDS SUMMARY | 2024-01-15 20:04 | XMS_ITS | Encounter Summary ---
Author Organization [facility] Address [facility] [place] [address] Care Team Providers Care Computer Systems Manager Name Role Phone Rodriguez Roberts MD Primary Care Provider [phone] Encounter Details Date Type Department Care Team (Late st Contact Info) Description 07/18/2018 [place] [address] Ana Knott Social History Tobacco Use Types Packs/Day Years [...] 1:00 PM EST Office Visit [facility] at [place] [facility] [address] [place] [phone] [facility] [place] [address] 01/22/2024 12:30 PM EST Office Visit Neurosurgery at [facility] [address] [place] [phone] Hema Escalante MD [address] [facility] [place] [address] Liudmila [place] [address] 02/01/2024 12:00 PM EST Office [place] [phone] [facility] [place] [address] 05/30/2024 10:30 AM EDT Appointment [place] [phone] documented as of this encounter Visit Diagnoses Not on filedocumented in this encounter Care Teams Computer Systems Manager Relationship Specialty Start Date End Date Rodriguez Roberts MD [address] [facility] [address] [place] [address] PCP - General 11/15/13 02/09/21 documented as of this encounter
--- OUTSIDE RECORDS SUMMARY | 2024-01-15 20:04 | XMS_ITS | Encounter Summary ---
Author Organization [facility] [place] [address] Care Team Providers Care Poker Machine Attendant Name Role Phone Rodriguez Roberts MD Primary Care Provider Reason for Referral * Diagnostic Test (Routine) - Closed Specialty Diagnoses / Procedures Referred By Contac t Referred To Contact Radiology Diagnoses Multiple sclerosis Procedures MRI Brain wwo Contrast (Generic) Erick York III, MD [facility] [place] [address] [place] [address] Referral ID Status Reason Start Date Expiration Date V isits Requested Visits Authorized [id number] Closed Specialty Service Requested 11/05/2019 05/03/2020 1 1 Reason for Visit * Diagnostic Test (Routine) - Closed Specialty Diagnoses / Procedures Referred By Contac t Referred To Contact Radiology Diagnoses Multiple sclerosis Procedures MRI Brain wwo Contrast (Generic) Erick York III, MD [facility] [place] [place] [address] [place] [address] Referral ID Status Reason Start Date Expiration Date V isits Requested Visits Authorized [id number] Closed Specialty Service Requested 11/05/2019 05/03/2020 1 1 Encounter Details Date Type Department Care Team (Latest Contact Info) Description 11/11/2019 6:10 AM EDT - 11/11/2019 11:59 PM EDT Hospital Encounter MRI at [facility] [place] [address] Erick York III, MD [facility] [place] [address] Multiple sclerosis Discharge Disposition: Home Social History [...] 1:00 PM EST Office Visit Urology at [facility] [facility] [address] [place] [phone] [facility] [place] [address] 01/22/2024 12:30 PM EST Office Visit Neurosurgery at [facility] 10 [place] [address] Hema Escalante MD [address] [facility] [place] [place] [address] Liudmila Oates PA [address] [facility] [place] [place] [address] 02/01/2024 12:00 PM EST [place] [phone] [facility] [place] [address] 05/30/2024 10:30 AM EDT [place] [phone] documented as of this encounter Procedures Procedure Name Priority Date/Time Associated Diagnosis Comments MRI BRAIN WWO CONTRAST (GENERIC) Routine 11/11/2019 7:24 AM EDT Multiple sclerosis documented in this encounter Results * MRI Brain wwo [...] ? Electronically signed by: John Hartman MD, [facility] ([phone]), at 11/11/2019 10:55 AM Narrative 11/11/2019 10:55 [...] below. Electronically signed by: John Hartman MD, [facility]([phone]), at 11/11/2019 10:55 AM Erick York III, MD IMG MRI ORDERABLE S documented in this encounter Visit Diagnoses Diagnosis Multiple sclerosis documented in this encounter Administered Medications Inactive Administered Medications - up to 3 most recent administrations Medication Order MAR Action Action Date Dose Rate Site gadoterate meglumine (DOTAREM) 0.5 mmol/mL (376.9 mg/mL) injection 0.2 mL/kg/dose 0.2 mL/kg/dose, Intravenous, ONCE PRN, 1 dose, Starting on Mon11/11/19 at 0707, Until Mon11/11/19 at 0700, Per Protocol, Radiology Contrast, Routine Given 11/11/2019 7:00 AM EDT 20 mLs documented in this encounter Care Teams Poker Machine Attendant Relationship Specialty Start Date End Date Rodriguez Roberts MD [address] [place] [address] PCP - General 11/15/13 02/09/21 documented as of this encounter
--- OUTSIDE RECORDS SUMMARY | 2024-01-15 20:04 | XMS_ITS | Encounter Summary ---
Author Organization [facility] Address [facility] [place] [address] Care Team Providers Care Bottom Hoop Driver Name Role Phone Rodriguez Roberts MD Primary Care Provider [phone] Reason for Visit * Reason Onset Date Comments Other 04/30/2019 Encounter Details Date Type Department Care Team (Late st Contact Info) Description 04/30/2019 [place] [address] Erick York III, MD [facility] [place] [address] Other Social History Tobacco Use Types Packs/Day [...] encounter Miscellaneous Notes * Telephone Encounter - Yue Kenney RN - 04/30/2019 11:29 AM EDT Erick York III, MD to Me ?? 04/30/19 10:39 AM Carmen. Douglas Becker * Telephone Encounter - Yue Kenney RN - 04/30/2019 10:04 AM EDT Return call to patient. He states that he has the chills,body aches,cough and sweats. He has taken not his temperature as he does not have a thermometer. I took some Bianca something. It is in the bathroom but I do not want to get up to see what it is. Sx started yesterday. He states his neighbors have a cough and he has been around them. Pt has not traveled. Enc that he would do better with Tylenol 650 mg alternating with Ibuprofen 400 mg for fever and body aches. 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 Push fluids. If sx worsen contact PCP or seek care but call in advance as it this is flu he is contagious. If MS sx exacerbate due to illness call. Advised that it would be too last to get a flu shot. He states last flu shot was a couple of years ago. He is enc to get the flu vaccine annually as he is taking an immunosuppressant. Pt agrees with plan. * Telephone Encounter - Nova [place] - 04/30/2019 8:57 AM EDT [place] Message Provider patient sees in Clinic: Jaylen Caller: Erick If not Pt / Relation to pt: Call back Number: [phone] OK to leave message: Yes Reason for call: Question Message/information for the nurse: States that he has not been feeling well and wondering if he canget a low dosage of a flu shot. Disposition of Call (choose one) ?? Routine Message sent to the Nurse documented in this encounter Plan of Treatment Upcoming Encounters Date Type Department Care Team (Late st Contact Info) Description 01/19/2024 1:00 PM EST Office Visit Urology at [place] [facility] [address] [place] [phone] Desean Coronado MD [facility] [place] [place] [address] 01/22/2024 12:30 PM EST Office Visit Neurosurgery at [facility] [address] [place] [address] Hema Escalante MD [address] [address] Liudmila Oates [place] [address] 02/01/2024 12:00 PM EST Office [place] [phone] Georgette Monae PA [facility] [place] [address] 05/30/2024 10:30 AM EDT Appointment [place] [phone] documented as of this encounter Visit Diagnoses Not on filedocumented in this encounter Care Teams Bottom Hoop Driver Relationship Specialty Start Date End Date Rodriguez Roberts MD [address] [place] [address] PCP - General 11/15/13 02/09/21 documented as of this encounter
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
--- OUTSIDE RECORDS SUMMARY | 2024-01-15 20:05 | XMS_ITS | Encounter Summary ---
[place] [address] Care Team Providers Care Dog Groomer Name Role Phone Rodriguez Roberts MD Primary Care Provider [phone] Encounter Details Date Type Department Care Team (Late st Contact Info) Description 07/02/2015 Telephone [place] [phone] Brittaney Vizcarra LPN Social History Tobacco Use Types Packs/Day [...] encounter Miscellaneous Notes * Telephone Encounter - Brittaney Mak LPN - 07/02/2015 11:46 AM EDT Nurse called [facility], talked with Cherise. She confirmed Dr. Roberts had Alex Sanders progress notes from 06/05/15. * Telephone Encounter - Brittaney Mak LPN - 07/02/2015 11:41 AM EDT Patient called to confirm the notes from S. Distasio, TEACHING MANAGER visit was sent to Dr. Roberts. Advised patient nurse would fax them to the [facility] if they didn't receive them. Pt agreed with plan. documented in this encounter Plan of Treatment Upcoming Encounters Date Type Department Care Team (Late st Contact Info) Description 01/19/2024 1:00 PM EST Office Visit Urology at [facility] [address] [place] [phone] Desean Coronado MD [facility] [place] [address] 01/22/2024 12:30 PM EST Office Visit Neurosurgery at [facility] [address] [place] [address] Hema Escalante MD [address] [facility] [place] [place] [address] Liudmila Oates PA [address] [facility] [place] [place] [address] 02/01/2024 12:00 PM EST [place] [phone] Georgette Monae PA [facility] [place] [address] 05/30/2024 10:30 AM EDT [place] [phone] documented as of this encounter Visit Diagnoses Not on filedocumented in this encounter Care Teams Dog Groomer Relationship Specialty Start Date End Date Rodriguez Roberts MD [address] [place] [address] PCP - General 11/15/13 02/09/21 documented as of this encounter
--- OUTSIDE RECORDS SUMMARY | 2024-01-15 20:05 | XMS_ITS | Encounter Summary ---
Author Organization [facility] Address [facility] [place] [address] Care Team Providers Care Nuclear Plant Technical Advisor Name Role Phone Rodriguez Roberts MD Primary Care Provider [phone] Reason for Visit * Reason Comments Skin Check Encounter Details Date Type Department Care Team (Late st Contact Info) Description 10/20/2015 9:00 AM EDT Office Visit Dermatology at [address] [phone] Chase Lynn MD [address] [facility] [place] [address] Driver angioma; Angiokeratoma circumscriptum Social History Tobacco Use Types Packs/Day Years [...] as of this encounter Progress Notes * Chase Lynn MD - 10/20/2015 9:00 AM EDT PROBLEM: Rash. Erick is a 29-year-old who on the right knee an flank has had a red, vascular dermatitis for about 2 years. He states that this has been worked up, initially by Jayro Otero MD, at [facility] Dermatology and a punch biopsy was performed showing ectatic blood vessels, predominantly involving the papillary dermis. 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 Also, the patient has been having rheumatologic issues and has been seen by Maya Orozco DO, at [facility] Rheumatology. He was found to have a positive HELEN 1:320 with a homogenous rim pattern with the rest of his rheumatologic workup being negative. He has been diagnosed with fibromyalgia and therapy for that is ongoing. Another medical problem has been a herniated disk that kept him from work for a couple of years. 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 Physical examination reveals a pleasant 29-year-old who has mildly ectatic vessels, short lengths, present on the right flank above the waistline and on his right knee. A picture is noted in the [facility] clinic visit dictation from April 2015 showing very marked ectasias over the right lateral flank when the patient was cold. He points out that they are much more prominent when he is cold. Physical examination reveals no other areas of vascular changes. He has no actual dermatitis. ASSESSMENT/PLAN: Vascular ectasias, differential including angiokeratoma circumscriptum. A. Because of high level of patient concern regarding these findings, a second punch biopsy was obtained. B. We assured him, however, that neither a herniated disk or fibromyalgia would trigger these cutaneous findings. They are a separate, isolated issue. C. Discussed how these can develop at age 29/late 20s out of the blue. There is not a genetic history of such findings, the patient states, but I discussed how it can be an acquired finding and not cause for concern. D. After obtaining a 4 mm punch biopsy, suture was placed. I would like to see the patient back in 10-14 days for suture removal and biopsy results. cc: Rodriguez Roberts MD documented in this encounter Plan of Treatment Upcoming Encounters Date Type Department Care Team (Late st Contact Info) Description 01/19/2024 1:00 PM EST Office Visit Urology at [facility] [address] [place] [phone] Desean Coronado MD [facility] [place] [address] 01/22/2024 12:30 PM EST Office Visit Neurosurgery at [facility] [address] [place] [address] Hema Escalante MD [address] [facility] [place] [address] Liudmila Oates PA [address] [facility] [place] [address] 02/01/2024 12:00 PM EST Office [place] [phone] Georgette Monae PA [facility] [place] [address] 05/30/2024 10:30 AM EDT Appointment [place] [phone] documented as of this encounter Procedures Procedure Name Priority Date/Time Associated Diagnosis Comments SURGICAL PATHOLOGY REPORT Routine 10/20/2015 12:00 PM EDT documented in this encounter Results * Surgical Pathology Report (10/20/2015 12:00 PM EDT) Final Diagnosis [id number] ?Location: [facility] The signing pathologist has (i) examined the relevant preparation(s) for the specimen(s) and (ii) rendered or confirmed the diagnosis(es). . ?Surgical Pathology DIAGNOSIS Skin, right flank, punch biopsy: Ectatic blood vessels involving the papillary dermis, (see Discussion). Electronically signed by: ??Ed BURGOS, Suzie Bahena Verified: ??10/31/2015 ?Dermatopatholog ist DISCUSSION Prior biopsy, [id number], is reviewed and shows similar findings. ?The histologic differential diagnosis includes a capillary malformation or hamartoma, or angiokeratoma variant (e.g. angiokeratoma circumscriptum). Drs. Bray and Aleksandr have reviewed this case and concur with this diagnosis. CLINICAL INFORMATION Specimen Submitted: A - Skin, R flank, punch, (1) Clinical History: [id number] ectatic blood vessels, biopsy repeated due to high patient concern Clinical Diagnosis: Same Referring Identifier: ?(not provided) SPECIMEN PROCESSING A - Labeled/Fixative: Patient demographics, formalin. Quantity/Size: Single, 0.3 x 0.3 cm. Tissue Description: Punch of mendez skin with speckled brown-red pigmentation, excised to a depth of 0.4 cm. Sections/Processi ng: Submitted intact. (T1) ??ksb 10/31/2015 5:08 PM EDT [facility] SPECIMEN FROM SKIN / Unknown 10/20/2015 12:00 PM EDT 10/20/2015 12:00 PM EDT Chase Lynn MD PATHOLOGY/CYTOLOGY O [facility] [place] [address] documented in this encounter Visit Diagnoses Diagnosis Driver angioma Nevus, non-neoplastic Angiokeratoma circumscriptum Lipidoses documented in this encounter Care Teams Nuclear Plant Technical Advisor Relationship Specialty Start Date End Date Rodriguez Roberts MD [address] [place] [address] PCP - General 11/15/13 02/09/21 documented as of this encounter
--- OUTSIDE RECORDS SUMMARY | 2024-01-15 20:05 | XMS_ITS | Encounter Summary ---
[place] [address] Care Team Providers Care Vice Provost Name Role Phone Rodriguez Roberts MD Primary Care Provider [phone] Reason for Visit * Reason Onset Date Comments Prior Authorization 09/19/2016 Encounter Details Date Type Department Care Team (Late st Contact Info) Description 09/19/2016 [place] [phone] Miranda Eid Prior Authorization Social History Tobacco Use Types [...] encounter Miscellaneous Notes * Telephone Encounter - Miranda Eid - 11/01/2016 11:58 AM EDT LEFT VM ABOUT APPROVAL * Telephone Encounter - Miranda Eid - 10/27/2016 10:49 AM EDT RESUBMITTING (FAX) * Telephone Encounter - Miranda Eid - 09/19/2016 7:39 AM EDT Medication Prior Authorization [facility] Medication name/dose/directions: DULOXETINE 60MG - ONCE DAILY Rationale for request: FIBRO Health plan: [place] MEDICAID ([facility]) Authorizing customer loyalty representative name: GUS Faxed to health plan on: 09/19/16 Health plan decision: APPROVED Quantity approved: Authorization number: [id number] Start date:10/27/16 End date:10/27/17 documented in this encounter Plan of Treatment Upcoming Encounters Date Type Department Care Team (Late st Contact Info) Description 01/19/2024 1:00 PM EST Office Visit Urology at [facility] [address] [place] [phone] Desean Coronado MD [facility] [place] [address] 01/22/2024 12:30 PM EST Office Visit Neurosurgery at [facility] [address] [place] [address] Hema Escalante MD [address] [facility] [place] [address] Liudmila Oates PA [address] [facility] [place] [address] 02/01/2024 12:00 PM EST Office [place] [phone] Georgette Monae PA [facility] [place] [address] 05/30/2024 10:30 AM EDT Appointment [place] [phone] documented as of this encounter Visit Diagnoses Not on filedocumented in this encounter Care Teams Vice Provost Relationship Specialty Start Date End Date Rodriguez Roberts MD [address] [facility] [address] [place] [address] PCP - General 11/15/13 02/09/21 documented as of this encounter
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
--- OUTSIDE RECORDS SUMMARY | 2024-01-15 20:05 | XMS_ITS | Encounter Summary ---
Author Organization [facility] Address [facility] [place] [address] Care Team Providers Care Laboratory Apparatus Glass Blower Name Role Phone Rodriguez Roberts MD Primary Care Provider [phone] Encounter Details Date Type Department Care Team (Late st Contact Info) Description 11/02/2015 4:45 PM EDT Office Visit Dermatology at [address] [place] [phone] Chase Lynn MD [address] [facility] [place] [address] Angiokeratoma circumscriptum Social History Tobacco Use Types [...] Progress Notes * Chase Lynn MD - 11/02/2015 4:45 PM EDT PROBLEM: Follow up rash/follow up suture removal, biopsy result. Erick follows up and the biopsy from Dr. Ward came back showing ectatic blood vessels involving the papillary dermis, with a similar differential as seen on the previous biopsy. Dr. Varela brings up the interesting thought that this might be related to a form of Fabry's disease. Clinically, while I think this is unlikely, because these vascular lesions are new over the last roughly 2 years, I think it certainly would be worth checking an alpha galactosidase A level to rule out deficiency and to rule out Fabry's disease. Physical examination shows good healing of the biopsy site. He continues to have faint vascular markings, telangiectasias just above his right hip and on the right inner thigh. 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 ASSESSMENT/PLAN: Ectatic blood vessels. A. Today suture removed. B. May d/c wound care instructions. C. Send out lab to check alpha galactosidase A level to rule out deficiency was obtained. Will notify patient of biopsy results when these are available. He requests a response to his e-mail which he gave me. Return to clinic here will be p.r.n. If blood test results are negative/normal, then I can really reassure the patient that he does not have any dangerous pathology. I reassured him repeatedly today that he does not have cancer, and he was visibly relieved. cc: Rodriguez Roberts MD documented in this encounter Plan of Treatment Upcoming Encounters Date Type Department Care Team (Late st Contact Info) Description 01/19/2024 1:00 PM EST Office Visit Urology at [facility] [address] [place] [phone] Desean Coronado MD [facility] [place] [address] 01/22/2024 12:30 PM EST Office Visit Neurosurgery at [facility] [place] [phone] Hema Escalante MD [place] [address] Liudmila Oates PA [facility] NEUROSURGERY [place], [place] [phone] 02/01/2024 12:00 PM EST Office [place] [address] Georgette Monae PA [facility] [place] [place] [address] 05/30/2024 10:30 AM EDT [place] [phone] documented as of this encounter Visit Diagnoses Diagnosis Angiokeratoma circumscriptum Lipidoses documented in this encounter Care Teams Laboratory Apparatus Glass Blower Relationship Specialty Start Date End Date Rodriguez Roberts MD [address] [place] [address] PCP - General 11/15/13 02/09/21 documented as of this encounter
--- OUTSIDE RECORDS SUMMARY | 2024-01-15 20:05 | XMS_ITS | Encounter Summary ---
Author Organization [facility] Address [facility] [place] [address] Care Team Providers Care Venetian Blind Installer Name Role Phone Rodriguez Roberts MD Primary Care Provider [phone] Reason for Visit * Reason Comments Referral * Consultation (Routine) - Closed Specialty Diagnoses / Procedures Referred By Contxavier t Referred To Contact Rheumatology Diagnoses Vasculitis Rodriguez Roberts MD [address] [place] [address] [facility] [place] [place] Rheumatology [address] [place] [phone] Referral ID Status Reason Start Date Expiration Date V isits Requested Visits Authorized [id number] Closed Consult, Test & [facility] PCP Updated and/or Approved 06/08/2015 06/07/2016 1 1 Encounter Details Date Type Department Care Team (Late st Contact Info) Description 10/08/2015 10:00 AM EDT Office [place] [phone] Maya Orozco, [facility] [place] [address] Arthralgia, unspecified joint; Fibromyalgia Social History Tobacco Use Types Packs/Day [...] Sign Reading Time Taken Comments Blood Pressure 120/64 10/08/2015 10:05 AM EDT Pulse 65 10/08/2015 10:05 AM EDT Temperature 36.7 ??C (98 ??F) 10/08/2015 10:05 AM EDT Respiratory Rate - - Oxygen Saturation 100% 10/08/2015 10:05 AM EDT Inhaled Oxygen Concentration - - Weight 79.8 kg (176 lb) 10/08/2015 10:05 AM EDT Height 175.3 cm (5' 9) 10/08/2015 10:05 AM EDT Body Mass Index 25.99 10/08/2015 10:05 AM EDT documented in this encounter Progress Notes * Maya Orozco, DO - 10/08/2015 10:00 AM EDT Outpatient Rheumatology Consult CC: Asked by Rodriguez Roberts to evaluate this patient with joint pain and rash HPI: 29 yo male previously seen in the pain [...] him agitated but did not help the pain.No uveitis or iritis. No dactylitis. Rash was biopsied. Read as ectatic blood vessels, no vasculitis. He is going to have another biopsydone. Normal NCS in 2014. He has been weaned off narcotics and takes tramadol. He was on gabapentin which affected his balance. Has never taken lyrica or cymbalta. When he does activity, his pain is worse. PMH: ADHD, chronic fatigue, back pain, thoracic [...] not sure what type. GM had lupus. Ros: per patient history form Physical Exam: Gen: Patient is awake, alert and oriented x 3, in no distress Skin: warm and dry, no rheumatologic rashes, multiple tattoos. Lymph: no cervical or submandibular adenopathy Thyroid: no nodules or thyromegaly Mouth: moist mucous membranes, no oral ulcers Eyes: normal sclerae Heart: regular rate, no murmurs, rubs or gallops Lungs: clear to auscultation b/l Spine: very TTP over the PSIS b/l, mild TTP adjacent to the scapula Joints: Hands: full fist and claw. No synovitis Wrists: FROM Elbows: NT, FROM Shoulders: painful ROM Hips: tender over the trochanters, especially on the right Knees: no swelling or tenderness, ROM is normal Ankles: no swelling, FROM Feet: squeeze test is positive in both feet. Assessment and Plan: 29 yo male with a constellation of symptoms that is most consistent with fibromyalgia. However, he does have a lot of joint complaints as well and I want to make sure I am not missing something. He has had extensive spine imaging and there is no evidence of ankylosing spondylitis. I do not see any joint swelling on exam today but will check esr, crp, rf, ccp, soto. i am also checking a cbc as he tells me he was anemic. Also checking cmp. We discussed that if the tests are negative I would treat his fibromyalgia likely with amitriptyline first at bedtime to help with sleep and pain. Other options are trazodone for sleep, lyrica or cymbalta. I will call him with results when available and a followup plan. documented in this encounter Plan of Treatment Upcoming Encounters Date Type Department Care Team (Late st Contact Info) Description 01/19/2024 1:00 PM EST Office Visit Urology at [facility] [address] [place] [phone] Desean Coronado MD [facility] [place] [address] 01/22/2024 12:30 PM EST Office Visit Neurosurgery at [facility] [address] [place] [address] Hema Escalante MD [address] [facility] [address] Liudmila Oates PA [address] [facility] [address] 02/01/2024 12:00 PM EST [place] [phone] Georgette Monae PA [facility] [place] [address] 05/30/2024 10:30 AM EDT [place] [phone] documented as of this encounter Procedures Procedure Name Priority Date/Time Associated Diagnosis Comments ANTI-CYCLIC CITRULLINATED PEPTIDE AB Routine 10/08/2015 10:58 AM EDT Arthralgia, unspecified joint DNA ANTIBODY (DOUBLE-STRANDED) Routine 10/08/2015 10:58 AM EDT HEMOGRAM Routine 10/08/2015 10:58 AM EDT Arthralgia, unspecified joint DIFFERENTIAL, AUTOMATED Routine 10/08/2015 10:58 AM EDT Arthralgia, unspecified joint SOTO TITER Routine 10/08/2015 10:58 AM EDT SEDIMENTATION RATE Routine 10/08/2015 10 :58 AM EDT Arthralgia, unspecified joint CBC (WITH DIFF) Routine 10/08/2015 10:58 AM EDT Arthralgia, unspecified joint RHEUMATOID FACTOR, QUANT Routine 10/08/2015 10:58 AM EDT Arthralgia, unspecified joint CRP, CARDIAC RISK (HS CRP) Routine 10/08/2015 10:58 AM EDT Arthralgia, unspecified joint SOTO ANTIBODY SCREEN Routine 10/08/2015 1 0:58 AM EDT Arthralgia, unspecified joint CK Routine 10/08/2015 10:58 AM EDT COMPREHENSIVE METABOLIC PANEL Routine 10/08/2015 10:58 AM EDT Arthralgia, unspecified joint documented in this encounter Results * SOTO Titer (10/08/2015 10:58 AM EDT) SOTO Titer positive [facility] Comment: 1:320 Titer seen with Homogeneous/Diffuse pattern. ??Is suggestive of autoantibodies to nDNA, histones, or DNA-associated proteins. Blood specimen (specimen) 10/08/2015 10:58 AM EDT 10/08/2015 1:50 PM EDT Narrative Resulting Agency Comment Spec In Lab Maya Orozco DO IMMUNOLOGY ORDER ANURAG [facility] [place] [address] * DNA Antibody (Double-Stranded) (10/08/2015 10:58 AM EDT) DNA Ab (DS) Neg Neg [facility] Blood specimen (specimen) 10/08/2015 10:58 AM EDT 10/08/2015 1:50 PM EDT Narrative Resulting Agency Comment Spec In Lab Maya Orozco DO LAB SEND OUT ORD ERABLES [facility] [place] [address] * CK (10/08/2015 10:58 AM EDT) Pathologist [facility] Creatine Kinase 88 0 - 200 unit/L [facility] Blood specimen (specimen) Venous Draw / Unknown 10/08/2015 10:58 AM EDT 10/08/2015 11:09 AM EDT Narrative Resulting Agency Comment Spec In Lab Maya Orozco DO CHEMISTRY ORDERA BLES Performing Organization Address [facility]/ZIP Co de Phone Number [facility] [place] [phone] * Differential, Automated (10/08/2015 10:58 AM EDT) [facility] Neutrophil % 53.8 % [facility] Neutrophil Absolute 2.74 1.50 - 6.30 x10(3)/[facility] Lymph % 36.7 % [facility] Lymphocytes Abs 1.9 1.0 - 3.6 x10(3)/[facility] Monocyte % 7.3 % [facility] Monocyte Abs 0.4 0.2 - 1.0 x10(3)/[facility] Eos % 1.4 % [facility] Eosinophils Abs 0.1 0.0 - 0.5 x10(3)/[facility] Basophil % 0.6 % [facility] Baso Absolute 0.0 0.0 - 0.2 x10(3)/[facility] Immature Gran % 0.20 % [facility] Comment: Immature granulocytes(IG's)percentage and absolute count will include metamyelocytes, myelocytes, and promyelocytes. Blood smears from CBCs yielding IG's will be scanned manually for concordance. If this scan disagrees with the automated IG or if promyelocytes are noted, a manual differential will be performed. Immature Gran Absolute 0.01 0.00 - 0.05 x10(3)/mcL [facility] Blood specimen (specimen) 10/08/2015 10:58 AM EDT 10/08/2015 11:09 AM EDT Narrative Resulting Agency Comment Spec In Lab Maya Orozco DO HEMATOLOGY ORDER ANURAG [facility] [place] [address] * (ABNORMAL) Hemogram (10/08/2015 10:58 AM EDT) White Blood Cell 5.1 4.0 - 10.0 x10(3)/mc L [facility] Red Blood Cell 4.67 4.63 - 6.08 x10(6)/[facility] Hemoglobin 13.3(L) 13.7 - 17.5 gm/dL [facility] Hematocrit 40.5 40.0 - 51.0 % [facility] Mean Cell Volume 86.7 79.0 - 92.[address] [facility] Mean Cell Hemoglobin 28.5 25.6 - 32.[address] [facility] Mean Cell Hemoglobin Concentration 32.8 32.0 - 36.5 gm/dL [facility] Platelet 265 145 - 370 x10(3)/ L [facility] RDW Standard Deviation 44.4 35.0 - 46.[address] [facility] RDW coefficient of variation 14.0 10.9 - 14.4 % [facility] Mean Platelet Volume 10.6 9.0 - 12.[address] [facility] NRBC% auto 0.0 % [facility] NRBC Absolute 0.000 0.000 - 0.012 x10(3)/ L [facility] Blood specimen (specimen) 10/08/2015 10:58 AM EDT 10/08/2015 11:09 AM EDT Narrative Resulting Agency Comment Spec In Lab Maya Orozco DO HEMATOLOGY ORDER ANURAG Performing Organization Address [facility] Co de Phone Number [facility] [place] [address] * Cyclic Citrullinated Peptide (10/08/2015 10:58 AM EDT) Cyclic Citrulline Peptide <8.0 <=17.0 unit/mL [facility] Blood specimen (specimen) 10/08/2015 10:58 AM EDT 10/08/2015 11:09 AM EDT Narrative Resulting Agency Comment Spec In Lab Maya Orozco DO CHEMISTRY ORDERA BLES Performing Organization Address [facility] de Phone Number [facility] [place] [address] * Rheumatoid factor, quant (10/08/2015 10:58 AM EDT) Rheumatoid Factor <10 <=14 IU/mL [facility] Blood specimen (specimen) 10/08/2015 10:58 AM EDT 10/08/2015 11:09 AM EDT Narrative Resulting Agency Comment Spec In Lab Maya Orozco DO CHEMISTRY ORDERA BLES Performing Organization Address [facility] Co de Phone Number [facility] [place] [address] * Sedimentation rate (10/08/2015 10:58 AM EDT) Sedimentation Rate Automated 7 0 - 15 mm/hr [facility] Blood specimen (specimen) 10/08/2015 10:58 AM EDT 10/08/2015 11:09 AM EDT Narrative Resulting Agency Comment Spec In Lab Maya Orozco DO HEMATOLOGY ORDER ANURAG Performing Organization Address City/[facility]/ZIP Co de Phone Number [facility] [place] [address] * (ABNORMAL) SOTO (10/08/2015 10:58 AM EDT) Pathologist [facility] SOTO Titer to follow(A) Neg [facility] Blood specimen (specimen) 10/08/2015 10:58 AM EDT 10/08/2015 1:50 PM EDT Narrative Resulting Agency Comment Spec In Lab Maya Orozco DO LAB SEND OUT ORD ERABLES [facility] [place] [address] * Comprehensive metabolic panel (non-fasting) (10/08/2015 10:58 AM EDT) [facility] Glucose 89 65 - 199 mg/dL [facility] Comment:Diabetes: >=200 mg/d L plus symptoms Blood Urea Nitrogen 14 10 - 20 mg/dL [facility] Creatinine 0.83 0.80 - 1.50 mg/dL [facility] Comment: Please note that the pediatric reference intervals supplied above were not validated at [facility]. Results from pediatric patients should be interpreted in conjunction to the patient's age, height and muscle mass. Sodium 143 135 - 145 mmol/L [facility] Potassium 4.5 3.5 - 5.0 mmol/L [facility] Comment: Please note: ??Patients with WBC >100,000 may have falsely elevated Potassium levels. ??For accurate Potassium quantification in these patients send serum separator tube (gold top) for subsequent determinations. ??Contact the Clinical Chemistry Laboratory if there are any questions. Chloride 107 98 - 107 mmol/L [facility] Carbon Dioxide 25 22 - 31 mmol/L [facility] Anion Gap 11 5 - 15 mmol/L [facility] Calcium 9.0 8.5 - 10.5 mg/dL [facility] Protein, Total 7.1 6.1 - 8.0 gm/dL [facility] Albumin 4.3 3.2 - 5.2 gm/dL [facility] Aspartate Aminotransferase 17 0 - 39 unit/L [facility] Alanine Aminotransferase 15 0 - 55 unit/L [facility] Alkaline Phosphatase 72 40 - 120 unit/L [facility] Bilirubin, Total 0.2 0.2 - 1.3 mg/dL [facility] Bilirubin, Direct 0.1 0.0 - 0.3 mg/dL [facility] Est Glomerular Filtration Rate >60 >=60 [facility] Comment: This estimated GFR (eGFR) value was calculated using the MDRD equation which has been validated on patients between the ages of 18 and 70. The MDRD should not be used to assess kidney function in patients < 18 years of age or in patients with extremes of body mass, or in patients with acute kidney failure. This value should be multiplied by 1.2 for patients. For further information please copy and paste the following links into your internet browser. http://[email or web address]/DHnkdep http://Stockr/[email or web address] Blood specimen (specimen) 10/08/2015 10:58 AM EDT 10/08/2015 11:09 AM EDT Narrative Resulting Agency Comment Spec In Lab Maya Orozco DO CHEMISTRY ORDERA BLES [facility] [place] [address] * High Sensitivity CRP (10/08/2015 10:58 AM EDT) C-Reactive Protein High Sensitivity <0.2 mg/L [facility] Comment: result rechecked - SV Interpretations: 1) For accurate cardiac risk assessment, the average of 2 values >2 weeks apart should be obtained (ref 1&2). A value >10 mg/L indicates an inflammatory condition, concentrations >10 mg/L should not be used for cardiac risk assessment. ?<1.0 mg/L: low risk ?1.0 - 3.0 mg/L: moderate risk ?>3.0 mg/L: high risk groups for future cardiovascular events 2) The general reference range of apparently healthy individuals using this test is <5.0 mg/L (derived from the test package insert) References: 1. Tara MCKEON et. al. ??AHA/CDC Scientific Statement: Markers of Inflammation and Cardiovascular Disease. ??Circulation 2003; 107:499-511 2. Enma PM. ??Clinical applications of C-reactive protein for cardiovascular disease detection and prevention. ??Circulation 2003; 107:363-369 Blood specimen (specimen) 10/08/2015 10:58 AM EDT 10/08/2015 11:09 AM EDT Narrative Resulting Agency Comment Spec In Lab Maya Orozco [place] [address] documented in this encounter Visit Diagnoses Diagnosis Arthralgia, unspecified joint Fibromyalgia Mylagia and myositis, unspecified documented in this encounter Care Teams Venetian Blind Installer Relationship Specialty Start Date End Date Rodriguez Roberts MD [address] [place] [address] PCP - General 11/15/13 02/09/21 documented as of this encounter
--- OUTSIDE RECORDS SUMMARY | 2024-01-15 20:05 | XMS_ITS | Encounter Summary ---
Author Organization [facility] Address [facility] Melinda meyerиван [place] [address] Care Team Providers Care Content Management Consultant Name Role Phone Rodriguez Roberts MD Primary Care Provider [phone] Encounter Details Date Type Department Care Team (Late st Contact Info) Description 04/03/2018 9:25 PM EST Ancillary Procedure Radiology Library at [facility] [place] [address] Alexi Montenegro MD [facility] [place] [address] Social History Tobacco Use Types Packs/Day Years [...] 1:00 PM EST Office Visit Urology at [facility] [address] [place] [phone] Desean Coronado MD [facility] [place] [address] 01/22/2024 12:30 PM EST Office Visit Neurosurgery at [facility] [place] [address] Hema Escalante MD [address] [place] [address] Liudmila Oates [place] [facility] [address] 02/01/2024 12:00 PM EST [place] [address] Georgette Monae PA [facility] [place] [address] 05/30/2024 10:30 AM EDT [place] [phone] documented as of this encounter Procedures Procedure Name Priority Date/Time Associated Diagnosis Comments FILM LIBRARY STORAGE ONLY CT HEAD AND SPINE Routine 04/03/2018 9:24 PM EST documented in this encounter Results * Film Library- Storage Only CT Head And Spine (04/03/2018 9:24 PM EST) Narrative [facility] - 04/03/2018 9:24 PM EST This exam is for storage only and is auto-finalizing. Alexi Montenegro MD IMG FILM LIBRARY ORD ERABLES [place] documented in this encounter Visit Diagnoses Not on filedocumented in this encounter Care Teams Content Management Consultant Relationship Specialty Start Date End Date Rodriguez Roberts MD [address] [place] [address] PCP - General 11/15/13 02/09/21 documented as of this encounter
--- OUTSIDE RECORDS SUMMARY | 2024-01-15 20:05 | XMS_ITS | Encounter Summary ---
Author Organization [facility] Address [facility] [place] [address] Care Team Providers Care Senior Software Qa Analyst Name Role Phone Rodriguez Roberts MD Primary Care Provider [phone] Reason for Visit * Reason Comments Pain Management * Consultation (Routine) - Closed Specialty Diagnoses / Procedures Referred By Contac t Referred To Contact Pain Management Diagnoses Left lumbar radiculopathy Rodriguez Roberts MD [address] [place] [address] [facility] [address] [place] [phone] Referral ID Status Reason Start Date Expiration Date V isits Requested Visits Authorized [id number] Closed Consult, Test & Treat Connection Center 07/20/2017 07/20/2018 1 1 Encounter Details Date Type Department Care Team (Latest Contact Info) Description 02/01/2018 2:30 PM EST Office [place] [address] Damaso Franco MD [facility] DR [place] [address] Cayetano Chamberlain MD [facility] DR ANESTHESIOLOGY [place] [address] Left lumbar radiculopathy; Right lumbar radiculopathy Social History Tobacco Use [...] Sign Reading Time Taken Comments Blood Pressure 149/96 02/01/2018 2:30 PM EST Pulse 80 02/01/2018 2:30 PM EST Temperature - - Respiratory Rate - - Oxygen Saturation 99% 02/01/2018 2:30 PM EST Inhaled Oxygen Concentration - - Weight 99.8 kg (220 lb) 02/01/2018 2:21 PM EST Height 175.3 cm (5' 9) 02/01/2018 2:21 PM EST Body Mass Index 32.49 02/01/2018 2:21 PM EST documented in this encounter Progress Notes * Cayetano Chamberlain MD - 02/01/2018 2:30 PM EST [facility] Initial Consultation Note DOS: 02/01/18 : 1984 CC: Chief Complaint Patient presents with ??? Pain Management HPI: Erick Chacon He is a 32 y.o. year old male who presents to the pain clinic today at the referral of: Rodriguez Roberts MD [address] [place] [address] for consideration of low back pain radiating [...] legs. 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 Currently smoking: Yes (Explain): rarely Exercise: A little bit ROS: Constitutional: No unintentional weight loss or gain, fevers, chills, or night sweats. HENT: No recent hearing changes. No difficulty swallowing. Eyes: No recent vision changes. Respiratory: No cough or shortness of breath. Cardiovascular: No chest pain or syncope. GI: No diarrhea, nausea, vomiting, or constipation. : No dysuria, hesitancy, or urgency. No incontinence. Skin: No rashes. Neurologic: No numbness/tingling. No difficulty with balance. Psychiatric: Mood: ok. No SI/HI. Sleep: ok. Heme/Lymph/Imm: No easy bleeding or brusing. PMH/PSH: Patient Active Problem List Diagnosis Code ??? Left lumbar radiculopathy M54.16 ??? Right lumbar radiculopathy M54.16 ??? Lower back pain M54.5 ??? 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 Anxiety ??? Headache(784.0) History reviewed. No pertinent surgical history. FAMILY HISTORY: Family History Problem Relation Age of Onset ??? Arthritis Mother ??? Hypertension Mother SOCIAL HISTORY: Social History Socioeconomic History ??? Marital status: Single Spouse name: Not on file ??? Number of children: Not on file ??? Years of education: Not on file ??? Highest education level: Not on file Social Needs ??? Financial resource strain: Not on file ??? Food insecurity - worry: Not on file ??? Food insecurity - inability: Not on file ??? Transportation needs - medical: Not on file ??? Transportation needs - non-medical: Not on file Occupational History ??? Not on file Tobacco Use ??? Smoking status: Former Smoker Last attempt to quit: 04/25/2014 Years since quittin.7 ??? Smokeless tobacco: Never Used Substance and Sexual Activity ??? Alcohol use: Yes Comment: very rare ??? Drug use: No ??? Sexual activity: Not on file Comment: deferred Other Topics Concern ??? Not on file Social History Narrative ??? Not on file FUNCTIONAL STATUS: Independent in all ADLs. MEDICATIONS: Current Outpatient Medications: ??? predniSONE (DELTASONE) 20 mg Tablet, TAKE TWO TABLETS BY MOUTH EVERY DAY, Disp: , Rfl: 0 ??? arginine 500 mg Tablet, Take 1,000 mg by mouth daily., Disp: , Rfl: ??? b complex vitamins Capsule, Take 1 capsule by mouth daily., Disp: , Rfl: ??? methylphenidate (RITALIN) 20 mg Tablet, Take 20 mg by mouth 3 times daily., Disp: , Rfl: 0 ??? diaZEPam (VALIUM) 5 mg Tablet, Take 5 mg by mouth 3 times daily., Disp: , Rfl: ??? traMADol (ULTRAM) 50 mg Tablet, Take 50 mg by mouth every 6 hours as needed for Pain., Disp: , Rfl: ??? RX ADULT COMPOUNDED MEDICATION, Low Dose Naltrexone 1.5mg Capsules. Use microcrystalline cellulose as filler. Recommend 1 capsule each day for one week, then increase to 2 capsules a day for one week, then increase to 3 capsules a day., Disp: 90 each, Rfl: 3 ??? NIFEdipine (ADALAT CC) 30 mg Tablet Sustained Release, Take 30 mg by mouth daily., Disp: , Rfl: PDMP report checked and no inconsistencies are noted. ALLERGIES: No Known Allergies PHYSICAL EXAM: General: Patient is seated comfortably in NAD, well-groomed HEENT: Head atraumatic, extraocular movements intact Respiratory: Breathing comfortably on room air Cardiovascular: no swelling, distal extremities warm Abdominal: Non-distended, normal active bowel sounds Skin: No appreciable rashes or skin breakdown. Psych: Appropriate affect, alert and oriented to person, place and time. He answers questions appropriately Musculoskeletal: A comprehensive musculoskeletal exam was performed. Pertinent positives and negatives are as follows: Inspection - No evidence of gross muscular atrophy Palpation - No tenderness to palpation Range of Motion - Neck and back with range of motion within normal limits Special tests: SLR positive Slump Positive Cooney's negative Neurologic: A comprehensive neurological exam was performed. 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 No ankle clonus. Motor - 5/5 in all testable myotomes Sensation - Intact to light touch throughout extremity dermatomes Gait/Station: normal gait Balance: normal Transitions from exam room chair to table without difficulty TESTS/IMAGING: MRI Lumbar Spine- July 04, 2017 Routine noncontrast examination was performed. Comparison is made with 10/14/13. The conus medullaris has a normal appearance and location. There is again seen disc desiccation at L5-S1. There is again seen a small right paracentral disc herniation at L5-S1 with mild impingement of the right S1 nerve root. There are degenerative changes of the facets at this level with mild narrowing of the right neural foramen. No left neural foraminal stenosis is present. The remaining disc levels in the lumbar spine show normal signal. No focal disc herniation, centralspinal canal or neural foraminal stenosis is seen of the remaining disc levels. Marrow signal is within normal limits. Impression: Stable, small right paracentral disc herniation at L5-S1 with mild impingement of the right S1 nerve root. Degenerative changes at L5-S1 resulting in mild right neural foraminal narrowing ASSESSMENT: 1. Left lumbar radiculopathy 2. Right lumbar radiculopathy Erick Chacon He is a 32 y.o. year old male who presents to the pain clinic today for evaluation of low back pain radiating to bilateral lower extremities. He has a known history of lumbar disc disease and his exam is consistent with a radiculapathy secondary to nerve compression likely from aherniated disc. Given he did well with LESI in the past I would recommend repeating this procedure.He can have this performed here or at [facility]--whichever can get him in first. He continues to take Tramadol daily for pain mostly to help him get through the work day. He states that he would love to find something other than opioids to help his pain. He might be a good candidate for low dose naltrexone. I explained the risks and benefits of this medication and advised him that he should be off of the tramadol for a week prior to starting LDN. PLAN: - AC - [facility] 1.5 mg capsule, #120. Take 1 capsule by mouth at 9pm. May increase by 1 capsule at night after 7 days. If after the second week still does not have adequate relief can increase to three capsules daily. If insomnia develops, he may take at 9am instead. They will call mail LDN to him. He will let us know how he is doing with the LDN when he comes in for his LESI. Thank you for allowing us the opportunity to participate in this patient's care. I spent 60 minutes in direct [id number] time, with 45 minutes counseling him regarding treatment options and addressing specific questions. Thank you for referring him to our clinic. Cayetano Chamberlain MD Pain Fellow [facility] CC: Rodriguez Roberts MD [address] [place] [id number] * Damaso Franco MD - 02/01/2018 2:30 PM EST I have seen and examined the patient and reviewed the fellow's above history and agree with the details as written. The assessment and plan were formulated in discussion with me, and I agree with them as documented. Damaso Franco MD, [place] documented in this encounter Plan of Treatment Upcoming Encounters Date Type Department Care Team (Late st Contact Info) Description 01/19/2024 1:00 PM EST Office Visit Urology at [facility] [address] [place] [phone] Desean Coronado MD [facility] [place] [address] 01/22/2024 12:30 PM EST Office Visit Neurosurgery at [facility] [address] [place] [address] Hema Escalante MD [facility] [place] [address] Liudmila Oates PA [facility] [place] [address] 02/01/2024 12:00 PM EST Office [place] [address] Georgette Monae PA [facility] DR NEUROLOGY [place] [address] 05/30/2024 10:30 AM EDT Appointment [place] [phone] documented as of this encounter Visit Diagnoses Diagnosis Left lumbar radiculopathy Thoracic or lumbosacral neuritis or radiculitis, unspecified Right lumbar radiculopathy Thoracic or lumbosacral neuritis or radiculitis, unspecified documented in this encounter Care Teams Senior Software Qa Analyst Relationship Specialty Start Date End Date Rodriguez Roberts MD [address] [place] [address] PCP - General 11/15/13 02/09/21 documented as of this encounter
--- OUTSIDE RECORDS SUMMARY | 2024-01-15 20:05 | XMS_ITS | Encounter Summary ---
Author Organization [facility] Address [facility] [place] [address] Care Team Providers Care Human Resources Safety Manager Name Role Phone Rodriguez Roberts MD Primary Care Provider [phone] Encounter Details Date Type Department Care Team (Latest Contact Info) Description 09/22/2014 12:35 PM EDT - 09/22/2014 11:59 PM EDT Hospital [place] [phone] Left lumbar radiculopathy Social History Tobacco Use Types Packs/Day Years Used Date Smoking Tobacco: Former Cigarettes Q uit: 04/25/2014 Smokeless Tobacco: Never Sex and Gender Information Value Date Recorded Sex Assigned at Male 06/03/2020 7:58 PM EDT Gender Identity Male 02/26/2022 11:00 AM EST Sexual Orientation Straight 06/03/2020 7: 58 PM EDT documented as of this encounter Medications at Time of Discharge Medication Sig Dispensed Refills Start Date End Date traMADol (ULTRAM) 50 mg Tablet Take 50 mg by mouth every 4 hours as needed for Pain. 04/07/2018 documented as of this encounter Plan of Treatment Upcoming Encounters Date Type Department Care Team (Late st Contact Info) Description 01/19/2024 1:00 PM EST Office Visit Urology at [facility] [address] [place] [phone] Desean Coronado MD [facility] [place] [address] 01/22/2024 12:30 PM EST Office Visit Neurosurgery at [facility] [place] [address] Hema Escalante MD [address] [place] [address] Liudmila [place] [address] 02/01/2024 12:00 PM EST [place] [address] Georgette Monae PA [facility] [place] [address] 05/30/2024 10:30 AM EDT [place] [phone] documented as of this encounter Procedures Procedure Name Priority Date/Time Associated Diagnosis Comments MRI THORACIC SPINE WITHOUT CONTRAST Routine 09/22/2014 2:49 PM EDT Left lumbar radiculopathy documented in this encounter Results * MRI thoracic spine without contrast (09/22/2014 2:49 PM EDT) Anatomical Region Laterality Modality T-spine Magnetic Resonan ce 09/22/2014 2:49 PM EDT Impressions 09/22/2014 5:14 PM EDT IMPRESSION: Right posterior paracentral disc extrusion at T8-T9 causing effacement of the ventral thecal sac and mild impingement of the spinal cord but no intramedullary spinal cord signal abnormality. This report was reviewed by Jovanny Muller at 09/22/2014 5:08 PM Film and interpretation reviewed by the attending Narrative 09/22/2014 5:14 PM EDT EXAMINATION: MR Thoracic Spine WO Bhupinder CLINICAL HISTORY: several beats of clonus on exam TECHNIQUE: MRI of the thoracic spine without intravenous contrast. COMPARISON: Same date concurrently obtained MRI lumbar spine exam and prior lumbar spine exam from 10/14/2013 FINDINGS: The thoracic vertebral bodies demonstrate normal height, alignment and normal bone marrow signal intensity with preserved thoracic kyphosis. The thoracic spinal cord is normal in signal. Disc degenerative changes identified at T8-T9 with loss of intervertebral disc space height. Remaining thoracic intervertebral disc spaces are preserved. At T8-T9, there is a moderate asymmetric right paracentral posterior disc extrusion causing effacement of the ventral thecal sac and resultant localized canal narrowing with slight flattening of the ventral surface of the spinal cord. There is mild-moderate facet arthropathy at this level which results in bilateral mild neural foraminal narrowing. Procedure Note Jovanny Muller MD - 09/22/2014 EXAMINATION: MR Thoracic Spine WO Bhupinder CLINICAL HISTORY: several beats of clonus on exam TECHNIQUE: MRI of the thoracic spine without intravenous contrast. COMPARISON: Same date concurrently obtained MRI lumbar spine exam andprior lumbar spine exam from 10/14/2013 FINDINGS: The thoracic vertebral bodies demonstrate normal height, alignment andnormal bone marrow signal intensity with preserved thoracic kyphosis. Thethoracic spinal cord is normal in signal. Disc degenerative changes identified atT8-T9 with loss of intervertebral disc space height. Remaining thoracicintervertebral disc spaces are preserved. At T8-T9, there is a moderate asymmetric right paracentral posteriordisc extrusion causing effacement of the ventral thecal sac and resultantlocalized canal narrowing with slight flattening of the ventral surface of thespinal cord. There is mild-moderate facet arthropathy at this level which resultsin bilateral mild neural foraminal narrowing. IMPRESSION IMPRESSION: Right posterior paracentral disc extrusion at T8-T9 causing effacement ofthe ventral thecal sac and mild impingement of the spinal cord but nointramedullary spinal cord signal abnormality. This report was reviewed by Jovanny Muller at 09/22/2014 5:08 PM Film and interpretation reviewed by the attending Teodoro Pacheco MD IMG MRI ORDERABLES documented in this encounter Visit Diagnoses Diagnosis Left lumbar radiculopathy Thoracic or lumbosacral neuritis or radiculitis, unspecified documented in this encounter Care Teams Human Resources Safety Manager Relationship Specialty Start Date End Date Rodriguez Roberts MD [address] [place] [address] PCP - General 11/15/13 02/09/21 documented as of this encounter
--- OUTSIDE RECORDS SUMMARY | 2024-01-15 20:05 | XMS_ITS | Encounter Summary ---
[place] [address] Care Team Providers Care Beam Saw Operator Name Role Phone Rodriguez Roberts MD Primary Care Provider [phone] Reason for Referral * Consultation (Routine) - Closed Specialty Diagnoses / Procedures Referred By Contac t Referred To Contact Orthopaedics Diagnoses Low back pain radiating to right lower extremity Maya Bruce [facility] [place] [address] [facility] [address] [place] [phone] Referral ID Status Reason Start Date Expiration Date V isits Requested Visits Authorized [id number] Closed Consult, Test & Treat 11/14/2014 11/14/2015 1 1 * Physical Therapy (Routine) - Declined by Patient Specialty Diagnoses / Procedures Referred By Contac t Referred To Contact Physical Therapy Diagnoses Low back pain radiating to right lower extremity Maya Bruce [facility] [place] [address] Referral ID Status Reason Start Date Expiration Date Visits Requested Visits Authorized [id number] Declined by Patient Evaluate and Treat PCP Updated and/or Approved 11/14/2014 05/13/2015 12 12 Reason for Visit * Reason Comments Pain Management Right Leg Pain Left Leg Pain Back Pain Encounter Details Date Type Department Care Team (Late st Contact Info) Description 11/14/2014 1:45 PM EDT Office [place] [phone] Tanya Blanchard DO [facility] [place] [address] Low back pain radiating to right lower extremity; Right lumbar radiculopathy; Bilateral low back pain with right-sided sciatica Discharge Disposition: Home Social History Tobacco Use [...] Sign Reading Time Taken Comments Blood Pressure 136/84 11/14/2014 1:51 PM EDT Pulse 69 11/14/2014 1:51 PM EDT Temperature - - Respiratory Rate - - Oxygen Saturation 100% 11/14/2014 1:51 PM EDT Inhaled Oxygen Concentration - - Weight 94.6 kg (208 lb 9.6 oz) 11/14/2014 1:51 P M EDT Height 175.3 cm (5' 9) 11/14/2014 1:51 PM EDT Body Mass Index 30.8 11/14/2014 1:51 PM EDT documented in this encounter Progress Notes * Tanya Blanchard DO - 11/14/2014 3:18 PM EDT I have seen the patient and reviewed the resident's above history and I agree with the details as written. The assessment and plan were formulated in discussion with me and I agree with them as documented. Pertinent History: 29 year old male with c/o low back pain and bilateral leg pain (R>L) X 2 years. No trauma reported. Notes state that he hurt his back pushing over a maple syrup barrel. He is now on MS Contin 15 mg 2X per day and is being weaned off this medication. PT X 2 visits. LESI X 3 ([facility]) without relief. He has seen our spine center and Dr. Escalante and no surgery was recommended. Gabapentin X 900 mg /day in the past with side effects. Pertinent Exam: TTP to very light touch. Motor was normal and DTRs symmetric. Major issues addressed: Patient with very minimal findings and an MRI which does not correlate withhis symptoms or examination. Issues with opioid overuse this summer and ended up in the ER at [facility] in withdraw. I agree with the weaning of the opioids as currently underway as I do not believe that opioids are indicated. I did review the patient's examination and lumbar/thoracic spine MRIs with Dr. Flores (spine surgeon) who did not recommend any surgery based on the information which I presented to him. He has seen Dr. Escalante (spine surgeon) who did not recommend surgery, Georgette Butler APRN in our spine center who did not recommend surgery, and our clinic which does not recommend any further interventional pain management procedures (he had 3 lumbar epidural steroid injections at [facility] [id number] without relief) Plan: Functional Orthodoxy Program (FRP) vs PT (he lives in [place] and likely will not be able to come all the way down here for the FRP). I believe that continued opioids is a bad idea with this patient. He had inconsistent signs, symptoms, and imaging and has been on opioids for 2 years without much improvement. He has also overused his long acting morphine resulting in an ER visit for opioid withdraw (he initially denied this until I read him the ER note). TANYA BLANCHARD DO, MPH [employer] Helper of Anesthesiology and Medicine/[facility] [employer] [facility] Section of Pain Medicine ABPM&R - Subspecialty board certification in Pain Medicine * Maya Bruce DO - 11/14/2014 2:35 PM EDT Subjective: Patient ID: I have been requested by Dr. Roberts for my recommendation regarding the patient's back pain and bilateral leg pain. This is Erick Narvaezbrigida's initial evaluation by our clinic. HPI/ID: Erick Chacon is a 29 y.o. male seen in the Pain Center today in consultation for Rodriguez Roberts MD(PCP). He presents with a chief complaint of pain in his lower back and bilateral legs. His back pain is most bothersome to him. He also complains of pain in right>left groins. Treatments to date have included: He has had 3 LESIs in 2013 with no relief. He has had some reliefwith MS Contin and tramadol but reports his PCP is weaning him off the MS Contin. Gabapentin-no relief. Prednisone-no relief. He has seen [facility]rology (Dr. Escalante) for a surgical [facility] was not [facility]. Current Treatment Regimen: MS Contin 15 mg-1 tab in the AM and 1/2 tab in the PM Valium 5 mg TID Tramadol 50 mg Q6 hours History of present illness Location of pain Back pain and leg pain (Right>Left); Back pain is worse than the leg pain. Does the pain radiate? if so where? Yes, down right buttock and down the back of the leg to the lateral aspect of his foot. Severity of pain (right now) VAS: 3/10 Severity of pain (worst in past 24H) VAS: 10/10 Severity of pain (best in past 24H) VAS: 3/10 Severity of pain (Average, past 7days) VAS: 7/10 % pain relief with current treatment 70% How long has the pain been present? 2 years; Age of onset: 27 Is this pain related to trauma? No, bent over and developed sharp pain in his back and leg. Is this injury work-related? No Better or worse with exercise?: Variable, with walking the legs improve in pain. Does the low back pain interrupt sleep?: Yes, valium helps initially, however after it wears off hewakes. Better or worse with rest?: better Better or worse with lumbar extension?: worse Better or worse with lumbar flexion?: worse Worsened with sitting?: Yes Worsened with standing?: No Worsened with any other activity?: Yes, twisting and bending. Better or worse upon awakening?: unchanged Pain quality Low back: aching and burning, Leg(s): aching and burning Any weakness? Yes, right knee is weak. He feels that his right knee could give out on him. Any numbness Yes, right upper thigh and right foot. Any tingling to the arms or legs? Yes, right arm and right leg. Any unsteady gait? Yes, balance is off, does not use any walking aids. Any neck pain? No Any neck stiffness? No Any clumsy or weak hands? No Any swelling? Yes, bilateral leg swelling. Associated symptoms? No Family history: anyone in your family with similar complaints? Yes, Aunt x 2, Grandfather. RED FLAGS Any current fever or chills? No Any recent or ongoing infection? No Pain worse at night? No Recent significant unexplained weight loss? No Any condition or medication(s) causing immunosuppression? No History of Cancer? No Any saddle anesthesia? No Any history of significant trauma? No History of Ankylosing Spondylitis? If so, any recent trauma at all? No Any loss of bowel or bladder incontinence? No History of IV drug use? No Treatment history Do you have a history of completing formal Physical therapy? Yes, Physical therapy (September 2013 x 2times): lower back. Do you currently exercise? Yes, Does leg home physical therapy and stationary bike. Any current/prior history of taking Opioids? morphine 15 mg 1 tab in the morning and 1/2 tab at night. (prescribed by PCP, patient currently being weaned off of medication by PCP); Previously on Percocet which helped and was stopped because PCP wanted to try a longer acting agent. Any current/prior history of taking pregabalin or gabapentin? Yes, Neurontin (2 years ago) 300mg TID-caused dizziness Any current/prior history of taking NSAIDS? ibuprofen (Motrin) Any current/prior history of taking Muscle relaxants? Yes, Valium 5 mg TID- currently Any current/prior history of taking duloxetine or venlafaxine for pain? Yes, Effexor (1 year ago) -discontinued because had the urge to drink Any previous Injections for this pain? Yes, LESI by Dr. Diaz x 3 (2013) Any previous Surgery for this pain? No Any previous alternative treatments (e.g. Massage, acupuncture, TENS, chiropractic, bracing) for this pain? No Any previous GAP assessments here at [facility]? No Diagnostic test history X-ray(s)? No CT? No MRI? Yes, MRI Lumbar and Thoracic Spine Electrodiagnostics? No Ultrasound? No Other? No General health Recent Liver Function Testing? Yes Recent EKG? No Diabetic?, (recent Hem A1c?) No Occupational history Currently working? (if so, job description) No Currently on disability? No, applied for diability for back pain. Previous job? [employer] Today's review of the [place] controlled substance registry Inconsistencies? No Review of Systems Constitutional symptoms no weight loss, fever, night sweats History of Glaucoma? No History of heart arrythmia? No Other cardiovascular symptoms? No Any rash or non-healing wound(s)? No Gastrointestinal complaints No Any bladder incontinence? No Any bowel incontinence? No Any breathing problems? no cough, shortness of breath, or wheezing Supplemental Oxygen use? is not on home oxygen therapy. History of sleep apnea? (use CPAP?) No History of liver disease? No History of bleeding disorder? no recent abnormal bleeding Any endocrine problems? No history of diabetes Pacemaker present? None Suicidal ideation/plan? No Homicidal ideation/plan? No Past Medical History Diagnosis Date ??? Anxiety ??? Headache(784.0) History reviewed. No pertinent past surgical history. No Known Allergies Medications 11/14/14 1430 Medication Sig Taking? morphine (MS CONTIN) 15 mg Tablet Sustained [...] 6 hours as needed for Pain. Yes Past medical, past surgical, social and family history, medications, and allergies were documented as reviewed in the electronic medical record. myD-H Pain 11/14/2014 VR12 - Physical Summary Component 23.69 VR12 - Mental Component Summary 53.67 Audit C 1 (Low Risk) MODEMS Expectation 45 Family History of Substance Abuse (Male) 0 Personal History of Substance Abuse(Male) 0 Age 1 History of Preadolescent sexual abuse(Male) 0 Psychological Disease 2 ORT Total Scores (Male) 3 BPI Severity Score 4.5 BPI Interference Score 6.28 Opioid Risk Tool (Male) (points) Family history of substance abuse Alcohol (3) No Illegal drugs (3) No Prescription drugs (4) No Personal history of substance abuse Alcohol (3) Yes Illegal drugs (4) No Prescription drugs (5) No Age [id number] years old? (1) yes History of psychological disease ADD (2) Yes OCD (2) No Bipolar (2) No Schizophrenia (2) No Depression (1) No Total Risk Score Categories Low= 0-3, moderate= 4-7 Total 6-Moderate High= >7 Suicide/Homicide Risks Suicidal ideations No Suicidal plans No Homicidal ideations No [place] controlled substance registry was reviewed today Inconsistencies? No Previous prescribers (Also see Patient Care Team section) Medical records reviewed? Worrisome findings? Dr. Roberts Yes Yes, history of overuse of medication per emergency department record. Other significant history History of incarceration? Yes, public intoxication History of discharge from another pain provider? No History of an inconsistent Urine Drug Screen? No Overall assessment of risk moderate-high Urine drug screen ordered? No Medication contract signed? No Objective: PHYSICAL EXAMINATION LUMBAR SPINE EXAMINATION: Inspection: Scar: No; Scoliosis: No; Obvious rash or infection: Yes right flank Palpation: Tenderness to palpation at the bilateral paraspinal lumbar spine. Trigger points: None Range of motion: restricted with Flexion and Extension. Left Right Muscle spasm/pain Yes, minimal spasm to bilataral lumbar spine Yes Sacroiliac joint tenderness No No Facet joint tenderness Yes Yes Cooney's test (facet loading) Negative Positive Straight leg raise Negative Negative Sacroiliac Joint (SIJ) Dysfunction Composite of physical exam tests: Test Left-sided SIJ pain? Right-sided SIJ pain? Distraction no no Compression no no Gaenslen's (Right) no no Gaenslen's (Left) no no LOWER EXTREMITY NEUROLOGICAL EVALUATION: MOTOR: Manual muscle testing to the bilateral lower extremities included evaluation of ankle plantarflexion, dorsiflexion of the 1st toe, dorsiflexion of the ankle, knee flexion, knee Extension, hip flexion, and Hip adduction. negative Segment Muscle Action R L L3 Quadriceps Knee extension 5 /5 5/5 L4,5 Hamstring Knee Flexion 5/5 5 /5 L4 Tibialis anterior Dorsiflexion 5/5 5 /5 L5 Extensor hallucis Great toe extension 5/5 5 /5 S1 Gastrocnemius, FHL Plantar flexion 5/5 5/5 Hip ADduction 5/5 5/5 Hip ABduction 5/5 5/5 * exam limited by pain SENSORY: A) Testing of sharp and dull sensation was completed to the bilateral L1-S2 dermatomal distributions. Pertinent positives: Decreased sharp and dull sensation on right leg B) Testing of vibratory sensation was then completed. Pertinent positives: Decreased vibratory sense on right C) Light Touch (0=absent, 1-impaired, 2=normal) positive Segment location Right Left L1 upper inner thigh 1 2 L2 mid-ant thigh 1 2 L3 med femoral condyle 1 2 L4 medial mal 1 2 L5 dorsum foot, 3rd MT 1 2 S1 lat heel 1 2 S2 Popliteal fossa 1 2 PROPRIOCEPTION: The big toe was moved into flexion and extension with the patient's eyes closed. hewas asked to tell me if the big toe was up (extended) or down (flexed). Pertinent positives: NONE DEEP TENDON REFLEXES: Left Right Patellar reflex (L4) 2+ 2+ Achilles reflex (S1) 2+ 2+ GAIT: normal, toe walking is normal and heel walking is normal SCREENING EXAMINATIONS FOR CERVICAL MYELOPATHY: Ed Transporter strength: Grossly normal Hand atrophy: None Ed Transporter and release test (make a fist and release 20 times in 10 seconds): Normal Chelo's test: Negative Clonus: absent (2 beats) Babinski test: Normal Constitutional: His vital signs were normal and reviewed with the patient. He is in no acute distress. Respiratory: There is no respiratory distress Cardiovascular: Normal heart rate Skin (to the painful area): The skin was grossly normal to the area of pain Eyes: EOMI, no scleral icterus Psychological: Normal MRI Findings: Lumbar Spine: Small right posterior paracentral disc extrusion and facet arthropathy contacting the right S1 nerve root, without significant change from prior exam. There is no visible left-sided nerve root impingement. Thoracic Spine: Right posterior paracentral disc extrusion at T8-T9 causing effacement of the ventral thecal sac and mild impingement of the spinal cord but no intramedullary spinal cord signal abnormality. Assessment and Plan: ASSESSMENT 1. Low back pain radiating to right lower extremity 2. Right lumbar radiculopathy DISCUSSION Mr. Chacon is a 29 y.o. male who presents with bilateral lower back pain and right>left leg pain and has been treated the past 2 years with MS Contin, lumbar epidural steroid injections x 3, and physical therapy x 2 visits. After a thorough review of the history and physical examination, Mr. Chacon and I discussed the following treatment plan in detail: Recommended Diagnostic & Therapeutic modalities: ?? Physical Rehabilitation: I recommended physical therapy to achieve the following goals: 1) To educate him on proper stretching and strengthening of the lumbar spine area 2) To educate him on proper biomechanics to preserve the spine 3) To give personal guidance during the often non-linear healing process 4) To formulate a core strengthening plan for him 5) To develop an appropriate home exercise program. This will help him to avoid future occurences and/or exacerbations. ?? Diagnostic testing/Lab work: ?? MRI of the lumbar and thoracic spine images from September 2014 were reviewed in detailed with Dr. Flores ([facility] spine surgeon). Discussed specifically the right posterior paracentral disc extrusion at T8-T9. He felt that given the patient's physical exam, history, and imaging he does not recommend surgery at this time. On exam the patient does not show any signs of myelopathy. Current symptoms are likely from facet arthropathy contacting the right S1 nerve root. ?? Interventional procedures: ?? None at this time. He did not get any relief from prior lumbar epidural steroid injections. ?? Medication(s): ?? Agree with weaning schedule of MS Contin by PCP. Pt is very young to be on care home opioid therapy. ?? I did prescribed a compounded ointment containing with ketamine 10%, Baclofen 2%, Diclofenac 3%,gabapentin 6%, and lidocaine 5%. This is being used for his severe muscle pain and spasm. ?? Referral(s): ?? I recommended that the patient be evaluated for the functional evangelical program. Maya Bruce Pain Medicine, Fellow documented in this encounter Plan of Treatment Upcoming Encounters Date Type Department Care Team (Late st Contact Info) Description 01/19/2024 1:00 PM EST Office Visit Urology at [facility] [address] [place] [phone] Desean Coronado MD [facility] [place] [address] 01/22/2024 12:30 PM EST Office Visit Neurosurgery at [facility] [address] [place] [phone] Hema Escalante MD [address] [place] [address] Liudmila Oates [place] [address] 02/01/2024 12:00 PM EST Office [place] [phone] Georgette Monae PA [facility] [place] [address] 05/30/2024 10:30 AM EDT [place]oint[place] [address] Scheduled Referrals Name Type Priority Associated Diagnoses Order Schedule Referral to Physical Therapy Outpatient Referral Routine Low back pain radiating to right lower extremity Ordered: 11/14/2014 Referral to GAP Assessment Outpatient Referral Routine Low back pain radiating to right lower extremity Ordered: 11/14/2014 documented as of this encounter Visit Diagnoses Diagnosis Low back pain radiating to right lower extremity Right lumbar radiculopathy Thoracic or lumbosacral neuritis or radiculitis, unspecified Bilateral low back pain with right-sided sciatica documented in this encounter Care Teams Beam Saw Operator Relationship Specialty Start Date End Date Rodriguez Roberts MD [address] [place] [address] PCP - General 11/15/13 02/09/21 documented as of this encounter"
--- OUTSIDE RECORDS SUMMARY | 2024-01-15 20:05 | XMS_ITS | Encounter Summary ---
Author Organization [facility] [place] [address] Care Team Providers Care Dehydrating Press Operator Name Role Phone Rodriguez Roberts MD Primary Care Provider [phone] Encounter Details Date Type Department Care Team (Late st Contact Info) Description 12/08/2014 Orders Only [place] [address] Ana Duenas RN Social History Tobacco Use Types Packs/Day [...] PM EST Office Visit Urology at [facility] [address] [place] [phone] Desean Coronado MD [facility] [place] [address] 01/22/2024 12:30 PM EST Office Visit Neurosurgery at [facility] [place] [address] Hema Escalante MD [address] [place] [address] Liudmila Oates PA [facility] [place] [address] 02/01/2024 12:00 PM EST Office [place] [phone] Georgette Monae PA [facility] [place] [address] 05/30/2024 10:30 AM EDT Appointment [place] [phone] documented as of this encounter Visit Diagnoses Not on filedocumented in this encounter Care Teams Dehydrating Press Operator Relationship Specialty Start Date End Date Rodriguez Roberts MD [address] [place] [address] PCP - General 11/15/13 02/09/21 documented as of this encounter
--- OUTSIDE RECORDS SUMMARY | 2024-01-15 20:05 | XMS_ITS | Encounter Summary ---
Author Organization [facility] Address [facility] [place] [address] Care Team Providers Care Presiding Steward Name Role Phone Rodriguez Roberts MD Primary Care Provider [phone] Encounter Details Date Type Department Care Team (Latest Contact Info) Description 07/04/2017 - 07/04/2017 11:59 PM EDT Hospital Encounter Radiology Library at [facility] [place] [phone] Dannie Cano [facility] [place] [address] Discharge Disposition: Home Social History Tobacco Use [...] Sig Dispensed Refills Start Date End Date b complex vitamins Capsule Take 1 capsule by mouth daily. methylphenidate (RITALIN) 20 mg Tablet Take 20 mg by mouth 3 times daily. 0 10/17/2014 NIFEdipine (ADALAT CC) 30 mg Tablet Sustained Release Take 30 mg by mouth daily. 06/01/2020 DULoxetine (CYMBALTA) 60 mg Capsule, Delayed Release(E.C.) Take 1 capsule by mouth daily. 90 tablet 3 04/28/2016 02/01/2018 arginine 500 mg Tablet Take 1,000 mg by mouth daily. 04/30/2019 diaZEPam (VALIUM) 5 mg Tablet Take 5 mg by mouth 2 times daily as needed. 04/07/2018 traMADol (ULTRAM) 50 mg Tablet Take 50 mg by mouth every 4 hours as needed for Pain. 04/07/2018 documented as of this encounter Plan of Treatment Upcoming Encounters Date Type Department Care Team (Late st Contact Info) Description 01/19/2024 1:00 PM EST Office Visit Urology at [facility] [address] [place] [phone] Desean Coronado MD [facility] [place] [address] 01/22/2024 12:30 PM EST Office Visit Neurosurgery at [facility] [address] [place] [address] Hema Escalante MD [address] [facility] [place] [address] Liudmila Oates PA [address] [facility] [place] [address] 02/01/2024 12:00 PM EST Office [place] [phone] Georgette Monae PA [facility] [place] [address] 05/30/2024 10:30 AM EDT [place]oint[place] [phone] documented as of this encounter Procedures Procedure Name Priority Date/Time Associated Diagnosis Comments FILM LIBRARY STORAGE ONLY MR SPINE Routine 07/04/2017 12:00 AM EDT documented in this encounter Results * Film Library- Storage Only MR Spine (07/04/2017 12:00 AM EDT) Narrative RAD - 07/19/2017 11:29 PM EDT This exam is for storage only and is auto-finalizing. Dannie Cano V, IMG FILM LIBRARY ORD ERABLES [place], [place] documented in this encounter Visit Diagnoses Not on filedocumented in this encounter Care Teams Presiding Steward Relationship Specialty Start Date End Date Rodriguez Roberts MD [address] [place] [address] PCP - General 11/15/13 02/09/21 documented as of this encounter
--- OUTSIDE RECORDS SUMMARY | 2024-01-15 20:05 | XMS_ITS | Encounter Summary ---
[place] [address] Care Team Providers Care Home Health Lpn Name Role Phone Rodriguez Roberts MD Primary Care Provider [phone] Encounter Details Date Type Department Care Team (Late st Contact Info) Description 11/21/2014 Telephone [place] [phone] Carol Ann Ernandez RN Social History Tobacco Use Types Packs/Day [...] encounter Miscellaneous Notes * Telephone Encounter - Carol Ann Ernandez RN - 11/21/2014 6:58 AM EDT Pain Management Center Preauthorization Request Patient: Erick Valero Ines [id number] Fax received from [facility] requesting we obtain prior authorization for Ketamine, Baclofen, Diclofenac, Gabapentin, Lidocaine cream prescribed by Dannie Cano DO. RX insurance plan: [place] telephone: Patient Diagnosis: Right Lumbar Radiculopathy, Bilateral Low back pain with right side sciatica, Low back pain radiating to right lower extremity. Previous medications attempted: Percocet, Gabapentin,Effexor, Prednisone, The following action was taken after discussion with the director financial services: _X_ sent to clinical review, patient informed Carol Ann Ernandez RN documented in this encounter Plan of Treatment Upcoming Encounters Date Type Department Care Team (Late st Contact Info) Description 01/19/2024 1:00 PM EST Office Visit Urology at [facility] [address] [place] [phone] Desean Coronado MD [facility] [address] 01/22/2024 12:30 PM EST Office Visit Neurosurgery at [facility] [address] [place] [address] Hema Escalante MD [address] [facility] [place] [address] Liudmila Oates PA [address] [facility] [place] [address] 02/01/2024 12:00 PM EST Office [place] [address] Georgette Monae PA [facility] [place] [address] 05/30/2024 10:30 AM EDT Appointment [place] [phone] documented as of this encounter Visit Diagnoses Not on filedocumented in this encounter Care Teams Home Health Lpn Relationship Specialty Start Date End Date Rodriguez Roberts MD [address] [place] [address] PCP - General 11/15/13 02/09/21 documented as of this encounter
--- OUTSIDE RECORDS SUMMARY | 2024-01-15 20:05 | XMS_ITS | Encounter Summary ---
[place] [address] Care Team Providers Care Corporation Secretary Name Role Phone Rodriguez Roberts MD Primary Care Provider [phone] Encounter Details Date Type Department Care Team (Late st Contact Info) Description 11/24/2014 Telephone [place] [phone] Carol Ann Ernandez RN Social History Tobacco [...] Encounter - Carol Ann Ernandez RN - 11/24/2014 4:30 PM EDT Pain Management Center Preauthorization Request Patient: Erick Valero Ines [id number] Fax received from [facility] requesting we obtain prior authorization for Ketamine, Baclofen, Diclofenac, Gabapentin, Lidocaine cream prescribed by Dannie Cano DO. RX insurance plan: [place] telephone: Patient Diagnosis: Right Lumbar Radiculopathy, Bilateral Low back pain with right side sciatica, Low back pain radiating to right lower extremity. Previous medications attempted: Percocet, Gabapentin,Effexor, Prednisone, The following action was taken after discussion with the services manager: _X_ approved, patient informed _X_ pharmacy informed _X_ faxed approval sent to Medical Records (if received) Authorized dosage or amount: Ketamine, Baclofen, Diclofenac, Gabapentin, Lidocaine cream Authorized duration: 11/24/2014 to 05/26/2015 Authorization/Reference number: [id number] Carol Ann Ernandez RN documented in this encounter Plan of Treatment Upcoming Encounters Date Type Department Care Team (Late st Contact Info) Description 01/19/2024 1:00 PM EST Office Visit Urology at [facility] [address] [phone] Desean Coronado MD [facility] [place] [address] 01/22/2024 12:30 PM EST Office Visit Neurosurgery at [place] [address] Hema Escalante MD [address] [facility] [place] [address] Liudmila Oates PA [facility] [place] [address] 02/01/2024 12:00 PM EST Office [place] [phone] Georgette Monae PA [facility] [place] [address] 05/30/2024 10:30 AM EDT Appointment [place] [phone] documented as of this encounter Visit Diagnoses Not on filedocumented in this encounter Care Teams Corporation Secretary Relationship Specialty Start Date End Date Rodriguez Rboerts MD [address] [place] [address] PCP - General 11/15/13 02/09/21 documented as of this encounter
--- OUTSIDE RECORDS SUMMARY | 2024-01-15 20:05 | XMS_ITS | Encounter Summary ---
[place] [address] Care Team Providers Care Marketing Operations Manager Name Role Phone Rodriguez Roberts MD Primary Care Provider [phone] Reason for Visit * Reason Onset Date Comments Other 09/28/2016 change pharmacie s Encounter Details Date Type Department Care Team (Late Contact Info) Description 09/28/2016 Telephone [place] [phone] Hernandez Moffett Other (change pharmacies) Social History Tobacco Use Types Packs/Day Years [...] encounter Miscellaneous Notes * Telephone Encounter - Hernandez Moffett - 09/28/2016 1:05 PM EDT Erick calls to ask that his Rx for duloxetine from Dr. Orozco be sent to [facility] in [facility] instead of [facility] in [place]. documented in this encounter Plan of Treatment Upcoming Encounters Date Type Department Care Team (Late Contact Info) Description 01/19/2024 1:00 PM EST Office Visit Urology at [facility] [address] [place] [phone] Desean Coronado MD [facility] [place] [address] 01/22/2024 12:30 PM EST Office Visit Neurosurgery at [facility] [address] [place] [address] Hema Escalante MD [address] [facility] [place] [address] Liudmila Oates PA [address] [facility] [place] [address] 02/01/2024 12:00 PM EST Office [place] [address] Georgette Monae PA [facility] [place] [address] 05/30/2024 10:30 AM EDT Appointment [place] [phone] documented as of this encounter Visit Diagnoses Not on filedocumented in this encounter Care Teams Marketing Operations Manager Relationship Specialty Start Date End Date Rodriguez Roberts MD [address] [place] [address] PCP - General 11/15/13 02/09/21 documented as of this encounter
--- OUTSIDE RECORDS SUMMARY | 2024-01-15 20:05 | XMS_ITS | Encounter Summary ---
Author Organization [facility] Address [facility] [place] [address] Care Team Providers Care Track Man Name Role Phone Rodriguez Roberts MD Primary Care Provider [phone] Encounter Details Date Type Department Care Team (Late st Contact Info) Description 10/31/2014 External Results [place] [address] Joon Dutton MD [facility] [place] [address] Social History Tobacco Use Types Packs/Day Years [...] Office Visit Urology at [facility] [address] [place] [phone] Desean Coronado MD [facility] [place] [place] [address] 01/22/2024 12:30 PM EST Office Visit Neurosurgery at [facility] [place] [address] Hema Escalante MD [address] [place] [address] Liudmila Oates PA [address] [place] [address] 02/01/2024 12:00 PM EST Office [place] [phone] Georgette Monae PA [facility] [place] [address] 05/30/2024 10:30 AM EDT Appointment [place] [phone] documented as of this encounter Procedures Procedure Name Priority Date/Time Associated Diagnosis Comments EMG SCAN Routine 10/30/2014 documented in this encounter Results * Scan Doc: EMG (10/30/2014) Joon Dutton MD MEDIA MGR SCAN EXT O RDR/RSLT documented in this encounter Visit Diagnoses Not on filedocumented in this encounter Care Teams Track Man Relationship Specialty Start Date End Date Rodriguez Roberts MD [address] [place] [address] [address] [place] [address] PCP - General 11/15/13 02/09/21 documented as of this encounter
--- OUTSIDE RECORDS SUMMARY | 2024-01-15 20:05 | XMS_ITS | Encounter Summary ---
Author Organization [facility] Address [facility] [address] [place] [address] Care Team Providers Care Data Processing Operator Name Role Phone Rodriguez Roberts MD Primary Care Provider [phone] Reason for Visit * Reason Comments Leg Pain left foot Encounter Details Date Type Department Care Team (Late st Contact Info) Description 10/30/2014 2:15 PM EDT [place] [address] Emigido Vidal MD [facility] [place] [address] Spinal stenosis of thoracic region Discharge Disposition: Home Social History Tobacco Use [...] Sign Reading Time Taken Comments Blood Pressure 140/88 10/30/2014 1:57 PM EDT Pulse 64 10/30/2014 1:57 PM EDT Temperature - - Respiratory Rate - - Oxygen Saturation - - Inhaled Oxygen Concentration - - Weight 93.9 kg (207 lb) 10/30/2014 1:57 PM EDT Height 175.3 cm (5' 9) 10/30/2014 1:57 PM EDT Body Mass Index 30.57 10/30/2014 1:57 PM EDT documented in this encounter Progress Notes * Abelardo Newell MD - 10/30/2014 2:09 PM EDT Neurology Clinic Initial History and Physical Note Patient name:Erick Chacon Date of :1985 CC: right foot pain We have been asked to see Erick Chacon by Ortho Dept. HPI: Erick Chacon is a 28 y.o. right-handed male from [place], [place] he is unemployed with PMHxsignificant for EtOH abuse and chronic back pain. Erick Chacon is here today for evaluation of possible radiculopathy or peripheral neuropathy. - developed electric shock of the right leg from buttocks down associated with calf numbness. Worse with sitting. - diagnosed with L5-S1 foraminal stenosis. Epidural injections - x3 total this year. No improvement with those. It actually made it worse. Pain management clinic referral. - repeat MRI showed right paracentral T8 stenosis with cord impigment. Current issues: Left foot pain, aching pain, Worse in the morning upon waking up. Right leg radicular pain intermittent pain like electric shock, worse with bending over, coming from buttock. There is numbness of the right side, distal more than proximal. Worse when crossing legs.There is no bowel or bladder symptoms. MRI thoracic and lumbar spine wo contrast (09/22/2014) -Right paracentral disc extrusion at T8-T9 causing effacement of the ventral thecal sac and mild impingement of the spinal cord but no intramedullary spinal cord signal abnormality. -Small right posterior paracentral disc extrusion and facet arthropathy contacting the right S1 nerve root, without significant change from prior exam. There is no visible left-sided nerve root impingement. Past Medical & Surgical History: History reviewed. No pertinent past medical history. History reviewed. No pertinent past surgical history. Allergies: No Known Allergies Home Medications: Current Outpatient Prescriptions Medication Sig Dispense Refill ??? morphine (MS CONTIN) 15 mg Tablet Sustained Release Take 15 mg by mouth 2 times daily. 1 tabletin the morning and a 1/2 tablet at night 0 ??? methylphenidate (RITALIN) 20 mg Tablet Take 20 mg by mouth 3 times daily. 0 ??? diaZEPam (VALIUM) 5 mg Tablet Take 5 mg by mouth 3 times daily. ??? traMADol (ULTRAM) 50 mg Tablet Take 50 mg by mouth every 6 hours as needed for Pain. No current facility-administered medications for this visit. Family history: History reviewed. No pertinent family history. Surgical history: History reviewed. No pertinent past surgical history. Social history: History Social History ??? Marital Status: Single Spouse Name: N/A Number of Children: N/A ??? Years of Education: N/A Occupational History ??? Not on file. Social History Main Topics ??? Smoking status: Former Smoker Quit date: 04/25/2014 ??? Smokeless tobacco: Never Used ??? Alcohol Use: Yes Comment: very rare ??? Drug Use: No ??? Sexual Activity: Not on file Comment: deferred Other Topics Concern ??? Not on file Social History Narrative Review of systems: Constitutional: No fevers or chills Eyes: No vision changes, no diplopia, no blurry vision ENT: No rhinorrhea or pharyngitis, no meningismus CV: No chest pain or palpitations Resp: No cough, no shortness of breath GI: No nausea, vomiting, diarrhea or constipation : No dysuria, no incontinence Heme: No bleeding or bruising Endo: No polyuria or cold intolerance Neuro: See HPI Psych: No depression, normal sleep [x] Review of systems otherwise negative Physical Exam: Vitals: Temp: -- Heart Rate: [64] Resp: -- BP: (140)/(88) SpO2: -- Gen: Patient of apparent stated age, well nourished, well developed, awake, alert, NAD Neck: Supple, no meningismus, no occipital tenderness Ext: No edema. No bony deformity Neuro Exam: MS: AAOx4, clear language, no dysarthria, follows commands CN: PERRL, EOMI, visual joiner full Facial sensation intact, no facial asymmetry Hearing intact to finger rub Palate elevates symmetrically, tongue protrudes midline SCM and trap strength intact Motor: Normal bulk and tone. UE: 5/5 R, 5/5 L Arm abduction at shoulder 5/5 R, 5/5 L Elbow extension 5/5 R, 5/5 L Elbow flexion 5/5 R, 5/5 L Plant Equipment Engineer 5/5 R, 5/5 L Thumb abduction (APB) 5/5 R, 5/5 L Finger abduction 5/5 R, 5/5 L Finger extension LE: 5/5 R, 5/5 L Hip flexion 5/5 R, 5/5 L Knee extension 5/5 R, 5/5 L Knee flexion 5/5 R, 5/5 L Foot dorsiflexion 5/5 R, 5/5 L Foot plantar flexion 5/5 R, 5/5 L Foot inversion 5/5 R, 5/5 L Foot eversion 5/5 R, 5/5 L Toe flexion 5/5 R, 5/5 L Toe extension Sensation: decrease to pinprick on right dorsum of the foot and calf and left mid rueda. Reflexes: DTRs 2+ R, 2+ L Biceps 2+ R, 2+ L Brachioradialis 2+ R, 2+ L Triceps 3+ R, 3+ L Patellar 3+ R, 3+ L Achilles tendon with unsustained clonus Toes - R down, L down Coordination: Finger to nose intact, no dysmetria Rapid alternating movements & finger tapping smooth and symmetric Heel-rueda intact No tremors appreciated Gait: Stable, steady. Labs: No results found for this or any previous visit (from the past 24 hour(s)). Diagnostic Tests and Imaging: -NCS: left sural and peroneal motor response normal. Right tibial motor response normal., -EMG: Right TA, Gastroc, VL normal. Left TA and gastroc normal. Assessment / Recommendations: Erick Chacon is a 28 y.o. right-handed male with radicular symptoms of the right leg, S1 distribution of decreased sensory and pain, associated with aching pain of the left foot. Referral to usby the Orthopedics dept for EMG and NCS to rule out peripheral neuropathy vs radiculopathy, in basis of the MRI thoracic and lumbar spine findings of right T8 paracentral stenosis with cord impingement and right S1 foraminal stenosis. Exam is significant for hyperreflexia of the knees and ankles with unsustained clonus bilaterally, which could be territory account representative of his T8 canal stenosis. Strength is preserved throughout with normal tone and muscle bulk. Sensation is decreased to pincrick on the dorsum of the right foot and calf as well as the calf and min rueda on the left. NCS and EMG were unremarkable. I will communicate this findings back to referring provider by way of shared medical record. ABELARDO NEWELL MD , pager #: [phone] Clinical Neurophysiology Fellow [facility] 10/30/2014 2:09 PM In service of Dr. Vidal I have seen the patient and reviewed the fellow's above history and I agree with the details as written. The assessment and plan were formulated in discussion with me and I agree with them as documented. I assisted with the EMG. Emigdio Vidal MD documented in this encounter Miscellaneous Notes * Addendum Note - Emigdio Vidal MD - 10/30/2014 9:50 PM EDTAddended by: EMIGDIO VIDAL on: 10/30/2014 09:50 PM Modules accepted: Level of Service documented in this encounter Plan of Treatment Upcoming Encounters Date Type Department Care Team (Late st Contact Info) Description 01/19/2024 1:00 PM EST Office Visit Urology at [facility] [address] [place] [phone] Desean Coronado MD [facility] [place] [place] [address] 01/22/2024 12:30 PM EST Office Visit Neurosurgery at [facility] 10 [place] [address] Hema Escalante MD [address] [facility] [place] [address] Liudmila Oates PA [address] [facility] [address] 02/01/2024 12:00 PM EST [place] [address] Georgette Monae PA [facility] [place] [place] [address] 05/30/2024 10:30 AM EDT [place] [phone] documented as of this encounter Visit Diagnoses Diagnosis Spinal stenosis of thoracic region documented in this encounter Care Teams Data Processing Operator Relationship Specialty Start Date End Date Rodriguez Roberts MD [address] [place] [address] PCP - General 11/15/13 02/09/21 documented as of this encounter
--- OUTSIDE RECORDS SUMMARY | 2024-01-15 20:05 | XMS_ITS | Encounter Summary ---
Author Organization [facility] [place] [address] Care Team Providers Care Cardiovascular Operating Room Nurse Name Role Phone Rodriguez Roberts MD Primary Care Provider [phone] Reason for Visit * Reason Onset Date Comments Results 05/25/2015 Encounter Details Date Type Department Care Team (Late st Contact Info) Description 05/25/2015 Telephone Dermatology at [facility] [address] [place] [address] Jayro Otero MD [address] [facility] [place] [address] Results Social History Tobacco Use Types Packs/Day Years [...] encounter Miscellaneous Notes * Telephone Encounter - Jayro Otero MD - 06/01/2015 10:25 AM EDT Discussed results with patient. Will send patient handout on angiokeratomas. Patient reports new lesion on the right arm he would like evaluated. Invited patient to make appointment. * Telephone Encounter - Jayro Otero MD - 06/01/2015 9:52 AM EDT Patient called at [phone] while I was with a patient and I returned his call at [phone] to [phone]. Left message for patient to call me back. * Telephone Encounter - Jayro Otero MD - 05/25/2015 9:51 AM EDT Left message with results and recommendations at the number provided at the last visit. Pathology Report Skin, right flank, punch biopsy: - Ectatic blood vessels predominately involving the papillary dermis. This could represent a form of vascular ectasia, such an an early stage in the evolution of an angiokeratoma. In addition to the ectatic blood vessels within the papillary??dermis, there may be a subtle proliferation of blood vessels within the underlying ??dermis. This association may occur in some variants of angiokeratoma (e.g. angiokeratoma??circumscriptum), however, another variant or syndromic association cannot be excluded.??In the appropriate clinical setting, the differential diagnosis could include a capillary ??malformation or hamartoma. Clinicopathologic correlation is recommended. Multiple deeper??levels have been examined. Assessment and Recomendation Angiokeratoma Circumscriptum Benign vascular birthmark that can occur from to early adulthood and favors the trunk and lower extremities. No known syndromic associations but case report hypothesizing that potential variantto Klippel-Trenaunay syndrome. ?? Recommend evaluation for right lower extremity hypertrophy by measuring thigh and leg circumference and compare to left lower extremity ?? Consider laser therapy: PDL, REJI or CO2 documented in this encounter Plan of Treatment Upcoming Encounters Date Type Department Care Team (Late st Contact Info) Description 01/19/2024 1:00 PM EST Office Visit Urology at [facility] [address] [place] [phone] Desean Coronado MD [facility] [place] [address] 01/22/2024 12:30 PM EST Office Visit Neurosurgery at [facility] [address] [place] [address] Hema Escalante MD [address] [place] [address] Liudmila Oates PA [facility] [place] [address] 02/01/2024 12:00 PM EST Office [place] [phone] Georgette Monae PA [facility] [place] [address] 05/30/2024 10:30 AM EDT Appointment [place] [phone] documented as of this encounter Visit Diagnoses Diagnosis Angiokeratoma circumscriptum Lipidoses documented in this encounter Care Teams Cardiovascular Operating Room Nurse Relationship Specialty Start Date End Date Rodriguez Roberts MD [address] [place] [address] PCP - General 11/15/13 02/09/21 documented as of this encounter
--- OUTSIDE RECORDS SUMMARY | 2024-01-15 20:05 | XMS_ITS | Encounter Summary ---
Author Organization [facility] [place] [address] Care Team Providers Care Breaker Layer Name Role Phone Rodriguez Roberts MD Primary Care Provider [phone] Reason for Visit * Reason Comments Skin Lesion Encounter Details Date Type Department Care Team (Late st Contact Info) Description 06/04/2015 10:15 AM EDT Office Visit Dermatology at [facility] [address] [place] [address] Jayro Otero MD [address] [facility] [place] [address] Driver angioma (Primary Dx); Angiokeratoma circumscriptum Social History Tobacco Use Types [...] as of this encounter Progress Notes * Belkys Gasca LPN - 06/04/2015 11:00 AM EDT Chief Complaint: Lesion History of Present Illness Erick Chacon is a 29 y.o. male. Complains of an asymptomatic red lesion on the right arm that was first identified a few weeks ago.No symptoms. No bleeding. Never been treated or biopsied. Interval changes to Medications and Medical, Family and Social Histories (including alcohol and tobacco use) Since Last Visit 05/19/15: No significant interval history. Skin Cancer History No personal history of skin cancer No family history of skin cancer Allergies No Known Allergies Medications ??? b complex vitamins Capsule ??? Ketamine (Bulk) 100 % Powd 10 %, Baclofen (Bulk) 100 % Powd 2 %, Diclofenac Sodium (Bulk) 100 %Powd 3 %, Gabapentin (Bulk) 100 % Powd 6 %, Lidocaine HCl (Bulk) 100 % Powd 5 % ??? morphine (MS CONTIN) 15 mg Tablet Sustained Release ??? methylphenidate (RITALIN) 20 mg Tablet ??? diaZEPam (VALIUM) 5 mg Tablet ??? traMADol (ULTRAM) 50 mg Tablet Social History Tobacco: quit quit Feb 2015 ?? Alcohol: none Review of Systems Significant for no fevers, chills, night sweats, or fatigue and no other pertinent and acute changes in constitutional, other skin, HEENT, allergy/immunology systems upon specific queries. Examination Standby: Jasmin Gasca LPN Pain 0/10. Mood is appropriate but anxious. Well developed, well-nourished in no apparent distress,alert and oriented to time, person, place and situation. Examination of the right arm significant for the following: - 1mm red papule on left lateral arm Assessment and Plan Driver Angioma Counseled: driver angiomas. Benign. No treatment necessary unless symptoms develop. Treatment considered cosmetic and [id number]. Treatment options, including but not limited to electrocautery, discussed. Handout given. Angiokeratoma Circumscriptum Benign vascular birthmark that can occur from to early adulthood and favors the trunk and lower extremities. No known syndromic associations but case report hypothesizing that potential variantto Klippel-Trenaunay syndrome. ?? Consider laser therapy: PDL, REJI or CO2 Follow-up: return to clinic prn for new suspicious lesions or if changes/symptoms in existing lesions develop. I am documenting this encounter acting as the scribe for and in the presence of Dr. Otero: BELKYS GASCA LPN I performed the above scribed service and agree with the accuracy of the documentation in this encounter. Jayro Otero MD FAAD Section of Dermatology [facility] documented in this encounter Plan of Treatment Upcoming Encounters Date Type Department Care Team (Late st Contact Info) Description 01/19/2024 1:00 PM EST Office Visit Urology at [address] [address] Desean Coronado MD [facility] [place] [address] 01/22/2024 12:30 PM EST Office Visit Neurosurgery at [facility] [address] [place] [phone] Hema Escalante MD 10 [facility] [place] [address] Liudmila Oates PA 10 [facility] [place] [address] 02/01/2024 12:00 PM EST Office [place] [phone] Georgette Monae PA [facility] [place] [address] 05/30/2024 10:30 AM EDT Appointment [place] [phone] documented as of this encounter Visit Diagnoses Diagnosis Driver angioma- Primary Nevus, non-neoplastic Angiokeratoma circumscriptum Lipidoses documented in this encounter Care Teams Breaker Layer Relationship Specialty Start Date End Date Rodriguez Roberts MD [address] [place] [address] PCP - General 11/15/13 02/09/21 documented as of this encounter
--- OUTSIDE RECORDS SUMMARY | 2024-01-15 20:05 | XMS_ITS | Encounter Summary ---
Author Organization [facility] Address [facility] [place] [address] Care Team Providers Care Fringing Machine Operator Name Role Phone Rodriguez Roberts MD Primary Care Provider [phone] Reason for Referral * Routine Exam (Routine) - Specialty Diagnoses / Procedures Referred By Contac t Referred To Contact Diagnoses Intervertebral disc disorder with radiculopathy of lumbar region Procedures Epidural steroid injection - [place] Lucie Obrien MD [facility] [place] [address] Referral ID Status Reason Start Date Expiration Date Visits Requested Visits Authorized [id number] Specialty Service Requested 02/06/2018 02/06/2019 1 1 Reason for Visit * Reason Comments Back Pain Leg Pain Encounter Details Date Type Department Care Team (Latest Contact Info) Description 02/06/2018 8:00 AM EST Procedure visit [place] [address] Lucie Obrien MD [facility] [place] [address] Intervertebral disc disorder with radiculopathy of lumbar region Social History Tobacco Use Types Packs/Day Years [...] Sign Reading Time Taken Comments Blood Pressure 133/81 02/06/2018 8:02 AM EST Pulse 80 02/06/2018 8:02 AM EST Temperature - - Respiratory Rate 16 02/06/2018 8:02 AM EST Oxygen Saturation 98% 02/06/2018 8:02 AM EST Inhaled Oxygen Concentration - - Weight 99.8 kg (220 lb) 02/06/2018 7:53 AM EST Height 175.3 cm (5' 9) 02/06/2018 7:53 AM EST Body Mass Index 32.49 02/06/2018 7:53 AM EST documented in this encounter Patient Instructions * Patient Instructions* Jesus Linares RN - 02/06/2018 8:00 AM EST Pain Management [facility] Discharge Instructions: You were seen by Dr. Lucie Obrien MD and Stepan Horowitz MD who performed lumbar epidural steroid injection. It is normal that the injection site will be sore for up to 48 hours. You may also experience mild stiffness in the joint near the injection site. [x] You may resume your normal activities: tomorrow. You may shower today. DO NOT tub bathe, use whirlpools, hot tubs or pool therapy for 2 days. RemoveBand-Aid(s) later today/tomorrow. Do not drive until tomorrow. Use caution walking/climbing stairs as you may be unsteady on your feet. You may use your usual medications, including pain medications, as directed, unless otherwise instructed. You may use an ice pack as needed for the first 24 hours, on for 20 minutes then off for 20 minutes. Do not apply heat today. Attempt to empty your bladder 4-6 hours after your procedure. You received the following medications: Lidocaine, Omnipaque (contrast dye) and Dexamethasone Sodium Phosphate 10 mg. During regular business hours, please phone the Pain Management Center at with any questions or if the following or other troubling symptoms develop: 1) Prolonged dizziness or weakness (more than 1 day). 2) Localized swelling, redness or drainage at the injection site(s). 3) Temperature of 101 degrees that lasts for more than 4 hours. After 5 PM or on weekends, call and ask for Pain Clinic provider on-call. If you are unable to reach the Pain Management Center and have a complication, please call your Primary Care Provider or proceed to your local emergency department. Jesus Linares RN Special instructions documented in this encounter Progress Notes * Stepan Horowitz Princess - 02/06/2018 8:00 AM EST PREPROCEDURE HISTORY AND PHYSICAL Date of Visit: February 06, 2018 Chief Complaint: Low back pain HPI: Subjective Erick Chacon is a 32 y.o. male who presents today for lumbar epidural steroid injection. The history is obtained from the patient, and I have reviewed medical records provided by the referring physician and located in the electronic medical record to fill in gaps in the patient's recollection of events, treatments and outcomes. LOCATION: right lumbar area or left lumbar area. PAIN LEVEL AT REST 7/10 PAST MEDICAL HISTORY: Past Medical History: Diagnosis Date ??? Anxiety ??? Headache(784.0) PAST SURGICAL HISTORY: History reviewed. No pertinent surgical history. ALLERGIES: Patient has no known allergies. MEDICATIONS: Medications 02/01/18 1923 Medication Sig Taking? predniSONE (DELTASONE) 20 mg Tablet TAKE TWO TABLETS BY MOUTH EVERY DAY RX ADULT COMPOUNDED MEDICATION Low Dose Naltrexone 1.5mg Capsules. Use microcrystalline cellulose as filler. Recommend 1 capsule each day for one week, then increase to 2 capsules a day for one week,then increase to 3 capsules a day. NIFEdipine (ADALAT CC) 30 mg Tablet Sustained Release Take 30 mg by mouth daily. arginine 500 mg Tablet Take 1,000 mg by mouth daily. b complex vitamins Capsule Take 1 capsule by mouth daily. methylphenidate (RITALIN) 20 mg Tablet Take 20 mg by mouth 3 times daily. diaZEPam (VALIUM) 5 mg Tablet Take 5 mg by mouth 3 times daily. traMADol (ULTRAM) 50 mg Tablet Take 50 mg by mouth every 6 hours as needed for Pain. FAMILY HISTORY: Family History Problem Relation Age [...] Social History Narrative ??? Not on file ROS: Patient denies recent fevers, chills, infections, wounds, hospitalizations, ED visits or antibiotics use PHYSICAL EXAM: There were no vitals taken for this visit. CV: RRR Pulm: CTA B Skin: No concerning infection, erythema or warmth near the procedure site RADIOLOGIC DATA: MRI reviewed ASSESSMENT: 1. Intervertebral disc disorder with radiculopathy of lumbar region Assessment Erick Chacon is a 32 y.o. male who presents today for the above procedure. Risks and benefitswere discussed with the patient and all questions answered. There are no contraindications to proceed. PLAN: Proceed with procedure as planned. Stepan Horowitz MD Pain Fellow [facility] * Jesus Linares RN - 02/06/2018 8:00 AM EST Pre-Procedure Screening Questions: 1. Status: No 2. 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 Yes 3. Patient taking antibiotics at present? No 4. NPO per Pain Management Center protocol? No 5. Patient diabetic: No 6. Patient routinely taking anticoagulants ? No Patient Vital Signs documented in Doc Flowsheets associated with this encounter. Patient Discharge Instructions were reviewed with patient and copy provided to patient. documented in this encounter Procedure Notes * Lucie Obrien MD - 02/06/2018 8:00 AM ESTAssociated Order(s): EPIDURAL STEROID INJECTION Procedure(s): EPIDURAL STEROID INJECTION Pre-Procedure Diagnose(s): Intervertebral disc disorder with radiculopathy of lumbar region Lumbar Epidural Steroid Injection with Fluoroscopic Guidance L5-S1 Chief Complaint: Low back pain, lower extremity pain, left greater than right. Erick Chacon has been referred to the Pain Management Center for Lumbar Epidural Steroid Injection. Erick Chacon was greeted by the nurse who verified patients name and . Patient was then taken to the fluoroscopy suite. Mr. Chacon was interviewed and the medical record reviewed. There were no medical, pharmacologic, radiographic or other structural contraindications to attempting fluoroscopically guided epidural steroid injection. Risks and expected side effects as well as potential benefit of the procedure were reviewed with Mr. Chacon, and his voiced concerns were addressed. The printed consent form was signed and witnessed. The risks and benefits were reviewed with the patient including but not limited to post dural puncture, headache, infection, nerve injury, allergic reaction, possible increase insymptoms over the ensuing 24 to 48 hours, paralysis. The patient appeared to understand, questions were answered and the patient agreed to proceed. TECHNIQUE: After informed written consent was obtained, the patient was placed in the prone position. The Lumbar spine was prepped with chloraprep and draped. Sterile technique was used, vital signs (BP, pulse oximtery) were monitored, time out was done, cap, glove, mask were worn. Using fluoroscopic guidance, the L5-S1 interspace was identified. The skin and subcutaneous structures were anesthetized with lidocaine 1% to a total volume of 5 ml. An 18 g tuohy needle was advance to the epidural space using the loss of resistance technique with air and fluoroscopic guidance. There was no blood or CSF. Lateral view was obtained. Under AP view Omnipaque 240 1 cc's was injected while visualized with live fluoroscopy. There was no evidence of intravascular uptake, the epidural space was delineated. The patient received Decadron 10 mg to a total volume of 1 ml after negative aspiration for blood or CSF. Radiographs were archived in the patient???s chart. OUTCOME:Outcome: The patient tolerated the procedure well and had stable vital signs. Follow up plans and appointments were discussed with Eirck Chacon. The patient was observed in the pain clinic and then discharged after having met discharge criteria to the care of a milk truck driver. The patient received written instructions as documented in nursing records. Preprocedure pain level: 7/10 Postprocedure pain level: 5/10 COMMENTS: Can return for repeat injection after 2 weeks if pain recurs and there has at least been transient improvement. Follow-up with No primary care provider on file.Dr. Franco or Pain Clinic Fellow. Stepan Horowitz MD Pain Fellow I was the attending physician supervising the fellow or resident in the above care and I was present with the resident for the entire procedure. Lucie Obrien MD Rubber Extrusion Machine Operator of Anesthesiology [facility] [address] [phone] / [facility] CC: Rodriguez Roberts MD @[email or web address]@ documented in this encounter Plan of Treatment Upcoming Encounters Date Type Department Care Team (Late st Contact Info) Description 01/19/2024 1:00 PM EST Office Visit Urology at [facility] [address] [place] [phone] Desean Coronado MD [facility] [place] [address] 01/22/2024 12:30 PM EST Office Visit Neurosurgery at [facility] [address] [place] [phone] Hema Escalante MD 10 [facility] [place] [address] Liudmila Oates PA [address] [place] [address] 02/01/2024 12:00 PM EST Office [place] [phone] Georgette Monae PA [facility] [place] [address] 05/30/2024 10:30 AM EDT Appointment [place] [phone] documented as of this encounter Procedures Procedure Name Priority Date/Time Associated Diagnosis Comments EPIDURAL STEROID INJECTION Routine 02/06/2018 8:00 AM EST Intervertebral disc disorder with radiculopathy of lumbar region documented in this encounter Results * EPIDURAL STEROID INJECTION (02/06/2018 8:00 AM EST) Narrative Lucie Obrien MD - 02/06/2018 8:00 AM EST Lucie Obrien MD ? 02/06/2018 ??5:38 PM Lumbar Epidural Steroid Injection with Fluoroscopic Guidance L5-S1 Chief Complaint: Low back pain, lower extremity pain, ??left greater than right. Erick Chacon has been referred to the Pain Management Center for Lumbar Epidural Steroid Injection. Erick Chacon was greeted by the nurse who verified patients name and . ??Patient was then taken to the fluoroscopy suite. Mr. Chacon was interviewed and the medical record reviewed. ?? There were no medical, pharmacologic, radiographic or other structural contraindications to attempting fluoroscopically guided epidural steroid injection. ??Risks and expected side effects as well as potential benefit of the procedure were reviewed with Mr. Chacon, and his voiced concerns were addressed. ??The printed consent form was signed and witnessed. The risks and benefits were reviewed with the patient including but not limited to post dural puncture, headache, infection, nerve injury, allergic reaction, possible increase in symptoms over the ensuing 24 to 48 hours, paralysis. ??The patient appeared to understand, ??questions were answered and the patient agreed to proceed. TECHNIQUE: After informed written consent was obtained, the patient was placed in the prone position. The Lumbar spine was prepped with chloraprep and draped. ??Sterile technique was used, vital signs (BP, pulse oximtery) were monitored, time out was done, cap, glove, mask were worn. Using fluoroscopic guidance, the ??L5-S1 ??interspace was identified. ??The skin and subcutaneous structures were anesthetized with lidocaine 1% to a total volume of ??5 ??ml. ?? An 18 g tuohy needle was advance to the epidural space using the loss of resistance technique with air and fluoroscopic guidance. ?? There was no blood or CSF. Lateral view was obtained. ??Under AP view Omnipaque 240 ??1 cc's was injected while visualized with live fluoroscopy. ?? There was no evidence of intravascular uptake, the epidural space was delineated. ??The patient received Decadron 10 ?? mg ?to a total volume of 1 ml after negative aspiration for blood or CSF. ??Radiographs were archived in the patient? s chart. OUTCOME:Outcome: The patient tolerated the procedure well and had stable vital signs. ??Follow up plans and appointments were discussed with Erick Chacon. The patient was observed in the pain clinic and then discharged after having met discharge criteria ??to the care of a milk truck driver. ??The patient received written instructions as documented in nursing records. ?? Preprocedure pain level: 7/10 Postprocedure pain level: 5/10 COMMENTS: Can return for repeat injection after 2 weeks if pain recurs and there has at least been transient improvement. Follow-up with No primary care provider on file.Dr. Franco or Pain Clinic Fellow. Stepan Horowitz MD Pain Fellow I was the attending physician supervising the fellow or resident in the above care and I was present with the resident for the entire procedure. Lucie Obrien MD Rubber Extrusion Machine Operator of Anesthesiology [facility] [address] [phone] / [facility] CC: Rodriguez Roberts MD @[email or web address]@ Lucie Obrien MD NEUROLOGY ORDERABLES documented in this encounter Visit Diagnoses Diagnosis Intervertebral disc disorder with radiculopathy of lumbar region Thoracic or lumbosacral neuritis or radiculitis, unspecified documented in this encounter Administered Medications Inactive Administered Medications - up to 3 most recent administrations Medication Order MAR Action Action Date Dose Rate Site dexamethasone(PF) (DECADRON) 10 mg/mL injection 10 mg 10 mg, Epidural, ONCE, 1 dose, On Mon02/06/18 at 0830, Routine Given 02/06/2018 8:30 AM EST 10 mg iohexol (OMNIPAQUE) 240 mg/mL solution 1 mL 1 mL, Other, ONCE, 1 dose, On Mon02/06/18 at 0830, 49 ml wasted, Routine Given 02/06/2018 8:30 AM EST 1 mL documented in this encounter Care Teams Fringing Machine Operator Relationship Specialty Start Date End Date Rodriguez Roberts MD [address] [place] [address] PCP - General 11/15/13 02/09/21 documented as of this encounter
--- OUTSIDE RECORDS SUMMARY | 2024-01-15 20:05 | XMS_ITS | Encounter Summary ---
Author Organization [facility] [place] [address] Care Team Providers Care Coal Screener Name Role Phone Rodriguez Roberts MD Primary Care Provider [phone] Encounter Details Date Type Department Care Team (Late st Contact Info) Description 10/16/2015 [place] [address] Maya Orozco, [facility] [place] [address] Social History Tobacco Use Types Packs/Day Years [...] encounter Miscellaneous Notes * Telephone Encounter - Maya Orozco DO - 10/16/2015 4:03 PM EDT I called Erick and let him know that his lasb are unremarkable and that his diagnosis is fibromyalgia. i started him on amitriptyline 10 mg qhs. He can increase to 20 mg qhs if needed. Advised that he take it 30-60 minutes before bed and expect to be in bed for 8 hours. i will see him back on 11/30 at 1:30. documented in this encounter Plan of Treatment Upcoming Encounters Date Type Department Care Team (Late st Contact Info) Description 01/19/2024 1:00 PM EST Office Visit Urology at [facility] [address] [place] [phone] Desean Coronado MD [facility] [place] [address] 01/22/2024 12:30 PM EST Office Visit Neurosurgery at [facility] [address] [place] [address] Hema Escalante MD 10 [facility] [address] Liudmila Oates PA [address] [facility] [place] [address] 02/01/2024 12:00 PM EST [place] [phone] Georgette Monae PA [facility] [place] [address] 05/30/2024 10:30 AM EDT [place] [address] documented as of this encounter Visit Diagnoses Diagnosis Fibromyalgia Mylagia and myositis, unspecified documented in this encounter Care Teams Coal Screener Relationship Specialty Start Date End Date Rodriguez Roberts MD [address] [place] [address] PCP - General 11/15/13 02/09/21 documented as of this encounter
--- OUTSIDE RECORDS SUMMARY | 2024-01-15 20:05 | XMS_ITS | Encounter Summary ---
Author Organization [facility] Address [facility] [place] [address] Care Team Providers Care Decontamination Worker Name Role Phone Rodriguez Roberts MD Primary Care Provider [phone] Reason for Referral * Consultation (Routine) - Closed Specialty Diagnoses / Procedures Referred By Contac t Referred To Contact Neurology Diagnoses Multiple sclerosis Stephania Bhardwaj MD [facility] [place] [address] [facility] Neurology [address] [place] [phone] Referral ID Status Reason Start Date Expiration Date V isits Requested Visits Authorized [id number] Closed Consult, Test & Treat 04/07/2018 04/07/2019 1 1 Reason for Visit * Reason Comments Hospital Transfer Back Pain r/o cauda equina * Auth/Cert Specialty Diagnoses / Procedures Referred By Contac t Referred To Contact Diagnoses Lower extremity numbness Abnormal MRI, spinal cord Procedures EMERGENCY IPI Referral ID Status Reason Start Date Expiration Date Visits Re quested Visits Authorized [id number] 1 1 Encounter Details Date Type Department Care Team (Latest Contact Info) Description 04/04/2018 12:30 AM EST - 04/07/2018 4:18 PM EST Hospital Encounter Neuro Critical Care Unit - [address] [place] [phone] Guero Paagn MD [facility] EMER[place] [address] Chris Gonzalez MD [facility] [place] [address] José Fernando MD [facility] [place] [address] Babs Ribeiro MD [facility] [place] [address] Amos Deleon MD [facility] [place] [address] Erick York III, MD [facility] [place] [address] Lower extremity numbness; Multiple sclerosis; Gait instability Discharge Disposition: Home with VNA Social History Tobacco Use Types Packs/Day Years [...] Sign Reading Time Taken Comments Blood Pressure 133/76 04/07/2018 12:08 PM EST Pulse 61 04/05/2018 4:50 PM EST Temperature 36.6 ??C (97.9 ??F) 04/07/2018 12:[address] Respiratory Rate 22 04/07/2018 12:08 PM EST Oxygen Saturation 99% 04/07/2018 12:08 PM EST Inhaled Oxygen Concentration - - Weight 97.7 kg (215 lb 4.8 oz) 04/04/2018 9:57 P M EST Height 175.3 cm (5' 9) 04/04/2018 9:57 PM EST Body Mass Index 31.79 04/04/2018 9:57 PM EST documented in this encounter Discharge Summaries * Georgette Monae PA - 04/07/2018 1:15 PM EST Discharge Summary Patient Name: Erick Chacon Patient Age: 32 y.o. Language: Croatian Race: White Ethnicity: Not nor Admit Date: 04/04/2018 Discharge Date: 04/07/18 Attending Physician: No att. providers found Discharge Physician: No att. providers found Follow-up Recommendations for Providers: -Patient to continue steroid taper (prednisone 60 for 3 days and decreasing by 10mg every 3 days) ?? Take three 20mg tabs for 3 days, followed by 2.5 tabs x3d, 2 tabs x3d, 1.5 tab x 3d, 1 tab x3d, and finish with 0.5 tab x 3d -Patient will follow-up with [facility], where immunotherapy will be considered -Valium was decreased to 5mg qHS PRN, please continue to wean pt off of this medication while up titrating the baclofen as tolerated - Recommended scheduled voiding for decreased sensation of full bladder. He is able to fully empty bladder during admission. Inpatient Provider Contact Information: For questions regarding this document or issues related to this hospitalization on the Neurology Service, please contact the author(s) of this discharge summary through the [facility] Set Builder . Discharge Diagnoses (Hospital Problems) and Secondary Diagnoses (Chronic Problems): Primary Diagnosis: Multiple Sclerosis Secondary Diagnosis: Spinal Disc Herniation Active Hospital Problems Diagnosis ??? Multiple sclerosis ??? Abnormal brain MRI ??? Sensory impairment ??? Lhermitte's sign positive ??? Gait instability ??? Thoracic disc herniation ??? Abnormal MRI, spinal cord ??? Right lumbar radiculopathy ??? Lower back pain ??? Left lumbar radiculopathy Resolved Hospital Problems No resolved problems to display. Active Non-Hospital Problems Diagnosis ??? Angiokeratoma circumscriptum Past Medical History: Diagnosis Date ??? Anxiety ??? Headache(784.0) History of Presentation: Erick Chacon is a 32 y.o. right handed man with a PMH of fibromyalgia, ADHD, low back pain, Reynaud's (involving feet, fingers, nose), HTN, leg abscess at age 23 who presented in transfer from [facility] for further evaluation numbness of the right neck and lower extremities. ?? His symptoms first started 6 days ago with numbness in the right neck that progressed to also involve the right scapular area across to the left side. This continued without improvement, and then 4 days ago he noted bilateral lower extremity intermittent paresthesias and numbness. These symptoms were ongoing until 2 days ago, at which point he went to work and began to experience worsening numbness to the point he could barely feel his feet. He had difficulty with balancing due to not being able to sense his foot position. When he walks he feels like he is stepping on a small, soft sponge ball. ?? On review of symptoms he has not had weakness, vision changes (no diplopia, no blurring of vision),dysarthria, difficulty speaking, dizziness. No bowel or bladder incontinence. Able to urinate. Had straining/constipation with bowel movement in the ED but was able to pass stool. ?? While in the ED he was seen by Neurosurgery as there were earlier concerns for cauda equina syndrome per OSH; exam not consistent with this entity and no surgical indication. He underwent an MRI of the total spine which demonstrated enhancing lesions in the cervical cord and T2 signal alteration inthe cervical and thoracic cords. ?? Regarding previous history, he is followed in Pain Clinic for chronic low back pain that started 4 years ago, adiating down the legs treated with spinal injections that have provided good relief. He believes his back pain started after an injury at work involving bending forward. He was found to have L5-S1 disc herniation with mild impingement of the R S1 nerve root. ?? He had seen neurology in 2014 for nerve conduction study. Per note from 10/2014 he initially developed electric shock sensation of the right leg from buttocks down a/w calf numbness, worse with sitting (July 2013). In September 2013 he was diagnosed w/ L5-S1 foraminal stenosis treated with epidural injections with worsening of the pain instead of improvement. A repeat MRI in September 2014 showed R paracentral T8 stenosis w/ cord impingement. At the neurology visit in 10/2014 he had left foot pain, worse in the morning with awakening, right leg radicular pain w/ electric shock radiating from origin in buttock, sensations worse with bending over. Exam was notable for numbness on the right, distal > proximal, exacerbated by crossing legs. No bowel or bladder symptoms at the time. Nerve conduction studies were normal, EMG of the R TA, gastrocnemius, VL, L TA and gastroc were normal. ?? One year ago he had an ED visit for thoracic back pain and chest pain with numbness in his right arm. He states that cardiac workup was unremarkable, and he was told symtpoms were likely related to heartburn. At follow up visit he was still having intermittent chest pains and back spasms with numbness down the right flank. ?? He is also followed by rheumatology for fibromyalgia. He was initially referred for thoracic/lumbarpain, hip pain, muscle spasms. He had a rash which was biopsied and pathology showed ectatic blood vessels, no vasculitis. ?? Family history: lupus (maternal grandmother and great grandmother), cardiovascular disease/VA (grandfather, uncles), ?? Rarely smokes cigarettes, very rare ETOH use. No illicit use. 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 Physical Exam at Admission Vitals: Temp: -- Heart Rate: -- Resp: -- BP: (111-138)/(65-92) SpO2: [95 %-100 %] Heart Rate from SPO2: [58 bpm-80 bpm] Gen: Patient of apparent stated age, well nourished, well developed, in NAD Neck: Supple, no meningismus, no occipital tenderness, no L'hermitte sign CV: S1S2, RRR, no murmur Resp: CTA BL Abd: Normoactive bowel sounds, soft, nontender, nondistended Ext: No edema, no bony deformity Neuro Exam: MS: A&Ox4, clear language without expressive or receptive aphasia, able to repeat and name objects, no dysarthria, follows commands CN: PERRL, EOMI, visual joiner full Facial sensation intact, no facial asymmetry Hearing intact to finger rub BL Palate elevates symmetrically, tongue protrudes midline SCM and trap strength intact Motor: Normal bulk and tone. ?UE: ?5/5 R, 5/5 L ?Arm abduction at shoulder ?5/5 R, 5/5 L ?Elbow extension ?5/5 R, 5/5 L ?Elbow flexion ?5/5 R, 5/5 L ?Wrist??extension ?5/5 R, 5/5 L ?Wrist flexion ?5/5 R, 5/5 L Wrist pronation ?5/5 R, 5/5 L Wrist supination ?5/5 R, 5/5 L ?Finger??extension ?5/5 R, 5/5 L ?Finger flexion ?5/5 R, 5/5 L ?Knock Up Assembler ?5/5 R, 5/5 L Thumb flexion ?LE: ? 5/5 R, 5/5 L ?Hipflexion ?5/5 R, 5/5 L ?Knee extension ?5/5 R, 5/5 L ?Knee flexion ?5/5 R, 5/5 L ?Foot inversion ?5/5 R, 5/5 L ?Foot eversion ?5/5 R, 5/5 L ?Toe flexion ?5/5 R, 5/5 L ?Great toe extension?5/5 R, 5/5 L ?Great toe flexion?5/5 R, 5/5 L ?Foot dorsiflexion ?5/5 R, 5/5 L ?Foot plantar flexion Sensation: Decreased sensation to sharp object below T10 anteriorly, L4 posteriorly. Decreased sensation in RUE compared to LUE. Intact distal temperature and vibration Reflexes: DTRs 2+ R, 2+ L Biceps 2+ R, 2+ L Brachioradialis 2+ R, 2+ L Triceps 2+ R, 2+ L Patellar 2+ R, 2+ L Achilles tendon Toes - R down, L down Coordination: Finger to nose intact with no dysmetria Rapid alternating movements & finger tapping smooth and symmetric Heel-rueda intact BL Foot tapping smooth and symmetrical No tremor at rest or with motion Gait: slow, stable and steady Hospital Course: Erick Chacon is a 32 y.o. right handed man with a PMH of fibromyalgia, ADHD, low back pain, Reynaud's (involving feet, fingers, nose), HTN, leg abscess at age 23 who was transferred from [facility] to [facility] neurology services for further evaluation numbness from theright neck down through the extremities. 32 yo right handed male with PMH of HTN, fibromyalgia, muscle spasms, ADHD,??chronic low back pain w/ L5-S1 radiculopathy and electrical shocks down spine and legs with bending over (gets epidural injections at pain clinic), who transferred from [facility] to [facility] neurology services for further evaluation of numbness of the right neck x 6 days followed by numbness of lower extremities x 4 days + difficulty with balancing due to not being able to sense his foot position. He has experienced likely MS hug related chest pain and episodes of decreased sensation and paresthesias in the past. He denies any family hx of MS, endorses fam hx of Lupus (grandmother and great grandmother) and thyroid issues (cousin). Exam was notable for decreased pinprick sensation below the waist, as well as, decreased pinprick sensation in the RUE;. decreased vibratory sense of right foot/leg, decreased sensation of soft touchon R lateral anterior neck, RUE and RLE. Sensation of temperature intact throughout. Great toe proprioception normal. Normal motor strength throughout and reflexes were brisker on RLE with toes downgoing BL. Finger tapping smooth though asymmetric and slightly slower with R hand. Romberg with mild sway to the right with eyes closed. Gait slow but steady, imbalance with heel to toe walking. MRI of the total spine was obtained and demonstrated multiple cord lesions in the cervical and thoracic cord, 3 of which in the cervical cord were enhancing. MRI brain was subsequently performed and demonstrated findings suggestive of demyelination with enhancing and nonenhancing lesions with T2 hyperintense lesion in the right centrum semiovale, several other small subcortical and periventricular areas of T2 signal alteration, and T2 signal abnormality at the superior aspect of the right brachium pontis demonstrating mild enhancement. HELEN positive. Negative for HIV, Hep B, Hep C, Lyme antibody. B12 and TSH wnl. XR guided LP performed on 04/06/18 with preliminary CSF studies as normal. Other CSF studies are pending. Bladder scans were normal but he did report reduced sensation of a full bladder with 700 cc in his bladder prior to emptying. He is able to completely empty his bladder so we have advised timed voiding, using the bathroom every 2-3 hours to ensure he is not retaining urine. Pt meets clinical criteria for MS with two documented clinical episodes and lesions in both brain and spinal cord, and he received three IV methylprednisolone 1g doses. New leukocytosis was likely related to the steroid load. He will be discharged on a PO prednisone taper starting Monday with plan f or OP neurology f/u in the MS clinic. Pending results from multiple labs ordered for consideration of possible future immunotherapy. For his muscle spasms, he was started on Baclofen 10mg TID. He reports taking Valium at home at 2.5mg qAM and 2.5-5mg qhs for muscle spasms which he notes makes hime feel fatigued. He previously cut back from 5mg BID dosing and we have discontinued the AM dose and made the nightly 5mg dose PRN. TheValium should continue to be weaned. We the following home meds: Tramadol 50 mg q4h PRN pain, nifedipine 30 mg qd, and Ritalin 20 mg TID. The patient was evaluated by Rehabilitation Services and deemed appropriate for discharge home [facility]. Operations/Major Procedures: LP Consultations 1. PT/OT Diagnostic Tests & Neuroimaging: Date Study Results 04/04 MRI Total Spine COMPARISON: CT of the cervical thoracic and [...] RIGHT posterior column (series 26 image 16). [place] segments of T2 prolongation with enhancement are [...] moderate central canal narrowing and moderate RIGHT T8- T9 subarticular recess narrowing. There is T2 prolongation within the disc and postcontrast enhancement consistent with an acute on chronic protrusion. Question caudad migration of a disc fragment inferior and along the posterior aspect of T9 (series 9 image 10). ?? The remaining thoracic vertebral body heights and disc spaces are maintained with normal alignment.Normal regional osseous marrow signal. ?? Focal T2 signal alteration without enhancement within the RIGHT lateral aspect of the thoracic cordat the level of the T9-T10 disc space [...] narrowing. Regional osseous marrow is normal in signalcharacteristics. ?? The visualized cervical soft tissues, intrathoracic [...] central canal narrowing and moderate RIGHT T8-T9 subarticularrecess narrowing, question possible caudad migration posterior to the mid T9 vertebral body. ?? 04/05 MRI BRAIN FINDINGS: There is a linear T2 hyperintense lesion in the right centrum semiovale, with several other small subcortical and periventricular areas of T2 signal alteration. There is T2 signal abnormality at the superior aspect of the right brachium pontis, adjacent to the lloyd. The lesion at the right brachiumpontis demonstrates mild enhancement. No enhancement elsewhere. There is no restricted diffusion. No mass effect or shift. ?? IMPRESSION Findings suggestive of demyelination with enhancing and nonenhancing lesions. Labs: Recent Labs 04/06/18 1110 04/05/18138 WBC 16.2* 16.2* 8.1 HGB 15.2 14.3 HCT 43.8 42.7 PLATELET 239 189 Recent Labs 04/05/18138 NA 139 K 3.8 CL 103 CO2 27 BUN 16 CREATININE 0.76* Recent Labs 04/05/18138 AST 19 ALT 20 ALKPHOS 68 BILITOT 0.4 BILIDIR 0.1 Recent Labs 04/05/18138 CALCIUM 9.1 PHOS 4.3 Recent Labs 04/05/18138 PT 13.5* INR 1.2 PTT 34 Recent Labs 04/05/18 1421 TSH 0.30 Recent Results (from the past 168 hour(s)) Basic Metabolic Panel (non-fasting) Collection Time: 04/05/18 1:39 AM Result Value Ref Range Glucose Lvl 106 65 - 199 mg/dL BUN 16 10 - 20 mg/dL Creatinine 0.76 (L) 0.80 - 1.50 mg/dL Sodium 139 135 - 145 mmol/L Potassium 3.8 3.5 - 5.0 mmol/L Chloride 103 98 - 107 mmol/L CO2 27 22 - 31 mmol/L Anion Gap 9 5 - 15 mmol/L Calcium 9.1 8.5 - 10.5 mg/dL eGFR 120 >=60 mL/min/1.73 m?? eGFR 139 >=60 mL/min/1.73 m?? Hepatic Function Panel Collection Time: 04/05/18 1:39 AM Result Value Ref Range Total Protein 6.9 6.1 - 8.0 gm/dL Albumin 4.0 3.2 - 5.2 gm/dL AST 19 0 - 39 unit/L ALT 20 0 - 55 unit/L Alk Phos 68 40 - 120 unit/L Total Bilirubin 0.4 0.2 - 1.3 mg/dL Bili, Direct 0.1 0.0 - 0.3 mg/dL Prothrombin Time Collection Time: 04/05/18 1:39 AM Result Value Ref Range PT 13.5 (H) 9.4 - 12.5 sec INR 1.2 APTT Collection Time: 04/05/18 1:39 AM Result Value Ref Range PTT 34 25 - 37 sec Phosphorus Collection Time: 04/05/18 1:39 AM Result Value Ref Range Phosphorus 4.3 2.5 - 4.5 mg/dL Magnesium Collection Time: 04/05/18 1:39 AM Result Value Ref Range Magnesium 0.87 0.69 - 1.07 mmol/L Lyme IgG & IgM Antibody Collection Time: 04/05/18 1:39 AM Result Value Ref Range Lyme Antibody Neg Neg Hemogram Collection Time: 04/05/18 1:39 AM Result Value Ref Range WBC 8.1 4.0 - 9.5 x10(3)/mcL RBC 5.01 4.58 - 5.54 x10(6)/mcL Hemoglobin 14.3 13.7 - 16.5 gm/dL Hematocrit 42.7 40.5 - 48.5 % MCV 85.2 82.9 - 93.1 fL MCH 28.5 27.5 - 32.1 pg MCHC 33.5 32.0 - 35.7 gm/dL Platelets 189 145 - 357 x10(3)/mcL RDWSD 38.8 36.0 - 45.0 fL RDWCV 12.5 11.4 - 13.8 % MPV 11.5 7.6 - 12.9 fL nRBC % Auto 0.0 % nRBC Abs Auto 0.000 0.000 - 0.000 x10(3)/mcL Differential, Automated Collection Time: 04/05/18 1:39 AM Result Value Ref Range Neutrophils % 64.0 % Neutr Abs (ANC) 5.19 1.70 - 6.10 x10(3)/mcL Lymphocytes % 22.4 % Lymphocytes Abs 1.8 0.9 - 3.2 x10(3)/mcL Monocytes % 11.5 % Monocyte Abs 0.9 0.3 - 0.9 x10(3)/mcL Eosinophils % 1.5 % Eosinophils Abs 0.1 0.0 - 0.4 x10(3)/mcL Basophils % 0.4 % Basophils Abs 0.0 0.0 - 0.1 x10(3)/mcL Immature Gran % 0.20 % Janice Gran Abs 0.02 0.00 - 0.04 x10(3)/mcL Urinalysis with reflex Culture Collection Time: 04/05/18 8:21 AM Result Value Ref Range Glucose UA Negative Negative mg/dL Protein UA Negative Negative mg/dL Bilirubin UA Negative Negative mg/dL Urobilinogen UA Normal Normal mg/dL pH UA 6.0 5.0 - 8.0 Blood UA Negative Negative mg/dL Ketones UA 5 (A) Negative mg/dL Nitrite UA Negative Negative Leukocytes UA Negative Negative mcL Appearance UA Clear Clear Spec Melbeta UA 1.014 1.002 - 1.030 Color UA Yellow Yellow Culture Reflexed No Urine Hold Collection Time: 04/05/18 8:21 AM Result Value Ref Range Urine Hold Sample in lab. HELEN (LEB/CGP) Collection Time: 04/05/18 2:21 PM Result Value Ref Range HELEN Pos, See Titer (A) Neg Extractable Nuclear Antigen (RISA) Ab Collection Time: 04/05/18 2:21 PM Result Value Ref Range RISA Ab Test Result Flag Unit RefValue Ab to Extractable Nuclear Ag Eval,S SS-A/Ro Ab, IgG, S <0.2 U <1.0 (Negative) SS-B/La Ab, IgG, S <0.2 U <1.0 (Negative) Sm Ab, IgG, S <0.2 U <1.0 (Negative) RESTAURANT HOSPITAL[employer] MANAGER Ab, IgG, S 0.8 U <1.0 (Negative) Scl 70 Ab, IgG, S <0.2 U <1.0 (Negative) Katie 1 Ab, IgG, S <0.2 U <1.0 (Negative) Test Performed by: [facility] [address] [place] [address] TSH [place] Collection Time: 04/05/18 2:21 PM Result Value Ref Range TSH 0.30 0.27 - 4.20 mlU/ML Vitamin B12 Collection Time: 04/05/18 2:21 PM Result Value Ref Range Vitamin B-12 567 232 - 1,245 pg/mL DNA Antibody (Double-Stranded) Collection Time: 04/05/18 2:21 PM Result Value Ref Range DNA Ab (DS) Neg Neg HELEN Titer Collection Time: 04/05/18 2:21 PM Result Value Ref Range HELEN Titer Pos at 1:320 (A) HIV Screen, 4th Generation Collection Time: 04/06/18 11:10 AM Result Value Ref Range HIV-1/2 Ab and Ag Negative Negative QuantiFERON-TB Gold Collection Time: 04/06/18 11:10 AM Result Value Ref Range QFT Nil 0.030 IU/mL QFT TB Ag1-Nil -0.010 IU/mL QFT TB Ag2-Nil -0.010 IU/mL QFT Mitogen-Nil 9.820 IU/mL Quantiferon TB Negative Negative Quantiferon TB Interp M. tuberculosis infection NOT likely A [...] affect immune function, or other immunological factors. Hepatitis C Antibody Collection Time: 04/06/18 11:10 AM Result Value Ref Range Hepatitis C Ab Negative Negative Hepatitis B Core Antibody, IgM Collection Time: 04/06/18 11:10 AM Result Value Ref Range Hep B Core IgM Negative Negative Hepatitis B Surface Antibody Collection Time: 04/06/18 11:10 AM Result Value Ref Range HepB Surface Ab Quant 3.5 IU/L HepB Surface Ab Negative Hepatitis B Surface Antigen Collection Time: 04/06/18 11:10 AM Result Value Ref Range HepB Surface Ag Negative Negative CD19 Collection Time: 04/06/18 11:10 AM Result Value Ref Range CD19% 17 6 - 23 % CD19 ABS 257 99 - 473 /mcl WBC 16.2 (H) 4.0 - 9.5 x10(3)/mcL Lymphocytes % 9.6 % Lymphocytes Abs 1.6 0.9 - 3.2 x10(3)/mcL Hemogram Collection Time: 04/06/18 11:10 AM Result Value Ref Range WBC 16.2 (H) 4.0 - 9.5 x10(3)/mcL RBC 5.37 4.58 - 5.54 x10(6)/mcL Hemoglobin 15.2 13.7 - 16.5 gm/dL Hematocrit 43.8 40.5 - 48.5 % MCV 81.6 (L) 82.9 - 93.1 fL MCH 28.3 27.5 - 32.1 pg MCHC 34.7 32.0 - 35.7 gm/dL Platelets 239 145 - 357 x10(3)/mcL RDWSD 37.7 36.0 - 45.0 fL RDWCV 12.8 11.4 - 13.8 % MPV 11.4 7.6 - 12.9 fL nRBC % Auto 0.0 % nRBC Abs Auto 0.000 0.000 - 0.000 x10(3)/mcL Differential, Automated Collection Time: 04/06/18 11:10 AM Result Value Ref Range Neutrophils % 87.2 % Neutr Abs (ANC) 14.14 (H) 1.70 - 6.10 x10(3)/mcL Lymphocytes % 9.6 % Lymphocytes Abs 1.6 0.9 - 3.2 x10(3)/mcL Monocytes % 2.8 % Monocyte Abs 0.5 0.3 - 0.9 x10(3)/mcL Eosinophils % 0.0 % Eosinophils Abs 0.0 0.0 - 0.4 x10(3)/mcL Basophils % 0.1 % Basophils Abs 0.0 0.0 - 0.1 x10(3)/mcL Immature Gran % 0.30 % Janice Gran Abs 0.05 (H) 0.00 - 0.04 x10(3)/mcL Immunoglobulins, Quantitative Collection Time: 04/06/18 11:10 AM Result Value Ref Range IgG 1,151 700 - 1,600 mg/dL IgA 426 (H) 70 - 400 mg/dL IgM 101 40 - 230 mg/dL Protein Level CSF Collection Time: 04/06/18 3:40 PM Result Value Ref Range T Protein, CSF 30 15 - 45 mg/dL Xanthochromia Neg Glucose Level CSF Collection Time: 04/06/18 3:40 PM Result Value Ref Range Glucose, CSF 132 mg/dL CSF DESC 1 Collection Time: 04/06/18 3:40 PM Result Value Ref Range Tube Num CSF #1 1 Color CSF #1 Colorless Colorless Appear CSF #1 Clear Clear Tot Vol CSF #1 2.0 mL CSF DESC 2 Collection Time: 04/06/18 3:40 PM Result Value Ref Range Tube Num CSF #2 2 Color CSF #2 Colorless Colorless Appear CSF #2 Clear Clear Tot Vol CSF #2 2.2 mL CSF DESC 3 Collection Time: 04/06/18 3:40 PM Result Value Ref Range Tube Num CSF #3 3 Color CSF #3 Colorless Colorless Appear CSF #3 Clear Clear Tot Vol CSF #3 3.0 mL CSF DESC 4 Collection Time: 04/06/18 3:40 PM Result Value Ref Range Tube Num CSF #4 4 Color CSF #4 Colorless Colorless Appear CSF #4 Clear Clear Tot Vol CSF #4 2.5 mL CSF Cell Count Collection Time: 04/06/18 3:40 PM Result Value Ref Range Tube # Ct CSF [address] 3 0 - 5 /mcl RBC CSF CT 1 /mcl Enterovirus PCR, CSF Collection Time: 04/06/18 3:41 PM Result Value Ref Range Enterovirus PCR, Qualitative Negative Negative CSF Culture Collection Time: 04/06/18 3:41 PM Result Value Ref Range Central Nervous System Culture No growth Gram Stain Cytocentrifuge Gram Stain performed No Neutrophils seen. No microorganisms seen. Pending Studies and Lab Data: The patient will need the following 4 tests completed on: 04/03/2018 1. Oligoclonal Banding CSF 3. Myelin Basic Protein, CSF 2. IgG Index CSF 4. Varicella zoster Antibody, IgG Diagnosis: Authorizing Provider: Amos Deleon MD, Erick York III, MD Vital Signs at Discharge: BP: 133/76, Heart Rate: 61, Temp: 36.6 ??C (97.9 ??F), Resp: 22, BMI (Calculated): 31.79 Height: 175.3 cm (5' 9) (04/04/182156) Weight: 97.7 kg (215 lb 4.8 oz) (04/04/182156) Functional and Cognitive Status: He is independently mobile without assistive devices. He is independent of IADLS as well and at hisbaseline. Physical Exam at Discharge: Gen: Patient of apparent stated age, well nourished, well developed, in NAD CV: RRR Resp: CTA??BL Abd: Normoactive bowel sounds, soft, nontender, nondistended Ext: No edema, no bony deformity ?? Neuro??Exam: MS: A&Ox4, clear language??without expressive or receptive aphasia, no dysarthria, follows commands CN: ?PERRLA, EOMI, visual joiner full ? No facial asymmetry ?Hearing intact to voice ? tongue protrudes midline with normal ROM ?SCM and trap strength intact Motor: ??Normal bulk and tone. ?UE: ?5/5 R, 5/5 L ?Arm abduction at shoulder ?5/5 R, 5/5 L ?Elbow extension ?5/5 R, 5/5 L ?Elbow flexion ?5/5 R, 5/5 L ?Knock Up Assembler ?5/5 R, 5/5 L ?Thumb flexion ?LE: ?5/5 R, 5/5 L ?Hip flexion ?5/5 R, 5/5 L ?Knee extension ?5/5 R, 5/5 L ?Knee flexion ?5/5 R, 5/5 L ?Foot dorsiflexion ?5/5 R, 5/5 L ?Foot plantar flexion Sensation:??Decreased sensation to sharp object on RUE, full right leg, and proximal left leg. Decreased vibratory sense of RLE. Decreased sensation of soft touch on R lateral anterior neck, RUE and RLE. Sensation of temperature intact throughout. Per admission: great toe proprioception is normal Reflexes: ?Babinski - R down, L down? Coordination: ?? Finger to nose intact??with no dysmetria ?Rapid alternating movements??& Finger tapping smooth though asymmetric and slightly slower with R hand ?No tremor at rest or with motion Gait:??did not assess Discharge Conditions/Prognosis: Multiple Sclerosis, stable Discharge to: Home with home health Updated Allergies/ADRs: No Known Allergies Immunizations Given this Hospitalization: Immunization History Administered Date(s) Administered ??? Influenza PF, Split 12/01/2015 Discharge Medications: Your Medications New Medications Dose Details baclofen 10 mg Tab Commonly known as: LIORESAL Take 1 tablet by mouth 3 times daily. 10 mg Quantity: 90 tablet Refills: 0 Continued medications with new dosing Dose Details diazePAM 5 mg Tab Commonly known as: VALIUM Take 1 tablet by mouth nightly as needed for Muscle spasms. What changed: ?? when to take this ?? reasons to take this 5 mg Quantity: 14 tablet Refills: 0 predniSONE 20 mg Tab Commonly known as: DELTASONE Take 1 tablet by mouth See Admin Instructions. Take 3 tabs x 3d, 2.5 tabs x 3d, 2 tabs x 3d, 1.5 tab x 3d, 1 tab x 3d, and 0.5 tab x 3d What changed: See the new instructions. 20 mg Quantity: 32 tablet Refills: 0 Continued medications, unchanged Dose Details arginine 500 mg Tab Take 1,000 mg by mouth daily. 1000 mg Refills: 0 b complex vitamins Cap Take 1 capsule by mouth daily. 1 capsule Refills: 0 methylphenidate HCl 20 mg Tab Commonly known as: RITALIN Take 20 mg by mouth 3 times daily. 20 mg Refills: 0 NIFEdipine 30 mg Tbsr Commonly known as: ADALAT CC Take 30 mg by mouth daily. 30 mg Refills: 0 traMADol 50 mg Tab Commonly known as: ULTRAM Take 1 tablet by mouth every 4 hours as needed for Pain. 50 mg Quantity: 60 tablet Refills: 0 STOPPED Medications RX ADULT COMPOUNDED MEDICATION Smoking Status at Discharge: Social History Tobacco Use Smoking Status Former Smoker ??? Last attempt to quit: 04/25/2014 ??? Years since quittin.9 Smokeless Tobacco Never Used Instructions Given to Patient at Discharge: Patient Instructions Instruction after leaving the hospital Why you were hospitalized: You were admitted to the neurology service at [facility] for numbness in your legs and right neck and you were diagnosed with Multiple Sclerosis (MS). We discussed that you were having trouble feeling when your bladder was full so we recommended thatyou do timed voiding which means going to the bathroom every 2-3 hours whether or not you feel the need to go. This will help your body get used to the feeling of when your bladder is full and willavoid injuring your bladder. Changes in Your Medications: You are going to taper down off the steroids over the next several days. You will do this by mg (3 tabs) for 3 days, then 50 mg (2.5 tabs) for 3days, then 40 mg (2 tabs) x 3days, then 30 mg(1.5 tab) for three days, THEN 20 mg (1 tab) for three days, and THEN 10 mg (0.5 tab) for 3 days, THEN STOP. Your Medications New Medications Dose Details baclofen 10 mg Tab Commonly known as: LIORESAL Take 1 tablet by mouth 3 times daily. 10 mg Quantity: 90 tablet Refills: 0 Continued medications with new dosing Dose Details diazePAM 5 mg Tab Commonly known as: VALIUM Take 1 tablet by mouth nightly as needed for Muscle spasms. What changed: ?? when to take this ?? reasons to take this 5 mg Quantity: 14 tablet Refills: 0 predniSONE 20 mg Tab Commonly known as: DELTASONE Take 1 tablet by mouth See Admin Instructions. Take 3 tabs x 3d, 2.5 tabs x 3d, 2 tabs x 3d, 1.5 tab x 3d, 1 tab x 3d, and 0.5 tab x 3d What changed: See the new instructions. 20 mg Quantity: 32 tablet Refills: 0 Continued medications, unchanged Dose Details arginine 500 mg Tab Take 1,000 mg by mouth daily. 1000 mg Refills: 0 b complex vitamins Cap Take 1 capsule by mouth daily. 1 capsule Refills: 0 methylphenidate HCl 20 mg Tab Commonly known as: RITALIN Take 20 mg by mouth 3 times daily. 20 mg Refills: 0 NIFEdipine 30 mg Tbsr Commonly known as: ADALAT CC Take 30 mg by mouth daily. 30 mg Refills: 0 traMADol 50 mg Tab Commonly known as: ULTRAM Take 1 tablet by mouth every 4 hours as needed for Pain. 50 mg Quantity: 60 tablet Refills: 0 STOPPED Medications RX ADULT COMPOUNDED MEDICATION Patient Instructions: ??? Continue your medications as prescribed and attend your follow-up appointments. ??? Call your doctor or seek medical attention if you develop the following concerning symptoms: ??? fever, chest pain, severe shortness of breath, nausea with vomiting, persistent decrease in your urinary output, severe pain, ??? weakness or numbness in your face or one of your limbs or difficulty speaking ??? loss of vision ??? seizures or loss of consciousness ??? Diet: No new restrictions. We recommend a heart healthy diet: low fat, low cholesterol, low concentrated sweets. ??? Activity Restrictions: As tolerated ??? Driving Restrictions: Please do not drive if you feel lightheaded, dizzy, faint, or are taking any opioids/narcotics (i.e oxycodone). If so, it is advisable that you do not drive till you follow-up with your primary care physician. ??? Home oxygen therapy: none needed ??? Anticoagulation Follow-up and Instructions: none Follow-Up Appointments: You will have an outpatient followup appointment in the neurology clinic at [facility]. If not already listed in this document, we will contact you to schedule this appointment. -- If 1 week passes by after you are discharged and you still do not have an appointment, please call [phone]. Future Appointments and Orders Future Orders Complete By Expires Referral to Home Health - at DISCHARGE [HOF7802 CPT(R)] As directed Process Instructions: Scheduling Instructions: Comments: DOCUMENTATION FOR VNA SERVICES (INCLUDING THOSE PATIENTS WITH MEDICARE COVERAGE REQUIRING HOME VNA SERVICES AND/OR HOSPICE SERVICES) PATIENT'S LOCATION: Erick Narvaeznia [address] [address] [place] [phone] Administrator's Name: self In discussion with the attending physician, it is certified that this patient is under their care and that they, or a Nurse Practitioner,Clinical Nurse specialist or Physician Director Utilization Management who is working directly with them, had a face to face encounter that meets the physician face to face encounter requirements with this patient on 04/07/18 The encounter with the patient was in whole, or in part, for the following medical condition, whichis the primary reason for home health care services: Multiple sclerosis related gait instability In discussion with the provider, it is certified that, based on their findings, the following services are medically necessary for home health services. To provide the following care/treatments with the clinical findings supporting the need for services as follows: HOME CARE ORDERS: RN ORDERS:Assess wound or incision, vital signs, cardiopulmonary status, nutrition, hydration, elimination, meds effectiveness and management; reinforce education re health issues PT ORDERS: Continue rehab for endurance, gait stability and strength with mobility and transfers. Home safety evaluation. Home exercise program if appropriate. OT: assess and continue rehab for managing ADL's. HOME HEALTH CARE AGENCY: [facility] Start of care: 04/10/18 or 04/11/18 Please note that any additional orders needs or changes will need to be obtained from this patient's PCP: Rodriguez Roberts MD [address] / [facility] [phone] All VNA agencies which cover the area of patient's residence have been reviewed, either verbally samson writing, and patient/family have chosen the home health care agency noted Questions: Agency name and contact information: [place] Patient location post discharge: Home What services are requested: Registered Nurse Physical Therapy Occupational Therapy Start date: Responsible MD post discharge contact info: PCP Referral to Neurology [REF46 Custom] As directed Process Instructions: If no progress note charted, please enter Clinical details in comments. Scheduling Instructions: Questions: My question or request is: Newly diagnosed MS follow-up with Dr. Erick York. Your Primary Care Provider: Rodriguez Roberts MD [address] / [facility] [phone] Your Inpatient Doctor(s) at [facility]: No att. providers found - Attending physician GEORGETTE MONAE PA - Resident physician General Instructions None Future Appointments and Orders Future Orders Complete By Expires Referral to Home Health - at DISCHARGE [[id number] CPT(R)] As directed Process Instructions: Scheduling Instructions: Comments: DOCUMENTATION FOR VNA SERVICES (INCLUDING THOSE PATIENTS WITH MEDICARE COVERAGE REQUIRING HOME VNA SERVICES AND/OR HOSPICE SERVICES) PATIENT'S LOCATION: Erick Narvaez[address] [address] [place] [phone] Administrator's Name: self In discussion with the attending physician, it is certified that this patient is under their care and that they, or a Nurse Practitioner,Clinical Nurse specialist or Physician Director Utilization Management who is working directly with them, had a face to face encounter that meets the physician face to face encounter requirements with this patient on 04/07/18 The encounter with the patient was in whole, or in part, for the following medical condition, whichis the primary reason for home health care services: Multiple sclerosis related gait instability In discussion with the provider, it is certified that, based on their findings, the following services are medically necessary for home health services. To provide the following care/treatments with the clinical findings supporting the need for services as follows: HOME CARE ORDERS: RN ORDERS:Assess wound or incision, vital signs, cardiopulmonary status, nutrition, hydration, elimination, meds effectiveness and management; reinforce education re health issues PT ORDERS: Continue rehab for endurance, gait stability and strength with mobility and transfers. Home safety evaluation. Home exercise program if appropriate. OT: assess and continue rehab for managing ADL's. HOME HEALTH CARE AGENCY: [facility] Start of care: 04/10/18 or 04/11/18 Please note that any additional orders needs or changes will need to be obtained from this patient's PCP: Rodriguez Roberts MD [address] / [facility] [id number] All VNA agencies which cover the area of patient's residence have been reviewed, either verbally samson writing, and patient/family have chosen the home health care agency noted Questions: Agency name and contact information: [place] Patient location post discharge: Home What services are requested: Registered Nurse Physical Therapy Occupational Therapy Start date: Responsible MD post discharge contact info: PCP Referral to Neurology [REF46 Custom] As directed Process Instructions: If no progress note charted, please enter Clinical details in comments. Scheduling Instructions: Questions: My question or request is: Newly diagnosed MS follow-up with Dr. Erick York. No future appointments. Primary Care Provider: Rodriguez Roberts MD [address] [id number] / [facility] [id number] Discharge References/Attachments None documented in this encounter Discharge Instructions * Patient Instructions* Georgette Monae PA - 04/06/2018 1:08 PM EST Instruction after leaving the hospital Why you were hospitalized: You were admitted to the neurology service at [facility] for numbness in your legs and right neck and you were diagnosed with Multiple Sclerosis (MS). We discussed that you were having trouble feeling when your bladder was full so we recommended thatyou do timed voiding which means going to the bathroom every 2-3 hours whether or not you feel the need to go. This will help your body get used to the feeling of when your bladder is full and willavoid injuring your bladder. Changes in Your Medications: You are going to taper down off the steroids over the next several days. You will do this by hyfboq11 mg (3 tabs) for 3 days, then 50 mg (2.5 tabs) for 3days, then 40 mg (2 tabs) x 3days, then 30 mg(1.5 tab) for three days, THEN 20 mg (1 tab) for three days, and THEN 10 mg (0.5 tab) for 3 days, THEN STOP. Your Medications New Medications Dose Details baclofen 10 mg Tab Commonly known as: LIORESAL Take 1 tablet by mouth 3 times daily. 10 mg Quantity: 90 tablet Refills: 0 Continued medications with new dosing Dose Details diazePAM 5 mg Tab Commonly known as: VALIUM Take 1 tablet by mouth nightly as needed for Muscle spasms. What changed: ?? when to take this ?? reasons to take this 5 mg Quantity: 14 tablet Refills: 0 predniSONE 20 mg Tab Commonly known as: DELTASONE Take 1 tablet by mouth See Admin Instructions. Take 3 tabs x 3d, 2.5 tabs x 3d, 2 tabs x 3d, 1.5 tab x 3d, 1 tab x 3d, and 0.5 tab x 3d What changed: See the new instructions. 20 mg Quantity: 32 tablet Refills: 0 Continued medications, unchanged Dose Details arginine 500 mg Tab Take 1,000 mg by mouth daily. 1000 mg Refills: 0 b complex vitamins Cap Take 1 capsule by mouth daily. 1 capsule Refills: 0 methylphenidate HCl 20 mg Tab Commonly known as: RITALIN Take 20 mg by mouth 3 times daily. 20 mg Refills: 0 NIFEdipine 30 mg Tbsr Commonly known as: ADALAT CC Take 30 mg by mouth daily. 30 mg Refills: 0 traMADol 50 mg Tab Commonly known as: ULTRAM Take 1 tablet by mouth every 4 hours as needed for Pain. 50 mg Quantity: 60 tablet Refills: 0 STOPPED Medications RX ADULT COMPOUNDED MEDICATION Patient Instructions: ??? Continue your medications as prescribed and attend your follow-up appointments. ??? Call your doctor or seek medical attention if you develop the following concerning symptoms: ??? fever, chest pain, severe shortness of breath, nausea with vomiting, persistent decrease in your urinary output, severe pain, ??? weakness or numbness in your face or one of your limbs or difficulty speaking ??? loss of vision ??? seizures or loss of consciousness ??? Diet: No new restrictions. We recommend a heart healthy diet: low fat, low cholesterol, low concentrated sweets. ??? Activity Restrictions: As tolerated ??? Driving Restrictions: Please do not drive if you feel lightheaded, dizzy, faint, or are taking any opioids/narcotics (i.e oxycodone). If so, it is advisable that you do not drive till you follow-up with your primary care physician. ??? Home oxygen therapy: none needed ??? Anticoagulation Follow-up and Instructions: none Follow-Up Appointments: You will have an outpatient followup appointment in the neurology clinic at [facility]. If not already listed in this document, we will contact you to schedule this appointment. -- If 1 week passes by after you are discharged and you still do not have an appointment, please call [phone]. Future Appointments and Orders Future Orders Complete By Expires Referral to Home Health - at DISCHARGE [[id number] CPT(R)] As directed Process Instructions: Scheduling Instructions: Comments: DOCUMENTATION FOR VNA SERVICES (INCLUDING THOSE PATIENTS WITH MEDICARE COVERAGE REQUIRING HOME VNA SERVICES AND/OR HOSPICE SERVICES) PATIENT'S LOCATION: Erick Chacon [address] [address] [place] [phone] Administrator's Name: self In discussion with the attending physician, it is certified that this patient is under their care and that they, or a Nurse Practitioner,Clinical Nurse specialist or Physician Director Utilization Management who is working directly with them, had a face to face encounter that meets the physician face to face encounter requirements with this patient on 04/07/18 The encounter with the patient was in whole, or in part, for the following medical condition, whichis the primary reason for home health care services: Multiple sclerosis related gait instability In discussion with the provider, it is certified that, based on their findings, the following services are medically necessary for home health services. To provide the following care/treatments with the clinical findings supporting the need for services as follows: HOME CARE ORDERS: RN ORDERS:Assess wound or incision, vital signs, cardiopulmonary status, nutrition, hydration, elimination, meds effectiveness and management; reinforce education re health issues PT ORDERS: Continue rehab for endurance, gait stability and strength with mobility and transfers. Home safety evaluation. Home exercise program if appropriate. OT: assess and continue rehab for managing ADL's. HOME HEALTH CARE AGENCY: [facility] Start of care: 04/10/18 or 04/11/18 Please note that any additional orders needs or changes will need to be obtained from this patient's PCP: Rodriguez Roberts MD [address] / [place] [phone] All VNA agencies which cover the area of patient's residence have been reviewed, either verbally samson writing, and patient/family have chosen the home health care agency noted Questions: Agency name and contact information: [place] Patient location post discharge: Home What services are requested: Registered Nurse Physical Therapy Occupational Therapy Start date: Responsible MD post discharge contact info: PCP Referral to Neurology [REF46 Custom] As directed Process Instructions: If no progress note charted, please enter Clinical details in comments. Scheduling Instructions: Questions: My question or request is: Newly diagnosed MS follow-up with Dr. Erick York. Your Primary Care Provider: Rodriguez Roberts MD [address] / [place] [address] [phone] Your Inpatient Doctor(s) at [facility]: No att. providers found - Attending physician TITI RIVER - Resident physician documented in this encounter Medications at Time [...] by mouth 3 times daily. 0 10/17/2014 baclofen (LIORESAL) 10 mg Tablet Take 1 tablet by mouth 3 times daily. 90 tablet 04/07/2018 06/02/2018 predniSONE (DELTASONE) 20 mg Tablet Take 1 tablet by mouth See Admin Instructions. Take 3 tabs x 3d, 2.5 tabs x 3d, 2 tabs x 3d, 1.5 tab x 3d, 1 tab x 3d, and 0.5 tab x 3d 32 tablet 04/08/2018 05/16/2018 NIFEdipine (ADALAT CC) 30 mg Tablet Sustained Release Take 30 mg by mouth daily. 06/01/2020 arginine 500 mg Tablet Take 1,000 mg by mouth daily. 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 A letter describing our affiliations was reviewed with them and they were educated about their right to choose where referrals are placed. Patient requests referral to [facility]. PHONE: [phone] FAX: [phone]. Expected date of discharge: discharged on 04/06/18. Referral routed to the Veteran Appeals Reviewer for matching with agency/vendor and to provide any required information. * Any Martin RN - 04/07/2018 3:29 PM EST Patient Name: Erick Chacon Patient Age: 32 y.o. Birthdate: 1985 Admit date: 04/04/2018 Attending Physician: Erick York III, MD Patient was discharged home with VNA services after 1500 with his family driving him home. He was escorted to the [place] entrance and into family's truck without difficulty. They stated understanding of his discharge instructions. He stated he moved his bowels overnight and was encouraged to use theurinal. We discussed starting a voiding schedule, and perhaps set his phone timer to remind him to t ry to void every 2-3 hours. I gave him a urinal to take home to help keep track of his voiding habits. His PVR this shift was < 100 ml's. MD was aware he requested ultram for pain prn at home and was added on at discharge. He is fairly steady, but needs strengthening. He is eating well, and rested late this morning. He continues to state numbness from his umbilicus down, including his right arm and right neck. He stated he thinks it feels a little better. Pain was an 8/10 in his lower back, but the ultram helped. No other issues noted. * Melissa Blake I - 04/07/2018 7:06 AM EST Neurology Progress Note Patient Name: Erick Chacon Admit Date: 04/04/2018 Attending: Dr. York Patient ID: Erick Chacon is a 32 y.o. right handed man with a PMH of fibromyalgia, ADHD, low back pain, Reynaud's (involving feet, fingers, nose), HTN, leg abscess at age 23 who presented in transfer from [facility] for further evaluation of numbness of the right neck x 6 daysfollowed by numbness of lower extremities x 4 days. Interval History: - LP completed yesterday, uneventful - Numbness continues overnight, at baseline to hands and feet - Continues to complain of pain, given tramadol with good effect - Complains of unable to tell if voiding completely, bladderscans pre and post void, lastest PVR of75 cc - No acute events overnight Medications: Scheduled Meds: ??? baclofen 10 mg Oral TID ??? [START ON 04/08/2018] predniSONE 60 mg Oral Daily Followed by ??? [START ON 04/11/2018] predniSONE 50 mg Oral Daily Followed by ??? [START ON 04/14/2018] predniSONE 40 mg Oral Daily Followed by ??? [START ON 04/17/2018] predniSONE 30 mg Oral Daily Followed by ??? [START ON 04/20/2018] predniSONE 20 mg Oral Daily Followed by ??? [START ON 04/23/2018] predniSONE 10 mg Oral Daily ??? methylPREDNISolone 1,000 mg Intravenous Daily ??? pantoprazole 40 mg Oral Daily ??? methylphenidate HCl 20 mg Oral TID AC ??? NIFEdipine 30 mg Oral Daily ??? sodium chloride 0.9 % 5 mL Intravenous BID ??? senna-docusate 2 tablet Oral BID Continuous Infusions: PRN Meds:.diazePAM, traMADol, sodium chloride 0.9 %, bisacodyl, magnesium hydroxide, acetaminophen Physical Exam: Vitals: Temp: [36.9 ??C (98.4 ??F)-37.2 ??C (98.9 ??F)] Heart Rate: -- Resp: [20-22] BP: (124-147)/(73-82) SpO2: [96 %-99 %] Heart Rate from SPO2: [76 bpm-88 bpm] Gen: Patient of apparent stated age, well nourished, well developed, in NAD CV: RRR Resp: CTA BL Abd: Normoactive bowel sounds, soft, nontender, nondistended Ext: No edema, no bony deformity Neuro Exam: MS: A&Ox4, clear language without expressive or receptive aphasia, no dysarthria, follows commands CN: PERRLA, EOMI, visual joiner full No facial asymmetry Hearing intact to voice tongue protrudes midline with normal ROM SCM and trap strength intact Motor: Normal bulk and tone. ?UE: ?5/5 R, 5/5 L ?Arm abduction at shoulder ?5/5 R, 5/5 L ?Elbow extension ?5/5 R, 5/5 L ?Elbow flexion ?5/5 R, 5/5 L ?Knock Up Assembler ?5/5 R, 5/5 L Thumb flexion ?LE: ? 5/5 R, 5/5 L ?Hipflexion ?5/5 R, 5/5 L ?Knee extension ?5/5 R, 5/5 L ?Knee flexion ?5/5 R, 5/5 L ?Foot dorsiflexion ?55 R, 5 L ?Foot plantar flexion Sensation: Decreased sensation to sharp object on RUE, full right leg, and proximal left leg. Decreased vibratory sense of RLE. Decreased sensation of soft touch on R lateral anterior neck, RUE and RLE. Sensation of temperature intact throughout. Per admission: great toe proprioception is normal Reflexes: Babinski - R down, L down Coordination: Finger to nose intact with no dysmetria Rapid alternating movements & Finger tapping smooth though asymmetric and slightly slower with R hand No tremor at rest or with motion Gait: did not assess Labs: Recent Results (from the past 24 hour(s)) HIV Screen, 4th Generation Result Value Ref Range HIV-1/2 Ab and Ag Negative Negative Hepatitis C Antibody Result Value Ref Range Hepatitis C Ab Negative Negative Hepatitis B Core Antibody, IgM Result Value Ref Range Hep B Core IgM Negative Negative Hepatitis B Surface Antibody Result Value Ref Range HepB Surface Ab Quant 3.5 IU/L HepB Surface Ab Negative Hepatitis B Surface Antigen Result Value Ref Range HepB Surface Ag Negative Negative CD19 Result Value Ref Range WBC 16.2 (H) 4.0 - 9.5 x10(3)/mcL Lymphocytes % 9.6 % Lymphocytes Abs 1.6 0.9 - 3.2 x10(3)/mcL Hemogram Result Value Ref Range WBC 16.2 (H) 4.0 - 9.5 x10(3)/mcL RBC 5.37 4.58 - 5.54 x10(6)/mcL Hemoglobin 15.2 13.7 - 16.5 gm/dL Hematocrit 43.8 40.5 - 48.5 % MCV 81.6 (L) 82.9 - 93.1 fL MCH 28.3 27.5 - 32.1 pg MCHC 34.7 32.0 - 35.7 gm/dL Platelets 239 145 - 357 x10(3)/mcL RDWSD 37.7 36.0 - 45.0 fL RDWCV 12.8 11.4 - 13.8 % MPV 11.4 7.6 - 12.9 fL nRBC % Auto 0.0 % nRBC Abs Auto 0.000 0.000 - 0.000 x10(3)/mcL Differential, Automated Result Value Ref Range Neutrophils % 87.2 % Neutr Abs (ANC) 14.14 (H) 1.70 - 6.10 x10(3)/mcL Lymphocytes % 9.6 % Lymphocytes Abs 1.6 0.9 - 3.2 x10(3)/mcL Monocytes % 2.8 % Monocyte Abs 0.5 0.3 - 0.9 x10(3)/mcL Eosinophils % 0.0 % Eosinophils Abs 0.0 0.0 - 0.4 x10(3)/mcL Basophils % 0.1 % Basophils Abs 0.0 0.0 - 0.1 x10(3)/mcL Immature Gran % 0.30 % Janice Gran Abs 0.05 (H) 0.00 - 0.04 x10(3)/mcL Immunoglobulins, Quantitative Result Value Ref Range IgG 1,151 700 - 1,600 mg/dL IgA 426 (H) 70 - 400 mg/dL IgM 101 40 - 230 mg/dL Protein Level CSF Result Value Ref Range T Protein, CSF 30 15 - 45 mg/dL Xanthochromia Neg Glucose Level CSF Result Value Ref Range Glucose, CSF 132 mg/dL CSF DESC 1 Result Value Ref Range Tube Num CSF #1 1 Color CSF #1 Colorless Colorless Appear CSF #1 Clear Clear Tot Vol CSF #1 2.0 mL CSF DESC 2 Result Value Ref Range Tube Num CSF #2 2 Color CSF #2 Colorless Colorless Appear CSF #2 Clear Clear Tot Vol CSF #2 2.2 mL CSF DESC 3 Result Value Ref Range Tube Num CSF #3 3 Color CSF #3 Colorless Colorless Appear CSF #3 Clear Clear Tot Vol CSF #3 3.0 mL CSF DESC 4 Result Value Ref Range Tube Num CSF #4 4 Color CSF #4 Colorless Colorless Appear CSF #4 Clear Clear Tot Vol CSF #4 2.5 mL CSF Cell Count Result Value Ref Range Tube # Ct CSF [address] 3 0 - 5 /mcl RBC CSF CT 1 /mcl Enterovirus PCR, CSF Result Value Ref Range Enterovirus PCR, Qualitative Negative Negative CSF Culture Result Value Ref Range Gram Stain Cytocentrifuge Gram Stain performed No Neutrophils seen. No microorganisms seen. Last 3 wbc, hgb, hct plt Recent Labs 04/06/18 1110 04/05/18138 WBC 16.2* 16.2* 8.1 HGB 15.2 14.3 HCT 43.8 42.7 PLATELET 239 189 Last 3 Lytes Recent Labs 04/05/18 013 NA 139 K 3.8 CL 103 CO2 27 BUN 16 CREATININE 0.76* Last 3 LFTs Recent Labs 04/05/18 0139 AST 19 ALT 20 ALKPHOS 68 BILITOT 0.4 BILIDIR 0.1 Last Ca, Mg, Phos Recent Labs 04/05/18 0139 CALCIUM 9.1 PHOS 4.3 Last 3 Coags Recent Labs 04/05/18 0139 PT 13.5* INR 1.2 PTT 34 Last 3 TFT Recent Labs 04/05/18 1421 TSH 0.30 Diagnostic Tests and Imaging: MRI of the brain wwo contrast 04/05/18: FINDINGS: There is a linear T2 hyperintense lesion in the right centrum semiovale, with several other small subcortical and periventricular areas of T2 signal alteration. There is T2 signal abnormality at the superior aspect of the right brachium pontis, adjacent to the lloyd. The lesion at the right brachium pontis demonstrates mild enhancement. No enhancement elsewhere. There is no restricted diffusion. No mass effect or shift. IMPRESSION Findings suggestive of demyelination with enhancing and nonenhancing lesions. MRI total spine wwo contrast 04/04/18: IMPRESSION 1. ??Multifocal nonexpansile T2 signal alteration within the cervical and thoracic cord, with 3 enhancing lesions in the cervical cord as above. Differential diagnosis includes demyelinating disease such as multiple sclerosis. MRI with and without contrast suggested of the brain.. 2. ??Disc extrusion T8-T9 with moderate central canal narrowing and moderate RIGHT T8-T9 subarticular recess narrowing, question possible caudad migration posterior to the mid T9 vertebral body. Assessment: 32 yo M with PMH of HTN, fibromyalgia, muscle spasms, ADHD, chronic low back pain w/ L5-S1 radiculopathy and electrical shocks down spine and legs with bending over(gets epidural injections at pain clinic) who transferred from [facility] for further evaluation of numbness of the right neck x 6 days followed by numbness of lower extremities x 4 days + difficulty with balancing due to not being able to sense his foot position. He has been experiencing episodes of decreased sensation and parasthesias in the past, as well as likely MR related chest pain. MRI of the brain and spine show multiple enhancing lesions concerning for a demyelinating process. LP results are pending but he meets clinical criteria for MS. He is completing his IV steroid course today and will undergo a PO steroid taper with outpatient neurology follow up. ?? Plan: # Enhancing lesions of brain and spinal cord with electrical-like pain and decreased sensation - Meets clinical dx of MS - Neuro check & vitals Q6hrs - IR guided lumbar puncture completed 04/06, results pending - Valium 2.5-5 mg QHS PRN for muscle spasms - Baclofen 10 mg TID for muscle spasms - Continue home Tramadol 50 mg q4h PRN pain - Post void residual bladder scan, if >100cc of urine then will start Flomax - Scheduled voiding every 2-3 hours - PT/OT/INTERLOCKING AND SIGNAL MECHANIC - Pending labs for future immunotherapy consideration - Continue methlypred 1g x 3d, plan for PO steroid taper afterwards ?? #HTN -Continue nifedipine 30 mg qd ?? #ADHD -Continue home Ritalin 20 mg TID # Prophylaxis -Lovenox 40mg SC daily - held for LP -RBOs -SCDs ?? # Supportive care -Regular diet -Tylenol PRN -Up with assistance ??-Code Status: FULL CODE Melissa Blake MD General Neurology [id number] 04/07/18 Associated attestation - Erick York III, MD - 04/07/2018 2:36 PM EST Neurology Attending Attestation I saw and evaluated Erickmichele Chacon with Dr. Blake, neurology resident. I have reviewed the medical records and the patient's history and I agree with the details as written. My physical examination confirms the findings. The assessment and plan were formulated in discussion with me and I agree with them as documented. 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 FUV with me and Dr. Resendiz in 2 weeks Initial CSF results - normal nucleated cell count, RBC#, protein and glucose; All other labs pending Erick York III, MD Pager: [phone] 2:35 PM 04/07/2018 * Zahra Dean RN - 04/06/2018 11:40 PM EST Patient offers complaints of pain, tramadol given with good relief. Patientt states his numbness continues at baseline. Patient continues to note numbness and tingling in his arms and feet * Nneka Villarreal, RN - 04/06/2018 9:07 PM EST Pt A.O. X4, remains on Q4hr neuro checks throughout day. Reports continued numbness from level of umbilicus down to toes b/l. RLE with > numbness than LLE. Maintains sensation. Appreciable difficulty with coordination at times (heel to toe walking in shell). Denies tingling. Reports pain as baseline pain in lower back 07/30. Pt states this is an ongoing issue. Received scheduled and PRN medications to assist with pain with minimal relief, team aware. Pt went for LP procedure this afternoon, tolerated well. Site dressing changed at 1845, CDI, no drainage, denies headache. VSS, on RA. Ambulating independently in room. Toleraing PO well, appetite good. Last BM today. Pt states, sometimes after I pee, its hard to tell if I emptied all the way. Team aware. Bladder scan for approx 500 ml, urinated 425 immediately after. Pt instructed to notify RN if he feels the urge to urinate this evening to obtain a pre & post bladder scan. table games shift manager RN made aware of MD request for bladder scan. Cousin Cedric at bedside for most of shift. Emotional support provided to pt and family. Social work by to see pt, plans to f/u tomorrow. Educational materials on MS printed out from [employer] and [place] cousin Cedric for informational purposes. Pt encourage to f/u directly with MS clinic and educational RNs regarding diagnosis. * Analy Sandra MSW - 04/06/2018 4:45 PM EST Objective: LAUNDRETTE OWNER was requested by ANTONIO NERI to meet with patient to address his questions about disability. LAUNDRETTE OWNER introduced self and role to patient's cousin Sheyla. Patient currently off the floor. LAUNDRETTE OWNER reviewed resources about [facility] which assist [facility] under the age of 60 with a disability apply for disability and other resources. Sheyla was tearful during this visit. She reports she and patient are still trying to process new dx of MS. Sheyla is concerned because patient has depression and has a dog and now cannot work. She is concerned he is overwhelmed and will not process this alone and needs support. LAUNDRETTE OWNER reviewed possible options for the dog (train as a therapy dog class or temporary foster care). Sheyla reports patient wants to learn how to drain his dog and possible have dog become a therapy/emotional dog, but needs the resources. Sheyla reports most importantly she wants someone to see patient for emotional support (if able tomorrow). LAUNDRETTE OWNER relayed to unit RN and Sheyla can have weekend certified social workers in health care check in on him and if here on Monday, this publications writer will follow up with him. Sheyla appreciative of support and resources during this visit. Plan: LAUNDRETTE OWNER will follow until discharge. BRIAN Busch Pager [phone] * Ashlee Hendrickson, PT - 04/06/2018 3:04 PM EST Physical Therapy Evaluation Pertinent History of Current Problem: Per MD: 32 y.o. right handed man with a PMH of fibromyalgia, ADHD, low back pain, Reynaud's (involving feet, fingers, nose), HTN, leg abscess at age 23 who presented in transfer from [facility] for further evaluation numbness of the right neck and lower extremities. He has had back pain and episodes of decreased sensation and paresthesias previously, however none as severe as his current symptoms. MRI of the spine shows enhancinglesions in the cervical cord concerning for a demyelinating process. Discussed the possibility of multiple sclerosis with the patient. Precautions/Restrictions: fall Precautions Comments: Numbness in BLE Assessment: Pt seen today for PT evaluation. Patient presents with pain, impaired balance, decreased sensation and coordination, decreased strength, and decreased tolerance to activity, all of which affect the patient's current level of function. Patient was alert and oriented x4 at time of appointment and demonstrated understanding in all directions. Patient was able to perform all bed mobility independently. Xdu-ds-[id number] and gait were performed without assistance, but supervision is recommended as patient is experiencing decreased proprioception and and sensation that affects patient's ability to perform these tasks safely while independent. Patient describes his changes in proprioception and sensation as stepping on sponges, and reports N&T in BLE. Patient stated that he feels confident ambulating independently in familiar environments, but reports that he feels much less confident in new areas and feels that he will have to watch his feet as he ambulates constantly. Patient was provided a cane at this appointment and demonstrated proper use and understanding at time of appointment. At this point, no further inpatient PT needs have been identified, recommend home PT/OT to facilitate safe functional mobility in home environment. Will monitor chart until discharge. Staff Mobility Recommendations Supervision Discharge Recommendation: Home with assist; Home with home health 04/06/18 2587 Rehab Evaluation Document Type evaluation Total Evaluation Minutes, Physical Therapy 30 Patient Effort excellent Symptoms Noted During/After Treatment none General Information Patient Profile Review yes Patient/Family/Caregiver Comments/Observations It feels like stepping on sponges. My low back and legs hurt. My legs feeling numb. Tingle with touch. General Observations of Patient Pt in no immediate distress. alert and oriented x4. Calm and cooperative Pertinent History of Current Problem Per MD: 32 y.o. right handed man with a PMH of fibromyalgia, ADHD, low back pain, Reynaud's (involving feet, fingers, nose), HTN, leg abscess at age 23 who presented in transfer from [facility] for further evaluation numbness of the right neck and lower extremities. He has had back pain and episodes of decreased sensation and paresthesias previously, however none as severe as his current symptoms. MRI of the spine shows enhancing lesions in the cervical cord concerning for a demyelinating process. Discussed the possibility of multiple sclerosis with the patient. Precautions/Restrictions fall Precautions Comments Numbness in BLE Limitations/Impairments sensory Treatment Number PT 1 Living Environment Patient population Adult Living Environment Lives With alone Living Arrangements apartment Home Accessibility stairs to enter home;bed and bath on same level Number of Stairs to Enter Home 15 Number of Stairs Within Home 0 Transportation Available family or friend will provide Living Environment Comment Pt lives alone with dog in a second level apartment. Pt has 3 RAGHU with rails outside. Pt then has FOS and then an additional 5 stairs to then level of his apartment. Pt hasone step into his apartment from the hallway. Pt has a shower stall and will be adding grab bars and seat soon Functional Level Prior Ambulation 0-->independent Transferring 0-->independent Toileting 0-->independent Bathing 0-->independent Dressing 0-->independent Eating 0-->independent Communication 0-->understands/communicates without difficulty Swallowing 0-->swallows foods/liquids without difficulty Prior Functional Level Comment (Pt ind w/ ADL's prior. Mother lives by and able to ast now) Self-Care Dominant Hand right Equipment Currently Used at Home none Cognitive Assessment Interventions Orientation Status (Cognitive) oriented x 4 Pain Scale/Rating Pain Assessment Scale Numbers (Numeric Rating Pain Scale) Pain Level 6 Pain Assessment Numbers/Faces/Word Pain Body Location - Side Bilateral Pain Body Location lumbar spine Frequency constant Pain Radiation to leg, right;leg, left ROM (Range of Motion) Additional Documentation (BLE ROM WFL) MMT (Manual Muscle Testing) Additional Documentation (BLE WFL w/ significant fatigue) Mobility Assessment/Training Additional Documentation Bed Mobility Assessment/Treatment (Group);Gait Assessment/Treatment (Group);Transfer Assessment/Treatment (Group) Bed Mobility Assessment/Treatment Impairments (Bed Mobility) sensation decreased Uwcuej-dd-Xhb [place] (Bed Mobility) independent Saw-bm-Aejqvn [place] (Bed Mobility) independent Transfer Assessment/Treatment [place] (Sit-Stand Transfers) supervision required [place] (Stand-Sit Transfers) supervision required Impairments (Transfers) sensation decreased Maintain Weight Bearing Status (Transfers) able to maintain weight bearing status Gait Assessment/Treatment Impairments (Gait) balance impaired;sensation decreased;strength decreased [place] (Gait) supervision required Comment (Gait) Pt was provided cane at evaluation that he reported he would use. He was provided pteducation regarding cane use and demosntrated proper form and understanding of use Distance in Feet (Gait) RD Gait Pattern Analysis 2-point gait Deviations (Gait) other (see comments);stride length decreased (Pt was hesitant and overtly cautious in stepping) Maintain Weight Bearing Status (Gait) able to maintain weight bearing status General Sensory Assessment Sensory General Assessment other (see comments) (Pt has reduced sensation and proprioception BLE) Coping Verbalized Emotional State acceptance Observed Emotional State cooperative;calm;accepting Plan of Care Review Plan Of Care Reviewed With patient;other (see comments) (cousin was present with pt) Clinical Impression Therapy Frequency evaluation only Anticipated Discharge Disposition home with assist;home with home health SUZY Witt Cosigned by Pager: [phone] Ashlee Hendrickson, DPT, NCS Physical Therapy Rehabilitation Department 2017 PT Evaluation Code Rationale: ?? Diagnosis & Pertinent Co-Morbidities, personal factors, and present illness affecting Plan of Care: Patient Active Problem List Diagnosis Code ??? Left lumbar radiculopathy M54.16 ??? Right lumbar radiculopathy M54.16 ??? Lower back pain M54.5 ??? 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 Abnormal MRI, spinal cord R90.89 ??? Multiple sclerosis G35 ??? Abnormal brain MRI R90.89 Additional personal factors or co-morbidities that impact plan: ?? Total # of Factors: 0 1-2 3+ x ?? Examination of body system impairments, functional limitations and behaviors, and/or participation restrictions. Addressing 1-2 elements Addressing 3 + elements x Addressing 4 + elements ?? Clinical presentation: See assessment above. Stable/Uncomplicated Evolving/Fluctuating Symptoms Unstable/Unpredictable x ?? Clinical decision making of high complexity based on pt's functional performance as outlined in this evaluation. * Tennille Hawkins RN - 04/06/2018 2:28 PM EST OFFICE OF CARE MANAGEMENT Brick Maker Follow-up Note Patient plan of care discussed in multidisciplinary rounds and assessment for continuing care and discharge needs. LOS Hospital: 2 days INSURANCE: Payor: MEDICAID [place] / Plan: MEDICAID [place] PRIMARY CARE PLUS / Product Type: *No Product type* / SECONDARY INSURANCE: N/A DECISION MAKER: Full Code <no information> Patient continues to require hospitalization. Current Referral in place: [facility] Requested BRIAN Scruggs to visit patient as he has questions regarding disability. Brick Maker to follow with team and family to assist with discharge needs when patient ready for discharge. Tennille Hawkins RN Case Management pgr [phone] * Tennille Hawkins RN - 04/06/2018 2:20 PM EST The patient/termite control service representative has been provided a list of Home Health Agencies/ which serve their preferred geographic area. A letter describing our affiliations was reviewed with them and they were educated about their right to choose where referrals are placed. Patient requests referral to [facility] ([facility] [place] [facility]- is in [place], [place]) PHONE: [phone] FAX: [phone]. Expected date of discharge: 04/08. Referral routed to the Veteran Appeals Reviewer for matching with agency/vendor and to provide any required information. * Stephania Bhardwaj MD - 04/06/2018 7:16 AM EST Neurology Progress Note Patient Name: Erick Chacon Admit Date: 04/04/2018 Attending: Dr. York Patient ID: Erick Chacon is a 32 y.o. right handed man with a PMH of fibromyalgia, ADHD, low back pain, Reynaud's (involving feet, fingers, nose), HTN, leg abscess at age 23 who presented in transfer from [facility] for further evaluation of numbness of the right neck x 6 daysfollowed by numbness of lower extremities x 4 days. Interval History: -Pt reports he didn't sleep well o/n without his home valium 5mg (though it was available PRN). Complained of muscle cramping, didn't find baclofen 5mg TID to be effective -He reports a warm feeling on his inner thighs and difficulty with the end of urination (says he keeps pushing and can't tell when he is done urinating). Denies urgency or incontinence. -Last BM was yesterday -He feels his back pain and neck, RUE, and BL LE numbness have remained the same -Walking has improved know that he is familiar with his surroundings, though he still finds the sensation of his feet to feel odd -We reviewed the imaging of his brain and spine with him this morning and will go over MS basics this afternoon -Plan for XR guided LP this afternoon after failed attempt yesterday -He is concerned about his uncertain prognosis/future course with MS however he is appreciative that a diagnosis has been made. -Denies any family hx of MS, endorses fam hx of Lupus (grandmother and great grandmother) and thyroid issues (cousin) Medications: Scheduled Meds: ??? baclofen 10 mg Oral TID ??? methylPREDNISolone 1,000 mg Intravenous Daily ??? pantoprazole 40 mg Oral Daily ??? methylphenidate HCl 20 mg Oral TID AC ??? NIFEdipine 30 mg Oral Daily ??? sodium chloride 0.9 % 5 mL Intravenous BID ??? senna-docusate 2 tablet Oral BID Continuous Infusions: PRN Meds:.diazePAM, traMADol, sodium chloride 0.9 %, lidocaine, bisacodyl, magnesium hydroxide, acetaminophen Physical Exam: Vitals: Temp: [36.6 ??C (97.9 ??F)-37 ??C (98.6 ??F)] Heart Rate: [61-98] Resp: [18-20] BP: (114-145)/(62-92) SpO2: [95 %-98 %] Heart Rate from SPO2: [83 bpm-100 bpm] Gen: Patient of apparent stated age, well nourished, well developed, in NAD CV: RRR Resp: CTA BL Abd: Normoactive bowel sounds, soft, nontender, nondistended Ext: No edema, no bony deformity Neuro Exam: MS: A&Ox4, clear language without expressive or receptive aphasia, no dysarthria, follows commands CN: PERRLA, EOMI, visual joiner full No facial asymmetry Hearing intact to voice tongue protrudes midline with normal ROM SCM and trap strength intact Motor: Normal bulk and tone. ?UE: ?06/24 R, 06/24 L ?Arm abduction at shoulder ?5/5 R, 5/5 L ?Elbow extension ?5/5 R, 5/5 L ?Elbow flexion ?5/5 R, 5/5 L ?Knock Up Assembler ?5/5 R, 5/5 L Thumb flexion ?LE: ? 5/5 R, 5/5 L ?Hipflexion ?5/5 R, 5/5 L ?Knee extension ?5/5 R, 5/5 L ?Knee flexion ?5/5 R, 5/5 L ?Foot dorsiflexion ?5/5 R, 5/5 L ?Foot plantar flexion Sensation: Decreased sensation to sharp object on RUE, full right leg, and proximal left leg. Decreased vibratory sense of RLE. Decreased sensation of soft touch on R lateral anterior neck, RUE and RLE. Sensation of temperature intact throughout. Per admission: great toe proprioception is normal Reflexes: Not tested today, yesterday reflexes were brisker on RLE with toes - R down, L down Coordination: Finger to nose intact with no dysmetria Rapid alternating movements & Finger tapping smooth though asymmetric and slightly slower with R hand Heel-rueda intact BL Romberg with mild sway to right. No tremor at rest or with motion Gait: slow but steady, imbalance on heel to toe walking, Labs: Recent Results (from the past 24 hour(s)) TSH [place] Result Value Ref Range TSH 0.30 0.27 - 4.20 mlU/ML Vitamin B12 Result Value Ref Range Vitamin B-12 567 232 - 1,245 pg/mL Last 3 wbc, hgb, hct plt Recent Labs 04/05/18 013 WBC 8.1 HGB 14.3 HCT 42.7 PLATELET 189 Last 3 Lytes Recent Labs 04/05/18 013 NA 139 K 3.8 CL 103 CO2 27 BUN 16 CREATININE 0.76* Last 3 LFTs Recent Labs 04/05/18 013 AST 19 ALT 20 ALKPHOS 68 BILITOT 0.4 BILIDIR 0.1 Last Ca, Mg, Phos Recent Labs 04/05/18 013 CALCIUM 9.1 PHOS 4.3 Last 3 Coags Recent Labs 04/05/18 013 PT 13.5* INR 1.2 PTT 34 Last 3 TFT Recent Labs 04/05/18 1421 TSH 0.30 Diagnostic Tests and Imaging: MRI of the brain wwo contrast 04/05/18: FINDINGS: There is a linear T2 hyperintense lesion in the right centrum semiovale, with several other small subcortical and periventricular areas of T2 signal alteration. There is T2 signal abnormality at the superior aspect of the right brachium pontis, adjacent to the lloyd. The lesion at the right brachium pontis demonstrates mild enhancement. No enhancement elsewhere. There is no restricted diffusion. No mass effect or shift. IMPRESSION Findings suggestive of demyelination with enhancing and nonenhancing lesions. MRI total spine wwo contrast 04/04/18: IMPRESSION 1. ??Multifocal nonexpansile T2 signal alteration within the cervical and thoracic cord, with 3 enhancing lesions in the cervical cord as above. Differential diagnosis includes demyelinating disease such as multiple sclerosis. MRI with and without contrast suggested of the brain.. 2. ??Disc extrusion T8-T9 with moderate central canal narrowing and moderate RIGHT T8-T9 subarticular recess narrowing, question possible caudad migration posterior to the mid T9 vertebral body. Assessment: 32 yo M with PMH of HTN, fibromyalgia, muscle spasms, ADHD, chronic low back pain w/ L5-S1 radiculopathy and electrical shocks down spine and legs with bending over(gets epidural injections at pain clinic) who transferred from [facility] for further evaluation of numbness of the right neck x 6 days followed by numbness of lower extremities x 4 days + difficulty with balancing due to not being able to sense his foot position. Fam Hx of Lupus. He has experienced likelyMS hug related CP and episodes of decreased sensation and paresthesias in the past. MRI of the brain and spine show multiple enhancing lesions concerning for a demyelinating process. Plan for XR guided LP today. Lyme neg, B12 and TSH wnl. HELEN titer was positive in 2016. Pt meets clinical criteria for MS, will complete IV steroid tomorrow and start PO steroid taper afterwards with plan for OP neurology f/u. Ordering labs to plan for possible future immunotherapy. ?? Plan: # Enhancing lesions of brain and spinal cord with electrical-like pain and decreased sensation -Meets clinical dx of MS -Neuro check & vitals Q6hrs -IR guided lumbar puncture to be performed today -CSF studies: protein, glucose, culture, oligoclonal bands, MBP, IgG index, VZV, Lyme -Pt takes valium 2.5mg qAM and 2.5-5mg qhs for muscle spasms at home which he notes makes hime feelfatigued, we have discontinued the AM dose and made nightly dose PRN. Continue to wean. -Increase baclofen to 10mg TID for muscle spasms. 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 #HTN -Continue nifedipine 30 mg qd ?? #ADHD -Continue home Ritalin 20 mg TID # Prophylaxis -Lovenox 40mg SC daily - held for LP -RBOs -SCDs ?? # Supportive care -Regular diet -Tylenol PRN -Up with assistance ??-Code Status: FULL CODE Stephania Bhardwaj MD General Neurology [id number] 04/06/18 Associated attestation - Erick York III, MD - 04/06/2018 12:10 PM EST Neurology Attending Attestation I saw and evaluated Erick Chacon with Dr. Bhardwaj, resident programs assistant on Neurology. I have reviewed the medical records and the patient's history and I agree with the details as written. My physical examination confirms the findings. The assessment and plan were formulated in discussion with me and I agree with them as documented. Attending Summary/Plan MRi brain obtained which shows white matter lesions consistent with demyelination including enhancing R brachium pontis lesion. Based on clinical presentation and MRI scan findings he has clinically definite MS. Day 2 IV methylpredisolone Screening Labs for MS DMTs today MS education LP today Plan for D/C tomorrow with FUV in [facility] in about 2 weeks Erick York III, MD Pager: [phone] 12:06 PM 04/06/2018 * Guero Rowell T - 04/05/2018 3:02 PM EST Images from the original note were not included. PRE-PROCEDURE VIR NOTE: Referring Physician: Romel Issa PCP: Rodriguez Roberts MD Planned Procedure: Fluor guided LP Procedure Indication: Numbness and tingling with MR findings suggestive of demyelinating diease. Presenting Diagnosis/ Complaint: Erick Chacon is a 32 y.o. male with no significant PMHx presented to [facility] with numbness and tingling and back pain with MR findings suggestive of demyelinating disease. Consulted for Fluoro LP. Past Medical/Surgical History Patient Active Problem List Diagnosis Code ??? Left lumbar radiculopathy M54.16 ??? Right lumbar radiculopathy M54.16 ??? Lower back pain M54.5 ??? 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 Abnormal MRI, spinal cord R90.89 Past Medical History: Diagnosis Date ??? Anxiety ??? Headache(784.0) History reviewed. No pertinent surgical history. Medications: No current facility-administered medications on file prior to encounter. Current Outpatient Medications on File Prior to Encounter Medication Sig Dispense Refill ??? NIFEdipine (ADALAT CC) 30 mg Tablet Sustained Release Take 30 mg by mouth daily. ??? arginine 500 mg Tablet Take 1,000 mg by mouth daily. ??? b complex vitamins Capsule Take 1 capsule by mouth daily. ??? methylphenidate (RITALIN) 20 mg Tablet Take 20 mg by mouth 3 times daily. 0 ??? diaZEPam (VALIUM) 5 mg Tablet Take 5 mg by mouth 2 times daily as needed. ??? traMADol (ULTRAM) 50 mg Tablet Take 50 mg by mouth every 4 hours as needed for Pain. Allergies: Patient has no known allergies. Social History and Habits: Social History Socioeconomic History ??? Marital status: [...] Last attempt to quit: 04/25/2014 Years since quittin.9 ??? Smokeless tobacco: Never Used Substance and Sexual Activity ??? Alcohol use: Yes Comment: very rare ??? Drug use: No ??? Sexual activity: Not on file Comment: deferred Other Topics Concern ??? Not on file Social History Narrative ??? Not on file Significant Family History: Family History Problem Relation Age of Onset ??? Arthritis Mother ??? Hypertension Mother Physical Exam: Pending Labs: Lab Results Component Value Date WBC 8.1 04/05/2018 HCT 42.7 04/05/2018 PLATELET 189 04/05/2018 INR 1.2 04/05/2018 BUN 16 04/05/2018 CREATININE 0.76 (L) 04/05/2018 ALKPHOS 68 04/05/2018 AST 19 04/05/2018 ALBUMIN 4.0 04/05/2018 BILIDIR 0.1 04/05/2018 BILITOT 0.4 04/05/2018 ALT 20 04/05/2018 PROT 6.9 04/05/2018 Prior relevant imaging: Assessment/Plan: Access site: Lumbarspine Patient Position: Prone General anesthesia required: No. Local only Medications to discontinue (and days): Hold AM lovenox Labs: None GUERO ROWELL MD 04/05/18 * Mercedes Garza, PT - 04/05/2018 12:07 PM EST PT referral received. Thank you. Chart reviewed. Work up ongoing and pt planned to have LP today. Will follow up at a later date. Mercedes Garza, PT Pager [phone] * Soila Cali, OT - 04/05/2018 11:14 AM EST Occupational Therapy Note: Attempted to see Pt for OT evaluation. Pt in process of lumbar puncture. Plan to continue to monitor and perform OT evaluation as appropriate and as schedule permits. Soila Cali MS, OTR/L Occupational Therapist Pager: [phone] [facility]patient [facility] * Nova Resendiz E - 04/05/2018 6:48 AM EST Neurology Progress Note Patient Name: Erick Chacon Admit Date: 04/04/2018 Attending: Dr. York Patient ID: Erick Chacon is a 32 y.o. right handed man with a PMH of fibromyalgia, ADHD, low back pain, Reynaud's (involving feet, fingers, nose), HTN, leg abscess at age 23 who presented in transfer from [facility] for further evaluation of numbness of the right neck x 6 daysfollowed by numbness of lower extremities x 4 days. Interval History: -No acute events overnight, vitals stable -This morning denies new or worsening symptoms -Pending an MRI Brain and lumbar puncture Medications: Scheduled Meds: ??? methylphenidate HCl 20 mg Oral TID AC ??? NIFEdipine 30 mg Oral Daily ??? sodium chloride 0.9 % 5 mL Intravenous BID ??? enoxaparin 40 mg Subcutaneous Nightly ??? senna-docusate 2 tablet Oral BID Continuous Infusions: PRN Meds:.diazePAM, traMADol, sodium chloride 0.9 %, lidocaine, bisacodyl, magnesium hydroxide, acetaminophen Physical Exam: Vitals: Temp: [36.7 ??C (98.1 ??F)] Heart Rate: -- Resp: [18] BP: (111-148)/(65-97) SpO2: [95 %-100 %] Heart Rate from SPO2: [58 bpm-80 bpm] Gen: Patient of apparent stated age, well nourished, well developed, in NAD Neck: Supple, no meningismus, no occipital tenderness, no L'hermitte sign CV: S1S2, RRR, no murmur Resp: CTA BL Abd: Normoactive bowel sounds, soft, nontender, nondistended Ext: No edema, no bony deformity Neuro Exam: MS: A&Ox4, clear language without expressive or receptive aphasia, able to repeat and name objects, no dysarthria, follows commands CN: PERRL, EOMI, visual joiner full Facial sensation intact, no facial asymmetry Hearing intact to finger rub BL Palate elevates symmetrically, tongue protrudes midline SCM and trap strength intact Motor: Normal bulk and tone. ?UE: ?5/5 R, 5/5 L ?Arm abduction at shoulder ?5/5 R, 5/5 L ?Elbow extension ?5/5 R, 5/5 L ?Elbow flexion ?5/5 R, 5/5 L ?Knock Up Assembler ?5/5 R, 5/5 L Thumb flexion ?LE: ? 5/5 R, 5/5 L ?Hipflexion ?5/5 R, 5/5 L ?Knee extension ?5/5 R, 06/24 L ?Knee flexion ?5/5 R, 06/24 L ?Foot dorsiflexion ?5/5 R, 06/24 L ?Foot plantar flexion Sensation: Decreased sensation to sharp object below T10 anteriorly, L4 posteriorly. Decreased sensation in RUE compared to LUE. Intact distal temperature and vibration; great toe proprioception is normal Reflexes: Toes - R down, L down Coordination: Finger to nose intact with no dysmetria Rapid alternating movements & finger tapping smooth and symmetric Heel-rueda intact BL Foot tapping smooth and symmetrical No tremor at rest or with motion Gait: slow, stable and steady on admission Labs: No results found for this or any previous visit (from the past 24 hour(s)). Diagnostic Tests and Imaging: MRI total spine wwo contrast 04/04/18: IMPRESSION 1. ??Multifocal nonexpansile T2 signal alteration within the cervical and thoracic cord, with 3 enhancing lesions in the cervical cord as above. Differential diagnosis includes demyelinating disease such as multiple sclerosis. MRI with and without contrast suggested of the brain.. 2. ??Disc extrusion T8-T9 with moderate central canal narrowing and moderate RIGHT T8-T9 subarticular recess narrowing, question possible caudad migration posterior to the mid T9 vertebral body. Assessment: 32 y.o. right handed man with a PMH of fibromyalgia, ADHD, low back pain, Reynaud's (involving feet, fingers, nose), HTN, leg abscess at age 23 who presented in transfer from [facility] for further evaluation numbness of the right neck and lower extremities. He has had back pain and episodes of decreased sensation and paresthesias previously, however none as severe as his current symptoms. MRI of the spine shows enhancing lesions in the cervical cord concerning for ademyelinating process. Discussed the possibility of multiple sclerosis with the patient. Plan for further workup with MRI Brain and lumbar puncture. ?? 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 #HTN -Continue nifedipine 30 mg qd ?? # Home medications -Continue Ritalin 20 mg TID -Continue Tramadol 50 mg q4h PRN -Continue Valium 5 mg BID PRN ?? # Prophylaxis -Lovenox 40mg SC daily -RBOs -SCDs ?? # Supportive care -Regular diet -Tylenol PRN -Up with assistance ?? Code Status: FULL CODE Nova Resendiz MD Neurology Resident, PGY-3 General Neurology #[id number] 04/05/18 Associated attestation - Erick York III, MD - 04/05/2018 11:25 AM EST Neurology Attending Attestation I saw and evaluated Erickmichele Chacon with Dr. Resendiz, neurology resident. I have reviewed the medical records and the patient's history and I agree with the details as written. My physical examination confirms the findings. The assessment and plan were formulated in discussion with me and I agree with them as documented. Attending Summary/Plan Please see my attestation from H&P for summary and plan. Erick York III, MD Pager: [phone] 11:25 AM 04/05/2018 documented in this encounter H&P Notes * Nova Resendiz - 04/04/2018 5:41 PM EST General Neurology Admission History and Physical Patient name: Erick Chacon Date of : 1985 PCP: Rodriguez Roberts MD CC: numbness of the right neck x 6 days followed by numbness of lower extremities x 4 days HPI: Erick Chacon is a 32 y.o. right handed man with a PMH of fibromyalgia, ADHD, low back pain, Reynaud's (involving feet, fingers, nose), HTN, leg abscess at age 23 who presented in transfer from [facility] for further evaluation numbness of the right neck and lower extremities. His symptoms first started 6 days ago with numbness in the right neck that progressed to also involve the right scapular area across to the left side. This continued without improvement, and then 4 days ago he noted bilateral lower extremity intermittent paresthesias and numbness. These symptoms were ongoing until 2 days ago, at which point he went to work and began to experience worsening numbness to the point he could barely feel his feet. He had difficulty with balancing due to not being able to sense his foot position. When he walks he feels like he is stepping on a small, soft sponge ball. On review of symptoms he has not had weakness, vision changes (no diplopia, no blurring of vision),dysarthria, difficulty speaking, dizziness. No bowel or bladder incontinence. Able to urinate. Had straining/constipation with bowel movement in the ED but was able to pass stool. While in the ED he was seen by Neurosurgery as there were earlier concerns for cauda equina syndrome per OSH; exam not consistent with this entity and no surgical indication. He underwent an MRI of the total spine which demonstrated enhancing lesions in the cervical cord and T2 signal alteration inthe cervical and thoracic cords. Regarding previous history, he is followed in Pain Clinic for chronic low back pain that started 4 years ago, adiating down the legs treated with spinal injections that have provided good relief. He believes his back pain started after an injury at work involving bending forward. He was found to have L5-S1 disc herniation with mild impingement of the R S1 nerve root. He had seen neurology in 2014 for nerve conduction study. Per note from 10/2014 he initially developed electric shock sensation of the right leg from buttocks down a/w calf numbness, worse with sitting (July 2013). In September 2013 he was diagnosed w/ L5-S1 foraminal stenosis treated with epidural injections with worsening of the pain instead of improvement. A repeat MRI in September 2014 showed R paracentral T8 stenosis w/ cord impingement. At the neurology visit in 10/2014 he had left foot pain, worse in the morning with awakening, right leg radicular pain w/ electric shock radiating from origin in buttock, sensations worse with bending over. Exam was notable for numbness on the right, distal > proximal, exacerbated by crossing legs. No bowel or bladder symptoms at the time. Nerve conduction studies were normal, EMG of the R TA, gastrocnemius, VL, L TA and gastroc were normal. One year ago he had an ED visit for thoracic back pain and chest pain with numbness in his right arm. He states that cardiac workup was unremarkable, and he was told symtpoms were likely related to heartburn. At follow up visit he was still having intermittent chest pains and back spasms with numbness down the right flank. He is also followed by rheumatology for fibromyalgia. He was initially referred for thoracic/lumbarpain, hip pain, muscle spasms. He had a rash which was biopsied and pathology showed ectatic blood vessels, no vasculitis. Family history: lupus (maternal grandmother and great grandmother), cardiovascular disease/VA (grandfather, uncles), Rarely smokes cigarettes, very rare ETOH use. No illicit use. 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 Current Medications: Scheduled Meds: Continuous Infusions: PRN Meds:. Past Medical & Surgical History: Past Medical History: Diagnosis Date ??? Anxiety ??? Headache(784.0) History reviewed. No pertinent surgical history. Home Medications: No current facility-administered medications on file prior to encounter. Current Outpatient Medications on File Prior to Encounter Medication Sig Dispense Refill ??? NIFEdipine (ADALAT CC) 30 mg Tablet Sustained Release Take 30 mg by mouth daily. ??? arginine 500 mg Tablet Take 1,000 mg by mouth daily. ??? b complex vitamins Capsule Take 1 capsule by mouth daily. ??? methylphenidate (RITALIN) 20 mg Tablet Take 20 mg by mouth 3 times daily. 0 ??? diaZEPam (VALIUM) 5 mg Tablet Take 5 mg by mouth 2 times daily as needed. ??? [DISCONTINUED] predniSONE (DELTASONE) 20 mg Tablet TAKE TWO TABLETS BY MOUTH EVERY DAY 0 ??? [DISCONTINUED] RX ADULT COMPOUNDED MEDICATION Low Dose Naltrexone 1.5mg Capsules. Use microcrystalline cellulose as filler. Recommend 1 capsule each day for one week, then increase to 2 capsules a day for one week, then increase to 3 capsules a day. 90 each 3 ??? traMADol (ULTRAM) 50 mg Tablet Take 50 mg by mouth every 4 hours as needed for Pain. Allergy: No Known Allergies Family History: Family History Problem Relation Age of Onset ??? Arthritis Mother ??? 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 Marital status: [...] Last attempt to quit: 04/25/2014 Years since quittin.9 ??? Smokeless tobacco: Never Used Substance and Sexual Activity ??? Alcohol use: Yes Comment: very rare ??? Drug use: No ??? Sexual activity: Not on file Comment: deferred Other Topics Concern ??? Not on file Social History Narrative ??? Not on file Review of systems: Constitutional: No fevers or [...] See HPI Psych: No depression, normal sleep Physical Exam: Vitals: Temp: -- Heart Rate: -- Resp: -- BP: (111-138)/(65-92) SpO2: [95 %-100 %] Heart Rate from SPO2: [58 bpm-80 bpm] Gen: Patient of apparent stated age, well nourished, well developed, in NAD Neck: Supple, no meningismus, no occipital tenderness, no L'hermitte sign CV: S1S2, RRR, no murmur Resp: CTA BL Abd: Normoactive bowel sounds, soft, nontender, nondistended Ext: No edema, no bony deformity Neuro Exam: MS: A&Ox4, clear language without expressive or receptive aphasia, able to repeat and name objects, no dysarthria, follows commands CN: PERRL, EOMI, visual joiner full Facial sensation intact, no facial asymmetry Hearing intact to finger rub BL Palate elevates symmetrically, tongue protrudes midline SCM and trap strength intact Motor: Normal bulk and tone. UE: 5/5 R, 5/5 L Arm abduction at shoulder 5/5 R, 5/5 L Elbow extension 5/5 R, 5/5 L Elbow flexion 5/5 R, 5/5 L Wrist extension 5/5 R, 5/5 L Wrist flexion 5/5 R, 5/5 L Wrist pronation 5/5 R, 5/5 L Wrist supination 5/5 R, 5/5 L Finger extension 5/5 R, 5/5 L Finger flexion 5/5 R, 5/5 L Knock Up Assembler 5/5 R, 5/5 L Thumb flexion LE: 5/5 R, 5/5 L Hip flexion 5/5 R, 5/5 L Knee extension 5/5 R, 5/5 L Knee flexion 5/5 R, 5/5 L Foot inversion 5/5 R, 5/5 L Foot eversion 5/5 R, 5/5 L Toe flexion 5/5 R, 5/5 L Great toe extension 5/5 R, 5/5 L Great toe flexion 5/5 R, 5/5 L Foot dorsiflexion 5/5 R, 5/5 L Foot plantar flexion Sensation: Decreased sensation to sharp object below T10 anteriorly, L4 posteriorly. Decreased sensation in RUE compared to LUE. Intact distal temperature and vibration Reflexes: DTRs 2+ R, 2+ L Biceps 2+ R, 2+ L Brachioradialis 2+ R, 2+ L Triceps 2+ R, 2+ L Patellar 2+ R, 2+ L Achilles tendon Toes - R down, L down Coordination: Finger to nose intact with no dysmetria Rapid alternating movements & finger tapping smooth and symmetric Heel-rueda intact BL Foot tapping smooth and symmetrical No tremor at rest or with motion Gait: slow, stable and steady Labs: No results found for this or any previous visit (from the past 24 hour(s)). Diagnostic Tests and Imaging: MRI total spine wwo contrast 04/04/18: IMPRESSION 1. Multifocal nonexpansile T2 signal alteration [...] posterior to the mid T9 vertebral body. Assessment and Plan: Erick Chacon is a 32 y.o. right handed man with a PMH of fibromyalgia, ADHD, low back pain, Reynaud's (involving feet, fingers, nose), HTN, leg abscess at age 23 who presented in transfer from [facility] for further evaluation numbness of the right neck and lower extremities. He has had back pain and episodes of decreased sensation and paresthesias previously, however none as severe as his current symptoms. MRI of the spine shows enhancing lesions in the cervical cord concerning for a demyelinating process. Discussed the possibility of multiple sclerosis withthe patient. He is being admitted for further workup with MRI Brain and lumbar puncture. 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 Deleon via phone. Nova Resendiz MD Neurology Resident, PGY-3 General Neurology #[id number] 04/04/18 Associated attestation - Erick York III, MD - 04/05/2018 11:24 AM EST Neurology Attending Attestation I saw and evaluated Erick Chacon with Dr. Resendiz, neurology resident. I have reviewed the medical records and the patient's history and I agree with the details as written. My physical examination confirms the findings. The assessment and plan were formulated in discussion with me and I agree with them as documented. Attending Summary/Plan 32 y.o. man with Several days of progressive numbness in the legs and R arm and neck numbness. My examination is notable for decreased sensation in RUE and RLE > LLE, mildly increased reflexes on the R > L and decreased finger tapping on the R. MRI C and T spine showing several T2 hyperintense intramedullary lesions in the cervical spine - some of which have contrast enhancement. Clinical presentation and MRI scan findings most concerning for demyelination - MS. MRI brain wwo contrast LP for CSF diagnostic testing - including oligoclonal bands and IgG index Starting Solumedrol 1000mg daily x 3 days today Currently on Valium 2.5mg AM and 5mgPM for spasms - will start baclofen 5mg three times daily and then gradually taper off of Valium. Erick York III, MD Pager: [phone] 11:10 AM 04/05/2018 documented in this encounter Procedure Notes * Evelyn Morrison MD - 04/05/2018 12:03 PM ESTAssociated Order(s): DIAGNOSTIC LUMBAR PUNCTURE Procedure(s): LUMBAR PUNCTURE; LUMBAR PUNCTURE Pre-Procedure Diagnose(s): Multiple sclerosis Post-Procedure Diagnose(s): Multiple sclerosis Neurology Procedure Note Date: 04/05/2018 Patient: Erick Chacon : 1985 Procedure: lumbar puncture (diagnostic) Indications: Work up for multiple sclerosis Risk and benefits were explained to the patient and consent was obtained. Patient consented for the CSF banking study; [facility] # [id number] - 3cc [facility] spinal [facility] and stored for this purpose. Time out was preformed. Past Medical History: Diagnosis Date ??? Anxiety ??? Headache(784.0) Current Facility-Administered Medications Medication Dose Route Frequency Provider Last Rate Last Dose ??? gadoterate meglumine (DOTAREM) 0.5 mmol/mL (376.9 mg/mL) injection 0-100 mL 0-100 mL Intravenous Once PRN Jovanny Muller MD ??? methylPREDNISolone sodium succinate (PF) (SOLU-Medrol) 1,000 mg in sodium chloride 0.9% 108 mL 1,000 mg Intravenous Daily Georgette Monae PA ??? pantoprazole (PROTONIX) tablet 40 mg 40 mg Oral Daily Georgette Monae PA ??? baclofen (LIORESAL) tablet 5 mg 5 mg Oral TID Evelyn Morrison MD ??? diazePAM (VALIUM) tablet 5 mg 5 mg Oral Nightly PRN Evelyn Morrison MD ??? lidocaine (XYLOCAINE) 10 mg/mL (1 %) injection 200 mg 20 mL Subcutaneous Once Mckinley Hoffman MD ??? methylphenidate HCl (RITALIN) tablet 20 mg 20 mg Oral TID AC Nova Resendiz MD 20 mg at 04/05/18 0830 ??? NIFEdipine (ADALAT CC) CR tablet 30 mg 30 mg Oral Daily Nova Resendiz MD 30 mg at 04/05/18 0837 ??? traMADol (ULTRAM) tablet 50 mg 50 mg Oral Q4H PRN Nvoa Resendiz MD 50 mg at 04/05/18 0841 ??? sodium chloride 0.9 % flush 5 mL 5 mL Intravenous BID Nova Resendiz MD 5 mL at 04/05/18 0900 ??? sodium chloride 0.9 % flush 5-20 mL 5-20 mL Intravenous Q1 Min PRN Nova Resendiz MD ??? lidocaine (XYLOCAINE) 10 mg/mL (1 %) injection 3 mg 0.3 mL Subcutaneous Once PRN Nova Resendiz MD ??? enoxaparin (LOVENOX) injection 40 mg 40 mg Subcutaneous Nightly Nova Resendiz MD ??? senna-docusate (PERICOLACE) 8.6-50 mg per tablet 2 tablet 2 tablet Oral BID Nova Resendiz MD ??? bisacodyl (DULCOLAX) suppository 10 mg 10 mg Rectal Daily PRN Nova Resendiz MD ??? magnesium hydroxide (MILK OF MAGNESIA) oral suspension 10 mL 10 mL Oral Daily PRN Nova Resendiz MD ??? acetaminophen (TYLENOL) tablet 650 mg 650 mg Oral Q6H PRN Nova Resendiz MD No Known Allergies Patient was positioned on his side in a position. The skin was prepped with ChloraPrep (2% chlorhexidine solution/70% isopropyl alcohol) and draped in sterile fashion. 8 cc lidocaine were used to numb the skin and insertion site. A 22-g 3.5 Sprotte spinal needle was inserted, using an introducer into the space between L4 and L5 . A second attempt was made in the sitting up position in the space between L3 and L4. Two attempt was made. 0 CSF was obtained due to patient complicated anatomy. He will be sent for a lumbar puncture under flouroscopy A total of 0 cc spinal fluid was removed. Patient tolerated the procedure well. There were no immediate complications observed. Blood Loss <1cc (KEEP IF CSF DATABANK SAMPLE IS COLLECTED) The patient was approached by Dr. Hoffman about participating in the CSF Biospecimen and Data Bank, a single institution study at [facility] with Drs. Erick Flowers and Bhavin Aguero as lead investigators. After meeting inclusion and exclusion criteria, subjects will provide witnessed informed consent. All questions from the patient regarding this study have been answered. The consent form has [facility]-approval date of 10/03/2014. All study-related procedures were completed after signing the ICF. A copy of the ICF has been provided to the patient. The CSF sample was not collected and properly stored and sent to the CSF banking Lab because we could not obtain CSF. Patient will be sent for XR lumbar puncture instead. Evelyn Morrison MD Neurology 04/05/2018 documented in this encounter ED Notes * Babs Ribeiro MD - 04/04/2018 11:49 PM EST Patient Name: Erick Chacon Patient Age: 32 y.o. Birthdate: 1985 Admit date: 04/04/2018 Attending Physician: Amos Deleon MD ED ATTENDING FOLLOW-UP NOTE: Time of transfer of care: 16:00 Care transferred from: Latasha Ochoa Dr. Paradis Condition at time of transfer: fair Clinical Summary: 32 y.o. old male in the process of being evaluated for abnormal neurologic exam. Please see Dr. Pagan's notes for their evaluation, assessment and plan. Briefly, patient is transferred from outside hospital for evaluation of 2 weeks of intermittent back pain now with right-sided neck pain, numbness to the thighs bilaterally. Subsequent ED Course: MRI was initially obtained to rule out cauda equina syndrome. Neurosurgery evaluated the patient and felt that there was no evidence of cauda equina syndrome based on his exam or MRI. However, there were abnormal lesions noted to his spine as outlined below: MRI Total Spine wwo Contrast Final Result 1. Multifocal nonexpansile T2 signal alteration within [...] posterior to the mid T9 vertebral body. Preliminary report signed by: Guero Rowell MD at 04/04/2018 3:26 PM I have personally reviewed the image(s) and the residents interpretation and agree with the findings, John Hartman at 04/04/2018 3:44 PM Thank you for letting us participate in the care of this patient. For questions regarding this report, please contact the number below. Brain wwo Contrast (Generic) (Results Pending) As these lesions combined with the patient's abnormal neurologic exam raise concern for possible demyelinating disorder, neurology was consulted. They will admit the patient for further evaluation. Final Assessment: Numbness, possible demyelinating disease Final Plan: Admit to neurology Babs Ribeiro MD 04/04/18 1638 * Bettye Todd RN - 04/04/2018 7:12 PM EST Neuro at bedside * Bettye Todd RN - 04/04/2018 4:51 PM EST Neurosurgery team at bedside * Bettye Todd RN - 04/04/2018 2:06 PM EST Awaiting MRI results, family at bedside, pt aware of plans vss on monitors no other complaints at this time * Guero Pagan MD - 04/04/2018 3:50 AM EST Chief Complaint Patient presents with ??? Hospital Transfer ??? Back Pain r/o cauda equina HPI 32-year-old male, history of chronic back issues, who is transferred from outside hospital with concern for possible cord compression. The patient states he was in his usual state of health, which involved some intermittent back pain until approximately 2 weeks ago when he was at work and developedinterscapular shoulder pain. This resolved. Approximately 5 days ago he noted right-sided neck tenderness and numbness tingling. This gradually progressed down his body to bilateral legs. He became more concerned over the last 2 days when he developed a saddle and genital anesthesia. He has not noted any urinary retention. He has still been able to ambulate. No fevers chills, history of IV drug abuse, history of cancer. No Known Allergies Review of Systems Constitutional: Negative for activity change and appetite change. Eyes: Negative for visual disturbance. Respiratory: Negative for wheezing. Cardiovascular: Negative for palpitations. Gastrointestinal: Negative for abdominal pain. Endocrine: Negative for polyuria. Genitourinary: Negative for difficulty urinating. Musculoskeletal: Positive for back pain. Skin: Negative for color change and pallor. Neurological: Negative for dizziness and facial asymmetry. Hematological: Does not bruise/bleed easily. Psychiatric/Behavioral: Negative for agitation, behavioral problems and decreased concentration. Physical Exam Constitutional: He is oriented to person, place, and time. He appears well- developed and well-nourished. HENT: Head: Normocephalic and atraumatic. Eyes: Pupils are equal, round, and reactive to light. Neck: Normal range of motion. Cardiovascular: Normal rate, regular rhythm, normal heart sounds and intact distal pulses. Pulmonary/Chest: Effort normal and breath sounds normal. Abdominal: Soft. Bowel sounds are normal. Genitourinary: Rectum normal. Genitourinary Comments: Reported saddle anesthesia with intact rectal tone Musculoskeletal: Normal range of motion. He exhibits no edema or deformity. Neurological: He is alert and oriented to person, place, and time. He displays normal reflexes. A sensory deficit (Reported decreased sensation to light touch in perineum and diffuse lower extremities to a level of T 10) is present. No cranial nerve deficit. He exhibits normal muscle tone. Coordination normal. Strength is 5 out of 5 proximal and distal in bilateral upper and lower extremities Skin: Skin is warm and dry. Capillary refill takes less than 2 seconds. No erythema. Psychiatric: He has a normal mood and affect. His behavior is normal. Thought content normal. Nursing note and vitals reviewed. Procedures MDM ED Course: Patient transferred with concern for possible cauda equina or other cord compression. He does have some concerning findings specifically his sensory changes in the lower extremities. However it is unusual that he has normal strength, normal rectal tone, and a post void residual of 18 cc. 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 We will continue to monitor him neurologically. Disposition will be based on results of MRI. Guero Pagan MD 04/04/18 0355 * Radha Soto RN - 04/04/2018 1:53 AM EST Patient ambulated independently to bathroom to urinate. PVR 18ml. * Radha Soto RN - 04/04/2018 1:[address] Pagan performing rectal exam, tone decreased. documented in this encounter Miscellaneous Notes * Plan of Care - Henry Alvarado RN - 04/06/2018 2:59 AM EST Problem: Patient Care Overview Goal: Plan of Care Review Outcome: Ongoing (Interventions Implemented as Appropriate) 04/05/182121 Coping/Psychosocial Plan Of Care Reviewed With patient ?? OUTCOME SUMMARY: ?? Patient rating pain 6/10, PRN tramadol given with little effect. Pt still able to sleep between care. Numbness in bilateral legs and right arm persists. Pt independent in room otherwise. ?? PLAN MOVING FORWARD: ?? Fluoroscopy guided LP ?? INDIVIDUALIZED FALL PREVENTION INTERVENTIONS: ?? Patient-specific fall risk factors per assessment: [current deficits]: BLE numbness ?? Assistance [level of assistance required for transfers and ambulation]: none ?? Supervision [direct monitoring required during toileting and ADLs]: none ?? Surveillance [continuous indirect monitoring]: Purposeful rounding ?? Patient-specific fall prevention interventions for sensory deficits provided, if applicable: [X] Yes * Plan of Care - Rima Panchal RN - 04/05/2018 6:55 PM EST Problem: Patient Care Overview Goal: Plan of Care Review Outcome: Ongoing (Interventions Implemented as Appropriate) 04/05/18 1400 Coping/Psychosocial Plan Of Care Reviewed With patient OUTCOME EVALUATION NOTE: OUTCOME SUMMARY: Pt independent in room. Pt went for MRI PLAN MOVING FORWARD: Fluoroscopy guided LP INDIVIDUALIZED FALL PREVENTION INTERVENTIONS: Patient-specific fall risk factors per assessment: [current deficits]: none Assistance [level of assistance required for transfers and ambulation]: none Supervision [direct monitoring required during toileting and ADLs]: none Surveillance [continuous indirect monitoring]: Purposeful rounding Patient-specific fall prevention interventions for sensory deficits provided, if applicable: [X] Yes CPG GOAL OUTCOME EVALUATION: Goal: Fall Prevention-Safe Patient Handling Outcome: Ongoing (Interventions Implemented as Appropriate) 04/04/18221004/05/1884004/05/18 [facility] Fall Risk History of Falling -- 0 -- Secondary Diagnosis -- 15 -- Ambulatory Aids -- 0 -- Intravenous Therapy/Heparin/Saline Lock -- 20 -- Gait/Transferring -- 0 -- Mental Status -- 0 -- Score -- 35 -- OTHER Lucas Fall Risk -- Med -- Restraint Interventions Safety Promotion/Fall Prevention activity supervised -- -- Positioning Body Position independent -- -- Activity Activity Type -- -- activity adjusted per tolerance Activity Assistance Provided -- -- independent Goal: Infection Control 04/04/18221004/05/18840 Safety Interventions Isolation Precautions standard precautions maintained -- Infection Prevention rest/sleep promoted -- Coping Strategies Supportive Measures -- active listening utilized Goal: Discharge Needs Assessment 04/05/181851 Discharge Needs Assessment Concerns To Be Addressed no discharge needs identified Readmission Within The Last 30 Days no previous admission in last 30 days Discharge Disposition still a patient Activity/Self Care Review of Systems Equipment Currently Used at Home none Living Environment Transportation Available family or friend will provide Goal: Interdisciplinary Rounds/Family Conf Outcome: Ongoing (Interventions Implemented as Appropriate) 04/05/181851 Interdisciplinary Rounds/Family Conf Participants family;nursing;patient;physician * Plan of Care - Soila Cali OT - 04/05/2018 4:27 PM EST Occupational Therapy Evaluation Pertinent History of Current Problem: Per MD: 32 y.o. right handed man with a PMH of fibromyalgia, ADHD, low back pain, Reynaud's (involving feet, fingers, nose), HTN, leg abscess at age 23 who presented in transfer from [facility] for further evaluation numbness of the right neck and lower extremities. He has had back pain and episodes of decreased sensation and paresthesias previously, however none as severe as his current symptoms. MRI of the spine shows enhancinglesions in the cervical cord concerning for a demyelinating process. Discussed the possibility of multiple sclerosis with the patient. Precautions/Restrictions: other (see comments)(at risk for falls ) Precautions Comments: Full code, up with assistance Assessment: Pt has been seen for occupational therapy evaluation, please refer to associated flowsheet data listed below for details. Erick Chacon presents with the following performance skill deficits and client factors: decreased sensation, decrease in transfers/mobility and increased pain.These performance deficits have led to activity limitations and participation restrictions in the following areas of occupation: dressing, bathing, grooming, toileting, mobility, transferring, rest/sleep, home management, roles/routines, leisure, driving, community mobility, and social participation. Pt seen for OT services. Pt presented awake in bed agreeable. Pt reporting decreased sensation inRUE, from upper trap along ulnar nerve path to forearm. Pt noted to require occasional supervision for provision of verbal cues for safety 2/2 decreased sensation in BLE. Pt noted with slight decrease in balance initially, which improved during further mobility. At this time Pt does not have any need for skilled inpatient OT services. Plan to monitor Pt during stay at [facility]. Anticipate that pt will return home with assistance as needed once medically ready. Do not anticipate further OT needs while hospitalized. Staff Recommendations: Encourage OOB activity and participation in all self care tasks Anticipated Discharge Disposition: home with assist Pager: [phone] Soila Cali, OT 04/05/2018 Occupational Therapy Rehabilitation Department 04/05/18 1400 Rehab Evaluation Document Type evaluation Total Evaluation Minutes, Occupational Therapy 30 (mod complexity evaluation ) Patient Effort excellent Symptoms Noted During/After Treatment none General Information Patient Profile Review yes Patient/Family/Caregiver Comments/Observations It feels like there are balls at the bottom of my feet. I need to be aware of where I put my foot. General Observations of Patient Pt supine in bed pre and post session with all needs within reach and RN aware Pertinent History of Current Problem Per MD: 32 y.o. right handed man with a PMH of fibromyalgia, ADHD, low back pain, Reynaud's (involving feet, fingers, nose), HTN, leg abscess at age 23 who presented in transfer from [facility] for further evaluation numbness of the right neck and lower extremities. He has had back pain and episodes of decreased sensation and paresthesias previously, however none as severe as his current symptoms. MRI of the spine shows enhancing lesions in the cervical cord concerning for a demyelinating process. Discussed the possibility of multiple sclerosis with the patient. Hearing Precautions/Limitations WNL Precautions/Restrictions other (see comments) (at risk for falls ) Precautions Comments Full code, up with assistance Limitations/Impairments sensory Treatment Number OT 1 Living Environment Patient population Adult Living Environment Living Environment Comment Pt lives alone with dog in a second level apartment. Pt has 3 RAGHU with rails outside. Pt then has FOS and then an additional 5 stairs to then level of his apartment. Pt hasone step into his apartment from the hallway. Pt has a shower stall. Pt sleeps in regular bed. Functional Level Prior Prior Functional Level Comment Pt independent with BADL routines. 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 Pt reported he was only able to tolerate approximately 3-5 hours recently. Pt does not use any adaptive devices. 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 Pt's mother lives close to Pt and Pt reports is supportive. Self-Care Dominant Hand right Vital Signs Heart Rate 98 SpO2 98 % O2 Device RA Vision Assessment/Intervention Visual Impairment/Limitations WFL Cognitive Assessment Interventions Behavior/Mood Observations (Cognitive) WNL/WFL;cooperative;alert Orientation Status (Cognitive) oriented x 4 Attention (Cognitive) WNL/WFL Follows Commands/Answers Questions (Cognitive) 100% of the time;able to follow multi-step instructions Pain Scale/Rating Pain Assessment Scale Numbers (Numeric Rating Pain Scale) Pain Level 7 Pain Assessment Numbers/Faces/Word Pain Body Location - Side Bilateral Pain Body Location - Orientation lower Pain Body Location back ROM (Range of Motion) Additional Documentation General Assessment (Group) General Range of Motion Detail BUE WFL for ADL routines MMT (Manual Muscle Testing) Additional Documentation General Assessment (Group) General Manual Muscle Testing Assessment Detail BUE WFL for ADL routines Bed Mobility Assessment/Treatment Assistive Device (Bed Mobility) (HOB slighlty elevated ) [id number] [place] (Bed Mobility) conditional independence [id number] [place] (Bed Mobility) conditional independence Impairments (Bed Mobility) sensation decreased Comment (Bed Mobility) Pt did not require assistance for bed mobility for supine<>sit and sit<>supine. Pt able to sit EOB unsupported Transfer Assessment/Treatment [place] (Sit-Stand Transfers) supervision required;conditional independence [place] (Stand-Sit Transfers) supervision required;conditional independence Impairments (Transfers) sensation decreased Comment (Transfers) Pt required supervision for initial transfer 2/2 decreased sensation in BLEs. Afterwards Pt conditional independent for slight increase in time to perform transfers. Gait Assessment/Treatment [place] (Gait) supervision required;conditional independence;verbal cues required Assistive Device (Gait) other (see comments) (none ) Impairments (Gait) strength decreased;balance impaired Comment (Gait) Pt initially required supervision for safety and provision of verbal cues for sequencing due to slight decrease in balance 2/2 decreased sensation in BLEs. Pt noted with improved ability to coordinate during ambulation requiring no assistance from therapist ADL Assessment/Intervention Additional Documentation Lower Body Dressing Assessment/Training (Group);Grooming Assessment/Training (Group) Lower Body Dressing Assessment/Training Position (LB Dressing) standing;sitting [place] Level (LB Dressing) supervision required;verbal cues required Impairments (LB Dressing) sensation decreased Comment (LB Dressing) Pt provided with VC for safety to sit to perform LB dressing for pants, Pt initially threading pants in standing. Pt educated on benefits of sitting to thread due to decreased sensation and Pt was agreeable. Grooming Assessment/Training Position (Grooming) standing [place] Level (Grooming) independent Impairments (Grooming) sensation decreased Comment (Grooming) Pt able to brush teeth in standing without assistance Sensory Assessment/Intervention Additional Documentation General Sensory Assessment (Group) General Sensory Assessment Sensory General Assessment other (see comments) (Pt reported decreased sensation in RUE; dull ) Plan of Care Review Plan Of Care Reviewed With patient Clinical Impression Criteria for Skilled Therapeutic Interventions Met no problems identified which require skilled intervention Therapy Frequency evaluation only (will monitor during stay ) Anticipated Discharge Disposition home with assist 2017 OT Evaluation Code Rationale: ?? Diagnosis & Pertinent Co-Morbidities affecting Plan of Care: see PMHx ?? Occupational Profile & Client History: Brief Expanded Extensive x ?? Assessment of Occupational Performance: 1-3 performance deficits 3-5 performance deficits x 5 + performance deficits ?? Clinical Decision Making: Low Moderate High x Clinical decision making of moderate complexity using standardized patient assessment instrument and measurable assessment of functional outcome. * Initial Assessments - Meenu Lamar RN - 04/05/2018 12:49 PM EST Office of Care Management Initial Assessment Meenu aLmar RN reviewed record and discussed patient with Care Team. Source of Information: Chart review, interviewing patient Introduced self/reviewed role; services accepted. Reason for Hospitalization: Reason for Admission as Stated by Patient: cant feel my legs <principal problem not specified> Past Medical History: Diagnosis Date ??? Anxiety ??? Headache(784.0) Hospitalizations Within the Past 30 Days: No Anticipated Length Of Stay (If known): TBD Current Decision-Making Capacity: Patient is A&Ox4 Has current decision making capacity. Advance Care Planning: Full Code No. Discussed with patient importance and process for doing Advance Directives. Provided copy(ies) of [facility] Advance Directives Taking Steps booklet with forms. Current Coping/Education/Information Needs: Current coping questions and concerns have been addressed. Current Functional Ability: Pt is able to complete ADLs independently Functional Status Prior to Admission: Pt. Has been living with chronic back pain and was able to work only 4 hours a day . Can perform own ADLs Home Environment: 20 steps to get into apartment ( lives on that level once get into apartment) [address] [address] Social & Family Supports/Community Resources: Lives alone but mom lives in same town Extended Emergency Contact Information Primary Emergency [place]: [place] [address] [facility] Mobile Relation: Parent Secondary Emergency Contact: Sharee Jean Demorest Relation: Cousin Health/Prescription Coverage: Primary Insurance: MEDICAID [place] Secondary Insurance: N/A Prescription Coverage: yes Preferred Pharmacy: [id number] - [place], [place] - [address] [facility] [address] [facility] [address] [place], [place] - [address] [facility] [address] [facility] [address] [facility] [place], [place] - [address] [facility] [address] [facility] [id number] Primary Care Provider: Rodriguez Roberts MD [phone] Patient/Caregiver Goals of Treatment: Get better and find out what is going on Im to young for this Potential Needs for Transition of Care: medically ready. Rehab/SNF: No Home Health: No DME: No Dialysis: Community Resources: none Transportation: Mom Anticipated Barriers to Discharge/Special Considerations: anticipated barriers may arise as hospitalization continues. Assessment: 32 year old male with numbness in legs R/O MS . Needs will be dependent on hospital course. At this time no needs anticipated Plan: A member of the Care Management team will continue to monitor progress, follow for continuityof care and assist with transition of care planning. Meneu Lamar RN CM Brick Maker Pager #[phone] * Plan of Care - Erick Escalera RN - 04/05/2018 5:29 AM EST Problem: Patient Care Overview Goal: Plan of Care Review Outcome: Ongoing (Interventions Implemented as Appropriate) 04/04/181 Coping/Psychosocial Plan Of Care Reviewed With patient OUTCOME EVALUATION NOTE: OUTCOME SUMMARY: VSS, Oriented x4, pt reports numbness in bilat lwoers and RUE. Did not change overnight, PLAN MOVING FORWARD: Neurologic w/u ?d/c laddmdl INDIVIDUALIZED FALL PREVENTION INTERVENTIONS: Patient-specific fall risk factors per assessment: medical devices, numbness in lowers Assistance: Independent, SBA, Supervision: Independent, Eyes on, Surveillance: Bed locked in low position, call wang within reach, purposeful hourly rounding, clutter free environment, bed/chair alarm on, Patient-specific fall prevention interventions for sensory deficits provided: Yes CPG GOAL OUTCOME EVALUATION: Continue care plan as documented. * Consult Note - Nini Chua APRN - 04/04/2018 5:03 PM EST Neurosurgery Consultation CC: Pain and numbness from waist down HPI: Asked by José Fernando MD to see Erick Chacon, a 32 y.o. male with PMH significant for HTN and previous lower back pain regarding evaluation and management of new onset decreased sensation in his bilateral lower extremities. Patient reports approximately five days ago he experienced R sided neck and scapular pain followed by persistent numbness and tingling. He did not experience any weakness of loss of strength. He states that he continued with his daily activities without disruption. He reports that yesterday 04/03/18he experienced an acute decrease in sensation in his bilateral lower extremities and felt he neededto tell his legs to move. He again did not have lose of strength or motor function. He presented to an OSH for evaluation and was transferred to [facility] for further evaluation and r/o cauda equina syndrome. Patient denies any loss of bowel or bladder control, he denies any urinary retention. Medical History: Past Medical History: Diagnosis Date ??? Anxiety ??? Headache(784.0) Surgical History: History reviewed. No pertinent surgical history. Medications: (Not in a hospital admission) Allergies: No Known Allergies Family History: Family History Problem Relation Age of Onset ??? Arthritis Mother ??? Hypertension Mother Social History: Social History Tobacco Use ??? Smoking status: Former Smoker Last attempt to quit: 04/25/2014 Years since quittin.9 ??? Smokeless tobacco: Never Used Substance Use Topics ??? Alcohol use: Yes Comment: very rare ??? Drug use: No Review of Systems: Patient reports 4/5 pain that is his base line back pain. No other systemic complaints. Physical Exam: Vital Signs: Patient Vitals for the past 24 hrs: BP SpO2 04/04/18 0045 111/90 96 % 04/04/18 0100 129/65 96 % 04/04/18 0115 133/82 97 % 04/04/18 0730 135/72 97 % 04/04/18 0745 116/75 95 % 04/04/18 1037 127/80 -- 04/04/18 1038 -- 97 % 04/04/18 1045 124/87 98 % 04/04/18 1100 126/71 100 % 04/04/18 1115 123/76 -- 04/04/18 1130 118/82 97 % 04/04/18 1145 131/87 -- 04/04/18 1300 129/80 -- 04/04/18 1315 -- 97 % 04/04/18 1345 -- 96 % 04/04/18 1400 120/76 -- 04/04/18 1500 (!) 130/92 100 % 04/04/18 1600 125/71 97 % BMI: Vital Signs: BP 125/71 SpO2 97% General: Lying in bed, diaphoretic. No apparent distress HEENT: Atraumatic, normocephalic Neuro: Mental Status/Cognitive: Awake, alert, oriented x3 Speech: Fluent, appropriate Cranial Nerves: CN II - Visual acuity and joiner grossly intact, PERRL CN III, IV, - EOMI CN VII - No facial asymmetry CN XI - Trapezius 5/5 bilat CN XII - Tongue midline Tone: Normal Power: Segment Muscle Action Right Left C5 Biceps Elbow flexion 5 5 C6 Extensor carpi radialis Wrist extension 5 5 C7 Triceps Elbow extension 5 5 C8, T1 Hand intrinsics Grasp 5 5 L2 Iliopsoas Hip flexion 5 5 L3 Quadriceps Knee extension 5 5 L4 Tibialis anterior Dorsiflexion 5 5 L5 Extensor hallucis Great toe extension 5 5 S1 Gastrocnemius Plantar flexion 5 5 Sensation in the extremities: Light touch: DECREASED sensation in RUE and bilateral LE. Patient inconsistently able to identify sharp/dull sensation. Labs: Radiology: COMPARISON: CT of the cervical thoracic and [...] RIGHT posterior column (series 26 image 16). [place] segments of T2 prolongation with enhancement are [...] posterior to the mid T9 vertebral body. Impression: 32 year old male with new onset of decreased sensation in his RIGHT upper extremity and Bilateral lower extremities, without loss of strength or motor exam. Problem List: HTN Decreased sensation Plan: No need for surgical intervention at this time. Neurosurgery signing off at this time. Recommend Neurology consult, work up for MS. Nini Chua APRN 04/04/2018 documented in this encounter Plan of Treatment Upcoming Encounters Date Type Department Care Team (Late st Contact Info) Description 01/19/2024 1:00 PM EST Office Visit Urology at [facility] [address] [place] [phone] Desean Coronado MD [facility] [place] [place] [address] 01/22/2024 12:30 PM EST Office Visit Neurosurgery at [facility] [address] [facility] [place] [address] Hema Escalante MD [address] [facility] [place] [address] Liudmila Oates PA [facility] [place] [address] 02/01/2024 12:00 PM EST [place] [phone] Georgette Monae PA [facility] [place] [address] 05/30/2024 10:30 AM EDT [place] [phone] Scheduled Referrals Name Type Priority Associated Diagnoses Orde r Schedule Referral to Neurology Outpatient Referral Routine Multiple sclerosis Ordered: 04/07/2018 documented as of this encounter Procedures Procedure Name Priority Date/Time Associated Diagnosis Comments XR FLUORO GUIDED LUMBAR PUNCTURE Routine 04/06/2018 4:33 PM EST VZV PCR, CSF Routine 04/06/2018 3:41 PM EST ENTEROVIRUS PCR, CSF Routine 04/06/2018 3:41 PM EST CSF CULTURE Routine 04/06/2018 3:41 PM EST MYELIN BASIC PROTEIN, CSF Routine 04/06/2018 3:40 PM EST 4 TOTAL TUBES SENT CSF Routine 04/06/2018 3:40 PM EST CSF CELL COUNT Routine 04/06/2018 3:40 PM EST CSF DESC 4 Routine 04/06/2018 3:40 PM EST CSF DESC 3 Routine 04/06/2018 3:40 PM EST CSF DESC 2 Routine 04/06/2018 3:40 PM EST CSF DESC 1 Routine 04/06/2018 3:40 PM EST OLIGOCLONAL BANDING CSF Routine 04/06/2018 3:40 PM EST IGG INDEX CSF Routine 04/06/2018 3:40 PM EST PROTEIN LEVEL CSF Routine 04/06/2018 3:4 0 PM EST GLUCOSE LEVEL CSF Routine 04/06/2018 3:4 0 PM EST IMMUNOGLOBULINS, QUANTITATIVE Routine 04/06/2018 11:10 AM EST QUANTIFERON-TB GOLD Routine 04/06/2018 1 1:10 AM EST CD19 Routine 04/06/2018 11:10 AM EST HEMOGRAM Routine 04/06/2018 11:10 AM EST DIFFERENTIAL, AUTOMATED Routine 04/06/2018 11:10 AM EST HEPATITIS C ANTIBODY Routine 04/06/2018 11:10 AM EST HEPATITIS B CORE ANTIBODY, IGM Routine 04/06/2018 11:10 AM EST HIV SCREEN, 4TH GENERATION ([facility]/CGP/APD/NLH) Routine 04/06/2018 11:10 AM EST HEPATITIS B SURFACE ANTIBODY Routine 04/06/2018 11:10 AM EST HEPATITIS B SURFACE ANTIGEN Routine 04/06/2018 11:10 AM EST VARICELLA ZOSTER ANTIBODY, IGG Routine 04/06/2018 11:10 AM EST MRI BRAIN WWO CONTRAST (GENERIC) Routine 04/05/2018 5:51 PM EST TSH CASCADE Routine 04/05/2018 2:21 PM EST EXTRACTABLE NUCLEAR ANTIGEN (RISA) AB Routine 04/05/2018 2:21 PM EST DNA ANTIBODY (DOUBLE-STRANDED) Routine 04/05/2018 2:21 PM EST HELEN TITER Routine 04/05/2018 2:21 PM EST HELEN ANTIBODY SCREEN Routine 04/05/2018 2 :21 PM EST VITAMIN B12 Routine 04/05/2018 2:21 PM EST DIAGNOSTIC LUMBAR PUNCTURE Routine 04/05/2018 12:03 PM EST URINE HOLD Routine 04/05/2018 8:21 AM EST URINALYSIS WITH REFLEX CULTURE Routine 04/05/2018 8:21 AM EST LYME IGG & IGM ANTIBODY Routine 04/05/2018 1:39 AM EST HEMOGRAM Routine 04/05/2018 1:39 AM EST DIFFERENTIAL, AUTOMATED Routine 04/05/2018 1:39 AM EST APTT Routine 04/05/2018 1:39 AM EST PROTHROMBIN TIME Routine 04/05/2018 1:39 AM EST CBC (WITH DIFF) Routine 04/05/2018 1:39 AM EST PHOSPHORUS Routine 04/05/2018 1:39 AM EST MAGNESIUM Routine 04/05/2018 1:39 AM EST HEPATIC FUNCTION PANEL Routine 04/05/2018 1:39 AM EST BASIC METABOLIC PANEL Routine 04/05/2018 1:39 AM EST MRI TOTAL SPINE WITH/WO CONTRAST STAT 04/04/2018 10:29 AM EST documented in this encounter Results * XR Fluoro Lumbar Puncture (04/06/2018 4:33 PM EST) Anatomical Region Laterality Modality L-spine N/A Radio Fluoroscop y Impressions 04/06/2018 4:43 PM EST Successful fluoroscopic-guided lumbar puncture without immediate complications. Preliminary report signed by: Amos Boo at 04/06/2018 4:38 PM I, Dr. Isabel Echols, was present for the shoemaker portions of the procedure. I have personally reviewed the image(s) and the residents interpretation and agree with the findings, Isabel Echols at 04/06/2018 4:43 PM Thank you for letting us participate in the care of this patient. For questions regarding this report, please contact the number below. ? Narrative 04/06/2018 4:43 PM EST EXAMINATION: XR FLUORO LUMBAR PUNCTURE DIAGNOSIS CLINICAL HISTORY: patient w/ demyelinating lesions on MRI, concerning for MS. LP to look for evidence of MS TECHNIQUE: Patient was informed of the risks and benefits of the procedure and written informed consent obtained. A preprocedural timeout was performed per [facility] protocol. Patient was placed prone on the fluoroscopic table and an L2-L3 approach was marked under fluoroscopic visualization. The patient was prepped and draped using sterile technique. Less than 5 cc of 1% lidocaine was used for local anesthesia. A 3.5 22-gauge spinal needle was advanced under intermittent fluoroscopic guidance using a midline L2-L3 approach. There was return of clear CSF. 10 cc CSF sent for labs. The stylet was replaced before the needle was withdrawn. There were no immediate complications. COMPARISON: None FLUOROSCOPY TIME: 0.13 minutes FINDINGS: Return of clear CSF. 10 cc of clear CSF sent for labs. Procedure Note Isabel Echols MD - 04/06/2018 EXAMINATION: XR FLUORO LUMBAR PUNCTURE DIAGNOSIS CLINICAL HISTORY: patient w/ demyelinating lesions on MRI, concerning forMS. LP to look for evidence of MS TECHNIQUE: Patient was informed of the risks and benefits of the procedure andwritten informed consent obtained. A [facility]ural [facility]. Patient was placed prone on the fluoroscopic table and anL2-L3 approach was marked under fluoroscopic visualization. The patient wasprepped and draped using sterile technique. Less than 5 cc of 1% lidocaine wasused for local anesthesia. A 3.5 22-gauge spinal needle was advanced underintermittent fluoroscopic guidance using a midline L2-L3 approach. There was return ofclear CSF. 10 cc CSF sent for labs. The stylet was replaced before the needlewas withdrawn. There were no immediate complications. COMPARISON: None FLUOROSCOPY TIME: 0.13 minutes FINDINGS: Return of clear CSF. 10 cc of clear CSF sent for labs. IMPRESSION Successful fluoroscopic-guided lumbar puncture without immediatecomplications. Preliminary report signed by: Amos Boo at 04/06/2018 4:38 PM I, Dr. Isabel Echols, was present for the shoemaker portions of the procedure. I have personally reviewed the image(s) and the residents interpretationand agree with the findings, Isabel Echols at 04/06/2018 4:43 PM Thank you for letting us participate in the care of this patient. Forquestions regarding this report, please contact the number below. Erick [place] III, MD IMG FLUORO ORDERA BLES * CSF Culture (04/06/2018 3:41 PM EST) Central Nervous System Culture No growth [facility] Gram Stain Cytocentrifuge Gram Stain performed No Neutrophils seen. No microorganisms seen. [facility] Cerebrospinal fluid specimen (specimen) 04/06/2018 3:41 PM EST 04/06/2018 6:38 PM EST Narrative Resulting Agency Comment Spec In Lab Erick [place] III, MD MICROBIOLOGY - GE NERAL ORDERABLES Performing Organization Address City/State/[facility] Co de Phone Number [facility] [place] [address] * VZV PCR, CSF (04/06/2018 3:41 PM EST) Varicella-Zo ster PCR (MAY) Test ?Result ? Flag ??Unit ??RefValue ------- Varicella-Zoster Virus PCR ??Specimen Source ? csf ??Varicella-Zoster Virus PCR ?Negative ? Negative ? ---ADDITIONAL INFORMATION------- ?This test was developed and its performance characteristics ?determined by [facility] in a manner consistent with CLIA ?requirements. This test has not been cleared or approved by ?the U.S. Food and Drug Administration. ?Test Performed by: ?[facility] ?[address] [place] [address] [facility] Cerebrospinal fluid specimen (specimen) 04/06/2018 3:41 PM EST 04/09/2018 8:47 AM EST Narrative Resulting Agency Comment Spec In Lab Amos Deleon MD LAB SEND OUT ORDER ANURAG Performing Organization Address [facility]/ZIP Co de Phone Number [facility] [place] [address] * Enterovirus PCR, CSF (04/06/2018 3:41 PM EST) ENTV PCR Negative Negative [facility] Cerebrospinal fluid specimen (specimen) 04/06/2018 3:41 PM EST 04/06/2018 6:39 PM EST Narrative Resulting Agency Comment Spec In Lab Amos Deleon MD MICROBIOLOGY - GEN ERAL ORDERABLES Performing Organization Address [facility] Co de Phone Number [facility] [place] [address] * CSF Cell Count (04/06/2018 3:40 PM EST) Tube # counted 4 [facility] Total Nucleated Cell Count, CSF 3 0 - 5 /mcl [facility] Comment: If Nucleated CSF CT result equals Zero, no smear is made and no Differential is performed. If Nucleated CSF CT result is 1-5 / mcL, a smear is made and scanned but no results are reported unless abnormalities are noted. If Nucleated CSF CT result is 6 /mcL or greater, a smear is made and manual differential is performed and reported. Nucleated CSF CT results on a CSF fluid must be correlated with clinical condition. RBC Count CSF 1 /mcl [facility] Cerebrospinal fluid specimen (specimen) 04/06/2018 3:40 PM EST 04/06/2018 5:00 PM EST Narrative Resulting Agency Comment Spec In Lab Nova Resendiz MD BODY FLUIDS AND STO OLS ORDERABLES Performing Organization Address [facility] Co de Phone Number [facility] [place] [address] * CSF DESC 4 (04/06/2018 3:40 PM EST) Tube Num CSF 4 4 [facility] Color, CSF 4 Colorless Colorless [facility] Appearance, CSF 4 Clear Clear [facility] Total Vol, CSF 4 2.5 mL [facility] Cerebrospinal fluid specimen (specimen) 04/06/2018 3:40 PM EST 04/06/2018 5:00 PM EST Narrative Resulting Agency Comment Spec In Lab Nova Resendiz MD BODY FLUIDS AND STO OLS ORDERABLES Performing Organization Address [facility] de Phone Number [facility] [place] [address] * CSF DESC 3 (04/06/2018 3:40 PM EST) Tube Num CSF 3 3 [facility] Color, CSF 3 Colorless Colorless [facility] Appearance, CSF 3 Clear Clear [facility] Total Vol, CSF 3 3.0 mL [facility] Cerebrospinal fluid specimen (specimen) 04/06/2018 3:40 PM EST 04/06/2018 5:00 PM EST Narrative Resulting Agency Comment Spec In Lab Nova Resendiz MD BODY FLUIDS AND STO OLS ORDERABLES Performing Organization Address [facility] Co de Phone Number [facility] [place] [address] * CSF DESC 2 (04/06/2018 3:40 PM EST) Tube Num CSF #2 2 [facility] Color, CSF 2 Colorless Colorless [facility] Appearance, CSF 2 Clear Clear [facility] Total Vol, CSF 2 2.2 mL [facility] Cerebrospinal fluid specimen (specimen) 04/06/2018 3:40 PM EST 04/06/2018 5:00 PM EST Narrative Resulting Agency Comment Spec In Lab Nova Resendiz MD BODY FLUIDS AND STO OLS ORDERABLES Performing Organization Address [facility] de Phone Number [facility] [place] [address] * CSF DESC 1 (04/06/2018 3:40 PM EST) Tube Num CSF #1 1 [facility] Color, CSF Colorless Colorless [facility] Appearance, CSF Clear Clear [facility] Total Vol, CSF 2.0 mL [facility] Cerebrospinal fluid specimen (specimen) 04/06/2018 3:40 PM EST 04/06/2018 5:00 PM EST Narrative Resulting Agency Comment Spec In Lab Nova Resendiz MD BODY FLUIDS AND STO OLS ORDERABLES Performing Organization Address [facility] de Phone Number [facility] [place] [address] * IgG Index CSF (04/06/2018 3:40 PM EST) IgG Index, CSF (MAY) Test ? Result ?Flag ??Unit ? RefValue Cerebrospinal Fl, CSF, IgG Index ??IgG Index, CSF ? 0.68 ? <=0.85 ??IgG, CSF ? 2.6 ? mg/dL ?<=8.1 ??Albumin, CSF ? 13.5 ?mg/dL ?<=27.0 ??IgG/Albumin, CSF ? 0.19 ? <=0.21 ??Synthesis Rate, CSF ?2.61 ?mg/24 h ??<=12 ??IgG, S ? 1130 ?mg/dL ?767 - 1590 ??Albumin, S ? 4000 ?mg/dL ?3200 - 4800 ??IgG/Albumin, S ? 0.28 ? <=0.40 ?Test Performed by: ?[facility] [address] ?[address] , [place] [address] [facility] 04/06/2018 3:40 PM EST 04/09/2018 8:47 AM EST Narrative Resulting Agency Comment Spec In Lab Amos Deleon MD LAB SEND OUT ORDER ANURAG Performing Organization Address [facility] Co de Phone Number [facility] [place] [address] * Myelin Basic Protein, CSF (04/06/2018 3:40 PM EST) Myelin Basic Protein, CSF <2.0 2.0 - 4.0 mcg/L [facility] Comment: Reference ranges for Myelin Basic Protein: ??Result ? Interpretation 2.0 - 4.0 mcg/L ?Negative 4.1 - 6.0 mcg/L ?Weakly Positive Greater than 6.0 mcg/L ? Positive This test was developed and its analytical performance characteristics have been determined by [employer] [place], [place]. It has not been cleared or approved by the U.S. Food and Drug Administration. This assay has been validated pursuant to the CLIA regulations and is used for clinical purposes. Test Performed by [facility], [employer] [facility], [address] [place], [place] Sergo Ham M.D., Ph.D., Director of Laboratories , CLIA [id number] Cerebrospinal fluid specimen (specimen) 04/06/2018 3:40 PM EST 04/09/2018 12:04 PM EST Narrative Resulting Agency Comment Spec In Lab Amos Deleon MD LAB SEND OUT ORDER ANURAG Performing Organization Address [facility] Co de Phone Number [facility] [place] [address] * (ABNORMAL) Oligoclonal Banding CSF (04/06/2018 3:40 PM EST) Oligo Bands Csf (MAY) Test ? Result ?Flag ??Unit ? RefValue Oligoclonal Banding ??Serum Bands ?0 ? bands ??CSF Bands ?13 ?bands ??CSF Olig Bands Interpretation ?13 ? @ ?bands ?<4 ?The oligoclonal band assay detected 4 or more unique IgG ?bands in the CSF. This is a positive result. ?CSF is used in the diagnosis of MS by identifying increased ?intrathecal IgG synthesis qualitatively (Oligoclonal Bands) ?or quantitatively (IgG index or IgG synthesis rate, CSF). ?Oligoclonal bands (4 or more CSF-specific bands) and/or an ?elevated CSF IgG index are detected in up to 90% of ?patients with MS. These findings, however, are not specific ?for MS as CSF-specific IgG synthesis may also be found in ?patients with other neurologic diseases including ?infectious, inflammatory, cerebrovascular, and ?paraneoplastic disorders. ?Test Performed by: ?[facility] [address] ?[address] [place] [facility] [place] [address](A) [facility] 04/06/2018 3:40 PM EST 04/09/2018 8:47 AM EST Narrative Resulting Agency Comment Spec In Lab Amos Deleon MD LAB SEND OUT ORDER ANURAG Performing Organization Address City/[facility]/ZIP Co de Phone Number [facility] [place] [address] * Glucose Level CSF (04/06/2018 3:40 PM EST) Glucose, CSF 132 mg/dL [facility] Comment:CSF at equilibrium e quals approximately 60-80% of plasma glucose. Cerebrospinal fluid specimen (specimen) 04/06/2018 3:40 PM EST 04/06/2018 5:00 PM EST Narrative Resulting Agency Comment Spec In Lab Amos Deleon MD BODY FLUIDS AND ST OOLS ORDERABLES Performing Organization Address [facility] Co de Phone Number [facility] [place] [address] * Protein Level CSF (04/06/2018 3:40 PM EST) Protein, CSF 30 15 - 45 mg/dL [facility] Xanthochromia Neg [facility] Cerebrospinal fluid specimen (specimen) 04/06/2018 3:40 PM EST 04/06/2018 5:00 PM EST Narrative Resulting Agency Comment Spec In Lab Amos Deleon MD BODY FLUIDS AND ST OOLS ORDERABLES Performing Organization Address City/[facility] Co de Phone Number [facility] [place] [address] * (ABNORMAL) Immunoglobulins, Quantitative (04/06/2018 11:10 AM EST) Immunoglobulin G 1,151 700 - 1,600 mg/dL [facility] Comment: Pediatric Reference Intervals obtained from the Caliper Reference Interval project. http://www.sickkids.ca/caliperproject/index.html IgA 426(H) 70 - 400 mg/dL [facility] IgM 101 40 - 230 mg/dL [facility] Blood specimen (specimen) Venous Draw / Unknown 04/06/2018 11:10 AM EST 04/06/2018 11:31 AM EST Narrative Resulting Agency Comment Spec In Lab Stephania Bhardwaj MD CHEMISTRY ORDERABLE S [facility] [place] [address] * (ABNORMAL) Differential, Automated (04/06/2018 11:10 AM EST) Neutrophil % 87.2 % [facility] Neutrophil Absolute 14.14(H) 1.70 - 6.10 x10(3)/mc L [facility] Lymph % 9.6 % [facility] Lymphocytes Abs 1.6 0.9 - 3.2 x10(3)/mc L [facility] Monocyte % 2.8 % [facility] Monocyte Abs 0.5 0.3 - 0.9 x10(3)/mc L [facility] Eos % 0.0 % [facility] Eosinophils Abs 0.0 0.0 - 0.4 x10(3)/mc L [facility] Basophil % 0.1 % [facility] Baso Absolute 0.0 0.0 - 0.1 x10(3)/mc L [facility] Immature Gran % 0.30 % [facility] Comment: Immature granulocytes(IG's)percentage and absolute count will include metamyelocytes, myelocytes, and promyelocytes. Blood smears from CBCs yielding IG's will be scanned manually for concordance. If this scan disagrees with the automated IG or if promyelocytes are noted, a manual differential will be performed. Immature Gran Absolute 0.05(H) 0.00 - 0.04 x10(3)/mc L [facility] Blood specimen (specimen) 04/06/2018 11:10 AM EST 04/06/2018 11:31 AM EST Narrative Resulting Agency Comment Spec In Lab Stephania Bhardwaj MD HEMATOLOGY ORDERABL ES [facility] [place] [address] * (ABNORMAL) Hemogram (04/06/2018 11:10 AM EST) White Blood Cell 16.2(H) 4.0 - 9.5 x10(3)/[facility] Red Blood Cell 5.37 4.58 - 5.54 x10(6)/[facility] Hemoglobin 15.2 13.7 - 16.5 gm/dL [facility] Hematocrit 43.8 40.5 - 48.5 % [facility] Mean Cell Volume 81.6(L) 82.9 - 93.1 fL [facility] Mean Cell Hemoglobin 28.3 27.5 - 32.1 pg [facility] Mean Cell Hemoglobin Concentration 34.7 32.0 - 35.7 gm/dL [facility] Platelet 239 145 - 357 x10(3)/[facility] RDW Standard Deviation 37.7 36.0 - 45.0 [facility] RDW coefficient of variation 12.8 11.4 - 13.8 % [facility] Mean Platelet Volume 11.4 7.6 - 12.9 [facility] NRBC% auto 0.0 % [facility] NRBC Absolute 0.000 0.000 - 0.000 x10(3)/[facility] Blood specimen (specimen) 04/06/2018 11:10 AM EST 04/06/2018 11:31 AM EST Narrative Resulting Agency Comment Spec In Lab Stephania Bhardwaj MD HEMATOLOGY ORDERABL ES [facility] [place] [address] * QuantiFERON-TB Gold (04/06/2018 11:10 AM EST) Quantiferon Nil 0.030 IU/mL [facility] QFT TB Ag1-Nil -0.010 IU/mL [facility] LABORATORY QFT TB Ag2-Nil -0.010 IU/mL [facility] Quantiferon Mitogen-Nil 9.820 IU/mL [facility] Quantiferon-TB Gold Negative Negative [facility] Quantiferon Tb Interp M. tuberculosis [...] affect immune function, or other immunological factors. [facility] Comment: The performance of the QFT-Plus assay has not been extensively evaluated with specimens from the following individuals: Individuals who have impaired or altered immune functions, such as those who have HIV infection or AIDS, those who have transplantation managed with immunosuppressive treatment or others who receive immunosuppressive drugs (e.g., corticosteroids, methotrexate, azathioprine, cancer chemotherapy), those who have other clinical conditions, such as diabetes, silicosis, chronic renal failure, and hematological disorders (e.g., leukemia and lymphomas), or those with other specific malignancies (e.g., carcinoma of the head or neck and lung). Individuals younger than age 17 years women. Diagnosis of, or the exclusion of tuberculosis disease, and assessment of Latent Tuberculosis Infection (LTBI) requires a combination of epidemiological, historical, Medical and diagnostic findings that should be taken into account when interpreting QFT-Plus results. Blood specimen (specimen) 04/06/2018 11:10 AM EST 04/09/2018 7:51 AM EST Narrative Resulting Agency Comment Spec In Lab Erick York III, MD CHEMISTRY ORDERAB LES Performing Organization Address City/[facility]/ZIP Co de Phone Number [facility] [place] [address] * Varicella zoster Antibody, IgG (04/06/2018 11:10 AM EST) Varicella Zoster Antibody IgG Pos [facility] Blood specimen (specimen) 04/06/2018 11:10 AM EST 04/06/2018 1:32 PM EST Narrative Resulting Agency Comment Spec In Lab Erick York III, MD IMMUNOLOGY ORDERA BLES Performing Organization Address [facility] Co de Phone Number [facility] [place] [address] * (ABNORMAL) CD19 (04/06/2018 11:10 AM EST) CD19% 17 6 - 23 % [facility] CD19 ABS 257 99 - 473 /[facility] LABORATORY Comment: This assay is a dual platform determination. ??The PERCENTAGE of lymphocytes bearing the CD19 is determined using flow cytometry immunophenotyping. ??The ABSOULTE COUNT of [id number] is determined by multiplying the percentages by the absolute lymphocyte count obtained from the concurrent CBC. The displayed reference range is derived by assaying the general reference population, regardless of gender, but aged between 16 and 70 years of age. ??For individuals less than 16, pediatric reference ranges are derived from the literature [Journal of Pediatrics 1997 Apr;130(3):388-393]. White Blood Cell 16.2(H) 4.0 - 9.5 x10(3)/[facility] LABORATORY Lymph % 9.6 % [facility] Lymphocytes Abs 1.6 0.9 - 3.2 x10(3)/[facility] LABORATORY Blood specimen (specimen) 04/06/2018 11:10 AM EST 04/06/2018 11:31 AM EST Narrative Resulting Agency Comment Spec In Lab Erick York III, MD HEMATOLOGY ORDERA BLES Performing Organization Address City/[facility]/ZIP Co de Phone Number [facility] [place] [address] * Hepatitis B Surface Antigen (04/06/2018 11:10 AM EST) Hepatitis B Surface Antigen Negative Negative [facility] Blood specimen (specimen) 04/06/2018 11:10 AM EST 04/06/2018 11:31 AM EST Narrative Resulting Agency Comment Spec In Lab Erick York III, MD CHEMISTRY ORDERAB LES Performing Organization Address [facility] Co de Phone Number [facility] [place] [address] * Hepatitis B Surface Antibody (04/06/2018 11:10 AM EST) Hepatitis B Surface Antibody, Quantitative 3.5 IU/L [facility] Comment: HepB Surface Ab Quant: Unvaccinated: < 8.5 IU/L Vaccinated: > 11.5 IU/L Hepatitis B Surface Antibody Negative [facility] Comment: Patient is presumed to be not vaccinated or immune to HBV infection. Expected Results: Vaccinated: Positive Unvaccinated: Negative Blood specimen (specimen) 04/06/2018 11:10 AM EST 04/06/2018 11:31 AM EST Narrative Resulting Agency Comment Spec In Lab Erick York III, MD CHEMISTRY ORDERAB LES Performing Organization Address [facility] Co de Phone Number [facility] [place] [address] * Hepatitis B Core Antibody, IgM (04/06/2018 11:10 AM EST) Hepatitis B Core IgM Negative Negative [facility] Blood specimen (specimen) 04/06/2018 11:10 AM EST 04/06/2018 11:31 AM EST Narrative Resulting Agency Comment Spec In Lab Erick York III, MD CHEMISTRY ORDERAB LES Performing Organization Address [facility] Co de Phone Number [facility] [place] [address] * Hepatitis C Antibody (04/06/2018 11:10 AM EST) Hepatitis C Antibody Negative Negative [facility] Blood specimen (specimen) 04/06/2018 11:10 AM EST 04/06/2018 11:31 AM EST Narrative Resulting Agency Comment Spec In Lab Erick York III, MD CHEMISTRY ORDERAB LES Performing Organization Address [facility] Phone Number [facility] [place] [address] * HIV Screen, 4th Generation (04/06/2018 11:10 AM EST) HIV Ab/Ag Screen Negative Negative [facility] Comment: This 4th Generation HIV [...] MD CHEMISTRY ORDERAB LES Performing Organization Address [facility] Co de Phone Number [facility] [place] [address] * MRI Brain wwo Contrast (Generic) (04/05/2018 5:51 PM EST) Anatomical Region Laterality Modality Head Magnetic Resonan ce Impressions 04/05/2018 7:00 PM EST Findings suggestive of demyelination with enhancing and nonenhancing lesions. Thank you for letting us participate in the care of this patient. For questions regarding this report, please contact the number below. ? Narrative 04/05/2018 7:00 PM EST EXAMINATION: MRI BRAIN WWO CONTRAST (GENERIC) CLINICAL HISTORY: 32 yo M with new onset paresthesias and numbness, found to have cervical cord enhancing lesions ?eval for MS or other pathology TECHNIQUE: MRI of the brain was performed before and after the intravenous administration of 19cc Dotarem. COMPARISON: MR 04/04/2018 FINDINGS: There is a linear T2 hyperintense lesion in the right centrum semiovale, with several other small subcortical and periventricular areas of T2 signal alteration. There is T2 signal abnormality at the superior aspect of the right brachium pontis, adjacent to the lloyd. The lesion at the right brachium pontis demonstrates mild enhancement. No enhancement elsewhere. There is no restricted diffusion. No mass effect or shift. Procedure Note Christopher Wong MD - 04/05/2018 EXAMINATION: MRI BRAIN WWO CONTRAST (GENERIC) CLINICAL HISTORY: 32 yo M with new onset paresthesias and numbness, foundto have cervical cord enhancing lesions ?eval for MS or other pathology TECHNIQUE: MRI of the brain was performed before and after the intravenousadministration of 19cc Dotarem. COMPARISON: MR 04/04/2018 FINDINGS: There is a linear T2 hyperintense lesion in the right centrum semiovale,with several other small subcortical and periventricular areas of T2 signal alteration. There is T2 signal abnormality at the superior aspect of theright brachium pontis, adjacent to the lloyd. The lesion at the right brachiumpontis demonstrates mild enhancement. No enhancement elsewhere. There is norestricted diffusion. No mass effect or shift. IMPRESSION Findings suggestive of demyelination with enhancing and nonenhancinglesions. Thank you for letting us participate in the care of this patient. Forquestions regarding this report, please contact the number below. Babs Ribeiro MD IMG MRI ORDERABLES * (ABNORMAL) HELEN Titer (04/05/2018 2:21 PM EST) HELEN Titer Pos at 1:320(A) [facility] Comment: 1:320 Titer seen with Homogeneous/Diffuse pattern. ??Is suggestive of autoantibodies to nDNA, histones, or DNA-associated proteins. Blood specimen (specimen) 04/05/2018 2:21 PM EST 04/06/2018 7:25 AM EST Narrative Resulting Agency Comment Spec In Lab Mckinley Hoffman MD IMMUNOLOGY ORDERABLE S Performing Organization Address [facility]/ZIP Co de Phone Number [facility] [place] [address] * DNA Antibody (Double-Stranded) (04/05/2018 2:21 PM EST) Pathologist [facility] DNA Ab (DS) Neg Neg [facility] Blood specimen (specimen) 04/05/2018 2:21 PM EST 04/06/2018 7:25 AM EST Narrative Resulting Agency Comment Spec In Lab Mckinley Hoffman MD LAB SEND OUT ORDERAB LES Performing Organization Address [facility]/ZIP Co de Phone Number [facility] [place] [address] * Vitamin B12 (04/05/2018 2:21 PM EST) Vitamin B12 567 232 - 1,245 pg/mL [facility] Blood specimen (specimen) 04/05/2018 2:21 PM EST 04/05/2018 2:26 PM EST Narrative Resulting Agency Comment Spec In Lab Erick York III, MD CHEMISTRY ORDERAB LES Performing Organization Address [facility] Co de Phone Number [facility] [place] [address] * TSH [place] (04/05/2018 2:21 PM EST) Thyroid Stimulating Hormone 0.30 0.27 - 4.20 mlU/ML [facility] Blood specimen (specimen) 04/05/2018 2:21 PM EST 04/05/2018 2:25 PM EST Narrative Resulting Agency Comment Spec In Lab Erick York III, MD CHEMISTRY ORDERAB LES Performing Organization Address [facility] Co de Phone Number [facility] [place] [address] * Extractable Nuclear Antigen (RISA) Ab (04/05/2018 2:21 PM EST) RISA Ab Test ?Result ?Flag ??Unit ??RefValue Ab to Extractable Nuclear Ag Eval,S ??SS-A/Ro Ab, IgG, S ?<0.2 ?U ? <1.0 (Negative) ??SS-B/La Ab, IgG, S ?<0.2 ?U ? <1.0 (Negative) ??Sm Ab, IgG, S ? <0.2 ?U ? <1.0 (Negative) ??[facility] Ab, IgG, S ?0.8 ? U ? <1.0 (Negative) ??Scl 70 Ab, IgG, S ? <0.2 ?U ? <1.0 (Negative) ??Katie 1 Ab, IgG, S ? <0.2 ?U ? <1.0 (Negative) ?Test Performed by: ?[facility] ?[address] LABORATORY Blood specimen (specimen) 04/05/2018 2:21 PM EST 04/06/2018 8:32 AM EST Narrative Resulting Agency Comment Spec In Lab Erick York III, MD LAB SEND OUT CARLOS ERNANDEZ Performing Organization Address City/State/[facility] Co de Phone Number [facility] [place] [address] * (ABNORMAL) HELEN (LEB/CGP) (04/05/2018 2:21 PM EST) HELEN Pos, See Titer(A) Neg [facility] Blood specimen (specimen) 04/05/2018 2:21 PM EST 04/06/2018 7:25 AM EST Narrative Resulting Agency Comment Spec In Lab Erick York III, MD LAB SEND OUT ALLENИван [facility] Organization Address City/State/ZIP Co de Phone Number [facility] [place] [address] * DIAGNOSTIC LUMBAR PUNCTURE (04/05/2018 12:03 PM EST) Narrative Erick York III, MD - 04/05/2018 12:03 PM EST Evelyn Morrison MD ? 04/05/2018 12:13 PM Neurology Procedure Note Date: 04/05/2018 Patient: Erick Chacon : ??1985 Procedure: lumbar puncture (diagnostic) Indications: Work up for multiple sclerosis Risk and benefits were explained to the patient and consent was obtained. Patient consented for the CSF banking study; [facility] # [id number] - 3cc of spinal fluid will be sent to the lab and stored for this purpose. Time out was preformed. Past Medical History: Diagnosis Date ? ? Anxiety ? Headache(784.0) ?? Current Facility-Administered Medications Medication Dose Route Frequency Provider Last Rate Last Dose ? ? gadoterate meglumine (DOTAREM) 0.5 mmol/mL (376.9 mg/mL) injection 0-100 mL ??0-100 mL Intravenous Once PRN Jovanny Muller MD ? methylPREDNISolone sodium succinate (PF) (SOLU-Medrol) 1,000 mg in sodium chloride 0.9% 108 mL ??1,000 mg Intravenous Daily Georgette Monae PA ? pantoprazole (PROTONIX) tablet 40 mg ??40 mg Oral Daily Georgette Monae PA ? baclofen (LIORESAL) tablet 5 mg ??5 mg Oral TID Evelyn Morrison MD ? diazePAM (VALIUM) tablet 5 mg ??5 mg Oral Nightly PRN Evelyn Morrison MD ? lidocaine (XYLOCAINE) 10 mg/mL (1 %) injection 200 mg ??20 mL Subcutaneous Once Mckinley Hoffman MD ? methylphenidate HCl (RITALIN) tablet 20 mg ??20 mg Oral TID AC Nova Resendiz MD ?? 20 mg at 04/05/18 0830 ? ? NIFEdipine (ADALAT CC) CR tablet 30 mg ??30 mg Oral Daily Nova Resendiz MD ?? 30 mg at 04/05/18 0837 ? ? traMADol (ULTRAM) tablet 50 mg ??50 mg Oral Q4H PRN Nova Resendiz MD ?? 50 mg at 04/05/18 0841 ? ? sodium chloride 0.9 % flush 5 mL ??5 mL Intravenous BID Nova Resendiz MD ?? 5 mL at 04/05/18 0900 ? ? sodium chloride 0.9 % flush 5-20 mL ??5-20 mL Intravenous Q1 Min PRN Nova Resendiz MD ? lidocaine (XYLOCAINE) 10 mg/mL (1 %) injection 3 mg ??0.3 mL Subcutaneous Once PRN Nova Resendiz MD ? enoxaparin (LOVENOX) injection 40 mg ??40 mg Subcutaneous Nightly Nova Resendiz MD ? senna-docusate (PERICOLACE) 8.6-50 mg per tablet 2 tablet ??2 tablet Oral BID Nova Resendiz MD ? bisacodyl (DULCOLAX) suppository 10 mg ??10 mg Rectal Daily PRN Nova Resendiz MD ? magnesium hydroxide (MILK OF MAGNESIA) oral suspension 10 mL ?? 10 mL Oral Daily PRN Nova Resendiz MD ? acetaminophen (TYLENOL) tablet 650 mg ??650 mg Oral Q6H PRN Nova Resendiz MD ? No Known Allergies Patient was positioned on his side in a position. ??The skin was prepped with ChloraPrep (2% chlorhexidine solution/70% isopropyl alcohol) and draped in sterile fashion. ??8 cc lidocaine were used to numb the skin and insertion site. ??A 22-g 3.5 Sprotte spinal needle was inserted, using an introducer into the space between L4 and L5 . A second attempt was made in the sitting up position in the space between L3 and L4. ??Two attempt was made. 0 CSF was obtained due to patient complicated anatomy. He will be sent for a lumbar puncture under flouroscopy A total of 0 cc spinal fluid was removed. ??Patient tolerated the procedure well. ??There were no immediate complications observed. ?? Blood Loss <1cc (KEEP IF CSF DATABANK SAMPLE IS COLLECTED) The patient was approached by Dr. Hoffman about participating in the CSF Biospecimen and Data Bank, a single institution study at [facility] with Drs. Erick Flowers and Bhavin Aguero as lead investigators. After meeting inclusion and exclusion criteria, subjects will provide witnessed informed consent. All questions from the patient regarding this study have been answered. The consent form has [facility]-approval date of 10/03/2014. ?? All study-related procedures were completed after signing the ICF. A copy of the ICF has been provided to the patient. The CSF sample was not collected and properly stored and sent to the CSF banking Lab because we could not obtain CSF. Patient will be sent for XR lumbar puncture instead. Evelyn Morrison MD Neurology 04/05/2018 ?? Babs Ribeiro MD NEUROLOGY ORDERABLES * Urine Hold (04/05/2018 8:21 AM EST) Hold, Urine Sample in lab. [facility] Urine specimen (specimen) Urine / Unknown 04/05/2018 8:21 AM EST 04/05/2018 8:46 AM EST Nova Resendiz MD URINE ORDERABLES [facility] [place] [address] * (ABNORMAL) Urinalysis with reflex Culture (04/05/2018 8:21 AM EST) Glucose, Urine Dipstick Negative Negative mg/dL [facility] Protein, Urine Dipstick Negative Negative mg/dL [facility] Bilirubin, Urine Dipstick Negative Negative mg/dL [facility] Comment: Clinical correlation required for positive Urine Bilirubin results as false positive may occur with some drugs and drug related products. If a false positive is suspected a serum total bilirubin should be considered if clinically indicated. Urobilinogen, Urine Dipstick Normal Normal mg/dL [facility] pH, Urn (dipstick) 6.0 5.0 - 8.0 [facility] Blood, Urine Dipstick Negative Negative mg/dL [facility] Ketone, Urine Dipstick 5(A) Negative mg/dL [facility] Nitrite, Urine Dipstick Negative Negative [facility] Leukocytes, Urine Dipstick Negative Negative [facility] Appearance, Urine Dipstick Clear Clear [facility] Specific Melbeta Urine Automated 1.014 1.002 - 1.030 [facility] Color, Urine Dipstick Yellow Yellow [facility] Reflex to Culture No [facility] Urine specimen (specimen) 04/05/2018 8:21 AM EST 04/05/2018 8:45 AM EST Narrative Resulting Agency Comment Spec In Lab Babs Ribeiro MD URINE ORDERABLES Performing Organization Address City/State/[facility] Co de Phone Number [facility] [place] [address] * Differential, Automated (04/05/2018 1:39 AM EST) Neutrophil % 64.0 % [facility] Neutrophil Absolute 5.19 1.70 - 6.10 x10(3)/[facility] LABORATORY Lymph % 22.4 % [facility] Lymphocytes Abs 1.8 0.9 - 3.2 x10(3)/[facility] Monocyte % 11.5 % [facility] Monocyte Abs 0.9 0.3 - 0.9 x10(3)/[facility] Eos % 1.5 % [facility] Eosinophils Abs 0.1 0.0 - 0.4 x10(3)/[facility] Basophil % 0.4 % [facility] Baso Absolute 0.0 0.0 - 0.1 x10(3)/[facility] Immature Gran % 0.20 % [facility] Comment: Immature granulocytes(IG's)percentage and absolute count will include metamyelocytes, myelocytes, and promyelocytes. Blood smears from CBCs yielding IG's will be scanned manually for concordance. If this scan disagrees with the automated IG or if promyelocytes are noted, a manual differential will be performed. Immature Gran Absolute 0.02 0.00 - 0.04 x10(3)/[facility] Blood specimen (specimen) 04/05/2018 1:39 AM EST 04/05/2018 2:16 AM EST Narrative Resulting Agency Comment Spec In Lab Nova Resendiz MD HEMATOLOGY ORDERABL ES [facility] [place] [address] * Hemogram (04/05/2018 1:39 AM EST) White Blood Cell 8.1 4.0 - 9.5 x10(3)/[facility] Red Blood Cell 5.01 4.58 - 5.54 x10(6)/[facility] Hemoglobin 14.3 13.7 - 16.5 gm/dL [facility] Hematocrit 42.7 40.5 - 48.5 % [facility] Mean Cell Volume 85.2 82.9 - 93.1 fL [facility] Mean Cell Hemoglobin 28.5 27.5 - 32.1 pg [facility] Mean Cell Hemoglobin Concentration 33.5 32.0 - 35.7 gm/dL [facility] Platelet 189 145 - 357 x10(3)/[facility] LAB[facility] RDW Standard Deviation 38.8 36.0 - 45.0 fL [facility] RDW coefficient of variation 12.5 11.4 - 13.8 % [facility] Mean Platelet Volume 11.5 7.6 - 12.9 fL [facility] NRBC% auto 0.0 % [facility] NRBC Absolute 0.000 0.000 - 0.000 x10(3)/mcL [facility] Blood specimen (specimen) 04/05/2018 1:39 AM EST 04/05/2018 2:16 AM EST Narrative Resulting Agency Comment Spec In Lab Nova Resendiz MD HEMATOLOGY ORDERABL ES Performing Organization Address [facility] Co de Phone Number [facility] [place] [address] * Lyme IgG & IgM Antibody (04/05/2018 1:39 AM EST) Lyme Antibody Neg Neg [facility] Blood specimen (specimen) 04/05/2018 1:39 AM EST 04/05/2018 7:07 AM EST Narrative Resulting Agency Comment Spec In Lab Amos Deleon MD IMMUNOLOGY ORDERAB LES Performing Organization Address [facility] Co de Phone Number [facility] [place] [address] * Magnesium (04/05/2018 1:39 AM EST) Magnesium 0.87 0.69 - 1.07 mmol/L [facility] Blood specimen (specimen) 04/05/2018 1:39 AM EST 04/05/2018 2:16 AM EST Narrative Resulting Agency Comment Spec In Lab Babs Ribeiro MD CHEMISTRY ORDERABLES Performing Organization Address [facility] Co de Phone Number [facility] [place] [address] * Phosphorus (04/05/2018 1:39 AM EST) Phosphorus 4.3 2.5 - 4.5 mg/dL [facility] Blood specimen (specimen) 04/05/2018 1:39 AM EST 04/05/2018 2:16 AM EST Narrative Resulting Agency Comment Spec In Lab Babs Ribeiro MD CHEMISTRY ORDERABLES Performing Organization Address [facility] Co de Phone Number [facility] [place] [address] * APTT (04/05/2018 1:39 AM EST) Partial Thromboplastin Time 34 25 - 37 sec [facility] Comment: The PTT is NOT appropriate for heparin monitoring. Use the Anti-Xa level for heparin monitoring (HEP UFH) or LMWH monitoring (HEP LMW). A PTT less than 37 seconds generally indicates adequate hemostasis. Blood specimen (specimen) 04/05/2018 1:39 AM EST 04/05/2018 2:16 AM EST Narrative Resulting Agency Comment Spec In Lab Babs Ribeiro MD HEMATOLOGY ORDERABLE S Performing Organization Address [facility] de Phone Number [facility] [place] [address] * (ABNORMAL) Prothrombin Time (04/05/2018 1:39 AM EST) Prothrombin Time 13.5(H) 9.4 - 12.5 sec [facility] International Normalization Ratio 1.2 [facility] Comment: An INR <2.0 indicates adequate procoagulant activity for hemostasis in most patients without underlying bleeding disorders, though the INR may not adequately reflect hemostatic capacity in patients with liver disease and synthetic impairment. The recommended target INR range for therapeutic anticoagulation is 2.0 ? 3.0 for most applications, though lower and higher ranges may be appropriate depending on clinical circumstances. Blood specimen (specimen) 04/05/2018 1:39 AM EST 04/05/2018 2:16 AM EST Narrative Resulting Agency Comment Spec In Lab Babs Ribeior MD HEMATOLOGY ORDERABLE S Performing Organization Address [facility] Co de Phone Number [facility] [place] [address] * Hepatic Function Panel (04/05/2018 1:39 AM EST) [facility] Protein, Total 6.9 6.1 - 8.0 gm/dL [facility] Albumin 4.0 3.2 - 5.2 gm/dL [facility] Aspartate Aminotransferase 19 0 - 39 unit/L [facility] Alanine Aminotransferase 20 0 - 55 unit/L [facility] Alkaline Phosphatase 68 40 - 120 unit/L [facility] Bilirubin, Total 0.4 0.2 - 1.3 mg/dL [facility] Bilirubin, Direct 0.1 0.0 - 0.3 mg/dL [facility] Blood specimen (specimen) 04/05/2018 1:39 AM EST 04/05/2018 2:16 AM EST Narrative Resulting Agency Comment Spec In Lab Babs Ribeiro MD CHEMISTRY ORDERABLES Performing Organization Address City/State/[facility] Co de Phone Number [facility] [place] [address] * (ABNORMAL) Basic Metabolic Panel (non-fasting) (04/05/2018 1:39 AM EST) [facility] Glucose 106 65 - 199 mg/dL [facility] LABORATORY Comment:Diabetes: >=200 mg/d L plus symptoms Blood Urea Nitrogen 16 10 - 20 mg/dL [facility] Creatinine 0.76(L) 0.80 - 1.50 mg/dL [facility] Sodium 139 135 - 145 mmol/L [facility] Potassium 3.8 3.5 - 5.0 mmol/L [facility] Comment: Please note: ??Patients with WBC >100,000 may have falsely elevated Potassium levels. ??For accurate Potassium quantification in these patients send serum separator tube (gold top) for subsequent determinations. ??Contact the Clinical Chemistry Laboratory if there are any questions. Chloride 103 98 - 107 mmol/L [facility] Carbon Dioxide 27 22 - 31 mmol/L [facility] Anion Gap 9 5 - 15 mmol/L [facility] Calcium 9.1 8.5 - 10.5 mg/dL [facility] Est Glomerular Filtration Rate 120 >=60 mL/min/1. 73 m?? [facility] Comment: The eGFR was calculated using the CKD-EPI equation. As with all creatinine based estimates of kidney function, eGFR values calculated with the CKD-EPI equation are not accurate in patients with acute kidney failure, extremes of body mass or the acutely ill. [email or web address] eGFR 139 >=60 mL/min/1. 73 m?? [facility] Comment: The eGFR was calculated using the CKD-EPI equation. As with all creatinine based estimates of kidney function, eGFR values calculated with the CKD-EPI equation are not accurate in patients with acute kidney failure, extremes of body mass or the acutely ill. [email or web address] Blood specimen (specimen) 04/05/2018 1:39 AM EST 04/05/2018 2:16 AM EST Narrative Resulting Agency Comment Spec In Lab Babs Ribeiro MD CHEMISTRY ORDERABLES [facility] [place] [address] * MRI Total Spine wwo Contrast (04/04/2018 10:29 AM EST) Anatomical Region Laterality Modality C-spine, T-spine, L-spine Magnet ic Resonance Impressions 04/04/2018 3:44 PM EST 1. ??Multifocal nonexpansile T2 signal alteration within the cervical and thoracic cord, with 3 enhancing lesions in the cervical cord as above. Differential diagnosis includes demyelinating disease such as multiple sclerosis. MRI with and without contrast suggested of the brain.. 2. ??Disc extrusion T8-T9 with moderate central canal narrowing and moderate RIGHT T8-T9 subarticular recess narrowing, question possible caudad migration posterior to the mid T9 vertebral body. Preliminary report signed by: Guero Rowell MD at 04/04/2018 3:26 PM I have personally reviewed the image(s) and the residents interpretation and agree with the findings, John Hartman at 04/04/2018 3:44 PM Thank you for letting us participate in the care of this patient. For questions regarding this report, please contact the number below. ? Narrative 04/04/2018 3:44 PM EST EXAMINATION: MRI TOTAL SPINE WWO CONTRAST CLINICAL HISTORY: saddle anesthesia, difficulty urinating, numbness radiating from neck, more pronounced sensory level at t10 TECHNIQUE: MRI of the cervical, thoracic and lumbar spine was performed before and after the intravenous administration of 20cc Dotarem. COMPARISON: CT of the cervical thoracic and lumbar spine dated April 03, 2018. MR total spine dated September 22, 2014. FINDINGS: CERVICAL SPINE: There is mild straightening of the normal cervical lordosis is maintained part be positional. The vertebral body heights and disc spaces are well-maintained. Normal regional osseous marrow signal. Multiple foci of T2 signal alteration within the cervical spine, the longest lesion affects the posterior RIGHT lateral aspect of the cord and spans from the inferior endplate of C2 to the superior endplate of C4, approximately 2.8 cm in length with focal enhancement posterior to the C2-C3 disc space in the RIGHT posterior column (series 26 image 16). [place] segments of T2 prolongation with enhancement are seen within the anterolateral cord posterior to the C4 vertebral body (series 26 image 22), and involving the bilateral posterior columns posterior to the C6 vertebral body. Foci of T2 prolongation without enhancement are seen involving the RIGHT ventrolateral cord and RIGHT posterolateral cord at the mid C5 vertebral body (series 8 image 25) and involving the the RIGHT posterior lateral cord posterior to the C6 inferior endplate (series 8 image 31). THORACIC SPINE: Unchanged disc space height loss [...] aspect of T9 (series 9 image 10). The remaining thoracic vertebral body heights and disc spaces are maintained with normal alignment. Normal regional osseous marrow signal. Focal T2 signal alteration without enhancement within the RIGHT lateral aspect of the thoracic cord at the level of the T9-T10 disc space (series 100 image 40). LUMBAR SPINE: Unchanged degenerative T1 and T2 signal alteration at the L5-S1 disc, with mild posterior disc space height loss. The remaining vertebral body heights and disc spaces are preserved. Normal alignment of the lumbar spine. No areas of significant central canal or neural foraminal narrowing. Regional osseous marrow is normal in signal characteristics. The visualized cervical soft tissues, intrathoracic and intra-abdominal contents are unremarkable. No lesions within the visualized posterior fossa. Incidentally noted is nonspecific fluid signal within the LEFT mastoid air cell. Procedure Note John Hartman MD - 04/04/2018 EXAMINATION: MRI TOTAL SPINE WWO CONTRAST CLINICAL HISTORY: saddle anesthesia, difficulty urinating, numbnessradiating from neck, more pronounced sensory level at t10 TECHNIQUE: MRI of the cervical, thoracic and lumbar spine was performed before andafter the intravenous administration of 20cc Dotarem. COMPARISON: CT of the cervical thoracic and lumbar spine dated April 03, 2018. MRtotal spine dated September 22, 2014. FINDINGS: CERVICAL SPINE: There is mild straightening of the normal cervical lordosis is maintainedpart be positional. The vertebral body heights and disc spaces arewell-maintained. Normal regional osseous marrow signal. Multiple foci of T2 signal alteration within the cervical spine, thelongest lesion affects the posterior RIGHT lateral aspect of the cord and spansfrom the inferior endplate of C2 to the superior endplate of C4, approximately 2.8cm in length with focal enhancement posterior to the C2-C3 disc space in theRIGHT posterior column (series 26 image 16). [place] segments of T2 prolongationwith enhancement are seen within the anterolateral cord posterior to the [id number] body (series 26 image 22), and involving the bilateral posterior columns posterior to the C6 vertebral body. Foci of T2 prolongation without enhancement are seen involving the RIGHT ventrolateral cord and RIGHT posterolateral cord at the mid C5 vertebralbody (series 8 image 25) and involving the the RIGHT posterior lateral cordposterior to the C6 inferior endplate (series 8 image 31). THORACIC SPINE: Unchanged disc space height loss at T8-T9 with interval worsening of theRIGHT posterior lateral T8-T9 disc protrusion with foraminal extension and masseffect on the cord resulting in moderate central canal narrowing and moderateRIGHT T8-T9 subarticular recess narrowing. There is T2 prolongation within thedisc and postcontrast enhancement consistent with an acute on chronicprotrusion. Question caudad migration of a disc fragment inferior and along theposterior aspect of T9 (series 9 image 10). The remaining thoracic vertebral body heights and disc spaces aremaintained with normal alignment. Normal regional osseous marrow signal. Focal T2 signal alteration without enhancement within the RIGHT lateralaspect of the thoracic cord at the level of the T9-T10 disc space (series 100image 40). LUMBAR SPINE: Unchanged degenerative T1 and T2 signal alteration at the L5-S1 disc, withmild posterior disc space height loss. The remaining vertebral body heights and disc spaces are preserved.Normal alignment of the lumbar spine. No areas of significant central canal orneural foraminal narrowing. Regional osseous marrow is normal in signal characteristics. The visualized cervical soft tissues, intrathoracic and intra-abdominalcontents are unremarkable. No lesions within the visualized posterior fossa.Incidentally noted is nonspecific fluid signal within the LEFT mastoid air cell. IMPRESSION 1. Multifocal nonexpansile T2 signal alteration within the cervical and thoracic cord, with 3 enhancing lesions in the cervical cord as above. Differential diagnosis includes demyelinating disease such as multiple sclerosis. MRI with and without contrast suggested of the brain.. 2. Disc extrusion T8-T9 with moderate central canal narrowing andmoderate RIGHT T8-T9 subarticular recess narrowing, question possible caudadmigration posterior to the mid T9 vertebral body. Preliminary report signed by: Guero Rowell MD at 04/04/2018 3:26 PM I have personally reviewed the image(s) and the residents interpretationand agree with the findings, John Hartman at 04/04/2018 3:44 PM Thank you for letting us participate in the care of this patient. Forquestions regarding this report, please contact the number below. Guero Pagan MD IMG MRI ORDERABLES documented in this encounter Visit Diagnoses Diagnosis Multiple sclerosis- Primary Lower extremity numbness Disturbance of skin sensation Multiple sclerosis Gait instability Abnormality of gait Abnormal MRI, spinal cord Other nonspecific (abnormal) findings on radiological and other examinations of body structure Left lumbar radiculopathy Thoracic or lumbosacral neuritis or radiculitis, unspecified Right lumbar radiculopathy Thoracic or lumbosacral neuritis or radiculitis, unspecified Lower back pain Lumbago Abnormal brain MRI Nonspecific (abnormal) findings on radiological and other examination of skull and head Sensory impairment Lhermitte's sign positive Other abnormal clinical finding Gait instability Abnormality of gait Thoracic disc herniation Displacement of thoracic intervertebral disc without myelopathy documented in this encounter Admitting Diagnoses Diagnosis Abnormal MRI, spinal cord Other nonspecific (abnormal) findings on radiological and other examinations of body structure documented in this encounter Administered Medications Inactive Administered Medications - up to 3 most recent administrations Medication Order MAR Action Action Date Dose Rate Site acetaminophen (TYLENOL) tablet 650 mg 650 mg, Oral, EVERY 6 HOURS PRN, Starting on Mon04/04/18 at 2210, Until 04/07/18 at 1823, Pain, Fever, Administer for temperature greater than or equal to 38.2 degrees celsius. Maximum daily dose of acetaminophen from all sources not to exceed 4,000 mg., Routine Given 04/06/2018 5:13 AM EST 650 mg baclofen (LIORESAL) tablet 10 mg 10 mg, Oral, 3 TIMES DAILY, First dose (after last modification) on Mon04/06/18 at 1500, Until Discontinued, Routine Given 04/07/2018 2:45 PM EST 10 mg Given 04/07/2018 9:41 AM EST 10 mg Given 04/06/2018 9:29 PM EST 10 mg baclofen (LIORESAL) tablet 5 mg 5 mg, Oral, 3 TIMES DAILY, First dose on Mon04/05/18 at 1015, Until Discontinued, Routine Given 04/06/2018 8:43 AM EST 5 mg Given 04/05/2018 9:22 PM EST 5 mg Given 04/05/2018 4:01 PM EST 5 mg diazePAM (VALIUM) tablet 5 mg 5 mg, Oral, 2 TIMES DAILY PRN, Starting on Mon04/04/18 at 2210, Until Mon04/05/18 at 0956, muscle spasms, Routine Given 04/05/2018 12:09 AM EST 5 mg diazePAM (VALIUM) tablet 5 mg 5 mg, Oral, NIGHTLY PRN, Starting on Mon04/05/18 at 1000, Until Mon04/07/18 at 1823, muscle spasms, (This is pt's home medication, please give if pt requests it), Routine Given 04/06/2018 9:29 PM EST 5 mg gadoterate meglumine (DOTAREM) 0.5 mmol/mL (376.9 mg/mL) injection 0-100 mL 0-100 mL, Intravenous, ONCE PRN, 1 dose, Starting on Mon04/05/18 at 0116, Until Mon04/05/18 at 1738, Per Protocol, Radiology Contrast, Routine Given 04/05/2018 5:38 PM EST 19 mLs gadoterate meglumine (DOTAREM) 0.5 mmol/mL (376.9 mg/mL) injection 0.2 mL/kg/dose 0.2 mL/kg/dose, Intravenous, ONCE PRN, 1 dose, Starting on Mon04/04/18 at 1014, Until Mon04/04/18 at 0939, Per Protocol, Routine Given 04/04/2018 9:39 AM EST 2 0 mLs lidocaine (XYLOCAINE) 10 mg/mL (1 %) injection 200 mg 200 mg (20 mL), Subcutaneous, ONCE, 1 dose, On Mon04/05/18 at 1100, 20cc vial for LP, Routine Given 04/05/2018 11:00 AM EST 200 mg lidocaine (XYLOCAINE) 10 mg/mL (1 %) injection 3 mg 3 mg (0.3 mL), Subcutaneous, ONCE PRN, 1 dose, Starting on Mon04/04/18 at 2210, Until Mon04/06/18 at 1605, for discomfort with PIV insertion, Routine Given 04/06/2018 4:05 PM EST 3 mg methylphenidate HCl (RITALIN) tablet 20 mg 20 mg, Oral, 3 TIMES DAILY BEFORE MEALS, First dose on Mon04/04/18 at 2215, Until Discontinued, Routine Given 04/07/2018 12:32 PM EST 20 mg Given 04/07/2018 9:41 AM EST 20 mg Given 04/06/2018 12:55 PM EST 20 mg methylPREDNISolone sodium succinate (PF) (SOLU-Medrol) 1,000 mg in sodium chloride 0.9% 108 mL 1,000 mg, Intravenous, DAILY, 3 doses, First dose on Mon04/05/18 at 1100, Last dose on Mon04/07/18 at 0900, Administer over 30 Minutes New Bag 04/07/2018 9:42 AM EST 1,000 mg 216 mL/hr New Bag 04/06/2018 9:35 AM EST 1,000 mg 216 mL/hr New Bag 04/05/2018 12:33 PM EST 1,000 mg 216 mL/hr NIFEdipine (ADALAT CC) CR tablet 30 mg 30 mg, Oral, DAILY, First dose on Mon04/05/18 at 0900, Until Discontinued, DO NOT CRUSH OR OPEN HOLD for BP < 110, HR < 55, Routine Given 04/07/2018 9:54 AM EST 3 0 mg Given 04/06/2018 8:47 AM EST 30 mg Given 04/05/2018 8:37 AM EST 30 mg pantoprazole (PROTONIX) tablet 40 mg 40 mg, Oral, DAILY, First dose on Mon04/05/18 at 1000, Until Discontinued, DO NOT CRUSH OR OPEN Given 04/07/2018 9:41 AM EST 40 mg Given 04/06/2018 8:43 AM EST 40 mg Given 04/05/2018 12:29 PM EST 40 mg predniSONE (DELTASONE) tablet 10 mg 10 mg, Oral, DAILY, 3 doses, First dose on Mon04/23/18 at 0900, Last dose on Mon04/25/18 at 0900, Routine predniSONE (DELTASONE) tablet 20 mg 20 mg, Oral, DAILY, 3 doses, First dose on Mon04/20/18 at 0900, Last dose on Mon04/22/18 at 0900, Routine predniSONE (DELTASONE) tablet 30 mg 30 mg, Oral, DAILY, 3 doses, First dose on Mon04/17/18 at 0900, Last dose on Mon04/19/18 at 0900, Routine predniSONE (DELTASONE) tablet 40 mg 40 mg, Oral, DAILY, 3 doses, First dose on Mon04/14/18 at 0900, Last dose on Mon04/16/18 at 0900, Routine predniSONE (DELTASONE) tablet 50 mg 50 mg, Oral, DAILY, 3 doses, First dose on Mon04/11/18 at 0900, Last dose on Mon04/13/18 at 0900, Routine predniSONE (DELTASONE) tablet 60 mg 60 mg, Oral, DAILY, 3 doses, First dose on Mon04/08/18 at 0900, Last dose on Mon04/10/18 at 0900, Routine senna-docusate (PERICOLACE) 8.6-50 mg per tablet 2 tablet 2 tablet, Oral, 2 TIMES DAILY, First dose on Mon04/04/18 at 2230, Until Discontinued, Routine Given 04/06/2018 8:43 AM EST 2 tablets sodium chloride 0.9 % flush 5 mL 5 mL, Intravenous, 2 TIMES DAILY, First dose on Mon04/04/18 at 2230, Until Discontinued, Routine Given 04/07/2018 9:42 AM EST 5 mLs Given 04/06/2018 9:30 PM EST 5 mLs Given 04/06/2018 8:44 AM EST 5 mLs traMADol (ULTRAM) tablet 50 mg 50 mg, Oral, ONCE, 1 dose, On Mon04/04/18 at 1050, STAT Given 04/04/2018 10:50 AM EST 50 mg traMADol (ULTRAM) tablet 50 mg 50 mg, Oral, EVERY 4 HOURS PRN, Starting on Mon04/04/18 at 2210, Until Mon04/07/18 at 1823, Pain, Routine Given 04/07/2018 2:47 PM EST 50 mg Given 04/07/2018 9:56 AM EST 50 mg Given 04/06/2018 9:30 PM EST 50 mg traMADol (ULTRAM) tablet 50 mg 50 mg, Oral, ONCE, 1 dose, On Mon04/04/18 at 2101, STAT Given 04/04/2018 9:09 PM EST 50 mg documented in this encounter Active and Recently Administered Medications Times are shown in EST. Scheduled Medication Order 04/05/2018 04/06/2018 04/07/2018 baclofen (LIORESAL) tablet 10 mg 10 mg, Oral, 3 TIMES DAILY, First dose (after last modification) on Mon04/06/18 at 1500, Until Discontinued, Routine 1515 (Given - Provider: Nneka Villarreal RN)2129 (Given - Provider: Zahra Dean RN) 0941 (Given - Provider: Any Martin RN)1445 (Given - Provider: Any Martin RN) baclofen (LIORESAL) tablet 5 mg (CANCELED) 5 mg, Oral, 3 TIMES DAILY, First dose on Mon04/05/18 at 1015, Until Discontinued, Routine 1228 (Given - Provider: Rima Panchal RN)1601 (Given - Provider: Rima Panchal RN)2122 (Given - Provider: Henry Alvarado RN) 0843 (Given - Provider: Nneka Villarreal RN) lidocaine (XYLOCAINE) 10 mg/mL (1 %) injection 200 mg (COMPLETED) 200 mg (20 mL), Subcutaneous, ONCE, 1 dose, On Mon04/05/18 at 1100, 20cc vial for LP, Routine 1100 (Given - Provider: Rima Panchal RN - Comment: administered) lidocaine (XYLOCAINE) 10 mg/mL (1 %) injection 50 mg 50 mg (5 mL), Subcutaneous, ONCE, 1 dose, On Mon04/06/18 at 1630, Routine 1630 (Not Given - Provider: Nneka Villarreal RN - Reason: Transfer to a Procedural area) methylphenidate HCl (RITALIN) tablet 20 mg 20 mg, Oral, 3 TIMES DAILY BEFORE MEALS, First dose on Mon04/04/18 at 2215, Until Discontinued, Routine 0830 (Given - Provider: Rima Panchal RN)1229 (Given - Provider: Riam Panchal RN)1602 (Given - Provider: Rima Panchal RN) 0843 (Given - Provider: Nneka Villarreal RN)1255 (Given - Provider: Nneka Villarreal RN)1630 (Not Given - Provider: Nneka Villarreal RN - Reason: Patient/family refused - Comment: Pt refused due to timing) 0941 (Given - Provider: Any Martin RN)1232 (Given - Provider: Any Martin ANTONIO - Comment: Spaced out since last dose and okay to take now per pt report.) methylPREDNISolone sodium succinate (PF) (SOLU-Medrol) 1,000 mg in sodium chloride 0.9% 108 mL (COMPLETED) 1,000 mg, Intravenous, DAILY, 3 doses, First dose on Serina 04/05/18 at 1100, Last dose on 04/07/18 at 0900, Administer over 30 Minutes 1233 (New Bag - Provider: Rima Panchal RN)1303 (Stopped - Provider: Rima Panchal RN) 0935 (New Bag - Provider: Nneka Villarreal, ANTONIO)1005 (Stopped - Provider: Nneka Villarreal, ANTONIO) 0942 (New Bag - Provider: Any Martin, ANTONIO)1012 (Stopped - Provider: Any Martin, ANTONIO) NIFEdipine (ADALAT CC) CR tablet 30 mg 30 mg, Oral, DAILY, First dose on Serina 04/05/18 at 0900, Until Discontinued, DO NOT CRUSH OR OPEN HOLD for BP < 110, HR < 55, Routine 0837 (Given - Provider: Rima Panchal RN) 0847 (Given - Provider: Nneka Villarreal, ANTONIO) 0954 (Given - Provider: Any Martin, ANTONIO) pantoprazole (PROTONIX) tablet 40 mg 40 mg, Oral, DAILY, First dose on Serina 04/05/18 at 1000, Until Discontinued, DO NOT CRUSH OR OPEN 1229 (Given - Provider: Rima Panchal RN) 0843 (Given - Provider: Nneka Villarreal RN) 0941 (Given - Provider: Any Martin, ANTONIO) predniSONE (DELTASONE) tablet 10 mg(Linked Group 1) 10 mg, Oral, DAILY, 3 doses, First dose on Mon04/23/18 at 0900, Last dose on Mon04/25/18 at 0900, Routine predniSONE (DELTASONE) tablet 20 mg(Linked Group 1) 20 mg, Oral, DAILY, 3 doses, First dose on Mon04/20/18 at 0900, Last dose on Mon04/22/18 at 0900, Routine predniSONE (DELTASONE) tablet 30 mg(Linked Group 1) 30 mg, Oral, DAILY, 3 doses, First dose on Mon04/17/18 at 0900, Last dose on Mon04/19/18 at 0900, Routine predniSONE (DELTASONE) tablet 40 mg(Linked Group 1) 40 mg, Oral, DAILY, 3 doses, First dose on Mon04/14/18 at 0900, Last dose on Mon04/16/18 at 0900, Routine predniSONE (DELTASONE) tablet 50 mg(Linked Group 1) 50 mg, Oral, DAILY, 3 doses, First dose on Mon04/11/18 at 0900, Last dose on Mon04/13/18 at 0900, Routine predniSONE (DELTASONE) tablet 60 mg(Linked Group 1) 60 mg, Oral, DAILY, 3 doses, First dose on Mon04/08/18 at 0900, Last dose on Mon04/10/18 at 0900, Routine senna-docusate (PERICOLACE) 8.6-50 mg per tablet 2 tablet 2 tablet, Oral, 2 TIMES DAILY, First dose on Mon04/04/18 at 2230, Until Discontinued, Routine 899 (Not Given - Provider: Rima Panchal RN - Reason: Patient/family refused)2129 (Not Given - Provider: Henry Alvarado RN - Reason: Patient/family refused) 0843 (Given - Provider: Nneka Villarreal RN)2099 (Not Given - Provider: Zahra Dean RN - Reason: Patient/family refused) 0900 (Not Given - Provider: Any Martin RN - Reason: Patient/family refused) sodium chloride 0.9 % flush 5 mL 5 mL, Intravenous, 2 TIMES DAILY, First dose on Mon04/04/18 at 2230, Until Discontinued, Routine 0011 (Given - Provider: Erick Escalera RN)09 (Given - Provider: Rima Panchal RN)2128 (Given - Provider: Henry Alvarado RN) 0844 (Given - Provider: Nneka Villarreal RN)2130 (Given - Provider: Zahra Dean RN) 0942 (Given - Provider: Any Martin RN) PRN Medication Order 04/05/2018 04/06/2018 04/07/2018 acetaminophen (TYLENOL) tablet 650 mg 650 mg, Oral, EVERY 6 HOURS PRN, Starting on Mon04/04/18 at 2210, Until 04/07/18 at 1823, Pain, Fever, Administer for temperature greater than or equal to 38.2 degrees celsius. Maximum daily dose of acetaminophen from all sources not to exceed 4,000 mg., Routine 0513 (Given - Provider: Henry Alvarado RN) bisacodyl (DULCOLAX) suppository 10 mg 10 mg, Rectal, DAILY PRN, Starting on Mon04/04/18 at 2210, Until 04/07/18 at 1823, Constipation, Administer if needed per patient's routine or if no bowel movement within 48 hours to achieve: (1) One bowel movement every 48 hours, AND (2) Without straining. If multiple PRN bowel medications ordered, start with magnesium hydroxide, then bisacodyl. Multiple medications may be given concomitantly for constipation., Routine diazePAM (VALIUM) tablet 5 mg (CANCELED) 5 mg, Oral, 2 TIMES DAILY PRN, Starting on Mon04/04/18 at 2210, Until Serina 04/05/18 at 0956, muscle spasms, Routine 000 (Given - Provider: Erick Escalera RN) diazePAM (VALIUM) tablet 5 mg 5 mg, Oral, NIGHTLY PRN, Starting on Mon04/05/18 at 1000, Until 04/07/18 at 1823, muscle spasms, (This is pt's home medication, please give if pt requests it), Routine 2128 (Given - Provider: Zahra Dean RN) gadoterate meglumine (DOTAREM) 0.5 mmol/mL (376.9 mg/mL) injection 0-100 mL (COMPLETED) 0-100 mL, Intravenous, ONCE PRN, 1 dose, Starting on Mon04/05/18 at 0116, Until Mon04/05/18 at 1738, Per Protocol, Radiology Contrast, Routine 1737 (Given - Provider: Devon Merino) lidocaine (XYLOCAINE) 10 mg/mL (1 %) injection 3 mg (COMPLETED) 3 mg (0.3 mL), Subcutaneous, ONCE PRN, 1 dose, Starting on Mon04/04/18 at 2210, Until Mon04/06/18 at 1605, for discomfort with PIV insertion, Routine 1605 (Given - Provider: Chelo Owusu - Comment: Lot#[id number]. 12/2019) magnesium hydroxide (MILK OF MAGNESIA) oral suspension 10 mL 10 mL, Oral, DAILY PRN, Starting on Mon04/04/18 at 2210, Until 04/07/18 at 1823, Constipation, Administer if needed per patient's routine or if no bowel movement within 48 hours to achieve: (1) One bowel movement every 48 hours, AND (2) Without straining. If multiple PRN bowel medications ordered, start with magnesium hydroxide, then bisacodyl. Multiple medications may be given concomitantly for constipation., Routine sodium chloride 0.9 % flush 5-20 mL 5-20 mL, Intravenous, EVERY 1 MIN PRN, Starting on Mon04/04/18 at 2210, Until 04/07/18 at 1823, flush, Flush pertains to all indwelling lines. Flush per protocol found in the job aid using the link provided on this medication record., Routine traMADol (ULTRAM) tablet 50 mg 50 mg, Oral, EVERY 4 HOURS PRN, Starting on Mon04/04/18 at 2210, Until 04/07/18 at 1823, Pain, Routine 0841 (Given - Provider: Rima Panchal RN)2121 (Given - Provider: Henry Alvarado RN) 0513 (Given - Provider: Henry Alvarado RN)2129 (Given - Provider: Zahra Dean RN) 0956 (Given - Provider: Any Martin, ANTONIO)1447 (Given - Provider: Any Martin, ANTONIO) Linked Groups Order Group 1: predniSONE (DELTASONE) tablet 60 mgJump to med 60 mg, Oral, DAILY, 3 doses, First dose on Mon04/08/18 at 0900, Last dose on Mon04/10/18 at 0900, Routine Followed by predniSONE (DELTASONE) tablet 50 mgJump to med 50 mg, Oral, DAILY, 3 doses, First dose on Mon04/11/18 at 0900, Last dose on Mon04/13/18 at 0900, Routine Followed by predniSONE (DELTASONE) tablet 40 mgJump to med 40 mg, Oral, DAILY, 3 doses, First dose on 04/14/18 at 0900, Last dose on 04/16/18 at 0900, Routine Followed by predniSONE (DELTASONE) tablet 30 mgJump to med 30 mg, Oral, DAILY, 3 doses, First dose on 04/17/18 at 0900, Last dose on Serina 04/19/18 at 0900, Routine Followed by predniSONE (DELTASONE) tablet 20 mgJump to med 20 mg, Oral, DAILY, 3 doses, First dose on Mon04/20/18 at 0900, Last dose on 04/22/18 at 0900, Routine Followed by predniSONE (DELTASONE) tablet 10 mgJump to med 10 mg, Oral, DAILY, 3 doses, First dose on Mon04/23/18 at 0900, Last dose on Mon04/25/18 at 0900, Routine documented in this encounter Care Teams Decontamination Worker Relationship Specialty Start Date End Date Rodriguez Roberts MD [address] [place] [address] PCP - General 11/15/13 02/09/21 documented as of this encounter
--- OUTSIDE RECORDS SUMMARY | 2024-01-15 20:05 | XMS_ITS | Encounter Summary ---
Author Organization [facility] Address [facility] Melinda meyerиван [place] [address] Care Team Providers Care Human Resources Psychologist Name Role Phone Rodriguez Roberts MD Primary Care Provider Encounter Details Date Type Department Care Team (Latest Contact Info) Description 09/22/2014 12:30 PM EDT - 09/22/2014 12:34 PM EDT Hospital [place] [phone] CLIN[address], DR CASTRO Left lumbar radiculopathy Social History Tobacco Use [...] PM EST Office Visit Urology at [facility] [address] [place] [phone] Desean Coronado MD [facility] [place] [address] 01/22/2024 12:30 PM EST Office Visit Neurosurgery at [place] [address] [place] [address] Liudmila Oates [place] [address] 02/01/2024 12:00 PM EST Office [place] [address] Georgette Monae PA [facility] [place] [address] 05/30/2024 10:30 AM EDT Appointment [place] [phone] documented as of this encounter Procedures Procedure Name Priority Date/Time Associated Diagnosis Comments MRI LUMBAR SPINE WITHOUT CONTRAST Routine 09/22/2014 2:49 PM EDT Left lumbar radiculopathy documented in this encounter Results * MRI lumbar spine without contrast (09/22/2014 2:49 PM EDT) Anatomical Region Laterality Modality L-spine Magnetic Resonan ce 09/22/2014 2:49 PM EDT Impressions 09/22/2014 5:12 PM EDT IMPRESSION: Small right posterior paracentral disc extrusion and facet arthropathy contacting the right S1 nerve root, without significant change from prior exam. There is no visible left-sided nerve root impingement. Comment: The following findings are so common in people without low back pain that while we report there presence, they must be interpreted with caution and in context of the clinical situation (Reference- Carmelovik et al, Spine 2001). Findings: (Prevalence in patients without low back pain), disc degeneration (decreased T2 signal, height loss, bulge) (91%), disc T2-signal loss (83%), disc height loss (56%), disc bulge (64%), disc protrusion (32%), annular fissure (38%). This report was reviewed by Jovanny Muller at 09/22/2014 5:07 PM Film and interpretation reviewed by the attending Narrative 09/22/2014 5:12 PM EDT EXAMINATION: MR Lumbar Spine WO CLINICAL HISTORY: left lateral leg/foot pain/paresthesias, h/o small right L5-S1 HNP, several beats of clonus on exam TECHNIQUE: MRI of the lumbar spine was obtained without intravenous contrast. COMPARISON: Prior lumbar spine MR exam 10/14/2013 FINDINGS: The lumbar vertebral bodies demonstrate overall normal height and alignment. Bone marrow is normal in signal without evidence of fracture or marrow replacing lesion. ??The conus is normal in appearance, and terminates at L1-L2. Mild disc degenerative change with disc dehydration noted at L5-S1. Limited aqkej-vq-ztfz of the retroperitoneal structures demonstrates no focal abnormality. T12-L1: No evidence of disc herniation, spinal canal stenoses or neuroforaminal stenoses. L1-2: ??No evidence of disc herniation, spinal canal stenoses or neuroforaminal stenoses. L2-3: ??No evidence of disc herniation, spinal canal stenoses or neuroforaminal stenoses. L3-4: ??No evidence of disc herniation, spinal canal stenoses or neuroforaminal stenoses. L4-5: ??No evidence of disc herniation or spinal canal stenosis. Moderate facet arthropathy causes mild bilateral neural foraminal narrowing. L5-S1: Small right posterior paracentral disc extrusion, similar to prior exam and again causing impingement on the right S1 nerve root. Signal alteration within the posterior disc material may represent annular fissuring. Moderate facet arthropathy at this level produces moderate neural foraminal narrowing on the right. Procedure Note Jovanny Muller MD - 09/22/2014 EXAMINATION: MR Lumbar Spine WO CLINICAL HISTORY: left lateral leg/foot pain/paresthesias, h/o small rightL5-S1 HNP, several beats of clonus on exam TECHNIQUE: MRI of the lumbar spine was obtained without intravenouscontrast. COMPARISON: Prior lumbar spine MR exam 10/14/2013 FINDINGS: The lumbar vertebral bodies demonstrate overall normal height andalignment. Bone marrow is normal in signal without evidence of fracture or marrowreplacing lesion. The conus is normal in appearance, and terminates at L1-L2. Milddisc degenerative change with disc dehydration noted at L5-S1. Juqmuoryewcw-qc-pyti of the retroperitoneal structures demonstrates no focal abnormality. T12-L1: No evidence of disc herniation, spinal canal stenoses orneuroforaminal stenoses. L1-2: No evidence of disc herniation, spinal canal stenoses orneuroforaminal stenoses. L2-3: No evidence of disc herniation, spinal canal stenoses orneuroforaminal stenoses. L3-4: No evidence of disc herniation, spinal canal stenoses orneuroforaminal stenoses. L4-5: No evidence of disc herniation or spinal canal stenosis. Moderatefacet arthropathy causes mild bilateral neural foraminal narrowing. L5-S1: Small right posterior paracentral disc extrusion, similar to priorexam and again causing impingement on the right S1 nerve root. Signalalteration within the posterior disc material may represent annular fissuring.Moderate facet arthropathy at this level produces moderate neural foraminalnarrowing on the right. IMPRESSION IMPRESSION: Small right posterior paracentral disc extrusion and facet arthropathy contacting the right S1 nerve root, without significant change from priorexam. There is no visible left-sided nerve root impingement. Comment: The following findings are so common in people without low backpain that while we report there presence, they must be interpreted with cautionand in context of the clinical situation (Reference- Brittonk et al, [id number]). Findings: (Prevalence in patients without low back pain), discdegeneration (decreased T2 signal, height loss, bulge) (91%), disc T2-signal loss(83%), disc height loss (56%), disc bulge (64%), disc protrusion (32%), annularfissure (38%). This report was reviewed by Jovanny Muller at 09/22/2014 5:07 PM Film and interpretation reviewed by the attending Teodoro Pacheco MD IMG MRI ORDERABLES documented in this encounter Visit Diagnoses Diagnosis Left lumbar radiculopathy Thoracic or lumbosacral neuritis or radiculitis, unspecified documented in this encounter Care Teams Human Resources Psychologist Relationship Specialty Start Date End Date Rodriguez Roberts MD [address] [place] [address] PCP - General 11/15/13 02/09/21 documented as of this encounter
--- OUTSIDE RECORDS SUMMARY | 2024-01-15 20:05 | XMS_ITS | Encounter Summary ---
Author Organization [facility] Address [facility] [place] [address] Care Team Providers Care China Decorator Name Role Phone Rodriguez Roberts MD Primary Care Provider [phone] Encounter Details Date Type Department Care Team (Late st Contact Info) Description 02/06/2018 8:00 AM EST Ancillary [place] [address] Lucie Obrien MD [facility] [place] [address] Pain Social History Tobacco Use Types Packs/Day Years [...] 1:00 PM EST Office Visit Urology at [facility] [address] [place] [phone] Desean Coronado MD [facility] [place] [address] 01/22/2024 12:30 PM EST Office Visit Neurosurgery at [facility] [address] [place] [address] [place] [address] Liudmila [place] [address] 02/01/2024 12:00 PM EST [place] [address] Georgette Monae PA [facility] [place] [address] 05/30/2024 10:30 AM EDT [place] [address] Pending Results Name Type Priority Associated Diagnoses Date /Time Film Library- Storage Only pain Clinic C-Arm Imaging Storage Only Routine Pain 02/05/2018 4:27 PM EST documented as of this encounter Visit Diagnoses Diagnosis Pain Generalized pain documented in this encounter Care Teams China Decorator Relationship Specialty Start Date End Date Rodriguez Roberts MD [address] [place] [address] PCP - General 11/15/13 02/09/21 documented as of this encounter
--- OUTSIDE RECORDS SUMMARY | 2024-01-15 20:05 | XMS_ITS | Encounter Summary ---
Author Organization [facility] [place] [address] Care Team Providers Care Sash Installer Name Role Phone Rodriguez Roberts MD Primary Care Provider [phone] Encounter Details Date Type Department Care Team (Late st Contact Info) Description 07/24/2017 Notes [place] [phone] Miriam Reveles LNA Social History Tobacco Use Types Packs/Day Years [...] as of this encounter Progress Notes * Miriam Reveles LNA - 07/24/2017 2:49 PM EDT On July sent out Disk image back to patient. documented in this encounter Plan of Treatment Upcoming Encounters Date Type Department Care Team (Late st Contact Info) Description 01/19/2024 1:00 PM EST Office Visit Urology at [place] [facility] [address] [place] [phone] Desean Coronado MD [facility] [place] [address] 01/22/2024 12:30 PM EST Office Visit Neurosurgery at [facility] [address] [facility] [place] [address] Hema Escalante MD [address] [place] [address] Liudmila Oates PA [address] [place] [address] 02/01/2024 12:00 PM EST Office [place] [phone] Georgette Monae PA [facility] [place] [address] 05/30/2024 10:30 AM EDT Appointment [place] [address] documented as of this encounter Visit Diagnoses Not on filedocumented in this encounter Care Teams Sash Installer Relationship Specialty Start Date End Date Rodriguez Roberts MD [address] [place] [address] PCP - General 11/15/13 02/09/21 documented as of this encounter
--- OUTSIDE RECORDS SUMMARY | 2024-01-15 20:05 | XMS_ITS | Encounter Summary ---
Author Organization [facility] Address [facility] [place] [address] Care Team Providers Care Key Punch Operator Name Role Phone Rodriguez Roberts MD Primary Care Provider [phone] Reason for Visit * Reason Comments Dermatitis * Consultation (Routine) - Closed Specialty Diagnoses / Procedures Referred By Contac t Referred To Contact Dermatology Diagnoses vasculitic rash on abdomin Rodriguez Roberts MD [address] [place] [address] [facility] Dermatology [address] [place] [address] Referral ID Status Reason Start Date Expiration Date V isits Requested Visits Authorized [id number] Closed Consult, Test & Treat Connection Center 04/06/2015 04/05/2016 1 1 Encounter Details Date Type Department Care Team (Late st Contact Info) Description 05/19/2015 1:45 PM EDT Office Visit Dermatology at [facility] [address] [place] [phone] Jayro Otero MD [address] [facility] [place] [address] Dermatitis; Pain in joint, pain in unspecified joint; Chronic night sweats Social History Tobacco Use Types Packs/Day Years [...] PM EDT documented as of this encounter Patient Instructions * Patient Instructions* Sherine Urbina LPN - 05/19/2015 2:15 PM EDT Post-Biopsy Wound Care Instructions You have just had a skin biopsy. Wound care will be important to prevent infection and minimize scarring. ??? If there are sutures, do not get the wound soaking wet - e.g., immersed in a bath or swimming pool - for 96 hours. ??? Return to clinic for suture removal in 12-14 days. ??? Keep the wound clean. You may wash the wound with soapy water running over the wound. Do not scrub. ??? Apply antibiotic ointment - e.g., polysporin, neosporin, bacitracin or bactroban - or clean vaseline to the wound and cover with a bandaid 1-2 times a day. ??? Keep the wound dressed this way 24h a day until healed - typically 7-14 days, though healing times may vary depending on the size of the wound and the location. ??? Do not let the wound scab over or dry up, which may delay wound healing and more likely producea more apparent scar than will already be formed. ??? The site may be itchy for up to several weeks. ??? If you notice redness spreading out from the wound, thick white or yellow drainage, increased swelling, tenderness at the wound or have any other questions or problems about the biopsy, please contact the clinic immediately. If you have any questions, please contact the clinic during the day at . In the case of urgency after 5PM and on weekends, please call the hospital number and ask for the Traffic Incident Management Manager catalyst concentration operator. Pathology results may take 5-14 days depending on the number of stains that must be performed. If you do not hear back within 3 weeks of the biopsy, contact the clinic nurse or front end java developer during normal business hours for the results. documented in this encounter Progress Notes * Juan R Sherine Femi, DYNAMIC BALANCER SET UP WORKER - 05/19/2015 1:48 PM EDT Images from the original note were not included. DEPARTMENT DERMATOLOGY AT [facility] Dermatology At [facility] [address] [facility] [address] NEW PATIENT / CONSULT Reason for Referral: vasculitic rash on abdomen Date of Referral: 04-06-15 Referred by: Rodriguez Roberts Md [address] [place] [address] Chief Complaint: rash History of Present Illness Erick Chacon is a 29 y.o. male. Complains of an asymptomatic red-dotted rash that started on the right flank/abdomen and first noticed at the age of 18yo. Since then he has noticed similar red dots on the right medial thigh and right knee. No bleeding. No bleeding. Never been treated or biopsied. Requests a focused examination of affected areas only. Allergies No Known Allergies Medications ??? Ketamine (Bulk) 100 % Powd 10 [...] Tablet ??? traMADol (ULTRAM) 50 mg Tablet Review of Systems Significant for night sweats for two years and chronic, joint aches and sometimes swelling of the knees and elbows and morning stiffness of the hands and feet; no fevers, chills, night sweats, or fatigue and no other pertinent and acute changes in constitutional, other skin, HEENT, gastrointestinal, respiratory, cardiovascular, genitourinary, lymphatic, musculoskeletal, endocrine, neurologic, psychiatric, allergy/immunology systems upon specific queries. 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 Mood is appropriate and congruent with effect. Well developed, well- nourished in no apparent distress, alert and oriented to time, person, place and situation. Skin Type: II Patient was asked to disrobe to the level of comfort. Examination of the skin of the head - including the face, nose - neck, chest, abdomen, back, axillae, upper and lower extremities significant for ?? <1-1mm purple-red well-demarcated purpura agminated in an approximately 15x9cm area on the right flank and smaller clusters on the right medial thigh and right knee Images Photo(s) taken by Nicole Otero MD. with patient's verbal permission for use for clinical and education purposes. Figure A Procedure Punch Procedure Discussed with patient diagnostic options, including the risks and benefits of observation and biopsy, including but not limited to recurrence, cosmesis (scar, dyspigmentation, scar spread), pain, keloid/hypertrophic scar, bleeding, infection, hematoma, nerve damage, and bruising. Patient verbally understands and elects biopsy. Allergies See above Defibrillator or Pacemaker Denies Time Out Performed: Full Name, , and site(s) confirmed with patient Procedure (s) A. Punch Location (s) A. Right flank Pre-Operative Diagnosis A. Port wine stain v vascular nevus v vasculititis Anesthesia: 1% lidocaine+1:100,000 epinephrine Sterile Prep Alcohol Lesion biopsied with punch technique using a 4 mm punch. Wound edges approximated with simple interrupted 5-0 prolene. <1ml blood loss. No complications. Specimen(s): Placed in formalin and sent to Pathology for histologic examination. Post-op care: Vaseline, Pressure Dressing Post-operative pain: 0/10 Assessment and Plan Dermatitis Wound care instructions provided. No soaking baths or swimming for 96h. Wound care: Vaseline or antibiotic ointment, bandaid every 12-24h. Remove sutures in 12 -14 d Patient prefers to have sutures taken out closer to home with his primary care. Patient would like to receive phone call with results at [phone]. Multiple Joint Aches Recommend work-up by PCM for possible autoimmune etiology, such as lupus. Suggest HELEN, CBC, CMP, ESR, CRP and RF Night Sweats Recommend work-up by PCM for possible infectious or autoimmune etiology Additional suggested lab: Quantiferon Gold or PPD Follow-up: based on pathology patient will be called, also RTC as needed for worsening or new dermatitis. I am documenting this encounter acting as the scribe for and in the presence of Dr. Otero: SHERINE URBINA LPN I performed the above scribed service and agree with the accuracy of the documentation in this encounter. Jayro Otero MD [facility]AD Section of Dermatology [facility] documented in this encounter Plan of Treatment Upcoming Encounters Date Type Department Care Team (Late st Contact Info) Description 01/19/2024 1:00 PM EST Office Visit Urology at [address] [phone] Desean Coronado MD [facility] [place] [address] 01/22/2024 12:30 PM EST Office Visit Neurosurgery at [place] [address] Hema Escalante MD [facility] [place] [address] Liudmila Oates PA [address] [facility] [place] [address] 02/01/2024 12:00 PM EST [place] [phone] Georgette Monae PA [facility] [place] [address] 05/30/2024 10:30 AM EDT [place] [address] documented as of this encounter Procedures Procedure Name Priority Date/Time Associated Diagnosis Comments SPECIMEN TO PATHOLOGY (NON-OR) Routine 05/19/2015 2:28 PM EDT Dermatitis SURGICAL PATHOLOGY REPORT Routine 05/19/2015 2:28 PM EDT documented in this encounter Results * Surgical Pathology Report (05/19/2015 2:28 PM EDT) Final Diagnosis [id number] ?Location: [facility] The signing pathologist has (i) examined the relevant preparation(s) for the specimen(s) and (ii) rendered or confirmed the diagnosis(es). . ?Surgical Pathology DIAGNOSIS Skin, right flank, punch biopsy: - Ectatic blood vessels predominately involving the papillary dermis. See discussion. 05/20/15 DLD 05/22/15 Verified by: ? Asa BURGOS, Dillon Lawrence ?Dermatopathologist ?(Electronic Signature) The attending pathologist whose signature appears on this report has reviewed all diagnostic slides and has edited the gross and/or microscopic portion of the report in rendering the final pathologic diagnosis. DISCUSSION This could represent a form of vascular ectasia, such an an early stage in the evolution of an angiokeratoma. In addition to the ectatic blood vessels within the papillary dermis, there may be a subtle proliferation of blood vessels within the underlying dermis. This association may occur in some variants of angiokeratoma (e.g. angiokeratoma circumscriptum), however, another variant or syndromic association cannot be excluded. In the appropriate clinical setting, the differential diagnosis could include a capillary malformation or hamartoma. Clinicopathologic correlation is recommended. Multiple deeper levels have been examined. CLINICAL INFORMATION Specimen Submitted: A - Skin, right flank, punch (1) Clinical History: Purple purpura agminated approximately 15 cm x 9 cm area Clinical Diagnosis: Port wine stain versus vascular nevus versus vasculitis SPECIMEN PROCESSING A - Labeled/Fixative: Patient demographics, formalin. Quantity/Size: Single, 0.4 x 0.4 cm. Tissue Description: Punch of soft, mendez, telangiectatic skin; excised to a depth of 0.6 cm. Sections/Processing: Bisected. (T1) ??ksb 05/22/2015 3:08 PM EDT [facility] SPECIMEN FROM SKIN / Unknown 05/19/2015 2:28 PM EDT 05/19/2015 2:28 PM EDT Jayro Otero MD PATHOLOGY/CYTOLOGY O VINICIO Performing Organization Address [facility] [place] [address] * Specimen to Pathology (NON-OR) (05/19/2015 2:28 PM EDT) AP Specimen 05/19/2015 2:28 PM EDT 05/19/2015 6:27 PM EDT Narrative [facility] - 05/19/2015 6:27 PM EDT Specimen requisition ordered. ??Separate Pathology report to follow Resulting Agency Comment Spec In Lab Jayro Otero MD PATHOLOGY/CYTOLOGY O VINICIO Performing Organization Address [facility] [place] [address] documented in this encounter Visit Diagnoses Diagnosis Dermatitis Contact dermatitis and other eczema, due to unspecified cause Pain in joint, pain in unspecified joint Chronic night sweats Generalized hyperhidrosis documented in this encounter Care Teams Key Punch Operator Relationship Specialty Start Date End Date Rodriguez Roberts MD [address] [place] [address] PCP - General 11/15/13 02/09/21 documented as of this encounter
--- OUTSIDE RECORDS SUMMARY | 2024-01-15 20:06 | XMS_ITS | Encounter Summary ---
Author Organization [facility] [place] [address] Care Team Providers Care Merchandising Assistant Name Role Phone Rodriguez Roberts MD Primary Care Provider [phone] Encounter Details Date Type Department Care Team (Late st Contact Info) Description 08/26/2014 External Results [place] [address] Provider, Scanning Social History Tobacco Use Types Packs/Day Years [...] 1:00 PM EST Office Visit Urology at [facility] [address] [place] [phone] Desean Coronado MD [facility] [place] [address] 01/22/2024 12:30 PM EST Office Visit Neurosurgery at [facility] [address] [place] [phone] Hema Escalante MD [facility] [place] [address] [place] [address] 02/01/2024 12:00 PM EST [place] [phone] Georgette Monae PA [facility] [place] [address] 05/30/2024 10:30 AM EDT [place] [phone] documented as of this encounter Procedures Procedure Name Priority Date/Time Associated Diagnosis Comments MRI LUMBAR SPINE WITHOUT CONTRAST Routine 10/14/2013 documented in this encounter Results * MRI lumbar spine without contrast (10/14/2013) Anatomical Region Laterality Modality L-spine Magnetic Resonan ce Historical Provider MD CATES MRI ORDERABLE S documented in this encounter Visit Diagnoses Not on filedocumented in this encounter Care Teams Merchandising Assistant Relationship Specialty Start Date End Date Rodriguez Roberts MD [address] [place] [address] PCP - General 11/15/13 02/09/21 documented as of this encounter
--- OUTSIDE RECORDS SUMMARY | 2024-01-15 20:06 | XMS_ITS | Clinical Summary ---
Author Organization [facility] Address [address] [place] [address] Care Team Providers Care Manager Web Application Name Role Phone Unavailable Primary Care Provider Unavailabl e Social History Tobacco Use Types Packs/Day Years Used Date Smoking Tobacco: Never Assessed Sex and Gender Information Value Date Recorded Sex Assigned at Not on file Legal Sex Male 16:16 EDT Gender Identity Not on file Sexual Orientation Not on file Plan of Treatment Health Maintenance Due Date Last Done Comments Hepatitis C Screen 1984 Hepatitis B Vaccine (1 of 3 - 19+ 3-dose series) 11/09 COVID-19 Vaccine ( season) 2023
--- OUTSIDE RECORDS SUMMARY | 2024-01-15 20:06 | XMS_ITS | Referral Summary ---
Author Organization [facility] Address [address] [place] [address] Care Team Providers Care Research/Program Director Name Role Phone Unavailable Primary Care Provider Unavailabl e Social History Tobacco Use Types Packs/Day Years Used Date Smoking Tobacco: Never Assessed Sex and Gender Information Value Date Recorded Sex Assigned at Not on file Legal Sex Male 16:16 EDT Gender Identity Not on file Sexual Orientation Not on file Plan of Treatment Not on file
--- OUTSIDE RECORDS SUMMARY | 2024-01-15 20:06 | XMS_ITS | Encounter Summary ---
Author Organization [facility] [place] [address] Care Team Providers Care Show Jumping Instructor Name Role Phone Rodriguez Roberts MD Primary Care Provider [phone] Reason for Visit * Reason Comments Low Back Pain Left Leg Pain Left Foot Pain Encounter Details Date Type Department Care Team (Latest Contact Info) Description 08/25/2014 7:45 AM EDT Office [place] [address] Georgette Butler [facility] [place] [address] Left lumbar radiculopathy Discharge Disposition: Home Social History Tobacco Use [...] Sign Reading Time Taken Comments Blood Pressure 134/87 08/25/2014 9:15 AM EDT Pulse - - Temperature - - Respiratory Rate - - Oxygen Saturation - - Inhaled Oxygen Concentration - - Weight 93 kg (205 lb) 08/25/2014 9:15 AM EDT Height 175.3 cm (5' 9) 08/25/2014 9:15 AM EDT Body Mass Index 30.27 08/25/2014 9:15 AM EDT documented in this encounter Progress Notes * Georgette Butler, CONTRACT PROCESSOR - 08/25/2014 12:26 PM EDT CHIEF COMPLAINT: Pain in his left buttock with paresthesias in posterolateral left leg and lateral left foot. HISTORY OF PRESENT ILLNESS: Erick Chacon is a 28 y.o. male seen in the Sp[facility] Center today in consultation for Rodriguez Roberts MD (PCP). He arrives 45 minutes late to his appointment today and presents with a chief complaint of pain in his left buttock with paresthesias in posterolateral left leg and lateral left foot which increased in severity about 3 months ago following a series of lumbar epidural steroid injections. He had more mild sciatica prior to his injections that began insidiously about 1 year prior to those. His leg pain is most bothersome to him. He also complains of pain in right>left groins. His left knee feels as if it could give out on him at times. Treatments to date have included: He has had 3 LESIs this year with no relief. He has had some relief with MS Contin and tramadol but reports his PCP is weaning him off the MS Contin and the tramadolalone is not controlling his pain. Gabapentin-no relief. Prednisone-no relief. He has seen [facility] for a surgical consult and reports surgery was not recommended. REVIEW OF SYSTEMS: negative for any GI or symptoms, fevers, night sweats, chills, weight loss, saddle anesthesia or loss of bowel or bladder control. He denies myelopathic symptoms such as gait disturbance, gait imbalance, or difficulty with fine motor control. PAST MEDICAL HISTORY: Benign. PAST SURGICAL HISTORY: None. FAMILY HISTORY: Significant for heart disease in his grandfather and cancer. SOCIAL HISTORY: He does not smoke cigarettes and drinks alcohol once a month. 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 MEDICATIONS & ALLERGIES: reviewed with the patient and are in eD-H. PHYSICAL EXAMINATION: Height: 5'9. Weight: 205 lbs. BMI: 30.3. This is an overweight young adult male in no acute distress. He ambulates with a steady gait. He isable to walk on his heels and toes without weakness. He is able to perform tandem heel-toe walk without ataxia. He stands with relatively level shoulders, hips and knees. His lumbar spine is tender to palpation. His left sciatic notch is tender to palpation. Lumbar flexion & extension are painfu l. Extension is more painful than flexion. Straight leg raise increases hip pain bilaterally. Strength is 5/5 in all lower extremity muscles groups and bilateral EHLs with the exception of 5-/5 in left hip flexor. Touch sensation is diminished in left lateral lower leg and left lateral foot. Deep tendon reflexes are 2/4 at the knees and 2/4 at the ankles bilaterally. There is 2 beats of clonus atthe right ankle and 3 beats of clonus at the left ankle. Babinski is with down-going toes bilaterally. Chelo's reflex is absent bilaterally. Internal/External hip rotation is full and pain free bilaterally in sitting position. IMAGIN10/14/13 Lumbar MRI w/o contrast: Small right paracentral L5-S1 disc herniation with mild impingement upon the right S1 nerve root. ASSESSMENT: Left L5/S1 radicular symptoms. PLAN: Non-surgical treatment options including PT, NSAIDs, Functional Druze Program, Pain Clinic evaluation, and injections were reviewed with the patient. Will obtain thoracic and lumbar MRI w/o contrast given increase in symptoms and clonus on physical exam today. Follow-Up: Same day f/u after MRI for review of imaging findings and consideration of treatment options. All questions were answered and the patient is in agreement with the above treatment plan. This was a counseling dominated visit with approximately 25 minutes of this 40 minute encounter spent in face to face counseling, medical decision making, and review of imaging and treatment options. Thank you for the opportunity to participate in the care of this patient. Georgette Butler MS, SHANTELL, HOME APPLIANCE INSTALLER-C [facility] documented in this encounter Plan of Treatment Upcoming Encounters Date Type Department Care Team (Late st Contact Info) Description 01/19/2024 1:00 PM EST Office Visit Urology at [facility] [address] [place] [phone] Desean Coronado MD [facility] [place] [address] 01/22/2024 12:30 PM EST Office Visit Neurosurgery at [facility] [address] [place] [address] Hema Escalante MD [address] [place] [address] Liudmila Oates PA [facility] [place] [address] 02/01/2024 12:00 PM EST Office [place] [phone] Georgette Monae PA [facility] [place] [address] 05/30/2024 10:30 AM EDT [place]ointment [place] [phone] documented as of this encounter Results * MRI thoracic spine [...] attending Teodoro Pacheco MD IMG MRI ORDERABLES * MRI lumbar spine without contrast (09/22/2014 [...] with disc dehydration noted at L5-S1. Limited agnpp-du-qvqn of the retroperitoneal structures demonstrates no focal [...] change with disc dehydration noted at L5-S1. Aamccovxuzxx-qn-alzi of the retroperitoneal structures demonstrates no focal [...] the clinical situation (Reference- Carmelovik et al, [id number]). Findings: (Prevalence in patients without low back [...] Thoracic or lumbosacral neuritis or radiculitis, unspecified Left lumbar radiculopathy Thoracic or lumbosacral neuritis or radiculitis, unspecified Left lumbar radiculopathy Thoracic or lumbosacral neuritis or radiculitis, unspecified documented in this encounter Care Teams Show Jumping Instructor Relationship Specialty Start Date End Date Rodriguez Roberts MD [address] [place] [address] PCP - General 11/15/13 02/09/21 documented as of this encounter
--- OUTSIDE RECORDS SUMMARY | 2024-01-15 20:06 | XMS_ITS | Encounter Summary ---
Author Organization [facility] [place] [address] Care Team Providers Care Jira Administrator Name Role Phone Rodriguez Roberts MD Primary Care Provider Encounter Details Date Type Department Care Team (Late st Contact Info) Description 10/14/2013 Orders [place] [address] Georgette Butler APRN [facility] [place] [address] Social History Tobacco Use Types Packs/Day Years [...] 1:00 PM EST Office Visit Urology at [facility] [address] [place] [phone] Desean Coronado MD [facility] [place] [address] 01/22/2024 12:30 PM EST Office Visit Neurosurgery at [facility] [address] [place] [address] Hema Escalante MD [address] [place] [address] Liudmila Oates PA [place] [address] 02/01/2024 12:00 PM EST Office [place] [phone] Georgette Monae PA [facility] [place] [address] 05/30/2024 10:30 AM EDT Appointment [place] [phone] documented as of this encounter Procedures Procedure Name Priority Date/Time Associated Diagnosis Comments FILM LIBRARY STORAGE ONLY MR SPINE Routine 10/14/2013 10:16 AM EDT documented in this encounter Results * Film Library- Storage only MR Spine (10/14/2013 10:16 AM EDT) Anatomical Region Laterality Modality Other 10/14/2013 10:1 6 AM EDT Narrative 08/25/2014 10:21 AM EDT This is a Non-reportable exam Procedure Note AASHISH, UNSIGNED REPORT - 08/25/2014 This is a Non-reportable exam Georgette Butler [employer] E[employer] SERVICER IMG FILM LIBRARY ORDERABLES documented in this encounter Visit Diagnoses Not on filedocumented in this encounter Care Teams Jira Administrator Relationship Specialty Start Date End Date Rodriguez Roberts MD [address] [place] [address] PCP - General 11/15/13 02/09/21 documented as of this encounter
--- OUTSIDE RECORDS SUMMARY | 2024-01-15 20:06 | XMS_ITS | Encounter Summary ---
Author Organization [facility] [place] [address] Care Team Providers Care Feeder Switchboard Operator Name Role Phone Rodriguez Roberts MD Primary Care Provider [phone] Reason for Referral * Consultation (Routine) - Declined by Patient Specialty Diagnoses / Procedures Referred By Contac t Referred To Contact Pain Management Diagnoses Left lumbar radiculopathy Gloria Basurto [facility] [place] [address] [facility] [address] [place] [phone] Referral ID Status Reason Start Date Expiration Date Visits Requested Visits Authorized [id number] Declined by Patient Consult, Test & Treat 09/22/2014 09/22/2015 3 3 * Consultation (Routine) - Complete - Patient Scheduled Specialty Diagnoses / Procedures Referred By Contac t Referred To Contact Neurology Diagnoses Left lumbar radiculopathy Gloria Basurto TAXICAB DISPATCHER [facility] [place] [address] [facility] [address] [place] [phone] Referral ID Status Reason Start Date Expiration Date Visits Requested Visits Authorized [id number] Complete - Patient Scheduled Consult, Test & Treat 09/22/2014 09/22/2015 3 3 Reason for Visit * Reason Comments Follow-up Encounter Details Date Type Department Care Team (Latest Contact Info) Description 09/22/2014 3:40 PM EDT Office Visit Sp[facility] at [facility] [place] [phone] Gloria Basurto, TAXICAB DISPATCHER [facility] [place] [address] Left lumbar radiculopathy Discharge Disposition: Home Social History Tobacco Use Types Packs/Day Years Used Date Smoking Tobacco: Former Cigarettes Q uit: 04/25/2014 Smokeless Tobacco: Never Sex and Gender Information Value Date Recorded Sex Assigned at Male 06/03/2020 7:58 PM EDT Gender Identity Male 02/26/2022 11:00 AM EST Sexual Orientation Straight 06/03/2020 7: 58 PM EDT documented as of this encounter Progress Notes * Gloria Basurto, SHANTELL - 09/22/2014 4:17 PM EDT Subjective:Erick Valero Ines is here to review an MRI of the lumbar spine done to evaluate symptoms of left greater than right sole of foot pain and numbness. This was ordered by Darren chapman previous provider. He has a history of right sided radiculopathy and had symptoms of left-sidedradiculopathy for 2 years. He's had 3 injections without help. He also is taking gabapentin 900 mg a day which is made him dizzy. 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 He is currently being prescribed morphine by his primary care provider but he has a historyof alcoholism in his primary care provider is not particularly interested in continuing to prescribe this. He feels that this is the only thing that makes him functional. His symptoms are better withthe medications and worse when he is on his feet all day and he doesn't sleep per tickly well. He trips occasionally on his feet and he walks for exercise.. Since his last visit, symptoms have remained unchanged. Medications and allergies were updated. Objective: MRI of lumbar spine is reviewed in detail using the computer monitor. Findings were described in detail and explained to the patient's satisfaction. The findings are notable for right-sided S1 impingement consistent with disc bulge and virtually unchanged from prior MRI last year but no evidence of left- sided impingement to my eye.. The findings are not consistent with Hissymptoms of left greater than right foot pain. His exam is notable for reduced sharp dull testing but intact proprioception and vibratory sense.. Assessment: I'm questioning whether he may have some peripheral neuropathy. Plan: In view of Erick Chacon's symptoms of left greater than right foot pain and numbness inthe sole of foot and findings of MRI with right-sided S1 impingement but no left-sided impingement.We have discussed and agreed upon the following plan: EMG and nerve conduction study and follow-up with me to discuss this. He had also would like a referral to the pain clinic to discuss medications. I've discussed with him that I can't guarantee what they will tell him and they may tell him that he is not a good candidate for opiates because of his history of alcohol abuse. But he still would like to see them. I will follow-up after those appointments.. documented in this encounter Plan of Treatment Upcoming Encounters Date Type Department Care Team (Late st Contact Info) Description 01/19/2024 1:00 PM EST Office Visit [facility]rology at [facility] [address] [place] [phone] Desean Coronado MD [facility] [place] [address] 01/22/2024 12:30 PM EST Office Visit Neurosurgery at [facility] [address] [facility] [place] [phone] Hema Escalante MD [address] [place] [address] Liudmila Oates PA [address] [facility] [place] [place] [address] 02/01/2024 12:00 PM EST Office [place] [phone] Georgette Monae PA [facility] [place] [address] 05/30/2024 10:30 AM EDT Appointment [place] [phone] Scheduled Referrals Name Type Priority Associated Diagnoses Orde r Schedule Referral to Neurology Outpatient Referral Routine Left lumbar radiculopathy Ordered: 09/22/2014 Referral to Pain Clinic Outpatient Referral Routine Left lumbar radiculopathy Ordered: 09/22/2014 documented as of this encounter Visit Diagnoses Diagnosis Left lumbar radiculopathy Thoracic or lumbosacral neuritis or radiculitis, unspecified documented in this encounter Care Teams Feeder Switchboard Operator Relationship Specialty Start Date End Date Rodriguez Roberts MD [address] [place] [address] PCP - General 11/15/13 02/09/21 documented as of this encounter
--- OUTSIDE RECORDS SUMMARY | 2024-01-15 20:06 | XMS_ITS | Encounter Summary ---
Author Organization [facility] Address [address] [place] [address] Care Team Providers Care Dredge Master Name Role Phone Unavailable Primary Care Provider Unavailabl e Encounter Details Date Type Department Care Team (Late st Contact Info) Description 05/26/2022 Lab Requisition [facility] Pathology & Laboratory Medicine - [address] [address] Outr Resulting Lab, Provider Social History Tobacco Use Types Packs/Day Years Used Date Smoking Tobacco: Never Assessed Sex and Gender Information Value Date Recorded Sex Assigned at Not on file Legal Sex Male 16:16 EDT Gender Identity Not on file Sexual Orientation Not on file documented as of this encounter Plan of Treatment Not on file documented as of this encounter Procedures Procedure Name Priority Date/Time Associated Diagnosis Comments FUNGUS CULTURE/SMEAR Routine 05/26/2022 11:28 EDT documented in this encounter Results * FUNGUS CULTURE/SMEAR (05/26/2022 11:28 EDT) Organism ID No fungi isolated 06/23/2022 8:38 EDT [facility] Fungal Smear No Fungi Seen 06/23/2022 8:38 EDT [facility] Sputum COLLECTION OF INDUCED SPUTUM / Unknown 05/26/2022 11:28 EDT 05/26/2022 22:21 EDT us Provider Outr Resulting Lab MICROBIOLOGY - GENER AL ORDERABLES Final Result [facility] [address] [place] [address] documented in this encounter Visit Diagnoses Not on filedocumented in this encounter
== END 2024-01-15 20:32 | disposition home or self-care (01) ==
PROVIDERS: Emergency Provider Physician Assistant; PCP Family Medicine
DX: T85.898A Other specified complication of other internal prosthetic devices, implants and grafts, initial encounter (principal); G35 Multiple sclerosis; Z87.891 Personal history of nicotine dependence
CPT/HCPCS: 99283

== ENCOUNTER 2024-03-12 08:24 | Outpatient (CLI) | payer MEDICARE, MEDICAID, SELFPAY ==
--- NOTE | 2024-03-12 06:00 | DI.RAD_ITS ---
Exam(s) XR PAIN CLINIC LUMBAR SP 2V EXAM: XR PAIN CLINIC LUMBAR SP 2V CLINICAL HISTORY: Dx: Lumbar Radiculopathy TECHNIQUE: 2D and realtime digital imaging was performed. Radiologist not present. CONTRAST MATERIAL: None. COMPARISON: No exams were available for comparison FINDINGS: Fluoroscopy was provided for pain management therapy. Please refer to procedure report or details. Radiation Exposure Index: Ka,r=27 mGy IMPRESSION: As above. RADIATION DOSE DELIVERED:
[2024-03-12 08:35] VITALS: BP 127/89; PULSE 71; RESP 18; TEMP 36.5; O2SAT 97
--- NOTE | 2024-03-12 08:37 | PDOC.PAIN_ITS ---
Date of service: 03/12/24 Time of Service: 09:23 Pain Managment Procedure Note Procedure Note Procedure Note: Lumbar Transforaminal Epidural Steroid Injection ? Location: RIGHT L5 and S1 ? Pre-procedure Diagnosis: M54.17-Radiculopathy, lumbosacral region M54.16 Radiculopathy, lumbar region ? Post-procedure Diagnosis:? The same as above ? Sedation:? none ? Estimated blood loss:? less than 2 cc ? Surgeon:? Mahad Diaz MD COMMENT: Patient referred directly for transforaminal steroid injection from Dr Escalante. Disc herniation right side L5-S1 with S1 symptoms. Patient was previously seen in 2015 and had LESI at L5-S1 with catheter to the right for similar symptoms. ? Procedure Detail:?? The procedure and potential risks were explained to the patient and informed written consent was obtained. The patient was escorted to the procedure room and placed in the prone position. Pillows were utilized for proper positioning and comfort. Time out was performed in the procedure room with nursing staff confirming the patient's identity, procedure to be performed, allergies, and any blood thinning or anti-platelet medications. The patient's lower back was prepped with ChloraPrep and draped in a sterile fashion. Sterile gloves were used, a face mask was worn, and new single dose vials of all medications were used with the top being swabbed with alcohol and given time to dry prior to withdrawal of medication. A right-sided oblique fluoroscopic view was obtained, with visualization of L5-S1. Lidocaine 1% was used to anesthetize the skin. The tip of a 22-gauge, Quincke needle was advanced toward the 6 o'clock position of the superior pedicle at the target level.? It was advanced just under the pedicle to the neural foramen L5-S1. Correct needle placement was confirmed through review of the fluoroscopy. Next, following negative aspiration, 1cc's of Omnipaque 240 contrast was injected under live fluoroscopy which showed good flow throughout the epidural space and no evidence of vascular flow or flow into adjacent compartments. Next, following negative aspiration, 40mg Depo-Medrol and 0.5ml of 0.5% bupivacaine was injected. The needle was gently removed.? The procedure was also performed in the same fashion at the right S1 foramen.? The patient tolerated the procedure well.? Permanent images saved and recorded. Plan:? Follow up prn PAIN: PRE PROCEDURE 04/01 POST PROCEDURE COMMENT: Could repeat or would try interlaminar approach with a catheter at L5- S1.
[2024-03-12 08:55] VITALS: O2SAT 98
[2024-03-12 09:00] VITALS: O2SAT 97
[2024-03-12 09:10] VITALS: O2SAT 98
[2024-03-12] MEDS: Nerve Block Tray 1 EACH MC (09:22)
[2024-03-12] MEDS: Bupivacaine 0.5% Pres-Free 10 ML VIAL IJ (09:22)
[2024-03-12] MEDS: methylPREDNISolone ACETATE 40 MG/ML VIAL IJ (09:23)
[2024-03-12] MEDS: Omnipaque 240 MG/ML 50 ML BTL IJ (09:23)
== END 2024-03-12 08:25 | disposition home or self-care (01) ==
LOC: PC 08:24
PROVIDERS: PCP Family Medicine; Visit Provider Anesthesiology Pain Medicine
DX: M54.50 Low back pain, unspecified (principal); M54.17 Radiculopathy, lumbosacral region; M54.16 Radiculopathy, lumbar region
CPT/HCPCS: 00123; 64483; 64484; 72100; J0665; J1010; Q9967

== ENCOUNTER 2024-05-24 14:32 | Outpatient (CLI) | payer MEDICARE, MEDICAID, SELFPAY ==
[2024-05-24 14:56] LABS: Abs Immature Grans 0.01 10^3/uL (0.0-0.06); Absolute Basophil Count 0.04 10^3/uL (0.0-0.2); Absolute Eosinophil Count 0.08 10^3/uL (0.0-0.7); Absolute Lymphocyte Count 1.61 10^3/uL (1.2-3.4); Absolute Monocyte Count 0.55 10^3/uL (0.1-0.8); Absolute Neutrophil Count 2.87 10^3/uL (1.2-6.7); Basophils % 0.8 %; Eosinophils % 1.6 %; HCT 52.1 % (40.0-50.0); HGB 17.3 g/dL (13.5-17.5); Immature Grans % 0.2 %; Lymphocytes % 31.2 %; MCH 29.1 pg (27.0-33.0); MCHC 33.2 % (32.0-36.0); MCV 88 fL (80-95); MPV 11.3 fL (8.0-11.0); Monocytes % 10.7 %; Neutrophils % 55.5 %; Platelet Count 202 10^3/uL (130-400); RBC 5.95 10^6/uL (4.36-5.78); RDW-SD 41.1 fL; WBC 5.16 10^3/uL (4.4-10.8)
[2024-05-24 16:00] LABS: Vitamin D 25 Total 37 ng/mL (30-100)
[2024-05-24 16:17] LABS: ALT 36 U/L (16-63); AST 24 U/L (15-37); Albumin 4.2 g/dL (3.4-5.0); Alkaline Phosphatase 101 U/L (46-116); Bilirubin, Direct 0.2 mg/dL (0.0-0.2); Bilirubin, Total 0.9 mg/dL (0.2-1.0); Total Protein 7.8 g/dL (6.4-8.2)
[2024-05-27 08:48] LABS: IgA 350 mg/dL (85-499); IgG 1098 mg/dL (610-1616); IgM 82 mg/dL (35-242)
== END 2024-05-24 14:33 | disposition home or self-care (01) ==
LOC: LBO 14:33
PROVIDERS: Psychiatry & Neurology Neurology; PCP Family Medicine; Visit Provider Family Medicine
DX: G40.909 Epilepsy, unspecified, not intractable, without status epilepticus (principal); G35 Multiple sclerosis
CPT/HCPCS: 36415; 80076; 82306; 82784; 85025

== ENCOUNTER 2024-05-24 14:41 | Outpatient (CLI) | payer MEDICARE, MEDICAID, SELFPAY ==
--- NOTE | 2024-05-24 14:30 | DI.RAD_ITS ---
Exam(s) XR LUMBAR SPINE COMPLETE EXAM: XR LUMBAR SPINE COMPLETE CLINICAL HISTORY: low back pain, worsening; known HNP M54.9 DORSALGIA. TECHNIQUE: 2D digital imaging was performed of the lumbar spine. Five images were obtained. AP, la teral, right oblique, left oblique and L5-S1 spot views were obtained. COMPARISON: CR LUMBAR SPINE COMPLETE from 09/27/2013 FINDINGS: BONES: No fracture or destructive lesion. There are small endplate osteophytes throughout the lumbar spine. No facet hypertrophy identified. DISKS: Intervertebral disc spaces are maintained. ALIGNMENT: Lumbar spinal alignment is within normal limits. No spondylolysis or spondylolisthesis. SOFT TISSUE: Normal. IMPRESSION: There are mild degenerative changes seen in the lumbar spine. DATA REPOSITORY: RADIATION DOSE DELIVERED:
--- NOTE | 2024-05-24 14:30 | DI.RAD_ITS ---
Exam(s) XR HIP PELVIS ADULT BL EXAM: XR HIP PELVIS ADULT BL CLINICAL HISTORY: bilat hip pain M25.551 M25.552. TECHNIQUE: 2D digital imaging was performed of the pelvis and bilateral hips. Three images were obt ained. AP pelvis and lateral views of both hips were obtained. COMPARISON: No exams were available for comparison FINDINGS: BONES: No acute fracture is present. No bony destructive lesion is seen. JOINTS: No dislocation present. SOFT TISSUE: Normal. IMPRESSION: Unremarkable radiographs of bilat hips. Unremarkable radiographs of the pelvis DATA REPOSITORY: RADIATION DOSE DELIVERED:
== END 2024-05-24 15:01 ==
PROVIDERS: PCP Family Medicine; Visit Provider Family Medicine
DX: M51.362 Other intervertebral disc degeneration, lumbar region with discogenic back pain and lower extremity pain (principal); M25.551 Pain in right hip; M25.552 Pain in left hip
CPT/HCPCS: 36415; 73521; 80076; 82306; 82784; 72110; 85025

== ENCOUNTER 2024-06-25 18:34 | Outpatient (REF) | payer MEDICARE, MEDICAID, SELFPAY ==
[2024-07-02 06:13] LABS: Methylphenidate 1009 ng/mL (Cutoff: 10); Ritalinic Acid 7960 ng/mL (Cutoff: 50)
[2024-07-03 11:18] LABS: Codeine Negative ng/mL (Cutoff: 25); Dihydrocodeine 341 ng/mL (Cutoff: 25); Hydrocodone 249 ng/mL (Cutoff: 25); Hydromorphone 261 ng/mL (Cutoff: 25); Morphine Negative ng/mL (Cutoff: 25); Naloxone Negative ng/mL (Cutoff: 25); Norhydrocodone 1022 ng/mL (Cutoff: 25); Noroxycodone Negative ng/mL (Cutoff: 25); Noroxymorphone Negative ng/mL (Cutoff: 25); Opiates Interpretation Positive.
== END 2024-06-25 18:35 | disposition home or self-care (01) ==
LOC: LBN 18:34
PROVIDERS: PCP Family Medicine; Visit Provider Family Medicine
DX: Z79.899 Other long term (current) drug therapy (principal); F11.20 Opioid dependence, uncomplicated
CPT/HCPCS: 80360; 80361; 80362; 80365

== ENCOUNTER 2024-09-09 13:24 | Outpatient (CLI) | payer MEDICARE, MEDICAID, SELFPAY ==
[2024-09-09 14:14] LABS: Abs Immature Grans 0.01 10^3/uL (0.0-0.06); HCT 45.2 % (40.0-50.0); HGB 14.9 g/dL (13.5-17.5); Immature Grans % 0.2 %; MCH 28.3 pg (27.0-33.0); MCHC 33.0 % (32.0-36.0); MCV 86 fL (80-95); MPV 10.9 fL (8.0-11.0); Platelet Count 204 10^3/uL (130-400); RBC 5.26 10^6/uL (4.36-5.78); RDW 13.1 % (11.8-14.1); RDW-SD 40.5 fL; WBC 5.10 10^3/uL (4.4-10.8)
[2024-09-09 15:00] LABS: Anion Gap 5.0 mmol/L (3-11); BUN 27 mg/dL (7-18); CO2 30.0 mmol/L (21.0-32.0); Calcium 8.8 mg/dL (8.5-10.1); Chloride 106 mmol/L (98-107); Estimated GFR 111.42 (mL/min/1.73m2); Glucose 127 mg/dL (74-106); Potassium 4.4 mmol/L (3.5-5.1); Sodium 141 mmol/L (136-145)
[2024-09-09 15:03] LABS: INR 1.1 (0.9-1.1); PTT Activated 26.5 sec (20.6-30.2); Prothrombin Time 10.6 sec (9.1-11.1)
== END 2024-09-09 13:25 | disposition home or self-care (01) ==
LOC: LBO 13:26
PROVIDERS: PCP Family Medicine; Visit Provider Neurological Surgery
DX: M54.16 Radiculopathy, lumbar region (principal); D68.9 Coagulation defect, unspecified
CPT/HCPCS: 36415; 80048; 85025; 85610; 85730

== ENCOUNTER 2024-11-01 02:46 | Observation (INO) | payer MEDICARE, MEDICAID, SELFPAY ==
[2024-11-01] VITALS (55 sets, daily range): BP systolic 124–173; BP diastolic 70–110; PULSE 69–108; RESP 9–32; TEMP 36.3–37.1; O2SAT 92–100
--- NOTE | 2024-11-01 02:45 | RT.EKG_ITS ---
APPROVED REPORT Exam: Resting ECG Reason for Exam: chest pain Patient Location: E HR:77 bpm ECG Measurements Heart Rate 77 AXIS IA 180 P 43 QRSd 92 QRS -13 QT 350 T 8 QTc 395 Conclusion Sinus rhythm...normal P axis, V-rate 60- [address] segment or T wave abnormalities to suggest occlusive MO
[2024-11-01] MEDS: Aspirin 81 MG CHEW 324 MG CH (03:00)
[2024-11-01] MEDS: ACETAMINOPHEN 1,000 MG/100 ML BAG 400 MG IVPB (03:04)
[2024-11-01] MEDS: MYLANTA 30 ML, LIDOCAINE 2% VISCOUS UD 15 ML PO ×2 (03:05→05:35)
[2024-11-01 03:25] LABS: Abs Immature Grans 0.01 10^3/uL (0.0-0.06); HCT 48.9 % (40.0-50.0); HGB 15.9 g/dL (13.5-17.5); Immature Grans % 0.2 %; MCH 27.4 pg (27.0-33.0); MCHC 32.5 % (32.0-36.0); MCV 84 fL (80-95); MPV 10.8 fL (8.0-11.0); Platelet Count 219 10^3/uL (130-400); RBC 5.80 10^6/uL (4.36-5.78); RDW 13.2 % (11.8-14.1); RDW-SD 40.8 fL; WBC 6.24 10^3/uL (4.4-10.8)
[2024-11-01 03:27] LABS: INR 1.1 (0.9-1.1); PTT Activated 26.8 sec (20.6-30.2); Prothrombin Time 10.7 sec (9.1-11.1)
[2024-11-01 03:37] LABS: D-Dimer 198 ng/mlFEU (<500)
--- NOTE | 2024-11-01 03:37 | DI.RAD_ITS ---
Exam(s) XR CHEST 2V PA LATERAL EXAM: XR CHEST 2V PA LATERAL CLINICAL HISTORY: Chest pain. TECHNIQUE: 2D digital imaging was performed. COMPARISON: No exams were available for comparison FINDINGS: 2 views: Heart size is normal. The mediastinum is not widened. Lungs are clear. No infiltrates nor pleural effusions. IMPRESSION: No acute pulmonary findings. DATA REPOSITORY: RADIATION DOSE DELIVERED:
[2024-11-01 03:38] LABS: ALT 29 U/L (16-63); AST 28 U/L (15-37); Albumin 4.1 g/dL (3.4-5.0); Alkaline Phosphatase 89 U/L (46-116); Anion Gap 5.8 mmol/L (3-11); BUN 20 mg/dL (7-18); Bilirubin, Total 0.5 mg/dL (0.2-1.0); CO2 33.2 mmol/L (21.0-32.0); Calcium 9.2 mg/dL (8.5-10.1); Chloride 103 mmol/L (98-107); Estimated GFR 87.57 (mL/min/1.73m2); Glucose 102 mg/dL (74-106); Lipase 32 U/L (<78); Magnesium 2.0 mg/dL (1.8-2.4); Potassium 3.7 mmol/L (3.5-5.1); Sodium 142 mmol/L (136-145); Total Protein 7.9 g/dL (6.4-8.2)
--- NOTE | 2024-11-01 04:01 | DI.VRAD_ITS ---
PROCEDURE INFORMATION: Exam: XR Chest Exam date and time: 11/01/2024 3:33 AM Age: 38 years old Clinical indication: Chest pressure; Chest pain TECHNIQUE: Imaging protocol: Radiologic exam of the chest. Views: 2 views. COMPARISON: CR XR CHEST 2V PA LATERAL 06/07/2022 2:07 AM FINDINGS: Lungs: Clear. No consolidation or pulmonary edema. Pulmonary vasculature is normal in caliber. Pleural spaces: No pleural effusion or pneumothorax. Heart/Mediastinum: Heart size and cardiomediastinal contours are normal. Bones/joints: Unremarkable. IMPRESSION: No active disease in the chest. Dictated and Authenticated by: Yahaira Asher MD. Orderin Barbara Sauceda MD
--- NOTE | 2024-11-01 04:38 | ED.GENADUL_ITS ---
Discharge Plan Discharge Details Chief Complaint: Chest Pain Primary Care Provider: Lamont Owusu ED Provider: Komal Jimenez Home Meds and New Rx's Prescriptions: No Action Ocrevus 30 mg/mL solution 600 mg IV [id number] Patient Comments: Last infusion 11/2023 (DME) BD Regular Bevel Skyforest 18 gauge x 1 1/2 needle See Rx Instructions .ROUTE .MEDSUPPLY Qty: 1000 Patient Comments: USE 1 SYRINGE WEEKLY FOR INTRAMUSCULARLY TESTOSTERONE INJECTION Rx Instructions: As directed [place] [place] [BD SafetyGlide Needle] 18 gauge x 1 1/2 needle See Rx Instructions .ROUTE .MEDSUPPLY Qty: 100 Patient Comments: USE ONCE WEEKLY FOR TESTOSTERONE INJECTION Rx Instructions: As directed baclofen 10 mg tablet 10 mg PO TID (DME) Aerochamber Mini Spacer See Rx Instructions .ROUTE .MEDSUPPLY Qty: 1 0RF Rx Instructions: As directed buspirone 15 mg tablet 15 mg PO BID Qty: 180 3RF losartan 25 mg tablet 25 mg PO DAILY Qty: 90 4RF anastrozole 1 mg tablet 1 mg PO .week Qty: 12 3RF docusate sodium 100 mg capsule 100 mg PO DAILY Qty: 90 3RF gabapentin 600 mg tablet 600 mg PO BID Qty: 60 5RF polyethylene glycol 3350 [Miralax] 17 gram/dose powder 17 g PO DAILY Qty: 850 4RF sildenafil [Viagra] 100 mg tablet 100 mg PO DAILY PRN Rx Instructions: administer 30 minutes to 4 hours before activity testosterone cypionate 200 mg/mL oil 200 mg IM .Q14 gabapentin 400 mg capsule 400 mg PO TID Qty: 90 5RF naloxone [Narcan] 4 mg/actuation spray,non-aerosol 4 mg intranasal Q2M PRN (Reason: opioid overdose) Qty: 2 0RF Patient Comments: prn Rx Instructions: spray 1 dose into ONE nostril; alternate nostrils w each dose until help arrives albuterol sulfate [Ventolin HFA] 90 mcg/actuation HFA aerosol inhaler 2 puff inhalation QID PRN (Reason: shortness of breath or wheezing) Qty: 8.5 2RF diazepam 5 mg tablet 5 mg PO HS PRN (Reason: muscle spasm) Qty: 28 2RF tramadol 50 mg tablet 50 mg PO Q4H PRN MDD 3 Qty: 90 0RF tizanidine 4 mg tablet 4 mg PO BID PRN (Reason: muscle spasticity) Qty: 60 2RF oxycodone 5 mg tablet 5 mg PO BID MDD 2 tabs PRN (Reason: pain) Qty: 56 0RF methylphenidate HCl [Ritalin] 20 mg tablet 20 mg PO TID MDD 60mg Qty: 84 0RF hydrocodone bitartrate 30 mg tablet,oral only,ext.rel.24 hr 30 mg PO DAILY MDD 1 tab Qty: 28 0RF Patient Comments: Pt advised 20mg d/c. Now taking 30mg. TR HPI General Mode of arrival: ambulatory . Date/Time Provider Initiated Documentation: 11/01/24 02:47 . Limitations to Documentation: no limitations . Information obtained by: patient . HPI Narrative: 38yo M with hx MS, HTN, chronic back pain, presenting for chest pain. Pain started around 2330, substernal/epigastric, burning, and radiates up into his neck. It is worse with deep breathing. Some shortness of breath due to the pain when he takes a deep breath. Was at rest when the pain started. Has never had pain like this before. No recent trauma or injuries to the area. No lightheadedness. Is otherwise in his usual state of health with no fevers, chills, rash, nausea, vomiting, abdominal pain, back pain, numbness, weakness, or other concerns. Related Data Home Medications ?Medication ?Instructions ?Recorded ?Confirmed baclofen 10 mg tablet 10 mg PO TID 04/12/18 inhalational spacing device #1 ea 05/25/22 06/25/24 (Aerochamber Mini) anastrozole 1 mg tablet 1 mg PO .week #12 tabs 10/2311/01/24 buspirone 15 mg tablet 15 mg PO BID #180 tabs 10/2311/01/24 losartan 25 mg tablet 25 mg PO DAILY #90 tabs 05/1311/01/24 ocrelizumab 30 mg/mL intravenous 600 mg (20 mL) IV Q6M ONTHS 12/20/23 06/25/24 solution (Ocrevus) polyethylene glycol 3350 17 17 g PO DAILY #850 grams 1 02/23/23 11/01/24 gram/dose oral powder (Miralax) sildenafil 100 mg tablet (Viagra) 100 mg PO DAILY PRN 02/19/24 11/01/24 testosterone cypionate 200 mg/mL 200 mg IM .Q14 11/01/24 intramuscular oil gabapentin 400 mg capsule 400 mg PO TID #90 caps 03/1811/01/24 docusate sodium 100 mg capsule 100 mg PO DAILY #90 cap s 03/21/24 11/01/24 naloxone 4 mg/actuation nasal 4 mg intranasal Q2M PRN opioid 04/03/24 11/01/24 spray (Narcan) overdose #2 ea needle (disp) 18 G 18 gauge x 1 #1,000 ea 06/25/2408/14 1/2 (BD Regular Bevel Skyforest) safety needles 18 gauge x 1 1/2 #100 ea 06/25/2408/14 (BD SafetyGlide Needle) albuterol sulfate 90 mcg/actuation 2 puff inhalation Q ID PRN 06/28/24 11/01/24 aerosol inhaler (Ventolin HFA) shortness of breath or wheezing #8.5 grams diazepam 5 mg tablet 5 mg PO HS PRN muscle spasm #28 07/26/24 11/01/24 tab-caps tramadol 50 mg tablet 50 mg PO Q4H PRN #90 tab-cap s 08/26/24 11/01/24 gabapentin 600 mg tablet 600 mg PO BID #60 tabs 09/2611/01/24 tizanidine 4 mg tablet 4 mg PO BID PRN muscle spast icity 10/03/24 11/01/24 #60 tabs oxycodone 5 mg tablet 5 mg PO BID PRN pain #56 tab s 10/23/24 11/01/24 methylphenidate HCl 20 mg tablet 20 mg PO TID #84 tabs 10/25/24 11/01/24 (Ritalin) hydrocodone bitartrate 30 mg 30 mg PO DAILY #28 tabs 0 10/28/24 11/01/24 tablet,crush resist,extended rel. 24hr Previous Rx's ?Medication ?Instructions ?Recorded inhalational spacing device #1 ea 05/25/22 (Aerochamber Mini) anastrozole 1 mg tablet 1 mg PO .week #12 tabs 10/23 buspirone 15 mg tablet 15 mg PO BID #180 tabs 10/23 losartan 25 mg tablet 25 mg PO DAILY #90 tabs 05/13 ocrelizumab 30 mg/mL intravenous 600 mg (20 mL) IV Q6M ONTHS 12/20/23 solution (Ocrevus) polyethylene glycol 3350 17 17 g PO DAILY #850 grams 1 02/23/23 gram/dose oral powder (Miralax) gabapentin 400 mg capsule 400 mg PO TID #90 caps 03/18 docusate sodium 100 mg capsule 100 mg PO DAILY #90 cap s 03/21/24 naloxone 4 mg/actuation nasal 4 mg intranasal Q2M PRN opioid 04/03/24 spray (Narcan) overdose #2 ea albuterol sulfate 90 mcg/actuation 2 puff inhalation Q ID PRN 06/28/24 aerosol inhaler (Ventolin HFA) shortness of breath or wheezing #8.5 grams diazepam 5 mg tablet 5 mg PO HS PRN muscle spasm #28 07/26/24 tab-caps tramadol 50 mg tablet 50 mg PO Q4H PRN #90 tab-cap s 08/26/24 gabapentin 600 mg tablet 600 mg PO BID #60 tabs 09/26 tizanidine 4 mg tablet 4 mg PO BID PRN muscle spast icity 10/03/24 #60 tabs oxycodone 5 mg tablet 5 mg PO BID PRN pain #56 tab s 10/23/24 methylphenidate HCl 20 mg tablet 20 mg PO TID #84 tabs 10/25/24 (Ritalin) hydrocodone bitartrate 30 mg 30 mg PO DAILY #28 tabs 0 10/28/24 tablet,crush resist,extended rel. 24hr Allergies Allergy/AdvReac Type Severity Reaction Status Date / Time No Known Allergies Allergy Verified 11/01/24 02:51 General Stated Complaint: Chest Pain BRIDGETTE: 3 Review of Systems Narrative: see HPI Exam Narrative Exam Narrative: General: Alert, non-toxic, appears to be uncomfortable Head: Normocephalic, atraumatic Neck: Trachea midline, ?Neck supple. ENT: ?MMM.? No oropharygeal lesions or exudate. Cardiac: ?RRR, no murmurs appreciated. Equal radial pulses. Resp: No respiratory distress. CTAB. Abd: ?Soft, non-distended, nontender. Negative Muprhy's. : ?No suprapubic tenderness. Extremities: ?No deformities.? No peripheral edema. Neurologic: GCS 15. ? Moves all extremities freely against gravity Course Vital Signs Vital signs: Vital Signs Temperature 36.8 C 11/01/24 02:48 Pulse 79 11/01/24 02:48 Respiratory Rate 18 11/01/24 02:48 Blood Pressure 173/108 H 11/01/24 02:48 Pulse Oximetry 100 11/01/24 02:48 Temperature 36.8 C 11/01/24 02:48 Temperature Source Oral 11/01/24 02:48 Pulse 83 11/01/24 03:50 Pulse 83 11/01/24 03:50 Respiratory Rate 21 11/01/24 03:50 Respiratory Effort Short of Breath 11/01/24 02:53 Blood Pressure 130/91 H 11/01/24 03:46 Blood Pressure Mean 104 11/01/24 03:46 Pulse Oximetry 96 11/01/24 03:50 Pain Level 8 11/01/24 03:05 Lab/Test Results Lab/Test Results: Laboratory Tests Range/Units 11/01/24 02:58 WBC (4.4-10.8) 10^3/uL 6.24 RBC (4.36-5.78) 10^6/uL 5.80 H Hgb (13.5-17.5) g/dL 15.9 Hct (40.0-50.0) % 48.9 MCV (80-95) fL 84 MCH (27.0-33.0) pg 27.4 MCHC (32.0-36.0) % 32.5 RDW (11.8-14.1) % 13.2 Plt Count (130-400) 10^3/uL 219 MPV (8.0-11.0) fL 10.8 Immature Gran % % 0.2 Neutrophils % % 40.7 Lymphocytes % % 44.2 Monocytes % % 11.1 Eosinophils % % 3.0 Basophils % % 0.8 Nucleated RBC % (0.0-0.3) % 0.0 Absolute Neutrophils (1.2-6.7) 10^3/uL 2.54 Absolute Lymphocytes (1.2-3.4) 10^3/uL 2.76 Absolute Monocytes (0.1-0.8) 10^3/uL 0.69 Absolute Eosinophils (0.0-0.7) 10^3/uL 0.19 Absolute Basophils (0.0-0.2) 10^3/uL 0.05 PT (9.1-11.1) sec 10.7 INR (0.9-1.1) 1.1 APTT (20.6-30.2) sec 26.8 D-Dimer (<500) ng/mlFEU 198 Sodium (136-145) mmol/L 142 Potassium (3.5-5.1) mmol/L 3.7 Chloride (98-107) mmol/L 103 Carbon Dioxide (21.0-32.0) mmol/L 33.2 H Anion Gap (3-11) mmol/L 5.8 BUN (7-18) mg/dL 20 H Creatinine (0.70-1.30) mg/dL 1.1 Est GFR (CKD-EPI 2020) (mL/min/1.73m2) 87.57 Glucose (74-106) mg/dL 102 Calcium (8.5-10.1) mg/dL 9.2 Magnesium (1.8-2.4) mg/dL 2.0 Total Bilirubin (0.2-1.0) mg/dL 0.5 AST (15-37) U/L 28 ALT (16-63) U/L 29 Alkaline Phosphatase (46-116) U/L 89 Total Protein (6.4-8.2) g/dL 7.9 Albumin (3.4-5.0) g/dL 4.1 Lipase (<78) U/L 32 Medical Decision Making 38yo M with hx MS, HTN, chronic back pain, presenting for chest pain. Pain started around 2330, substernal/epigastric, burning, pleurtic, and radiates up into his neck. Tried valium at home with no improvement. No personal history of heart disease but does have uncle who had AL at age 47. Hypertensive on arrival, vital signs otherwise reassuring. No RUQ to suggest cholecystitis/chol edocolithiasis. Will give 325 of ASA for potential for ACS; IV tylenol and GI cocktail for pain. Considered nitro however pt is also on sildenafil. -EKG NSR, appropriate intervals, no ST segment or T wave abnormalities to suggest occlusive AL. -Labs reviewed as below, CBC reassuring with no leukocytosis or anemia, CMP with no actionable abnormalities, Mg normal, lipase not suggestive of pancreatitis, BNP not suggestive of heat failure, coags normal, dimer normal (would not further pursue pulmonary embolism or aortic dissection with CT scan) -CXR independently reviewed; no focal pneumonia or pneumothorax on my view, radiology read with no acute findings. -Initial troponin result delayed due to issue with analyzer in lab; resulted at ~ 0445 at 6 with one hour repeat resulting at roughly the same time stable at 5. Repeat vital signs with improved BP. On reassessment patient reports pain was much improved immediately after GI cocktail but has since returned; he requests a repeat dose which was ordered. Will also add carafate. Repeat EKG with no concerning changes. Pain not positional and no EKG changes or murmurs to suggest pericarditis. Given family history and ongoing pain, will send three hour troponin. Have been avoiding nitro d/t sildafenil but with ongoing pain discussed further with patient; he affirms repeatedly that he has not taken any in 'a very long time', he thinks not since he started taking testosterone, and certainly not within the past 24 hours. Given this, trialed dose of nitro with no effect on symptoms. 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 Unclear if this may be contributing to his symptoms. POCUS with very limited views however shows no large pericardial effusion or tamponade. Given this, discussed with [facility] cardiology Dr. Hogan who concurred with plan for formal echo; no other acute interventions or imaging indicated. Three hour troponin stable. Patient does continue to report some moderate pleuritic pain, waxing and waning in severity. Given significant family history and ongoing chest pain warrants hospital observation for further workup and management. Discussed with [facility] hospitalist Dr. Collins; pt accepted to medicine service. Awaiting orders and transfer to the floor. Medical Records Medical records reviewed: Yes I reviewed the patient's medical records. Lab Data Lab results reviewed: Yes I reviewed the patient's lab results. Labs: Laboratory Tests Range/Units 11/01/24 11/01/24 11/01/24 02:58 03:55 04:55 WBC (4.4-10.8) 10^3/uL 6.24 RBC (4.36-5.78) 10^6/uL 5.80 H Hgb (13.5-17.5) g/dL 15.9 Hct (40.0-50.0) % 48.9 MCV (80-95) fL 84 MCH (27.0-33.0) pg 27.4 MCHC (32.0-36.0) % 32.5 RDW (11.8-14.1) % 13.2 Plt Count (130-400) 10^3/uL 219 MPV (8.0-11.0) fL 10.8 Immature Gran % % 0.2 Neutrophils % % 40.7 Lymphocytes % % 44.2 Monocytes % % 11.1 Eosinophils % % 3.0 Basophils % % 0.8 Nucleated RBC % (0.0-0.3) % 0.0 Absolute Neutrophils (1.2-6.7) 10^3/uL 2.54 Absolute Lymphocytes (1.2-3.4) 10^3/uL 2.76 Absolute Monocytes (0.1-0.8) 10^3/uL 0.69 Absolute Eosinophils (0.0-0.7) 10^3/uL 0.19 Absolute Basophils (0.0-0.2) 10^3/uL 0.05 PT (9.1-11.1) sec 10.7 INR (0.9-1.1) 1.1 APTT (20.6-30.2) sec 26.8 D-Dimer (<500) ng/mlFEU 198 Sodium (136-145) mmol/L 142 Potassium (3.5-5.1) mmol/L 3.7 Chloride (98-107) mmol/L 103 Carbon Dioxide (21.0-32.0) mmol/L 33.2 H Anion Gap (3-11) mmol/L 5.8 BUN (7-18) mg/dL 20 H Creatinine (0.70-1.30) mg/dL 1.1 Est GFR (CKD-EPI 2020) (mL/min/1.73m2) 87.57 Glucose (74-106) mg/dL 102 Calcium (8.5-10.1) mg/dL 9.2 Magnesium (1.8-2.4) mg/dL 2.0 Total Bilirubin (0.2-1.0) mg/dL 0.5 AST (15-37) U/L 28 ALT (16-63) U/L 29 Alkaline Phosphatase (46-116) U/L 89 Troponin I (<or=76) ng/L 6 5 Cancelled NT-Pro-B Natriuret Pep (<300) pg/mL 5 Total Protein (6.4-8.2) g/dL 7.9 Albumin (3.4-5.0) g/dL 4.1 Lipase (<78) U/L 32 Range/Units 11/01/24 11/01/24 06:25 06:44 WBC (4.4-10.8) 10^3/uL RBC (4.36-5.78) 10^6/uL Hgb (13.5-17.5) g/dL Hct (40.0-50.0) % MCV (80-95) fL MCH (27.0-33.0) pg MCHC (32.0-36.0) % RDW (11.8-14.1) % Plt Count (130-400) 10^3/uL MPV (8.0-11.0) fL Immature Gran % % Neutrophils % % Lymphocytes % % Monocytes % % Eosinophils % % Basophils % % Nucleated RBC % (0.0-0.3) % Absolute Neutrophils (1.2-6.7) 10^3/uL Absolute Lymphocytes (1.2-3.4) 10^3/uL Absolute Monocytes (0.1-0.8) 10^3/uL Absolute Eosinophils (0.0-0.7) 10^3/uL Absolute Basophils (0.0-0.2) 10^3/uL PT (9.1-11.1) sec INR (0.9-1.1) APTT (20.6-30.2) sec D-Dimer (<500) ng/mlFEU Sodium (136-145) mmol/L Potassium (3.5-5.1) mmol/L Chloride (98-107) mmol/L Carbon Dioxide (21.0-32.0) mmol/L Anion Gap (3-11) mmol/L BUN (7-18) mg/dL Creatinine (0.70-1.30) mg/dL Est GFR (CKD-EPI 2020) (mL/min/1.73m2) Glucose (74-106) mg/dL Calcium (8.5-10.1) mg/dL Magnesium (1.8-2.4) mg/dL Total Bilirubin (0.2-1.0) mg/dL AST (15-37) U/L ALT (16-63) U/L Alkaline Phosphatase (46-116) U/L Troponin I (<or=76) ng/L 6 Cancelled NT-Pro-B Natriuret Pep (<300) pg/mL Total Protein (6.4-8.2) g/dL Albumin (3.4-5.0) g/dL Lipase (<78) U/L Quality:SDOH Health Related Social Needs: Health related social needs details none PFSH All Active Problems (Updated 06/03/24 @ 14:42 by Mahad Diaz MD) Bilateral hip pain (Acute) Sciatica of right side (Acute) Chronic pain syndrome (Chronic) Acne (Acute) Low libido (Acute) Constipation (Acute) Acute pain associated with herpes zoster (Acute) Peripheral edema (Acute) Vitamin D deficiency (Acute) Thoracic disc herniation (Chronic 10/31/14) Raynaud's phenomenon without gangrene (Chronic 01/29/16) Family history of cardiovascular disease (Chronic) HYPERTENSION Back pain (Chronic 08/12/14) Lumbar disc displacement without myelopathy (Chronic) Medical History (Updated 06/03/24 @ 14:42 by Mahad Diaz MD) Hypogonadism male Acquired buried penis Erectile dysfunction Peyronie disease Thoracic disc disease Gait instability Lhermitte sign positive Sensory impairment Abnormal MRI, spinal cord Abnormal brain MRI Angiokeratoma circumscriptum Lower back pain Mold exposure Multiple sclerosis Diagnosed by [facility] Neurology. Demyelinating lesions spinal cord and brain Fibromyalgia (11/03/15) Depressive disorder Attention deficit hyperactivity disorder, combined type (03/02/12) Lumbar radiculopathy Surgical History No significant past surgical history Family History Other Family history of cardiovascular disease Social History (Updated 02/19/24 @ 10:42 by Alysa Sanches) Smoking/Tobacco Use Status: Former Tobacco Use Quit Date: 06/30/23 Smokeless tobacco user: other Quit status: has quit before Second Hand Exposure: Yes Smoking risk assessment performed?: Yes Alcohol Intake: never Drug use: Rarely Substance use type: marijuana Adopted: No Caregiver/Support person: No Foster care: No Household members: family Housing: other Details: [facility] Number of Children: 0 number of grandchildren: 0 Communication Needs: None Education Level: high school Do you need help understanding health information?: Rarely 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 Pets and animals: Yes Pets and animals: cat(s) Sexually active: Yes Do you think of yourself as: straight/heterosexual Current gender identity: male What is your relationship status?: never How often do you talk on the phone with friends or family?: once per week How often do you attend jew or baptist services?: decline to answer Do you belong to any clubs or organized social groups?: no Panel score (0-1 are the most socially isolated patients): 0 What type of physical activity do you participate in: walking and weight lifting Duration: 15-30 minutes/day Frequency: 3-4 times per week Erica/Zoroastrian: Congregation Special erica needs: No Agree to transfusion: Yes Seatbelt use: always Helmet use: Yes Helmet use: sometimes Drive intox or ride w/intox water tanker driver: No Working smoke detector in home: Yes Carbon monox detector in home: Yes Firearms in home: Yes Do you feel safe at home: Yes Do you feel safe in your relationship?: Yes Victim of physical abuse: No Victim of emotional abuse: No Victim of sexual abuse: No Would you like helpful sources: No POCUS Exam (ED) Limited Cardiac Exam DATE OF EXAM: 11/01/24 TIME OF EXAM: 05:28 REASON FOR EXAM: Chest pain VISUALIZED STRUCTURES: Four Chambers and Interventricular septum VIEW OBTAINED: Parasternal long-axis and Parasternal short-axis PERTINENT FINDINGS/IMPRESSION: Other Limited views; no cardiac tamponade or large pericardial effusion. ? small effusion Exam complete
[2024-11-01 04:39] LABS: NT-proBNP 5 pg/mL (<300); Troponin I 6 ng/L (<or=76)
--- NOTE | 2024-11-01 04:45 | RT.EKG_ITS ---
APPROVED REPORT Exam: Resting ECG Reason for Exam: chest pain Patient Location: E HR:80 bpm ECG Measurements Heart Rate [address] 182 P 53 QRSd 94 QRS -1 QT 347 T 4 QTc 401 Conclusion Sinus rhythm...normal P axis, V-rate 60- [address] segment or T wave abnormalities to suggest occlusive CA
[2024-11-01 04:51] LABS: Troponin I 5 ng/L (<or=76)
[2024-11-01] MEDS: Sucralfate 1 GM TAB PO (05:28)
[2024-11-01 07:05] LABS: Troponin I 6 ng/L (<or=76)
--- NOTE | 2024-11-01 07:52 | W.PM.HP.N ---
Date of service: 11/01/24 Time of Service: 07:15 Assessment and Plan Assessment and plan (1) Chest pain at rest: Status: Acute Assessment and plan: Unremarkable EKG, negative troponin Will trend troponin and do cardiac monitoring overnight Echocardiogram in the morning (2) Attention deficit hyperactivity disorder, combined type: Assessment and plan: Continue home regimen (3) Anxiety, generalized: Status: Acute Assessment and plan: Continue home regimen (4) Hypogonadism male: Assessment and plan: Discussed cardiac risks of T supplementation and hypercoagulability with anastrozole Patient unaware of these risks (5) Chronic back pain greater than 3 months duration: Status: Acute Assessment and plan: Continue home regimen (6) Multiple sclerosis: Assessment and plan: Noted History of Present Illness History of Present Illness Chief Complaint: chest pain Narrative: Erick Chacon is a 38 year old man presenting November 01 with chest pain starting around 23:30 the previous night. He reported that the pain started at the top of his stomach, in the center of his chest, radiating up his left neck, and became worse with breathing, with movement and with drinking water. He has never had pain like this before. No shortness of breath, no abdominal pain, no N/V/D. In the ED his EKG, troponin and CXR were unremarkable. He was admitted for observation out of concern for ACS/angina, pending echocardiogram. PMH includes multiple sclerosis on ocrelizumab. ADHD on methylphenidate. Anxiety on buspirone. HTN on losartan. Chronic back pain with opioid use disorder and benzodiazepine use disorder on baclofen, diazepam, long acting hydrocodone, oxycodone, tramadol, gabapentin, tizanidine. Low T on testosterone and anastrazole. PFSH All Active Problems (Updated 11/07/24 @ 12:35 by Jelani Collins MD) Chronic back pain greater than 3 months duration (Acute) Anxiety, generalized (Acute) Chest pain at rest (Acute) Bilateral hip pain (Acute) Sciatica of right side (Acute) Chronic pain syndrome (Chronic) Acne (Acute) Low libido (Acute) Constipation (Acute) Acute pain associated with herpes zoster (Acute) Peripheral edema (Acute) Vitamin D deficiency (Acute) Thoracic disc herniation (Chronic 10/31/14) Raynaud's phenomenon without gangrene (Chronic 01/29/16) Family history of cardiovascular disease (Chronic) HYPERTENSION Back pain (Chronic 08/12/14) Lumbar disc 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 Demyelinating lesions spinal cord and brain Fibromyalgia (11/03/15) Depressive disorder Attention deficit hyperactivity disorder, combined type (03/02/12) Lumbar radiculopathy Surgical History No significant past surgical history Family History Other Family history of cardiovascular disease Social History (Updated 02/19/24 @ 10:42 by Alysa Sanches) Smoking/Tobacco Use Status: Former Tobacco Use Quit Date: 06/30/23 Smokeless tobacco user: other Quit status: has quit before Second Hand Exposure: Yes Smoking risk assessment performed?: Yes Alcohol Intake: never Drug use: Rarely Substance use type: marijuana Adopted: No Caregiver/Support person: No Foster care: No Household members: family Housing: house Number of Children: 0 number of grandchildren: 0 Communication Needs: None Education Level: high school Do you need help understanding health information?: Rarely 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 Pets and animals: Yes Pets and animals: cat(s) Sexually active: Yes Do you think of yourself as: straight/heterosexual Current gender identity: male What is your relationship status?: never How often do you talk on the phone with friends or family?: once per week How often do you attend yarsanism or religion services?: decline to answer Do you belong to any clubs or organized social groups?: no Panel score (0-1 are the most socially isolated patients): 0 What type of physical activity do you participate in: walking and weight lifting Duration: 15-30 minutes/day Frequency: 3-4 times per week Erica/Roman Catholic: Tenriism Special erica needs: No Agree to transfusion: Yes Seatbelt use: always Helmet use: Yes Helmet use: sometimes Drive intox or ride w/intox frontload driver: No Working smoke detector in home: Yes Carbon monox detector in home: Yes Firearms in home: Yes Do you feel safe at home: Yes Do you feel safe in your relationship?: Yes Victim of physical abuse: No Victim of emotional abuse: No Victim of sexual abuse: No Would you like helpful sources: No Meds Allergies and Home Medications Allergies Allergy/AdvReac Type Severity Reaction Status Date / Time No Known Allergies Allergy Verified 11/01/24 02:51 Home Medications ?Medication ?Instructions ?Recorded ?Confirmed ?Type baclofen 10 mg tablet 10 mg PO TID 04/12/18 11/01/24 History inhalational spacing device #1 ea 05/25/22 06/25/24 Rx (Aerochamber Mini) anastrozole 1 mg tablet 1 mg PO .week #12 tabs 10/24/23 11/01/24 Rx buspirone 15 mg tablet 15 mg PO BID #180 tabs 10/24/23 11/01/24 Rx losartan 25 mg tablet 25 mg PO DAILY #90 tabs 10/24/23 11/01/24 Rx ocrelizumab 30 mg/mL intravenous 600 mg (20 mL) IV [id number] 12/20/23 06/25/24 Rx solution (Ocrevus) polyethylene glycol 3350 17 17 g PO DAILY #850 grams 12/25/23 11/01/24 Rx gram/dose oral powder (Miralax) testosterone cypionate 200 mg/mL 200 mg IM .Q14 02/19/24 11/01/24 History intramuscular oil gabapentin 400 mg capsule 400 mg PO TID #90 caps 03/18/24 11/01/24 Rx docusate sodium 100 mg capsule 100 mg PO DAILY #90 caps 03/21/24 11/01/24 Rx naloxone 4 mg/actuation nasal 4 mg intranasal Q2M PRN opioid 04/03/24 11/01/24 Rx spray (Narcan) overdose #2 ea needle (disp) 18 G 18 gauge x 1 #1,000 ea 06/25/24 06/25/24 History 1/2 (BD Regular Bevel Winthrop) safety needles 18 gauge x 1 1/2 #100 ea 06/25/24 06/25/24 History (BD SafetyGlide Needle) albuterol sulfate 90 mcg/actuation 2 puff inhalation QID PRN 06/28/24 11/01/24 Rx aerosol inhaler (Ventolin HFA) shortness of breath or wheezing #8.5 grams diazepam 5 mg tablet 5 mg PO HS PRN muscle spasm #28 07/26/24 11/01/24 Rx tab-caps tramadol 50 mg tablet 50 mg PO Q4H PRN #90 tab-caps 08/26/24 11/01/24 Rx gabapentin 600 mg tablet 600 mg PO BID #60 tabs 09/26/24 11/01/24 Rx tizanidine 4 mg tablet 4 mg PO BID PRN muscle spasticity 10/03/24 11/01/24 Rx #60 tabs oxycodone 5 mg tablet 5 mg PO BID PRN pain #56 tabs 10/23/24 11/01/24 Rx methylphenidate HCl 20 mg tablet 20 mg PO TID #84 tabs 10/25/24 11/01/24 Rx (Ritalin) hydrocodone bitartrate 30 mg 30 mg PO DAILY #28 tabs 10/28/24 11/01/24 Rx tablet,crush resist,extended rel. 24hr Exam Narrative Exam Narrative: General: This is a pleasant man in no distress HEENT: Normocephalic, atraumatic CV: RRR, no murmur, no edema Resp: CTAB Abd: soft, NTND, no tenderness to palpation MSK: voluntary motion x4 Neuro: awake, alert, no focal deficits Results Labs 11/01/24 02:58 11/01/24 02:58 Labs: Laboratory Results - last 24 hr 11/01/24 11/01/24 11/01/24 02:58 03:55 04:55 WBC 6.24 RBC 5.80 H Hgb 15.9 Hct 48.9 MCV 84 MCH 27.4 MCHC 32.5 RDW 13.2 Plt Count 219 MPV 10.8 Immature Gran % 0.2 Neutrophils % 40.7 Lymphocytes % 44.2 Monocytes % 11.1 Eosinophils % 3.0 Basophils % 0.8 Nucleated RBC % 0.0 Absolute Neutrophils 2.54 Absolute Lymphocytes 2.76 Absolute Monocytes 0.69 Absolute Eosinophils 0.19 Absolute Basophils 0.05 PT 10.7 INR 1.1 APTT 26.8 D-Dimer 198 Sodium 142 Potassium 3.7 Chloride 103 Carbon Dioxide 33.2 H Anion Gap 5.8 BUN 20 H Creatinine 1.1 Est GFR (CKD-EPI 2021) 87.57 Glucose 102 Calcium 9.2 Magnesium 2.0 Total Bilirubin 0.5 AST 28 ALT 29 Alkaline Phosphatase 89 Troponin I 6 5 Cancelled NT-Pro-B Natriuret Pep 5 Total Protein 7.9 Albumin 4.1 Lipase 32 11/01/24 11/01/24 06:25 06:44 WBC RBC Hgb Hct MCV MCH MCHC RDW Plt Count MPV Immature Gran % Neutrophils % Lymphocytes % Monocytes % Eosinophils % Basophils % Nucleated RBC % Absolute Neutrophils Absolute Lymphocytes Absolute Monocytes Absolute Eosinophils Absolute Basophils PT INR APTT D-Dimer Sodium Potassium Chloride Carbon Dioxide Anion Gap BUN Creatinine Est GFR (CKD-EPI 2020) Glucose Calcium Magnesium Total Bilirubin AST ALT Alkaline Phosphatase Troponin I 6 Cancelled NT-Pro-B Natriuret Pep Total Protein Albumin Lipase Last Vital Signs Temp 36.8 C 11/01/24 02:48 Pulse 89 11/01/24 07:34 Resp 15 11/01/24 07:34 BP 129/77 11/01/24 07:34 Pulse Ox 95 11/01/24 07:34 Time Spent Time spent with Patient: 40-54 minutes Time was spent: preparing to see the patient(eg.review tests), obtaining and/or reviewing separately otained hiistory, ordering medications,tests, procedures, referring, communicating with other health urgent care, indepentently interpreting results, counseling the patient and care coordination
[2024-11-01 08:21] LABS: Cannabinoids THC Negative (Negative); METHADONE URINE SCREEN Negative (Negative)
--- NOTE | 2024-11-01 08:46 | W.PC.ACHO ---
Registration Status: ADM ENDER Primary Language: Preferred Language: Latvian ED Information & Data Chief Complaint Chest Pain 11/01/24 04:38 Triage Note PT states that he has chest 11/01/24 02:48 pain with SOB that started at 2330. PT states that it radiates up his neck Medical / Surgical History (Last Reviewed 03/12/24 @ 08:38 by Arlin Johnson, RN) Hypogonadism male Acquired buried penis Erectile dysfunction Peyronie disease Thoracic disc disease Gait instability Lhermitte sign positive Sensory impairment Abnormal MRI, spinal cord Abnormal brain MRI Angiokeratoma circumscriptum Lower back pain Mold exposure Multiple sclerosis Fibromyalgia (11/03/15) Depressive disorder Attention deficit hyperactivity disorder, combined type (03/02/12) Lumbar radiculopathy (Last Reviewed 03/12/24 @ 08:38 by Arlin Johnson, RN) No significant past surgical history Most Recent Vital Signs Temperature 37.1 C 11/01/24 08:11 Temperature Source Temporal Artery Scan 11/01/24 08:11 Pulse 79 11/01/24 08:11 Pulse 84 11/01/24 07:46 Respiratory Rate 17 11/01/24 08:11 Respiratory Effort Short of Breath 11/01/24 02:53 Blood Pressure 132/94 H 11/01/24 08:11 Blood Pressure Mean 106 11/01/24 08:11 Pulse Oximetry 99 11/01/24 08:11 Oxygen Delivery Method Room Air 11/01/24 08:11 Oxygen Flow Rate 0 11/01/24 08:11 Pain Level 6 11/01/24 08:11 Allergies No Known Allergies Allergy (Verified 11/01/24 02:51) IV IV Catheter Type [Right Saline Lock Antecubital] IV Catheter Gauge [Right 18 Antecubital] Diet Orders Category Date Time Status Heart Healthy Eating [DIET] Nutrition 11/01/24 Breakfast Active Diagnostics 11/01/24 11/01/24 11/01/24 Range/Units 07:55 06:44 06:25 WBC (4.4-10.8) 10^3/uL RBC (4.36-5.78) 10^6/uL Hgb (13.5-17.5) g/dL Hct (40.0-50.0) % MCV (80-95) fL MCH (27.0-33.0) pg MCHC (32.0-36.0) % RDW (11.8-14.1) % Plt Count (130-400) 10^3/uL MPV (8.0-11.0) fL Immature Gran % % Neutrophils % % Lymphocytes % % Monocytes % % Eosinophils % % Basophils % % Nucleated RBC % (0.0-0.3) % Absolute Neutrophils (1.2-6.7) 10^3/uL Absolute Lymphocytes (1.2-3.4) 10^3/uL Absolute Monocytes (0.1-0.8) 10^3/uL Absolute Eosinophils (0.0-0.7) 10^3/uL Absolute Basophils (0.0-0.2) 10^3/uL PT (9.1-11.1) sec INR (0.9-1.1) APTT (20.6-30.2) sec D-Dimer (<500) ng/mlFEU Sodium (136-145) mmol/L Potassium (3.5-5.1) mmol/L Chloride (98-107) mmol/L Carbon Dioxide (21.0-32.0) mmol/L Anion Gap (3-11) mmol/L BUN (7-18) mg/dL Creatinine (0.70-1.30) mg/dL Est GFR (CKD-EPI 2020) (mL/min/1.73m2) Glucose (74-106) mg/dL Calcium (8.5-10.1) mg/dL Magnesium (1.8-2.4) mg/dL Total Bilirubin (0.2-1.0) mg/dL AST (15-37) U/L ALT (16-63) U/L Alkaline Phosphatase (46-116) U/L Troponin I Cancelled 6 (<or=76) ng/L NT-Pro-B Natriuret Pep (<300) pg/mL Total Protein (6.4-8.2) g/dL Albumin (3.4-5.0) g/dL Lipase (<78) U/L Urine Opiates Screen Positive A (Negative) Urine Methadone Screen Negative (Negative) Ur Barbiturates Screen Negative (Negative) Ur Tricyclics Screen Negative (Negative) Ur Amphetamines Screen Negative (Negative) U Benzodiazepines Scrn Positive A (Negative) Urine Cocaine Screen Negative (Negative) Ur THC Screen Negative (Negative) 11/01/24 11/01/24 11/01/24 Range/Units 04:55 03:55 02:58 WBC 6.24 (4.4-10.8) 10^3/uL RBC 5.80 H (4.36-5.78) 10^6/uL Hgb 15.9 (13.5-17.5) g/dL Hct 48.9 (40.0-50.0) % MCV 84 (80-95) fL MCH 27.4 (27.0-33.0) pg MCHC 32.5 (32.0-36.0) % RDW 13.2 (11.8-14.1) % Plt Count 219 (130-400) 10^3/uL MPV 10.8 (8.0-11.0) fL Immature Gran % 0.2 % Neutrophils % 40.7 % Lymphocytes % 44.2 % Monocytes % 11.1 % Eosinophils % 3.0 % Basophils % 0.8 % Nucleated RBC % 0.0 (0.0-0.3) % Absolute Neutrophils 2.54 (1.2-6.7) 10^3/uL Absolute Lymphocytes 2.76 (1.2-3.4) 10^3/uL Absolute Monocytes 0.69 (0.1-0.8) 10^3/uL Absolute Eosinophils 0.19 (0.0-0.7) 10^3/uL Absolute Basophils 0.05 (0.0-0.2) 10^3/uL PT 10.7 (9.1-11.1) sec INR 1.1 (0.9-1.1) APTT 26.8 (20.6-30.2) sec D-Dimer 198 (<500) ng/mlFEU Sodium 142 (136-145) mmol/L Potassium 3.7 (3.5-5.1) mmol/L Chloride 103 (98-107) mmol/L Carbon Dioxide 33.2 H (21.0-32.0) mmol/L Anion Gap 5.8 (3-11) mmol/L BUN 20 H (7-18) mg/dL Creatinine 1.1 (0.70-1.30) mg/dL Est GFR (CKD-EPI 2020) 87.57 (mL/min/1.73m2) Glucose 102 (74-106) mg/dL Calcium 9.2 (8.5-10.1) mg/dL Magnesium 2.0 (1.8-2.4) mg/dL Total Bilirubin 0.5 (0.2-1.0) mg/dL AST 28 (15-37) U/L ALT 29 (16-63) U/L Alkaline Phosphatase 89 (46-116) U/L Troponin I Cancelled 5 6 (<or=76) ng/L NT-Pro-B Natriuret Pep 5 (<300) pg/mL Total Protein 7.9 (6.4-8.2) g/dL Albumin 4.1 (3.4-5.0) g/dL Lipase 32 (<78) U/L Urine Opiates Screen (Negative) Urine Methadone Screen (Negative) Ur Barbiturates Screen (Negative) Ur Tricyclics Screen (Negative) Ur Amphetamines Screen (Negative) U Benzodiazepines Scrn (Negative) Urine Cocaine Screen (Negative) Ur THC Screen (Negative) Intake and Output - 24 Hour Total 11/01/24 02:46 thru 11/01/24 03:19 Intake Total 100 Output Total 850 Balance -750 Weight 98.883 kg Intake: IV 100 Output: Urine 850 Falls Risk Assessment History of Falls No History 11/01/24 02:51 Contributing Factors No Factors 11/01/24 02:51 Ambulatory Aids Independent 11/01/24 02:51 Tubes/Lines None 11/01/24 02:51 Gait Evaluation No gait disturbance 11/01/24 02:51 Cognition No cognitive impairment 11/01/24 02:51 Fall Total Score 0 11/01/24 02:51 Level of Risk Standard/Low Risk 11/01/24 02:51 v v v v v v v v v Sending and/or Receiving Nurses: Please use comment section below to note any information pertinent to the patient hand-off not included above. Information / Comments: Report received from: Pt c/o burning chest pain 09/29. pt given GI cocktail and carafate which helped a little, now 07/30. VS WNL ANTONIO Johnson
--- NOTE | 2024-11-01 09:04 | PDOC.CMIN ---
Date of service: 11/01/24 Time of Service: 09:04 Care Management Initial Assmt Initial Assessment Reason for Hospitalization: Chest pain Functional Status/Living Situation Patient Presentation: Erick is admitted with substernal chest pain radiating into his neck. Advance Directives Advance Directives: Do you have an Advance Directive: N 09/09/24, 09:16 AD On File at [facility]: N 09/09/24, 09:16 Date Asked 11/01/24 Today, 08:03 AD Date Reviewed COLST On File at [facility] COLST Date Scanned Code Status Resuscitation Status Full Code Care Team Visit Care Team Role Provider Type Lamont Owusu MD Primary Care Provider [facility] STAFF PHYSICIAN InPatient Corky Packer Other Providers OTHER Komal Jimenez MD Emergency Provider [facility] ST[facility] PHYSICIAN Jelani Collins MD Admit Provider [facility] PHYSICIAN Attending Provider Social Determinants of Health Screening Will the Patient Participate in the Screening?: Declined to provide PFSH All Active Problems (Updated 06/03/24 @ 14:42 by Mahad Diaz MD) Bilateral hip pain (Acute) Sciatica of right side (Acute) Chronic pain syndrome (Chronic) Acne (Acute) Low libido (Acute) Constipation (Acute) Acute pain associated with herpes zoster (Acute) Peripheral edema (Acute) Vitamin D deficiency (Acute) Thoracic disc herniation (Chronic 10/31/14) Raynaud's phenomenon without gangrene (Chronic 01/29/16) Family history of cardiovascular disease (Chronic) HYPERTENSION Back pain (Chronic 08/12/14) Lumbar disc displacement without myelopathy (Chronic) Medical History (Updated 06/03/24 @ 14:42 by Mahad Diaz MD) Hypogonadism male Acquired buried penis Erectile dysfunction Peyronie disease Thoracic disc disease Gait instability Lhermitte sign positive Sensory impairment Abnormal MRI, spinal cord Abnormal brain MRI Angiokeratoma circumscriptum Lower back pain Mold exposure Multiple sclerosis [place] by [facility]. Demyelinating lesions spinal cord and brain Fibromyalgia (11/03/15) Depressive disorder Attention deficit hyperactivity disorder, combined type (03/02/12) Lumbar radiculopathy Surgical History No significant past surgical history Family History Other Family history of cardiovascular disease Social History (Updated 02/19/24 @ 10:42 by Alysa Sanches) Smoking/Tobacco Use Status: Former Tobacco Use Quit Date: 06/30/23 Smokeless tobacco user: other Quit status: has quit before Second Hand Exposure: Yes Smoking risk assessment performed?: Yes Alcohol Intake: never Drug use: Rarely Substance use type: marijuana Adopted: No Caregiver/Support person: No Foster care: No Household members: family Housing: other Details: [place] [facility] Number of Children: 0 number of grandchildren: 0 Communication Needs: None Education Level: high school Do you need help understanding health information?: Rarely 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 Pets and animals: Yes Pets and animals: cat(s) Sexually active: Yes Do you think of yourself as: straight/heterosexual Current gender identity: male What is your relationship status?: never How often do you talk on the phone with friends or family?: once per week How often do you attend islam or zoroastrianism services?: decline to answer Do you belong to any clubs or organized social groups?: no Panel score (0-1 are the most socially isolated patients): 0 What type of physical activity do you participate in: walking and weight lifting Duration: 15-30 minutes/day Frequency: 3-4 times per week Erica/Hindu: [employer] Special erica needs: No Agree to transfusion: Yes Seatbelt use: always Helmet use: Yes Helmet use: sometimes Drive intox or ride w/intox 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
--- NOTE | 2024-11-01 09:30 | DI.US_ITS ---
APPROVED REPORT EXAM: Comprehensive 2D, Doppler, and color-flow Echocardiogram Patient Location: In-Patient Room/Bed: 230 Vacuum Filter Operator: Jean Paul Solis RDCS (AE) Indications: Chest pain Other Information Study Quality: Adequate Conclusion Normal left ventricular wall thickness and chamber size. Ejection fraction is 55 to 60%. Wall motion is normal Normal right ventricular size and function Both atria are normal in size There is no structural or hemodynamically significant valvular disease Normal estimated right ventricular systolic pressure 21 mmHg Wall motion Left Ventricle The left ventricle is normal size. Left ventricular systolic function is normal. The left ventricular ejection fraction is within the normal range. There is normal left ventricular wall thickness. There is normal LV segmental wall motion. There is no ventricular septal defect visualized. LVEF is 55-60%. Right Ventricle The right ventricle is normal size. The right ventricular systolic function is normal. Atria The left atrium size is normal. The right atrium size is normal. The interatrial septum is intact with no evidence for an atrial septal defect. Aortic Valve The aortic valve is normal in structure. There is no aortic valvular stenosis. No aortic regurgitation is present. Mitral Valve The mitral valve is normal in structure. No evidence of mitral valve stenosis. Trivial mitral regurgitation. Tricuspid Valve The tricuspid valve is normal in structure. There is no tricuspid valve stenosis. Trace tricuspid regurgitation. The RVSP is 20.8 mmHg. Pulmonic Valve The pulmonary valve is normal in structure. There is no pulmonic valvular stenosis. There is no pulmonic valvular regurgitation. Great Vessels The aortic root is normal in size. The ascending aorta is normal in size. Aortic arch is normal in caliber. IVC is normal in size and collapses >50% with inspiration. Pericardium There is no pericardial effusion. 2D Dimensions IVSD d PLAX 0.90 cm M: 0.6-1.2 Ao Root d 2.46 cm M: 3.1 - 3.7 LVPW d PLAX 0.89 cm M: 0.6 - 1.2 Ao Asc Diam d 2.90 cm M: 2.6 - 3.4 LVID d PLAX 5.14 cm M: 4.2 - 5.8 LVDs 3.50 cm M: 2.5 - 4.0 LV EF Teichholz 59.7 % FS 31.91 % LV EDV (Teich) 125.9 mL LV ESV (Teich) 50.8 mL Stroke Vol Index (Teich) 35.10 M-Mode TAPSE 2.31 cm (M/F) >1.7 Auto EF LV EDV A4C 126.3 mL LV EDV A2C 78.7 mL LV EDV BP 99.1 mL LV ESV A4C 57.3 mL LV ESV A2C 31.4 mL LV ESV BP 42.4 mL LVEF(%) A4C 54.6 % LVEF(%) A2C 60.2 % LVEF(%) BP 57.2 % LV SV A4C 69.0 ml LV SV A2C 47.4 ml LV SV BP 56.7 ml LV CO A4C 6.1 L/min LV CO A2C 3.8 L/min LV CO BP 5.0 L/min HR A4C 88.89 BPM HR A2C 80.36 BPM LV EDV Index (BP) LA Volume LA Length A4C 4.5 cm LA Length A2C 5.0 cm LA Area A4C s 11.53 cm2 LA Area A2C s 10.14 cm2 LA Vol A4C A-L 24.94 mL LA Vol A2C A-L 17.62 mL LA Vol Biplane A-L 21.9 mL LA Vol/BSA A4C A-L LA Vol/BSA A2C A-L LA Vol/BSA BP A-L 10.2 mL/m2 LA Vol A4C MOD 23.1 mL LA Vol A2C MOD 17.1 mL LA Vol BP MOD 20.7 mL RA Volume RA Area A4C 8.4 cm2 RA ESV A4C (A-L) 17.1mL RA Vol/BSA A4C A-L RA Length A4C 3.5 cm RA ESV A4C (MOD) 16.4mL LV Diastology MV E' medial 0.115 (>0.07 m/s) MV E Vmax 0.74 (0.4-1.3 m/s) MV E/E' MED 6.46 (<14) MV A Vmax 0.55 (0.4-1.3 m/s) MV E' lateral 0.130 (>0.1 m/s) E/A Ratio 1.3 MV E/E' LAT 5.70 (<14) MV E' Average 0.122 m/s MV E/E'(average) 6.06 Aortic Valve AoV Vmax 1.21 m/s LVOT Vmax 0.98 m/s AoV Peak Grad 5.9 mmHg LVOT Peak Grad 3.8 mmHg AoV Area (Vmax) 3.00 cm2 LVOT VTI 0.174 m AoV VTI 0.227 m LVOT Mean Grad 2.1 mmHg AoV Mean Tani. 0.84 m/s LVOT SV 64.71 mL AoV Mean Grad 3.2 mmHg LVOT Diam s 2.15 cm AoV Area (VTI) 2.85 cm2 AV Regurg Peak Gr. 5.88 mmHg Velocity Ratio 0.81 Mitral Valve MV DT 179 (160-240 msec) Pulmonary Valve PV Vmax 0.99 (0.5-1.5 m/s) RVOT Vmax 0.73 m/s PV Peak Grad 3.9 mmHg RVOT Peak Gr. 2.1 mmHg PV Mean Tani 0.71 m/s RVOT VTI 0.131 m PV Mean Grad 2.3 mmHg RVOT Mean Gr. 1.1 mmHg Tricuspid Valve RA Pressure 3.00 mmHg TR Vmax 2.11 m/s TR Peak Grad 17.8 mmHg RVSP (TR) 20.8 mmHg
[2024-11-01] MEDS: Gabapentin 300 MG CAP 600 MG PO (09:39)
--- NOTE | 2024-11-01 11:26 | PT.INIE ---
PT Notes Visit Reasons: Chest Pain Physical Therapy Inpatient Initial Evaluation Date: 11/01/2024 Referring Doctor: Dennis Palomares MD PT Orders: PT CONSULT: Eval.Treat Precautions: Fall. Standard. Activity as tolerated. Patient Profile/Admitting Diagnosis: Erick is a 38-year-old patient with past medical history significant for MS on ongoing MS medications and L5-S1 discectomy who presented to the ED with chief complaints of substernal, epigastric, and burning chest pain that radiated to his neck worse with deep breathing. 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 Demyelinating lesions spinal cord and brain Fibromyalgia (11/03/15) Depressive disorder Attention deficit hyperactivity disorder, combined type (03/02/12) Lumbar radiculopathy Surgical History No significant past surgical history Social History/Home Situation: Lives alone in an apartment with 24 steps to enter. Family lives about half an hour away. Equipment Owned/DME: [facility] Subjective: Patient verbalized no decrease in pre hospital admission strength. Lifted a 30-lb eggplant pot a day prior. Objective: General Observation: Resting in bed. Mental Status: Alert and oriented as to person, place, time, and purpose. Able to pay attention, focus, and respond appropriately. Pain: 3-4/10 in R calf after walk Vital Signs: Closely monitored by nursing staff ROM: Right Upper Extremity: Shoulder Flexion WFL. Shoulder abduction WFL. Elbow flexion WFL. Wrist flexion WFL. Functional opening and closing of hand WFL. Left Upper Extremity: Shoulder Flexion WFL. Shoulder abduction WFL. Elbow flexion WFL. Wrist flexion WFL. Functional opening and closing of hand WFL. Right Lower Extremity: Hip flexion WFL. Hip abduction WFL. Knee flexion WFL. Ankle dorsiflexion WFL. Ankle plantarflexion WFL. Left Lower Extremity: Hip flexion WFL. Hip abduction WFL. Knee flexion WFL. Ankle dorsiflexion WFL. Ankle plantarflexion WFL. Strength: Right Upper Extremity: Shoulder flexors 5/5. Shoulder abductors 5/5. Elbow flexors 5/5. Elbow extensors 5/5. Data Entry Technician strong. Left Upper Extremity: Shoulder flexors 5/5. Shoulder abductors 5/5. Elbow flexors 5/5. Elbow extensors 5/5. Data Entry Technician strong. Right Lower Extremity: Hip flexors 4/5. Hip abductors 4/5. Knee flexors 4/5. Knee extensors 4/5. Ankle dorsiflexors 4-/5. Ankle plantarflexors 4/5. Left Lower Extremity: Hip flexors 4/5. Hip abductors 4/5. Knee flexors 4/5. Knee extensors 4/5. Ankle dorsiflexors 4/5. Ankle plantarflexors 4/5. Bed Mobility/Transfers: Independent Gait: 600 feet without an assistive device. Gait speed reduced which has been an issue for him since his back surgery. Complained of R calf going into spasm at end of the walk which subsided with rest. No increase in chest pain reported. Balance: Static Sitting: Normal Dynamic Sitting: Normal Static Standing: Normal Dynamic Standing: Good Special Tests: Mobility Limitations Standardized Measure [facility] AM-PAC 6 clicks Basic Mobility Inpatient Short Form: Raw Score: 21 CMS Score: 29% deficit Informed Consent/Education: Patient was instructed in purpose of PT consult and plan of care. Agreeable to proceed with established PT POC to achieve personal goals. Assessment: First double checked with Nurse Gloria about result of echocardiography before patient was ambulated. EF is at 55-60%. Echo is negative for any abnormality. Has not had his Baclofen and MS meds on board with the walk yet as MD med orders were not written yet per Nurse Gloria. Heavy lifting of a 30-lb eggplant pot may have triggered symptoms considering he is still recovering from back surgery that happened in August. Mild L%-S1 radiculopathy and pre-existing MS, not having had any medication for MS prior to PT, both resulted to pain and cramping sensation in R leg after walk today. Erick is a 38-year-old male S/P L5-S1 discectomy in August 2024 here today for complaints of substernal chest pain. Patient presents with clinical signs and symptoms consistent with current/admitting diagnoses that have resulted to mobility limitations, gait instability, generalized weakness, and overall ADL decline as demonstrated by the following impairment level findings: 1. Pain in chest with deep breathing, prolonged talking, yawning 2. Pain in low back at 3-4/10 at rest and with walking Impairments are contributing to the following functional limitations: 1. Increased completion time for mobility ADL performance Patient is assessed as [place] low 82134 moderate complexity based on the following: History: 38-year-old male with past medical history as indicated above Examination: Demonstrable impairment in strength, balance, and mobility level with underlying impairments and functional limitations as exhibited above as well as deficit score of 29% utilizing the [facility] Mobility Inpatient Short Form Presentation: Stable Decision Makin moderate complexity Goals: Goals X1 week 1. Independent gait on level surface with use of no AD for at least 300 feet without report of pain nor dyspnea 2. Independent stair negotiation while holding onto 1 rail for at least 24 steps without report of pain nor dyspnea 3. Normal static and dynamic standing balance/tolerance 4. Independent with HEP performance Plan of Care/Treatment Plan: 1-2x/day, 7 days/week x 1 week. Plan of care has been reviewed with the SAFETY DEPOSIT CLERK providing the service under Physical Therapy direction. Initiate Physical Therapy intervention for pain management as needed, strengthening, bed mobility, transfers, gait, stairs, balance training, and use of assistive device. DISCHARGE RECOMMENDATIONS: OP PT for continued back rehabilitation. TREATMENT CODE/TIME: 26785 x 1 unit. Thank you for the opportunity to participate in the care of this patient. Lizzie Valdivia PT, DPT, CLT [facility] [place], [place]
[2024-11-01] MEDS: Baclofen 10 MG TAB PO ×2 (12:19→14:28)
[2024-11-01] MEDS: oxyCODONE 5 MG TAB PO (12:19)
[2024-11-01] MEDS: Famotidine 20 MG TAB 40 MG PO (14:28)
[2024-11-01] MEDS: Acetaminophen 325 MG TAB 650 MG PO (16:26)
--- NOTE | 2024-11-01 17:17 | PT.INTREAT ---
PT Notes Visit Reasons: Chest Pain Date: 11/01/2024 PRECAUTIONS: Fall risk, Standard, no lifting heavier than 10lbs SUBJECTIVE: pt in bed when approached for therapy this afternoon, pt reports chest pain requested to speak with nurse about pain meds. agreed to participating with therapy session after having conversation with nurse. OBJECTIVE: IV line ? PAIN: 8/10 chest pain, 8/10 left shoulder pain VITALS: monitored by nursing ? Therapeutic Activities 10270: Direct one-on-one instruction in dynamic activities to improve functional performance. ?? BED MOBILITY/TRANSFERS? Rolling L/R: SBA Supine-sit: ?SBA? Sit-supine: ?SBA ? Sit-stand: ? SBA Stand-sit: ??SBA ? Bed-Chair:? ?SBA? Chair-bed: SBA Provided skilled cues and instruction on performance and technique throughout. Gait Training 84934: Direct one-on-one instruction and skilled instruction in: Movement sequencing Turning and movement with proper form Provided instruction in gait pattern Patient education regarding pacing and breathing techniques to maximize activity tolerance? GAIT? Assistive Device: ?? none? Weight bearing: FWB Assist: ? SBA? Distance:??300'? x 2 seated rest break in between ? Deviation: ? ?Stoop forward, WBOS, low step height, short step length. ? Nustep 15mins without UE usage. ? ASSESSMENT:?pt able to burp multiple times during the course of the session, pt reports shoulder and chest pain slightly alleviated post session. PLAN: Continue with balance training, global strengthening and general conditioning for improved safety, mobility and activity tolerance until pt is ready for DC. TREATMENT CODE/TIME: 88572p7 30mins ( 4:30-5:00pm)
--- NOTE | 2024-11-01 18:00 | RT.EKG_ITS ---
APPROVED REPORT Exam: Resting ECG Reason for Exam: persistent chest pain Patient Location: I HR:109 bpm ECG Measurements Heart Rate 109 AXIS OK 157 P 33 QRSd 86 QRS 19 QT 302 T 7 QTc 407 Conclusion Sinus tachycardia...rate> 99 Artifact May be normal
[2024-11-01 18:37] LABS: Troponin I 6 ng/L (<or=76)
--- NOTE | 2024-11-01 18:45 | W.PM.DS.N ---
Date of service: 11/01/24 Time of Service: 18:00 DS: Diagnosis Discharge Diagnosis (1) Chest pain due to gastrointestinal reflux disease: Status: Acute Asessment and Plan: Patient had a large belch which resolved his pain He declined to stay in the hospital Discharge Plan Disposition Patient Disposition: Home Condition: Fair Discharge Details Reason For Visit: [id number] Admit Date/Time: 11/01/24 07:50 Admit Provider: Jelani Collins Attending Provider: Jelani Collins Primary Care Provider: Lamont Owusu Hospital Course Hospital Course: Erick Chacon is a 38 year old man presenting November 01 with chest pain, with unremarkable EKG, echocardiogram and CXR and negative troponin. Pain not relieved with IV tylenol, sucralfate, simethicone and nitroglycerin. He was admitted for observation and monitoring. After admission, he was given an H2 satnam and PPI, and then had a substantial belch which relieved his pain. He is discharged home to resume his normal regimen. Home Meds and New Rx's Prescriptions: Continued Ocrevus 30 mg/mL solution 600 mg IV [id number] Patient Comments: Last infusion 11/2023 (DME) BD Regular Bevel [place] 18 gauge x 1 1/2 needle See Rx Instructions .ROUTE .MEDSUPPLY Qty: 1000 Patient Comments: USE 1 SYRINGE WEEKLY FOR INTRAMUSCULARLY TESTOSTERONE INJECTION Rx Instructions: As directed (DME) safety needles [BD SafetyGlide Needle] 18 gauge x 1 1/2 needle See Rx Instructions .ROUTE .MEDSUPPLY Qty: 100 Patient Comments: USE ONCE WEEKLY FOR TESTOSTERONE INJECTION Rx Instructions: As directed baclofen 10 mg tablet 10 mg PO TID (DME) Aerochamber Mini Spacer See Rx Instructions .ROUTE .MEDSUPPLY Qty: 1 0RF Rx Instructions: As directed buspirone 15 mg tablet 15 mg PO BID Qty: 180 3RF losartan 25 mg tablet 25 mg PO DAILY Qty: 90 4RF anastrozole 1 mg tablet 1 mg PO .week Qty: 12 3RF docusate sodium 100 mg capsule 100 mg PO DAILY Qty: 90 3RF gabapentin 600 mg tablet 600 mg PO BID Qty: 60 5RF polyethylene glycol 3350 [Miralax] 17 gram/dose powder 17 g PO DAILY Qty: 850 4RF testosterone cypionate 200 mg/mL oil 200 mg IM .Q14 gabapentin 400 mg capsule 400 mg PO TID Qty: 90 5RF naloxone [Narcan] 4 mg/actuation spray,non-aerosol 4 mg intranasal Q2M PRN (Reason: opioid overdose) Qty: 2 0RF Patient Comments: prn Rx Instructions: spray 1 dose into ONE nostril; alternate nostrils w each dose until help arrives albuterol sulfate [Ventolin HFA] 90 mcg/actuation HFA aerosol inhaler 2 puff inhalation QID PRN (Reason: shortness of breath or wheezing) Qty: 8.5 2RF diazepam 5 mg tablet 5 mg PO HS PRN (Reason: muscle spasm) Qty: 28 2RF tramadol 50 mg tablet 50 mg PO Q4H PRN MDD 3 Qty: 90 0RF tizanidine 4 mg tablet 4 mg PO BID PRN (Reason: muscle spasticity) Qty: 60 2RF oxycodone 5 mg tablet 5 mg PO BID MDD 2 tabs PRN (Reason: pain) Qty: 56 0RF methylphenidate HCl [Ritalin] 20 mg tablet 20 mg PO TID MDD 60mg Qty: 84 0RF hydrocodone bitartrate 30 mg tablet,oral only,ext.rel.24 hr 30 mg PO DAILY MDD 1 tab Qty: 28 0RF Patient Comments: Pt advised 20mg d/c. Now taking 30mg. TR Discontinued sildenafil [Viagra] 100 mg tablet 100 mg PO DAILY PRN Rx Instructions: administer 30 minutes to 4 hours before activity Discharge Instructions Stand Alone Forms: Nursing Discharge Form Referrals: Lamont Owusu MD [Primary Care Provider, Medicine] Referral Note: Please call your PCP office to set up a follow up appointment. Activity:: Activity as Tolerated Equipment/Supplies:: No Equipment Needed Diet:: Normal Diet Discharge Orders Discharge Orders: Discharge Order (Routine); Ordered 11/01/24 Ordered By: Jelani Collins Discharge Data Discharge Date/Time-TO BE ENTERED AT DEPARTURE: 11/01/24 18:56 DS: Summary Time Spent with Patient providing and/or coordinating discharge services: Less than 30 minutes Status at Discharge Functional status at discharge: independent ambulation Overall status at discharge: patient is back to baseline Mental Status: mental status grossly normal Speech and Movement: speech and movement normal Mood: congruent mood Affect: normal affect Quality:SDOH Health Related Social Needs: Health related social needs transpo insecurity daily activities Health related social needs details says he may need help with someone shopping for him Health related social needs details: says he may need help with someone shopping for him Exam Psych Mental Status: mental status grossly normal Speech and Movement: speech and movement normal Mood: congruent mood Affect: normal affect DS: Data Vitals/I&O Vitals and I&O: Vital Signs Temperature 36.3 C L 11/01/24 17:15 Temperature Source Temporal Artery Scan 11/01/24 15:15 Pulse 70 11/01/24 17:15 Pulse Rhythm Regular 11/01/24 17:15 Pulse 84 11/01/24 07:46 Respiratory Rate 17 11/01/24 17:15 Respiratory Effort Normal 11/01/24 17:15 Respiratory Depth Normal 11/01/24 17:15 Respiratory Pattern Normal 11/01/24 17:15 Blood Pressure 134/70 11/01/24 17:15 Blood Pressure Mean 107 11/01/24 15:15 Pulse Oximetry 98 11/01/24 17:15 Oxygen Delivery Method Room Air 11/01/24 17:15 Oxygen Flow Rate 0 11/01/24 17:15 Pain Level 10 11/01/24 17:15 Intake & Output 10/31/24 11/01/24 11/01/24 23:59 11:59 23:59 Intake Total 100 / 600 500 / 600 Output Total 850 / 850 Balance -750 / -250 500 / -250 Weight 98.883 kg Intake: IV 100 / 100 Oral 500 / 500 Output: Urine 850 / 850 Other: Urine Appearance Clear Comment voids independently Data Completed and Pending Labs on day of discharge: Labs from last 24 hours 11/01/24 11/01/24 11/01/24 18:15 07:55 06:44 WBC RBC Hgb Hct MCV MCH MCHC RDW Plt Count MPV Immature Gran % Neutrophils % Lymphocytes % Monocytes % Eosinophils % Basophils % Nucleated RBC % Absolute Neutrophils Absolute Lymphocytes Absolute Monocytes Absolute Eosinophils Absolute Basophils PT INR APTT D-Dimer Sodium Potassium Chloride Carbon Dioxide Anion Gap BUN Creatinine Est GFR (CKD-EPI 2020) Glucose Calcium Magnesium Total Bilirubin AST ALT Alkaline Phosphatase Troponin I 6 Cancelled NT-Pro-B Natriuret Pep Total Protein Albumin Lipase Urine Opiates Screen Positive A Urine Methadone Screen Negative Ur Barbiturates Screen Negative Ur Tricyclics Screen Negative Ur Amphetamines Screen Negative U Benzodiazepines Scrn Positive A Urine Cocaine Screen Negative Ur THC Screen Negative 11/01/24 11/01/24 11/01/24 06:25 04:55 03:55 WBC RBC Hgb Hct MCV MCH MCHC RDW Plt Count MPV Immature Gran % Neutrophils % Lymphocytes % Monocytes % Eosinophils % Basophils % Nucleated RBC % Absolute Neutrophils Absolute Lymphocytes Absolute Monocytes Absolute Eosinophils Absolute Basophils PT INR APTT D-Dimer Sodium Potassium Chloride Carbon Dioxide Anion Gap BUN Creatinine Est GFR (CKD-EPI 2020) Glucose Calcium Magnesium Total Bilirubin AST ALT Alkaline Phosphatase Troponin I 6 Cancelled 5 NT-Pro-B Natriuret Pep Total Protein Albumin Lipase Urine Opiates Screen Urine Methadone Screen Ur Barbiturates Screen Ur Tricyclics Screen Ur Amphetamines Screen U Benzodiazepines Scrn Urine Cocaine Screen Ur THC Screen 11/01/24 02:58 WBC 6.24 RBC 5.80 H Hgb 15.9 Hct 48.9 MCV 84 MCH 27.4 MCHC 32.5 RDW 13.2 Plt Count 219 MPV 10.8 Immature Gran % 0.2 Neutrophils % 40.7 Lymphocytes % 44.2 Monocytes % 11.1 Eosinophils % 3.0 Basophils % 0.8 Nucleated RBC % 0.0 Absolute Neutrophils 2.54 Absolute Lymphocytes 2.76 Absolute Monocytes 0.69 Absolute Eosinophils 0.19 Absolute Basophils 0.05 PT 10.7 INR 1.1 APTT 26.8 D-Dimer 198 Sodium 142 Potassium 3.7 Chloride 103 Carbon Dioxide 33.2 H Anion Gap 5.8 BUN 20 H Creatinine 1.1 Est GFR (CKD-EPI 2020) 87.57 Glucose 102 Calcium 9.2 Magnesium 2.0 Total Bilirubin 0.5 AST 28 ALT 29 Alkaline Phosphatase 89 Troponin I 6 NT-Pro-B Natriuret Pep 5 Total Protein 7.9 Albumin 4.1 Lipase 32 Urine Opiates Screen Urine Methadone Screen Ur Barbiturates Screen Ur Tricyclics Screen Ur Amphetamines Screen U Benzodiazepines Scrn Urine Cocaine Screen Ur THC Screen PFSH All Active Problems (Updated 11/07/24 @ 12:42 by Jelani Collins MD) Chest pain due to gastrointestinal reflux disease (Acute) Chronic back pain greater than 3 months duration (Acute) Anxiety, generalized (Acute) Chest pain at rest (Acute) Bilateral hip pain (Acute) Sciatica of right side (Acute) Chronic pain syndrome (Chronic) Acne (Acute) Low libido (Acute) Constipation (Acute) Acute pain associated with herpes zoster (Acute) Peripheral edema (Acute) Vitamin D deficiency (Acute) Thoracic disc herniation (Chronic 10/31/14) Raynaud's phenomenon without gangrene (Chronic 01/29/16) Family history of cardiovascular disease (Chronic) HYPERTENSION Back pain (Chronic 08/12/14) 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 Demyelinating lesions spinal cord and brain Fibromyalgia (11/03/15) Depressive disorder Attention deficit hyperactivity disorder, combined type (03/02/12) Lumbar radiculopathy Surgical History No significant past surgical history Family History Other Family history of cardiovascular disease Social History (Updated 02/19/24 @ 10:42 by Alysa Sanches) Smoking/Tobacco Use Status: Former Tobacco Use Quit Date: 06/30/23 Smokeless tobacco user: other Quit status: has quit before Second Hand Exposure: Yes Smoking risk assessment performed?: Yes Alcohol Intake: never Drug use: Rarely Substance use type: marijuana Adopted: No Caregiver/Support person: No Foster care: No Household members: family Housing: house Number of Children: 0 number of grandchildren: 0 Communication Needs: None Education Level: high school Do you need help understanding health information?: Rarely 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 Pets and animals: Yes Pets and animals: cat(s) Sexually active: Yes Do you think of yourself as: straight/heterosexual Current gender identity: male What is your relationship status?: never How often do you talk on the phone with friends or family?: once per week How often do you attend baptism or tenriism services?: decline to answer Do you belong to any clubs or organized social groups?: no Panel score (0-1 are the most socially isolated patients): 0 What type of physical activity do you participate in: walking and weight lifting Duration: 15-30 minutes/day Frequency: 3-4 times per week Erica/Religious: [facility] needs: No Agree to transfusion: Yes Seatbelt use: always Helmet use: Yes Helmet use: sometimes Drive intox or ride w/intox six horse hitch driver: No Working smoke detector in home: Yes Carbon monox detector in home: Yes Firearms in home: Yes Do you feel safe at home: Yes Do you feel safe in your relationship?: Yes Victim of physical abuse: No Victim of emotional abuse: No Victim of sexual abuse: No Would you like helpful sources: No Time Spent with Patient Time Spent with Patient: <45 minutes Time was spent: preparing to see the patient(eg.review tests), obtaining and/or reviewing separately otained hiistory, ordering medications,tests, procedures, referring, communicating with other health respiratory care faculty, indepentently interpreting results, counseling the patient and care coordination
== END 2024-11-01 18:56 | disposition home or self-care (01) ==
LOC: ER 03:06 → MS 08:03
PROVIDERS: Admitting Provider Family Medicine; Emergency Provider Student in an Organized Health Care Education/Training Program; PCP Family Medicine; Responsible Provider Family Medicine; Visit Provider Family Medicine
DX: R07.89 Other chest pain (principal); G35 Multiple sclerosis; I10 Essential (primary) hypertension; Z79.899 Other long term (current) drug therapy; K59.00 Constipation, unspecified; R60.0 Localized edema; I73.00 Raynaud's syndrome without gangrene; E55.9 Vitamin D deficiency, unspecified; M51.24 Other intervertebral disc displacement, thoracic region; M51.26 Other intervertebral disc displacement, lumbar region; M54.41 Lumbago with sciatica, right side; R26.81 Unsteadiness on feet; F32.A Depression, unspecified; F98.8 Other specified behavioral and emotional disorders with onset usually occurring in childhood and adolescence; M79.7 Fibromyalgia; Z59.82 Transportation insecurity; Z73.89 Other problems related to life management difficulty
CPT/HCPCS: 00123; 36415; 80053; 80307; 83690; 93005; 93306; 93308; 96374; 97110; 97162; 97530; 99285; 71046; 83735; 83880; 84484; 85025; 85379; 85610; 85730; 93010; 99235; G0378; J0131; J3490

== ENCOUNTER 2024-11-29 15:01 | Outpatient (CLI) | payer MEDICARE, MEDICAID, SELFPAY ==
[2024-11-29 11:09] LABS: Abs Immature Grans 0.02 10^3/uL (0.0-0.06); HCT 49.7 % (40.0-50.0); HGB 16.2 g/dL (13.5-17.5); Immature Grans % 0.3 %; MCH 27.2 pg (27.0-33.0); MCHC 32.6 % (32.0-36.0); MCV 84 fL (80-95); MPV 10.4 fL (8.0-11.0); Platelet Count 213 10^3/uL (130-400); RBC 5.95 10^6/uL (4.36-5.78); RDW 13.7 % (11.8-14.1); RDW-SD 41.6 fL; WBC 5.81 10^3/uL (4.4-10.8)
[2024-11-29 11:40] LABS: ALT 30 U/L (16-63); AST 24 U/L (15-37); Albumin 3.6 g/dL (3.4-5.0); Alkaline Phosphatase 96 U/L (46-116); Bilirubin, Direct 0.1 mg/dL (0.0-0.2); Bilirubin, Total 0.5 mg/dL (0.2-1.0); Total Protein 7.5 g/dL (6.4-8.2)
== END 2024-11-29 15:02 | disposition home or self-care (01) ==
LOC: LBO 15:02
PROVIDERS: Psychiatry & Neurology Neurology; PCP Family Medicine; Visit Provider Physician Assistant
DX: Z79.899 Other long term (current) drug therapy (principal); G35.A Relapsing-remitting multiple sclerosis; E29.1 Testicular hypofunction; R94.8 Abnormal results of function studies of other organs and systems
CPT/HCPCS: 36415; 80076; 82784; 84153; 84403; 82670; 85025